=== PATIENT | female | born 1950 | race Caucasian/White ===

== ENCOUNTER → 2016-10-30 | Outpatient (CLI) | payer MEDICARE ==
[2016-10-31 17:00] LABS: Hepatits C Virus RNA, Quant <12 IU/mL (<12); LOG HCV IU/mL <1.08 (<1.08)
== END | disposition home or self-care (01) ==
LOC: LABWHC1 12:05
DX: B18.2 Chronic viral hepatitis C (principal)
CPT/HCPCS: 36415; 82105; 87522

== ENCOUNTER → 2016-11-19 | Outpatient (CLI) | payer MEDICARE ==
[2016-11-19 18:45] LABS: Basophils % (A) 0 %; CHCM 31.7; Eosinophils % (A) 0 %; HCT 32.4 % (34.0-46.0); HDW 2.79; HGB 10.5 gm/dL (11.4-16.0); Hypochromasia Slight; Luc # (Auto) 0.02; Luc % (Auto) 1; Lymphocytes # (A) 0.7 k/uL (1.0-4.8); Lymphocytes % (A) 21 %; MCH 28.6 pg (25.0-35.0); MCHC 32.2 g/dL (31.0-37.0); MCV 88.6 fL (80.0-100.0); Mean Platelet Volume 7.9; Monocytes # (A) 0.1 k/uL (0-1.0); Monocytes % (A) 2 %; Neutrophils # (A) 2.5 k/uL (1.3-7.7); Neutrophils % (A) 76 %; RBC 3.66 m/uL (3.80-5.40); WBC 3.2 k/uL (3.8-10.6); WBC (Perox) 3.29
[2016-11-19 18:59] LABS: ALT 14 U/L (9-52); AST 20 U/L (14-36); Alkaline Phosphatase 58 U/L (38-126); Anion Gap 12 mmol/L; Blood Urea Nitrogen 13 mg/dL (7-17); Calcium 9.5 mg/dL (8.4-10.2); Carbon Dioxide 21 mmol/L (22-30); Chloride 107 mmol/L (98-107); Glucose 171 mg/dL (74-99); Non-African American GFR(MDRD) 55 (>60 ml/min/1.73 sqM); Potassium 4.8 mmol/L (3.5-5.1); Sodium 140 mmol/L (137-145); Total Bilirubin 0.4 mg/dL (0.2-1.3)
--- NOTE | 2016-11-19 19:45 | CT ---
EXAMINATION TYPE: CT abdomen wo/w con DATE OF EXAM: 11/19/2016 7:29 PM COMPARISON: 05/03/2015 HISTORY: Upper Abdominal pain CT DLP: 415.6 mGycm Automated exposure control for dose reduction was used. TECHNIQUE: Helical acquisition of images was performed from the lung bases through the top of iliac crest to include entire abdomen. CONTRAST: Performed with Oral Contrast and with IV Contrast, patient injected with 80 mL of Visipaque 320. FINDINGS: There are emphysematous changes at the lung bases. There is no pleural effusion. There is aortoiliac stent noted. There is no pericardial effusion. Liver shows no focal defect. Bile ducts are not dilated. Gallbladde r appears normal. There is no pancreatic mass. Spleen appears normal. Kidneys show satisfactory contrast opacification. There is no hydronephrosis. Noncontrast images show no renal calculus. There is aneurysm of the abdominal aorta that measures up to 4.5 cm. There is nor mal contrast opacification of the aortoiliac stent. I see no bony destructive process. There is no compression fracture. I see no intestinal wall thickening. There is no sign of ascites. IMPRESSION: AORTOILIAC STENT APPEARS IN GOOD POSITION. LARGE FUSIFORM ABDOMINAL AORTIC ANEURYSM IS STABLE COMPARE D TO OLD EXAM. NO SIGN OF AN ACUTE ABDOMEN. EMPHYSEMA. I DO NOT SEE A CAUSE FOR EPIGASTRIC PAIN.
== END | disposition home or self-care (01) ==
LOC: RADCTMAIN 17:55
DX: I71.4 Abdominal aortic aneurysm, without rupture (principal); R10.13 Epigastric pain; Z95.828 Presence of other vascular implants and grafts
CPT/HCPCS: 80053; 85025; 74170; 36415; Q9967

== ENCOUNTER → 2016-11-26 | Outpatient (CLI) | payer MEDICARE ==
--- NOTE | 2016-11-26 13:00 | MR ---
EXAMINATION TYPE: MR brain wo/w con DATE OF EXAM: 11/26/2016 12:00 PM COMPARISON: MRI brain February 15, 2014. HISTORY: Memory Loss / Atypical Face Pain TECHNIQUE: Multiplanar, multisequence images of the brain and brainstem is performed without and with IV contras t, utilizing 10 mL intravenous MultiHance . FINDINGS: Diffusion weighted images demonstrate no evidence of a recent infarct or other diffusion ab normality. There is no worrisome extra-axial fluid collection. The ventricular system and cisternal spaces are normal in size and appearance. The brain volume is age appropriate. There are some scatt ered foci of T2 hyperintensity seen throughout the deep and periventricular white matter. Approximate ly 10-15 scattered lesions are present. Largest measures 9 mm right patel radiata on axial image 20 stable from prior exam. No significant change from prior study is seen. Midline structures demonstrate normal morphology. The craniocervical junction appears within normal limits. Post contrast images demonstrate no new areas of abnormal enhancement. Prominent vascular st ructure right parietal-occipital level on axial images 19 through 23 is redemonstrated consistent wit h venous angioma. The dural venous sinuses appear patent. The visualized sinuses are clear and the gl obes are intact. Some increased fluid signal right mastoid air cells is present similar to prior. IMPRESSION: Mild nonspecific white matter changes may be on basis of chronic small vessel ischemic ch latasha in patient this age redemonstrated. Overall no significant change from prior MRI. No new suspici ous findings are evident.
== END | disposition home or self-care (01) ==
LOC: RADMRIMAIN 11:05
PROVIDERS: ATTEND Otolaryngology
DX: R90.82 White matter disease, unspecified (principal)
CPT/HCPCS: 70553; A9577

== ENCOUNTER → 2016-12-25 | Outpatient (CLI) | payer MEDICARE ==
--- NOTE | 2016-12-25 13:14 | FL ---
EXAMINATION TYPE: FL barium swallow DATE OF EXAM: 12/25/2016 12:12 PM COMPARISON: 01/27/2015 HISTORY: Dysphasia TECHNIQUE: Single contrast barium swallow FINDINGS: Barium was swallowed without difficulty and passed into the esophagus without delay. There is a reduced caliber of the esophagus at the level of the cervical spine surgical site involving the upper, mid and lower cervical spine. Mid and distal esophagus demonstrated normal peristalsis and motility with no hiatal hernia. No reflu x seen on today's exam. IMPRESSION: 1. No evidence of obstruction. No intraluminal filling defect. There is reduced caliber of the esopha juancarlos within the cervical spine at the level of the previous cervical spinal surgery. Correlate with di rect visualization as clinically warranted.
== END | disposition home or self-care (01) ==
LOC: RADFLWHC 11:20
PROVIDERS: ATTEND Family Medicine
DX: K22.8 Other specified diseases of esophagus (principal); R10.9 Unspecified abdominal pain; Z98.890 Other specified postprocedural states
CPT/HCPCS: 74220

== ENCOUNTER → 2016-12-27 | Outpatient (CLI) | payer MEDICARE ==
--- NOTE | 2016-12-30 11:54 | MM ---
Reason for exam: screening (asymptomatic). Last mammogram was performed 1 year and 3 months ago. History: Patient is postmenopausal. Physical Findings: A clinical breast exam by your physician is recommended on an annual basis and results should be correlated with mammographic findings. MG 3D Screening Mammo W/Cad Bilateral CC and MLO view(s) were taken. Prior study comparison: September 20, 2015, bilateral MG 3d screening mammo w/cad. October 28, 2013, bilateral digital screening mammo w/CAD. October 26, 2012, bilateral digital screening mammo w/CAD. The breast tissue is extremely dense which could obscure a lesion on mammography. Finding: There are typically benign dystrophic, round calcifications in both breasts. There is no discrete abnormality. ASSESSMENT: Benign, BI-RAD 2 RECOMMENDATION: Routine screening mammogram of both breasts in 1 year.
== END | disposition home or self-care (01) ==
LOC: RADMAMWWP 14:45
PROVIDERS: ATTEND Family Medicine
DX: Z12.31 Encounter for screening mammogram for malignant neoplasm of breast (principal)
CPT/HCPCS: 77063; G0202

== ENCOUNTER 2017-01-31 08:18 | Day surgery (SDC) | payer MEDICARE ==
[2017-01-30 10:31] VITALS: BMI 18.2
[~2017-01-31 08:18] MED LIST: LACTATED RINGERS 1,000 ML IV SCH; LIDOCAINE 1% 20 ML VIAL (10MG/ML) FOR IV START INTRADERMA PRN
[2017-01-31 09:20] VITALS: RESP 16; TEMP 97.7
[2017-01-31] MEDS ORDERED: PROPOFOL 10 MG/ML 20 ML VIAL IV ONE (09:29)
--- NOTE | 2017-01-31 09:33 | P.GSHP ---
History of Present Illness H&P Date: 01/31/17 Chief Complaint: GERD, dysphagia Patient today with complaints of dysphagia. She has history of chronic reflux. She has had an upper endoscopy in the past but does not recall what showed. Dysphagia is worse with solids. Past Medical History Past Medical History: Chest Pain / Angina, COPD, Deep Vein Thrombosis (DVT), GERD/Reflux, Hypertension, Liver Disease, Myocardial Infarction ([place]), Musculoskeletal Disorder, Sleep Apnea/CPAP/BIPAP, Vascular Disorder Additional Past Medical History / Comment(s): Abominal Aortic Aneurysm(HAD SX). DVT RT LEG. HEP C, BACK PROB, DDD. VARICOSE VEINS. O2 2 LITERS N/C FOR PRN USE AT NIGHT. Last Myocardial Infarction Date:: 06/2011 History of Any Multi-Drug Resistant Organisms: None Reported Past Surgical History: Bladder Surgery, Heart Catheterization With Stent, Hysterectomy, Orthopedic Surgery Additional Past Surgical History / Comment(s): HEART STENT 2010. AAA REPAIR; AAA STENT 2005. VARICOSE VEIN STRIPPING. EXP LAP. BX THROAT/LIVER/STOMACH. HAD RT FOOT INFECTION, sx x2 SALMONELLA. R SHOULDER SCOPE. left knee arthroscopy Past Anesthesia/Blood Transfusion Reactions: No Reported Reaction Date of Last Stent Placement:: 2010 Smoking Status: Current every day smoker - Past Family History Father Additional Family Medical History / Comment(s): FROM CIRRHOSIS OF THE LIVER Mother Family Medical History: COPD Additional Family Medical History / Comment(s): FROM AAA, HAD HX TB Medications and Allergies Home Medications Medication Instructions Recorded Confirmed Type ALPRAZolam [Xanax] 1 mg PO QID 12/27/13 01/30/17 History Albuterol Sulfate [Ventolin HFA] 2 puff INHALATION RT-TID PRN 12/27/13 01/30/17 History Aspirin 81 mg PO DAILY@1700 12/27/13 01/31/17 History Atenolol [Tenormin] 12.5 mg PO HS 12/27/13 01/30/17 History Dexlansoprazole [Dexilant] 60 mg PO DAILY 12/27/13 01/30/17 History Fluticasone/Salmeterol [Advair 2 puff INHALATION RT-BID 12/27/13 01/30/17 History 250-50 Diskus] Sucralfate [Carafate] 1 gm PO TID 12/27/13 01/30/17 History cycloSPORINE [Restasis] 2 drop BOTH EYES BID 12/27/13 01/30/17 History Albuterol Nebulized [Ventolin 2.5 mg INHALATION RT-Q4H PRN 09/12/14 01/30/17 History Nebulized] DULoxetine HCL [Cymbalta] 30 mg PO DAILY 09/12/14 01/30/17 History DULoxetine HCL [Cymbalta] 60 mg PO HS 09/12/14 01/30/17 History Pramipexole [Mirapex] 0.125 mg PO HS 09/12/14 01/30/17 History Tiotropium 18 Mcg/Puff [Spiriva] 1 cap INHALATION RT-HS 09/12/14 01/30/17 History Topiramate [Topamax] 50 mg PO BID 05/03/15 01/30/17 History Oxybutynin Xl [Ditropan XL] 5 mg PO BID 05/16/15 01/30/17 History Nicotine 14Mg/24Hr Patch [Habitrol] 1 patch TRANSDERM DAILY PRN 01/30/17 History Nitroglycerin Sl Tabs [Nitrostat] 0.4 mg SUBLINGUAL Q5M PRN 01/30/17 01/30/17 History guaiFENesin [Mucinex] 1,200 mg PO BID 01/30/17 01/30/17 History Allergies Allergy/AdvReac Type Severity Reaction Status Date / Time naproxen sodium [From Aleve] Allergy Severe Anaphylaxis Verified 01/31/17 09:18 adhesive Allergy Rash/Hives Verified 01/31/17 09:18 cinnamon [Cinnamon] Allergy Dyspnea Verified 01/31/17 09:18 clindamycin Allergy Anaphylaxis Verified 01/31/17 09:18 codeine Allergy Nausea & Verified 01/31/17 09:18 Vomiting gentamicin [Gentamicin] Allergy SWELLING Verified 01/31/17 09:18 OF FACE W/ EYE DROPS Iodinated Contrast Media - Allergy VAGINAL Verified 01/31/17 09:18 Oral and BLEEDING [Iodinated Contrast Media - AFTER IV Dye] latex Allergy Rash/Hives Verified 01/31/17 09:18 levothyroxine sodium Allergy Unknown Verified 01/31/17 09:18 [From Synthroid] montelukast sodium Allergy Wheezing Verified 01/31/17 09:18 [From Singulair] pantoprazole sodium Allergy Abdominal Verified 01/31/17 09:18 [From Protonix] Pain Penicillins Allergy Rash/Hives Verified 01/31/17 09:18 red dye Allergy Abdominal Verified 01/31/17 09:18 Pain Sulfa (Sulfonamide Allergy Swelling Verified 01/31/17 09:18 Antibiotics) IN MOUTH sulfamethoxazole Allergy swelling Verified 01/31/17 09:18 [From Bactrim] tongue trimethoprim [From Bactrim] Allergy Swelling Verified 01/31/17 09:18 venom-honey bee Allergy Dyspnea Verified 01/31/17 09:18 [bee venom (honey bee)] BANDAIDS Allergy Rash/Hives Uncoded 01/31/17 09:18 paola Allergy Dyspnea Uncoded 01/31/17 09:18 Surgical - Exam Vital Signs Temp Pulse Resp BP Pulse Ox 97.7 F 60 16 134/88 98 01/31/17 09:19 01/31/17 09:19 01/31/17 09:19 01/31/17 09:19 01/31/17 09:19 Physical exam: General: Well-developed, somewhat malnourished HEENT: Normocephalic, sclerae nonicteric Abdomen: Nontender, nondistended Extremities: No edema Neuro: Alert and oriented Assessment and Plan (1) GERD (gastroesophageal reflux disease) Narrative/Plan: Will proceed with upper endoscopy and possible dilation at this time. Risks of bleeding and perforation were discussed. She understands and wishes to proceed. Status: Acute
--- NOTE | 2017-01-31 09:43 | P.PCN ---
Date of Procedure: 01/31/17 Preoperative Diagnosis: Postoperative Diagnosis: Procedure(s) Performed: Preoperative Dx: Dysphagia, GERD Postoperative Dx: Duodenitis, gastritis, small hiatal hernia Procedure: EGD with Bx Anesthesia: Sedation Endoscopist: Dr. Negron Specimens: Duodenum, antrum Endoscopic Procedure: The patient was on the endoscopy table in the left decubitus position. The Olympus gastroscope was inserted into the oropharynx and passed under direct visualization to the region of the third portion of the duodenum. From that point the scope was slowly withdrawn inspecting all surfaces carefully. There were no neoplastic inflammatory or polypoid lesions throughout the duodenum. Biopsy of the duodenum took place. The pylorus was widely patent. The stomach was carefully inspected. There was gastritis present. A biopsy of the antrum took place to rule out H. pylori. Retroflexion revealed a small hiatal hernia. The esophagus was then carefully examined. There were no neoplastic inflammatory or polypoid lesions throughout the visualized esophagus. The patient was then taken to the recovery room in stable condition per anesthesia guidelines. Recommendations: Await biopsy results. Add antiacids. Implants: Indications for Procedure: Operative Findings: Description of Procedure:
[2017-01-31 10:18] VITALS: BP 131/60; PULSE 61
== END 2017-01-31 10:43 | disposition home or self-care (01) ==
LOC: ORWHC2ENDO 08:18
PROVIDERS: ATTEND Surgery
DX: K21.9 Gastro-esophageal reflux disease without esophagitis (principal); K29.50 Unspecified chronic gastritis without bleeding; K29.80 Duodenitis without bleeding; K44.9 Diaphragmatic hernia without obstruction or gangrene; J44.9 Chronic obstructive pulmonary disease, unspecified; I10 Essential (primary) hypertension; F32.9 Major depressive disorder, single episode, unspecified; G47.33 Obstructive sleep apnea (adult) (pediatric); I25.2 Old myocardial infarction; F17.200 Nicotine dependence, unspecified, uncomplicated; Z99.81 Dependence on supplemental oxygen; Z88.6 Allergy status to analgesic agent; Z91.048 Other nonmedicinal substance allergy status; Z88.5 Allergy status to narcotic agent; Z88.1 Allergy status to other antibiotic agents; Z91.041 Radiographic dye allergy status; Z91.018 Allergy to other foods; Z91.040 Latex allergy status; Z88.0 Allergy status to penicillin; Z88.2 Allergy status to sulfonamides; Z91.030 Bee allergy status; Z88.8 Allergy status to other drugs, medicaments and biological substances; Z79.82 Long term (current) use of aspirin; Z79.51 Long term (current) use of inhaled steroids; Z79.899 Other long term (current) drug therapy; Z86.718 Personal history of other venous thrombosis and embolism; Z95.5 Presence of coronary angioplasty implant and graft; Z83.6 Family history of other diseases of the respiratory system; Z90.710 Acquired absence of both cervix and uterus
CPT/HCPCS: 43239; 88305; 88342; J2704

== ENCOUNTER 2017-02-13 10:54 | Inpatient (IN) | payer MEDICARE ==
[2017-02-13] MEDS ORDERED: methylPREDNISolone SOD SUCCI 125 MG/2 ML VIAL IV STA (10:56)
[2017-02-13] MEDS ORDERED: ALBUTEROL NEBULIZED 2.5 MG/3 ML INHALATION STA (10:56)
--- NOTE | 2017-02-13 11:18 | ED ---
General Adult HPI - General Chief complaint: Shortness of Breath Stated complaint: Diff breathing Time Seen by Provider: 02/13/17 11:00 Source: patient, RN notes reviewed Mode of arrival: EMS Limitations: no limitations - History of Present Illness Initial comments: This is a 66-year-old female who presents emergency Department with a past medical history significant for COPD. Patient comes in today because she is extremely short of breath. Patient states any exertion makes it considerably worse. Patient states EMS gave her some breathing treatments and put on BiPAP and that is made her feel considerably better. Patient denies any recent fever or chills. Patient states she does have a cough recently. Patient denies any sputum production. Patient denies chest pain or palpitations. Patient denies abdominal pain patient denies nausea vomiting diarrhea. Patient denies any lightheadedness dizziness or syncopal episodes. - Related Data Home Medications Medication Instructions Recorded Confirmed ALPRAZolam [Xanax] 1 mg PO QID PRN 12/27/13 02/13/17 Albuterol Sulfate [Ventolin HFA] 2 puff INHALATION RT-TID PRN 12/27/13 02/13/17 Aspirin 81 mg PO DAILY@1700 12/27/13 02/13/17 Atenolol [Tenormin] 12.5 mg PO HS 12/27/13 02/13/17 Dexlansoprazole [Dexilant] 60 mg PO DAILY 12/27/13 02/13/17 Sucralfate [Carafate] 1 gm PO [facility] 12/27/13 02/13/17 cycloSPORINE [Restasis] 2 drop BOTH EYES BID 12/27/13 02/13/17 Albuterol Nebulized [Ventolin 2.5 mg INHALATION RT-QID PRN 09/12/14 02/13/17 Nebulized] DULoxetine HCL [Cymbalta] 30 mg PO DAILY 09/12/14 02/13/17 DULoxetine HCL [Cymbalta] 60 mg PO 09/12/14 02/13/17 Pramipexole [Mirapex] 0.125 mg PO HS 09/12/14 02/13/17 Tiotropium 18 Mcg/Puff [Spiriva] 1 cap INHALATION RT-HS 09/12/14 02/13/17 Topiramate [Topamax] 50 mg PO BID 05/03/15 02/13/17 Oxybutynin Xl [Ditropan XL] 5 mg PO BID 05/16/15 02/13/17 Nicotine 14Mg/24Hr Patch [Habitrol] 1 patch TRANSDERM DAILY PRN 01/30/17 Nitroglycerin Sl Tabs [Nitrostat] 0.4 mg SUBLINGUAL Q5M PRN 01/30/17 02/13/17 Calcium Carbonate/Vitamin D3 1 tab PO DAILY 02/13/17 02/13/17 [Calcium 600-Vit D3 800 Tab] Cholecalciferol [Vitamin D3] 1,000 unit PO DAILY 02/13/17 02/13/17 Fluticasone/Salmeterol [Advair Hfa 2 puff INHALATION RT-BID 02/13/17 02/13/17 115-21 Mcg Inhaler] guaiFENesin [Mucinex] 600 mg PO BID 02/13/17 02/13/17 Previous Rx's Medication Instructions Recorded Famotidine [Pepcid] 20 mg PO DAILY #90 tablet 01/31/17 Allergies Allergy/AdvReac Type Severity Reaction Status Date / Time naproxen sodium [From Aleve] Allergy Severe Anaphylaxis Verified 02/13/17 11:51 adhesive Allergy Rash/Hives Verified 01/31/17 09:18 cinnamon [Cinnamon] Allergy Dyspnea Verified 01/31/17 09:18 clindamycin Allergy Anaphylaxis Verified 01/31/17 09:18 codeine Allergy Nausea & Verified 02/13/17 11:51 Vomiting gentamicin [Gentamicin] Allergy SWELLING Verified 01/31/17 09:18 OF FACE W/ EYE DROPS Iodinated Contrast Media - Allergy VAGINAL Verified 02/13/17 11:51 Oral and BLEEDING [Iodinated Contrast Media - AFTER IV Dye] latex Allergy Rash/Hives Verified 02/13/17 11:51 levothyroxine sodium Allergy Unknown Verified 01/31/17 09:18 [From Synthroid] montelukast sodium Allergy Wheezing Verified 02/13/17 11:51 [From Singulair] pantoprazole sodium Allergy Abdominal Verified 01/31/17 09:18 [From Protonix] Pain Penicillins Allergy Rash/Hives Verified 02/13/17 11:51 red dye Allergy Abdominal Verified 02/13/17 11:51 Pain Sulfa (Sulfonamide Allergy Swelling Verified 02/13/17 11:51 Antibiotics) IN MOUTH sulfamethoxazole Allergy swelling Verified 02/13/17 11:51 [From Bactrim] tongue trimethoprim [From Bactrim] Allergy Swelling Verified 02/13/17 11:51 venom-honey bee Allergy Dyspnea Verified 01/31/17 09:18 [bee venom (honey bee)] BANDAIDS Allergy Rash/Hives Uncoded 01/31/17 09:18 paola Allergy Dyspnea Uncoded 01/31/17 09:18 Review of Systems ROS Statement: Those systems with pertinent positive or pertinent negative responses have been documented in the HPI. ROS Other: All systems not noted in ROS Statement are negative. Past Medical History Past Medical History: Asthma, Chest Pain / Angina, COPD, Deep Vein Thrombosis ( DVT), GERD/Reflux, Hypertension, Liver Disease, Myocardial Infarction ([place]), Musculoskeletal Disorder, Sleep Apnea/CPAP/BIPAP, Vascular Disorder Additional Past Medical History / Comment(s): Abominal Aortic Aneurysm(HAD SX). DVT RT LEG. HEP C, BACK PROB, DDD. VARICOSE VEINS. O2 2 LITERS N/C FOR PRN USE AT NIGHT. Last Myocardial Infarction Date:: 06/2011 History of Any Multi-Drug Resistant Organisms: None Reported Past Surgical History: Bladder Surgery, Heart Catheterization With Stent, Hysterectomy, Orthopedic Surgery Additional Past Surgical History / Comment(s): HEART STENT 2010. AAA REPAIR; AAA STENT 2005. VARICOSE VEIN STRIPPING. EXP LAP. BX THROAT/LIVER/STOMACH. HAD RT FOOT INFECTION, SALMONELLA.R SHOULDER SCOPE. Past Anesthesia/Blood Transfusion Reactions: No Reported Reaction Date of Last Stent Placement:: 2010 Past Psychological History: Depression, Panic Disorder Smoking Status: Former smoker - Past Family History Father Additional Family Medical History / Comment(s): FROM CIRRHOSIS OF THE LIVER Mother Family Medical History: COPD Additional Family Medical History / Comment(s): FROM AAA, HAD HX TB General Exam - General Exam Comments Initial Comments: GENERAL: Patient is well-developed and well-nourished. Patient is nontoxic and well- hydrated and is in mild distress. ENT: Neck is soft and supple. No significant lymphadenopathy is noted. Oropharynx is clear. Moist mucous membranes. Neck has full range of motion without eliciting any pain. EYES: The sclera were anicteric and conjunctiva were pink and moist. Extraocular movements were intact and pupils were equal round and reactive to light. Eyelids were unremarkable. PULMONARY: Unlabored respirations. Patient has diminished breath sounds throughout. CARDIOVASCULAR: There is a regular rate and rhythm without any murmurs gallops or rubs. ABDOMEN: Soft and nontender with normal bowel sounds. No palpable organomegaly was noted. There is no palpable pulsatile mass. SKIN: Skin is clear with no lesions or rashes and otherwise unremarkable. NEUROLOGIC: Patient is alert and oriented x3. Cranial nerves II through XII are grossly intact. Motor and sensory are also intact. Normal speech, volume and content. Symmetrical smile. MUSCULOSKELETAL: Normal extremities with adequate strength and full range of motion. No lower extremity swelling or edema. No calf tenderness. LYMPHATICS: No significant lymphadenopathy is noted PSYCHIATRIC: Normal psychiatric evaluation. Normal interpersonal interactions appears functionally intact in deals appropriately with others. No signs of depression. No signs of anxiety. Limitations: no limitations Course Vital Signs 02/13/17 02/13/17 02/13/17 10:59 11:14 11:33 Temperature 97.8 F Pulse Rate 78 74 76 Respiratory 28 H Rate Blood Pressure 165/98 O2 Sat by Pulse 97 Oximetry Medical Decision Making - Medical Decision Making EKG shows normal sinus rhythm at 70 bpm IN interval is 158 QRSs 84 QT interval is 418 QTC is 451. Patient's EKG shows no ST segment elevation or depression or T-wave abnormality is noted. Chest x-ray shows severe COPD. Patient had to be on BiPAP keep her oxygenation up while she was in the emergency department. She received 2 breathing treatments emergency department after she had already received 2 in route. Patient also got Solu-Medrol. Patient was admitted I wrote admitting orders I spoke with the admitting physician for Dr. Colbert and he agreed with admission. - Lab Data Result diagrams: 02/13/17 11:05 02/13/17 11:05 Lab Results 02/13/17 02/13/17 02/13/17 Range/Units 11:05 11:05 11:05 WBC 6.8 (3.8-10.6) k/uL RBC 3.96 (3.80-5.40) m/uL Hgb 10.6 L (11.4-16.0) gm/dL Hct 33.6 L (34.0-46.0) % MCV 84.9 D (80.0-100.0) fL MCH 26.8 (25.0-35.0) pg MCHC 31.6 (31.0-37.0) g/dL RDW 15.6 H (11.5-15.5) % Plt Count 176 (150-450) k/uL Neutrophils % 47 % Lymphocytes % 35 % Monocytes % 5 % Eosinophils % 11 % Basophils % 1 % Neutrophils # 3.2 (1.3-7.7) k/uL Lymphocytes # 2.4 (1.0-4.8) k/uL Monocytes # 0.3 (0-1.0) k/uL Eosinophils # 0.8 H (0-0.7) k/uL Basophils # 0.0 (0-0.2) k/uL Hypochromasia Slight PT (9.0-12.0) sec INR (<1.1) APTT (22.0-30.0) sec Sodium 143 (137-145) mmol/L Potassium 3.9 (3.5-5.1) mmol/L Chloride 111 H (98-107) mmol/L Carbon Dioxide 21 L (22-30) mmol/L Anion Gap 11 mmol/L BUN 13 (7-17) mg/dL Creatinine 0.85 (0.52-1.04) mg/dL Est GFR (MDRD) Af Amer >60 (>60 ml/min/1.73 sqM) Est GFR (MDRD) Non-Af >60 (>60 ml/min/1.73 sqM) Glucose 115 H (74-99) mg/dL Calcium 8.9 (8.4-10.2) mg/dL Total Bilirubin 0.5 (0.2-1.3) mg/dL AST 25 (14-36) U/L ALT 17 (9-52) U/L Alkaline Phosphatase 64 (38-126) U/L Total Creatine Kinase 81 (30-135) U/L CK-MB (CK-2) 1.1 (0.0-2.4) ng/mL CK-MB (CK-2) Rel Index 1.4 Troponin I <0.012 (0.000-0.034) ng/mL Total Protein 6.5 (6.3-8.2) g/dL Albumin 3.8 (3.5-5.0) g/dL 06/29/17 Range/Units 11:05 WBC (3.8-10.6) k/uL RBC (3.80-5.40) m/uL Hgb (11.4-16.0) gm/dL Hct (34.0-46.0) % MCV (80.0-100.0) fL MCH (25.0-35.0) pg MCHC (31.0-37.0) g/dL RDW (11.5-15.5) % Plt Count (150-450) k/uL Neutrophils % % Lymphocytes % % Monocytes % % Eosinophils % % Basophils % % Neutrophils # (1.3-7.7) k/uL Lymphocytes # (1.0-4.8) k/uL Monocytes # (0-1.0) k/uL Eosinophils # (0-0.7) k/uL Basophils # (0-0.2) k/uL Hypochromasia PT 10.4 (9.0-12.0) sec INR 1.0 (<1.1) APTT 22.5 (22.0-30.0) sec Sodium (137-145) mmol/L Potassium (3.5-5.1) mmol/L Chloride (98-107) mmol/L Carbon Dioxide (22-30) mmol/L Anion Gap mmol/L BUN (7-17) mg/dL Creatinine (0.52-1.04) mg/dL Est GFR (MDRD) Af Amer (>60 ml/min/1.73 sqM) Est GFR (MDRD) Non-Af (>60 ml/min/1.73 sqM) Glucose (74-99) mg/dL Calcium (8.4-10.2) mg/dL Total Bilirubin (0.2-1.3) mg/dL AST (14-36) U/L ALT (9-52) U/L Alkaline Phosphatase (38-126) U/L Total Creatine Kinase (30-135) U/L CK-MB (CK-2) (0.0-2.4) ng/mL CK-MB (CK-2) Rel Index Troponin I (0.000-0.034) ng/mL Total Protein (6.3-8.2) g/dL Albumin (3.5-5.0) g/dL Critical Care Time Critical Care Time: Yes Total Critical Care Time: 35 Disposition Clinical Impression: Acute exacerbation of chronic obstructive airways disease Disposition: ADMITTED IP TO THIS HOSP Referrals: Jenaro Colbert DO [Primary Care Provider] - 1-2 days Time of Disposition: 12:33
[2017-02-13 11:21] LABS: Basophils % (A) 1 %; CH 26.7; CHCM 31.6; Eosinophils # (A) 0.8 k/uL (0-0.7); Eosinophils % (A) 11 %; HCT 33.6 % (34.0-46.0); HDW 2.99; HGB 10.6 gm/dL (11.4-16.0); Hypochromasia Slight; Luc # (Auto) 0.13; Luc % (Auto) 2; Lymphocytes # (A) 2.4 k/uL (1.0-4.8); Lymphocytes % (A) 35 %; MCH 26.8 pg (25.0-35.0); MCHC 31.6 g/dL (31.0-37.0); Mean Platelet Volume 8.3; Monocytes # (A) 0.3 k/uL (0-1.0); Monocytes % (A) 5 %; Neutrophils # (A) 3.2 k/uL (1.3-7.7); Neutrophils % (A) 47 %; RBC 3.96 m/uL (3.80-5.40); RDW 15.6 % (11.5-15.5); WBC 6.8 k/uL (3.8-10.6); WBC (Perox) 6.52
[2017-02-13 11:22] LABS: MCV 84.9 fL (80.0-100.0)
[2017-02-13 11:27] LABS: ALT 17 U/L (9-52); AST 25 U/L (14-36); Alkaline Phosphatase 64 U/L (38-126); Anion Gap 11 mmol/L; Blood Urea Nitrogen 13 mg/dL (7-17); Calcium 8.9 mg/dL (8.4-10.2); Carbon Dioxide 21 mmol/L (22-30); Chloride 111 mmol/L (98-107); Glucose 115 mg/dL (74-99); Non-African American GFR(MDRD) >60 (>60 ml/min/1.73 sqM); Potassium 3.9 mmol/L (3.5-5.1); Sodium 143 mmol/L (137-145); Total Bilirubin 0.5 mg/dL (0.2-1.3); Total Protein 6.5 g/dL (6.3-8.2)
[2017-02-13 11:39] LABS: Creatine Kinase 81 U/L (30-135)
[2017-02-13 11:52] LABS: Creatine Kinase MB 1.1 ng/mL (0.0-2.4); Troponin I <0.012 ng/mL (0.000-0.034)
--- NOTE | 2017-02-13 11:52 | XR ---
EXAMINATION TYPE: XR chest 1V DATE OF EXAM: 02/13/2017 COMPARISON: Prior chest x-ray 05/16/2015 HISTORY: Difficulty breathing, shortness of breath TECHNIQUE: Single frontal view of the chest is obtained. FINDINGS: There is no focal air space opacity, pleural effusion, or pneumothorax seen. The cardiac silhouette size is stable. There are overlying cardiac leads. Prominent lung volumes compatible with underlying COPD. Postop changes are noted in the neck. Aortic stent graft is present. The osseous st ructures are intact. IMPRESSION: No acute process.
[2017-02-13 11:57] LABS: Partial Thromboplastin Time 22.5 sec (22.0-30.0); Prothrombin Time 10.4 sec (9.0-12.0)
[2017-02-13] MEDS: IPRATROPIUM-ALBUTEROL 3 ML NEB INHALATION PRN (13:20)
[2017-02-13] MEDS ORDERED: NICOTINE 14MG/24HR PATCH TRANSDERM PRN (14:55)
[2017-02-13] MEDS ORDERED: NITROGLYCERIN SL TABS 0.4 MG TAB SUBLINGUAL PRN (14:55)
--- NOTE | 2017-02-13 15:24 | P.CNPUL ---
History of Present Illness Consult date: 02/13/17 Reason for consult: dyspnea History of present illness: This is a 66-year-old female who presents emergency Department with a past medical history significant for COPD. Patient comes in today because she is extremely short of breath. Patient states any exertion makes it considerably worse. Patient states EMS gave her some breathing treatments and put on BiPAP and that is made her feel considerably better. Patient denies any recent fever or chills. Patient states she does have a cough recently. Patient denies any sputum production. Patient denies chest pain or palpitations. Patient denies abdominal pain patient denies nausea vomiting diarrhea. Patient denies any lightheadedness dizziness or syncopal episodes. The patient is known to me. I have taken care of her COPD in the past. Her FEV1 is relatively preserved with an FEV1 of 87% of predicted. She has been maintained on a combination of Advair and Spiriva. She doesn't use her inhalers on a regular basis. She is also known to have chronic generalized anxiety disorder, chronic hepatitis C, abdominal aortic aneurysm, and hyperlipidemia. Her chest x-ray shows no acute cardiopulmonary process. Her white cell count is not elevated. The rest of the blood work essentially within normal limits. Review of Systems All systems: negative Constitutional: Denies chills, Denies fever Eyes: denies blurred vision, denies pain Ears, nose, mouth and throat: Denies headache, Denies sore throat Cardiovascular: Denies chest pain, Denies shortness of breath Respiratory: Denies cough Gastrointestinal: Denies abdominal pain, Denies diarrhea, Denies nausea, Denies vomiting Genitourinary: Denies dysuria, Denies hematuria Musculoskeletal: Denies myalgias Integumentary: Denies pruritus, Denies rash Neurological: Denies numbness, Denies weakness Psychiatric: Denies anxiety, Denies depression Endocrine: Denies fatigue, Denies weight change Past Medical History Past Medical History: Asthma, Chest Pain / Angina, COPD, Deep Vein Thrombosis ( DVT), GERD/Reflux, Hypertension, Liver Disease, Myocardial Infarction ([place]), Musculoskeletal Disorder, Sleep Apnea/CPAP/BIPAP, Vascular Disorder Additional Past Medical History / Comment(s): COPD, abdominal aortic aneurysm, previous history of a DVT of the right lower extremity, hepatitis C, chronic back pain, osteoarthritis, coronary artery disease, hypertension, RLS. Last Myocardial Infarction Date:: 06/2011 History of Any Multi-Drug Resistant Organisms: None Reported Past Surgical History: Bladder Surgery, Heart Catheterization With Stent, Hysterectomy, Orthopedic Surgery Additional Past Surgical History / Comment(s): Cardiac catheterization and insertion of coronary stent in 2010, abdominal aortic aneurysm endovascular stent insertion 2005, varicose vein stripping in the right lower extremity, liver biopsy, expiratory laparotomy, right foot surgery, right shoulder surgery/ arthroscopy, colonoscopy, bladder suspension surgery, hysterectomy Past Anesthesia/Blood Transfusion Reactions: No Reported Reaction Date of Last Stent Placement:: 2010 Smoking Status: Current every day smoker - Past Family History Father Additional Family Medical History / Comment(s): FROM CIRRHOSIS OF THE LIVER Mother Family Medical History: COPD Additional Family Medical History / Comment(s): FROM AAA, HAD HX TB Medications and Allergies Home Medications Medication Instructions Recorded Confirmed Type ALPRAZolam [Xanax] 1 mg PO QID PRN 12/27/13 02/13/17 History Albuterol Sulfate [Ventolin HFA] 2 puff INHALATION RT-TID PRN 12/27/13 02/13/17 History Aspirin 81 mg PO DAILY@1700 12/27/13 02/13/17 History Atenolol [Tenormin] 12.5 mg PO 12/27/13 02/13/17 History Dexlansoprazole [Dexilant] 60 mg PO DAILY 12/27/13 02/13/17 History Sucralfate [Carafate] 1 gm PO [facility] 12/27/13 02/13/17 History cycloSPORINE [Restasis] 2 drop BOTH EYES BID 12/27/13 02/13/17 History Albuterol Nebulized [Ventolin 2.5 mg INHALATION RT-QID PRN 09/12/14 02/13/17 History Nebulized] DULoxetine HCL [Cymbalta] 30 mg PO DAILY 09/12/14 02/13/17 History DULoxetine HCL [Cymbalta] 60 mg PO HS 09/12/14 02/13/17 History Pramipexole [Mirapex] 0.125 mg PO HS 09/12/14 02/13/17 History Tiotropium 18 Mcg/Puff [Spiriva] 1 cap INHALATION RT-HS 09/12/14 02/13/17 History Topiramate [Topamax] 50 mg PO BID 05/03/15 02/13/17 History Oxybutynin Xl [Ditropan XL] 5 mg PO BID 05/16/15 02/13/17 History Nicotine 14Mg/24Hr Patch [Habitrol] 1 patch TRANSDERM DAILY PRN 01/30/17 History Nitroglycerin Sl Tabs [Nitrostat] 0.4 mg SUBLINGUAL Q5M PRN 01/30/17 02/13/17 History Butalb/APAP/Caff 50-325-40Mg 0.5 tab PO Q4H PRN 02/13/17 02/13/17 History [Fioricet 50-325-40] Calcium Carbonate/Vitamin D3 1 tab PO DAILY 02/13/17 02/13/17 History [Calcium 600-Vit D3 800 Tab] Cholecalciferol [Vitamin D3] 1,000 unit PO DAILY 02/13/17 02/13/17 History Fluticasone/Salmeterol [Advair Hfa 2 puff INHALATION RT-BID 02/13/17 02/13/17 History 115-21 Mcg Inhaler] guaiFENesin [Mucinex] 600 mg PO BID 02/13/17 02/13/17 History Allergies Allergy/AdvReac Type Severity Reaction Status Date / Time naproxen sodium [From Aleve] Allergy Severe Anaphylaxis Verified 02/13/17 11:51 adhesive Allergy Rash/Hives Verified 01/31/17 09:18 cinnamon [Cinnamon] Allergy Dyspnea Verified 01/31/17 09:18 clindamycin Allergy Anaphylaxis Verified 01/31/17 09:18 codeine Allergy Nausea & Verified 02/13/17 11:51 Vomiting gentamicin [Gentamicin] Allergy SWELLING Verified 01/31/17 09:18 OF FACE W/ EYE DROPS Iodinated Contrast Media - Allergy VAGINAL Verified 02/13/17 11:51 Oral and BLEEDING [Iodinated Contrast Media - AFTER IV Dye] latex Allergy Rash/Hives Verified 02/13/17 11:51 levothyroxine sodium Allergy Unknown Verified 01/31/17 09:18 [From Synthroid] montelukast sodium Allergy Wheezing Verified 02/13/17 11:51 [From Singulair] pantoprazole sodium Allergy Abdominal Verified 01/31/17 09:18 [From Protonix] Pain Penicillins Allergy Rash/Hives Verified 02/13/17 11:51 red dye Allergy Abdominal Verified 02/13/17 11:51 Pain Sulfa (Sulfonamide Allergy Swelling Verified 02/13/17 11:51 Antibiotics) IN MOUTH sulfamethoxazole Allergy swelling Verified 02/13/17 11:51 [From Bactrim] tongue trimethoprim [From Bactrim] Allergy Swelling Verified 02/13/17 11:51 venom-honey bee Allergy Dyspnea Verified 01/31/17 09:18 [bee venom (honey bee)] BANDAIDS Allergy Rash/Hives Uncoded 01/31/17 09:18 paola Allergy Dyspnea Uncoded 01/31/17 09:18 Physical Exam Vitals: Vital Signs Temp Pulse Pulse Resp BP BP Pulse Ox 02/13/17 14:15 98.6 F 76 132/100 99 02/13/17 13:39 72 02/13/17 13:23 70 95 02/13/17 13:22 97.5 F L 71 20 152/66 95 02/13/17 12:55 74 18 99 02/13/17 12:45 6 L 02/13/17 12:34 98.8 F 76 28 H 175/79 99 02/13/17 11:33 76 02/13/17 11:14 74 02/13/17 10:59 97.8 F 78 28 H 165/98 97 Intake and Output 02/13/17 02/13/17 02/13/17 06:59 14:59 22:59 Intake Total 0 Balance 0 Intake: Oral 0 Other: Weight 46.72 kg Patient Weight 02/14/17 06:59 Weight 46.72 kg The patient appeared looks thin, frail, somewhat cachectic at this point.. Vital signs as documented. Head exam is unremarkable. No scleral icterus or corneal arcus noted. Neck is without jugular venous distension, thyromegaly, or carotid bruits. Carotid upstrokes are brisk bilaterally. Lungs sounds are markedly diminished bilaterally along with some few scattered expiratory wheezes.. Cardiac exam reveals the PMI to be normally sized and situated. Rhythm is regular. First and second heart sounds normal. No murmurs, rubs or gallops. Abdominal exam reveals normal bowel sounds, no masses, no organomegaly and no aortic enlargement. Extremities are nonedematous and both femoral and pedal pulses are normal. Results - Laboratory Findings CBC and BMP: 02/13/17 11:05 02/13/17 11:05 PT/INR, D-dimer PT 10.4 sec (9.0-12.0) 02/13/17 11:05 INR 1.0 (<1.1) 02/13/17 11:05 Abnormal lab findings: Abnormal Labs 02/13/17 02/13/17 11:05 11:05 Hgb 10.6 L Hct 33.6 L RDW 15.6 H Eosinophils # 0.8 H Chloride 111 H Carbon Dioxide 21 L Glucose 115 H - Diagnostic Findings Chest x-ray: image reviewed Assessment and Plan Plan: Assessment 1 acute COPD exacerbation with secondary shortness of breath. No evidence of pneumonia. 2 smoker 3 coronary artery disease with previous coronary intervention and stenting 4 remote history of a DVT of the right lower extremity 5 abdominal aortic aneurysm status post of the vascular stent grafting 6 hepatitis C viral infection with chronic liver disease 7 chronic back pain 8 hypertension 9 restless leg syndrome Plan We'll treat this patient for an acute COPD exacerbation with a combination of broken related to the steroids. Smoking cessation counseling was done. Outpatient medications will include a combination of Spiriva and Advair. Nutritional advice will be given. We'll continue to follow. Resume outpatient medications. We'll continue to follow.
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
[2017-02-13] MEDS: IPRATROPIUM-ALBUTEROL 3 ML NEB INHALATION SCH ×2 (16:06→19:50)
[2017-02-13 16:40] LABS: Glucose,Whole Blood 194 mg/dL (75-99)
[2017-02-13] MEDS: methylPREDNISolone SOD SUCCI 125 MG/2 ML VIAL IV SCH ×2 (16:49→23:19)
[2017-02-13] MEDS: SUCRALFATE 1 GM TAB PO SCH ×2 (16:49→20:41)
[2017-02-13] MEDS: BUTALB/APAP/CAFF 50-325-40MG TAB PO PRN (16:49)
[2017-02-13] MEDS: ASPIRIN 81 MG CHEW PO SCH (16:49)
[2017-02-13] MEDS: SODIUM CHLORIDE 0.9% 1,000 ML IV SCH (17:36)
[2017-02-13] MEDS: INSULIN LISPRO (humaLOG) 300 UNIT/3 ML VIAL SQ SCH ×2 (17:38→20:50)
[2017-02-13] MEDS ORDERED: TIOTROPIUM 18 MCG/PUFF INHALER INHALATION SCH (20:00)
[2017-02-13] MEDS: SYMBICORT 80-4.5 MCG INHALER INHALATION SCH (20:16)
[2017-02-13] MEDS: ALPRAZolam 0.5 MG TAB PO PRN (20:41)
[2017-02-13] MEDS: guaiFENesin 600 MG TABLET.ER PO SCH (20:41)
[2017-02-13] MEDS: cycloSPORINE 0.05% OPHTH 0.4 ML DROPERETTE BOTH EYES SCH (20:41)
[2017-02-13] MEDS: PRAMIPEXOLE 0.125 MG TAB PO SCH (20:41)
[2017-02-13] MEDS: ATENOLOL 12.5 MG TAB PO SCH (20:41)
[2017-02-13] MEDS: OXYBUTYNIN XL 5 MG TAB.ER.24 PO SCH (20:41)
[2017-02-13] MEDS: DULoxetine HCL 60 MG CAPSULE.DR PO SCH (20:42)
[2017-02-13] MEDS: TOPIRAMATE 25 MG TAB PO SCH (20:42)
[2017-02-13 20:52] LABS: Glucose,Whole Blood 211 mg/dL (75-99)
[2017-02-14] MEDS: IPRATROPIUM-ALBUTEROL 3 ML NEB INHALATION PRN (00:17)
[2017-02-14 05:49] LABS: Glucose,Whole Blood 180 mg/dL (75-99)
[2017-02-14] MEDS: methylPREDNISolone SOD SUCCI 125 MG/2 ML VIAL IV SCH (06:02)
[2017-02-14 06:29] LABS: ALT 17 U/L (9-52); AST 20 U/L (14-36); Alkaline Phosphatase 50 U/L (38-126); Anion Gap 10 mmol/L; Blood Urea Nitrogen 20 mg/dL (7-17); Calcium 9.4 mg/dL (8.4-10.2); Carbon Dioxide 21 mmol/L (22-30); Chloride 111 mmol/L (98-107); Glucose 161 mg/dL (74-99); Non-African American GFR(MDRD) 57 (>60 ml/min/1.73 sqM); Potassium 4.5 mmol/L (3.5-5.1); Sodium 142 mmol/L (137-145); Total Bilirubin 0.4 mg/dL (0.2-1.3); Total Protein 6.1 g/dL (6.3-8.2)
[2017-02-14] MEDS: INSULIN LISPRO (humaLOG) 300 UNIT/3 ML VIAL SQ SCH ×4 (06:51→21:36)
[2017-02-14] MEDS: SUCRALFATE 1 GM TAB PO SCH ×4 (06:51→21:36)
[2017-02-14 07:07] LABS: Basophils % (A) 0 %; CH 26.3; CHCM 30.8; Eosinophils % (A) 0 %; HCT 28.6 % (34.0-46.0); Hypochromasia Moderate; Luc # (Auto) 0.03; Luc % (Auto) 1; Lymphocytes # (A) 0.7 k/uL (1.0-4.8); Lymphocytes % (A) 12 %; MCH 27.3 pg (25.0-35.0); MCHC 31.8 g/dL (31.0-37.0); MCV 85.8 fL (80.0-100.0); Mean Platelet Volume 7.7; Monocytes # (A) 0.2 k/uL (0-1.0); Monocytes % (A) 3 %; Neutrophils % (A) 85 %; RBC 3.33 m/uL (3.80-5.40); RDW 15.5 % (11.5-15.5); WBC 5.9 k/uL (3.8-10.6); WBC (Perox) 6.46
[2017-02-14 07:17] LABS: HGB 9.1 gm/dL (11.4-16.0)
[2017-02-14] MEDS: SYMBICORT 80-4.5 MCG INHALER INHALATION SCH ×2 (08:18→20:14)
[2017-02-14] MEDS: IPRATROPIUM-ALBUTEROL 3 ML NEB INHALATION SCH ×4 (08:18→20:14)
[2017-02-14] MEDS: ALPRAZolam 0.5 MG TAB PO PRN ×2 (08:57→15:15)
[2017-02-14] MEDS: guaiFENesin 600 MG TABLET.ER PO SCH ×2 (08:58→21:36)
[2017-02-14] MEDS: BUTALB/APAP/CAFF 50-325-40MG TAB PO PRN (08:58)
[2017-02-14] MEDS: cycloSPORINE 0.05% OPHTH 0.4 ML DROPERETTE BOTH EYES SCH ×2 (08:59→21:37)
[2017-02-14] MEDS: DULoxetine HCL 30 MG CAPSULE.DR PO SCH (08:59)
[2017-02-14] MEDS: CALCIUM CARB-VIT D 500MG-200UN 1 EACH TAB PO SCH (09:00)
[2017-02-14] MEDS ORDERED: NON-FORMULARY DRUG (Dexlansoprazole [Dexilant] 60 MG) PO SCH (09:00)
[2017-02-14] MEDS ORDERED: FAMOTIDINE 20 MG TAB PO SCH (09:00)
[2017-02-14] MEDS: CHOLECALCIFEROL 1,000 UNIT TAB PO SCH (09:00)
[2017-02-14] MEDS: TOPIRAMATE 25 MG TAB PO SCH ×2 (09:00→21:36)
[2017-02-14] MEDS: OXYBUTYNIN XL 5 MG TAB.ER.24 PO SCH ×2 (09:00→21:37)
[2017-02-14] MEDS: ONDANSETRON 4 MG/2 ML VIAL IVP PRN ×2 (10:28→23:38)
[2017-02-14 10:38] VITALS: BMI 17.9
[2017-02-14] MEDS: methylPREDNISolone SOD SUCCI 40 MG/ML 1 ML VIAL IV SCH ×3 (10:50→23:35)
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
[2017-02-14 11:58] LABS: Glucose,Whole Blood 171 mg/dL (75-99)
--- NOTE | 2017-02-14 15:51 | P.PN ---
Subjective This is a 66-year-old female who presents emergency Department with a past medical history significant for COPD. Patient comes in today because she is extremely short of breath. Patient states any exertion makes it considerably worse. Patient states EMS gave her some breathing treatments and put on BiPAP and that is made her feel considerably better. Patient denies any recent fever or chills. Patient states she does have a cough recently. Patient denies any sputum production. Patient denies chest pain or palpitations. Patient denies abdominal pain patient denies nausea vomiting diarrhea. Patient denies any lightheadedness dizziness or syncopal episodes. The patient is known to me. I have taken care of her COPD in the past. Her FEV1 is relatively preserved with an FEV1 of 87% of predicted. She has been maintained on a combination of Advair and Spiriva. She doesn't use her inhalers on a regular basis. She is also known to have chronic generalized anxiety disorder, chronic hepatitis C, abdominal aortic aneurysm, and hyperlipidemia. Her chest x-ray shows no acute cardiopulmonary process. Her white cell count is not elevated. The rest of the blood work essentially within normal limits. On 02/14/2017 the patient is less short of breath. She is a bit agitated and restless and probably this is a steroid effect. No chest pain. No fever or chills. No pleurisy. No hemoptysis. No change in mental status. Chest x-ray as mentioned showed no evidence of any pneumonia. No other significant events over the past 24 hours. She is on IV Solu-Medrol. She is on DuoNeb the breast units [id number]. Objective - Vital Signs Vital signs: Vital Signs Temp 97.2 F L 02/14/17 08:00 Pulse 82 02/14/17 15:07 Resp 18 02/14/17 04:00 BP 118/50 02/14/17 08:00 Pulse Ox 98 02/14/17 08:00 Intake & Output 02/13/17 02/14/17 02/14/17 18:59 06:59 18:59 Intake Total 0 100 240 Balance 0 100 240 Weight 46.72 kg 45.8 kg 45.8 kg Intake: IV 100 Sodium Chloride 0.9% 1, 100 000 ml @ 50 mls/hr IV . Q20H [facility] Rx#:[id number] Oral 0 240 Other: Voiding Method Toilet # Voids 1 1 - Exam The patient appeared looks thin, frail, somewhat cachectic at this point.. Vital signs as documented. Head exam is unremarkable. No scleral icterus or corneal arcus noted. Neck is without jugular venous distension, thyromegaly, or carotid bruits. Carotid upstrokes are brisk bilaterally. Lungs sounds are markedly diminished bilaterally along with some few scattered expiratory wheezes.. Cardiac exam reveals the PMI to be normally sized and situated. Rhythm is regular. First and second heart sounds normal. No murmurs, rubs or gallops. Abdominal exam reveals normal bowel sounds, no masses, no organomegaly and no aortic enlargement. Extremities are nonedematous and both femoral and pedal pulses are normal. - Labs CBC & Chem 7: 02/14/17 05:47 02/14/17 05:47 Labs: Abnormal Lab Results - Last 24 Hours (Table) 02/13/17 02/13/17 02/14/17 Range/Units 16:38 20:49 05:47 RBC 3.33 L (3.80-5.40) m/uL Hgb 9.1 L D (11.4-16.0) gm/dL Hct 28.6 L (34.0-46.0) % Lymphocytes # 0.7 L (1.0-4.8) k/uL Chloride (98-107) mmol/L Carbon Dioxide (22-30) mmol/L BUN (7-17) mg/dL Glucose (74-99) mg/dL POC Glucose (mg/dL) 194 H 211 H (75-99) mg/dL Total Protein (6.3-8.2) g/dL 02/14/17 02/14/17 02/14/17 Range/Units 05:47 05:48 11:45 RBC (3.80-5.40) m/uL Hgb (11.4-16.0) gm/dL Hct (34.0-46.0) % Lymphocytes # (1.0-4.8) k/uL Chloride 111 H (98-107) mmol/L Carbon Dioxide 21 L (22-30) mmol/L BUN 20 H (7-17) mg/dL Glucose 161 H (74-99) mg/dL POC Glucose (mg/dL) 180 H 171 H (75-99) mg/dL Total Protein 6.1 L (6.3-8.2) g/dL Assessment and Plan Plan: Assessment 1 acute COPD exacerbation with secondary shortness of breath. No evidence of pneumonia. 2 smoker 3 coronary artery disease with previous coronary intervention and stenting 4 remote history of a DVT of the right lower extremity 5 abdominal aortic aneurysm status post of the vascular stent grafting 6 hepatitis C viral infection with chronic liver disease 7 chronic back pain 8 hypertension 9 restless leg syndrome Plan Patient is improving. She is less short of breath. She may be expressing side effects of systemic steroids. She is more anxious. Continue Xanax. Cut down the dose of IV Solu-Medrol. We'll continue to follow.
[2017-02-14] MEDS: SODIUM CHLORIDE 0.9% 1,000 ML IV SCH (15:56)
[2017-02-14] MEDS ORDERED: PANTOPRAZOLE 40 MG TABLET PO SCH (17:30)
[2017-02-14 17:48] LABS: Glucose,Whole Blood 144 mg/dL (75-99)
[2017-02-14] MEDS: ASPIRIN 81 MG CHEW PO SCH (17:54)
[2017-02-14 20:30] LABS: Glucose,Whole Blood 170 mg/dL (75-99)
[2017-02-14] MEDS: PRAMIPEXOLE 0.125 MG TAB PO SCH (21:36)
[2017-02-14] MEDS: ATENOLOL 12.5 MG TAB PO SCH (21:36)
[2017-02-14] MEDS: DULoxetine HCL 60 MG CAPSULE.DR PO SCH (21:36)
[2017-02-15] MEDS: ALPRAZolam 0.5 MG TAB PO PRN ×3 (01:58→22:38)
[2017-02-15 07:21] LABS: Glucose,Whole Blood 126 mg/dL (75-99)
[2017-02-15 08:15] LABS: CH 26.2; CHCM 30.4; HCT 28.9 % (34.0-46.0); HDW 2.91; HGB 9.1 gm/dL (11.4-16.0); Hypochromasia Marked; MCH 27.2 pg (25.0-35.0); MCHC 31.5 g/dL (31.0-37.0); MCV 86.5 fL (80.0-100.0); Mean Platelet Volume 7.9; RBC 3.34 m/uL (3.80-5.40); RDW 15.9 % (11.5-15.5); WBC 12.7 k/uL (3.8-10.6)
[2017-02-15 08:21] LABS: Anion Gap 10 mmol/L; Blood Urea Nitrogen 21 mg/dL (7-17); Calcium 9.8 mg/dL (8.4-10.2); Carbon Dioxide 21 mmol/L (22-30); Chloride 112 mmol/L (98-107); Glucose 107 mg/dL (74-99); Non-African American GFR(MDRD) >60 (>60 ml/min/1.73 sqM); Sodium 143 mmol/L (137-145)
[2017-02-15] MEDS: INSULIN LISPRO (humaLOG) 300 UNIT/3 ML VIAL SQ SCH ×4 (08:38→22:27)
[2017-02-15] MEDS: methylPREDNISolone SOD SUCCI 40 MG/ML 1 ML VIAL IV SCH ×2 (08:39→16:55)
[2017-02-15] MEDS: SUCRALFATE 1 GM TAB PO SCH ×4 (08:39→22:27)
[2017-02-15] MEDS: CALCIUM CARB-VIT D 500MG-200UN 1 EACH TAB PO SCH (08:40)
[2017-02-15] MEDS: CHOLECALCIFEROL 1,000 UNIT TAB PO SCH (08:40)
[2017-02-15] MEDS: Dexlansoprazole [Dexilant] 60 MG PO SCH (08:40)
[2017-02-15] MEDS: cycloSPORINE 0.05% OPHTH 0.4 ML DROPERETTE BOTH EYES SCH ×2 (08:40→22:28)
[2017-02-15] MEDS: guaiFENesin 600 MG TABLET.ER PO SCH ×2 (08:41→22:26)
[2017-02-15] MEDS: TOPIRAMATE 25 MG TAB PO SCH ×2 (08:42→22:27)
[2017-02-15] MEDS: OXYBUTYNIN XL 5 MG TAB.ER.24 PO SCH ×2 (08:42→22:27)
[2017-02-15] MEDS: SYMBICORT 80-4.5 MCG INHALER INHALATION SCH ×2 (09:21→21:37)
[2017-02-15] MEDS: IPRATROPIUM-ALBUTEROL 3 ML NEB INHALATION SCH ×4 (09:21→21:37)
[2017-02-15] MEDS: SENNOSIDES-DOCUSATE SODIUM 1 EACH TAB PO SCH (10:51)
[2017-02-15] MEDS: DULoxetine HCL 30 MG CAPSULE.DR PO SCH (10:52)
[2017-02-15] MEDS: CEPHALEXIN 500 MG CAP PO SCH ×3 (10:52→22:27)
[2017-02-15 11:59] LABS: Glucose,Whole Blood 108 mg/dL (75-99)
--- NOTE | 2017-02-15 13:10 | P.PN ---
Subjective This is a 66-year-old female who presents emergency Department with a past medical history significant for COPD. Patient comes in today because she is extremely short of breath. Patient states any exertion makes it considerably worse. Patient states EMS gave her some breathing treatments and put on BiPAP and that is made her feel considerably better. Patient denies any recent fever or chills. Patient states she does have a cough recently. Patient denies any sputum production. Patient denies chest pain or palpitations. Patient denies abdominal pain patient denies nausea vomiting diarrhea. Patient denies any lightheadedness dizziness or syncopal episodes. The patient is known to me. I have taken care of her COPD in the past. Her FEV1 is relatively preserved with an FEV1 of 87% of predicted. She has been maintained on a combination of Advair and Spiriva. She doesn't use her inhalers on a regular basis. She is also known to have chronic generalized anxiety disorder, chronic hepatitis C, abdominal aortic aneurysm, and hyperlipidemia. Her chest x-ray shows no acute cardiopulmonary process. Her white cell count is not elevated. The rest of the blood work essentially within normal limits. On 02/14/2017 the patient is less short of breath. She is a bit agitated and restless and probably this is a steroid effect. No chest pain. No fever or chills. No pleurisy. No hemoptysis. No change in mental status. Chest x-ray as mentioned showed no evidence of any pneumonia. No other significant events over the past 24 hours. She is on IV Solu-Medrol. She is on DuoNeb the breast units [id number]. On 02/15/2017 the patient is getting better. She is less short of breath. No new complaints for now. No anxiety. No delirium. No other significant events over the past 24 hours. The patient remains on the same treatment and insulin Medrol was tapered off yesterday. Objective - Vital Signs Vital signs: Vital Signs Temp 97.7 F 02/15/17 07:00 Pulse 80 02/15/17 12:58 Resp 20 02/15/17 07:00 BP 142/64 02/15/17 07:00 Pulse Ox 97 02/15/17 07:00 Intake & Output 02/14/17 02/15/17 02/15/17 18:59 06:59 18:59 Intake Total 240 240 Balance 240 240 Weight 45.8 kg Intake: Oral 240 240 Other: Voiding Method Toilet # Voids 1 2 - Exam The patient appeared looks thin, frail, somewhat cachectic at this point.. Vital signs as documented. Head exam is unremarkable. No scleral icterus or corneal arcus noted. Neck is without jugular venous distension, thyromegaly, or carotid bruits. Carotid upstrokes are brisk bilaterally. Lungs sounds are markedly diminished bilaterally along with some few scattered expiratory wheezes.. Cardiac exam reveals the PMI to be normally sized and situated. Rhythm is regular. First and second heart sounds normal. No murmurs, rubs or gallops. Abdominal exam reveals normal bowel sounds, no masses, no organomegaly and no aortic enlargement. Extremities are nonedematous and both femoral and pedal pulses are normal. - Labs CBC & Chem 7: 02/15/17 07:02 02/15/17 07:02 Labs: Abnormal Lab Results - Last 24 Hours (Table) 02/14/17 02/14/17 02/15/17 Range/Units 17:45 20:29 07:02 WBC 12.7 H (3.8-10.6) k/uL RBC 3.34 L (3.80-5.40) m/uL Hgb 9.1 L (11.4-16.0) gm/dL Hct 28.9 L (34.0-46.0) % RDW 15.9 H (11.5-15.5) % Chloride (98-107) mmol/L Carbon Dioxide (22-30) mmol/L BUN (7-17) mg/dL Glucose (74-99) mg/dL POC Glucose (mg/dL) 144 H 170 H (75-99) mg/dL 02/15/17 02/15/17 02/15/17 Range/Units 07:02 07:14 11:57 WBC (3.8-10.6) k/uL RBC (3.80-5.40) m/uL Hgb (11.4-16.0) gm/dL Hct (34.0-46.0) % RDW (11.5-15.5) % Chloride 112 H (98-107) mmol/L Carbon Dioxide 21 L (22-30) mmol/L BUN 21 H (7-17) mg/dL Glucose 107 H (74-99) mg/dL POC Glucose (mg/dL) 126 H 108 H (75-99) mg/dL Assessment and Plan Plan: Assessment 1 acute COPD exacerbation with secondary shortness of breath. No evidence of pneumonia. 2 smoker 3 coronary artery disease with previous coronary intervention and stenting 4 remote history of a DVT of the right lower extremity 5 abdominal aortic aneurysm status post of the vascular stent grafting 6 hepatitis C viral infection with chronic liver disease 7 chronic back pain 8 hypertension 9 restless leg syndrome Plan Patient is improving. Continue same treatment and switch this patient to a prednisone burst taper as of tomorrow. Her condition is stable. Continue same medications.
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
[2017-02-15] MEDS: ASPIRIN 81 MG CHEW PO SCH (16:56)
[2017-02-15] MEDS: ONDANSETRON 4 MG/2 ML VIAL IVP PRN (17:03)
[2017-02-15 17:28] LABS: Glucose,Whole Blood 121 mg/dL (75-99)
[2017-02-15 20:56] LABS: Glucose,Whole Blood 169 mg/dL (75-99)
[2017-02-15] MEDS: SODIUM CHLORIDE 0.9% 1,000 ML IV SCH (21:43)
[2017-02-15 22:06] VITALS: TEMP 97.3
[2017-02-15] MEDS: PRAMIPEXOLE 0.125 MG TAB PO SCH (22:27)
[2017-02-15] MEDS: ATENOLOL 12.5 MG TAB PO SCH (22:27)
[2017-02-15] MEDS: DULoxetine HCL 60 MG CAPSULE.DR PO SCH (22:27)
[2017-02-16] MEDS: SYMBICORT 80-4.5 MCG INHALER INHALATION SCH (07:06)
[2017-02-16] MEDS: IPRATROPIUM-ALBUTEROL 3 ML NEB INHALATION SCH ×2 (07:06→11:09)
[2017-02-16 07:17] LABS: Glucose,Whole Blood 113 mg/dL (75-99)
[2017-02-16] MEDS: cycloSPORINE 0.05% OPHTH 0.4 ML DROPERETTE BOTH EYES SCH (07:25)
[2017-02-16] MEDS: OXYBUTYNIN XL 5 MG TAB.ER.24 PO SCH (07:25)
[2017-02-16] MEDS: CALCIUM CARB-VIT D 500MG-200UN 1 EACH TAB PO SCH (07:26)
[2017-02-16] MEDS: SUCRALFATE 1 GM TAB PO SCH ×2 (07:26→12:03)
[2017-02-16] MEDS: CHOLECALCIFEROL 1,000 UNIT TAB PO SCH (07:26)
[2017-02-16] MEDS: guaiFENesin 600 MG TABLET.ER PO SCH (07:26)
[2017-02-16] MEDS: CEPHALEXIN 500 MG CAP PO SCH (07:27)
[2017-02-16] MEDS: Dexlansoprazole [Dexilant] 60 MG PO SCH (07:27)
[2017-02-16] MEDS: DULoxetine HCL 30 MG CAPSULE.DR PO SCH (07:30)
[2017-02-16] MEDS: TOPIRAMATE 25 MG TAB PO SCH (07:31)
[2017-02-16] MEDS: INSULIN LISPRO (humaLOG) 300 UNIT/3 ML VIAL SQ SCH ×2 (07:31→11:57)
[2017-02-16] MEDS: SENNOSIDES-DOCUSATE SODIUM 1 EACH TAB PO SCH (07:43)
[2017-02-16 07:46] LABS: CH 26.6; CHCM 30.9; HCT 28.3 % (34.0-46.0); HDW 2.88; HGB 8.9 gm/dL (11.4-16.0); Hypochromasia Moderate; MCH 27.2 pg (25.0-35.0); MCHC 31.5 g/dL (31.0-37.0); MCV 86.3 fL (80.0-100.0); Mean Platelet Volume 7.8; RBC 3.29 m/uL (3.80-5.40); WBC 9.5 k/uL (3.8-10.6)
[2017-02-16 07:56] VITALS: BP 158/79; RESP 20
[2017-02-16 07:58] LABS: Anion Gap 7 mmol/L; Blood Urea Nitrogen 18 mg/dL (7-17); Calcium 9.3 mg/dL (8.4-10.2); Carbon Dioxide 24 mmol/L (22-30); Chloride 111 mmol/L (98-107); Glucose 103 mg/dL (74-99); Non-African American GFR(MDRD) >60 (>60 ml/min/1.73 sqM); Potassium 4.4 mmol/L (3.5-5.1); Sodium 142 mmol/L (137-145)
[2017-02-16] MEDS ORDERED: predniSONE 20 MG TAB PO SCH (09:00)
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
[2017-02-16 11:25] VITALS: PULSE 74
[2017-02-16 11:55] LABS: Glucose,Whole Blood 109 mg/dL (75-99)
--- NOTE | 2017-02-16 13:56 | P.PN ---
Subjective This is a 66-year-old female who presents emergency Department with a past medical history significant for COPD. Patient comes in today because she is extremely short of breath. Patient states any exertion makes it considerably worse. Patient states EMS gave her some breathing treatments and put on BiPAP and that is made her feel considerably better. Patient denies any recent fever or chills. Patient states she does have a cough recently. Patient denies any sputum production. Patient denies chest pain or palpitations. Patient denies abdominal pain patient denies nausea vomiting diarrhea. Patient denies any lightheadedness dizziness or syncopal episodes. The patient is known to me. I have taken care of her COPD in the past. Her FEV1 is relatively preserved with an FEV1 of 87% of predicted. She has been maintained on a combination of Advair and Spiriva. She doesn't use her inhalers on a regular basis. She is also known to have chronic generalized anxiety disorder, chronic hepatitis C, abdominal aortic aneurysm, and hyperlipidemia. Her chest x-ray shows no acute cardiopulmonary process. Her white cell count is not elevated. The rest of the blood work essentially within normal limits. On 02/14/2017 the patient is less short of breath. She is a bit agitated and restless and probably this is a steroid effect. No chest pain. No fever or chills. No pleurisy. No hemoptysis. No change in mental status. Chest x-ray as mentioned showed no evidence of any pneumonia. No other significant events over the past 24 hours. She is on IV Solu-Medrol. She is on DuoNeb the breast units [id number]. On 02/15/2017 the patient is getting better. She is less short of breath. No new complaints for now. No anxiety. No delirium. No other significant events over the past 24 hours. The patient remains on the same treatment and insulin Medrol was tapered off yesterday. On 2016 the patient is feeling better and the patient has no specific complaints. She should be potentially discharged home today on a prednisone burst taper. Patient overall is improved. Objective - Vital Signs Vital signs: Vital Signs Temp 97.3 F L 02/15/17 22:04 Pulse 74 02/16/17 11:25 Resp 20 02/16/17 07:00 BP 158/79 02/16/17 07:00 Pulse Ox 100 02/16/17 07:09 Intake & Output 02/15/17 02/16/17 02/16/17 18:59 06:59 18:59 Intake Total 480 Balance 480 Weight 45.8 kg Intake: Oral 480 Other: Voiding Method Toilet Toilet # Voids 2 2 2 - Exam The patient appeared looks thin, frail, somewhat cachectic at this point.. Vital signs as documented. Head exam is unremarkable. No scleral icterus or corneal arcus noted. Neck is without jugular venous distension, thyromegaly, or carotid bruits. Carotid upstrokes are brisk bilaterally. Lungs sounds are markedly diminished bilaterally along with some few scattered expiratory wheezes.. Cardiac exam reveals the PMI to be normally sized and situated. Rhythm is regular. First and second heart sounds normal. No murmurs, rubs or gallops. Abdominal exam reveals normal bowel sounds, no masses, no organomegaly and no aortic enlargement. Extremities are nonedematous and both femoral and pedal pulses are normal. - Labs CBC & Chem 7: 02/16/17 07:10 02/16/17 07:10 Labs: Abnormal Lab Results - Last 24 Hours (Table) 02/15/17 02/15/17 02/16/17 Range/Units 17:24 20:55 07:10 RBC 3.29 L (3.80-5.40) m/uL Hgb 8.9 L (11.4-16.0) gm/dL Hct 28.3 L (34.0-46.0) % RDW 16.0 H (11.5-15.5) % Plt Count 149 L (150-450) k/uL Chloride (98-107) mmol/L BUN (7-17) mg/dL Glucose (74-99) mg/dL POC Glucose (mg/dL) 121 H 169 H (75-99) mg/dL 02/16/17 02/16/17 02/16/17 Range/Units 07:10 07:10 11:44 RBC (3.80-5.40) m/uL Hgb (11.4-16.0) gm/dL Hct (34.0-46.0) % RDW (11.5-15.5) % Plt Count (150-450) k/uL Chloride 111 H (98-107) mmol/L BUN 18 H (7-17) mg/dL Glucose 103 H (74-99) mg/dL POC Glucose (mg/dL) 113 H 109 H (75-99) mg/dL Assessment and Plan Plan: Assessment 1 acute COPD exacerbation with secondary shortness of breath. No evidence of pneumonia. 2 smoker 3 coronary artery disease with previous coronary intervention and stenting 4 remote history of a DVT of the right lower extremity 5 abdominal aortic aneurysm status post of the vascular stent grafting 6 hepatitis C viral infection with chronic liver disease 7 chronic back pain 8 hypertension 9 restless leg syndrome Plan Patient is improving. Discharge home on a prednisone burst taper. Follow-up in the office.
== END 2017-02-16 14:00 | disposition home health service (06) | DRG 192 ==
LOC: EC 10:54 → 6SEL 12:34 → 5MS5E 02-14 12:24
PROVIDERS: ADMIT Internal Medicine; ATTEND Internal Medicine
DX: J44.0 Chronic obstructive pulmonary disease with (acute) lower respiratory infection (principal); Z99.81 Dependence on supplemental oxygen; I11.9 Hypertensive heart disease without heart failure; J44.1 Chronic obstructive pulmonary disease with (acute) exacerbation; F32.9 Major depressive disorder, single episode, unspecified; F17.210 Nicotine dependence, cigarettes, uncomplicated; I25.10 Atherosclerotic heart disease of native coronary artery without angina pectoris; J20.9 Acute bronchitis, unspecified; K21.9 Gastro-esophageal reflux disease without esophagitis; G25.81 Restless legs syndrome; F41.1 Generalized anxiety disorder; K27.9 Peptic ulcer, site unspecified, unspecified as acute or chronic, without hemorrhage or perforation; E78.5 Hyperlipidemia, unspecified; G47.33 Obstructive sleep apnea (adult) (pediatric); N32.81 Overactive bladder; F41.0 Panic disorder [episodic paroxysmal anxiety]; G89.29 Other chronic pain; M54.9 Dorsalgia, unspecified; D63.8 Anemia in other chronic diseases classified elsewhere; G43.909 Migraine, unspecified, not intractable, without status migrainosus; I25.2 Old myocardial infarction; Z86.19 Personal history of other infectious and parasitic diseases; Z86.718 Personal history of other venous thrombosis and embolism; Z90.710 Acquired absence of both cervix and uterus; Z95.5 Presence of coronary angioplasty implant and graft; Z86.79 Personal history of other diseases of the circulatory system; Z79.82 Long term (current) use of aspirin; Z79.51 Long term (current) use of inhaled steroids; Z79.899 Other long term (current) drug therapy; Z88.1 Allergy status to other antibiotic agents; Z91.030 Bee allergy status; Z91.02 Food additives allergy status; Z91.040 Latex allergy status; Z88.5 Allergy status to narcotic agent; Z88.0 Allergy status to penicillin; Z88.2 Allergy status to sulfonamides; Z88.8 Allergy status to other drugs, medicaments and biological substances; Z91.018 Allergy to other foods; Z91.048 Other nonmedicinal substance allergy status
CPT/HCPCS: 36415; 71010; 80048; 80053; 82550; 82553; 83036; 84484; 85025; 85027; 85610; 85730; 93005; 94640; 94660; 94760; 96374; 99291

== ENCOUNTER → 2017-02-24 | Outpatient (CLI) | payer MEDICARE ==
--- NOTE | 2017-02-24 13:33 | XR ---
EXAMINATION TYPE: XR shoulder complete LT DATE OF EXAM: 02/24/2017 CLINICAL HISTORY: Fall injury today with pain. TECHNIQUE: Three views of the left shoulder are obtained. COMPARISON: None. FINDINGS: Osseous structures are demineralized. There is no acute fracture/dislocation evident in the left shoulder. The acromioclavicular and glenohumeral joint spaces appear within normal limits. Th e visualized ribs are intact and unremarkable. IMPRESSION: There is no acute fracture or dislocation in the left shoulder.
== END | disposition home or self-care (01) ==
LOC: RADXRMAIN 12:37
PROVIDERS: ATTEND Family Medicine
DX: M25.512 Pain in left shoulder (principal)

== ENCOUNTER → 2017-03-11 | Outpatient (CLI) | payer MEDICARE ==
--- NOTE | 2017-03-11 16:41 | NM ---
EXAMINATION TYPE: NM hepatobiliary w EF DATE OF EXAM: 03/11/2017 COMPARISON: NONE HISTORY: Right upper quadrant pain TECHNIQUE: After the intravenous administration of 5.3 mCi Tc 99m Mebrofenin hepatobiliary scintigrap hy is performed. Immediate images post injection. FINDINGS: There is satisfactory initial accumulation of tracer by the liver. The gallbladder is visualized wit hin 42 minutes. The small bowel activity is noted within 24 minutes. At one hour 8 ounces of oral e nsure plus is given to mimic CCK and gallbladder ejection fraction is calculated at 80 %, in the norm al range. Therefore there is no scintigraphic evidence of cystic or common bile duct obstruction to suggest acute cholecystitis or gallbladder dyskinesia. IMPRESSION: Exam is within normal limits.
== END | disposition home or self-care (01) ==
LOC: RADNMMAIN 13:10
PROVIDERS: ATTEND Family Medicine
DX: K21.9 Gastro-esophageal reflux disease without esophagitis (principal)
CPT/HCPCS: 78226; A9537

== ENCOUNTER → 2017-08-20 | Outpatient (CLI) | payer MEDICARE ==
--- NOTE | 2017-08-20 12:09 | XR ---
EXAMINATION TYPE: XR chest 2V DATE OF EXAM: 08/20/2017 COMPARISON: NONE INDICATION: COPD, short of breath TECHNIQUE: Frontal and lateral views of the chest are obtained. FINDINGS: The heart size is normal. The pulmonary vasculature is normal. The lungs are clear. There is hyperinflation flattened diaphragms compatible COPD. Findings are stab le over the interval. Note is made of a stent within the region of the aorta upper abdomen. IMPRESSION: 1. No acute pulmonary process. 2. COPD
== END | disposition home or self-care (01) ==
LOC: RADXRMAIN 11:52
PROVIDERS: ATTEND Family Medicine
DX: J44.9 Chronic obstructive pulmonary disease, unspecified (principal)
CPT/HCPCS: 71046

== ENCOUNTER 2017-08-26 14:41 | Inpatient (IN) | payer MEDICARE ==
[2017-08-26] MEDS ORDERED: PNEUMONIA PROTOCOL UTILIZED 1 EACH MISC PO PRN (15:11)
[2017-08-26] MEDS ORDERED: IPRATROPIUM-ALBUTEROL 3 ML NEB INHALATION STA (15:11)
[2017-08-26] MEDS ORDERED: SODIUM CHLORIDE 0.9% 1,000 ML IV STA (15:11)
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
[2017-08-26] MEDS ORDERED: cefTRIAXone IN SWFI 1,000 MG/10 ML SYRINGE IVP STA (15:19)
[2017-08-26] MEDS ORDERED: AZITHROMYCIN 500 MG in SODIUM CHLORIDE 0.9% 250 ML IVPB STA (15:19)
[2017-08-26 15:44] LABS: Anisocytosis Moderate; Basophils % (A) 0 %; Eosinophils # (A) 0.8 k/uL (0-0.7); Eosinophils % (A) 10 %; HGB 10.5 gm/dL (11.4-16.0); Hypochromasia Marked; Lymphocytes # (A) 1.6 k/uL (1.0-4.8); Lymphocytes % (A) 21 %; MCH 26.1 pg (25.0-35.0); MCHC 30.1 g/dL (31.0-37.0); MCV 86.8 fL (80.0-100.0); Macrocytosis Slight; Monocytes # (A) 0.3 k/uL (0-1.0); Monocytes % (A) 4 %; Neutrophils % (A) 64 %; Platelet Count 175 k/uL (150-450); RBC 4.03 m/uL (3.80-5.40); RDW 23.4 % (11.5-15.5); WBC 7.8 k/uL (3.8-10.6)
[2017-08-26 15:47] LABS: INR 1.1 (<1.2); Partial Thromboplastin Time 22.6 sec (22.0-30.0); Prothrombin Time 10.4 sec (9.0-12.0)
[2017-08-26 15:48] LABS: Albumin 4.6 g/dL (3.5-5.0); Calcium 9.6 mg/dL (8.4-10.2); Magnesium 1.9 mg/dL (1.6-2.3); Potassium 4.2 mmol/L (3.5-5.1); Total Bilirubin 0.3 mg/dL (0.2-1.3); Total Protein 7.6 g/dL (6.3-8.2)
[2017-08-26 15:55] LABS: Creatine Kinase 75 U/L (30-135)
[2017-08-26 16:08] LABS: Creatine Kinase MB 2.2 ng/mL (0.0-2.4); Troponin I <0.012 ng/mL (0.000-0.034)
--- NOTE | 2017-08-26 16:33 | XR ---
EXAMINATION TYPE: XR chest 2V DATE OF EXAM: 08/26/2017 COMPARISON: 08/20/2017 INDICATION: Difficulty in breathing TECHNIQUE: Frontal and lateral views of the chest are obtained. FINDINGS: The heart size is normal. The pulmonary vasculature is normal. The lungs are clear. There is an increased AP dimension compatible with the patient's reported COPD. IMPRESSION: 1. No acute pulmonary process. 2. COPD
[2017-08-26] MEDS ORDERED: NITROGLYCERIN SL TABS 0.4 MG TAB SUBLINGUAL PRN (17:31)
[2017-08-26] MEDS ORDERED: ALBUTEROL NEBULIZED 2.5 MG/3 ML INHALATION PRN (17:31)
[2017-08-26] MEDS: NICOTINE 14MG/24HR PATCH TRANSDERM SCH (18:16)
[2017-08-26] MEDS: BUTALB/APAP/CAFF 50-325-40MG TAB PO PRN (19:37)
[2017-08-26] MEDS ORDERED: NON-FORMULARY DRUG (Tiotropium 18 Mcg/Puff 1 CAP) INHALATION SCH (20:00)
[2017-08-26] MEDS ORDERED: IPRATROPIUM-ALBUTEROL 3 ML NEB INHALATION SCH (20:00)
[2017-08-26] MEDS: IPRATROPIUM-ALBUTEROL 3 ML NEB INHALATION SCH (21:03)
[2017-08-26] MEDS: DULoxetine HCL 60 MG CAPSULE.DR PO SCH (21:11)
[2017-08-26] MEDS: cycloSPORINE 0.05% OPHTH 0.4 ML DROPERETTE BOTH EYES SCH (21:11)
[2017-08-26] MEDS: CALCIUM CARBONATE 500 MG CHEWABLE PO SCH (21:11)
[2017-08-26] MEDS: ATENOLOL 12.5 MG TAB PO SCH (21:11)
[2017-08-26] MEDS: SUCRALFATE 1 GM TAB PO SCH (21:12)
[2017-08-26] MEDS: TOPIRAMATE 25 MG TAB PO SCH (21:12)
[2017-08-26] MEDS: MELATONIN 5 MG TABLET PO SCH (21:12)
[2017-08-26] MEDS: PRAMIPEXOLE 0.125 MG TAB PO SCH (21:12)
[2017-08-27] MEDS: ALPRAZolam 0.5 MG TAB PO PRN ×2 (04:48→14:54)
[2017-08-27] MEDS: BUTALB/APAP/CAFF 50-325-40MG TAB PO PRN (04:48)
--- NOTE | 2017-08-27 08:02 | XR ---
EXAMINATION TYPE: XR chest 2V DATE OF EXAM: 08/27/2017 COMPARISON: Chest x-ray from yesterday and older studies. CTA chest July 18, 2017. HISTORY: History of COPD with cough. TECHNIQUE: Frontal and lateral views of the chest are obtained. FINDINGS: Background chronic emphysematous change with biapical pleural/parenchymal scarring is rede monstrated. There is no focal air space opacity, pleural effusion, or pneumothorax seen. The cardiac silhouette size is stable and upper limits of normal. Anterior fusion plate lower cervical spine is partially imaged. There is metallic abdominal aortic stent graft partially imaged. IMPRESSION: Chronic emphysematous change without acute pulmonary process. No significant change from one day earlier.
[2017-08-27] MEDS: IPRATROPIUM-ALBUTEROL 3 ML NEB INHALATION SCH ×4 (08:31→20:11)
[2017-08-27] MEDS: cycloSPORINE 0.05% OPHTH 0.4 ML DROPERETTE BOTH EYES SCH ×2 (08:32→21:55)
[2017-08-27] MEDS: TOPIRAMATE 25 MG TAB PO SCH ×2 (08:33→21:55)
[2017-08-27] MEDS: CALCIUM CARBONATE 500 MG CHEWABLE PO SCH ×2 (08:34→21:54)
[2017-08-27] MEDS: ENOXAPARIN 40 MG/0.4 ML SYRINGE SQ SCH (08:34)
[2017-08-27] MEDS: CHOLECALCIFEROL 1,000 UNIT TAB PO SCH (08:34)
[2017-08-27] MEDS: SUCRALFATE 1 GM TAB PO SCH ×4 (08:34→21:55)
[2017-08-27] MEDS: DULoxetine HCL 30 MG CAPSULE.DR PO SCH (08:34)
[2017-08-27] MEDS: DEXILANT 60MG PO SCH (08:51)
[2017-08-27] MEDS ORDERED: AZITHROMYCIN 500 MG in SODIUM CHLORIDE 0.9% 250 ML IVPB SCH (09:00)
[2017-08-27 11:26] VITALS: BMI 20.2
[2017-08-27] MEDS: cefTRIAXone IN SWFI 1,000 MG/10 ML SYRINGE IVP SCH (11:43)
[2017-08-27] MEDS: methylPREDNISolone SOD SUCCI 40 MG/ML 1 ML VIAL IV SCH ×3 (11:43→23:18)
[2017-08-27 11:57] LABS: Glucose,Whole Blood 71 mg/dL (75-99)
[2017-08-27] MEDS: INSULIN ASPART 100 UNIT/ML 1 ML 10 ML VIAL SQ SCH ×3 (12:17→21:56)
--- NOTE | 2017-08-27 14:17 | P.HPIM ---
History of Present Illness H&P Date: 08/27/17 Chief Complaint: Shortness of breath and wheezing This is a 66-year-old female one of Dr. Colbert patient with past medical history of hepatitis C post the Harvoni therapy with history of CAD COPD asthma and previous history of DVT along with Takosubu syndrome who was hospitalized at [facility] in April 2016 for GI bleed with slight drop in hemoglobin was treated and did well ended up being discharged home. In January 2017, she had an admission for acute COPD exacerbation and acute bronchitis. He said hospitalization July 18 for non-ST elevated myocardial infarction status post heart cath and patent stent in the RCA with heavily calcified right and left coronary systems and recommendations to maximize medical treatment. Patient states that she has been on antibiotics in the outpatient setting as well as oxygen [id number] at 2 L nasal cannula versus at nighttime only. She does state that she stopped smoking in July on a nicotine patch. She is complaining of wheezing and clear thick sputum production. She states she is not getting better with antibiotics. She does complain of leg cramping when she stands up and has to walk to get the cramping to improve. She denies any edema. 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 She states that she was post have an ultrasound done of the area but she was late for appointment and it was canceled. She presents to [facility] emergency center. No leukocytosis, hemoglobin 10.5, afebrile. EKG was a sinus rhythm. Chest x-ray shows chronic emphysematous changes without acute pulmonary process. A dime or was elevated at 6 and on previous admission D-dimer was elevated at 5 and she underwent a CTA of the chest that was negative for pulmonary embolism. There is moderately severe pulmonary emphysema, pulmonary interstitial fibrosis, pleural and pulmonary scarring and calcification at the lung apices. No significant change from prior exam. Atheromatous aorta. Patient was admitted to the [facility] floor and started on nebulizer treatments, azithromycin, ceftriaxone, Solu- Medrol and consult with pulmonary medicine. Review of Systems All systems: negative Constitutional: Denies chills, Denies fever Eyes: denies blurred vision, denies pain Ears, nose, mouth and throat: Denies dental pain, Denies headache, Denies mouth pain, Denies sore throat Cardiovascular: Denies chest pain, Denies shortness of breath Respiratory: Reports cough, Reports cough with sputum, Reports dyspnea, Reports home oxygen, Denies excessive sputum, Denies hemoptysis Gastrointestinal: Denies abdominal pain, Denies diarrhea, Denies nausea, Denies vomiting Genitourinary: Denies dysuria, Denies hematuria Musculoskeletal: Denies myalgias Integumentary: Denies pruritus, Denies rash Neurological: Denies numbness, Denies weakness Psychiatric: Denies anxiety, Denies depression Endocrine: Denies fatigue, Denies weight change Past Medical History Past Medical History: Asthma, Chest Pain / Angina, COPD, Deep Vein Thrombosis ( DVT), GERD/Reflux, Hypertension, Liver Disease, Myocardial Infarction ([place]), Musculoskeletal Disorder, Pneumonia, Sleep Apnea/CPAP/BIPAP, Vascular Disorder Additional Past Medical History / Comment(s): 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 amenia-iron infusons x2 Last Myocardial Infarction Date:: 06/2011 History of Any Multi-Drug Resistant Organisms: None Reported Past Surgical History: Bladder Surgery, Heart Catheterization With Stent, Hysterectomy, Orthopedic Surgery Additional Past Surgical History / Comment(s): HEART STENT 2010. AAA STENT 2005. VARICOSE VEIN STRIPPING R leg. EXP LAP. LIVER/BX, HAD RT FOOT SURGERY D/ T SALMONELLA INFECTION. R SHOULDER SCOPE. COLONOSCOPY-NORMAL. BLADDER SUSPENSIONS. Past Anesthesia/Blood Transfusion Reactions: No Reported Reaction Date of Last Stent Placement:: 2010 Smoking Status: Current every day smoker Additional Past Alcohol Use History / Comment(s): She was a smoker starting in 1956 in half to one pack per day and date she quit in June but on last admission in July she was smoking half a pack per day. No illicit drug use , and no alcohol abuse. - Past Family History Brother(s) Family Medical History: Coronary Artery Disease (CAD), Myocardial Infarction ([place] ) Father Additional Family Medical History / Comment(s): FROM CIRRHOSIS OF THE LIVER Mother Family Medical History: COPD Additional Family Medical History / Comment(s): FROM AAA, HAD HX TB Medications and Allergies Home Medications Medication Instructions Recorded Confirmed Type RX: ALPRAZolam [Xanax] 1 mg PO TID 12/27/13 08/26/17 History RX: Albuterol Sulfate [Ventolin 2 puff INHALATION RT-TID PRN 12/27/13 08/26/17 History HFA] RX: Atenolol [Tenormin] 12.5 mg PO HS 12/27/13 08/26/17 History RX: Dexlansoprazole [Dexilant] 60 mg PO DAILY 12/27/13 08/26/17 History RX: Sucralfate [Carafate] 1 gm PO ACHS 12/27/13 08/26/17 History RX: cycloSPORINE [Restasis] 2 drop BOTH EYES BID 12/27/13 08/26/17 History RX: Pramipexole [Mirapex] 0.125 mg PO HS 09/12/14 08/26/17 History RX: Tiotropium 18 Mcg/Puff 1 cap INHALATION RT-HS 09/12/14 08/26/17 History [Spiriva] RX: Topiramate [Topamax] 50 mg PO BID 05/03/15 08/26/17 History RX: Butalb/APAP/Caff 50-325-40Mg 0.5 tab PO Q4H PRN 02/13/17 08/26/17 History [Fioricet 50-325-40] RX: Cholecalciferol [Vitamin D3] 1,000 unit PO DAILY 02/13/17 08/26/17 History RX: Ipratropium-Albuterol Nebulize 3 ml INHALATION RT-QID #120 neb 02/16/1705/05 Rx [Duoneb 0.5 mg-3 mg/3 ml Soln] RX: Melatonin 5 mg PO HS #30 tablet 02/16/17 08/26/17 Rx RX: DULoxetine HCL [Cymbalta] 30 mg PO DAILY 07/18/17 08/26/17 History RX: DULoxetine HCL [Cymbalta] 60 mg PO HS 07/18/17 08/26/17 History RX: Nicotine 14Mg/24Hr Patch 1 patch TRANSDERM Q24H #30 patch 07/22/17 08/26/17 Rx [Habitrol] RX: Nitroglycerin Sl Tabs 0.4 mg SUBLINGUAL Q5M PRN #25 tab 07/22/17 08/26/17 Rx [Nitrostat] Ciprofloxacin HCl [Cipro] 500 mg PO Q12HR 08/20/17 08/26/17 History Calcium Carbonate [Calcium] 600 mg PO BID 08/25/17 08/26/17 History Allergies Allergy/AdvReac Type Severity Reaction Status Date / Time naproxen sodium [From Aleve] Allergy Severe Anaphylaxis Verified 08/26/17 15:08 adhesive Allergy Rash/Hives Verified 08/26/17 15:08 cinnamon [Cinnamon] Allergy Dyspnea Verified 08/26/17 15:08 clindamycin Allergy Anaphylaxis Verified 08/26/17 15:08 codeine Allergy Nausea & Verified 08/26/17 15:08 Vomiting gentamicin [Gentamicin] Allergy SWELLING Verified 08/26/17 15:08 OF FACE W/ EYE DROPS paola Allergy Dyspnea Verified 08/26/17 15:21 Iodinated Contrast- Oral and Allergy VAGINAL Verified 08/29/17 09:42 IV Dye BLEEDING [Iodinated Contrast Media - AFTER IV Dye] latex Allergy Rash/Hives Verified 08/26/17 15:08 levothyroxine sodium Allergy Unknown Verified 08/26/17 15:08 [From Synthroid] montelukast sodium Allergy Wheezing Verified 08/26/17 15:08 [From Singulair] pantoprazole sodium Allergy Abdominal Verified 08/26/17 15:08 [From Protonix] Pain Penicillins Allergy Rash/Hives Verified 08/26/17 15:08 red dye Allergy Abdominal Verified 08/26/17 15:08 Pain Sulfa (Sulfonamide Allergy Swelling Verified 08/26/17 15:08 Antibiotics) IN MOUTH sulfamethoxazole Allergy swelling Verified 08/26/17 15:08 [From Bactrim] tongue trimethoprim [From Bactrim] Allergy Swelling Verified 08/26/17 15:08 venom-honey bee Allergy Dyspnea Verified 08/26/17 15:08 [bee venom (honey bee)] BANDAIDS Allergy Rash/Hives Uncoded 08/26/17 14:49 tomatoes AdvReac Abdominal Uncoded 08/26/17 18:17 Pain Physical Exam Vitals: Vital Signs Temp Pulse Pulse Resp BP BP Pulse Ox 08/27/17 08:49 88 08/27/17 08:31 88 08/27/17 08:00 71 18 08/27/17 07:00 98.2 F 71 18 146/67 98 08/26/17 21:41 98.0 F 82 16 136/78 94 L 08/26/17 21:18 87 08/26/17 21:09 82 136/78 08/26/17 21:03 87 08/26/17 17:27 16 08/26/17 16:37 98.8 F 86 16 150/68 97 08/26/17 16:13 89 20 166/74 97 08/26/17 15:41 90 18 08/26/17 15:31 89 18 08/26/17 14:45 96.8 F L 105 H 18 141/60 92 L Intake and Output 08/26/17 08/27/17 08/27/17 22:59 06:59 14:59 Intake Total 900 600 Balance 900 600 Intake: Intake, IV Titration 800 500 Amount Sodium Chloride 0.9% 1, 800 500 000 ml @ 100 mls/hr IV . Q10H STA Rx#:[id number] Oral 100 100 Other: Voiding Method Toilet Toilet Toilet Diaper Diaper Diaper # Voids 3 General appearance: mild distress, thin - EENT Eyes: anicteric sclerae, EOMI, PERRLA, no ptosis, no scleral icterus, normal appearance ENT: hard of hearing, NA/AT, normal oropharynx, no thrush Ears: bilateral: normal - Neck Neck: no lymphadenopathy, normal ROM, no rigidity, no stridor, no thyromegaly Carotids: bilateral: upstroke delayed Thyroid: bilateral: normal size - Respiratory Respiratory: bilateral: diminished, prolonged expiration, negative: dullness, rales, rhonchi, wheezing, - Cardiovascular Rhythm: regular Heart sounds: normal: S1, S2 Abnormal Heart Sounds: systolic murmur, no S3 Gallop, no S4 Gallop, no click - Gastrointestinal General gastrointestinal: normal bowel sounds, soft, no splenomegaly, no tenderness, no umbilical hernia, no ventral hernia - Integumentary Integumentary: normal, normal turgor - Neurologic Neurologic: CNII-XII intact - Musculoskeletal Musculoskeletal: generalized weakness, strength equal bilaterally - Psychiatric Psychiatric: A&O x's 3, appropriate affect, intact judgment & insight Results CBC & Chem 7: 09/01/17 07:02 09/01/17 07:02 Labs: Abnormal Lab Results - Last 24 Hours (Table) 08/26/17 08/26/17 Range/Units 15:20 15:20 Hgb 10.5 L (11.4-16.0) gm/dL MCHC 30.1 L (31.0-37.0) g/dL RDW 23.4 H (11.5-15.5) % Eosinophils # 0.8 H (0-0.7) k/uL Chloride 109 H (98-107) mmol/L BUN 19 H (7-17) mg/dL Creatinine 1.10 H (0.52-1.04) mg/dL Thrombosis Risk Factor Assmnt - DVT/VTE Prophylaxis DVT/VTE Prophylaxis: Pharmacologic Prophylaxis ordered - Choose All That Apply Any of the Below Risk Factors Present?: Yes Each Factor Represents 1 point: Abnormal pulmonary function (COPD), Serious lung disease incl. pneumonia (< 1month) Other Risk Factors: Yes Each Risk Factor Represents 2 Points: Age 61-74 years Each Risk Factor Represents 3 Points: History of DVT/PE Other congenital or acquired thrombophilia - If yes, enter type in comment: No Thrombosis Risk Factor Assessment Total Risk Factor Score: 7 Thrombosis Risk Factor Assessment Level: High Risk Assessment and Plan Plan: 1. Acute COPD exacerbation and acute tracheobronchitis with chronic hypoxic respiratory failure. Continue azithromycin and ceftriaxone, DuoNeb treatments 4 times daily and albuterol as needed, Solu-Medrol 40 mg IV every 6 hours. 2. Recent non-ST elevated myocardial infarction status post heart catheterization finding patent stent in the RCA and heavily calcified right and left coronary systems in July 2017. Atenolol, aspirin 81 mg orally once every day, Lipitor 40 mg. Note: patient has not been taking aspirin or Lipitor at home. 3. Peripheral vascular disease. Arterial studies of the lower extremities. 4. Chronic back pain. CAT scan of the lumbar spine ordered. 5. Chronic anemia of chronic disease. 6. PUD. We will start the patient on Carafate 1 g orally 4 times every day. 7. Hep C S/P Harvoni therapy. 8. Hyperlipidemia. Lipitor. 9. Abdominal aortic aneurysm S/P endovascular stent. 10. Chronic tobacco use and dependence. Smoking cessation and counseling an increased risk of CAD, CVA, and malignancy. Patient on nicotine patch. 11. Migraine Headache. Continue Topamax 50 mg orally twice every day as well as Fioricet half a pill every 4 hours as needed. 12. Hypertension and hypertensive cardiovascular disease. Continue atenolol 12.5 mg orally once every day. 13. Restless leg syndrome. Continue Mirapex 0.125 mg orally at bedtime. 14. Obstructive sleep apnea. Stable. 15. Depression, recurrent. Continue Cymbalta 30 mg in the morning and 60 minute gram of the time. 16. Overactive bladder. Continue oxybutynin 5 mg orally twice every day. 17. DVT prophylaxis. Heparin subcu. 18. GI prophylaxis. Carafate. Estimated length of stay is 2 midnights. Discharge plan: Return home Impression and plan of care have been directed as dictated by the signing physician. Coby Joaquin nurse practitioner acting as scribe for signing physician.
--- NOTE | 2017-08-27 14:20 | CT ---
EXAMINATION TYPE: CT lumbar spine wo con DATE OF EXAM: 08/27/2017 2:02 PM COMPARISON: CT abdomen November 19, 2016 HISTORY: Neurogenic claudication right side CT DLP: 392.60 mGycm Automated exposure control for dose reduction was used. Unenhanced CT of the lumbar spine was performed. Bone and soft tissue window settings are submitted as well as coronal and sagittal reconstructions. 5 lumbar-type vertebra are redemonstrated. Lumbar spine shows satisfactory alignment without evidence of acute fracture or dislocation. Vertebral body heights and disc space heights are fairly well-main tained. Posterior disc herniation L2-L3 level is redemonstrated on sagittal image 31. Mild multilevel anterior spurring is present. Multilevel calcified discs are redemonstrated. Axial images at T12-L1 and L1-L2 levels are felt to appear within normal limits. Axial images at L2-L3 level redemonstrate broad-based posterior disc protrusion mildly effacing anter ior thecal sac on axial image 39, bilateral neural foramina are patent. Axial images at L3-L4 level redemonstrated mild to moderate right greater than left facet degenerativ e changes and ligament flavum hypertrophy bilaterally with some effacement the posterior lateral thec al sac. There is fairly moderate broad-based posterior disc protrusion mildly effacing anterior theca l sac. There is mild bilateral anterior inferior neural foraminal narrowing at this level identified. Axial images at L4-L5 level redemonstrate mild to moderate facet degenerative changes bilaterally. Th ere is broad-based posterior disc protrusion seen. Spinal canal is fairly well preserved. There is mi ld to moderate right greater than left anterior inferior neural foraminal narrowing redemonstrated. Axial images at L5-S1 level show mild to moderate left greater than right facet degenerative changes. Spinal canal is preserved. Bilateral neural foramina are patent. There is aortobiiliac stent graft redemonstrated through aneurysm of abdominal aorta. There is emphys ematous change in visualized lung bases redemonstrated. Some fat replaced atrophy of pancreas is agai n seen. IMPRESSION: Multilevel degenerative changes in lumbar spine as detailed above, no significant change from CT abdomen study November 19, 2016. No obvious large disc herniation is seen to account for patient' s right-sided radiculopathy type symptoms.
--- NOTE | 2017-08-27 14:21 | US ---
EXAMINATION TYPE: US venous doppler duplex LE RT DATE OF EXAM: 08/27/2017 12:54 PM COMPARISON: NONE CLINICAL HISTORY: dvt. right leg pain SIDE PERFORMED: Right TECHNIQUE: The lower extremity deep venous system is examined utilizing real time linear array sonog jamin with graded compression, doppler sonography and color-flow sonography. VESSELS IMAGED: External Iliac Vein (EIV) Common Femoral Vein Deep Femoral Vein Greater Saphenous Vein * Femoral Vein Popliteal Vein Proximal Calf Veins (* superficial vessels) Right Leg: Negative for DVT Grayscale, color doppler, spectral doppler imaging performed of the deep veins of the right lower ext remity. There is normal flow, compressibility, vascular waveforms. IMPRESSION: No ultrasound evidence for acute DVT in the right lower extremity.
--- NOTE | 2017-08-27 16:30 | P.CNPUL ---
History of Present Illness Consult date: 08/27/17 Requesting physician: Gloria Hernandez Reason for consult: dyspnea, cough, COPD Chief complaint: Cough, wheezing, chills, shortness of breath History of present illness: Nafisa is a 67-year-old female patient who follows with Dr. Petersen for her history of COPD, presented to the ER on 08/26/2017 at 1400 with complaints of shortness of breath, cough, wheezing, chills. She states she has been sick since June, was recently hospitalized in July for non-ST elevated NE. She had a heart catheterization on 07/21/2017, which revealed heavily calcified right and left coronary systems, patent stent in the RCA, mild disease involving the left circumflex, and mild disease in the proximal and mid LAD. Recommendation was made to maximize medical treatment. Since then patient had been on outpatient course of antibiotics, and oxygen at 2 L per nasal cannula. She has stopped smoking in July, is currently on a nicotine patch. She reports no improvement with antibiotics, complaining of ongoing wheezing, and production of thick clear sputum. On admission there was no evidence of leukocytosis, patient was afebrile. EKG showed normal sinus rhythm. Chest x- ray showed chronic emphysematous changes without any evidence of acute pulmonary process. D-dimer on admission was found to be elevated at 6, ultrasound Doppler of the right leg was negative for DVT. She had a CTA chest done in July 2017 which showed no evidence of pulmonary embolism. Patient was started on empiric antibiotics, and Rocephin, Zithromax, IV steroids, nebulized treatments, and admitted to the hospital for further treatment. Review of Systems All systems: negative Constitutional: Denies chills, Denies fever Eyes: denies blurred vision, denies pain Ears, nose, mouth and throat: Denies headache, Denies sore throat Cardiovascular: Denies chest pain, Denies shortness of breath Respiratory: Denies cough Gastrointestinal: Denies abdominal pain, Denies diarrhea, Denies nausea, Denies vomiting Genitourinary: Denies dysuria, Denies hematuria Musculoskeletal: Denies myalgias Integumentary: Denies pruritus, Denies rash Neurological: Denies numbness, Denies weakness Psychiatric: Denies anxiety, Denies depression Endocrine: Denies fatigue, Denies weight change Past Medical History Past Medical History: Asthma, Chest Pain / Angina, COPD, Deep Vein Thrombosis ( DVT), GERD/Reflux, Hypertension, Liver Disease, Myocardial Infarction (NE), Musculoskeletal Disorder, Pneumonia, Sleep Apnea/CPAP/BIPAP, Vascular Disorder Additional Past Medical History / Comment(s): 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 amenia-iron infusons x2 Last Myocardial Infarction Date:: 06/2011 History of Any Multi-Drug Resistant Organisms: None Reported Past Surgical History: Bladder Surgery, Heart Catheterization With Stent, Hysterectomy, Orthopedic Surgery Additional Past Surgical History / Comment(s): HEART STENT 2010. AAA STENT 2005. VARICOSE VEIN STRIPPING R leg. EXP LAP. LIVER/BX, HAD RT FOOT SURGERY D/ T SALMONELLA INFECTION. R SHOULDER SCOPE. COLONOSCOPY-NORMAL. BLADDER SUSPENSIONS. Past Anesthesia/Blood Transfusion Reactions: No Reported Reaction Date of Last Stent Placement:: 2010 Smoking Status: Current every day smoker Additional Past Alcohol Use History / Comment(s): She was a smoker starting in 1955 in half to one pack per day and date she quit in June but on last admission in July she was smoking half a pack per day. No illicit drug use , and no alcohol abuse. - Past Family History Brother(s) Family Medical History: Coronary Artery Disease (CAD), Myocardial Infarction (NE ) Father Additional Family Medical History / Comment(s): FROM CIRRHOSIS OF THE LIVER Mother Family Medical History: COPD Additional Family Medical History / Comment(s): FROM AAA, HAD HX TB Medications and Allergies Home Medications Medication Instructions Recorded Confirmed Type ALPRAZolam [Xanax] 1 mg PO TID 12/27/13 08/26/17 History Albuterol Sulfate [Ventolin HFA] 2 puff INHALATION RT-TID PRN 12/27/13 08/26/17 History Atenolol [Tenormin] 12.5 mg PO HS 12/27/13 08/26/17 History Dexlansoprazole [Dexilant] 60 mg PO DAILY 12/27/13 08/26/17 History Sucralfate [Carafate] 1 gm PO ACHS 12/27/13 08/26/17 History cycloSPORINE [Restasis] 2 drop BOTH EYES BID 12/27/13 08/26/17 History Pramipexole [Mirapex] 0.125 mg PO HS 09/12/14 08/26/17 History Tiotropium 18 Mcg/Puff [Spiriva] 1 cap INHALATION RT-HS 09/12/14 08/26/17 History Topiramate [Topamax] 50 mg PO BID 05/03/15 08/26/17 History Butalb/APAP/Caff 50-325-40Mg 0.5 tab PO Q4H PRN 02/13/17 08/26/17 History [Fioricet 50-325-40] Cholecalciferol [Vitamin D3] 1,000 unit PO DAILY 02/13/17 08/26/17 History Ipratropium-Albuterol Nebulize 3 ml INHALATION RT-QID #120 neb 02/16/17 Rx [Duoneb 0.5 mg-3 mg/3 ml Soln] Melatonin 5 mg PO HS #30 tablet 02/16/17 08/26/17 Rx DULoxetine HCL [Cymbalta] 30 mg PO DAILY 07/18/17 08/26/17 History DULoxetine HCL [Cymbalta] 60 mg PO HS 07/18/17 08/26/17 History Nicotine 14Mg/24Hr Patch [Habitrol] 1 patch TRANSDERM Q24H #30 patch 07/22/17 Rx Nitroglycerin Sl Tabs [Nitrostat] 0.4 mg SUBLINGUAL Q5M PRN #25 tab 07/22/1705/05 Rx Ciprofloxacin HCl [Cipro] 500 mg PO Q12HR 08/20/17 08/26/17 History Calcium Carbonate [Calcium] 600 mg PO BID 08/25/17 08/26/17 History Allergies Allergy/AdvReac Type Severity Reaction Status Date / Time naproxen sodium [From Aleve] Allergy Severe Anaphylaxis Verified 08/26/17 15:08 adhesive Allergy Rash/Hives Verified 08/26/17 15:08 cinnamon [Cinnamon] Allergy Dyspnea Verified 08/26/17 15:08 clindamycin Allergy Anaphylaxis Verified 08/26/17 15:08 codeine Allergy Nausea & Verified 08/26/17 15:08 Vomiting gentamicin [Gentamicin] Allergy SWELLING Verified 08/26/17 15:08 OF FACE W/ EYE DROPS paola Allergy Dyspnea Verified 08/26/17 15:21 Iodinated Contrast- Oral and Allergy VAGINAL Verified 08/26/17 15:08 IV Dye BLEEDING [Iodinated Contrast Media - AFTER IV Dye] latex Allergy Rash/Hives Verified 08/26/17 15:08 levothyroxine sodium Allergy Unknown Verified 08/26/17 15:08 [From Synthroid] montelukast sodium Allergy Wheezing Verified 08/26/17 15:08 [From Singulair] pantoprazole sodium Allergy Abdominal Verified 08/26/17 15:08 [From Protonix] Pain Penicillins Allergy Rash/Hives Verified 08/26/17 15:08 red dye Allergy Abdominal Verified 08/26/17 15:08 Pain Sulfa (Sulfonamide Allergy Swelling Verified 08/26/17 15:08 Antibiotics) IN MOUTH sulfamethoxazole Allergy swelling Verified 08/26/17 15:08 [From Bactrim] tongue trimethoprim [From Bactrim] Allergy Swelling Verified 08/26/17 15:08 venom-honey bee Allergy Dyspnea Verified 08/26/17 15:08 [bee venom (honey bee)] BANDAIDS Allergy Rash/Hives Uncoded 08/26/17 14:49 tomatoes AdvReac Abdominal Uncoded 08/26/17 18:17 Pain Physical Exam Vitals: Vital Signs Temp Pulse Pulse Resp BP BP Pulse Ox 08/27/17 15:00 98.4 F 84 18 133/55 90 L 08/27/17 12:28 92 08/27/17 12:13 92 08/27/17 08:49 88 08/27/17 08:31 88 08/27/17 08:00 71 18 08/27/17 07:00 98.2 F 71 18 146/67 98 08/26/17 21:41 98.0 F 82 16 136/78 94 L 08/26/17 21:18 87 08/26/17 21:09 82 136/78 08/26/17 21:03 87 08/26/17 17:27 16 08/26/17 16:37 98.8 F 86 16 150/68 97 08/26/17 16:13 89 20 166/74 97 Intake and Output 08/27/17 08/27/17 08/27/17 06:59 14:59 22:59 Intake Total 600 250 Balance 600 250 Intake: Intake, IV Titration 500 250 Amount Azithromycin 500 mg In 250 Sodium Chloride 0.9% 250 ml @ 125 mls/hr IVPB DAILY [facility] Rx#:[id number] Sodium Chloride 0.9% 1, 500 000 ml @ 100 mls/hr IV . Q10H [facility] Rx#:[id number] Oral 100 Other: Voiding Method Toilet Toilet Diaper Diaper # Voids 3 Weight 51.71 kg Patient Weight 08/28/17 06:59 Weight 51.71 kg GENERAL EXAM: Alert, active, comfortable in no apparent distress. HEAD: Normocephalic/atraumatic. EYES: Normal reaction of pupils, equal size. Conjunctiva pink, sclera white. NOSE: Clear with pink turbinates. THROAT: No erythema or exudates. NECK: No masses, no JVD, no thyroid enlargement, no adenopathy. CHEST: No chest wall deformity. Symmetrical expansion. LUNGS: Equal air entry with no crackles, wheeze, a few scattered rhonchi noted at the bases CVS: Regular rate and rhythm, normal S1 and S2, no gallops, no murmurs, no rubs ABDOMEN: Soft, nontender. No hepatosplenomegaly, normal bowel sounds, no guarding or rigidity. EXTREMITIES: No clubbing, no edema, no cyanosis, 2+ pulses and upper and lower extremities. MUSCULOSKELETAL: Muscle strength and tone normal. SPINE: No scoliosis or deformity SKIN: No rashes CENTRAL NERVOUS SYSTEM: Alert and oriented -3. No focal deficits, tone is normal in all 4 extremities. PSYCHIATRIC: Alert and oriented -3. Appropriate affect. Intact judgment and insight. Results - Laboratory Findings CBC and BMP: 08/26/17 15:20 08/26/17 15:20 PT/INR, D-dimer PT 10.4 sec (9.0-12.0) 08/26/17 15:20 INR 1.1 (<1.2) 08/26/17 15:20 D-Dimer 6.09 mg/L FEU (<0.60) H 08/27/17 10:34 Abnormal lab findings: Abnormal Labs 08/26/17 08/26/17 08/27/17 15:20 15:20 10:34 Hgb 10.5 L MCHC 30.1 L RDW 23.4 H Eosinophils # 0.8 H D-Dimer 6.09 H Chloride 109 H BUN 19 H Creatinine 1.10 H POC Glucose (mg/dL) 08/27/17 11:53 Hgb MCHC RDW Eosinophils # D-Dimer Chloride BUN Creatinine POC Glucose (mg/dL) 71 L - Diagnostic Findings Chest x-ray: report reviewed U/S of Legs: report reviewed Assessment and Plan Plan: Assessment: #1. Acute COPD exacerbation with tracheobronchitis, chest x-ray and 08/27/2017 shows chronic emphysematous changes, without acute pulmonary process #2. Chronic hypoxic respiratory failure, secondary to COPD #3. Recent non-ST elevated NE in July 2017 #4. Coronary artery disease #5. Nicotine dependence, currently in remission #6. Chronic anemia of chronic disease #7. Chronic hepatitis C, status post Harvoni therapy #8. Hyperlipidemia #9. History of abdominal aortic aneurysm with repair #10. Hypertension Plan: Chest x-ray was reviewed, shows no acute pulmonary process. Agree with present medical treatment, agree with empiric antibiotics, IV steroids, DuoNeb and Pulmicort nebulized treatments. Anticipate improvement. If she continues to improve, may be considered for discharge home tomorrow. I performed a history & physical examination of the patient and discussed their management with my nurse practitioner, Margaret Min. I reviewed the nurse practitioner's note and agree with the documented findings and plan of care. Lung sounds are positive for a few scattered rhonchi. The findings and the impression was discussed with the patient. I attest to the documentation by the nurse practitioner. Time with Patient: Greater than 30
[2017-08-27 16:38] LABS: Glucose,Whole Blood 182 mg/dL (75-99)
[2017-08-27] MEDS: NICOTINE 14MG/24HR PATCH TRANSDERM SCH (17:32)
[2017-08-27 19:45] LABS: Hemoglobin A1C 5.2 % (4.0-6.0)
[2017-08-27 20:06] LABS: Glucose,Whole Blood 203 mg/dL (75-99)
[2017-08-27] MEDS ORDERED: ATORVASTATIN 40 MG TAB PO SCH (21:00)
[2017-08-27] MEDS: DULoxetine HCL 60 MG CAPSULE.DR PO SCH (21:54)
[2017-08-27] MEDS: ATENOLOL 12.5 MG TAB PO SCH (21:55)
[2017-08-27] MEDS: MELATONIN 5 MG TABLET PO SCH (21:55)
[2017-08-27] MEDS: PRAMIPEXOLE 0.125 MG TAB PO SCH (21:55)
[2017-08-27] MEDS: HEPARIN SODIUM,PORCINE 5,000 UNIT/ML 1 ML VIAL SQ SCH (21:56)
[2017-08-28] MEDS: methylPREDNISolone SOD SUCCI 40 MG/ML 1 ML VIAL IV SCH (05:50)
[2017-08-28] MEDS: BUTALB/APAP/CAFF 50-325-40MG TAB PO PRN ×2 (06:03→10:02)
[2017-08-28 07:18] LABS: Glucose,Whole Blood 142 mg/dL (75-99)
[2017-08-28] MEDS: IPRATROPIUM-ALBUTEROL 3 ML NEB INHALATION SCH ×4 (08:25→20:36)
[2017-08-28] MEDS: CALCIUM CARBONATE 500 MG CHEWABLE PO SCH ×2 (10:05→21:14)
[2017-08-28] MEDS: CHOLECALCIFEROL 1,000 UNIT TAB PO SCH (10:05)
[2017-08-28] MEDS: TOPIRAMATE 25 MG TAB PO SCH ×2 (10:05→21:14)
[2017-08-28] MEDS: AZITHROMYCIN 500 MG TAB PO SCH (10:05)
[2017-08-28] MEDS: HEPARIN SODIUM,PORCINE 5,000 UNIT/ML 1 ML VIAL SQ SCH ×2 (10:05→21:14)
[2017-08-28] MEDS: DULoxetine HCL 30 MG CAPSULE.DR PO SCH (10:06)
[2017-08-28] MEDS: ENOXAPARIN 40 MG/0.4 ML SYRINGE SQ SCH ×2 (10:06→10:08)
[2017-08-28] MEDS: INSULIN ASPART 100 UNIT/ML 1 ML 10 ML VIAL SQ SCH ×4 (10:08→20:49)
[2017-08-28] MEDS: SUCRALFATE 1 GM TAB PO SCH ×4 (10:08→21:14)
[2017-08-28] MEDS: cycloSPORINE 0.05% OPHTH 0.4 ML DROPERETTE BOTH EYES SCH ×2 (10:09→21:15)
[2017-08-28] MEDS: DEXILANT 60MG PO SCH (10:09)
[2017-08-28] MEDS: cefTRIAXone IN SWFI 1,000 MG/10 ML SYRINGE IVP SCH (10:09)
[2017-08-28] MEDS: ASPIRIN 81 MG PO SCH (10:09)
[2017-08-28] MEDS: ALPRAZolam 0.5 MG TAB PO PRN (11:28)
[2017-08-28 11:35] LABS: Glucose,Whole Blood 135 mg/dL (75-99)
--- NOTE | 2017-08-28 12:56 | P.PN ---
Subjective Progress Note Date: 08/28/17 This is a 66-year-old female one of Dr. Colbert patient with past medical history of hepatitis C post the Harvoni therapy with history of CAD COPD asthma and previous history of DVT along with Takosubu syndrome who was hospitalized at [facility] in April 2016 for GI bleed with slight drop in hemoglobin was treated and did well ended up being discharged home. In January 2017, she had an admission for acute COPD exacerbation and acute bronchitis. He said hospitalization July 18 for non-ST elevated myocardial infarction status post heart cath and stent in the RCA. Patient states that she has been on antibiotics in the outpatient setting as well as oxygen round- the-clock at 2 L nasal cannula versus at nighttime only. She does state that she stopped smoking in July on a nicotine patch. She is complaining of wheezing and clear thick sputum production. She states she is not getting better with antibiotics. She does complain of leg cramping when she stands up and has to walk to get the cramping to improve. She denies any edema. 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 She states that she was post have an ultrasound done of the area but she was late for appointment and it was canceled. She presents to [facility] emergency center. No leukocytosis, hemoglobin 10.5, afebrile. EKG was a sinus rhythm. Chest x-ray shows chronic emphysematous changes without acute pulmonary process. A dime or was elevated at 6 and on previous admission D-dimer was elevated at 5 and she underwent a CTA of the chest that was negative for pulmonary embolism. There is moderately severe pulmonary emphysema , pulmonary interstitial fibrosis, pleural and pulmonary scarring and calcification at the lung apices. No significant change from prior exam. Atheromatous aorta. Patient was admitted to the MedSurg floor and started on nebulizer treatments, azithromycin, ceftriaxone, Solu-Medrol and consult with pulmonary medicine. 08/28: Patient states that she is not sleeping. Trazodone added to be given at supper time. She is complaining of headache with no significant pain at the right yazidi. CRP and sed rate ordered. Solu-Medrol will be decreased and post exchange manager to prednisone in the morning. Anticipate discharge home tomorrow. Patient does give history that she was on atorvastatin and was unable to tolerate it and pravastatin ordered. Aspirin also was resumed yesterday. Objective - Vital Signs Vital signs: Vital Signs Temp 98.2 F 08/28/17 07:00 Pulse 76 08/28/17 08:35 Resp 18 08/28/17 08:25 BP 127/62 08/28/17 07:00 Pulse Ox 96 08/28/17 08:25 Intake & Output 08/27/17 08/28/17 08/28/17 18:59 06:59 18:59 Intake Total 250 540 Balance 250 540 Weight 51.71 kg Intake: Intake, IV Titration 250 Amount Azithromycin 500 mg In 250 Sodium Chloride 0.9% 250 ml @ 125 mls/hr IVPB DAILY [facility] Rx#:[id number] Oral 540 Other: Voiding Method Toilet Toilet Diaper Diaper # Voids 1 - Exam General appearance: mild distress, thin - EENT Eyes: anicteric sclerae, EOMI, PERRLA, no ptosis, no scleral icterus, normal appearance ENT: hard of hearing, NA/AT, normal oropharynx, no thrush Ears: bilateral: normal - Neck Neck: no lymphadenopathy, normal ROM, no rigidity, no stridor, no thyromegaly Carotids: bilateral: upstroke delayed Thyroid: bilateral: normal size - Respiratory Respiratory: bilateral: diminished, prolonged expiration, negative: dullness, rales, rhonchi, wheezing, - Cardiovascular Rhythm: regular Heart sounds: normal: S1, S2 Abnormal Heart Sounds: systolic murmur, no S3 Gallop, no S4 Gallop, no click - Gastrointestinal General gastrointestinal: normal bowel sounds, soft, no splenomegaly, no tenderness, no umbilical hernia, no ventral hernia - Integumentary Integumentary: normal, normal turgor - Neurologic Neurologic: CNII-XII intact - Musculoskeletal Musculoskeletal: generalized weakness, strength equal bilaterally - Psychiatric Psychiatric: A&O x's 3, appropriate affect, intact judgment & insight - Labs CBC & Chem 7: 08/26/17 15:20 08/26/17 15:20 Labs: Abnormal Lab Results - Last 24 Hours (Table) 08/27/17 08/27/17 08/27/17 Range/Units 10:34 11:53 16:33 D-Dimer 6.09 H (<0.60) mg/L FEU POC Glucose (mg/dL) 71 L 182 H (75-99) mg/dL 08/27/17 08/28/17 Range/Units 20:04 07:15 D-Dimer (<0.60) mg/L FEU POC Glucose (mg/dL) 203 H 142 H (75-99) mg/dL Microbiology - Last 24 Hours (Table) 08/27/17 08:48 Gram Stain - Preliminary Sputum 08/26/17 15:20 Blood Culture Gram Stain - Preliminary Blood Blood Culture - Preliminary Streptococcus species 08/26/17 15:20 Blood Culture - Preliminary Blood No Growth after 24 hours Assessment and Plan Plan: 1. Acute COPD exacerbation and acute tracheobronchitis with chronic hypoxic respiratory failure. Continue azithromycin and ceftriaxone, DuoNeb treatments 4 times daily and albuterol as needed, Solu-Medrol to prednisone. 2. Recent non-ST elevated myocardial infarction status post heart catheterization finding patent stent in the RCA and heavily calcified right and left coronary systems in July 2017. Atenolol, aspirin 81 mg orally once every day, Lipitor 40 mg. Note: patient has not been taking aspirin or Lipitor at home--she was unable to tolerate Lipitor at home. Pravastatin started. 3. Peripheral vascular disease. Arterial studies of the lower extremities. 4. Chronic back pain. CAT scan of the lumbar spine ordered. 5. Chronic anemia of chronic disease. 6. PUD. We will start the patient on Carafate 1 g orally 4 times every day. 7. Hep C S/P Harvoni therapy. 8. Hyperlipidemia. Lipitor. 9. Abdominal aortic aneurysm S/P endovascular stent. 10. Chronic tobacco use and dependence. Smoking cessation and counseling an increased risk of CAD, CVA, and malignancy. Patient on nicotine patch. 11. Migraine Headache. Continue Topamax 50 mg orally twice every day as well as Fioricet half a pill every 4 hours as needed. 12. Hypertension and hypertensive cardiovascular disease. Continue atenolol 12.5 mg orally once every day. 13. Restless leg syndrome. Continue Mirapex 0.125 mg orally at bedtime. 14. Obstructive sleep apnea. Stable. 15. Depression, recurrent. Continue Cymbalta 30 mg in the morning and 60 minute gram of the time. 16. Overactive bladder. Continue oxybutynin 5 mg orally twice every day. 17. DVT prophylaxis. Heparin subcu. 18. GI prophylaxis. Carafate. 19. Headache with pain and tenderness most significant at the right temporal. CRP and sed rate ordered to rule out temporal arteritis. Discharge plan: Return home Impression and plan of care have been directed as dictated by the signing physician. Coby Joaquin nurse practitioner acting as scribe for signing physician.
--- NOTE | 2017-08-28 13:52 | P.PN ---
Subjective Progress Note Date: 08/28/17 Principal diagnosis: Acute COPD exacerbation with tracheobronchitis Nafisa is a 67-year-old female patient who follows with Dr. Petersen for her history of COPD, presented to the ER on 08/26/2017 at 1400 with complaints of shortness of breath, cough, wheezing, chills. She states she has been sick since June, was recently hospitalized in July for non-ST elevated [place]. She had a heart catheterization on 07/21/2017, which revealed heavily calcified right and left coronary systems, patent stent in the RCA, mild disease involving the left circumflex, and mild disease in the proximal and mid LAD. Recommendation was made to maximize medical treatment. Since then patient had been on outpatient course of antibiotics, and oxygen at 2 L per nasal cannula. She has stopped smoking in July, is currently on a nicotine patch. She reports no improvement with antibiotics, complaining of ongoing wheezing, and production of thick clear sputum. On admission there was no evidence of leukocytosis, patient was afebrile. EKG showed normal sinus rhythm. Chest x- ray showed chronic emphysematous changes without any evidence of acute pulmonary process. D-dimer on admission was found to be elevated at 6, ultrasound Doppler of the right leg was negative for DVT. She had a CTA chest done in July 2017 which showed no evidence of pulmonary embolism. Patient was started on empiric antibiotics, and Rocephin, Zithromax, IV steroids, nebulized treatments, and admitted to the hospital for further treatment. On 08/28/2017 patient seen again on medical surgical floor, and proving, but not back to her baseline yet. Still becomes short of breath with exertion, currently on room air, with O2 sat 96%. Afebrile, vital signs are stable, lung sounds generally diminished, no rhonchi, no wheezing. Blood culture from 2017 was positive for Streptococcus species, patient is covered with Rocephin and Zithromax. Await final cultures. Follow-up culture on 08/27/2017 showed no growth. Patient's Solu-Medrol was switched over to prednisone, continue the rest of the medical treatments and nebulizer treatments. Objective - Vital Signs Vital signs: Vital Signs Temp 98.2 F 08/28/17 07:00 Pulse 80 08/28/17 11:48 Resp 18 08/28/17 11:39 BP 127/62 08/28/17 07:00 Pulse Ox 96 08/28/17 08:25 Intake & Output 08/27/17 08/28/17 08/28/17 18:59 06:59 18:59 Intake Total 250 540 250 Balance 250 540 250 Weight 51.71 kg Intake: Intake, IV Titration 250 Amount Azithromycin 500 mg In 250 Sodium Chloride 0.9% 250 ml @ 125 mls/hr IVPB DAILY [facility] Rx#:[id number] Oral 540 250 Other: Voiding Method Toilet Toilet Diaper Diaper # Voids 1 2 - Exam GENERAL EXAM: Alert, active, comfortable in no apparent distress. HEAD: Normocephalic/atraumatic. EYES: Normal reaction of pupils, equal size. Conjunctiva pink, sclera white. NOSE: Clear with pink turbinates. THROAT: No erythema or exudates. NECK: No masses, no JVD, no thyroid enlargement, no adenopathy. CHEST: No chest wall deformity. Symmetrical expansion. LUNGS: Equal air entry with no crackles, wheeze,no rhonchi CVS: Regular rate and rhythm, normal S1 and S2, no gallops, no murmurs, no rubs ABDOMEN: Soft, nontender. No hepatosplenomegaly, normal bowel sounds, no guarding or rigidity. EXTREMITIES: No clubbing, no edema, no cyanosis, 2+ pulses and upper and lower extremities. MUSCULOSKELETAL: Muscle strength and tone normal. SPINE: No scoliosis or deformity SKIN: No rashes CENTRAL NERVOUS SYSTEM: Alert and oriented -3. No focal deficits, tone is normal in all 4 extremities. PSYCHIATRIC: Alert and oriented -3. Appropriate affect. Intact judgment and insight. - Labs CBC & Chem 7: 08/26/17 15:20 08/26/17 15:20 Labs: Abnormal Lab Results - Last 24 Hours (Table) 08/27/17 08/27/17 08/28/17 Range/Units 16:33 20:04 07:15 POC Glucose (mg/dL) 182 H 203 H 142 H (75-99) mg/dL 08/28/17 Range/Units 11:31 POC Glucose (mg/dL) 135 H (75-99) mg/dL Microbiology - Last 24 Hours (Table) 08/27/17 10:34 Blood Culture - Preliminary Blood No Growth after 24 hours 08/26/17 15:20 Blood Culture - Final Blood 08/27/17 08:48 Gram Stain - Preliminary Sputum 08/26/17 15:20 Blood Culture Gram Stain - Preliminary Blood Blood Culture - Preliminary Streptococcus species Assessment and Plan Plan: Assessment: #1. Acute COPD exacerbation with tracheobronchitis, chest x-ray and 08/27/2017 shows chronic emphysematous changes, without acute pulmonary process #2. Chronic hypoxic respiratory failure, secondary to COPD #3. Recent non-ST elevated [place] in July 2017 #4. Coronary artery disease #5. Nicotine dependence, currently in remission #6. Chronic anemia of chronic disease #7. Chronic hepatitis C, status post Harvoni therapy #8. Hyperlipidemia #9. History of abdominal aortic aneurysm with repair #10. Hypertension Plan: Continue present medical treatment, Solu-Medrol has been switched over to prednisone per attending physician. Continue Zithromax and Rocephin. Awaiting final results of the blood culture from September 05,018 positive for Streptococcus species. Follow-up blood culture from 08/27/2017 showed no growth at the 24-hour [place]. I performed a history & physical examination of the patient and discussed their management with my nurse practitioner, Margaret Min. I reviewed the nurse practitioner's note and agree with the documented findings and plan of care. Lung sounds are diminished, no rhonchi, no wheezes. The findings and the impression was discussed with the patient. I attest to the documentation by the nurse practitioner. Time with Patient: Less than 30
[2017-08-28 16:42] LABS: Glucose,Whole Blood 132 mg/dL (75-99)
[2017-08-28] MEDS: traZODone HCL 50 MG TAB PO SCH (17:23)
[2017-08-28] MEDS: NICOTINE 14MG/24HR PATCH TRANSDERM SCH (17:24)
[2017-08-28 20:44] LABS: Glucose,Whole Blood 106 mg/dL (75-99)
[2017-08-28] MEDS: PRAVASTATIN SODIUM 80 MG TAB PO SCH (21:12)
[2017-08-28] MEDS: PRAMIPEXOLE 0.125 MG TAB PO SCH (21:13)
[2017-08-28] MEDS: DULoxetine HCL 60 MG CAPSULE.DR PO SCH (21:13)
[2017-08-28] MEDS: MELATONIN 5 MG TABLET PO SCH (21:13)
[2017-08-28] MEDS: ATENOLOL 12.5 MG TAB PO SCH (22:14)
[2017-08-29 07:15] LABS: Glucose,Whole Blood 110 mg/dL (75-99)
[2017-08-29 07:45] LABS: Anisocytosis Moderate; HCT 28.5 % (34.0-46.0); Hypochromasia Moderate; MCH 26.2 pg (25.0-35.0); MCHC 30.1 g/dL (31.0-37.0); MCV 86.9 fL (80.0-100.0); Mean Platelet Volume 7.9; Platelet Count 142 k/uL (150-450); RBC 3.28 m/uL (3.80-5.40); WBC 6.5 k/uL (3.8-10.6)
[2017-08-29 07:50] LABS: HGB 8.6 gm/dL (11.4-16.0)
[2017-08-29 08:04] LABS: Anion Gap 9 mmol/L; Blood Urea Nitrogen 21 mg/dL (7-17); Calcium 9.4 mg/dL (8.4-10.2); Carbon Dioxide 23 mmol/L (22-30); Chloride 113 mmol/L (98-107); Glucose 91 mg/dL (74-99); Potassium 4.2 mmol/L (3.5-5.1); Sodium 145 mmol/L (137-145)
[2017-08-29] MEDS: INSULIN ASPART 100 UNIT/ML 1 ML 10 ML VIAL SQ SCH ×4 (08:25→21:21)
[2017-08-29] MEDS: AZITHROMYCIN 500 MG TAB PO SCH (08:58)
[2017-08-29] MEDS: ASPIRIN 81 MG PO SCH (08:58)
[2017-08-29] MEDS: CHOLECALCIFEROL 1,000 UNIT TAB PO SCH (08:59)
[2017-08-29] MEDS: cefTRIAXone IN SWFI 1,000 MG/10 ML SYRINGE IVP SCH (08:59)
[2017-08-29] MEDS: cycloSPORINE 0.05% OPHTH 0.4 ML DROPERETTE BOTH EYES SCH ×2 (08:59→20:05)
[2017-08-29] MEDS: CALCIUM CARBONATE 500 MG CHEWABLE PO SCH ×2 (08:59→20:05)
[2017-08-29] MEDS: predniSONE 50 MG TAB PO SCH (09:01)
[2017-08-29] MEDS: HEPARIN SODIUM,PORCINE 5,000 UNIT/ML 1 ML VIAL SQ SCH ×2 (09:01→20:05)
[2017-08-29] MEDS: DEXILANT 60MG PO SCH (09:01)
[2017-08-29] MEDS: TOPIRAMATE 25 MG TAB PO SCH ×2 (09:01→20:06)
[2017-08-29] MEDS: DULoxetine HCL 30 MG CAPSULE.DR PO SCH (09:01)
[2017-08-29] MEDS: SUCRALFATE 1 GM TAB PO SCH ×4 (09:12→20:04)
[2017-08-29] MEDS: IPRATROPIUM-ALBUTEROL 3 ML NEB INHALATION SCH ×4 (09:20→21:30)
[2017-08-29] MEDS ORDERED: RX INFO: IV CONTRAST WAS GIVEN 1 EACH MISC MISCELLANE PRN (09:33)
[2017-08-29] MEDS: SENNOSIDES-DOCUSATE SODIUM 1 EACH TAB PO SCH ×3 (11:15→20:02)
[2017-08-29] MEDS ORDERED: LEVOFLOXACIN 750 MG TAB PO SCH (11:15)
[2017-08-29] MEDS: IOHEXOL 350 MG/ML 25 ML BOTTLE (ORAL USE) PO PRN ×2 (11:30→12:27)
--- NOTE | 2017-08-29 12:02 | P.PN ---
Subjective Progress Note Date: 08/29/17 This is a 66-year-old female one of Dr. Colbert patient with past medical history of hepatitis C post the Harvoni therapy with history of CAD COPD asthma and previous history of DVT along with Takosubu syndrome who was hospitalized at [facility] in April 2016 for GI bleed with slight drop in hemoglobin was treated and did well ended up being discharged home. In January 2017, she had an admission for acute COPD exacerbation and acute bronchitis. He said hospitalization July 18 for non-ST elevated myocardial infarction status post heart cath and stent in the RCA. Patient states that she has been on antibiotics in the outpatient setting as well as oxygen round- the-clock at 2 L nasal cannula versus at nighttime only. She does state that she stopped smoking in July on a nicotine patch. She is complaining of wheezing and clear thick sputum production. She states she is not getting better with antibiotics. She does complain of leg cramping when she stands up and has to walk to get the cramping to improve. She denies any edema. 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 She states that she was post have an ultrasound done of the area but she was late for appointment and it was canceled. She presents to [facility] emergency center. No leukocytosis, hemoglobin 10.5, afebrile. EKG was a sinus rhythm. Chest x-ray shows chronic emphysematous changes without acute pulmonary process. A dime or was elevated at 6 and on previous admission D-dimer was elevated at 5 and she underwent a CTA of the chest that was negative for pulmonary embolism. There is moderately severe pulmonary emphysema , pulmonary interstitial fibrosis, pleural and pulmonary scarring and calcification at the lung apices. No significant change from prior exam. Atheromatous aorta. Patient was admitted to the MedSurg floor and started on nebulizer treatments, azithromycin, ceftriaxone, Solu-Medrol and consult with pulmonary medicine. 08/28: Patient states that she is not sleeping. Trazodone added to be given at supper time. She is complaining of headache with no significant pain at the right religion. CRP and sed rate ordered. Solu-Medrol will be decreased and change house attendant to prednisone in the morning. Anticipate discharge home tomorrow. Patient does give history that she was on atorvastatin and was unable to tolerate it and pravastatin ordered. Aspirin also was resumed yesterday. 08/29: Initial blood culture returned positive for viridans streptococcus group. Repeat blood culture from August 27 showing no growth after 24 hours. Patient does complain of her gums hurting and unable to wear her dentures. She had all her teeth removed in 2013. Pulmonary medicine is changed ceftriaxone to Levaquin. Consult has been added for Dr. Islas. CAN has been requested to be done by cardiology. Patient's breathing status is improving not quite back to her baseline. Pulse ox is 96% with oxygen at 3 L nasal cannula. She has been afebrile. Patient did start prednisone this morning. She is complaining of mid right abdominal pain and tenderness for which a CAT scan of the abdomen and pelvis with contrast has been ordered noted patient has ALLERGY listed in with vaginal bleeding. Vaginal bleeding is not a direct result of contrast. Patient understands this and no premedication as necessary. Patient does have postmenopausal bleeding for which she follows with Dr. Lopez but has been noncompliant and did not make her last appointment. No active vaginal bleeding at this time. Objective - Vital Signs Vital signs: Vital Signs Temp 98.3 F 08/29/17 07:00 Pulse 67 08/29/17 09:31 Resp 18 08/29/17 09:20 BP 149/67 08/29/17 07:00 Pulse Ox 97 08/29/17 09:20 Intake & Output 08/28/17 08/29/17 08/29/17 18:59 06:59 18:59 Intake Total 250 1780 Balance 250 1780 Intake: Oral 250 1780 Other: Voiding Method Toilet Diaper # Voids 2 1 - Exam General appearance: mild distress, thin - EENT Eyes: anicteric sclerae, EOMI, PERRLA, no ptosis, no scleral icterus, normal appearance ENT: hard of hearing, NA/AT, normal oropharynx, no thrush Ears: bilateral: normal - Neck Neck: no lymphadenopathy, normal ROM, no rigidity, no stridor, no thyromegaly Carotids: bilateral: upstroke delayed Thyroid: bilateral: normal size - Respiratory Respiratory: bilateral: diminished, prolonged expiration, negative: dullness, rales, rhonchi, wheezing, - Cardiovascular Rhythm: regular Heart sounds: normal: S1, S2 Abnormal Heart Sounds: systolic murmur, no S3 Gallop, no S4 Gallop, no click - Gastrointestinal General gastrointestinal: normal bowel sounds, soft, no splenomegaly, no tenderness, no umbilical hernia, no ventral hernia - Integumentary Integumentary: normal, normal turgor - Neurologic Neurologic: CNII-XII intact - Musculoskeletal Musculoskeletal: generalized weakness, strength equal bilaterally - Psychiatric Psychiatric: A&O x's 3, appropriate affect, intact judgment & insight - Labs CBC & Chem 7: 08/29/17 07:08 08/29/17 07:08 Labs: Abnormal Lab Results - Last 24 Hours (Table) 08/28/17 08/28/17 08/28/17 Range/Units 11:31 16:37 20:43 RBC (3.80-5.40) m/uL Hgb (11.4-16.0) gm/dL Hct (34.0-46.0) % MCHC (31.0-37.0) g/dL RDW (11.5-15.5) % Plt Count (150-450) k/uL Chloride (98-107) mmol/L BUN (7-17) mg/dL POC Glucose (mg/dL) 135 H 132 H 106 H (75-99) mg/dL 08/29/17 08/29/17 08/29/17 Range/Units 07:08 07:08 07:13 RBC 3.28 L (3.80-5.40) m/uL Hgb 8.6 L D (11.4-16.0) gm/dL Hct 28.5 L (34.0-46.0) % MCHC 30.1 L (31.0-37.0) g/dL RDW 21.0 H (11.5-15.5) % Plt Count 142 L (150-450) k/uL Chloride 113 H (98-107) mmol/L BUN 21 H (7-17) mg/dL POC Glucose (mg/dL) 110 H (75-99) mg/dL Microbiology - Last 24 Hours (Table) 08/26/17 15:20 Blood Culture Gram Stain - Final Blood Blood Culture - Final Viridans streptococcus group 08/27/17 10:34 Blood Culture - Preliminary Blood No Growth after 24 hours 08/26/17 15:20 Blood Culture - Final Blood Assessment and Plan Plan: 1. Acute COPD exacerbation and acute tracheobronchitis with chronic hypoxic respiratory failure. Continue azithromycin and Levaquin, DuoNeb treatments 4 times daily and albuterol as needed, Solu-Medrol to prednisone. 2. Viridans strep bacteremia. Repeat blood cultures showing no growth after 24 hours. Consult placed with Dr. Islas. Patient is currently on Levaquin. Consult with cardiology for CAN scheduled for Friday with Dr. Garcia. 3. Recent non-ST elevated myocardial infarction status post heart catheterization finding patent stent in the RCA and heavily calcified right and left coronary systems in July 2017. Atenolol, aspirin 81 mg orally once every day, Lipitor 40 mg. Note: patient has not been taking aspirin or Lipitor at home--she was unable to tolerate Lipitor at home. Pravastatin started. 4. Peripheral vascular disease. Arterial studies of the lower extremities. 5. Chronic back pain. CAT scan of the lumbar spine ordered. 6. Chronic anemia of chronic disease. 7. PUD. We will start the patient on Carafate 1 g orally 4 times every day. 8. Hep C S/P Harvoni therapy. 9. Hyperlipidemia. Lipitor. 10. Abdominal aortic aneurysm S/P endovascular stent. 11. Chronic tobacco use and dependence. Smoking cessation and counseling an increased risk of CAD, CVA, and malignancy. Patient on nicotine patch. 12. Migraine Headache. Continue Topamax 50 mg orally twice every day as well as Fioricet half a pill every 4 hours as needed. 13. Hypertension and hypertensive cardiovascular disease. Continue atenolol 12.5 mg orally once every day. 14. Restless leg syndrome. Continue Mirapex 0.125 mg orally at bedtime. 15. Obstructive sleep apnea. Stable. 16. Depression, recurrent. Continue Cymbalta 30 mg in the morning and 60 minute gram of the time. 17. Overactive bladder. Continue oxybutynin 5 mg orally twice every day. 18. DVT prophylaxis. Heparin subcu. 19. GI prophylaxis. Carafate. 20. Headache with pain and tenderness most significant at the right temporal. CRP and sed rate ordered to rule out temporal arteritis. 21. Postmenopausal vaginal bleeding. Patient has been encouraged to follow-up with Dr. Lopez as an outpatient. 22. Right-sided abdominal pain. CAT scan of the abdomen and pelvis ordered. Discharge plan: Return home with [facility] Impression and plan of care have been directed as dictated by the signing physician. Coby Joaquin nurse practitioner acting as scribe for signing physician.
--- NOTE | 2017-08-29 12:15 | P.PN ---
Subjective Progress Note Date: 08/29/17 Principal diagnosis: Acute COPD exacerbation with tracheobronchitis Nafisa is a 67-year-old female patient who follows with Dr. Petersen for her history of COPD, presented to the ER on 08/26/2017 at 1400 with complaints of shortness of breath, cough, wheezing, chills. She states she has been sick since June, was recently hospitalized in July for non-ST elevated [place]. She had a heart catheterization on 07/21/2017, which revealed heavily calcified right and left coronary systems, patent stent in the RCA, mild disease involving the left circumflex, and mild disease in the proximal and mid LAD. Recommendation was made to maximize medical treatment. Since then patient had been on outpatient course of antibiotics, and oxygen at 2 L per nasal cannula. She has stopped smoking in July, is currently on a nicotine patch. She reports no improvement with antibiotics, complaining of ongoing wheezing, and production of thick clear sputum. On admission there was no evidence of leukocytosis, patient was afebrile. EKG showed normal sinus rhythm. Chest x- ray showed chronic emphysematous changes without any evidence of acute pulmonary process. D-dimer on admission was found to be elevated at 6, ultrasound Doppler of the right leg was negative for DVT. She had a CTA chest done in July 2017 which showed no evidence of pulmonary embolism. Patient was started on empiric antibiotics, and Rocephin, Zithromax, IV steroids, nebulized treatments, and admitted to the hospital for further treatment. On 08/28/2017 patient seen again on medical surgical floor, and proving, but not back to her baseline yet. Still becomes short of breath with exertion, currently on room air, with O2 sat 96%. Afebrile, vital signs are stable, lung sounds generally diminished, no rhonchi, no wheezing. Blood culture from 2017 was positive for Streptococcus species, patient is covered with Rocephin and Zithromax. Await final cultures. Follow-up culture on 08/27/2017 showed no growth. Patient's Solu-Medrol was switched over to prednisone, continue the rest of the medical treatments and nebulizer treatments. On 08/29/2017 patient seen in follow-up. Blood culture from 08/26/2017 was positive for Streptococcus viridans group, resistant to azithromycin and Rocephin, the patient is currently on. Follow-up blood cultures from 2017 shows no growth at the 24-hour [place]. Sputum culture shows no growth. Afebrile, vital signs are stable, remains on 3 L per nasal cannula with O2 sat 97%. Lung sounds are diminished, no wheezes or rhonchi auscultated. Still has a persistent cough with production of white sputum. Complaining of some lower abdominal discomfort, nonspecific, complains of being constipated over last few days, but no nausea, no vomiting. Patient is scheduled for CT dominant pelvis with and without contrast, ID service was consulted. Cardiology was consulted with concerns of endocarditis related to bacteremia. Objective - Vital Signs Vital signs: Vital Signs Temp 98.3 F 08/29/17 07:00 Pulse 67 08/29/17 09:31 Resp 18 08/29/17 09:20 BP 149/67 08/29/17 07:00 Pulse Ox 97 08/29/17 09:20 Intake & Output 08/28/17 08/29/17 08/29/17 18:59 06:59 18:59 Intake Total 250 1780 Balance 250 1780 Intake: Oral 250 1780 Other: Voiding Method Toilet Diaper # Voids 2 1 - Exam GENERAL EXAM: Alert, active, comfortable in no apparent distress. HEAD: Normocephalic/atraumatic. EYES: Normal reaction of pupils, equal size. Conjunctiva pink, sclera white. NOSE: Clear with pink turbinates. THROAT: No erythema or exudates. NECK: No masses, no JVD, no thyroid enlargement, no adenopathy. CHEST: No chest wall deformity. Symmetrical expansion. LUNGS: Equal air entry with no crackles, wheeze,no rhonchi CVS: Regular rate and rhythm, normal S1 and S2, no gallops, no murmurs, no rubs ABDOMEN: Soft, slightly tender to palpation in the left lower and right lower quadrant. No hepatosplenomegaly, normal bowel sounds, no guarding or rigidity. EXTREMITIES: No clubbing, no edema, no cyanosis, 2+ pulses and upper and lower extremities. MUSCULOSKELETAL: Muscle strength and tone normal. SPINE: No scoliosis or deformity SKIN: No rashes CENTRAL NERVOUS SYSTEM: Alert and oriented -3. No focal deficits, tone is normal in all 4 extremities. PSYCHIATRIC: Alert and oriented -3. Appropriate affect. Intact judgment and insight. - Labs CBC & Chem 7: 08/29/17 07:08 08/29/17 07:08 Labs: Abnormal Lab Results - Last 24 Hours (Table) 08/28/17 08/28/17 08/29/17 Range/Units 16:37 20:43 07:08 RBC 3.28 L (3.80-5.40) m/uL Hgb 8.6 L D (11.4-16.0) gm/dL Hct 28.5 L (34.0-46.0) % MCHC 30.1 L (31.0-37.0) g/dL RDW 21.0 H (11.5-15.5) % Plt Count 142 L (150-450) k/uL Chloride (98-107) mmol/L BUN (7-17) mg/dL POC Glucose (mg/dL) 132 H 106 H (75-99) mg/dL 08/29/17 08/29/17 Range/Units 07:08 07:13 RBC (3.80-5.40) m/uL Hgb (11.4-16.0) gm/dL Hct (34.0-46.0) % MCHC (31.0-37.0) g/dL RDW (11.5-15.5) % Plt Count (150-450) k/uL Chloride 113 H (98-107) mmol/L BUN 21 H (7-17) mg/dL POC Glucose (mg/dL) 110 H (75-99) mg/dL Microbiology - Last 24 Hours (Table) 08/27/17 08:48 Gram Stain - Final Sputum Sputum Culture - Final 08/26/17 15:20 Blood Culture Gram Stain - Final Blood Blood Culture - Final Viridans streptococcus group 08/27/17 10:34 Blood Culture - Preliminary Blood No Growth after 24 hours 08/26/17 15:20 Blood Culture - Final Blood Assessment and Plan Plan: Assessment: #1. Acute COPD exacerbation with tracheobronchitis, chest x-ray and 08/27/2017 shows chronic emphysematous changes, without acute pulmonary process #2. Chronic hypoxic respiratory failure, secondary to COPD #3. Recent non-ST elevated [place] in July 2017 #4. Coronary artery disease #5. Nicotine dependence, currently in remission #6. Chronic anemia of chronic disease #7. Chronic hepatitis C, status post Harvoni therapy #8. Hyperlipidemia #9. History of abdominal aortic aneurysm with repair #10. Hypertension Plan: Remains stable from pulmonary standpoint, still has mild persistent cough with some white phlegm production, no wheezing or rhonchi. There is evidence of bacteremia and her blood cultures for strep viridans species, resistant to azithromycin and Rocephin. We will stop those, we will initiate patient on Levaquin. ID service was consulted, patient will go for CT abdomen and pelvis, cardiology consult for possible CAN with concerns of endocarditis related to bacteremia. We'll continue to follow continue with the rest the medical treatments for now. I performed a history & physical examination of the patient and discussed their management with my nurse practitioner, Margaret Min. I reviewed the nurse practitioner's note and agree with the documented findings and plan of care. Lung sounds are diminished, no rhonchi, no wheezes. The findings and the impression was discussed with the patient. I attest to the documentation by the nurse practitioner. Time with Patient: Less than 30
[2017-08-29 12:28] LABS: Glucose,Whole Blood 123 mg/dL (75-99)
--- NOTE | 2017-08-29 12:40 | P.CONS ---
History of Present Illness - Reason for Consult Consult date: 08/29/17 Strep Bacteremia - History of Present Illness This is a 67-year-old female with past medical history of hepatitis C post the Harvoni therapy with history of CAD COPD asthma and previous history of DVT along with Takosubu syndrome who was hospitalized at [facility] in April 2016 for GI bleed with slight drop in hemoglobin was treated and did well ended up being discharged home. In January 2017, she had an admission for acute COPD exacerbation and acute bronchitis. Hospitalization July 18, 2017, for non-ST elevated myocardial infarction status post heart cath and patent stent in the RCA with heavily calcified right and left coronary systems and recommendations to maximize medical treatment. Patient states that she has been on antibiotics in the outpatient setting as well as oxygen [id number] at 2 L nasal cannula versus at nighttime only. She does state that she stopped smoking in July on a nicotine patch. She is complaining of wheezing and clear thick sputum production. She states she is not getting better with antibiotics. She does complain of leg cramping when she stands up and has to walk to get the cramping to improve. She denies any edema. He does have history of dissection at the right groin when she underwent heart catheterization was subsequently done from right radial approach. She presents to [facility] emergency center. No leukocytosis, hemoglobin 10.5, afebrile. EKG was a sinus rhythm. Chest x-ray shows chronic emphysematous changes without acute pulmonary process. D Dimer was elevated at 6 and on previous admission D-dimer was elevated at 5 and she underwent a CTA of the chest that was negative for pulmonary embolism. There is moderately severe pulmonary emphysema, pulmonary interstitial fibrosis, pleural and pulmonary scarring and calcification at the lung apices. No significant change from prior exam. Atheromatous aorta. He underwent ultrasound duplex of the right lower extremity that was negative for DVT. Repeat chest x-ray shows chronic emphysematous changes without acute pulmonary process. CAT scan of the lumbar spine showed multilevel degenerative changes in the lumbar spine with no significant change from November 2016. No obvious large disc herniation difficult for patients right-sided radiculopathy symptoms. Patient was admitted to the [facility] floor and started on nebulizer treatments, azithromycin, ceftriaxone, Solu-Medrol and consult with pulmonary medicine, Dr. Naylor. Patient has been transitioned over to oral prednisone. She was complaining of headache with significant pain at the right jew. CRP and sed rate were normal. Initial blood culture returned positive for viridans streptococcus group. Repeat blood culture from August 27 showing no growth after 24 hours. Patient does complain of her gums hurting and unable to wear her dentures. She had all her teeth removed in 2013. Pulmonary medicine is changed ceftriaxone to Levaquin. CAN has been requested to be done by cardiology and is scheduled for Friday with Dr. Garcia. There is a CAT scan of the abdomen and pelvis with contrast ordered for right sided abdominal pain. Patient has been afebrile since admission. Sputum culture has been ordered. Review of Systems All systems: negative Constitutional: Reports fatigue, Reports poor appetite, Reports weakness, Denies chills, Denies fever Eyes: denies blurred vision, denies pain Ears, nose, mouth and throat: Reports mouth pain, Denies headache, Denies sore throat, Denies vertigo Cardiovascular: Reports decreased exercise tolerance, Reports dyspnea on exertion, Reports shortness of breath, Denies chest pain, Denies edema, Denies leg edema, Denies lightheadedness, Denies syncope Respiratory: Reports cough, Reports cough with sputum, Reports dyspnea, Reports home oxygen, Reports wheezing, Denies excessive sputum, Denies hemoptysis Gastrointestinal: Reports abdominal pain, Denies diarrhea, Denies nausea, Denies vomiting Genitourinary: Denies dysuria, Denies hematuria Musculoskeletal: Denies myalgias Integumentary: Denies pruritus, Denies rash Neurological: Denies numbness, Denies weakness Psychiatric: Denies anxiety, Denies depression Endocrine: Denies fatigue, Denies weight change Past Medical History Past Medical History: Asthma, Chest Pain / Angina, COPD, Deep Vein Thrombosis ( DVT), GERD/Reflux, Hypertension, Liver Disease, Myocardial Infarction (VT), Musculoskeletal Disorder, Pneumonia, Sleep Apnea/CPAP/BIPAP, Vascular Disorder Additional Past Medical History / Comment(s): 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 amenia-iron infusons x2 Last Myocardial Infarction Date:: 06/2011 History of Any Multi-Drug Resistant Organisms: None Reported Past Surgical History: Bladder Surgery, Heart Catheterization With Stent, Hysterectomy, Orthopedic Surgery Additional Past Surgical History / Comment(s): HEART STENT 2010. AAA STENT 2005. VARICOSE VEIN STRIPPING R leg. EXP LAP. LIVER/BX, HAD RT FOOT SURGERY D/ T SALMONELLA INFECTION. R SHOULDER SCOPE. COLONOSCOPY-NORMAL. BLADDER SUSPENSIONS. Past Anesthesia/Blood Transfusion Reactions: No Reported Reaction Date of Last Stent Placement:: 2010 Smoking Status: Current every day smoker Additional Past Alcohol Use History / Comment(s): She was a smoker starting in 195 in half to one pack per day and date she quit in June but on last admission in July she was smoking half a pack per day. No illicit drug use , and no alcohol abuse. - Past Family History Brother(s) Family Medical History: Coronary Artery Disease (CAD), Myocardial Infarction (VT ) Father Additional Family Medical History / Comment(s): FROM CIRRHOSIS OF THE LIVER Mother Family Medical History: COPD Additional Family Medical History / Comment(s): FROM AAA, HAD HX TB Medications and Allergies Home Medications Medication Instructions Recorded Confirmed Type ALPRAZolam [Xanax] 1 mg PO TID 12/27/13 08/26/17 History Albuterol Sulfate [Ventolin HFA] 2 puff INHALATION RT-TID PRN 12/27/13 08/26/17 History Atenolol [Tenormin] 12.5 mg PO 12/27/13 08/26/17 History Dexlansoprazole [Dexilant] 60 mg PO DAILY 12/27/13 08/26/17 History Sucralfate [Carafate] 1 gm PO ACHS 12/27/13 08/26/17 History cycloSPORINE [Restasis] 2 drop BOTH EYES BID 12/27/13 08/26/17 History Pramipexole [Mirapex] 0.125 mg PO HS 09/12/14 08/26/17 History Tiotropium 18 Mcg/Puff [Spiriva] 1 cap INHALATION RT-HS 09/12/14 08/26/17 History Topiramate [Topamax] 50 mg PO BID 05/03/15 08/26/17 History Butalb/APAP/Caff 50-325-40Mg 0.5 tab PO Q4H PRN 02/13/17 08/26/17 History [Fioricet 50-325-40] Cholecalciferol [Vitamin D3] 1,000 unit PO DAILY 02/13/17 08/26/17 History Ipratropium-Albuterol Nebulize 3 ml INHALATION RT-QID #120 neb 02/16/17 Rx [Duoneb 0.5 mg-3 mg/3 ml Soln] Melatonin 5 mg PO HS #30 tablet 02/16/17 08/26/17 Rx DULoxetine HCL [Cymbalta] 30 mg PO DAILY 07/18/17 08/26/17 History DULoxetine HCL [Cymbalta] 60 mg PO HS 07/18/17 08/26/17 History Nicotine 14Mg/24Hr Patch [Habitrol] 1 patch TRANSDERM Q24H #30 patch 07/22/17 Rx Nitroglycerin Sl Tabs [Nitrostat] 0.4 mg SUBLINGUAL Q5M PRN #25 tab 07/22/1705/05 Rx Ciprofloxacin HCl [Cipro] 500 mg PO Q12HR 08/20/17 08/26/17 History Calcium Carbonate [Calcium] 600 mg PO BID 08/25/17 08/26/17 History Allergies Allergy/AdvReac Type Severity Reaction Status Date / Time naproxen sodium [From Aleve] Allergy Severe Anaphylaxis Verified 08/26/17 15:08 adhesive Allergy Rash/Hives Verified 08/26/17 15:08 cinnamon [Cinnamon] Allergy Dyspnea Verified 08/26/17 15:08 clindamycin Allergy Anaphylaxis Verified 08/26/17 15:08 codeine Allergy Nausea & Verified 08/26/17 15:08 Vomiting gentamicin [Gentamicin] Allergy SWELLING Verified 08/26/17 15:08 OF FACE W/ EYE DROPS paola Allergy Dyspnea Verified 08/26/17 15:21 Iodinated Contrast- Oral and Allergy VAGINAL Verified 08/29/17 09:42 IV Dye BLEEDING [Iodinated Contrast Media - AFTER IV Dye] latex Allergy Rash/Hives Verified 08/26/17 15:08 levothyroxine sodium Allergy Unknown Verified 08/26/17 15:08 [From Synthroid] montelukast sodium Allergy Wheezing Verified 08/26/17 15:08 [From Singulair] pantoprazole sodium Allergy Abdominal Verified 08/26/17 15:08 [From Protonix] Pain Penicillins Allergy Rash/Hives Verified 08/26/17 15:08 red dye Allergy Abdominal Verified 08/26/17 15:08 Pain Sulfa (Sulfonamide Allergy Swelling Verified 08/26/17 15:08 Antibiotics) IN MOUTH sulfamethoxazole Allergy swelling Verified 08/26/17 15:08 [From Bactrim] tongue trimethoprim [From Bactrim] Allergy Swelling Verified 08/26/17 15:08 venom-honey bee Allergy Dyspnea Verified 08/26/17 15:08 [bee venom (honey bee)] BANDAIDS Allergy Rash/Hives Uncoded 08/26/17 14:49 tomatoes AdvReac Abdominal Uncoded 08/26/17 18:17 Pain Physical Exam Vitals: Vital Signs Temp Pulse Pulse Resp BP Pulse Ox 08/29/17 09:31 67 08/29/17 09:20 67 18 97 08/29/17 07:00 98.3 F 60 12 149/67 100 08/29/17 00:00 16 08/28/17 23:00 98.3 F 99 16 134/64 96 08/28/17 20:50 78 08/28/17 20:37 80 08/28/17 16:43 80 08/28/17 16:29 78 97 08/28/17 15:00 97.9 F 107 H 18 110/51 99 08/28/17 11:48 80 08/28/17 11:39 80 18 Intake and Output 08/28/17 08/29/17 08/29/17 22:59 06:59 14:59 Intake Total 1660 120 Balance 1660 120 Intake: Oral 1660 120 Other: Voiding Method Toilet Diaper # Voids 2 1 Gen: This is a thin 67-year-old female in mild respiratory distress with talking. HEENT: Head is atraumatic, normocephalic. Pupils equal, round. Sclerae is anicteric. Conjunctiva pink. NECK: Supple. No JVD. No lymphadenopathy. No thyromegaly. LUNGS: Few scattered wheezes and rhonchi. No intercostal retractions. HEART: Regular rate and rhythm. No murmur. ABDOMEN: Soft. Bowel sounds are present. No masses. Tenderness to the right mid abdomen. No CVA tenderness EXTREMITIES: No pedal edema. No calf tenderness. Dorsalis pedis +2 bilaterally. NEUROLOGICAL: Patient is awake, alert and oriented x3. Cranial nerves 2 through 12 are grossly intact. Results Results: Laboratory Results WBC 6.5 k/uL (3.8-10.6) 08/29/17 07:08 RBC 3.28 m/uL (3.80-5.40) L 08/29/17 07:08 Hgb 8.6 gm/dL (11.4-16.0) L D 08/29/17 07:08 Hct 28.5 % (34.0-46.0) L 08/29/17 07:08 MCV 86.9 fL (80.0-100.0) 08/29/17 07:08 MCH 26.2 pg (25.0-35.0) 08/29/17 07:08 MCHC 30.1 g/dL (31.0-37.0) L 08/29/17 07:08 RDW 21.0 % (11.5-15.5) H 08/29/17 07:08 Plt Count 142 k/uL (150-450) L 08/29/17 07:08 Neutrophils % 64 % 08/26/17 15:20 Lymphocytes % 21 % 08/26/17 15:20 Monocytes % 4 % 08/26/17 15:20 Eosinophils % 10 % 08/26/17 15:20 Basophils % 0 % 08/26/17 15:20 Neutrophils # 5.0 k/uL (1.3-7.7) 08/26/17 15:20 Lymphocytes # 1.6 k/uL (1.0-4.8) 08/26/17 15:20 Monocytes # 0.3 k/uL (0-1.0) 08/26/17 15:20 Eosinophils # 0.8 k/uL (0-0.7) H 08/26/17 15:20 Basophils # 0.0 k/uL (0-0.2) 08/26/17 15:20 Hypochromasia Moderate 08/29/17 07:08 Anisocytosis Moderate 08/29/17 07:08 Macrocytosis Slight 08/26/17 15:20 ESR 8 mm/hr (0-20) 08/28/17 14:30 PT 10.4 sec (9.0-12.0) 08/26/17 15:20 INR 1.1 (<1.2) 08/26/17 15:20 APTT 22.6 sec (22.0-30.0) 08/26/17 15:20 D-Dimer 6.09 mg/L FEU (<0.60) H 08/27/17 10:34 Sodium 145 mmol/L (137-145) 08/29/17 07:08 Potassium 4.2 mmol/L (3.5-5.1) 08/29/17 07:08 Chloride 113 mmol/L (98-107) H 08/29/17 07:08 Carbon Dioxide 23 mmol/L (22-30) 08/29/17 07:08 Anion Gap 9 mmol/L 08/29/17 07:08 BUN 21 mg/dL (7-17) H 08/29/17 07:08 Creatinine 0.99 mg/dL (0.52-1.04) 08/29/17 07:08 Est GFR (MDRD) Af Amer >60 (>60 ml/min/1.73 sqM) 08/29/17 07:08 Est GFR (MDRD) Non-Af 56 (>60 ml/min/1.73 sqM) 08/29/17 07:08 Glucose 91 mg/dL (74-99) 08/29/17 07:08 POC Glucose (mg/dL) 123 mg/dL (75-99) H 08/29/17 12:27 POC Glu Panelbeater ID Renita Houser 08/29/17 12:[address] Glu mg/dL 103 08/27/17 10:34 Hemoglobin A1c 5.2 % (4.0-6.0) 08/27/17 10:34 Calcium 9.4 mg/dL (8.4-10.2) 08/29/17 07:08 Magnesium 1.9 mg/dL (1.6-2.3) 08/26/17 15:20 Total Bilirubin 0.3 mg/dL (0.2-1.3) 08/26/17 15:20 AST 27 U/L (14-36) 08/26/17 15:20 ALT 27 U/L (9-52) 08/26/17 15:20 Alkaline Phosphatase 62 U/L (38-126) 08/26/17 15:20 Total Creatine Kinase 75 U/L (30-135) 08/26/17 15:20 CK-MB (CK-2) 2.2 ng/mL (0.0-2.4) 08/26/17 15:20 CK-MB (CK-2) Rel Index 2.9 08/26/17 15:20 Troponin I <0.012 ng/mL (0.000-0.034) 08/26/17 15:20 C-Reactive Protein 5.1 mg/L (<10.0) 08/28/17 14:30 NT-Pro-B Natriuret Pep 431 pg/mL 08/26/17 15:20 Total Protein 7.6 g/dL (6.3-8.2) 08/26/17 15:20 Albumin 4.6 g/dL (3.5-5.0) 08/26/17 15:20 CBC & Chem 7: 08/29/17 07:08 08/29/17 07:08 Labs: Abnormal Lab Results - Last 24 Hours (Table) 08/28/17 08/28/17 08/28/17 Range/Units 11:31 16:37 20:43 RBC (3.80-5.40) m/uL Hgb (11.4-16.0) gm/dL Hct (34.0-46.0) % MCHC (31.0-37.0) g/dL RDW (11.5-15.5) % Plt Count (150-450) k/uL Chloride (98-107) mmol/L BUN (7-17) mg/dL POC Glucose (mg/dL) 135 H 132 H 106 H (75-99) mg/dL 08/29/17 08/29/17 08/29/17 Range/Units 07:08 07:08 07:13 RBC 3.28 L (3.80-5.40) m/uL Hgb 8.6 L D (11.4-16.0) gm/dL Hct 28.5 L (34.0-46.0) % MCHC 30.1 L (31.0-37.0) g/dL RDW 21.0 H (11.5-15.5) % Plt Count 142 L (150-450) k/uL Chloride 113 H (98-107) mmol/L BUN 21 H (7-17) mg/dL POC Glucose (mg/dL) 110 H (75-99) mg/dL Microbiology - Last 24 Hours (Table) 08/26/17 15:20 Blood Culture Gram Stain - Final Blood Blood Culture - Final Viridans streptococcus group 08/27/17 10:34 Blood Culture - Preliminary Blood No Growth after 24 hours 08/26/17 15:20 Blood Culture - Final Blood Assessment and Plan Plan: This is a 67-year-old female who presented to the hospital with acute COPD exacerbation and acute tracheobronchitis with chronic hypoxic respiratory failure. She has been followed also by pulmonary medicine. Blood culture is returned positive for viridans strep group with marriage and strep bacteremia. She has been treated with azithromycin and ceftriaxone has been changed to Levaquin. A CAN is scheduled for Friday with Dr. Garcia. Repeat blood cultures showing no growth. Continue supportive care. Further recommendations as patient progresses. The above dictated assessment and findings were discussed with Dr. Islas. The impression and plan of care have been directed as dictated. Coby Joaquin nurse practitioner acting as scribe for Dr. Islas.
[2017-08-29] MEDS ORDERED: VANCOMYCIN IV PER PHARMACY 1 EACH MISC MISCELLANE PRN (13:24)
--- NOTE | 2017-08-29 13:52 | CT ---
EXAMINATION TYPE: CT abdomen pelvis w con DATE OF EXAM: 08/29/2017 COMPARISON: CT abdomen pelvis 11/19/2016 HISTORY: Patient complains of generalized abdominal pain and fever. CT DLP: 1010 mGycm Automated exposure control for dose reduction was used. TECHNIQUE: Helical acquisition of images from the lung bases through the pelvis have been completed. CONTRAST: Performed with Oral Contrast and with IV Contrast, patient injected with 80 mL of Omnipaque 300. FINDINGS: LUNG BASES: Emphysematous changes are present within the lungs.. AORTA: Stable in appearance, aortic stent graft is present, transverse dimension of aorta is essenti ally stable. Common iliac artery aneurysms are again noted measuring approximately 3.2 cm on the left as compared to prior when it measured approximately 2.9 cm, 2.3 cm on the right currently and measur ing 2.1 cm on previous AP dimension.1 LIVER/GB: No significant abnormality is appreciated. PANCREAS: No significant abnormality is seen. SPLEEN: No significant abnormality is seen. ADRENALS: No significant abnormality is seen. KIDNEYS: No significant abnormality is seen. REPRODUCTIVE ORGANS: Patient is post hysterectomy, left ovary shows a normal appearance, right ovary thought to be normal BOWEL: Large amount of retained fecal debris present within the transverse colon. The appendix is no rmal. FREE AIR: No Free Air visible. ASCITES: None visible. PELVIC ADENOPATHY: None visualized. RETROPERITONEAL ADENOPATHY: No Retroperitoneal Adenopathy visible. URINARY BLADDER: No significant abnormality is seen. OSSEOUS STRUCTURES: No significant abnormality is seen. IMPRESSION: ENLARGING COMMON ILIAC ARTERY ANEURYSMS. POSTOP CHANGES. CORRELATE FOR FECAL STASIS.
[2017-08-29] MEDS: MEROPENEM 1 GM in SODIUM CHLORIDE 0.9% 100 ML IVPB SCH ×2 (13:54→23:43)
[2017-08-29] MEDS: ALPRAZolam 0.5 MG TAB PO PRN (13:54)
--- NOTE | 2017-08-29 14:54 | P.CRDCN ---
History of Present Illness Consult date: 08/29/17 History of present illness: Mrs. Santiago is a pleasant 67-year-old female with past medical history significant for COPD, hypertension, DVT, gastroesophageal relufx disease , coronary artery disease, abdominal aortic aneurysm with stent graft 2005 and anemia. She sees Dr. Garcia in the office. She underwent cardiac catheterization 07/2017 which revealed mid-RCA patent stent, mid-circumflex 30% disease, proximal-LAD 30-40% disease as well as 30% in the mid. She presented to the hospital 08/26 with complaints of shortness of breath, cough and congestion. She was treated with outpatient antibiotics prior to arrival with minimal relief. Blood cultures were obtained and found to be positive for viridans streptococcus, for which reason we have been consulted to perform a CAN. At the time of my exam the patient is seen sitting up in bed eating lunch. She denies chest pain, palpitations, dizziness, nausea of vomiting. She continues to have shortness of breath and cough/congestion. She states antibiotics were recently changes and she seems to be bringing up more phlegm. EKG on arrival is sinus mechanism with evidence of old septal infarct and left anterior fasicular block. This is consistent with old EKG. Laboratory data reviewed, hemoglobin 8.6, platelets 142, potassium 4.2, creatinine 0.9, INR 1.1. D-dimer elevated. Current cardiac medications include atenolol 12.5 daily. Review of Systems At the time of my exam: CONSTITUTIONAL: Denies fever. Denies chills. EYES: Denies blurred vision. Denies vision changes. Denies eye pain. EARS, NOSE, MOUTH & THROAT: Denies headache. Denies sore throat. Denies ear pain. CARDIOVASCULAR: Denies chest pain. Complains of shortness of breath. Denies orthopnea. Denies PND. Denies palpitations. RESPIRATORY: Complains of cough. GASTROINTESTINAL: Complains of abdominal pain. Denies diarrhea. Complains of constipation. Denies nausea. Denies vomiting. MUSCULOSKELETAL: Denies myalgias. INTEGUMENTARY: Denies pruitis. Denies rash. NEUROLOGIC: Denies numbness. Denies tingling. Denies weakness. PSYCHIATRIC: Denies anxiety. Denies depression. ENDOCRINE: Denies fatigue. Denies weight change. Denies polydipsia. Denies polyurina. GENITOURINARY: Denies burning, hematuria or urgency with micturation. HEMATOLOGIC: Has a history of anemia. Denies bleeding. Past Medical History Past Medical History: Asthma, Chest Pain / Angina, COPD, Deep Vein Thrombosis ( DVT), GERD/Reflux, Hypertension, Liver Disease, Myocardial Infarction ([place]), Musculoskeletal Disorder, Pneumonia, Sleep Apnea/CPAP/BIPAP, Vascular Disorder Additional Past Medical History / Comment(s): 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 amenia-iron infusons x2 Last Myocardial Infarction Date:: 06/2011 History of Any Multi-Drug Resistant Organisms: None Reported Past Surgical History: Bladder Surgery, Heart Catheterization With Stent, Hysterectomy, Orthopedic Surgery Additional Past Surgical History / Comment(s): HEART STENT 2010. AAA STENT 2005. VARICOSE VEIN STRIPPING R leg. EXP LAP. LIVER/BX, HAD RT FOOT SURGERY D/ T SALMONELLA INFECTION. R SHOULDER SCOPE. COLONOSCOPY-NORMAL. BLADDER SUSPENSIONS. Past Anesthesia/Blood Transfusion Reactions: No Reported Reaction Date of Last Stent Placement:: 2010 Smoking Status: Current every day smoker Additional Past Alcohol Use History / Comment(s): She was a smoker starting in 1956 in half to one pack per day and date she quit in June but on last admission in July she was smoking half a pack per day. No illicit drug use , and no alcohol abuse. - Past Family History Brother(s) Family Medical History: Coronary Artery Disease (CAD), Myocardial Infarction ([place] ) Father Additional Family Medical History / Comment(s): FROM CIRRHOSIS OF THE LIVER Mother Family Medical History: COPD Additional Family Medical History / Comment(s): FROM AAA, HAD HX TB Medications and Allergies Home Medications Medication Instructions Recorded Confirmed Type ALPRAZolam [Xanax] 1 mg PO TID 12/27/13 08/26/17 History Albuterol Sulfate [Ventolin HFA] 2 puff INHALATION RT-TID PRN 12/27/13 08/26/17 History Atenolol [Tenormin] 12.5 mg PO HS 12/27/13 08/26/17 History Dexlansoprazole [Dexilant] 60 mg PO DAILY 12/27/13 08/26/17 History Sucralfate [Carafate] 1 gm PO ACHS 12/27/13 08/26/17 History cycloSPORINE [Restasis] 2 drop BOTH EYES BID 12/27/13 08/26/17 History Pramipexole [Mirapex] 0.125 mg PO HS 09/12/14 08/26/17 History Tiotropium 18 Mcg/Puff [Spiriva] 1 cap INHALATION RT-HS 09/12/14 08/26/17 History Topiramate [Topamax] 50 mg PO BID 05/03/15 08/26/17 History Butalb/APAP/Caff 50-325-40Mg 0.5 tab PO Q4H PRN 02/13/17 08/26/17 History [Fioricet 50-325-40] Cholecalciferol [Vitamin D3] 1,000 unit PO DAILY 02/13/17 08/26/17 History Ipratropium-Albuterol Nebulize 3 ml INHALATION RT-QID #120 neb 02/16/17 Rx [Duoneb 0.5 mg-3 mg/3 ml Soln] Melatonin 5 mg PO HS #30 tablet 02/16/17 08/26/17 Rx DULoxetine HCL [Cymbalta] 30 mg PO DAILY 07/18/17 08/26/17 History DULoxetine HCL [Cymbalta] 60 mg PO HS 07/18/17 08/26/17 History Nicotine 14Mg/24Hr Patch [Habitrol] 1 patch TRANSDERM Q24H #30 patch 07/22/17 Rx Nitroglycerin Sl Tabs [Nitrostat] 0.4 mg SUBLINGUAL Q5M PRN #25 tab 07/22/1705/05 Rx Ciprofloxacin HCl [Cipro] 500 mg PO Q12HR 08/20/17 08/26/17 History Calcium Carbonate [Calcium] 600 mg PO BID 08/25/17 08/26/17 History Allergies Allergy/AdvReac Type Severity Reaction Status Date / Time naproxen sodium [From Aleve] Allergy Severe Anaphylaxis Verified 08/26/17 15:08 adhesive Allergy Rash/Hives Verified 08/26/17 15:08 cinnamon [Cinnamon] Allergy Dyspnea Verified 08/26/17 15:08 clindamycin Allergy Anaphylaxis Verified 08/26/17 15:08 codeine Allergy Nausea & Verified 08/26/17 15:08 Vomiting gentamicin [Gentamicin] Allergy SWELLING Verified 08/26/17 15:08 OF FACE W/ EYE DROPS paola Allergy Dyspnea Verified 08/26/17 15:21 Iodinated Contrast- Oral and Allergy VAGINAL Verified 08/29/17 09:42 IV Dye BLEEDING [Iodinated Contrast Media - AFTER IV Dye] latex Allergy Rash/Hives Verified 08/26/17 15:08 levothyroxine sodium Allergy Unknown Verified 08/26/17 15:08 [From Synthroid] montelukast sodium Allergy Wheezing Verified 08/26/17 15:08 [From Singulair] pantoprazole sodium Allergy Abdominal Verified 08/26/17 15:08 [From Protonix] Pain Penicillins Allergy Rash/Hives Verified 08/26/17 15:08 red dye Allergy Abdominal Verified 08/26/17 15:08 Pain Sulfa (Sulfonamide Allergy Swelling Verified 08/26/17 15:08 Antibiotics) IN MOUTH sulfamethoxazole Allergy swelling Verified 08/26/17 15:08 [From Bactrim] tongue trimethoprim [From Bactrim] Allergy Swelling Verified 08/26/17 15:08 venom-honey bee Allergy Dyspnea Verified 08/26/17 15:08 [bee venom (honey bee)] BANDAIDS Allergy Rash/Hives Uncoded 08/26/17 14:49 tomatoes AdvReac Abdominal Uncoded 08/26/17 18:17 Pain Physical Exam Vitals: Vital Signs Temp Pulse Pulse Resp BP Pulse Ox 08/29/17 12:18 80 08/29/17 12:08 78 18 08/29/17 09:31 67 08/29/17 09:20 67 18 97 08/29/17 07:00 98.3 F 60 12 149/67 100 08/29/17 00:00 16 08/28/17 23:00 98.3 F 99 16 134/64 96 08/28/17 20:50 78 08/28/17 20:37 80 08/28/17 16:43 80 08/28/17 16:29 78 97 08/28/17 15:00 97.9 F 107 H 18 110/51 99 Intake and Output 08/28/17 08/29/17 08/29/17 22:59 06:59 14:59 Intake Total 1660 120 100 Output Total 1 Balance 1660 120 99 Intake: IV 100 Meropenem 1 gm In Sodium 100 Chloride 0.9% 100 ml @ 200 mls/hr IVPB Q12HR [facility] Rx#:[id number] Oral 1660 120 Output: Urine 1 Other: Voiding Method Toilet Diaper # Voids 2 1 Blood pressure 149/67 heart rate 60 afebrile GENERAL: This is a 67-year-old female in no apparent distress at the time of my examination. Appears older than stated age. HEENT: Head is atraumatic, normocephalic. Pupils are equal, round. Sclerae anicteric. Conjunctivae are clear. Mucous membranes of the mouth are moist. Neck is supple. There is no jugular venous distention. No carotid bruit is heard. LUNGS: Clear to auscultation no wheezes, rales or rhonchi. No chest wall tenderness is noted on palpation or with deep breathing. Diminished. HEART: Regular rate and rhythm without murmurs, rubs or gallops. S1 and S2 heard. ABDOMEN: Soft, nontender. Bowel sounds are heard. No organomegaly noted. EXTREMITIES: 2+ peripheral pulses with no evidence of peripheral edema and no calf tenderness noted. NEUROLOGIC: Patient is awake, alert and oriented x3. Results 08/29/17 07:08 08/29/17 07:08 CBC 08/29/17 Range/Units 07:08 WBC 6.5 (3.8-10.6) k/uL RBC 3.28 L (3.80-5.40) m/uL Hgb 8.6 L D (11.4-16.0) gm/dL Hct 28.5 L (34.0-46.0) % Plt Count 142 L (150-450) k/uL Comprehensive Metabolic Panel 08/29/17 Range/Units 07:08 Sodium 145 (137-145) mmol/L Potassium 4.2 (3.5-5.1) mmol/L Chloride 113 H (98-107) mmol/L Carbon Dioxide 23 (22-30) mmol/L BUN 21 H (7-17) mg/dL Creatinine 0.99 (0.52-1.04) mg/dL Glucose 91 (74-99) mg/dL Calcium 9.4 (8.4-10.2) mg/dL Current Medications Generic Name Dose Route Start Last Admin Trade Name Freq PRN Reason Stop Dose Admin Acetaminophen/Butalbital/Caffeine 0.5 each 08/26/17 17:31 08/28/17 10:02 Fioricet 50-325-40 PO 0.5 each Q4H PRN Administration pain Albuterol Sulfate 2.5 mg 08/26/17 17:31 Ventolin Nebulized INHALATION RT-TID PRN Shortness Of Breath Albuterol/Ipratropium 3 ml 08/26/17 20:00 08/29/17 12:08 Duoneb 0.5 Mg-3 Mg/3 Ml Soln INHALATION 3 ml RT-QID [facility] Administration Alprazolam 1 mg 08/26/17 17:31 08/29/17 13:54 Xanax PO 1 mg TID PRN Administration Anxiety Aspirin 81 mg 08/28/17 09:00 08/29/17 08:58 Aspirin PO 81 mg DAILY [facility] Administration Atenolol 12.5 mg 08/26/17 21:00 08/28/17 22:14 Tenormin PO 12.5 mg HS [facility] Administration Calcium Carbonate/Glycine 500 mg 08/26/17 21:00 08/29/17 08:59 Tums PO 500 mg BID [facility] Administration Cholecalciferol 1,000 unit 08/27/17 09:00 08/29/17 08:59 Vitamin D3 PO 1,000 unit DAILY [facility] Administration Cyclosporine 2 drops 08/26/17 21:00 08/29/17 08:59 Restasis 0.05% Ophth Soln BOTH EYES 2 drops BID [facility] Administration Duloxetine HCl 30 mg 08/27/17 09:00 08/29/17 09:01 Cymbalta PO 30 mg DAILY [facility] Administration Duloxetine HCl 60 mg 08/26/17 21:00 08/28/17 21:13 Cymbalta PO 60 mg HS [facility] Administration Enoxaparin Sodium 40 mg 08/27/17 09:00 08/28/17 10:08 Lovenox SQ 40 mg DAILY [facility] Administration Heparin Sodium (Porcine) 5,000 unit 08/27/17 21:00 08/29/17 09:01 Heparin SQ 5,000 unit Q12HR [facility] Administration Meropenem 1 gm/ Sodium 100 mls @ 200 mls/hr 08/29/17 14:00 08/29/17 13:54 Chloride IVPB 200 mls/hr Q12HR [facility] Administration Vancomycin HCl 1,000 mg/ 250 mls @ 125 mls/hr 08/29/17 15:00 Sodium Chloride IVPB Q24H [facility] Insulin Aspart 0 unit 08/27/17 12:30 08/29/17 09:13 Novolog SQ Not Given ACHS [facility] Protocol Iohexol 25 ml 08/29/17 09:33 08/29/17 12:27 Omnipaque 350 Mg/Ml (For Oral Use) PO 08/30/17 09:34 25 ml Q60M PRN Administration CT Scan Melatonin 5 mg 08/26/17 21:00 08/28/17 21:13 Melatonin PO 5 mg HS [facility] Administration Miscellaneous Information 1 each 08/26/17 15:11 Pneumonia Protocol Utilized PO ONCE PRN Per Protocol Miscellaneous Information 1 each 08/29/17 09:33 Rx Info: Iv Contrast Was Given MISCELLANE 08/31/17 09:34 DAILY PRN Per Protocol Nicotine 1 patch 08/26/17 17:45 08/28/17 17:24 Habitrol 14mg/24hr Patch TRANSDERM 1 patch Q24H [facility] Administration Nitroglycerin 0.4 mg 08/26/17 17:31 Nitrostat SUBLINGUAL Q5M PRN Angina Dexilant 60mg 60 mg 08/27/17 09:00 08/29/17 09:01 PO Not Given DAILY [facility] Pramipexole Dihydrochloride 0.125 mg 08/26/17 21:00 08/28/17 21:13 Mirapex PO 0.125 mg HS [facility] Administration Pravastatin Sodium 80 mg 08/28/17 21:00 08/28/17 21:12 Pravachol PO 80 mg HS [facility] Administration Prednisone 50 mg 08/29/17 09:00 08/29/17 09:01 PO 50 mg DAILY [facility] Administration Senna/Docusate Sodium 2 each 08/29/17 09:45 08/29/17 13:50 Senokot-S PO 2 each BID [facility] Administration Sucralfate 1 gm 08/26/17 21:00 08/29/17 13:49 Carafate PO 1 gm ACHS [facility] Administration Topiramate 50 mg 08/26/17 21:00 08/29/17 09:01 Topamax PO 50 mg BID [facility] Administration Trazodone HCl 50 mg 08/28/17 18:00 08/28/17 17:23 Desyrel PO 50 mg 1800 [facility] Administration Intake and Output 08/28/17 08/29/17 08/29/17 22:59 06:59 14:59 Intake Total 1660 120 100 Output Total 1 Balance 1660 120 99 Intake: IV 100 Meropenem 1 gm In Sodium 100 Chloride 0.9% 100 ml @ 200 mls/hr IVPB Q12HR [facility] Rx#:[id number] Oral 1660 120 Output: Urine 1 Other: Voiding Method Toilet Diaper # Voids 2 1 08/29/17 07:08 08/29/17 07:08 Assessment and Plan Assessment: ASSESSMENT 1. Strep viridans septicemia rule out infective endocarditis 2. Chronic stable coronary artery disease 3. COPD 4. Abdominal aortic aneurysm status post repair 5. Essential hypertension PLAN Patient should be nothing by mouth after midnight Friday for CAN Friday with Dr. Garcia. This has been explained to the patient and questions have been answered appropriately. She is agreeable to move forward with procedure. Nurse Practitioner note has been reviewed, I agree with a documented findings and plan of care. Patient was seen and examined.
[2017-08-29] MEDS: VANCOMYCIN 1,000 MG in SODIUM CHLORIDE 0.9% 250 ML IVPB SCH (15:54)
[2017-08-29 17:58] LABS: Glucose,Whole Blood 139 mg/dL (75-99)
[2017-08-29] MEDS: traZODone HCL 50 MG TAB PO SCH (18:27)
[2017-08-29] MEDS: NICOTINE 14MG/24HR PATCH TRANSDERM SCH (18:27)
[2017-08-29] MEDS: BUTALB/APAP/CAFF 50-325-40MG TAB PO PRN (20:02)
[2017-08-29] MEDS: PRAMIPEXOLE 0.125 MG TAB PO SCH (20:05)
[2017-08-29] MEDS: DULoxetine HCL 60 MG CAPSULE.DR PO SCH (20:05)
[2017-08-29] MEDS: PRAVASTATIN SODIUM 80 MG TAB PO SCH (20:05)
[2017-08-29 20:55] LABS: Glucose,Whole Blood 162 mg/dL (75-99)
[2017-08-29] MEDS: ATENOLOL 12.5 MG TAB PO SCH (21:21)
[2017-08-29] MEDS: MELATONIN 5 MG TABLET PO SCH (21:22)
--- NOTE | 2017-08-29 22:30 | P.CON ---
Consult Note - . Consult date: 08/29/17 Assessment/Plan:: This is a 67-year-old female with past medical history of hepatitis C post the Harvoni therapy with history of CAD COPD asthma and previous history of DVT along with Takosubu syndrome who was hospitalized at [facility] in April 2016 for GI bleed with slight drop in hemoglobin was treated and did well ended up being discharged home. In January 2017, she had an admission for acute COPD exacerbation and acute bronchitis. Hospitalization July 18, 2017, for non-ST elevated myocardial infarction status post heart cath and patent stent in the RCA with heavily calcified right and left coronary systems and recommendations to maximize medical treatment. Patient states that she has been on antibiotics in the outpatient setting as well as oxygen [id number] at 2 L nasal cannula versus at nighttime only. She does state that she stopped smoking in July on a nicotine patch. She is complaining of wheezing and clear thick sputum production. She states she is not getting better with antibiotics. She does complain of leg cramping when she stands up and has to walk to get the cramping to improve. She denies any edema. He does have history of dissection at the right groin when she underwent heart catheterization was subsequently done from right radial approach. She presents to [facility] emergency center. No leukocytosis, hemoglobin 10.5, afebrile. EKG was a sinus rhythm. Chest x-ray shows chronic emphysematous changes without acute pulmonary process. D Dimer was elevated at 6 and on previous admission D-dimer was elevated at 5 and she underwent a CTA of the chest that was negative for pulmonary embolism. There is moderately severe pulmonary emphysema, pulmonary interstitial fibrosis, pleural and pulmonary scarring and calcification at the lung apices. No significant change from prior exam. Atheromatous aorta. He underwent ultrasound duplex of the right lower extremity that was negative for DVT. Repeat chest x-ray shows chronic emphysematous changes without acute pulmonary process. CAT scan of the lumbar spine showed multilevel degenerative changes in the lumbar spine with no significant change from November 2016. No obvious large disc herniation difficult for patients right-sided radiculopathy symptoms. Patient was admitted to the [facility] floor and started on nebulizer treatments, azithromycin, ceftriaxone, Solu-Medrol and consult with pulmonary medicine, Dr. Naylor. Patient has been transitioned over to oral prednisone. She was complaining of headache with significant pain at the right episcopalian. CRP and sed rate were normal. Initial blood culture returned positive for viridans streptococcus group. Repeat blood culture from August 27 showing no growth after 24 hours. Patient does complain of her gums hurting and unable to wear her dentures. She had all her teeth removed in 2013. Pulmonary medicine is changed ceftriaxone to Levaquin. ACN has been requested to be done by cardiology and is scheduled for Friday with Dr. Garcia. There is a CAT scan of the abdomen and pelvis with contrast ordered for right sided abdominal pain. Patient has been afebrile since admission. Sputum culture has been ordered. Please see the consult note is dictated by nurse practitioner Mrs. Coby Joaquin. As noted this patient is a very complex history. Recent interventions are noted. There is evidence of the limited bilateral iliac artery aneurysms. Patient is evidence of bacteremia. Concerns to endocarditis or endovascular infection. CAN is to be done on Friday. Streptococcus viridans is isolated. She is completely edentulous. Antimicrobial therapy with vancomycin and meropenem have been started given the significant resistance pattern of the Streptococcus viridans. Follow up cultures to evaluate for clearance of the bacteremia. I agree with evaluation, assessment and plan as dictated by nurse practitioner Mrs. Coby Joaquin.
[2017-08-30] MEDS: SUCRALFATE 1 GM TAB PO SCH ×4 (07:53→20:23)
[2017-08-30 08:06] LABS: Glucose,Whole Blood 110 mg/dL (75-99)
[2017-08-30] MEDS: INSULIN ASPART 100 UNIT/ML 1 ML 10 ML VIAL SQ SCH ×4 (08:16→20:41)
[2017-08-30] MEDS: IPRATROPIUM-ALBUTEROL 3 ML NEB INHALATION SCH ×4 (08:17→19:11)
[2017-08-30] MEDS: HEPARIN SODIUM,PORCINE 5,000 UNIT/ML 1 ML VIAL SQ SCH ×2 (08:52→20:23)
[2017-08-30] MEDS: TOPIRAMATE 25 MG TAB PO SCH ×2 (08:53→20:24)
[2017-08-30] MEDS: ASPIRIN 81 MG PO SCH (08:53)
[2017-08-30] MEDS: predniSONE 50 MG TAB PO SCH (08:53)
[2017-08-30] MEDS: SENNOSIDES-DOCUSATE SODIUM 1 EACH TAB PO SCH ×2 (08:53→20:23)
[2017-08-30] MEDS: CHOLECALCIFEROL 1,000 UNIT TAB PO SCH (08:53)
[2017-08-30] MEDS: CALCIUM CARBONATE 500 MG CHEWABLE PO SCH ×2 (08:53→20:24)
[2017-08-30] MEDS: DULoxetine HCL 30 MG CAPSULE.DR PO SCH (08:53)
[2017-08-30] MEDS: ENOXAPARIN 40 MG/0.4 ML SYRINGE SQ SCH (08:54)
[2017-08-30] MEDS: cycloSPORINE 0.05% OPHTH 0.4 ML DROPERETTE BOTH EYES SCH ×2 (08:54→20:23)
[2017-08-30] MEDS: DEXILANT 60MG PO SCH (08:54)
[2017-08-30] MEDS: BUTALB/APAP/CAFF 50-325-40MG TAB PO PRN (09:01)
[2017-08-30] MEDS: ALPRAZolam 0.5 MG TAB PO PRN (09:01)
[2017-08-30] MEDS: MEROPENEM 1 GM in SODIUM CHLORIDE 0.9% 100 ML IVPB SCH ×2 (09:01→21:35)
--- NOTE | 2017-08-30 10:54 | P.PN ---
Subjective Progress Note Date: 08/30/17 This is a 66-year-old female one of Dr. Colbert patient with past medical history of hepatitis C post the Harvoni therapy with history of CAD COPD asthma and previous history of DVT along with Takosubu syndrome who was hospitalized at [facility] in April 2016 for GI bleed with slight drop in hemoglobin was treated and did well ended up being discharged home. In January 2017, she had an admission for acute COPD exacerbation and acute bronchitis. He said hospitalization July 18 for non-ST elevated myocardial infarction status post heart cath patent stent in the RCA with heavily calcified right and left coronary systems and recommendations to maximize medical treatment. Patient dissection at the right groin when she underwent heart catheterization was subsequently done from right radial approach.. Patient states that she has been on antibiotics in the outpatient setting as well as oxygen [id number] at 2 L nasal cannula versus at nighttime only. She does state that she stopped smoking in July on a nicotine patch. She is complaining of wheezing and clear thick sputum production. She states she is not getting better with antibiotics. She does complain of leg cramping when she stands up and has to walk to get the cramping to improve. She denies any edema. 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 She states that she was post have an ultrasound done of the area but she was late for appointment and it was canceled. She presents to [facility] emergency center. No leukocytosis, hemoglobin 10.5, afebrile. EKG was a sinus rhythm. Chest x-ray shows chronic emphysematous changes without acute pulmonary process. A dime or was elevated at 6 and on previous admission D-dimer was elevated at 5 and she underwent a CTA of the chest that was negative for pulmonary embolism. There is moderately severe pulmonary emphysema, pulmonary interstitial fibrosis, pleural and pulmonary scarring and calcification at the lung apices. No significant change from prior exam. Atheromatous aorta. Patient was admitted to the MedSurg floor and started on nebulizer treatments, azithromycin, ceftriaxone, Solu-Medrol and consult with pulmonary medicine. 08/28: Patient states that she is not sleeping. Trazodone added to be given at supper time. She is complaining of headache with no significant pain at the right yarsanism. CRP and sed rate ordered. 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 Anticipate discharge home tomorrow. Patient does give history that she was on atorvastatin and was unable to tolerate it and pravastatin ordered. Aspirin also was resumed yesterday. 08/29: Initial blood culture returned positive for viridans streptococcus group. Repeat blood culture from August 27 showing no growth after 24 hours. Patient does complain of her gums hurting and unable to wear her dentures. She had all her teeth removed in 2013. Pulmonary medicine is changed ceftriaxone to Levaquin. Consult has been added for Dr. Islas. CAN has been requested to be done by cardiology. Patient's breathing status is improving not quite back to her baseline. Pulse ox is 96% with oxygen at 3 L nasal cannula. She has been afebrile. Patient did start prednisone this morning. She is complaining of mid right abdominal pain and tenderness for which a CAT scan of the abdomen and pelvis with contrast has been ordered noted patient has ALLERGY listed in with vaginal bleeding. Vaginal bleeding is not a direct result of contrast. Patient understands this and no premedication as necessary. Patient does have postmenopausal bleeding for which she follows with Dr. Lopez but has been noncompliant and did not make her last appointment. No active vaginal bleeding at this time. 08/30: CAT scan of the abdomen and pelvis and yesterday revealed enlarging common iliac artery aneurysm. Correlate for fecal stasis. Consult was admitted for Dr. Islas and he has recommended vancomycin and meropenem for endovascular infection and possible endocarditis less likely due to the streptococcus viridans bacteremia. Patient states she is still not had a bowel movement despite Senokot twice daily and MiraLAX will be added. She also complains of heartburn and Pepcid added. Objective - Vital Signs Vital signs: Vital Signs Temp 98.7 F 08/30/17 07:00 Pulse 70 08/30/17 08:29 Resp 18 08/30/17 08:00 BP 127/58 08/30/17 07:00 Pulse Ox 99 08/30/17 08:20 Intake & Output 08/29/17 08/30/17 08/30/17 18:59 06:59 18:59 Intake Total 100 100 240 Output Total 1 Balance 99 100 240 Weight 51.71 kg Intake: IV 100 100 Meropenem 1 gm In Sodium 100 100 Chloride 0.9% 100 ml @ 200 mls/hr IVPB Q12HR [facility] Rx#:[id number] Oral 240 Output: Urine 1 Other: Voiding Method Toilet Toilet Toilet Diaper Diaper Diaper # Voids 1 - Exam General appearance: mild distress, thin - EENT Eyes: anicteric sclerae, EOMI, PERRLA, no ptosis, no scleral icterus, normal appearance ENT: hard of hearing, NA/AT, normal oropharynx, no thrush Ears: bilateral: normal - Neck Neck: no lymphadenopathy, normal ROM, no rigidity, no stridor, no thyromegaly Carotids: bilateral: upstroke delayed Thyroid: bilateral: normal size - Respiratory Respiratory: bilateral: diminished, prolonged expiration, negative: dullness, rales, rhonchi, wheezing, - Cardiovascular Rhythm: regular Heart sounds: normal: S1, S2 Abnormal Heart Sounds: systolic murmur, no S3 Gallop, no S4 Gallop, no click - Gastrointestinal General gastrointestinal: normal bowel sounds, soft, no splenomegaly, no tenderness, no umbilical hernia, no ventral hernia - Integumentary Integumentary: normal, normal turgor - Neurologic Neurologic: CNII-XII intact - Musculoskeletal Musculoskeletal: generalized weakness, strength equal bilaterally - Psychiatric Psychiatric: A&O x's 3, appropriate affect, intact judgment & insight - Labs CBC & Chem 7: 08/29/17 07:08 08/29/17 07:08 Labs: Abnormal Lab Results - Last 24 Hours (Table) 08/29/17 08/29/17 08/29/17 Range/Units 12:27 17:57 20:44 POC Glucose (mg/dL) 123 H 139 H 162 H (75-99) mg/dL 08/30/17 Range/Units 07:37 POC Glucose (mg/dL) 110 H (75-99) mg/dL Microbiology - Last 24 Hours (Table) 08/27/17 10:34 Blood Culture - Preliminary Blood No Growth after 48 hours 08/27/17 08:48 Gram Stain - Final Sputum Sputum Culture - Final 08/26/17 15:20 Blood Culture Gram Stain - Final Blood Blood Culture - Final Viridans streptococcus group Assessment and Plan Plan: 1. Acute COPD exacerbation and acute tracheobronchitis with chronic hypoxic respiratory failure. Continue azithromycin and Levaquin, DuoNeb treatments 4 times daily and albuterol as needed, Solu-Medrol to prednisone. 2. Viridans strep bacteremia secondary to endovascular infection, possible endocarditis. Repeat blood cultures showing no growth after 24 hours. Consult placed with Dr[address] Islas and he has recommended meropenem and vancomycin. Consult with cardiology for CAN scheduled for Friday with Dr. Garcia. 3. Recent non-ST elevated myocardial infarction status post heart catheterization finding patent stent in the RCA and heavily calcified right and left coronary systems in July 2017. Atenolol, aspirin 81 mg orally once every day, Lipitor 40 mg. Note: patient has not been taking aspirin or Lipitor at home--she was unable to tolerate Lipitor at home. Pravastatin started. 4. Peripheral vascular disease. Arterial studies of the lower extremities. 5. Chronic back pain. CAT scan of the lumbar spine ordered. 6. Chronic anemia of chronic disease. 7. PUD. We will start the patient on Carafate 1 g orally 4 times every day. 8. Hep C S/P Harvoni therapy. 9. Hyperlipidemia. Lipitor. 10. Abdominal aortic aneurysm S/P endovascular stent. 11. Chronic tobacco use and dependence. Smoking cessation and counseling an increased risk of CAD, CVA, and malignancy. Patient on nicotine patch. 12. Migraine Headache. Continue Topamax 50 mg orally twice every day as well as Fioricet half a pill every 4 hours as needed. 13. Hypertension and hypertensive cardiovascular disease. Continue atenolol 12.5 mg orally once every day. 14. Restless leg syndrome. Continue Mirapex 0.125 mg orally at bedtime. 15. Obstructive sleep apnea. Stable. 16. Depression, recurrent. Continue Cymbalta 30 mg in the morning and 60 minute gram of the time. 17. Overactive bladder. Continue oxybutynin 5 mg orally twice every day. 18. DVT prophylaxis. Heparin subcu. 19. GI prophylaxis. Carafate. Pepcid added 20. Headache with pain and tenderness most significant at the right temporal. CRP and sed rate ordered to rule out temporal arteritis. 21. Postmenopausal vaginal bleeding. Patient has been encouraged to follow-up with Dr. Lopez as an outpatient. 22. Right-sided abdominal pain secondary to constipation. Continue Senokot twice daily and MiraLAX added daily. Discharge plan: Return home with [facility] Impression and plan of care have been directed as dictated by the signing physician. Coby Joaquin nurse practitioner acting as scribe for signing physician.
[2017-08-30] MEDS: POLYETHYLENE GLYCOL 3350 17 GM POWD.PACK PO SCH (11:25)
[2017-08-30] MEDS: FAMOTIDINE 20 MG TAB PO SCH (11:25)
[2017-08-30 11:26] LABS: Glucose,Whole Blood 104 mg/dL (75-99)
--- NOTE | 2017-08-30 11:44 | P.PN ---
Subjective Progress Note Date: 08/30/17 Principal diagnosis: Acute exacerbation of COPD, tracheobronchitis, positive strep viridans bacteremiaLinnette Skelton is a 67-year-old female patient who follows with Dr. Petersen for her history of COPD, presented to the ER on 08/26/2017 at 1400 with complaints of shortness of breath, cough, wheezing, chills. She states she has been sick since June, was recently hospitalized in July for non-ST elevated [place]. She had a heart catheterization on 07/21/2017, which revealed heavily calcified right and left coronary systems, patent stent in the RCA, mild disease involving the left circumflex, and mild disease in the proximal and mid LAD. Recommendation was made to maximize medical treatment. Since then patient had been on outpatient course of antibiotics, and oxygen at 2 L per nasal cannula. She has stopped smoking in July, is currently on a nicotine patch. She reports no improvement with antibiotics, complaining of ongoing wheezing, and production of thick clear sputum. On admission there was no evidence of leukocytosis, patient was afebrile. EKG showed normal sinus rhythm. Chest x- ray showed chronic emphysematous changes without any evidence of acute pulmonary process. D-dimer on admission was found to be elevated at 6, ultrasound Doppler of the right leg was negative for DVT. She had a CTA chest done in July 2017 which showed no evidence of pulmonary embolism. Patient was started on empiric antibiotics, and Rocephin, Zithromax, IV steroids, nebulized treatments, and admitted to the hospital for further treatment. On 08/28/2017 patient seen again on medical surgical floor, and proving, but not back to her baseline yet. Still becomes short of breath with exertion, currently on room air, with O2 sat 96%. Afebrile, vital signs are stable, lung sounds generally diminished, no rhonchi, no wheezing. Blood culture from 2017 was positive for Streptococcus species, patient is covered with Rocephin and Zithromax. Await final cultures. Follow-up culture on 08/27/2017 showed no growth. Patient's Solu-Medrol was switched over to prednisone, continue the rest of the medical treatments and nebulizer treatments. On 08/29/2017 patient seen in follow-up. Blood culture from 08/26/2017 was positive for Streptococcus viridans group, resistant to azithromycin and Rocephin, the patient is currently on. Follow-up blood cultures from 2017 shows no growth at the 24-hour augusta. Sputum culture shows no growth. Afebrile, vital signs are stable, remains on 3 L per nasal cannula with O2 sat 97%. Lung sounds are diminished, no wheezes or rhonchi auscultated. Still has a persistent cough with production of white sputum. Complaining of some lower abdominal discomfort, nonspecific, complains of being constipated over last few days, but no nausea, no vomiting. Patient is scheduled for CT dominant pelvis with and without contrast, ID service was consulted. Cardiology was consulted with concerns of endocarditis related to bacteremia. Patient was reevaluated today on 08/30/2017, seen already by different consultants including infectious disease, and including cardiology, yesterday I have changed her antibiotics to vancomycin and Merrem, and they remained basically the same for what seems to be a resistant pattern of Streptococcus viridans. Workup to look into the possibility of endocarditis and the possibility of the source of her Streptococcus viridans is still nondiagnostic. Patient is scheduled to undergo CAN on Friday. In the meantime she is tolerating the antibiotics given to her quite well. Pulmonary-cartagena she is doing well, hardly any cough no wheezing no shortness of breath. WBC count today is 6.5 hemoglobin is 8.6 electrolytes and renal profile are normal. Objective - Vital Signs Vital signs: Vital Signs Temp 98.7 F 08/30/17 07:00 Pulse 70 08/30/17 08:29 Resp 18 08/30/17 08:00 BP 127/58 08/30/17 07:00 Pulse Ox 99 08/30/17 08:20 Intake & Output 08/29/17 08/30/17 08/30/17 18:59 06:59 18:59 Intake Total 100 100 240 Output Total 1 Balance 99 100 240 Weight 51.71 kg Intake: IV 100 100 Meropenem 1 gm In Sodium 100 100 Chloride 0.9% 100 ml @ 200 mls/hr IVPB Q12HR [facility] Rx#:[id number] Oral 240 Output: Urine 1 Other: Voiding Method Toilet Toilet Toilet Diaper Diaper Diaper # Voids 1 - Exam GENERAL EXAM: Alert, active, comfortable in no apparent distress. HEAD: Normocephalic/atraumatic. EYES: Normal reaction of pupils, equal size. Conjunctiva pink, sclera white. NOSE: Clear with pink turbinates. THROAT: No erythema or exudates. NECK: No masses, no JVD, no thyroid enlargement, no adenopathy. CHEST: No chest wall deformity. Symmetrical expansion. LUNGS: Equal air entry with no crackles, wheeze,no rhonchi CVS: Regular rate and rhythm, normal S1 and S2, no gallops, no murmurs, no rubs ABDOMEN: Soft, slightly tender to palpation in the left lower and right lower quadrant. No hepatosplenomegaly, normal bowel sounds, no guarding or rigidity. EXTREMITIES: No clubbing, no edema, no cyanosis, 2+ pulses and upper and lower extremities. MUSCULOSKELETAL: Muscle strength and tone normal. SPINE: No scoliosis or deformity SKIN: No rashes CENTRAL NERVOUS SYSTEM: Alert and oriented -3. No focal deficits, tone is normal in all 4 extremities. PSYCHIATRIC: Alert and oriented -3. Appropriate affect. Intact judgment and insight. - Labs CBC & Chem 7: 08/29/17 07:08 08/29/17 07:08 Labs: Abnormal Lab Results - Last 24 Hours (Table) 08/29/17 08/29/17 08/29/17 Range/Units 12:27 17:57 20:44 POC Glucose (mg/dL) 123 H 139 H 162 H (75-99) mg/dL 08/30/17 08/30/17 Range/Units 07:37 11:11 POC Glucose (mg/dL) 110 H 104 H (75-99) mg/dL Microbiology - Last 24 Hours (Table) 08/27/17 10:34 Blood Culture - Preliminary Blood No Growth after 48 hours 08/27/17 08:48 Gram Stain - Final Sputum Sputum Culture - Final 08/26/17 15:20 Blood Culture Gram Stain - Final Blood Blood Culture - Final Viridans streptococcus group Assessment and Plan Assessment: #1. Acute COPD exacerbation with tracheobronchitis, chest x-ray and 08/27/2017 shows chronic emphysematous changes, without acute pulmonary process #2. Chronic hypoxic respiratory failure, secondary to COPD #3. Recent non-ST elevated [place] in July 2017 #4. Coronary artery disease #5. Nicotine dependence, currently in remission #6. Chronic anemia of chronic disease #7. Chronic hepatitis C, status post Harvoni therapy #8. Hyperlipidemia #9. History of abdominal aortic aneurysm with repair #10. Hypertension Recommendation: Continue bronchodilators, antibiotics for Streptococcus viridans , she is presently on Merrem and vancomycin. Further workup including CAN will be done on Friday, patient may eventually require a PICC line placement and long -term treatment with antibiotics on outpatient basis. Time with Patient: Less than 30
[2017-08-30] MEDS: VANCOMYCIN 1,000 MG in SODIUM CHLORIDE 0.9% 250 ML IVPB SCH (15:31)
[2017-08-30] MEDS: NICOTINE 14MG/24HR PATCH TRANSDERM SCH (17:37)
[2017-08-30] MEDS: traZODone HCL 50 MG TAB PO SCH (17:37)
[2017-08-30] MEDS: DULoxetine HCL 60 MG CAPSULE.DR PO SCH (20:23)
[2017-08-30] MEDS: MELATONIN 5 MG TABLET PO SCH (20:23)
[2017-08-30] MEDS: PRAMIPEXOLE 0.125 MG TAB PO SCH (20:23)
[2017-08-30] MEDS: ATENOLOL 12.5 MG TAB PO SCH (20:23)
[2017-08-30] MEDS: PRAVASTATIN SODIUM 80 MG TAB PO SCH (20:24)
[2017-08-30 20:41] LABS: Glucose,Whole Blood 111 mg/dL (75-99)
--- NOTE | 2017-08-30 21:11 | P.PN ---
Subjective Progress Note Date: 08/30/17 Principal diagnosis: sepsis This is a 67-year-old female with past medical history of hepatitis C post the Harvoni therapy with history of CAD COPD asthma and previous history of DVT along with Takosubu syndrome who was hospitalized at [facility] in April 2016 for GI bleed with slight drop in hemoglobin was treated and did well ended up being discharged home. In January 2017, she had an admission for acute COPD exacerbation and acute bronchitis. Hospitalization July 18, 2017, for non-ST elevated myocardial infarction status post heart cath and patent stent in the RCA with heavily calcified right and left coronary systems and recommendations to maximize medical treatment. Patient states that she has been on antibiotics in the outpatient setting as well as oxygen [id number] at 2 L nasal cannula versus at nighttime only. She does state that she stopped smoking in July on a nicotine patch. She is complaining of wheezing and clear thick sputum production. She states she is not getting better with antibiotics. She does complain of leg cramping when she stands up and has to walk to get the cramping to improve. She denies any edema. He does have history of dissection at the right groin when she underwent heart catheterization was subsequently done from right radial approach. She presents to [facility] emergency center. No leukocytosis, hemoglobin 10.5, afebrile. EKG was a sinus rhythm. Chest x-ray shows chronic emphysematous changes without acute pulmonary process. D Dimer was elevated at 6 and on previous admission D-dimer was elevated at 5 and she underwent a CTA of the chest that was negative for pulmonary embolism. There is moderately severe pulmonary emphysema, pulmonary interstitial fibrosis, pleural and pulmonary scarring and calcification at the lung apices. No significant change from prior exam. Atheromatous aorta. He underwent ultrasound duplex of the right lower extremity that was negative for DVT. Repeat chest x-ray shows chronic emphysematous changes without acute pulmonary process. CAT scan of the lumbar spine showed multilevel degenerative changes in the lumbar spine with no significant change from November 2016. No obvious large disc herniation difficult for patients right-sided radiculopathy symptoms. Patient was admitted to the MedSur floor and started on nebulizer treatments, azithromycin, ceftriaxone, Solu-Medrol and consult with pulmonary medicine, Dr. Naylor. Patient has been transitioned over to oral prednisone. She was complaining of headache with significant pain at the right amish. CRP and sed rate were normal. Initial blood culture returned positive for viridans streptococcus group. Repeat blood culture from August 27 showing no growth after 24 hours. Patient does complain of her gums hurting and unable to wear her dentures. She had all her teeth removed in 2013. Pulmonary medicine is changed ceftriaxone to Levaquin. CAN has been requested to be done by cardiology and is scheduled for Friday with Dr. Garcia. There is a CAT scan of the abdomen and pelvis with contrast ordered for right sided abdominal pain. Patient has been afebrile since admission. Sputum culture has been ordered. Patient is feeling slightly better today. As has noted there is positive blood cultures with Streptococcus viridans. Objective - Vital Signs Vital signs: Vital Signs Temp 97.7 F 08/30/17 15:00 Pulse 78 08/30/17 20:22 Resp 18 08/30/17 20:22 BP 117/58 08/30/17 20:22 Pulse Ox 97 08/30/17 20:22 Intake & Output 08/30/17 08/30/17 08/31/17 06:59 18:59 06:59 Intake Total 100 1500 Balance 100 1500 Weight 51.71 kg Intake: IV 100 100 Meropenem 1 gm In Sodium 100 100 Chloride 0.9% 100 ml @ 200 mls/hr IVPB Q12HR [facility] Rx#:[id number] Oral 1400 Other: Voiding Method Toilet Toilet Diaper Diaper # Voids 1 - Exam Gen: This is a thin 67-year-old female in mild respiratory distress with talking. HEENT: Head is atraumatic, normocephalic. Pupils equal, round. Sclerae is anicteric. Conjunctiva pink. NECK: Supple. No JVD. No lymphadenopathy. No thyromegaly. LUNGS: Few scattered wheezes and rhonchi. No intercostal retractions. HEART: Regular rate and rhythm. Audible S1 and S2, soft S4 2/6 systolic murmur left sternal border that radiates to the axilla is noted. ABDOMEN: Soft. Bowel sounds are present. No masses. Tenderness to the right mid abdomen. No CVA tenderness EXTREMITIES: No pedal edema. No calf tenderness. Dorsalis pedis +2 bilaterally. NEUROLOGICAL: Patient is awake, alert and oriented x3 - Labs CBC & Chem 7: 08/29/17 07:08 08/29/17 07:08 Labs: Abnormal Lab Results - Last 24 Hours (Table) 08/30/17 08/30/17 08/30/17 Range/Units 07:37 11:11 20:39 POC Glucose (mg/dL) 110 H 104 H 111 H (75-99) mg/dL Microbiology - Last 24 Hours (Table) 08/27/17 10:34 Blood Culture - Preliminary Blood No Growth after 72 hours Laboratory Results WBC 6.5 k/uL (3.8-10.6) 08/29/17 07:08 RBC 3.28 m/uL (3.80-5.40) L 08/29/17 07:08 Hgb 8.6 gm/dL (11.4-16.0) L D 08/29/17 07:08 Hct 28.5 % (34.0-46.0) L 08/29/17 07:08 MCV 86.9 fL (80.0-100.0) 08/29/17 07:08 MCH 26.2 pg (25.0-35.0) 08/29/17 07:08 MCHC 30.1 g/dL (31.0-37.0) L 08/29/17 07:08 RDW 21.0 % (11.5-15.5) H 08/29/17 07:08 Plt Count 142 k/uL (150-450) L 08/29/17 07:08 Neutrophils % 64 % 08/26/17 15:20 Lymphocytes % 21 % 08/26/17 15:20 Monocytes % 4 % 08/26/17 15:20 Eosinophils % 10 % 08/26/17 15:20 Basophils % 0 % 08/26/17 15:20 Neutrophils # 5.0 k/uL (1.3-7.7) 08/26/17 15:20 Lymphocytes # 1.6 k/uL (1.0-4.8) 08/26/17 15:20 Monocytes # 0.3 k/uL (0-1.0) 08/26/17 15:20 Eosinophils # 0.8 k/uL (0-0.7) H 08/26/17 15:20 Basophils # 0.0 k/uL (0-0.2) 08/26/17 15:20 Hypochromasia Moderate 08/29/17 07:08 Anisocytosis Moderate 08/29/17 07:08 Macrocytosis Slight 08/26/17 15:20 ESR 8 mm/hr (0-20) 08/28/17 14:30 PT 10.4 sec (9.0-12.0) 08/26/17 15:20 INR 1.1 (<1.2) 08/26/17 15:20 APTT 22.6 sec (22.0-30.0) 08/26/17 15:20 D-Dimer 6.09 mg/L FEU (<0.60) H 08/27/17 10:34 Sodium 145 mmol/L (137-145) 08/29/17 07:08 Potassium 4.2 mmol/L (3.5-5.1) 08/29/17 07:08 Chloride 113 mmol/L (98-107) H 08/29/17 07:08 Carbon Dioxide 23 mmol/L (22-30) 08/29/17 07:08 Anion Gap 9 mmol/L 08/29/17 07:08 BUN 21 mg/dL (7-17) H 08/29/17 07:08 Creatinine 0.99 mg/dL (0.52-1.04) 08/29/17 07:08 Est GFR (MDRD) Af Amer >60 (>60 ml/min/1.73 sqM) 08/29/17 07:08 Est GFR (MDRD) Non-Af 56 (>60 ml/min/1.73 sqM) 08/29/17 07:08 Glucose 91 mg/dL (74-99) 08/29/17 07:08 POC Glucose (mg/dL) 111 mg/dL (75-99) H 08/30/17 20:39 POC Glu Braiding Machine Operator ID Brittni Alas 08/30/17 20:[address] Glu mg/dL 103 08/27/17 10:34 Hemoglobin A1c 5.2 % (4.0-6.0) 08/27/17 10:34 Calcium 9.4 mg/dL (8.4-10.2) 08/29/17 07:08 Magnesium 1.9 mg/dL (1.6-2.3) 08/26/17 15:20 Total Bilirubin 0.3 mg/dL (0.2-1.3) 08/26/17 15:20 AST 27 U/L (14-36) 08/26/17 15:20 ALT 27 U/L (9-52) 08/26/17 15:20 Alkaline Phosphatase 62 U/L (38-126) 08/26/17 15:20 Total Creatine Kinase 75 U/L (30-135) 08/26/17 15:20 CK-MB (CK-2) 2.2 ng/mL (0.0-2.4) 08/26/17 15:20 CK-MB (CK-2) Rel Index 2.9 08/26/17 15:20 Troponin I <0.012 ng/mL (0.000-0.034) 08/26/17 15:20 C-Reactive Protein 5.1 mg/L (<10.0) 08/28/17 14:30 NT-Pro-B Natriuret Pep 431 pg/mL 08/26/17 15:20 Total Protein 7.6 g/dL (6.3-8.2) 08/26/17 15:20 Albumin 4.6 g/dL (3.5-5.0) 08/26/17 15:20 Microbiology 08/27/17 10:34 Blood Blood Culture - Preliminary No Growth after 72 hours 08/27/17 08:48 Sputum Gram Stain - Final 08/27/17 08:48 Sputum Sputum Culture - Final 08/26/17 15:20 Blood Blood Culture Gram Stain - Final 08/26/17 15:20 Blood Blood Culture - Final Viridans streptococcus group 08/26/17 15:20 Blood Blood Culture - Final Assessment and Plan (1) Infection by Streptococcus, viridans group Narrative/Plan: As noted this patient is a very complex history. Recent interventions are noted. There is evidence of the limited bilateral iliac artery aneurysms. Patient is evidence of bacteremia. Concerns to endocarditis or endovascular infection. CAN is to be done on Friday. Streptococcus viridans is isolated. She is completely edentulous. Antimicrobial therapy with vancomycin and meropenem have been started given the significant resistance pattern of the Streptococcus viridans. She is feeling slightly better today. Follow blood cultures are negative so far. Await the CAN to finalize plans of the outpatient intravenous antibiotic therapy which likely will be with vancomycin if possible. Current Visit: Yes Status: Acute Code(s): A49.1 - STREPTOCOCCAL INFECTION, UNSPECIFIED SITE SNOMED Code(s): 44147376 (2) Fever Current Visit: Yes Status: Acute Code(s): R50.9 - FEVER, UNSPECIFIED SNOMED Code(s): 504818807 (3) Gram-positive bacteremia Current Visit: Yes Status: Acute Code(s): R78.81 - BACTEREMIA SNOMED Code( s): 032796318767
[2017-08-30] MEDS: PANTOPRAZOLE 40 MG/10 ML VIAL IVP SCH (21:49)
[2017-08-31] MEDS: BUTALB/APAP/CAFF 50-325-40MG TAB PO PRN (00:26)
[2017-08-31] MEDS: ALPRAZolam 0.5 MG TAB PO PRN ×2 (00:33→17:46)
[2017-08-31] MEDS: IPRATROPIUM-ALBUTEROL 3 ML NEB INHALATION SCH ×4 (07:18→19:19)
[2017-08-31 07:39] LABS: Glucose,Whole Blood 87 mg/dL (75-99)
[2017-08-31] MEDS: INSULIN ASPART 100 UNIT/ML 1 ML 10 ML VIAL SQ SCH ×4 (07:56→21:03)
[2017-08-31] MEDS: SUCRALFATE 1 GM TAB PO SCH ×4 (07:58→21:05)
[2017-08-31] MEDS: CALCIUM CARBONATE 500 MG CHEWABLE PO SCH (08:00)
[2017-08-31] MEDS: DEXILANT 60MG PO SCH (08:01)
[2017-08-31 08:15] LABS: Anion Gap 5 mmol/L; Blood Urea Nitrogen 22 mg/dL (7-17); Calcium 9.9 mg/dL (8.4-10.2); Carbon Dioxide 27 mmol/L (22-30); Chloride 112 mmol/L (98-107); Glucose 88 mg/dL (74-99); Sodium 144 mmol/L (137-145)
[2017-08-31] MEDS: MEROPENEM 1 GM in SODIUM CHLORIDE 0.9% 100 ML IVPB SCH ×2 (09:36→19:53)
[2017-08-31] MEDS: FAMOTIDINE 20 MG TAB PO SCH (09:47)
[2017-08-31] MEDS: predniSONE 50 MG TAB PO SCH (09:47)
[2017-08-31] MEDS: ENOXAPARIN 40 MG/0.4 ML SYRINGE SQ SCH (09:47)
[2017-08-31] MEDS: TOPIRAMATE 25 MG TAB PO SCH ×2 (09:48→21:06)
[2017-08-31] MEDS: PANTOPRAZOLE 40 MG/10 ML VIAL IVP SCH ×2 (09:48→21:04)
[2017-08-31] MEDS: ASPIRIN 81 MG PO SCH (09:49)
[2017-08-31] MEDS: CHOLECALCIFEROL 1,000 UNIT TAB PO SCH (09:49)
[2017-08-31] MEDS: cycloSPORINE 0.05% OPHTH 0.4 ML DROPERETTE BOTH EYES SCH ×2 (09:49→21:04)
[2017-08-31] MEDS: DULoxetine HCL 30 MG CAPSULE.DR PO SCH (09:50)
[2017-08-31] MEDS: POLYETHYLENE GLYCOL 3350 17 GM POWD.PACK PO SCH (09:50)
[2017-08-31] MEDS: SENNOSIDES-DOCUSATE SODIUM 1 EACH TAB PO SCH ×2 (09:50→21:03)
[2017-08-31] MEDS: guaiFENesin 600 MG TABLET.ER PO SCH ×2 (10:05→21:04)
[2017-08-31] MEDS: HEPARIN SODIUM,PORCINE 5,000 UNIT/ML 1 ML VIAL SQ SCH ×2 (10:38→21:03)
--- NOTE | 2017-08-31 12:01 | P.PN ---
Subjective Progress Note Date: 08/31/17 This is a 66-year-old female one of Dr. Colbert patient with past medical history of hepatitis C post the Harvoni therapy with history of CAD COPD asthma and previous history of DVT along with Takosubu syndrome who was hospitalized at [facility] in April 2016 for GI bleed with slight drop in hemoglobin was treated and did well ended up being discharged home. In January 2017, she had an admission for acute COPD exacerbation and acute bronchitis. He said hospitalization July 18 for non-ST elevated myocardial infarction status post heart cath patent stent in the RCA with heavily calcified right and left coronary systems and recommendations to maximize medical treatment. Patient had dissection at the right groin when she underwent heart catheterization was subsequently done from right radial approach.. Patient states that she has been on antibiotics in the outpatient setting as well as oxygen [id number] at 2 L nasal cannula versus at nighttime only. She does state that she stopped smoking in July on a nicotine patch. She is complaining of wheezing and clear thick sputum production. She states she is not getting better with antibiotics. She does complain of leg cramping when she stands up and has to walk to get the cramping to improve. She denies any edema. 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 She states that she was post have an ultrasound done of the area but she was late for appointment and it was canceled. She presents to [facility] emergency center. No leukocytosis, hemoglobin 10.5, afebrile. EKG was a sinus rhythm. Chest x-ray shows chronic emphysematous changes without acute pulmonary process. A dime or was elevated at 6 and on previous admission D-dimer was elevated at 5 and she underwent a CTA of the chest that was negative for pulmonary embolism. There is moderately severe pulmonary emphysema, pulmonary interstitial fibrosis, pleural and pulmonary scarring and calcification at the lung apices. No significant change from prior exam. Atheromatous aorta. Patient was admitted to the MedSurg floor and started on nebulizer treatments, azithromycin, ceftriaxone, Solu-Medrol and consult with pulmonary medicine. 08/28: Patient states that she is not sleeping. Trazodone added to be given at supper time. She is complaining of headache with no significant pain at the right scientologist. CRP and sed rate ordered. Solu-Medrol will be decreased and change management facilitator to prednisone in the morning. Anticipate discharge home tomorrow. Patient does give history that she was on atorvastatin and was unable to tolerate it and pravastatin ordered. Aspirin also was resumed yesterday. 08/29: Initial blood culture returned positive for viridans streptococcus group. Repeat blood culture from August 27 showing no growth after 24 hours. Patient does complain of her gums hurting and unable to wear her dentures. She had all her teeth removed in 2013. Pulmonary medicine is changed ceftriaxone to Levaquin. Consult has been added for Dr. Islas. CAN has been requested to be done by cardiology. Patient's breathing status is improving not quite back to her baseline. Pulse ox is 96% with oxygen at 3 L nasal cannula. She has been afebrile. Patient did start prednisone this morning. She is complaining of mid right abdominal pain and tenderness for which a CAT scan of the abdomen and pelvis with contrast has been ordered noted patient has ALLERGY listed in with vaginal bleeding. Vaginal bleeding is not a direct result of contrast. Patient understands this and no premedication as necessary. Patient does have postmenopausal bleeding for which she follows with Dr. Lopez but has been noncompliant and did not make her last appointment. No active vaginal bleeding at this time. 08/30: CAT scan of the abdomen and pelvis and yesterday revealed enlarging common iliac artery aneurysm. Correlate for fecal stasis. Consult was admitted for Dr. Islas and he has recommended vancomycin and meropenem for endovascular infection and possible endocarditis less likely due to the streptococcus viridans bacteremia. Patient states she is still not had a bowel movement despite Senokot twice daily and MiraLAX will be added. She also complains of heartburn and Pepcid added. 08/31: Patient is complaining of more cough today and not feeling well. Mucinex is been added. Patient encouraged to get out of bed and ambulate. She is currently on humidified oxygen. She has been afebrile. Repeat blood cultures are showing no growth and patient will be scheduled for PICC line placement tomorrow. Patient is rescheduled for CAN tomorrow with Dr. Garcia. Objective - Vital Signs Vital signs: Vital Signs Temp 97.8 F 08/31/17 07:00 Pulse 65 08/31/17 07:28 Resp 22 08/31/17 07:00 BP 187/77 08/31/17 07:00 Pulse Ox 97 08/31/17 07:20 Intake & Output 08/30/17 08/31/17 08/31/17 18:59 06:59 18:59 Intake Total 1500 450 Output Total 1 Balance 1500 449 Weight 51.71 kg Intake: IV 100 100 Meropenem 1 gm In Sodium 100 100 Chloride 0.9% 100 ml @ 200 mls/hr IVPB Q12HR [facility] Rx#:[id number] Oral 1400 350 Output: Urine 1 Other: Voiding Method Toilet Toilet Diaper Diaper # Voids 1 - Exam General appearance: mild distress, thin - EENT Eyes: anicteric sclerae, EOMI, PERRLA, no ptosis, no scleral icterus, normal appearance ENT: hard of hearing, NA/AT, normal oropharynx, no thrush Ears: bilateral: normal - Neck Neck: no lymphadenopathy, normal ROM, no rigidity, no stridor, no thyromegaly Carotids: bilateral: upstroke delayed Thyroid: bilateral: normal size - Respiratory Respiratory: bilateral: diminished, prolonged expiration, negative: dullness, rales, rhonchi, wheezing, - Cardiovascular Rhythm: regular Heart sounds: normal: S1, S2 Abnormal Heart Sounds: systolic murmur, no S3 Gallop, no S4 Gallop, no click - Gastrointestinal General gastrointestinal: normal bowel sounds, soft, no splenomegaly, no tenderness, no umbilical hernia, no ventral hernia - Integumentary Integumentary: normal, normal turgor - Neurologic Neurologic: CNII-XII intact - Musculoskeletal Musculoskeletal: generalized weakness, strength equal bilaterally - Psychiatric Psychiatric: A&O x's 3, appropriate affect, intact judgment & insight - Labs CBC & Chem 7: 08/29/17 07:08 08/31/17 07:11 Labs: Abnormal Lab Results - Last 24 Hours (Table) 08/30/17 08/30/17 08/31/17 Range/Units 11:11 20:39 07:11 Chloride 112 H (98-107) mmol/L BUN 22 H (7-17) mg/dL POC Glucose (mg/dL) 104 H 111 H (75-99) mg/dL Microbiology - Last 24 Hours (Table) 08/30/17 07:26 Blood Culture - Preliminary Blood No Growth after 24 hours 08/30/17 08:23 Gram Stain - Preliminary Sputum 08/27/17 10:34 Blood Culture - Preliminary Blood No Growth after 72 hours Assessment and Plan Plan: 1. Acute COPD exacerbation and acute tracheobronchitis with chronic hypoxic respiratory failure. Continue azithromycin and Levaquin, DuoNeb treatments 4 times daily and albuterol as needed, Solu-Medrol to prednisone. Mucinex added. Patient is on humidified oxygen. 2. Viridans strep bacteremia secondary to endovascular infection, possible endocarditis. Repeat blood cultures showing no growth after 24 hours. Consult placed with Dr. Islas and he has recommended meropenem and vancomycin. Consult with cardiology for CAN scheduled for Friday with Dr. Garcia. Katharina ordered for Friday 3. Recent non-ST elevated myocardial infarction status post heart catheterization finding patent stent in the RCA and heavily calcified right and left coronary systems in July 2017. Atenolol, aspirin 81 mg orally once every day, Lipitor 40 mg. Note: patient has not been taking aspirin or Lipitor at home--she was unable to tolerate Lipitor at home. Pravastatin started. 4. Peripheral vascular disease. Arterial studies of the lower extremities. 5. Chronic back pain. CAT scan of the lumbar spine ordered. 6. Chronic anemia of chronic disease. 7. PUD. We will start the patient on Carafate 1 g orally 4 times every day. 8. Hep C S/P Harvoni therapy. 9. Hyperlipidemia. Lipitor. 10. Abdominal aortic aneurysm S/P endovascular stent. 11. Chronic tobacco use and dependence. Smoking cessation and counseling an increased risk of CAD, CVA, and malignancy. Patient on nicotine patch. 12. Migraine Headache. Continue Topamax 50 mg orally twice every day as well as Fioricet half a pill every 4 hours as needed. 13. Hypertension and hypertensive cardiovascular disease. Continue atenolol 12.5 mg orally once every day. 14. Restless leg syndrome. Continue Mirapex 0.125 mg orally at bedtime. 15. Obstructive sleep apnea. Stable. 16. Depression, recurrent. Continue Cymbalta 30 mg in the morning and 60 minute gram of the time. 17. Overactive bladder. Continue oxybutynin 5 mg orally twice every day. 18. DVT prophylaxis. Heparin subcu. 19. GI prophylaxis. Carafate. Pepcid added 20. Headache with pain and tenderness most significant at the right temporal. CRP and sed rate ordered to rule out temporal arteritis. 21. Postmenopausal vaginal bleeding. Patient has been encouraged to follow-up with Dr. Lopez as an outpatient. 22. Right-sided abdominal pain secondary to constipation. Continue Senokot twice daily and MiraLAX added daily. Discharge plan: Return home with [facility] Impression and plan of care have been directed as dictated by the signing physician. Coby Joaquin nurse practitioner acting as scribe for signing physician.
[2017-08-31 12:03] LABS: Glucose,Whole Blood 96 mg/dL (75-99)
--- NOTE | 2017-08-31 12:14 | P.PN ---
Subjective Progress Note Date: 08/31/17 Principal diagnosis: Acute exacerbation of COPD, tracheobronchitis, positive strep viridans bacteremiaLinnette Skelton is a 67-year-old female patient who follows with Dr. Petersen for her history of COPD, presented to the ER on 08/26/2017 at 1400 with complaints of shortness of breath, cough, wheezing, chills. She states she has been sick since June, was recently hospitalized in July for non-ST elevated [place]. She had a heart catheterization on 07/21/2017, which revealed heavily calcified right and left coronary systems, patent stent in the RCA, mild disease involving the left circumflex, and mild disease in the proximal and mid LAD. Recommendation was made to maximize medical treatment. Since then patient had been on outpatient course of antibiotics, and oxygen at 2 L per nasal cannula. She has stopped smoking in July, is currently on a nicotine patch. She reports no improvement with antibiotics, complaining of ongoing wheezing, and production of thick clear sputum. On admission there was no evidence of leukocytosis, patient was afebrile. EKG showed normal sinus rhythm. Chest x- ray showed chronic emphysematous changes without any evidence of acute pulmonary process. D-dimer on admission was found to be elevated at 6, ultrasound Doppler of the right leg was negative for DVT. She had a CTA chest done in July 2017 which showed no evidence of pulmonary embolism. Patient was started on empiric antibiotics, and Rocephin, Zithromax, IV steroids, nebulized treatments, and admitted to the hospital for further treatment. On 08/28/2017 patient seen again on medical surgical floor, and proving, but not back to her baseline yet. Still becomes short of breath with exertion, currently on room air, with O2 sat 96%. Afebrile, vital signs are stable, lung sounds generally diminished, no rhonchi, no wheezing. Blood culture from 2017 was positive for Streptococcus species, patient is covered with Rocephin and Zithromax. Await final cultures. Follow-up culture on 08/27/2017 showed no growth. Patient's Solu-Medrol was switched over to prednisone, continue the rest of the medical treatments and nebulizer treatments. On 08/29/2017 patient seen in follow-up. Blood culture from 08/26/2017 was positive for Streptococcus viridans group, resistant to azithromycin and Rocephin, the patient is currently on. Follow-up blood cultures from 2017 shows no growth at the 24-hour augusta. Sputum culture shows no growth. Afebrile, vital signs are stable, remains on 3 L per nasal cannula with O2 sat 97%. Lung sounds are diminished, no wheezes or rhonchi auscultated. Still has a persistent cough with production of white sputum. Complaining of some lower abdominal discomfort, nonspecific, complains of being constipated over last few days, but no nausea, no vomiting. Patient is scheduled for CT dominant pelvis with and without contrast, ID service was consulted. Cardiology was consulted with concerns of endocarditis related to bacteremia. Patient was reevaluated today on 08/30/2017, seen already by different consultants including infectious disease, and including cardiology, yesterday I have changed her antibiotics to vancomycin and Merrem, and they remained basically the same for what seems to be a resistant pattern of Streptococcus viridans. Workup to look into the possibility of endocarditis and the possibility of the source of her Streptococcus viridans is still nondiagnostic. Patient is scheduled to undergo CAN on Friday. In the meantime she is tolerating the antibiotics given to her quite well. Pulmonary-[place]agena she is doing well, hardly any cough no wheezing no shortness of breath. WBC count today is 6.5 hemoglobin is 8.6 electrolytes and renal profile are normal. Reevaluated today on 08/31/2017, patient is about the same, feeling well from the pulmonary perspective, hardly any cough no wheezing no shortness of breath. Patient is basically waiting for full cardiac workup including CAN to be done tomorrow.repeat blood cultures since 08/26/2017, have been negative so far. Patient remains on antibiotics for bacteremia secondary to Streptococcus viridans. Objective - Vital Signs Vital signs: Vital Signs Temp 97.8 F 08/31/17 07:00 Pulse 70 08/31/17 11:17 Resp 22 08/31/17 08:00 BP 187/77 08/31/17 07:00 Pulse Ox 97 08/31/17 07:20 Intake & Output 08/30/17 08/31/17 08/31/17 18:59 06:59 18:59 Intake Total 1500 450 400 Output Total 1 Balance 1500 449 400 Weight 51.71 kg 51.71 kg Intake: IV 100 100 Meropenem 1 gm In Sodium 100 100 Chloride 0.9% 100 ml @ 200 mls/hr IVPB Q12HR [facility] Rx#:[id number] Oral 1400 350 400 Output: Urine 1 Other: Voiding Method Toilet Toilet Toilet Diaper Diaper Diaper # Voids 1 # Bowel Movements 1 - Exam GENERAL EXAM: Alert, active, comfortable in no apparent distress. HEAD: Normocephalic/atraumatic. EYES: Normal reaction of pupils, equal size. Conjunctiva pink, sclera white. NOSE: Clear with pink turbinates. THROAT: No erythema or exudates. NECK: No masses, no JVD, no thyroid enlargement, no adenopathy. CHEST: No chest wall deformity. Symmetrical expansion. LUNGS: Equal air entry with no crackles, wheeze,no rhonchi CVS: Regular rate and rhythm, normal S1 and S2, no gallops, no murmurs, no rubs ABDOMEN: Soft, slightly tender to palpation in the left lower and right lower quadrant. No hepatosplenomegaly, normal bowel sounds, no guarding or rigidity. EXTREMITIES: No clubbing, no edema, no cyanosis, 2+ pulses and upper and lower extremities. MUSCULOSKELETAL: Muscle strength and tone normal. SPINE: No scoliosis or deformity SKIN: No rashes CENTRAL NERVOUS SYSTEM: Alert and oriented -3. No focal deficits, tone is normal in all 4 extremities. PSYCHIATRIC: Alert and oriented -3. Appropriate affect. Intact judgment and insight. - Labs CBC & Chem 7: 08/29/17 07:08 08/31/17 07:11 Labs: Abnormal Lab Results - Last 24 Hours (Table) 08/30/17 08/31/17 Range/Units 20:39 07:11 Chloride 112 H (98-107) mmol/L BUN 22 H (7-17) mg/dL POC Glucose (mg/dL) 111 H (75-99) mg/dL Microbiology - Last 24 Hours (Table) 08/30/17 08:23 Gram Stain - Preliminary Sputum Sputum Culture - Preliminary 08/30/17 07:02 Blood Culture - Preliminary Blood No Growth after 24 hours 08/30/17 07:26 Blood Culture - Preliminary Blood No Growth after 24 hours 08/27/17 10:34 Blood Culture - Preliminary Blood No Growth after 72 hours Assessment and Plan Assessment: #1. Acute COPD exacerbation with tracheobronchitis, chest x-ray and 08/27/2017 shows chronic emphysematous changes, without acute pulmonary process #2. Chronic hypoxic respiratory failure, secondary to COPD #3. Recent non-ST elevated NJ in July 2017 #4. Coronary artery disease #5. Nicotine dependence, currently in remission #6. Chronic anemia of chronic disease #7. Chronic hepatitis C, status post Harvoni therapy #8. Hyperlipidemia #9. History of abdominal aortic aneurysm with repair #10. Hypertension Recommendation: Continue bronchodilators, antibiotics for Streptococcus viridans , she is presently on Merrem and vancomycin. Further workup including CAN will be done on Friday, patient may eventually require a PICC line placement and long -term treatment with antibiotics on outpatient basis. Time with Patient: Less than 30
[2017-08-31] MEDS: VANCOMYCIN 1,000 MG in SODIUM CHLORIDE 0.9% 250 ML IVPB SCH (14:36)
[2017-08-31 17:37] LABS: Glucose,Whole Blood 144 mg/dL (75-99)
[2017-08-31] MEDS: traZODone HCL 50 MG TAB PO SCH (17:40)
[2017-08-31] MEDS: NICOTINE 14MG/24HR PATCH TRANSDERM SCH (17:40)
[2017-08-31 20:31] LABS: Glucose,Whole Blood 150 mg/dL (75-99)
[2017-08-31] MEDS: MELATONIN 5 MG TABLET PO SCH (21:01)
[2017-08-31] MEDS: ATENOLOL 12.5 MG TAB PO SCH (21:03)
[2017-08-31] MEDS: DULoxetine HCL 60 MG CAPSULE.DR PO SCH (21:04)
[2017-08-31] MEDS: PRAVASTATIN SODIUM 80 MG TAB PO SCH (21:05)
[2017-08-31] MEDS: PRAMIPEXOLE 0.125 MG TAB PO SCH (21:05)
[2017-09-01] MEDS: CALCIUM CARBONATE 500 MG CHEWABLE PO SCH ×3 (00:06→20:47)
[2017-09-01] MEDS: BUTALB/APAP/CAFF 50-325-40MG TAB PO PRN (01:51)
[2017-09-01 07:05] LABS: Glucose,Whole Blood 87 mg/dL (75-99)
[2017-09-01] MEDS: INSULIN ASPART 100 UNIT/ML 1 ML 10 ML VIAL SQ SCH ×4 (07:12→20:50)
[2017-09-01] MEDS: SUCRALFATE 1 GM TAB PO SCH ×4 (07:19→20:49)
[2017-09-01] MEDS: IPRATROPIUM-ALBUTEROL 3 ML NEB INHALATION SCH ×4 (07:35→19:33)
[2017-09-01 07:41] LABS: Anisocytosis Moderate; HCT 29.9 % (34.0-46.0); HGB 9.1 gm/dL (11.4-16.0); Hypochromasia Marked; MCH 26.8 pg (25.0-35.0); MCHC 30.5 g/dL (31.0-37.0); MCV 87.9 fL (80.0-100.0); Mean Platelet Volume 7.9; Platelet Count 136 k/uL (150-450); RDW 20.5 % (11.5-15.5); WBC 7.5 k/uL (3.8-10.6)
[2017-09-01 08:02] LABS: Anion Gap 6 mmol/L; Blood Urea Nitrogen 18 mg/dL (7-17); Calcium 9.4 mg/dL (8.4-10.2); Carbon Dioxide 27 mmol/L (22-30); Chloride 110 mmol/L (98-107); Glucose 82 mg/dL (74-99); Potassium 3.7 mmol/L (3.5-5.1); Sodium 143 mmol/L (137-145)
[2017-09-01] MEDS: PANTOPRAZOLE 40 MG/10 ML VIAL IVP SCH ×2 (08:27→20:48)
[2017-09-01] MEDS: MEROPENEM 1 GM in SODIUM CHLORIDE 0.9% 100 ML IVPB SCH (08:27)
[2017-09-01] MEDS: cycloSPORINE 0.05% OPHTH 0.4 ML DROPERETTE BOTH EYES SCH ×2 (08:28→20:47)
[2017-09-01] MEDS: CHOLECALCIFEROL 1,000 UNIT TAB PO SCH (08:28)
[2017-09-01] MEDS: POLYETHYLENE GLYCOL 3350 17 GM POWD.PACK PO SCH (08:28)
[2017-09-01] MEDS: FAMOTIDINE 20 MG TAB PO SCH (08:29)
[2017-09-01] MEDS: TOPIRAMATE 25 MG TAB PO SCH ×2 (08:30→20:49)
[2017-09-01] MEDS: predniSONE 50 MG TAB PO SCH (08:30)
[2017-09-01] MEDS: SENNOSIDES-DOCUSATE SODIUM 1 EACH TAB PO SCH ×2 (08:31→20:49)
[2017-09-01] MEDS: guaiFENesin 600 MG TABLET.ER PO SCH ×2 (08:31→20:48)
[2017-09-01] MEDS: ASPIRIN 81 MG PO SCH (08:34)
[2017-09-01] MEDS: DULoxetine HCL 30 MG CAPSULE.DR PO SCH (08:35)
[2017-09-01] MEDS: HEPARIN SODIUM,PORCINE 5,000 UNIT/ML 1 ML VIAL SQ SCH ×2 (08:37→20:51)
[2017-09-01] MEDS: ENOXAPARIN 40 MG/0.4 ML SYRINGE SQ SCH (08:37)
[2017-09-01] MEDS: DEXILANT 60MG PO SCH (08:46)
[2017-09-01] MEDS ORDERED: LIDOCAINE 2% (PF) 20 MG/ML 10 ML AMP SQ ONE (09:47)
--- NOTE | 2017-09-01 10:06 | IR ---
PICC LINE PLACEMENT: HISTORY: Infection requiring long-term antibiotic therapy PROCEDURE: Ultrasound and fluoroscopic guidance of PICC line placement. COMPLICATIONS: None ANESTHESIA: 1. 1% Lidocaine locally. FINDINGS/TECHNIQUE: The procedure was explained to the patient. The risks, complications, benefits and alternatives were discussed and any questions were answered. Informed consent was obtained. The patient was placed supine on the fluoroscopic table and prepped and draped in the usual sterile fash ion. Utilizing a 21 gauge needle and sonographic and fluoroscopic guidance, access in the vein was achieved and there is placement of a 0.018 guidewire. The vein is patent. A 5-Fr sheath was placed over the guidewire. The guidewire and dilator were removed and a 5-F. Double lumen PICC line was pl aced through the sheath with the tip at the level of the SVC. The sheath was removed, the catheter w as flushed and sutured into position. The patient was stable throughout the procedure and remained s table upon discharge from the Department of Radiology. The vein puncture was patent under ultrasound. A mckeon scale image was obtained to document patency of the vein punctured. All elements of the maximal barrier technique were utilized. FLUOROSCOPY TIME: 0.5 minutes, one image submitted. IMPRESSION: Successful PICC double lumen line placement under ultrasound and fluoroscopic guidance.
[2017-09-01] MEDS ORDERED: IV FLUID CONTINUATION 1,000 ML IV ONE (12:02)
[2017-09-01] MEDS ORDERED: BENZOCAINE SPRAY 1 CAN MUCOUS MEM ONE (12:08)
[2017-09-01] MEDS ORDERED: MIDAZOLAM 2 MG/2 ML VIAL IV ONE (12:29)
[2017-09-01] MEDS ORDERED: fentaNYL (PF) 50 MCG/ML 2 ML AMP IV ONE (12:29)
--- NOTE | 2017-09-01 13:14 | ECHOT ---
TRANSESOPHAGEAL ECHOCARDIOGRAM This transesophageal echocardiogram was performed to rule out any endocarditis. Patient had one blood culture positive for Strep viridans. The patient was given intravenous sedation with Versed and fentanyl and transesophageal echocardiogram was performed without any complications. Left ventricular chamber is normal in size with normal left ventricular systolic functions. Mitral valve morphology is normal. It is mildly thickened. Mild mitral regurgitation is noted. The aortic valve is mildly thickened. There is no evidence of vegetations on mitral, aortic or tricuspid valve. Interatrial septum is intact. There is no evidence of any PFO. Left atrium is moderately enlarged. Left atrial appendage is normal. There is no evidence of any thrombus. There is evidence of diffuse atherosclerotic plaque noted in the descending thoracic aorta as well as in ascending thoracic aorta. FINAL IMPRESSION: 1. There is mild thickening of the aortic and mitral leaflet noted. There is no definite evidence of any vegetations on mitral, aortic or tricuspid valve. 2. There is mild mitral regurgitation noted. 3. Left ventricular systolic function is normal. 4. Interatrial septum is intact. There is no evidence of any patent foramen ovale. 5. There is no evidence of thrombus in left atrial appendage. 6. There is a diffuse arthrosclerotic plaque noted in descending and ascending thoracic aorta. MMODL / IJN: [id number] /
[2017-09-01 13:17] LABS: Glucose,Whole Blood 135 mg/dL (75-99)
[2017-09-01] MEDS: SODIUM CHLORIDE 0.9% 1,000 ML IV SCH (13:51)
[2017-09-01] MEDS ORDERED: VANCOMYCIN TROUGH DUE 1 EACH MISC MISCELLANE ONE (14:00)
[2017-09-01] MEDS: ALPRAZolam 0.5 MG TAB PO PRN (14:27)
--- NOTE | 2017-09-01 14:32 | P.PN ---
Subjective Progress Note Date: 09/01/17 This is a 66-year-old female one of Dr. Colbert patient with past medical history of hepatitis C post the Harvoni therapy with history of CAD COPD asthma and previous history of DVT along with Takosubu syndrome who was hospitalized at [facility] in April 2016 for GI bleed with slight drop in hemoglobin was treated and did well ended up being discharged home. In January 2017, she had an admission for acute COPD exacerbation and acute bronchitis. He said hospitalization July 18 for non-ST elevated myocardial infarction status post heart cath patent stent in the RCA with heavily calcified right and left coronary systems and recommendations to maximize medical treatment. Patient had dissection at the right groin when she underwent heart catheterization was subsequently done from right radial approach.. Patient states that she has been on antibiotics in the outpatient setting as well as oxygen [id number] at 2 L nasal cannula versus at nighttime only. She does state that she stopped smoking in July on a nicotine patch. She is complaining of wheezing and clear thick sputum production. She states she is not getting better with antibiotics. She does complain of leg cramping when she stands up and has to walk to get the cramping to improve. She denies any edema. 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 She states that she was post have an ultrasound done of the area but she was late for appointment and it was canceled. She presents to [facility] emergency center. No leukocytosis, hemoglobin 10.5, afebrile. EKG was a sinus rhythm. Chest x-ray shows chronic emphysematous changes without acute pulmonary process. A dime or was elevated at 6 and on previous admission D-dimer was elevated at 5 and she underwent a CTA of the chest that was negative for pulmonary embolism. There is moderately severe pulmonary emphysema, pulmonary interstitial fibrosis, pleural and pulmonary scarring and calcification at the lung apices. No significant change from prior exam. Atheromatous aorta. Patient was admitted to the MedSurg floor and started on nebulizer treatments, azithromycin, ceftriaxone, Solu-Medrol and consult with pulmonary medicine. 08/28: Patient states that she is not sleeping. Trazodone added to be given at supper time. She is complaining of headache with no significant pain at the right jewish. CRP and sed rate ordered. Solu-Medrol will be decreased and filter changer to prednisone in the morning. Anticipate discharge home tomorrow. Patient does give history that she was on atorvastatin and was unable to tolerate it and pravastatin ordered. Aspirin also was resumed yesterday. 08/29: Initial blood culture returned positive for viridans streptococcus group. Repeat blood culture from August 27 showing no growth after 24 hours. Patient does complain of her gums hurting and unable to wear her dentures. She had all her teeth removed in 2013. Pulmonary medicine is changed ceftriaxone to Levaquin. Consult has been added for Dr. Islas. CAN has been requested to be done by cardiology. Patient's breathing status is improving not quite back to her baseline. Pulse ox is 96% with oxygen at 3 L nasal cannula. She has been afebrile. Patient did start prednisone this morning. She is complaining of mid right abdominal pain and tenderness for which a CAT scan of the abdomen and pelvis with contrast has been ordered noted patient has ALLERGY listed in with vaginal bleeding. Vaginal bleeding is not a direct result of contrast. Patient understands this and no premedication as necessary. Patient does have postmenopausal bleeding for which she follows with Dr. Lopez but has been noncompliant and did not make her last appointment. No active vaginal bleeding at this time. 08/30: CAT scan of the abdomen and pelvis and yesterday revealed enlarging common iliac artery aneurysm. Correlate for fecal stasis. Consult was admitted for Dr. Islas and he has recommended vancomycin and meropenem for endovascular infection and possible endocarditis less likely due to the streptococcus viridans bacteremia. Patient states she is still not had a bowel movement despite Senokot twice daily and MiraLAX will be added. She also complains of heartburn and Pepcid added. 08/31: Patient is complaining of more cough today and not feeling well. Mucinex is been added. Patient encouraged to get out of bed and ambulate. She is currently on humidified oxygen. She has been afebrile. Repeat blood cultures are showing no growth and patient will be scheduled for PICC line placement tomorrow. Patient is rescheduled for CAN tomorrow with Dr. Garcia. 09/01: PICC line was placed this morning. CAN reveals mild thickening of the aortic and mitral leaflet. No definite evidence of any vegetation on mitral, aortic or tricuspid valve. Mild mitral regurgitation. Left ventricular systolic function is normal. Intra-atrial septum intact. No evidence of thrombus in the left atrial appendage. Diffuse atherosclerotic plaque noted in the descending and ascending thoracic aorta. Dr. Islas is planning on vancomycin for 4 weeks. franchise development manager is trying to make arrangements for IV antibiotics. Objective - Vital Signs Vital signs: Vital Signs Temp 99.1 F 09/01/17 07:00 Pulse 72 09/01/17 11:13 Resp 16 09/01/17 07:00 BP 173/73 09/01/17 07:00 Pulse Ox 100 09/01/17 07:00 Intake & Output 08/31/17 09/01/17 09/01/17 18:59 06:59 18:59 Intake Total 600 100 Output Total 1 Balance 599 100 Weight 51.71 kg Intake: IV 200 100 Meropenem 1 gm In Sodium 200 100 Chloride 0.9% 100 ml @ 200 mls/hr IVPB Q12HR [facility] Rx#:[id number] Oral 400 Output: Urine 1 Other: Voiding Method Toilet Toilet Toilet Diaper Diaper Diaper # Voids 1 1 # Bowel Movements 1 - Exam General appearance: mild distress, thin - EENT Eyes: anicteric sclerae, EOMI, PERRLA, no ptosis, no scleral icterus, normal appearance ENT: hard of hearing, NA/AT, normal oropharynx, no thrush Ears: bilateral: normal - Neck Neck: no lymphadenopathy, normal ROM, no rigidity, no stridor, no thyromegaly Carotids: bilateral: upstroke delayed Thyroid: bilateral: normal size - Respiratory Respiratory: bilateral: diminished, prolonged expiration, negative: dullness, rales, rhonchi, wheezing, - Cardiovascular Rhythm: regular Heart sounds: normal: S1, S2 Abnormal Heart Sounds: systolic murmur, no S3 Gallop, no S4 Gallop, no click - Gastrointestinal General gastrointestinal: normal bowel sounds, soft, no splenomegaly, no tenderness, no umbilical hernia, no ventral hernia - Integumentary Integumentary: normal, normal turgor - Neurologic Neurologic: CNII-XII intact - Musculoskeletal Musculoskeletal: generalized weakness, strength equal bilaterally - Psychiatric Psychiatric: A&O x's 3, appropriate affect, intact judgment & insight - Labs CBC & Chem 7: 09/01/17 07:02 09/01/17 07:02 Labs: Abnormal Lab Results - Last 24 Hours (Table) 08/31/17 08/31/17 09/01/17 Range/Units 17:31 20:30 07:02 RBC 3.40 L (3.80-5.40) m/uL Hgb 9.1 L (11.4-16.0) gm/dL Hct 29.9 L (34.0-46.0) % MCHC 30.5 L (31.0-37.0) g/dL RDW 20.5 H (11.5-15.5) % Plt Count 136 L (150-450) k/uL Chloride (98-107) mmol/L BUN (7-17) mg/dL POC Glucose (mg/dL) 144 H 150 H (75-99) mg/dL 09/01/17 Range/Units 07:02 RBC (3.80-5.40) m/uL Hgb (11.4-16.0) gm/dL Hct (34.0-46.0) % MCHC (31.0-37.0) g/dL RDW (11.5-15.5) % Plt Count (150-450) k/uL Chloride 110 H (98-107) mmol/L BUN 18 H (7-17) mg/dL POC Glucose (mg/dL) (75-99) mg/dL Microbiology - Last 24 Hours (Table) 08/30/17 07:02 Blood Culture - Preliminary Blood No Growth after 48 hours 08/30/17 08:23 Gram Stain - Final Sputum Sputum Culture - Final 08/30/17 07:26 Blood Culture - Preliminary Blood No Growth after 48 hours 08/27/17 10:34 Blood Culture - Preliminary Blood No Growth after 96 hours Assessment and Plan Plan: 1. Acute COPD exacerbation and acute tracheobronchitis with chronic hypoxic respiratory failure. Continue azithromycin and Levaquin, DuoNeb treatments 4 times daily and albuterol as needed, Solu-Medrol to prednisone. Mucinex added. Patient is on humidified oxygen. 2. Viridans strep bacteremia secondary to endovascular infection, endocarditis ruled out. Repeat blood cultures showing no growth after 24 hours. Consult placed with Dr[address] Islas and he has recommended meropenem and vancomycin. Meropenem can be discontinued. CAN as above. PICC line placed. Plan for vancomycin for 4 weeks. 3. Recent non-ST elevated myocardial infarction status post heart catheterization finding patent stent in the RCA and heavily calcified right and left coronary systems in July 2017. Atenolol, aspirin 81 mg orally once every day, Lipitor 40 mg. Note: patient has not been taking aspirin or Lipitor at home--she was unable to tolerate Lipitor at home. Pravastatin started. 4. Peripheral vascular disease. Arterial studies of the lower extremities. 5. Chronic back pain. CAT scan of the lumbar spine ordered. 6. Chronic anemia of chronic disease. 7. PUD. We will start the patient on Carafate 1 g orally 4 times every day. 8. Hep C S/P Harvoni therapy. 9. Hyperlipidemia. Lipitor. 10. Abdominal aortic aneurysm S/P endovascular stent. 11. Chronic tobacco use and dependence. Smoking cessation and counseling an increased risk of CAD, CVA, and malignancy. Patient on nicotine patch. 12. Migraine Headache. Continue Topamax 50 mg orally twice every day as well as Fioricet half a pill every 4 hours as needed. 13. Hypertension and hypertensive cardiovascular disease. Continue atenolol 12.5 mg orally once every day. 14. Restless leg syndrome. Continue Mirapex 0.125 mg orally at bedtime. 15. Obstructive sleep apnea. Stable. 16. Depression, recurrent. Continue Cymbalta 30 mg in the morning and 60 minute gram of the time. 17. Overactive bladder. Continue oxybutynin 5 mg orally twice every day. 18. DVT prophylaxis. Heparin subcu. 19. GI prophylaxis. Carafate. Pepcid added 20. Headache with pain and tenderness most significant at the right temporal. CRP and sed rate ordered to rule out temporal arteritis. 21. Postmenopausal vaginal bleeding. Patient has been encouraged to follow-up with Dr. Lopez as an outpatient. 22. Right-sided abdominal pain secondary to constipation. Continue Senokot twice daily and MiraLAX added daily. Discharge plan: Return home with [facility] Impression and plan of care have been directed as dictated by the signing physician. Coby Joaquin nurse practitioner acting as scribe for signing physician.
[2017-09-01] MEDS: VANCOMYCIN 1,000 MG in SODIUM CHLORIDE 0.9% 250 ML IVPB SCH (15:43)
--- NOTE | 2017-09-01 16:00 | P.PN ---
Subjective Progress Note Date: 09/01/17 Principal diagnosis: Acute COPD exacerbation with tracheobronchitis Nafisa is a 67-year-old female patient who follows with Dr. Petersen for her history of COPD, presented to the ER on 08/26/2017 at 1400 with complaints of shortness of breath, cough, wheezing, chills. She states she has been sick since June, was recently hospitalized in July for non-ST elevated HI. She had a heart catheterization on 07/21/2017, which revealed heavily calcified right and left coronary systems, patent stent in the RCA, mild disease involving the left circumflex, and mild disease in the proximal and mid LAD. Recommendation was made to maximize medical treatment. Since then patient had been on outpatient course of antibiotics, and oxygen at 2 L per nasal cannula. She has stopped smoking in July, is currently on a nicotine patch. She reports no improvement with antibiotics, complaining of ongoing wheezing, and production of thick clear sputum. On admission there was no evidence of leukocytosis, patient was afebrile. EKG showed normal sinus rhythm. Chest x- ray showed chronic emphysematous changes without any evidence of acute pulmonary process. D-dimer on admission was found to be elevated at 6, ultrasound Doppler of the right leg was negative for DVT. She had a CTA chest done in July 2017 which showed no evidence of pulmonary embolism. Patient was started on empiric antibiotics, and Rocephin, Zithromax, IV steroids, nebulized treatments, and admitted to the hospital for further treatment. On 08/28/2017 patient seen again on medical surgical floor, and proving, but not back to her baseline yet. Still becomes short of breath with exertion, currently on room air, with O2 sat 96%. Afebrile, vital signs are stable, lung sounds generally diminished, no rhonchi, no wheezing. Blood culture from 2017 was positive for Streptococcus species, patient is covered with Rocephin and Zithromax. Await final cultures. Follow-up culture on 08/27/2017 showed no growth. Patient's Solu-Medrol was switched over to prednisone, continue the rest of the medical treatments and nebulizer treatments. On 08/29/2017 patient seen in follow-up. Blood culture from 08/26/2017 was positive for Streptococcus viridans group, resistant to azithromycin and Rocephin, the patient is currently on. Follow-up blood cultures from 2017 shows no growth at the 24-hour [place]. Sputum culture shows no growth. Afebrile, vital signs are stable, remains on 3 L per nasal cannula with O2 sat 97%. Lung sounds are diminished, no wheezes or rhonchi auscultated. Still has a persistent cough with production of white sputum. Complaining of some lower abdominal discomfort, nonspecific, complains of being constipated over last few days, but no nausea, no vomiting. Patient is scheduled for CT dominant pelvis with and without contrast, ID service was consulted. Cardiology was consulted with concerns of endocarditis related to bacteremia. On 09/01/2017 patient seen again in follow-up. The transesophageal echocardiogram was done this morning, showed no evidence of vegetation on her valves, there is mild mitral regurgitation noted, left ventricle systolic function is normal, there is no evidence of any patent [place], anterior atrial septum is intact, there is no evidence of thrombus in the left atrial appendage. There is a diffuse atherosclerotic plaque noted in descending and ascending thoracic aorta. Had of PICC line placed today. Pulmonary standpoint , she remains stable, [place] any shortness of breath, wheezing or chest congestion. Remains on 2 L per nasal cannula with O2 sat at 97%. Afebrile, on sounds are clear, diminished at the bases, no rhonchi no wheezes auscultated. Objective - Vital Signs Vital signs: Vital Signs Temp 97.8 F 09/01/17 15:18 Pulse 70 09/01/17 15:18 Resp 18 09/01/17 15:18 BP 131/70 09/01/17 15:18 Pulse Ox 97 09/01/17 15:18 Intake & Output 08/31/17 09/01/17 09/01/17 18:59 06:59 18:59 Intake Total 600 100 210 Output Total 1 Balance 599 100 210 Weight 51.71 kg 51.71 kg Intake: IV 200 100 150 Meropenem 1 gm In Sodium 200 100 100 Chloride 0.9% 100 ml @ 200 mls/hr IVPB Q12HR [facility] Rx#:[id number] Intake, IV Titration 60 Amount Sodium Chloride 0.9% 1, 60 000 ml @ 20 mls/hr IV . Q24H [facility] Rx#:[id number] Oral 400 Output: Urine 1 Other: Voiding Method Toilet Toilet Toilet Diaper Diaper Diaper # Voids 1 1 # Bowel Movements 1 - Exam GENERAL EXAM: Alert, active, comfortable in no apparent distress. HEAD: Normocephalic/atraumatic. EYES: Normal reaction of pupils, equal size. Conjunctiva pink, sclera white. NOSE: Clear with pink turbinates. THROAT: No erythema or exudates. NECK: No masses, no JVD, no thyroid enlargement, no adenopathy. CHEST: No chest wall deformity. Symmetrical expansion. LUNGS: Equal air entry with no crackles, wheeze,no rhonchi CVS: Regular rate and rhythm, normal S1 and S2, no gallops, no murmurs, no rubs ABDOMEN: Soft, slightly tender to palpation in the left lower and right lower quadrant. No hepatosplenomegaly, normal bowel sounds, no guarding or rigidity. EXTREMITIES: No clubbing, no edema, no cyanosis, 2+ pulses and upper and lower extremities. MUSCULOSKELETAL: Muscle strength and tone normal. SPINE: No scoliosis or deformity SKIN: No rashes CENTRAL NERVOUS SYSTEM: Alert and oriented -3. No focal deficits, tone is normal in all 4 extremities. PSYCHIATRIC: Alert and oriented -3. Appropriate affect. Intact judgment and insight. - Labs CBC & Chem 7: 09/01/17 07:02 09/01/17 07:02 Labs: Abnormal Lab Results - Last 24 Hours (Table) 08/31/17 08/31/17 09/01/17 Range/Units 17:31 20:30 07:02 RBC 3.40 L (3.80-5.40) m/uL Hgb 9.1 L (11.4-16.0) gm/dL Hct 29.9 L (34.0-46.0) % MCHC 30.5 L (31.0-37.0) g/dL RDW 20.5 H (11.5-15.5) % Plt Count 136 L (150-450) k/uL Chloride (98-107) mmol/L BUN (7-17) mg/dL POC Glucose (mg/dL) 144 H 150 H (75-99) mg/dL 09/01/17 09/01/17 Range/Units 07:02 13:16 RBC (3.80-5.40) m/uL Hgb (11.4-16.0) gm/dL Hct (34.0-46.0) % MCHC (31.0-37.0) g/dL RDW (11.5-15.5) % Plt Count (150-450) k/uL Chloride 110 H (98-107) mmol/L BUN 18 H (7-17) mg/dL POC Glucose (mg/dL) 135 H (75-99) mg/dL Microbiology - Last 24 Hours (Table) 08/27/17 10:34 Blood Culture - Preliminary Blood No Growth after 120 hours 08/30/17 07:02 Blood Culture - Preliminary Blood No Growth after 48 hours 08/30/17 08:23 Gram Stain - Final Sputum Sputum Culture - Final 08/30/17 07:26 Blood Culture - Preliminary Blood No Growth after 48 hours Assessment and Plan Plan: Assessment: #1. Acute COPD exacerbation with tracheobronchitis, chest x-ray and 08/27/2017 shows chronic emphysematous changes, without acute pulmonary process #2. Chronic hypoxic respiratory failure, secondary to COPD #3. Recent non-ST elevated HI in July 2017 #4. Coronary artery disease #5. Nicotine dependence, currently in remission #6. Chronic anemia of chronic disease #7. Chronic hepatitis C, status post Harvoni therapy #8. Hyperlipidemia #9. History of abdominal aortic aneurysm with repair #10. Hypertension Plan: Remains stable from pulmonary standpoint, tingling on oral prednisone, and you DuoNeb nebulized treatments, patient received her PICC line, CAN was negative for any evidence of vegetation, septal wall defect or intra-cardiac thrombus. From our standpoint patient can be discharged to the rehab center once cleared by other consultants. I performed a history & physical examination of the patient and discussed their management with my nurse practitioner, Margaret Min. I reviewed the nurse practitioner's note and agree with the documented findings and plan of care. Lung sounds are diminished, no rhonchi, no wheezes. The findings and the impression was discussed with the patient. I attest to the documentation by the nurse practitioner. Time with Patient: Less than 30
[2017-09-01 16:42] LABS: Glucose,Whole Blood 146 mg/dL (75-99)
[2017-09-01] MEDS: traZODone HCL 50 MG TAB PO SCH (17:41)
[2017-09-01] MEDS: NICOTINE 14MG/24HR PATCH TRANSDERM SCH (17:41)
--- NOTE | 2017-09-01 20:22 | P.PN ---
Subjective Progress Note Date: 09/01/17 Principal diagnosis: sepsis This is a 67-year-old female with past medical history of hepatitis C post the Harvoni therapy with history of CAD COPD asthma and previous history of DVT along with Takosubu syndrome who was hospitalized at [facility] in April 2016 for GI bleed with slight drop in hemoglobin was treated and did well ended up being discharged home. In January 2017, she had an admission for acute COPD exacerbation and acute bronchitis. Hospitalization July 18, 2017, for non-ST elevated myocardial infarction status post heart cath and patent stent in the RCA with heavily calcified right and left coronary systems and recommendations to maximize medical treatment. Patient states that she has been on antibiotics in the outpatient setting as well as oxygen [id number] at 2 L nasal cannula versus at nighttime only. She does state that she stopped smoking in July on a nicotine patch. She is complaining of wheezing and clear thick sputum production. She states she is not getting better with antibiotics. She does complain of leg cramping when she stands up and has to walk to get the cramping to improve. She denies any edema. He does have history of dissection at the right groin when she underwent heart catheterization was subsequently done from right radial approach. She presents to [facility] emergency center. No leukocytosis, hemoglobin 10.5, afebrile. EKG was a sinus rhythm. Chest x-ray shows chronic emphysematous changes without acute pulmonary process. D Dimer was elevated at 6 and on previous admission D-dimer was elevated at 5 and she underwent a CTA of the chest that was negative for pulmonary embolism. There is moderately severe pulmonary emphysema, pulmonary interstitial fibrosis, pleural and pulmonary scarring and calcification at the lung apices. No significant change from prior exam. Atheromatous aorta. He underwent ultrasound duplex of the right lower extremity that was negative for DVT. Repeat chest x-ray shows chronic emphysematous changes without acute pulmonary process. CAT scan of the lumbar spine showed multilevel degenerative changes in the lumbar spine with no significant change from November 2016. No obvious large disc herniation difficult for patients right-sided radiculopathy symptoms. Patient was admitted to the [facility] floor and started on nebulizer treatments, azithromycin, ceftriaxone, Solu-Medrol and consult with pulmonary medicine, Dr. Naylor. Patient has been transitioned over to oral prednisone. She was complaining of headache with significant pain at the right rastafari. CRP and sed rate were normal. Initial blood culture returned positive for viridans streptococcus group. Repeat blood culture from August 27 showing no growth after 24 hours. Patient does complain of her gums hurting and unable to wear her dentures. She had all her teeth removed in 2013. Pulmonary medicine is changed ceftriaxone to Levaquin. CAN has been requested to be done by cardiology and is scheduled for Friday with Dr. Garcia. There is a CAT scan of the abdomen and pelvis with contrast ordered for right sided abdominal pain. Patient has been afebrile since admission. Sputum culture has been ordered. Patient is feeling better today. As has noted there is positive blood cultures with Streptococcus viridans. Objective - Vital Signs Vital signs: Vital Signs Temp 97.8 F 09/01/17 15: Pulse 79 09/01/17 19:47 Resp 18 09/01/17 15:18 BP 131/70 09/01/17 15:18 Pulse Ox 99 09/01/17 19:33 Intake & Output 09/01/17 09/01/17 09/02/17 06:59 18:59 06:59 Intake Total 100 210 Balance 100 210 Weight 51.71 kg Intake: IV 100 150 Meropenem 1 gm In Sodium 100 100 Chloride 0.9% 100 ml @ 200 mls/hr IVPB Q12HR [facility] Rx#:[id number] Intake, IV Titration 60 Amount Sodium Chloride 0.9% 1, 60 000 ml @ 20 mls/hr IV . Q24H [facility] Rx#:[id number] Other: Voiding Method Toilet Toilet Diaper Diaper # Voids 1 - Exam Gen: This is a thin 67-year-old female in mild respiratory distress with talking. HEENT: Head is atraumatic, normocephalic. Pupils equal, round. Sclerae is anicteric. Conjunctiva pink. NECK: Supple. No JVD. No lymphadenopathy. No thyromegaly. LUNGS: Few scattered wheezes and rhonchi. No intercostal retractions. HEART: Regular rate and rhythm. Audible S1 and S2, soft S4 2/6 systolic murmur left sternal border that radiates to the axilla is noted. ABDOMEN: Soft. Bowel sounds are present. No masses. Tenderness to the right mid abdomen. No CVA tenderness EXTREMITIES: No pedal edema. No calf tenderness. Dorsalis pedis +2 bilaterally. NEUROLOGICAL: Patient is awake, alert and oriented x3 - Labs CBC & Chem 7: 09/01/17 07:02 09/01/17 07:02 Labs: Abnormal Lab Results - Last 24 Hours (Table) 08/31/17 09/01/17 09/01/17 Range/Units 20:30 07:02 07:02 RBC 3.40 L (3.80-5.40) m/uL Hgb 9.1 L (11.4-16.0) gm/dL Hct 29.9 L (34.0-46.0) % MCHC 30.5 L (31.0-37.0) g/dL RDW 20.5 H (11.5-15.5) % Plt Count 136 L (150-450) k/uL Chloride 110 H (98-107) mmol/L BUN 18 H (7-17) mg/dL POC Glucose (mg/dL) 150 H (75-99) mg/dL 09/01/17 09/01/17 Range/Units 13:16 16:27 RBC (3.80-5.40) m/uL Hgb (11.4-16.0) gm/dL Hct (34.0-46.0) % MCHC (31.0-37.0) g/dL RDW (11.5-15.5) % Plt Count (150-450) k/uL Chloride (98-107) mmol/L BUN (7-17) mg/dL POC Glucose (mg/dL) 135 H 146 H (75-99) mg/dL Microbiology - Last 24 Hours (Table) 08/27/17 10:34 Blood Culture - Preliminary Blood No Growth after 120 hours 08/30/17 07:02 Blood Culture - Preliminary Blood No Growth after 48 hours 08/30/17 08:23 Gram Stain - Final Sputum Sputum Culture - Final 08/30/17 07:26 Blood Culture - Preliminary Blood No Growth after 48 hours Laboratory Results WBC 7.5 k/uL (3.8-10.6) 09/01/17 07:02 RBC 3.40 m/uL (3.80-5.40) L 09/01/17 07:02 Hgb 9.1 gm/dL (11.4-16.0) L 09/01/17 07:02 Hct 29.9 % (34.0-46.0) L 09/01/17 07:02 MCV 87.9 fL (80.0-100.0) 09/01/17 07:02 MCH 26.8 pg (25.0-35.0) 09/01/17 07:02 MCHC 30.5 g/dL (31.0-37.0) L 09/01/17 07:02 RDW 20.5 % (11.5-15.5) H 09/01/17 07:02 Plt Count 136 k/uL (150-450) L 09/01/17 07:02 Neutrophils % 64 % 08/26/17 15:20 Lymphocytes % 21 % 08/26/17 15:20 Monocytes % 4 % 08/26/17 15:20 Eosinophils % 10 % 08/26/17 15:20 Basophils % 0 % 08/26/17 15:20 Neutrophils # 5.0 k/uL (1.3-7.7) 08/26/17 15:20 Lymphocytes # 1.6 k/uL (1.0-4.8) 08/26/17 15:20 Monocytes # 0.3 k/uL (0-1.0) 08/26/17 15:20 Eosinophils # 0.8 k/uL (0-0.7) H 08/26/17 15:20 Basophils # 0.0 k/uL (0-0.2) 08/26/17 15:20 Hypochromasia Marked 09/01/17 07:02 Anisocytosis Moderate 09/01/17 07:02 Macrocytosis Slight 08/26/17 15:20 ESR 8 mm/hr (0-20) 08/28/17 14:30 PT 10.4 sec (9.0-12.0) 08/26/17 15:20 INR 1.1 (<1.2) 08/26/17 15:20 APTT 22.6 sec (22.0-30.0) 08/26/17 15:20 D-Dimer 6.09 mg/L FEU (<0.60) H 08/27/17 10:34 Sodium 143 mmol/L (137-145) 09/01/17 07:02 Potassium 3.7 mmol/L (3.5-5.1) 09/01/17 07:02 Chloride 110 mmol/L (98-107) H 09/01/17 07:02 Carbon Dioxide 27 mmol/L (22-30) 09/01/17 07:02 Anion Gap 6 mmol/L 09/01/17 07:02 BUN 18 mg/dL (7-17) H 09/01/17 07:02 Creatinine 0.92 mg/dL (0.52-1.04) 09/01/17 07:02 Est GFR (MDRD) Af Amer >60 (>60 ml/min/1.73 sqM) 09/01/17 07:02 Est GFR (MDRD) Non-Af >60 (>60 ml/min/1.73 sqM) 09/01/17 07:02 Glucose 82 mg/dL (74-99) 09/01/17 07:02 POC Glucose (mg/dL) 146 mg/dL (75-99) H 09/01/17 16:27 POC Glu [place] [employer] ID Bryce Gaston 09/01/17 16:[address] Glu mg/dL 103 08/27/17 10:34 Hemoglobin A1c 5.2 % (4.0-6.0) 08/27/17 10:34 Calcium 9.4 mg/dL (8.4-10.2) 09/01/17 07:02 Magnesium 1.9 mg/dL (1.6-2.3) 08/26/17 15:20 Total Bilirubin 0.3 mg/dL (0.2-1.3) 08/26/17 15:20 AST 27 U/L (14-36) 08/26/17 15:20 ALT 27 U/L (9-52) 08/26/17 15:20 Alkaline Phosphatase 62 U/L (38-126) 08/26/17 15:20 Total Creatine Kinase 75 U/L (30-135) 08/26/17 15:20 CK-MB (CK-2) 2.2 ng/mL (0.0-2.4) 08/26/17 15:20 CK-MB (CK-2) Rel Index 2.9 08/26/17 15:20 Troponin I <0.012 ng/mL (0.000-0.034) 08/26/17 15:20 C-Reactive Protein 5.1 mg/L (<10.0) 08/28/17 14:30 NT-Pro-B Natriuret Pep 431 pg/mL 08/26/17 15:20 Total Protein 7.6 g/dL (6.3-8.2) 08/26/17 15:20 Albumin 4.6 g/dL (3.5-5.0) 08/26/17 15:20 Vancomycin Trough 11.0 ug/mL 09/01/17 14:13 Microbiology 08/27/17 10:34 Blood Blood Culture - Preliminary No Growth after 120 hours 08/30/17 07:02 Blood Blood Culture - Preliminary No Growth after 48 hours 08/30/17 08:23 Sputum Gram Stain - Final 08/30/17 08:23 Sputum Sputum Culture - Final 08/30/17 07:26 Blood Blood Culture - Preliminary No Growth after 48 hours 08/27/17 08:48 Sputum Gram Stain - Final 08/27/17 08:48 Sputum Sputum Culture - Final 08/26/17 15:20 Blood Blood Culture Gram Stain - Final 08/26/17 15:20 Blood Blood Culture - Final Viridans streptococcus group 08/26/17 15:20 Blood Blood Culture - Final Assessment and Plan (1) Infection by Streptococcus, viridans group Narrative/Plan: As noted this patient is a very complex history. Recent interventions are noted. There is evidence of the limited bilateral iliac artery aneurysms. Patient is evidence of bacteremia. Concerns to endocarditis or endovascular infection. CAN is to be done on Friday. Streptococcus viridans is isolated. She is completely edentulous. Antimicrobial therapy with vancomycin and meropenem have been started given the significant resistance pattern of the Streptococcus viridans. She is feeling slightly better today. Follow up blood cultures are negative. CAN is failed to reveal evidence of endocarditis. Will be able to complete a course of vancomycin therapy for Streptococcus viridans bacteremia. Without endocarditis a 2 week course of therapy should be adequate. IV access has been requested. Transfer to extended care to complete her course of therapy is in process. Current Visit: Yes Status: Acute Code(s): A49.1 - STREPTOCOCCAL INFECTION, UNSPECIFIED SITE SNOMED Code(s): 12947717 (2) Fever Current Visit: Yes Status: Acute Code(s): R50.9 - FEVER, UNSPECIFIED SNOMED Code(s): 537845641 (3) Gram-positive bacteremia Current Visit: Yes Status: Acute Code(s): R78.81 - BACTEREMIA SNOMED Code( s): 645748189676
[2017-09-01 20:42] LABS: Glucose,Whole Blood 181 mg/dL (75-99)
[2017-09-01] MEDS: ATENOLOL 12.5 MG TAB PO SCH (20:47)
[2017-09-01] MEDS: MELATONIN 5 MG TABLET PO SCH (20:48)
[2017-09-01] MEDS: PRAMIPEXOLE 0.125 MG TAB PO SCH (20:48)
[2017-09-01] MEDS: DULoxetine HCL 60 MG CAPSULE.DR PO SCH (20:48)
[2017-09-01] MEDS: PRAVASTATIN SODIUM 80 MG TAB PO SCH (20:49)
[2017-09-02 06:57] LABS: Glucose,Whole Blood 104 mg/dL (75-99)
[2017-09-02] MEDS: INSULIN ASPART 100 UNIT/ML 1 ML 10 ML VIAL SQ SCH ×4 (07:45→21:32)
[2017-09-02] MEDS: ASPIRIN 81 MG PO SCH (08:30)
[2017-09-02] MEDS: SUCRALFATE 1 GM TAB PO SCH ×4 (08:30→21:31)
[2017-09-02] MEDS: CALCIUM CARBONATE 500 MG CHEWABLE PO SCH ×2 (08:30→21:32)
[2017-09-02] MEDS: CHOLECALCIFEROL 1,000 UNIT TAB PO SCH (08:30)
[2017-09-02] MEDS: DEXILANT 60MG PO SCH (08:31)
[2017-09-02] MEDS: cycloSPORINE 0.05% OPHTH 0.4 ML DROPERETTE BOTH EYES SCH ×2 (08:31→21:32)
[2017-09-02] MEDS: HEPARIN SODIUM,PORCINE 5,000 UNIT/ML 1 ML VIAL SQ SCH ×2 (08:32→21:32)
[2017-09-02] MEDS: DULoxetine HCL 30 MG CAPSULE.DR PO SCH (08:32)
[2017-09-02] MEDS: PANTOPRAZOLE 40 MG/10 ML VIAL IVP SCH ×2 (08:32→20:00)
[2017-09-02] MEDS: guaiFENesin 600 MG TABLET.ER PO SCH ×2 (08:32→21:31)
[2017-09-02] MEDS: FAMOTIDINE 20 MG TAB PO SCH ×2 (08:32→08:42)
[2017-09-02] MEDS: SENNOSIDES-DOCUSATE SODIUM 1 EACH TAB PO SCH (08:33)
[2017-09-02] MEDS: predniSONE 50 MG TAB PO SCH (08:33)
[2017-09-02] MEDS: TOPIRAMATE 25 MG TAB PO SCH ×2 (08:33→21:32)
[2017-09-02] MEDS: POLYETHYLENE GLYCOL 3350 17 GM POWD.PACK PO SCH ×2 (08:33→20:00)
[2017-09-02] MEDS: IPRATROPIUM-ALBUTEROL 3 ML NEB INHALATION SCH ×4 (09:14→20:51)
[2017-09-02 11:29] LABS: Glucose,Whole Blood 112 mg/dL (75-99)
[2017-09-02] MEDS ORDERED: predniSONE 20 MG TAB PO SCH (12:10)
--- NOTE | 2017-09-02 12:11 | P.PN ---
Subjective Progress Note Date: 09/02/17 Principal diagnosis: Acute COPD exacerbation with tracheobronchitis Nafisa is a 67-year-old female patient who follows with Dr. Petersen for her history of COPD, presented to the ER on 08/26/2017 at 1400 with complaints of shortness of breath, cough, wheezing, chills. She states she has been sick since June, was recently hospitalized in July for non-ST elevated IA. She had a heart catheterization on 07/21/2017, which revealed heavily calcified right and left coronary systems, patent stent in the RCA, mild disease involving the left circumflex, and mild disease in the proximal and mid LAD. Recommendation was made to maximize medical treatment. Since then patient had been on outpatient course of antibiotics, and oxygen at 2 L per nasal cannula. She has stopped smoking in July, is currently on a nicotine patch. She reports no improvement with antibiotics, complaining of ongoing wheezing, and production of thick clear sputum. On admission there was no evidence of leukocytosis, patient was afebrile. EKG showed normal sinus rhythm. Chest x- ray showed chronic emphysematous changes without any evidence of acute pulmonary process. D-dimer on admission was found to be elevated at 6, ultrasound Doppler of the right leg was negative for DVT. She had a CTA chest done in July 2017 which showed no evidence of pulmonary embolism. Patient was started on empiric antibiotics, and Rocephin, Zithromax, IV steroids, nebulized treatments, and admitted to the hospital for further treatment. On 08/28/2017 patient seen again on medical surgical floor, and proving, but not back to her baseline yet. Still becomes short of breath with exertion, currently on room air, with O2 sat 96%. Afebrile, vital signs are stable, lung sounds generally diminished, no rhonchi, no wheezing. Blood culture from 2017 was positive for Streptococcus species, patient is covered with Rocephin and Zithromax. Await final cultures. Follow-up culture on 08/27/2017 showed no growth. Patient's Solu-Medrol was switched over to prednisone, continue the rest of the medical treatments and nebulizer treatments. On 08/29/2017 patient seen in follow-up. Blood culture from 08/26/2017 was positive for Streptococcus viridans group, resistant to azithromycin and Rocephin, the patient is currently on. Follow-up blood cultures from 2017 shows no growth at the 24-hour [place]. Sputum culture shows no growth. Afebrile, vital signs are stable, remains on 3 L per nasal cannula with O2 sat 97%. Lung sounds are diminished, no wheezes or rhonchi auscultated. Still has a persistent cough with production of white sputum. Complaining of some lower abdominal discomfort, nonspecific, complains of being constipated over last few days, but no nausea, no vomiting. Patient is scheduled for CT dominant pelvis with and without contrast, ID service was consulted. Cardiology was consulted with concerns of endocarditis related to bacteremia. On 09/01/2017 patient seen again in follow-up. The transesophageal echocardiogram was done this morning, showed no evidence of vegetation on her valves, there is mild mitral regurgitation noted, left ventricle systolic function is normal, there is no evidence of any patent [place], anterior atrial septum is intact, there is no evidence of thrombus in the left atrial appendage. There is a diffuse atherosclerotic plaque noted in descending and ascending thoracic aorta. Had of PICC line placed today. Pulmonary standpoint , she remains stable, [place] any shortness of breath, wheezing or chest congestion. Remains on 2 L per nasal cannula with O2 sat at 97%. Afebrile, on sounds are clear, diminished at the bases, no rhonchi no wheezes auscultated. On 09/02/2017 patient seen in follow-up. Denies any acute complaints, no acute events overnight.afebrile, vital signs are stable, on 2 L per nasal cannula her O2 sat is 99%. She denies any dyspnea, no cough or chest congestion. she had a PICC line put in yesterday, discharge planning is in progress for discharge home today, with outpatient antibiotic infusions for the evidence of bacteremia. From pulmonary standpoint, she remains stable, her lung sounds are clear, no rhonchi or wheezing noted. She can be discharged home from our standpoint today. Follow-up with Dr. Naylor in the office in one week. Objective - Vital Signs Vital signs: Vital Signs Temp 98.3 F 09/02/17 07:00 Pulse 89 09/02/17 09:25 Resp 18 09/02/17 09:15 BP 163/61 09/02/17 07:00 Pulse Ox 99 09/02/17 09:15 Intake & Output 09/01/17 09/02/17 09/02/17 18:59 06:59 18:59 Intake Total 210 560 Balance 210 560 Weight 51.71 kg Intake: IV 150 80 Meropenem 1 gm In Sodium 100 Chloride 0.9% 100 ml @ 200 mls/hr IVPB Q12HR [facility] Rx#:[id number] Sodium Chloride 0.9% 1, 80 000 ml @ 20 mls/hr IV . Q24H [facility] Rx#:[id number] Intake, IV Titration 60 Amount Sodium Chloride 0.9% 1, 60 000 ml @ 20 mls/hr IV . Q24H [facility] Rx#:[id number] Oral 480 Other: Voiding Method Toilet Toilet Toilet Diaper Diaper Diaper # Voids 1 - Exam GENERAL EXAM: Alert, active, comfortable in no apparent distress. HEAD: Normocephalic/atraumatic. EYES: Normal reaction of pupils, equal size. Conjunctiva pink, sclera white. NOSE: Clear with pink turbinates. THROAT: No erythema or exudates. NECK: No masses, no JVD, no thyroid enlargement, no adenopathy. CHEST: No chest wall deformity. Symmetrical expansion. LUNGS: Equal air entry with no crackles, wheeze,no rhonchi CVS: Regular rate and rhythm, normal S1 and S2, no gallops, no murmurs, no rubs ABDOMEN: Soft, slightly tender to palpation in the left lower and right lower quadrant. No hepatosplenomegaly, normal bowel sounds, no guarding or rigidity. EXTREMITIES: No clubbing, no edema, no cyanosis, 2+ pulses and upper and lower extremities. MUSCULOSKELETAL: Muscle strength and tone normal. SPINE: No scoliosis or deformity SKIN: No rashes CENTRAL NERVOUS SYSTEM: Alert and oriented -3. No focal deficits, tone is normal in all 4 extremities. PSYCHIATRIC: Alert and oriented -3. Appropriate affect. Intact judgment and insight. - Labs CBC & Chem 7: 09/01/17 07:02 09/01/17 07:02 Labs: Abnormal Lab Results - Last 24 Hours (Table) 09/01/17 09/01/17 09/01/17 Range/Units 13:16 16:27 20:22 POC Glucose (mg/dL) 135 H 146 H 181 H (75-99) mg/dL 09/02/17 09/02/17 Range/Units 06:52 10:55 POC Glucose (mg/dL) 104 H 112 H (75-99) mg/dL Microbiology - Last 24 Hours (Table) 08/30/17 07:02 Blood Culture - Preliminary Blood No Growth after 72 hours 08/30/17 07:26 Blood Culture - Preliminary Blood No Growth after 72 hours 08/27/17 10:34 Blood Culture - Preliminary Blood No Growth after 120 hours 08/30/17 08:23 Gram Stain - Final Sputum Sputum Culture - Final Assessment and Plan Plan: Assessment: #1. Strep viridans bacteremia, CAN was negative for any evidence of vegetation , patient has been covered with meropenem and vancomycin #1. Acute COPD exacerbation with tracheobronchitis, chest x-ray and 08/27/2017 shows chronic emphysematous changes, without acute pulmonary process #2. Chronic hypoxic respiratory failure, secondary to COPD #3. Recent non-ST elevated IA in July 2017 #4. Coronary artery disease #5. Nicotine dependence, currently in remission #6. Chronic anemia of chronic disease #7. Chronic hepatitis C, status post Harvoni therapy #8. Hyperlipidemia #9. History of abdominal aortic aneurysm with repair #10. Hypertension Plan: patient remains stable from pulmonary standpoint, no worsening dyspnea, lung sounds are clear, no acute complaints or events overnight. Vital signs are stable, afebrile, we will decrease the prednisone to 40 mg daily. She can be discharged home today, arrangements are in progress for patient's outpatient antibiotic infusion for her strep viridans bacteremia. Follow-up appointment with Dr. Naylor in the office in one week. patient can be discharged home on prednisone taper. I performed a history & physical examination of the patient and discussed their management with my nurse practitioner, Margaret Min. I reviewed the nurse practitioner's note and agree with the documented findings and plan of care. Lung sounds are diminished, no rhonchi, no wheezes. The findings and the impression was discussed with the patient. I attest to the documentation by the nurse practitioner. Time with Patient: Less than 30
[2017-09-02] MEDS: ALPRAZolam 0.5 MG TAB PO PRN (12:17)
--- NOTE | 2017-09-02 12:26 | P.DS ---
Providers Date of admission: 08/26/17 15:11 Expected date of discharge: 09/02/17 Attending physician: Gloria Hernandez Consults: 08/26/17 16:34 Consult Physician Routine Consulting Provider: Dinesh Petersen Consult Reason/Comments: known Do you want consulting provider notified?: Yes 08/29/17 09:26 Consult Physician Routine Consulting Provider: Jose Islas Consult Reason/Comments: strep bactermia Do you want consulting provider notified?: Yes 08/29/17 09:27 Consult Physician Routine Consulting Provider: Koffi Moy Consult Reason/Comments: pasha, strep bacteremia Do you want consulting provider notified?: Yes [facility] This is a 66-year-old female one of Dr. Colbert patient with past medical history of hepatitis C post the Harvoni therapy with history of CAD COPD asthma and previous history of DVT along with Takosubu syndrome who was hospitalized at [facility] in April 2016 for GI bleed with slight drop in hemoglobin was treated and did well ended up being discharged home. In January 2017, she had an admission for acute COPD exacerbation and acute bronchitis. He said hospitalization July 18 for non-ST elevated myocardial infarction status post heart cath patent stent in the RCA with heavily calcified right and left coronary systems and recommendations to maximize medical treatment. Patient had dissection at the right groin when she underwent heart catheterization was subsequently done from right radial approach.. Patient states that she has been on antibiotics in the outpatient setting as well as oxygen [id number] at 2 L nasal cannula versus at nighttime only. She does state that she stopped smoking in July on a nicotine patch. She is complaining of wheezing and clear thick sputum production. She states she is not getting better with antibiotics. She does complain of leg cramping when she stands up and has to walk to get the cramping to improve. She denies any edema. 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 She states that she was post have an ultrasound done of the area but she was late for appointment and it was canceled. She presents to [facility] emergency center. No leukocytosis, hemoglobin 10.5, afebrile. EKG was a sinus rhythm. Chest x-ray shows chronic emphysematous changes without acute pulmonary process. A dime or was elevated at 6 and on previous admission D-dimer was elevated at 5 and she underwent a CTA of the chest that was negative for pulmonary embolism. There is moderately severe pulmonary emphysema, pulmonary interstitial fibrosis, pleural and pulmonary scarring and calcification at the lung apices. No significant change from prior exam. Atheromatous aorta. Patient was admitted to the [facility] floor and started on nebulizer treatments, azithromycin, ceftriaxone, Solu-Medrol and consult with pulmonary medicine. 08/28: Patient states that she is not sleeping. Trazodone added to be given at supper time. She is complaining of headache with no significant pain at the right episcopalian. CRP and sed rate ordered. Solu-Medrol will be decreased and waste/materials exchange specialist to prednisone in the morning. Anticipate discharge home tomorrow. Patient does give history that she was on atorvastatin and was unable to tolerate it and pravastatin ordered. Aspirin also was resumed yesterday. 08/29: Initial blood culture returned positive for viridans streptococcus group. Repeat blood culture from August 27 showing no growth after 24 hours. Patient does complain of her gums hurting and unable to wear her dentures. She had all her teeth removed in 2013. Pulmonary medicine is changed ceftriaxone to Levaquin. Consult has been added for Dr. Islas. PASHA has been requested to be done by cardiology. Patient's breathing status is improving not quite back to her baseline. Pulse ox is 96% with oxygen at 3 L nasal cannula. She has been afebrile. Patient did start prednisone this morning. She is complaining of mid right abdominal pain and tenderness for which a CAT scan of the abdomen and pelvis with contrast has been ordered noted patient has ALLERGY listed in with vaginal bleeding. Vaginal bleeding is not a direct result of contrast. Patient understands this and no premedication as necessary. Patient does have postmenopausal bleeding for which she follows with Dr. Lopez but has been noncompliant and did not make her last appointment. No active vaginal bleeding at this time. 08/30: CAT scan of the abdomen and pelvis and yesterday revealed enlarging common iliac artery aneurysm. Correlate for fecal stasis. Consult was admitted for Dr. Islas and he has recommended vancomycin and meropenem for endovascular infection and possible endocarditis less likely due to the streptococcus viridans bacteremia. Patient states she is still not had a bowel movement despite Senokot twice daily and MiraLAX will be added. She also complains of heartburn and Pepcid added. 08/31: Patient is complaining of more cough today and not feeling well. Mucinex is been added. Patient encouraged to get out of bed and ambulate. She is currently on humidified oxygen. She has been afebrile. Repeat blood cultures are showing no growth and patient will be scheduled for PICC line placement tomorrow. Patient is rescheduled for PASHA tomorrow with Dr. Garcia. 09/01: PICC line was placed this morning. PASHA reveals mild thickening of the aortic and mitral leaflet. No definite evidence of any vegetation on mitral, aortic or tricuspid valve. Mild mitral regurgitation. Left ventricular systolic function is normal. Intra-atrial septum intact. No evidence of thrombus in the left atrial appendage. Diffuse atherosclerotic plaque noted in the descending and ascending thoracic aorta. Dr. Islas is planning on vancomycin for 4 weeks. plan manager is trying to make arrangements for IV antibiotics. 09/02: Patient did have bowel movements last night. Patient has agreed to go to [facility] for rehab and IV antibiotics. Patient will require 2 more weeks of vancomycin. Patient's breathing status is stable. Patient will be discharged today in stable condition. Back up plan if patient is not accepted for rehab, home and daughter will drive her in for daily IV antibiotics. Discharge diagnoses: 1. Acute COPD exacerbation and acute tracheobronchitis with chronic hypoxic respiratory failure. 2. Viridans strep bacteremia secondary to endovascular infection, endocarditis ruled out. 3. Recent non-ST elevated myocardial infarction status post heart catheterization finding patent stent in the RCA and heavily calcified right and left coronary systems in July 2017. 4. Peripheral vascular disease. 5. Chronic back pain. 6. Chronic anemia of chronic disease. 7. PUD. 8. Hep C S/P Harvoni therapy. 9. Hyperlipidemia. 10. Abdominal aortic aneurysm S/P endovascular stent. 11. Chronic tobacco use and dependence. 12. Migraine Headache. 13. Hypertension and hypertensive cardiovascular disease. 14. Restless leg syndrome. 15. Obstructive sleep apnea. Stable. 16. Depression, recurrent. 17. Overactive bladder. 18. Headache with pain and tenderness most significant at the right temporal. Temporal arteritis ruled out. 19. Postmenopausal vaginal bleeding. Patient has been encouraged to follow-up with Dr. Lopez as an outpatient. 20. Right-sided abdominal pain secondary to constipation. [facility] and plan of care have been directed as dictated by the signing physician. Coby Joaquin nurse practitioner acting as scribe for signing physician. Patient Condition at Discharge: Good Plan - Discharge Summary Discharge Rx Participant: No New Discharge Prescriptions: New Vancomycin 1,250 mg IVPB Q24HR #28 bag Albuterol Nebulized [Ventolin Nebulized] 2.5 mg INHALATION RT-TID PRN nebu PRN Reason: Shortness Of Breath Aspirin 81 mg PO DAILY chew Famotidine [Pepcid] 20 mg PO DAILY tab guaiFENesin [Mucinex] 1,200 mg PO Q12HR tablet.er Insulin Aspart [NovoLOG (formulary)] 0 unit SQ ACHS #0 vial Pravastatin Sodium [Pravachol] 80 mg PO HS #0 tab traZODone HCL [Desyrel] 50 mg PO 1800 tab predniSONE 0 mg PO DIRECTED #40 tab Polyethylene Glycol 3350 [Miralax] 17 gm PO BID #0 powd.pack Continue cycloSPORINE [Restasis] 2 drop BOTH EYES BID Sucralfate [Carafate] 1 gm PO ACHS Atenolol [Tenormin] 12.5 mg PO HS Dexlansoprazole [Dexilant] 60 mg PO DAILY Tiotropium 18 Mcg/Puff [Spiriva] 1 cap INHALATION RT-HS Pramipexole [Mirapex] 0.125 mg PO HS Topiramate [Topamax] 50 mg PO BID Cholecalciferol [Vitamin D3] 1,000 unit PO DAILY Ipratropium-Albuterol Nebulize [Duoneb 0.5 mg-3 mg/3 ml Soln] 3 ml INHALATION RT-QID #120 neb Melatonin 5 mg PO HS #30 tablet DULoxetine HCL [Cymbalta] 60 mg PO HS DULoxetine HCL [Cymbalta] 30 mg PO DAILY Nicotine 14Mg/24Hr Patch [Habitrol] 1 patch TRANSDERM Q24H #30 patch Nitroglycerin Sl Tabs [Nitrostat] 0.4 mg SUBLINGUAL Q5M PRN #25 tab PRN Reason: Angina Calcium Carbonate [Calcium] 600 mg PO BID ALPRAZolam [Xanax] 1 mg PO TID #90 tablet Butalb/APAP/Caff 50-325-40Mg [Fioricet 50-325-40] 0.5 tab PO Q4H PRN #60 tab PRN Reason: pain Discontinued Albuterol Sulfate [Ventolin HFA] 2 puff INHALATION RT-TID PRN PRN Reason: Shortness Of Breath Ciprofloxacin HCl [Cipro] 500 mg PO Q12HR Discharge Medication List Atenolol [Tenormin] 12.5 mg PO HS 12/27/13 [History] Dexlansoprazole [Dexilant] 60 mg PO DAILY 12/27/13 [History] Sucralfate [Carafate] 1 gm PO ACHS 12/27/13 [History] cycloSPORINE [Restasis] 2 drop BOTH EYES BID 12/27/13 [History] Pramipexole [Mirapex] 0.125 mg PO HS 09/12/14 [History] Tiotropium 18 Mcg/Puff [Spiriva] 1 cap INHALATION RT-HS 09/12/14 [History] Topiramate [Topamax] 50 mg PO BID 05/03/15 [History] Cholecalciferol [Vitamin D3] 1,000 unit PO DAILY 02/13/17 [History] Ipratropium-Albuterol Nebulize [Duoneb 0.5 mg-3 mg/3 ml Soln] 3 ml INHALATION RT -QID #120 neb 02/16/17 [Rx] Melatonin 5 mg PO HS #30 tablet 02/16/17 [Rx] DULoxetine HCL [Cymbalta] 30 mg PO DAILY 07/18/17 [History] DULoxetine HCL [Cymbalta] 60 mg PO HS 07/18/17 [History] Nicotine 14Mg/24Hr Patch [Habitrol] 1 patch TRANSDERM Q24H #30 patch 07/22/17 [ Rx] Nitroglycerin Sl Tabs [Nitrostat] 0.4 mg SUBLINGUAL Q5M PRN #25 tab 07/22/17 [Rx ] Calcium Carbonate [Calcium] 600 mg PO BID 08/25/17 [History] Vancomycin 1,250 mg IVPB Q24HR #28 bag 09/01/17 [Rx] ALPRAZolam [Xanax] 1 mg PO TID #90 tablet 09/02/17 [Rx] Albuterol Nebulized [Ventolin Nebulized] 2.5 mg INHALATION RT-TID PRN nebu [Rx] Aspirin 81 mg PO DAILY chew 09/02/17 [Rx] Butalb/APAP/Caff 50-325-40Mg [Fioricet 50-325-40] 0.5 tab PO Q4H PRN #60 tab [Rx] Famotidine [Pepcid] 20 mg PO DAILY tab 09/02/17 [Rx] Insulin Aspart [NovoLOG (formulary)] 0 unit SQ ACHS #0 vial 09/02/17 [Rx] Polyethylene Glycol 3350 [Miralax] 17 gm PO BID #0 powd.pack 09/02/17 [Rx] Pravastatin Sodium [Pravachol] 80 mg PO HS #0 tab 09/02/17 [Rx] guaiFENesin [Mucinex] 1,200 mg PO Q12HR tablet.er 09/02/17 [Rx] predniSONE 0 mg PO DIRECTED #40 tab 09/02/17 [Rx] traZODone HCL [Desyrel] 50 mg PO 1800 tab 09/02/17 [Rx] Follow up Appointment(s)/Referral(s): Jose Islas MD [STAFF PHYSICIAN] - 2 Weeks Jenaro Colbert DO [Primary Care Provider] - 1-2 days Ambulatory/Diagnostic Orders: Basic Metabolic Panel [LAB.AMB] Location: Determined By Patient Complete Blood Count w/diff [LAB.AMB] Location: Determined By Patient Vancomycin,Trough [LAB.AMB] Location: Determined By Patient Discharge Disposition: TRANSFER TO SNF/ECF
[2017-09-02] MEDS: SODIUM CHLORIDE 0.9% 1,000 ML IV SCH (16:04)
[2017-09-02] MEDS: VANCOMYCIN 1,250 MG in SODIUM CHLORIDE 0.9% 250 ML IVPB SCH (16:05)
[2017-09-02 17:00] LABS: Glucose,Whole Blood 185 mg/dL (75-99)
[2017-09-02] MEDS: traZODone HCL 50 MG TAB PO SCH (18:32)
[2017-09-02] MEDS: NICOTINE 14MG/24HR PATCH TRANSDERM SCH (18:32)
[2017-09-02] MEDS: BUTALB/APAP/CAFF 50-325-40MG TAB PO PRN (20:00)
[2017-09-02 20:03] LABS: Glucose,Whole Blood 132 mg/dL (75-99)
[2017-09-02] MEDS: PRAMIPEXOLE 0.125 MG TAB PO SCH (21:32)
[2017-09-02] MEDS: DULoxetine HCL 60 MG CAPSULE.DR PO SCH (21:32)
[2017-09-02] MEDS: MELATONIN 5 MG TABLET PO SCH (21:32)
[2017-09-02] MEDS: ATENOLOL 12.5 MG TAB PO SCH (21:32)
[2017-09-02] MEDS: PRAVASTATIN SODIUM 80 MG TAB PO SCH (21:32)
[2017-09-03] MEDS: BUTALB/APAP/CAFF 50-325-40MG TAB PO PRN (05:59)
[2017-09-03 07:36] LABS: Glucose,Whole Blood 95 mg/dL (75-99)
[2017-09-03 07:50] VITALS: RESP 20
[2017-09-03] MEDS: INSULIN ASPART 100 UNIT/ML 1 ML 10 ML VIAL SQ SCH ×3 (08:12→17:22)
[2017-09-03] MEDS: SUCRALFATE 1 GM TAB PO SCH ×3 (08:13→17:44)
[2017-09-03] MEDS: guaiFENesin 600 MG TABLET.ER PO SCH (08:13)
[2017-09-03] MEDS: CALCIUM CARBONATE 500 MG CHEWABLE PO SCH (08:13)
[2017-09-03] MEDS: ASPIRIN 81 MG PO SCH (08:13)
[2017-09-03] MEDS: POLYETHYLENE GLYCOL 3350 17 GM POWD.PACK PO SCH (08:13)
[2017-09-03] MEDS: CHOLECALCIFEROL 1,000 UNIT TAB PO SCH (08:16)
[2017-09-03] MEDS: TOPIRAMATE 25 MG TAB PO SCH (08:16)
[2017-09-03] MEDS: PANTOPRAZOLE 40 MG/10 ML VIAL IVP SCH (08:16)
[2017-09-03] MEDS: cycloSPORINE 0.05% OPHTH 0.4 ML DROPERETTE BOTH EYES SCH (08:17)
[2017-09-03] MEDS: DEXILANT 60MG PO SCH (08:17)
[2017-09-03] MEDS: HEPARIN SODIUM,PORCINE 5,000 UNIT/ML 1 ML VIAL SQ SCH (08:18)
[2017-09-03] MEDS: DULoxetine HCL 30 MG CAPSULE.DR PO SCH (08:18)
[2017-09-03] MEDS: IPRATROPIUM-ALBUTEROL 3 ML NEB INHALATION SCH ×3 (08:49→15:55)
[2017-09-03 11:26] LABS: Glucose,Whole Blood 124 mg/dL (75-99)
[2017-09-03] MEDS: ALPRAZolam 0.5 MG TAB PO PRN (12:59)
[2017-09-03] MEDS ORDERED: NYSTATIN 100,000 UNIT/ML SUSP 500,000 UNIT/5 ML CUP PO SCH (13:00)
--- NOTE | 2017-09-03 13:34 | P.PN ---
Subjective Progress Note Date: 09/03/17 Principal diagnosis: Acute COPD exacerbation with tracheobronchitis Nafisa is a 67-year-old female patient who follows with Dr. Petersen for her history of COPD, presented to the ER on 08/26/2017 at 1400 with complaints of shortness of breath, cough, wheezing, chills. She states she has been sick since June, was recently hospitalized in July for non-ST elevated RI. She had a heart catheterization on 07/21/2017, which revealed heavily calcified right and left coronary systems, patent stent in the RCA, mild disease involving the left circumflex, and mild disease in the proximal and mid LAD. Recommendation was made to maximize medical treatment. Since then patient had been on outpatient course of antibiotics, and oxygen at 2 L per nasal cannula. She has stopped smoking in July, is currently on a nicotine patch. She reports no improvement with antibiotics, complaining of ongoing wheezing, and production of thick clear sputum. On admission there was no evidence of leukocytosis, patient was afebrile. EKG showed normal sinus rhythm. Chest x- ray showed chronic emphysematous changes without any evidence of acute pulmonary process. D-dimer on admission was found to be elevated at 6, ultrasound Doppler of the right leg was negative for DVT. She had a CTA chest done in July 2017 which showed no evidence of pulmonary embolism. Patient was started on empiric antibiotics, and Rocephin, Zithromax, IV steroids, nebulized treatments, and admitted to the hospital for further treatment. On 08/28/2017 patient seen again on medical surgical floor, and proving, but not back to her baseline yet. Still becomes short of breath with exertion, currently on room air, with O2 sat 96%. Afebrile, vital signs are stable, lung sounds generally diminished, no rhonchi, no wheezing. Blood culture from 2017 was positive for Streptococcus species, patient is covered with Rocephin and Zithromax. Await final cultures. Follow-up culture on 08/27/2017 showed no growth. Patient's Solu-Medrol was switched over to prednisone, continue the rest of the medical treatments and nebulizer treatments. On 08/29/2017 patient seen in follow-up. Blood culture from 08/26/2017 was positive for Streptococcus viridans group, resistant to azithromycin and Rocephin, the patient is currently on. Follow-up blood cultures from 2017 shows no growth at the 24-hour [place]. Sputum culture shows no growth. Afebrile, vital signs are stable, remains on 3 L per nasal cannula with O2 sat 97%. Lung sounds are diminished, no wheezes or rhonchi auscultated. Still has a persistent cough with production of white sputum. Complaining of some lower abdominal discomfort, nonspecific, complains of being constipated over last few days, but no nausea, no vomiting. Patient is scheduled for CT dominant pelvis with and without contrast, ID service was consulted. Cardiology was consulted with concerns of endocarditis related to bacteremia. On 09/01/2017 patient seen again in follow-up. The transesophageal echocardiogram was done this morning, showed no evidence of vegetation on her valves, there is mild mitral regurgitation noted, left ventricle systolic function is normal, there is no evidence of any patent [place], anterior atrial septum is intact, there is no evidence of thrombus in the left atrial appendage. There is a diffuse atherosclerotic plaque noted in descending and ascending thoracic aorta. Had of PICC line placed today. Pulmonary standpoint , she remains stable, [place] any shortness of breath, wheezing or chest congestion. Remains on 2 L per nasal cannula with O2 sat at 97%. Afebrile, on sounds are clear, diminished at the bases, no rhonchi no wheezes auscultated. On 09/02/2017 patient seen in follow-up. Denies any acute complaints, no acute events overnight.afebrile, vital signs are stable, on 2 L per nasal cannula her O2 sat is 99%. She denies any dyspnea, no cough or chest congestion. she had a PICC line put in yesterday, discharge planning is in progress for discharge home today, with outpatient antibiotic infusions for the evidence of bacteremia. From pulmonary standpoint, she remains stable, her lung sounds are clear, no rhonchi or wheezing noted. She can be discharged home from our standpoint today. Follow-up with Dr. Naylor in the office in one week. On 09/03/2017 patient is seen again in follow-up. She is awaiting insurance approval for subacute rehab placement. Otherwise she remains stable, no worsening dyspnea, currently on room air. Yesterday a PICC line was placed for outpatient antibiotic infusions. Currently is on vancomycin, for strep viridans bacteremia. Lung sounds are clear, no rhonchi no wheezes noted. She is ambulating within the room and tolerating activity well. No acute complaints or events overnight. Objective - Vital Signs Vital signs: Vital Signs Temp 98.2 F 09/03/17 07:00 Pulse 76 09/03/17 12:04 Resp 20 09/03/17 07:00 BP 189/53 09/03/17 07:00 Pulse Ox 98 09/03/17 07:00 Intake & Output 09/02/17 09/03/17 09/03/17 18:59 06:59 18:59 Intake Total 500 240 Balance 500 240 Intake: IV 20 Sodium Chloride 0.9% 1, 20 000 ml @ 20 mls/hr IV . Q24H [facility] Rx#:[id number] Oral 480 240 Other: Voiding Method Toilet Toilet Toilet Diaper # Voids 2 2 - Exam GENERAL EXAM: Alert, active, comfortable in no apparent distress. HEAD: Normocephalic/atraumatic. EYES: Normal reaction of pupils, equal size. Conjunctiva pink, sclera white. NOSE: Clear with pink turbinates. THROAT: No erythema or exudates. NECK: No masses, no JVD, no thyroid enlargement, no adenopathy. CHEST: No chest wall deformity. Symmetrical expansion. LUNGS: Equal air entry with no crackles, wheeze,no rhonchi CVS: Regular rate and rhythm, normal S1 and S2, no gallops, no murmurs, no rubs ABDOMEN: Soft, slightly tender to palpation in the left lower and right lower quadrant. No hepatosplenomegaly, normal bowel sounds, no guarding or rigidity. EXTREMITIES: No clubbing, no edema, no cyanosis, 2+ pulses and upper and lower extremities. MUSCULOSKELETAL: Muscle strength and tone normal. SPINE: No scoliosis or deformity SKIN: No rashes CENTRAL NERVOUS SYSTEM: Alert and oriented -3. No focal deficits, tone is normal in all 4 extremities. PSYCHIATRIC: Alert and oriented -3. Appropriate affect. Intact judgment and insight. - Labs CBC & Chem 7: 09/01/17 07:02 09/01/17 07:02 Labs: Abnormal Lab Results - Last 24 Hours (Table) 09/02/17 09/02/17 09/03/17 Range/Units 16:56 19:56 11:11 POC Glucose (mg/dL) 185 H 132 H 124 H (75-99) mg/dL Microbiology - Last 24 Hours (Table) 08/30/17 07:02 Blood Culture - Preliminary Blood No Growth after 96 hours 08/30/17 07:26 Blood Culture - Preliminary Blood No Growth after 96 hours 08/27/17 10:34 Blood Culture - Final Blood No Growth after 144 hours Assessment and Plan Plan: Assessment: #1. Strep viridans bacteremia, CAN was negative for any evidence of vegetation , patient has been covered with meropenem and vancomycin #1. Acute COPD exacerbation with tracheobronchitis, chest x-ray and 08/27/2017 shows chronic emphysematous changes, without acute pulmonary process #2. Chronic hypoxic respiratory failure, secondary to COPD #3. Recent non-ST elevated RI in July 2017 #4. Coronary artery disease #5. Nicotine dependence, currently in remission #6. Chronic anemia of chronic disease #7. Chronic hepatitis C, status post Harvoni therapy #8. Hyperlipidemia #9. History of abdominal aortic aneurysm with repair #10. Hypertension Plan: Patient is awaiting insurance approval for subacute rehab placement. Patient remains stable from pulmonary standpoint, no worsening dyspnea, lung sounds are clear, no acute complaints or events overnight. Vital signs are stable, afebrile. She can be discharged home today, arrangements are in progress for patient's outpatient antibiotic infusion for her strep viridans bacteremia. Follow-up appointment with Dr. Naylor in the office in one week. patient can be discharged home on prednisone taper. I performed a history & physical examination of the patient and discussed their management with my nurse practitioner, Margaret Min. I reviewed the nurse practitioner's note and agree with the documented findings and plan of care. Lung sounds are diminished, no rhonchi, no wheezes. The findings and the impression was discussed with the patient. I attest to the documentation by the nurse practitioner. Time with Patient: Less than 30
[2017-09-03 15:33] VITALS: BP 158/60; TEMP 98.1
[2017-09-03 16:07] VITALS: PULSE 77
[2017-09-03] MEDS: VANCOMYCIN 1,250 MG in SODIUM CHLORIDE 0.9% 250 ML IVPB SCH (16:15)
[2017-09-03 17:22] LABS: Glucose,Whole Blood 106 mg/dL (75-99)
[2017-09-03] MEDS ORDERED: PANTOPRAZOLE 40 MG TABLET PO SCH (17:30)
--- NOTE | 2017-09-10 13:16 | P.ARTDOP ---
Arterial Doppler LOWER EXTREMITY ARTERIAL DOPPLER: DATE OF SERVICE: 08/27/2017 Reason for study: Bilateral leg pain. Doppler waveforms: Atypical throughout on the right. Multiphasic at the left femoral but atypical the rest of the way.. Pulse volume recording: Blunted below the thigh on the left and blunted below the mid calf on the right.. Pressure gradients: Above the low thigh bilaterally and then below the ankle levels bilaterally. Ankle-brachial indices: 0.68 on the right and 0.55 on the left.. Toe pressures: 75 on the right, 51 Impression: moderate bilateral femoral popliteal occlusive disease. Worse on the left than the right. on the left \
== END 2017-09-03 20:40 | DRG 191 ==
LOC: EC 14:41 → 5MS5E 15:11
PROVIDERS: ADMIT Family Medicine; ATTEND Family Medicine
PROC: 02HV33Z Insertion of Infusion Device into Superior Vena Cava, Percutaneous Approach (ICD-10-PCS; principal; 2017-09-01 07:30)
DX: J44.0 Chronic obstructive pulmonary disease with (acute) lower respiratory infection (principal); J96.11 Chronic respiratory failure with hypoxia; R78.81 Bacteremia; I72.3 Aneurysm of iliac artery; F33.9 Major depressive disorder, recurrent, unspecified; I11.9 Hypertensive heart disease without heart failure; J20.9 Acute bronchitis, unspecified; J44.1 Chronic obstructive pulmonary disease with (acute) exacerbation; B18.2 Chronic viral hepatitis C; I25.10 Atherosclerotic heart disease of native coronary artery without angina pectoris; I25.2 Old myocardial infarction; I70.0 Atherosclerosis of aorta; K21.9 Gastro-esophageal reflux disease without esophagitis; G25.81 Restless legs syndrome; I73.9 Peripheral vascular disease, unspecified; G89.29 Other chronic pain; D63.8 Anemia in other chronic diseases classified elsewhere; K27.9 Peptic ulcer, site unspecified, unspecified as acute or chronic, without hemorrhage or perforation; E78.5 Hyperlipidemia, unspecified; G43.909 Migraine, unspecified, not intractable, without status migrainosus; G47.33 Obstructive sleep apnea (adult) (pediatric); I34.0 Nonrheumatic mitral (valve) insufficiency; K08.109 Complete loss of teeth, unspecified cause, unspecified class; N32.81 Overactive bladder; M54.9 Dorsalgia, unspecified; K59.00 Constipation, unspecified; K76.9 Liver disease, unspecified; M47.816 Spondylosis without myelopathy or radiculopathy, lumbar region; N95.0 Postmenopausal bleeding; F17.210 Nicotine dependence, cigarettes, uncomplicated; Z79.899 Other long term (current) drug therapy; Z90.710 Acquired absence of both cervix and uterus; Z86.718 Personal history of other venous thrombosis and embolism; Z86.79 Personal history of other diseases of the circulatory system; Z87.01 Personal history of pneumonia (recurrent); Z91.19 Patient's noncompliance with other medical treatment and regimen; Z95.5 Presence of coronary angioplasty implant and graft; Z88.1 Allergy status to other antibiotic agents; Z91.030 Bee allergy status; Z91.041 Radiographic dye allergy status; Z91.040 Latex allergy status; Z88.5 Allergy status to narcotic agent; Z88.0 Allergy status to penicillin; Z88.2 Allergy status to sulfonamides; Z88.8 Allergy status to other drugs, medicaments and biological substances; Z91.018 Allergy to other foods; Z91.048 Other nonmedicinal substance allergy status; Z82.5 Family history of asthma and other chronic lower respiratory diseases
CPT/HCPCS: 36415; 36569; 71046; 72131; 74177; 76937; 77001; 80048; 80053; 80202; 82550; 82553; 83036; 83735; 83880; 84484; 85025; 85027; 85379; 85610; 85652; 85730; 86140; 87040; 87070; 87077; 87186; 87205; 93005; 93312; 93320; 93325; 93923; 94640; 94760; 96365; 96375; 99285

== ENCOUNTER 2017-10-11 15:36 | Emergency (ER) | payer MEDICARE ==
--- NOTE | 2017-10-11 15:51 | ED ---
General Adult HPI - General Source: patient, EMS, RN notes reviewed, old records reviewed Mode of arrival: EMS Limitations: no limitations <Nacho Eason - Last Filed: 10/11/17 16:22> <Sandra Plummer - Last Filed: 10/11/17 19:41> - General Chief complaint: GI Bleed Stated complaint: dyspnea Time Seen by Provider: 10/11/17 15:47 - History of Present Illness Initial comments: This is a 67-year-old female who was recently hospitalized for infectious processes who was brought in by EMS today because of 2 days of nausea vomiting generally not feeling well decreased oral intake she also developed shortness of breath also apparently had blood in her stool today. She was found be hypertensive 170/111 5 paramedics. She was given some IV fluids IV was established. No reports of overt fevers chills or sweats patient is reported to be warm to the touch hour. Patient is a relatively poor historian. (Nacho Eason) - Related Data Home Medications Medication Instructions Recorded Confirmed Atenolol [Tenormin] 12.5 mg PO HS 12/27/13 10/11/17 Dexlansoprazole [Dexilant] 60 mg PO DAILY 12/27/13 10/11/17 Sucralfate [Carafate] 1 gm PO ACHS 12/27/13 10/11/17 Pramipexole [Mirapex] 0.125 mg PO HS 09/12/14 10/11/17 Tiotropium 18 Mcg/Puff [Spiriva] 1 cap INHALATION RT-HS 09/12/14 10/11/17 Topiramate [Topamax] 50 mg PO BID 05/03/15 10/11/17 Cholecalciferol [Vitamin D3] 1,000 unit PO DAILY 02/13/17 10/11/17 DULoxetine HCL [Cymbalta] 30 mg PO DAILY 07/18/17 10/11/17 DULoxetine HCL [Cymbalta] 60 mg PO HS 07/18/17 10/11/17 Calcium Carbonate [Calcium] 600 mg PO BID 08/25/17 10/11/17 Nicotine 21Mg/24Hr Patch [Habitrol] 1 patch TRANSDERM DAILY 09/09/17 10/11/17 traZODone HCL [Desyrel] 50 mg PO HS 09/09/17 10/11/17 Acetaminophen [Tylenol] 650 mg PO Q6H PRN 10/11/17 10/11/17 Albuterol Nebulized [Ventolin 2.5 mg INHALATION RT-Q8H PRN 10/11/17 10/11/17 Nebulized] Artificial Tears-Hypromellose 1 drops BOTH EYES BID 10/11/17 10/11/17 [Artificial Tear Drops] Budesonide [Pulmicort] 0.5 mg INHALATION RT-Q12H 10/11/17 10/11/17 Docosanol [Abreva] 1 applic TP BID 10/11/17 10/11/17 Ipratropium-Albuterol Nebulize 3 ml INHALATION RT-Q6H 10/11/17 10/11/17 [Duoneb 0.5 mg-3 mg/3 ml Soln] Meclizine [Antivert] 12.5 mg PO Q8H PRN 10/11/17 10/11/17 Oxybutynin Xl [Ditropan Xl] 5 mg PO BID 10/11/17 10/11/17 cloNIDine HCL [Catapres] 0.1 mg PO Q8H PRN 10/11/17 10/11/17 Previous Rx's Medication Instructions Recorded Melatonin 5 mg PO HS #30 tablet 02/16/17 Nitroglycerin Sl Tabs [Nitrostat] 0.4 mg SUBLINGUAL Q5M PRN #25 tab 07/22/17 Aspirin 81 mg PO DAILY chew 09/02/17 Polyethylene Glycol 3350 [Miralax] 17 gm PO BID #0 powd.pack 09/02/17 Pravastatin Sodium [Pravachol] 80 mg PO HS #0 tab 09/02/17 guaiFENesin [Mucinex] 1,200 mg PO Q12HR tablet.er 09/02/17 ALPRAZolam [Xanax] 1 mg PO TID #90 tablet 09/12/17 Butalb/APAP/Caff 50-325-40Mg 0.5 tab PO Q4H PRN #60 tab 09/12/17 [Fioricet 50-325-40] Metoclopramide [Reglan] 5 mg PO ACHS #15 tab 10/11/17 traMADol HCL [Ultram] 50 mg PO Q12H PRN #20 tab 10/11/17 Allergies Allergy/AdvReac Type Severity Reaction Status Date / Time naproxen sodium [From Aleve] Allergy Severe Anaphylaxis Verified 10/11/17 15:41 adhesive Allergy Rash/Hives Verified 10/11/17 15:41 cinnamon [Cinnamon] Allergy Dyspnea Verified 10/11/17 15:41 clindamycin Allergy Anaphylaxis Verified 10/11/17 15:41 codeine Allergy Nausea & Verified 10/11/17 15:41 Vomiting gentamicin [Gentamicin] Allergy SWELLING Verified 10/11/17 15:41 OF FACE W/ EYE DROPS paola Allergy Dyspnea Verified 10/11/17 15:41 latex Allergy Rash/Hives Verified 10/11/17 15:41 levothyroxine sodium Allergy Unknown Verified 10/11/17 15:41 [From Synthroid] montelukast sodium Allergy Wheezing Verified 10/11/17 15:41 [From Singulair] pantoprazole sodium Allergy Abdominal Verified 10/11/17 15:41 [From Protonix] Pain Penicillins Allergy Rash/Hives Verified 10/11/17 15:41 red dye Allergy Abdominal Verified 10/11/17 15:41 Pain Sulfa (Sulfonamide Allergy Swelling Verified 10/11/17 15:41 Antibiotics) IN MOUTH sulfamethoxazole Allergy swelling Verified 10/11/17 15:41 [From Bactrim] tongue trimethoprim [From Bactrim] Allergy Swelling Verified 10/11/17 15:41 venom-honey bee Allergy Dyspnea Verified 10/11/17 15:41 [bee venom (honey bee)] BANDAIDS Allergy Rash/Hives Uncoded 10/11/17 15:41 tomatoes AdvReac Abdominal Uncoded 10/11/17 15:41 Pain Review of Systems ROS Other: All systems not noted in ROS Statement are negative. Limitations: ROS unobtainable due to patients medical condition <Nacho Eason - Last Filed: 10/11/17 16:22> ROS Other: All systems not noted in ROS Statement are negative. <Sandra Plummer - Last Filed: 10/11/17 19:41> ROS Statement: Those systems with pertinent positive or pertinent negative responses have been documented in the HPI. 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 amenia-iron infusons x2 Last Myocardial Infarction Date:: 06/2011 History of Any Multi-Drug Resistant Organisms: None Reported Past Surgical History: Bladder Surgery, Heart Catheterization With Stent, Hysterectomy, Orthopedic Surgery Additional Past Surgical History / Comment(s): HEART STENT 2010. AAA STENT 2005. VARICOSE VEIN STRIPPING R leg. EXP LAP. LIVER/BX, HAD RT FOOT SURGERY D/ T SALMONELLA INFECTION. R SHOULDER SCOPE. COLONOSCOPY-NORMAL. BLADDER SUSPENSIONS. Past Anesthesia/Blood Transfusion Reactions: No Reported Reaction Date of Last Stent Placement:: 2010 Past Psychological History: Anxiety, Depression, Panic Disorder Smoking Status: Current every day smoker Past Alcohol Use History: None Reported Past Drug Use History: None Reported - Past Family History Brother(s) Family Medical History: Coronary Artery Disease (CAD), Myocardial Infarction ([place] ) Father Additional Family Medical History / Comment(s): FROM CIRRHOSIS OF THE LIVER Mother Family Medical History: COPD Additional Family Medical History / Comment(s): FROM AAA, HAD HX TB <Nacho Eason - Last Filed: 10/11/17 16:22> General Exam Limitations: no limitations General appearance: alert, lethargic Head exam: Present: atraumatic, normocephalic, normal inspection Eye exam: Present: normal appearance, PERRL, EOMI. Absent: scleral icterus, conjunctival injection, periorbital swelling ENT exam: Present: mucous membranes dry Neck exam: Present: normal inspection. Absent: tenderness, meningismus, lymphadenopathy Respiratory exam: Present: decreased breath sounds Cardiovascular Exam: Present: regular rate, normal rhythm, normal heart sounds. Absent: systolic murmur, diastolic murmur, rubs, gallop, clicks GI/Abdominal exam: Present: soft, normal bowel sounds. Absent: distended, tenderness, guarding, rebound, rigid Rectal exam: Present: normal inspection, other (No masses no gross bleeding.) Extremities exam: Present: normal inspection, full ROM, normal capillary refill. Absent: tenderness, pedal edema, joint swelling, calf tenderness Back exam: Present: normal inspection Neurological exam: Present: alert, oriented X3, CN II-XII intact Psychiatric exam: Present: normal affect, normal mood Skin exam: Present: warm, dry, intact, normal color. Absent: rash <Nacho Eason - Last Filed: 10/11/17 16:22> <Sandra Plummer - Last Filed: 10/11/17 19:41> - General Exam Comments Initial Comments: This is a well-developed well-nourished awake alert but lethargic female (JenaroNacho) Course <Nacho Eason - Last Filed: 10/11/17 16:22> <Sandra Plummer - Last Filed: 10/11/17 19:41> Vital Signs 10/11/17 10/11/17 10/11/17 15:39 16:58 18:44 Temperature 98.7 F Pulse Rate 93 91 87 Respiratory 16 18 18 Rate Blood Pressure 188/84 156/74 157/82 O2 Sat by Pulse 92 L 100 99 Oximetry She is reassessed at term 1800, CBC, compressive metabolic panel all within normal range creatinine is bit elevated at 1.0 Is unremarkable, blood is unremarkable chest x-ray showed some findings consistent with a COPD which is About abdominal pain I noticed some tears in her eyes when I examine her belly 9 noticed a hard lump in the mid abdomen whether its impacted stool, dysuria is definitely tender ongoing ahead and do a CT of the abdomen and pelvis with the IV contrast (Sandra Plummer) - Reevaluation(s) Reevaluation #1: 10/11/17 16:23 Patient will be endorsed to Dr. Plummer at her shift change she will make the final disposition (Nacho Eason) 10/11/17 19:37 She is reassessed at 1930, CT abdomen is unremarkable compared to her old CT of the abdomen, she does have avascular necrosis of the hips bilateral also has abdominal aneurysm which is less than 4 cm in size, we discussed the pain management options she agreed with the tramadol and Reglan and she will follow- up with the the doctor on Friday or she will return to the ER if symptoms get worse 10/11/17 19:39 Her hemoglobin is stable and occult blood done in the ER was negative (Sandra Plummer) EKG Findings - EKG Results: EKG: interpreted by NEVILLE (Sinus rate was 90. Interval 154 QRS duration 84 QT since QTC 380/464 left anterior fascicular block and minimal criteria for LVH.) <Nacho Eason - Last Filed: 10/11/17 16:22> Medical Decision Making - Lab Data Result diagrams: 10/11/17 15:45 10/11/17 15:45 <Nacho Eason - Last Filed: 10/11/17 16:22> - Lab Data Result diagrams: 10/11/17 15:45 10/11/17 15:45 <Sandra Plummer - Last Filed: 10/11/17 19:41> - Lab Data Lab Results 10/11/17 10/11/17 10/11/17 Range/Units 15:45 15:45 15:45 WBC (3.8-10.6) k/uL RBC (3.80-5.40) m/uL Hgb (11.4-16.0) gm/dL Hct (34.0-46.0) % MCV (80.0-100.0) fL MCH (25.0-35.0) pg MCHC (31.0-37.0) g/dL RDW (11.5-15.5) % Plt Count (150-450) k/uL Neutrophils % % Lymphocytes % % Monocytes % % Eosinophils % % Basophils % % Neutrophils # (1.3-7.7) k/uL Lymphocytes # (1.0-4.8) k/uL Monocytes # (0-1.0) k/uL Eosinophils # (0-0.7) k/uL Basophils # (0-0.2) k/uL Hypochromasia Anisocytosis Sodium 142 (137-145) mmol/L Potassium 3.9 (3.5-5.1) mmol/L Chloride 104 (98-107) mmol/L Carbon Dioxide 22 (22-30) mmol/L Anion Gap 16 mmol/L BUN 25 H (7-17) mg/dL Creatinine 1.20 H (0.52-1.04) mg/dL Est GFR (MDRD) Af Amer 54 (>60 ml/min/1.73 sqM) Est GFR (MDRD) Non-Af 45 (>60 ml/min/1.73 sqM) Glucose 125 H (74-99) mg/dL Plasma Lactic Acid Aquilino (0.7-2.0) mmol/L Calcium 10.2 (8.4-10.2) mg/dL Magnesium 1.9 (1.6-2.3) mg/dL Total Bilirubin 0.5 (0.2-1.3) mg/dL AST 30 (14-36) U/L ALT 22 (9-52) U/L Alkaline Phosphatase 90 (38-126) U/L Total Creatine Kinase 41 (30-135) U/L CK-MB (CK-2) 0.9 (0.0-2.4) ng/mL CK-MB (CK-2) Rel Index 2.2 Troponin I 0.019 (0.000-0.034) ng/mL Total Protein 7.4 (6.3-8.2) g/dL Albumin 4.2 (3.5-5.0) g/dL Amylase 101 (30-110) U/L Urine Color Urine Appearance (Clear) Urine pH (5.0-8.0) Ur Specific Paul[place] (1.001-1.035) Urine Protein (Negative) Urine Glucose (UA) (Negative) Urine Ketones (Negative) Urine Blood (Negative) Urine Nitrite (Negative) Urine Bilirubin (Negative) Urine Urobilinogen (<2.0) mg/dL Ur Leukocyte Esterase (Negative) Urine RBC (0-5) /hpf Urine WBC (0-5) /hpf Ur Squamous Epith Cells (0-4) /hpf Calcium Oxalate Crystal (None) /hpf Urine Bacteria (None) /hpf Hyaline Casts (0-2) /lpf Urine Mucus (None) /hpf Stool Occult Blood (Negative) Blood Type A Positive Blood Type Recheck CABO Indicated Antibody Screen NEGATIVE Spec Expiration Date 10/14/2017234410/11/17 10/11/17 10/11/17 Range/Units 15:45 15:45 16:02 WBC 8.5 (3.8-10.6) k/uL RBC 4.33 (3.80-5.40) m/uL Hgb 12.9 (11.4-16.0) gm/dL Hct 40.7 (34.0-46.0) % MCV 94.1 (80.0-100.0) fL MCH 29.7 (25.0-35.0) pg MCHC 31.6 (31.0-37.0) g/dL RDW 18.0 H (11.5-15.5) % Plt Count 129 L (150-450) k/uL Neutrophils % 67 % Lymphocytes % 23 % Monocytes % 5 % Eosinophils % 3 % Basophils % 0 % Neutrophils # 5.7 (1.3-7.7) k/uL Lymphocytes # 1.9 (1.0-4.8) k/uL Monocytes # 0.4 (0-1.0) k/uL Eosinophils # 0.3 (0-0.7) k/uL Basophils # 0.0 (0-0.2) k/uL Hypochromasia Slight Anisocytosis Slight Sodium (137-145) mmol/L Potassium (3.5-5.1) mmol/L Chloride (98-107) mmol/L Carbon Dioxide (22-30) mmol/L Anion Gap mmol/L BUN (7-17) mg/dL Creatinine (0.52-1.04) mg/dL Est GFR (MDRD) Af Amer (>60 ml/min/1.73 sqM) Est GFR (MDRD) Non-Af (>60 ml/min/1.73 sqM) Glucose (74-99) mg/dL Plasma Lactic Acid Aquilino 1.6 (0.7-2.0) mmol/L Calcium (8.4-10.2) mg/dL Magnesium (1.6-2.3) mg/dL Total Bilirubin (0.2-1.3) mg/dL AST (14-36) U/L ALT (9-52) U/L Alkaline Phosphatase (38-126) U/L Total Creatine Kinase (30-135) U/L CK-MB (CK-2) (0.0-2.4) ng/mL CK-MB (CK-2) Rel Index Troponin I (0.000-0.034) ng/mL Total Protein (6.3-8.2) g/dL Albumin (3.5-5.0) g/dL Amylase (30-110) U/L Urine Color Urine Appearance (Clear) Urine pH (5.0-8.0) Ur Specific [place] (1.001-1.035) Urine Protein (Negative) Urine Glucose (UA) (Negative) Urine Ketones (Negative) Urine Blood (Negative) Urine Nitrite (Negative) Urine Bilirubin (Negative) Urine Urobilinogen (<2.0) mg/dL Ur Leukocyte Esterase (Negative) Urine RBC (0-5) /hpf Urine WBC (0-5) /hpf Ur Squamous Epith Cells (0-4) /hpf Calcium Oxalate Crystal (None) /hpf Urine Bacteria (None) /hpf Hyaline Casts (0-2) /lpf Urine Mucus (None) /hpf Stool Occult Blood Negative (Negative) Blood Type Blood Type Recheck Antibody Screen Spec Expiration Date 10/11/17 Range/Units 17:50 WBC (3.8-10.6) k/uL RBC (3.80-5.40) m/uL Hgb (11.4-16.0) gm/dL Hct (34.0-46.0) % MCV (80.0-100.0) fL MCH (25.0-35.0) pg MCHC (31.0-37.0) g/dL RDW (11.5-15.5) % Plt Count (150-450) k/uL Neutrophils % % Lymphocytes % % Monocytes % % Eosinophils % % Basophils % % Neutrophils # (1.3-7.7) k/uL Lymphocytes # (1.0-4.8) k/uL Monocytes # (0-1.0) k/uL Eosinophils # (0-0.7) k/uL Basophils # (0-0.2) k/uL Hypochromasia Anisocytosis Sodium (137-145) mmol/L Potassium (3.5-5.1) mmol/L Chloride (98-107) mmol/L Carbon Dioxide (22-30) mmol/L Anion Gap mmol/L BUN (7-17) mg/dL Creatinine (0.52-1.04) mg/dL Est GFR (MDRD) Af Amer (>60 ml/min/1.73 sqM) Est GFR (MDRD) Non-Af (>60 ml/min/1.73 sqM) Glucose (74-99) mg/dL Plasma Lactic Acid Aquilino (0.7-2.0) mmol/L Calcium (8.4-10.2) mg/dL Magnesium (1.6-2.3) mg/dL Total Bilirubin (0.2-1.3) mg/dL AST (14-36) U/L ALT (9-52) U/L Alkaline Phosphatase (38-126) U/L Total Creatine Kinase (30-135) U/L CK-MB (CK-2) (0.0-2.4) ng/mL CK-MB (CK-2) Rel Index Troponin I (0.000-0.034) ng/mL Total Protein (6.3-8.2) g/dL Albumin (3.5-5.0) g/dL Amylase (30-110) U/L Urine Color Yellow Urine Appearance Cloudy H (Clear) Urine pH 6.0 (5.0-8.0) Ur Specific Paulding 1.021 (1.001-1.035) Urine Protein 2+ H (Negative) Urine Glucose (UA) Negative (Negative) Urine Ketones 2+ H (Negative) Urine Blood Negative (Negative) Urine Nitrite Negative (Negative) Urine Bilirubin 1+ H (Negative) Urine Urobilinogen 3.0 (<2.0) mg/dL Ur Leukocyte Esterase Trace H (Negative) Urine RBC 4 (0-5) /hpf Urine WBC 12 H (0-5) /hpf Ur Squamous Epith Cells 1 (0-4) /hpf Calcium Oxalate Crystal Rare H (None) /hpf Urine Bacteria Occasional H (None) /hpf Hyaline Casts 47 H (0-2) /lpf Urine Mucus Many H (None) /hpf Stool Occult Blood (Negative) Blood Type Blood Type Recheck Antibody Screen Spec Expiration Date Disposition <Nacho Eason - Last Filed: 10/11/17 16:22> <Sandra Plummer - Last Filed: 10/11/17 19:41> Clinical Impression: Abdominal pain, Nausea Disposition: HOME SELF-CARE Condition: Good Instructions: Abdominal Pain (ED) Prescriptions: Metoclopramide [Reglan] 5 mg PO ACHS #15 tab traMADol HCL [Ultram] 50 mg PO Q12H PRN #20 tab PRN Reason: Pain Referrals: Vidal Tate MD [STAFF PHYSICIAN] - 1-2 days
[2017-10-11 16:12] LABS: Anisocytosis Slight; Basophils % (A) 0 %; Eosinophils # (A) 0.3 k/uL (0-0.7); Eosinophils % (A) 3 %; HCT 40.7 % (34.0-46.0); HGB 12.9 gm/dL (11.4-16.0); Hypochromasia Slight; Lymphocytes # (A) 1.9 k/uL (1.0-4.8); Lymphocytes % (A) 23 %; MCH 29.7 pg (25.0-35.0); MCHC 31.6 g/dL (31.0-37.0); MCV 94.1 fL (80.0-100.0); Mean Platelet Volume 8.1; Monocytes # (A) 0.4 k/uL (0-1.0); Monocytes % (A) 5 %; Neutrophils # (A) 5.7 k/uL (1.3-7.7); Neutrophils % (A) 67 %; Platelet Count 129 k/uL (150-450); RBC 4.33 m/uL (3.80-5.40); WBC 8.5 k/uL (3.8-10.6)
[2017-10-11 16:14] LABS: Albumin 4.2 g/dL (3.5-5.0); Calcium 10.2 mg/dL (8.4-10.2); Magnesium 1.9 mg/dL (1.6-2.3); Potassium 3.9 mmol/L (3.5-5.1); Total Bilirubin 0.5 mg/dL (0.2-1.3); Total Protein 7.4 g/dL (6.3-8.2)
[2017-10-11 16:30] LABS: Creatine Kinase MB 0.9 ng/mL (0.0-2.4); Troponin I 0.019 ng/mL (0.000-0.034)
--- NOTE | 2017-10-11 16:47 | XR ---
EXAMINATION TYPE: XR chest 2V DATE OF EXAM: 10/11/2017 COMPARISON: Chest x-ray September 11, 2017 HISTORY: Cough TECHNIQUE: Frontal and lateral views of the chest are obtained. FINDINGS: Underlying emphysematous changes redemonstrated. There is no focal air space opacity, pleu ral effusion, or pneumothorax seen. The cardiac silhouette size is stable and upper limits of normal with atherosclerotic and ectatic thoracic aorta. The osseous structures are demineralized. There i s partial visualization of stent graft midabdomen left of midline. IMPRESSION : Chronic emphysematous changes without acute pulmonary process currently.
[2017-10-11] MEDS ORDERED: HYDROmorphone 0.5 MG/0.5 ML SYRINGE IVP STA (17:05)
[2017-10-11 18:05] LABS: Appearance,Urine Cloudy (Clear); Bacteria,Urine Occasional /hpf; Bilirubin,Urine 1+ (Negative); Blood,Urine Negative (Negative); Calcium Oxalate Crystals,Urine Rare /hpf; Color,Urine Yellow; Glucose,Urine (UA) Negative (Negative); Hyaline Casts,Urine 47 /lpf (0-2); Ketones,Urine 2+ (Negative); Leukocyte Esterase,Urine Trace (Negative); Mucus,Urine Many /hpf; Nitrite,Urine Negative (Negative); Protein,Urine 2+ (Negative); RBC,Urine 4 /hpf (0-5); Specific Gravity,Urine 1.021 (1.001-1.035); Squamous Epithelial Cell,Urine 1 /hpf (0-4); WBC,Urine 12 /hpf (0-5)
[2017-10-11] MEDS ORDERED: SODIUM CHLORIDE 0.9% 500 ML IV ONE (18:31)
[2017-10-11] MEDS ORDERED: RX INFO: IV CONTRAST WAS GIVEN 1 EACH MISC MISCELLANE PRN (18:31)
[2017-10-11] MEDS ORDERED: HYDROmorphone 2 MG/ML 1 ML SYRINGE IVP STA (18:33)
[2017-10-11] MEDS ORDERED: SODIUM CHLORIDE 0.9% 1,000 ML IV SCH (18:45)
--- NOTE | 2017-10-11 19:30 | CT ---
EXAMINATION TYPE: CT abdomen pelvis wo con DATE OF EXAM: 10/11/2017 HISTORY: Dyspnea, nausea and vomiting for 2 days. Painful area around umbilicus. CT DLP: 232.3 mGycm. Automated Exposure Control for Dose Reduction was Utilized. TECHNIQUE: CT scan of the abdomen and pelvis is performed without oral or IV contrast. COMPARISON: CT abdomen and pelvis from September 11, 2017. FINDINGS: Within the limitations of a non-contrast study, the following observations are made. Patie nt has very little intra-abdominal fat making evaluation suboptimal. LUNG BASES: Emphysematous change in lung bases is present. There is stable tiny pericardial effusion anteriorly and inferiorly. There is coronary artery calcification or stent in the RCA distribution. E levated right hemidiaphragm is redemonstrated LIVER/GB: Gallbladder has distended margins without surrounding inflammatory change. Contracted or em pty stomach is noted. PANCREAS: Some diffuse fat replaced atrophy of pancreas is redemonstrated. SPLEEN: No significant abnormality is seen. ADRENALS: No significant abnormality is seen. KIDNEYS: No significant abnormality is seen. BOWEL: No significant abnormality is seen. GENITAL ORGANS: Uterus is surgically absent or markedly atrophic in appearance. LYMPH NODES: No greater than 1cm abdominal or pelvic lymph nodes are appreciated. OSSEOUS STRUCTURES: Exaggerated lumbar lordosis is redemonstrated with mild multilevel spurring. Ther e is multilevel facet arthropathy mid to lower lumbar levels. There is redemonstration of avascular n ecrosis bilateral femoral hips with sclerotic lines through head. OTHER: There is aortobiiliac stent graft is redemonstrated. Aneurysm of the abdominal aorta measuring up to 3.8 cm in size image 42 is redemonstrated. Surgical clips bilateral groin region are seen. IMPRESSION: No bowel obstruction is seen. No significant change from prior study noted.
[2017-10-11 19:57] VITALS: BP 146/75; PULSE 90; RESP 16; TEMP 98
== END 2017-10-11 19:57 | disposition home or self-care (01) ==
LOC: EC 15:36
DX: R11.2 Nausea with vomiting, unspecified (principal); R10.9 Unspecified abdominal pain; R06.02 Shortness of breath; K92.2 Gastrointestinal hemorrhage, unspecified; J44.9 Chronic obstructive pulmonary disease, unspecified; K21.9 Gastro-esophageal reflux disease without esophagitis; I10 Essential (primary) hypertension; I25.2 Old myocardial infarction; I71.4 Abdominal aortic aneurysm, without rupture; G47.30 Sleep apnea, unspecified; F41.9 Anxiety disorder, unspecified; F32.9 Major depressive disorder, single episode, unspecified; F17.200 Nicotine dependence, unspecified, uncomplicated; Z86.718 Personal history of other venous thrombosis and embolism; Z90.710 Acquired absence of both cervix and uterus; Z98.890 Other specified postprocedural states; Z99.89 Dependence on other enabling machines and devices; Z79.51 Long term (current) use of inhaled steroids; Z79.899 Other long term (current) drug therapy; Z88.0 Allergy status to penicillin; Z88.1 Allergy status to other antibiotic agents; Z88.2 Allergy status to sulfonamides; Z88.5 Allergy status to narcotic agent; Z88.6 Allergy status to analgesic agent; Z88.8 Allergy status to other drugs, medicaments and biological substances; Z91.018 Allergy to other foods; Z91.030 Bee allergy status; Z91.040 Latex allergy status; Z91.041 Radiographic dye allergy status; Z91.048 Other nonmedicinal substance allergy status
CPT/HCPCS: 36415; 93005; 86900; 86901; 80053; 82150; 82550; 82553; 83605; 83735; 84484; 85025; 86850; 82272; 81001; 87040; 71046; 74176; 99285; 96374; 96361; J1170

== ENCOUNTER 2017-10-30 13:47 | Inpatient (IN) | payer MEDICARE ==
--- NOTE | 2017-10-30 15:20 | XR ---
EXAMINATION TYPE: XR KUB DATE OF EXAM: 10/30/2017 COMPARISON: 01/08/2012 INDICATION: Abdominal pain nausea TECHNIQUE: Single view abdomen upright view FINDINGS: There is a normal bowel gas pattern. No suspicious air-fluid levels or differential air-fluid levels are present. No free air is present. Psoas margins are normal. No organomegaly is present. Aortic stent is evident. IMPRESSION: 1. Nonspecific abdomen.
[2017-10-30 15:21] LABS: Appearance,Urine Cloudy (Clear); Bacteria,Urine Rare /hpf; Bilirubin,Urine 1+ (Negative); Blood,Urine Negative (Negative); Color,Urine Dark Brown; Glucose,Urine (UA) Negative (Negative); Hyaline Casts,Urine 16 /lpf (0-2); Ketones,Urine 2+ (Negative); Leukocyte Esterase,Urine Negative (Negative); Mucus,Urine Moderate /hpf; Nitrite,Urine Negative (Negative); Protein,Urine 1+ (Negative); RBC,Urine 3 /hpf (0-5); Specific Gravity,Urine 1.027 (1.001-1.035); Squamous Epithelial Cell,Urine 1 /hpf (0-4); WBC,Urine 4 /hpf (0-5)
[2017-10-30 15:24] LABS: Albumin 4.7 g/dL (3.5-5.0); Calcium 10.2 mg/dL (8.4-10.2); Potassium 3.8 mmol/L (3.5-5.1); Total Bilirubin 0.7 mg/dL (0.2-1.3)
[2017-10-30] MEDS ORDERED: RX INFO: IV CONTRAST WAS GIVEN 1 EACH MISC MISCELLANE PRN (15:24)
[2017-10-30] MEDS ORDERED: ONDANSETRON 4 MG/2 ML VIAL IVP STA (15:24)
[2017-10-30] MEDS ORDERED: PANTOPRAZOLE 40 MG/10 ML VIAL IVP STA (15:24)
[2017-10-30] MEDS ORDERED: SODIUM CHLORIDE 0.9% 500 ML IV STA (15:24)
[2017-10-30] MEDS ORDERED: MORPHINE SULFATE 4 MG/ML SYRINGE IV STA (15:24)
[2017-10-30] MEDS ORDERED: SODIUM CHLORIDE 0.9% 1,000 ML IV STA ×2 (15:24)
--- NOTE | 2017-10-30 15:44 | ED ---
General Adult HPI - General Chief complaint: Abdominal Pain Stated complaint: Possible bowel obstruction Time Seen by Provider: 10/30/17 15:24 Source: patient, RN notes reviewed, old records reviewed Mode of arrival: wheelchair Limitations: no limitations - History of Present Illness Initial comments: This is a 67-year-old female to the ER for reevaluation of bowel pain nausea vomiting decreased bowel. Patient does have history of hysterectomy. No other significant surgeries. She follows with Dr. Peck regarding abdominal pain, has had an upper GI. No significant found cause found. Has had her gallbladder significantly evaluated with no cause found. Patient states he feels very nauseous and currently states has severe severe severe abdominal pain. No fevers. No bowel movement since the sixth - Related Data Home Medications Medication Instructions Recorded Confirmed Atenolol [Tenormin] 12.5 mg PO HS 12/27/13 10/30/17 Dexlansoprazole [Dexilant] 60 mg PO DAILY 12/27/13 10/30/17 Sucralfate [Carafate] 1 gm PO ACHS 12/27/13 10/30/17 Pramipexole [Mirapex] 0.125 mg PO HS 09/12/14 10/30/17 Tiotropium 18 Mcg/Puff [Spiriva] 1 cap INHALATION RT-HS 09/12/14 10/30/17 Topiramate [Topamax] 50 mg PO BID 05/03/15 10/30/17 Cholecalciferol [Vitamin D3] 1,000 unit PO DAILY 02/13/17 10/30/17 DULoxetine HCL [Cymbalta] 30 mg PO DAILY 07/18/17 10/30/17 DULoxetine HCL [Cymbalta] 60 mg PO HS 07/18/17 10/30/17 Calcium Carbonate [Calcium] 600 mg PO BID 08/25/17 10/30/17 traZODone HCL [Desyrel] 50 mg PO HS 09/09/17 10/30/17 Acetaminophen [Tylenol] 650 mg PO Q6H PRN 10/11/17 10/30/17 Albuterol Nebulized [Ventolin 2.5 mg INHALATION RT-Q8H PRN 10/11/17 10/30/17 Nebulized] Artificial Tears-Hypromellose 1 drops BOTH EYES BID 10/11/17 10/30/17 [Artificial Tear Drops] Budesonide [Pulmicort] 0.5 mg INHALATION RT-Q12H 10/11/17 10/30/17 Docosanol [Abreva] 1 applic TP BID 10/11/17 10/30/17 Ipratropium-Albuterol Nebulize 3 ml INHALATION RT-Q6H 10/11/17 10/30/17 [Duoneb 0.5 mg-3 mg/3 ml Soln] Meclizine [Antivert] 12.5 mg PO Q8H PRN 10/11/17 10/30/17 Oxybutynin Xl [Ditropan Xl] 5 mg PO BID 10/11/17 10/30/17 cloNIDine HCL [Catapres] 0.1 mg PO Q8H PRN 10/11/17 10/30/17 Previous Rx's Medication Instructions Recorded Melatonin 5 mg PO HS #30 tablet 02/16/17 Nitroglycerin Sl Tabs [Nitrostat] 0.4 mg SUBLINGUAL Q5M PRN #25 tab 07/22/17 Aspirin 81 mg PO DAILY chew 09/02/17 Polyethylene Glycol 3350 [Miralax] 17 gm PO BID #0 powd.pack 09/02/17 Pravastatin Sodium [Pravachol] 80 mg PO HS #0 tab 09/02/17 guaiFENesin [Mucinex] 1,200 mg PO Q12HR tablet.er 09/02/17 ALPRAZolam [Xanax] 1 mg PO TID #90 tablet 09/12/17 Butalb/APAP/Caff 50-325-40Mg 0.5 tab PO Q4H PRN #60 tab 09/12/17 [Fioricet 50-325-40] Metoclopramide [Reglan] 5 mg PO ACHS #15 tab 10/11/17 traMADol HCL [Ultram] 50 mg PO Q12H PRN #20 tab 10/11/17 Allergies Allergy/AdvReac Type Severity Reaction Status Date / Time naproxen sodium [From Aleve] Allergy Severe Anaphylaxis Verified 10/30/17 15:23 adhesive Allergy Rash/Hives Verified 10/30/17 15:23 cinnamon [Cinnamon] Allergy Dyspnea Verified 10/30/17 15:23 clindamycin Allergy Anaphylaxis Verified 10/30/17 15:23 codeine Allergy Nausea & Verified 10/30/17 15:23 Vomiting gentamicin [Gentamicin] Allergy SWELLING Verified 10/30/17 15:23 OF FACE W/ EYE DROPS paola Allergy Dyspnea Verified 10/30/17 15:23 latex Allergy Rash/Hives Verified 10/30/17 15:23 levothyroxine sodium Allergy Unknown Verified 10/30/17 15:23 [From Synthroid] montelukast sodium Allergy Wheezing Verified 10/30/17 15:23 [From Singulair] pantoprazole sodium Allergy Abdominal Verified 10/30/17 15:23 [From Protonix] Pain Penicillins Allergy Rash/Hives Verified 10/30/17 15:23 red dye Allergy Abdominal Verified 10/30/17 15:23 Pain Sulfa (Sulfonamide Allergy Swelling Verified 10/30/17 15:23 Antibiotics) IN MOUTH sulfamethoxazole Allergy swelling Verified 10/30/17 15:23 [From Bactrim] tongue trimethoprim [From Bactrim] Allergy Swelling Verified 10/30/17 15:23 venom-honey bee Allergy Dyspnea Verified 10/30/17 15:23 [bee venom (honey bee)] BANDAIDS Allergy Rash/Hives Uncoded 10/30/17 13:57 tomatoes AdvReac Abdominal Uncoded 10/30/17 13:57 Pain Review of Systems ROS Statement: Those systems with pertinent positive or pertinent negative responses have been documented in the HPI. ROS Other: All systems not noted in ROS Statement are negative. 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 amenia-iron infusons x2 Last Myocardial Infarction Date:: 06/2011 History of Any Multi-Drug Resistant Organisms: None Reported Past Surgical History: Bladder Surgery, Heart Catheterization With Stent, Hysterectomy, Orthopedic Surgery Additional Past Surgical History / Comment(s): HEART STENT 2010. AAA STENT 2005. VARICOSE VEIN STRIPPING R leg. EXP LAP. LIVER/BX, HAD RT FOOT SURGERY D/ T SALMONELLA INFECTION. R SHOULDER SCOPE. COLONOSCOPY-NORMAL. BLADDER SUSPENSIONS. Past Anesthesia/Blood Transfusion Reactions: No Reported Reaction Date of Last Stent Placement:: 2010 Past Psychological History: Anxiety, Depression, Panic Disorder Smoking Status: Current every day smoker Past Alcohol Use History: None Reported Past Drug Use History: None Reported - Past Family History Brother(s) Family Medical History: Coronary Artery Disease (CAD), Myocardial Infarction ([place] ) Father Additional Family Medical History / Comment(s): FROM CIRRHOSIS OF THE LIVER Mother Family Medical History: COPD Additional Family Medical History / Comment(s): FROM AAA, HAD HX TB General Exam Limitations: no limitations General appearance: alert, in no apparent distress, anxious, cachectic Head exam: Present: atraumatic, normocephalic, normal inspection Eye exam: Present: normal appearance, PERRL, EOMI. Absent: scleral icterus, conjunctival injection, periorbital swelling ENT exam: Present: normal exam, mucous membranes moist Neck exam: Present: normal inspection. Absent: tenderness, meningismus, lymphadenopathy Respiratory exam: Present: normal lung sounds bilaterally. Absent: respiratory distress, wheezes, rales, rhonchi, stridor Cardiovascular Exam: Present: regular rate, normal rhythm, normal heart sounds. Absent: systolic murmur, diastolic murmur, rubs, gallop, clicks GI/Abdominal exam: Present: soft, tenderness, guarding, normal bowel sounds. Absent: distended, rebound, rigid Extremities exam: Present: normal inspection, full ROM, normal capillary refill. Absent: tenderness, pedal edema, joint swelling, calf tenderness Back exam: Present: normal inspection Neurological exam: Present: alert, oriented X3, CN II-XII intact Psychiatric exam: Present: normal affect, normal mood Skin exam: Present: warm, dry, intact, normal color. Absent: rash Course Vital Signs 10/30/17 13:52 Temperature 98.2 F Pulse Rate 89 Respiratory 16 Rate Blood Pressure 94/53 O2 Sat by Pulse 98 Oximetry - Reevaluation(s) Reevaluation #1: 10/30/17 16:42 Patient has adequate pain control Reevaluation #2: 10/30/17 16:42 On return from CAT scan patient having shortness of breath, likely IV diarrhea reaction, patient given steroids and antihistamines and breathing treatment here in the ER, improved Reevaluation #3: 10/30/17 16:42 Patient symptoms are improving again Medical Decision Making - Medical Decision Making 67 female the ER for evaluation of persistent nausea vomiting. To be admitted for pain control symptom management and further treatment and evaluation regarding chronic abdominal pain - Lab Data Result diagrams: 10/30/17 15:28 10/30/17 14:56 Lab Results 10/30/17 10/30/17 10/30/17 Range/Units 14:56 14:56 15:28 WBC 8.3 (3.8-10.6) k/uL RBC 4.15 (3.80-5.40) m/uL Hgb 12.8 (11.4-16.0) gm/dL Hct 38.1 (34.0-46.0) % MCV 91.8 (80.0-100.0) fL MCH 30.8 (25.0-35.0) pg MCHC 33.5 (31.0-37.0) g/dL RDW 15.8 H (11.5-15.5) % Plt Count 185 (150-450) k/uL Neutrophils % 58 % Lymphocytes % 23 % Monocytes % 4 % Eosinophils % 12 % Basophils % 1 % Neutrophils # 4.8 (1.3-7.7) k/uL Lymphocytes # 1.9 (1.0-4.8) k/uL Monocytes # 0.4 (0-1.0) k/uL Eosinophils # 1.0 H (0-0.7) k/uL Basophils # 0.1 (0-0.2) k/uL Sodium 141 (137-145) mmol/L Potassium 3.8 (3.5-5.1) mmol/L Chloride 103 (98-107) mmol/L Carbon Dioxide 22 (22-30) mmol/L Anion Gap 16 mmol/L BUN 18 H (7-17) mg/dL Creatinine 1.00 (0.52-1.04) mg/dL Est GFR (CKD-EPI)AfAm 67 (>60 ml/min/1.73 sqM) Est GFR (CKD-EPI)NonAf 58 (>60 ml/min/1.73 sqM) Glucose 77 (74-99) mg/dL Calcium 10.2 (8.4-10.2) mg/dL Total Bilirubin 0.7 (0.2-1.3) mg/dL AST 36 (14-36) U/L ALT 17 (9-52) U/L Alkaline Phosphatase 66 (38-126) U/L Total Protein 8.0 (6.3-8.2) g/dL Albumin 4.7 (3.5-5.0) g/dL Amylase 65 (30-110) U/L Lipase 103 (23-300) U/L Urine Color Dark Brown Urine Appearance Cloudy H (Clear) Urine pH 6.0 (5.0-8.0) Ur Specific [place] 1.027 (1.001-1.035) Urine Protein 1+ H (Negative) Urine Glucose (UA) Negative (Negative) Urine Ketones 2+ H (Negative) Urine Blood Negative (Negative) Urine Nitrite Negative (Negative) Urine Bilirubin 1+ H (Negative) Urine Urobilinogen 6.0 (<2.0) mg/dL Ur Leukocyte Esterase Negative (Negative) Urine RBC 3 (0-5) /hpf Urine WBC 4 (0-5) /hpf Ur Squamous Epith Cells 1 (0-4) /hpf Urine Bacteria Rare H (None) /hpf Hyaline Casts 16 H (0-2) /lpf Urine Mucus Moderate H (None) /hpf - Radiology Data Radiology results: report reviewed (JK be negative CT abdomen pelvis likely pyelonephritis), image reviewed Disposition Clinical Impression: Weakness, UTI (urinary tract infection), Pyelonephritis, Acute exacerbation of chronic obstructive airways disease, Intractable nausea and vomiting Disposition: ADMITTED IP TO THIS [facility] Condition: Fair Referrals: Jenaro Colbert DO [Primary Care Provider] - 1-2 days
[2017-10-30 15:51] LABS: Basophils # (A) 0.1 k/uL (0-0.2); Basophils % (A) 1 %; Eosinophils % (A) 12 %; HCT 38.1 % (34.0-46.0); HGB 12.8 gm/dL (11.4-16.0); Lymphocytes # (A) 1.9 k/uL (1.0-4.8); Lymphocytes % (A) 23 %; MCH 30.8 pg (25.0-35.0); MCHC 33.5 g/dL (31.0-37.0); MCV 91.8 fL (80.0-100.0); Mean Platelet Volume 7.9; Monocytes # (A) 0.4 k/uL (0-1.0); Monocytes % (A) 4 %; Neutrophils # (A) 4.8 k/uL (1.3-7.7); Neutrophils % (A) 58 %; Platelet Count 185 k/uL (150-450); RBC 4.15 m/uL (3.80-5.40); RDW 15.8 % (11.5-15.5); WBC 8.3 k/uL (3.8-10.6)
[2017-10-30] MEDS ORDERED: EPINEPHrine 1 MG/ML 1 ML AMP IV STA (16:14)
[2017-10-30] MEDS ORDERED: FAMOTIDINE 20 MG/2 ML VIAL IV STA (16:14)
[2017-10-30] MEDS ORDERED: methylPREDNISolone SOD SUCCI 125 MG/2 ML VIAL IV STA (16:14)
[2017-10-30] MEDS ORDERED: diphenhydrAMINE 50 MG/ML 1 ML VIAL IVP STA (16:14)
--- NOTE | 2017-10-30 16:36 | CT ---
EXAMINATION TYPE: CT abdomen pelvis w con DATE OF EXAM: 10/30/2017 COMPARISON: 10/11/2017 HISTORY: 67 year-old female no bowel movement x 9 days. Generalized abdominal pain. TECHNIQUE: Contiguous axial scanning of the abdomen and pelvis following administration of 100 ml Omn ipaque 300 IV contrast. Delayed images through the kidneys and coronal/sagittal reconstructions perf ormed. CT DLP: 257.30 mGycm Automated exposure control for dose reduction was used. FINDINGS: Heart is normal size without pericardial effusion. Emphysematous changes in the visualized lower lung s without pleural effusion. Ectatic lower descending thoracic aorta 2.9 cm. Extensive atherosclerotic changes throughout the abdo helen aorta with endovascular aorto biiliac stent grafts. There is a focal aneurysm at the landing zone of the left common iliac artery stent graft measuring 3 .2 cm, coronal image 30 possible severe stenosis just beyond, coronal image 33. Aneurysm landing zone of the right common iliac artery measures 2.6 cm with a moderate focal stenosis just beyond. The stent graft remains patent but the [place] sac measuring 4.4 cm, unchanged. No focal liver lesion. Gallbladder is mildly hydropic measuring 4.2 cm wide but without surrounding i nflammation. Portal venous system is patent. No biliary ductal dilatation seen. Adrenal glands within normal limits. Subcentimeter hypodensity posterior upper pole left kidney too s mall for accurate CT characterization, likely cyst. Spleen within normal limits. Pancreas is atrophic. There is patchy hypodensity and striated nephrogram throughout the right kidney on delayed kidney wendie ges though with symmetric excretion of contrast. No dilated small bowel, free fluid, or free air. Normal appendix. Moderate stool in the sigmoid colon. No pericolonic inflammatory change. Bladder nondistended. Uterus surgically absent. No adnexal mass. No abnormal fluid collection in the pelvis. 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 This was present on 10/11/19 18. Degenerative changes lower lumbar spine. IMPRESSION: 1. CT FINDINGS SUGGEST RIGHT-SIDED PYELONEPHRITIS. CLINICALLY CORRELATE. 2. MILD GALLBLADDER HYDROPS COULD RELATE TO FASTING STATE. IF RIGHT UPPER QUADRANT PAIN OR CONCERN FO R EARLY ACUTE CHOLECYSTITIS, FOLLOW-UP ULTRASOUND OR HIDA SCAN. 3. LEFT GREATER THAN RIGHT ANEURYSMS AT THE COMMON ILIAC ARTERY LANDING ZONES FOR THE PATIENT'S AORTO BIILIAC STENT GRAFT. THESE ANEURYSMS MEASURE 3.2 AND 2.6 CM RESPECTIVELY. OVERALL [place] TRIBES SAC SIZE AT 4.4 CM IS UNCHANGED. FOLLOW-UP INDICATED.
[2017-10-30] MEDS ORDERED: cefTRIAXone IN SWFI 2,000 MG/20 ML SYRINGE IVP STA (16:39)
[2017-10-30] MEDS ORDERED: MORPHINE SULFATE 4 MG/ML SYRINGE IVP PRN (16:40)
[2017-10-30] MEDS ORDERED: SODIUM CHLORIDE 0.9% 1,000 ML IV ONE (16:44)
[2017-10-30] MEDS ORDERED: IPRATROPIUM-ALBUTEROL 3 ML NEB INHALATION SCH (20:00)
[2017-10-30 20:39] VITALS: BMI 17.9
[2017-10-30] MEDS ORDERED: cefTRIAXone 1,000 MG VIAL (IM USE) IM SCH (21:00)
[2017-10-30] MEDS ORDERED: cloNIDine HCL 0.1 MG TAB PO PRN (21:33)
[2017-10-30] MEDS ORDERED: traMADol 50 MG TAB PO PRN (21:33)
[2017-10-30] MEDS ORDERED: ALBUTEROL NEBULIZED 2.5 MG/3 ML INHALATION PRN (21:33)
[2017-10-30] MEDS ORDERED: MECLIZINE 12.5 MG TAB PO PRN (21:33)
[2017-10-30] MEDS: ALPRAZolam 1 MG TAB PO SCH (23:59)
[2017-10-31] MEDS: POLYETHYLENE GLYCOL 3350 17 GM POWD.PACK PO SCH ×3 (00:01→20:06)
[2017-10-31] MEDS: methylPREDNISolone SOD SUCCI 125 MG/2 ML VIAL IV SCH ×2 (00:01→06:22)
[2017-10-31] MEDS: TOPIRAMATE 25 MG TAB PO SCH ×3 (00:01→20:07)
[2017-10-31] MEDS: ONDANSETRON 4 MG/2 ML VIAL IVP PRN (00:08)
[2017-10-31] MEDS: IPRATROPIUM-ALBUTEROL 3 ML NEB INHALATION SCH ×5 (07:27→20:37)
[2017-10-31] MEDS: BUDESONIDE 0.5 MG/2 ML NEBU INHALATION SCH ×2 (07:28→20:37)
[2017-10-31] MEDS ORDERED: PANTOPRAZOLE 40 MG/10 ML VIAL IVP SCH (09:00)
[2017-10-31] MEDS ORDERED: NON-FORMULARY DRUG (Dexlansoprazole [Dexilant] 60 MG) PO SCH (09:00)
[2017-10-31] MEDS: SUCRALFATE 1 GM TAB PO SCH ×4 (09:09→20:07)
[2017-10-31] MEDS: METOCLOPRAMIDE 5 MG TAB PO SCH ×3 (09:09→16:52)
[2017-10-31] MEDS: OXYBUTYNIN XL 5 MG TAB.ER.24 PO SCH ×2 (09:10→20:06)
[2017-10-31] MEDS: DULoxetine HCL 30 MG CAPSULE.DR PO SCH (09:10)
[2017-10-31] MEDS: ALPRAZolam 1 MG TAB PO SCH ×2 (09:10→16:00)
[2017-10-31] MEDS: guaiFENesin 600 MG TABLET.ER PO SCH ×2 (09:10→20:04)
[2017-10-31] MEDS: ARTIFICIAL TEARS-HYPROMELLOSE DROPS 15 ML BTL BOTH EYES SCH ×2 (10:22→20:02)
[2017-10-31] MEDS: cefTRIAXone IN SWFI 1,000 MG/10 ML SYRINGE IVP SCH ×2 (10:22→20:03)
--- NOTE | 2017-10-31 12:42 | P.GSCN ---
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 amenia-iron infusons x2 Last Myocardial Infarction Date:: 06/2011 History of Any Multi-Drug Resistant Organisms: None Reported Past Surgical History: Bladder Surgery, Heart Catheterization With Stent, Hysterectomy, Orthopedic Surgery Additional Past Surgical History / Comment(s): HEART STENT 2010. AAA STENT 2005. VARICOSE VEIN STRIPPING R leg. EXP LAP. LIVER/BX, HAD RT FOOT SURGERY D/ T SALMONELLA INFECTION. R SHOULDER SCOPE. COLONOSCOPY-NORMAL. BLADDER SUSPENSIONS. Past Anesthesia/Blood Transfusion Reactions: No Reported Reaction Date of Last Stent Placement:: 2010 Past Psychological History: Anxiety, Depression, Panic Disorder Additional Psychological History / Comment(s): PT RESIDES WITH HER SPOUSE WHO IS IN HIS 80'S. PT USES NO ASSISTIVE DEVICE. SHE NO LONGER DRIVES, FAMILY TAKES THEM TO THEIR APPTS. THEY HAVE PERSONAL HOME CARE(visitng nurse). pt stated has home 02 3liters n/c, has cane/walker/wheel chair if needed. shower chair Smoking Status: Current every day smoker Past Alcohol Use History: None Reported Additional Past Alcohol Use History / Comment(s): She was a smoker starting in 1956 in half to one pack per day and date she quit in June but on last admission in July she was smoking half a pack per day. No illicit drug use , and no alcohol abuse. Past Drug Use History: None Reported - Past Family History Brother(s) Family Medical History: Coronary Artery Disease (CAD), Myocardial Infarction ([place] ) Father Additional Family Medical History / Comment(s): FROM CIRRHOSIS OF THE LIVER Mother Family Medical History: COPD Additional Family Medical History / Comment(s): FROM AAA, HAD HX TB Medications and Allergies Home Medications Medication Instructions Recorded Confirmed Type Atenolol [Tenormin] 12.5 mg PO HS 12/27/13 10/30/17 History Dexlansoprazole [Dexilant] 60 mg PO DAILY 12/27/13 10/30/17 History Sucralfate [Carafate] 1 gm PO ACHS 12/27/13 10/30/17 History Pramipexole [Mirapex] 0.125 mg PO HS 09/12/14 10/30/17 History Tiotropium 18 Mcg/Puff [Spiriva] 1 cap INHALATION RT-HS 09/12/14 10/30/17 History Topiramate [Topamax] 50 mg PO BID 05/03/15 10/30/17 History Cholecalciferol [Vitamin D3] 1,000 unit PO DAILY 02/13/17 10/30/17 History Melatonin 5 mg PO HS #30 tablet 02/16/17 10/30/17 Rx DULoxetine HCL [Cymbalta] 30 mg PO DAILY 07/18/17 10/30/17 History DULoxetine HCL [Cymbalta] 60 mg PO HS 07/18/17 10/30/17 History Nitroglycerin Sl Tabs [Nitrostat] 0.4 mg SUBLINGUAL Q5M PRN #25 tab 07/22/17 Rx Calcium Carbonate [Calcium] 600 mg PO BID 08/25/17 10/30/17 History Aspirin 81 mg PO DAILY chew 09/02/17 10/30/17 Rx Polyethylene Glycol 3350 [Miralax] 17 gm PO BID #0 powd.pack 09/02/17 10/30/17 Rx Pravastatin Sodium [Pravachol] 80 mg PO HS #0 tab 09/02/17 10/30/17 Rx guaiFENesin [Mucinex] 1,200 mg PO Q12HR tablet.er 09/02/17 10/30/17 Rx traZODone HCL [Desyrel] 50 mg PO HS 09/09/17 10/30/17 History ALPRAZolam [Xanax] 1 mg PO TID #90 tablet 09/12/17 10/30/17 Rx Butalb/APAP/Caff 50-325-40Mg 0.5 tab PO Q4H PRN #60 tab 09/12/17 10/30/17 Rx [Fioricet 50-325-40] Acetaminophen [Tylenol] 650 mg PO Q6H PRN 10/11/17 10/30/17 History Albuterol Nebulized [Ventolin 2.5 mg INHALATION RT-Q8H PRN 10/11/17 10/30/17 History Nebulized] Artificial Tears-Hypromellose 1 drops BOTH EYES BID 10/11/17 10/30/17 History [Artificial Tear Drops] Budesonide [Pulmicort] 0.5 mg INHALATION RT-Q12H 10/11/17 10/30/17 History Docosanol [Abreva] 1 applic TP BID 10/11/17 10/30/17 History Ipratropium-Albuterol Nebulize 3 ml INHALATION RT-Q6H 10/11/17 10/30/17 History [Duoneb 0.5 mg-3 mg/3 ml Soln] Meclizine [Antivert] 12.5 mg PO Q8H PRN 10/11/17 10/30/17 History Metoclopramide [Reglan] 5 mg PO ACHS #15 tab 10/11/17 10/30/17 Rx Oxybutynin Xl [Ditropan Xl] 5 mg PO BID 10/11/17 10/30/17 History cloNIDine HCL [Catapres] 0.1 mg PO Q8H PRN 10/11/17 10/30/17 History traMADol HCL [Ultram] 50 mg PO Q12H PRN #20 tab 10/11/17 10/30/17 Rx Allergies Allergy/AdvReac Type Severity Reaction Status Date / Time naproxen sodium [From Aleve] Allergy Severe Anaphylaxis Verified 10/30/17 15:23 adhesive Allergy Rash/Hives Verified 10/30/17 15:23 cinnamon [Cinnamon] Allergy Dyspnea Verified 10/30/17 15:23 clindamycin Allergy Anaphylaxis Verified 10/30/17 15:23 codeine Allergy Nausea & Verified 10/30/17 15:23 Vomiting gentamicin [Gentamicin] Allergy SWELLING Verified 10/30/17 15:23 OF FACE W/ EYE DROPS paola Allergy Dyspnea Verified 10/30/17 15:23 Iodinated Contrast- Oral and Allergy Dyspnea Verified 10/30/17 18:27 IV Dye latex Allergy Rash/Hives Verified 10/30/17 15:23 levothyroxine sodium Allergy Unknown Verified 03/15/18 15:23 [From Synthroid] montelukast sodium Allergy Wheezing Verified 10/30/17 15:23 [From Singulair] pantoprazole sodium Allergy Abdominal Verified 10/30/17 15:23 [From Protonix] Pain Penicillins Allergy Rash/Hives Verified 10/30/17 15:23 red dye Allergy Abdominal Verified 10/30/17 15:23 Pain Sulfa (Sulfonamide Allergy Swelling Verified 10/30/17 15:23 Antibiotics) IN MOUTH sulfamethoxazole Allergy swelling Verified 10/30/17 15:23 [From Bactrim] tongue trimethoprim [From Bactrim] Allergy Swelling Verified 10/30/17 15:23 venom-honey bee Allergy Dyspnea Verified 10/30/17 15:23 [bee venom (honey bee)] BANDAIDS Allergy Rash/Hives Uncoded 10/30/17 13:57 tomatoes AdvReac Abdominal Uncoded 10/30/17 13:57 Pain Surgical - Exam Vital Signs Temp Pulse Resp BP Pulse Ox 98.2 F 89 16 94/53 98 10/30/17 13:52 10/30/17 13:52 10/30/17 13:52 10/30/17 13:52 10/30/17 13:52 Results - Labs 10/30/17 15:28 10/30/17 14:56 Abnormal Lab Results - Last 24 Hours (Table) 10/30/17 10/30/17 10/30/17 Range/Units 14:56 14:56 15:28 RDW 15.8 H (11.5-15.5) % Eosinophils # 1.0 H (0-0.7) k/uL BUN 18 H (7-17) mg/dL Urine Appearance Cloudy H (Clear) Urine Protein 1+ H (Negative) Urine Ketones 2+ H (Negative) Urine Bilirubin 1+ H (Negative) Urine Bacteria Rare H (None) /hpf Hyaline Casts 16 H (0-2) /lpf Urine Mucus Moderate H (None) /hpf Diabetes panel 10/30/17 Range/Units 14:56 Sodium 141 (137-145) mmol/L Potassium 3.8 (3.5-5.1) mmol/L Chloride 103 (98-107) mmol/L Carbon Dioxide 22 (22-30) mmol/L BUN 18 H (7-17) mg/dL Creatinine 1.00 (0.52-1.04) mg/dL Glucose 77 (74-99) mg/dL Calcium 10.2 (8.4-10.2) mg/dL AST 36 (14-36) U/L ALT 17 (9-52) U/L Alkaline Phosphatase 66 (38-126) U/L Total Protein 8.0 (6.3-8.2) g/dL Albumin 4.7 (3.5-5.0) g/dL Calcium panel 10/30/17 Range/Units 14:56 Calcium 10.2 (8.4-10.2) mg/dL Albumin 4.7 (3.5-5.0) g/dL Pituitary panel 10/30/17 Range/Units 14:56 Sodium 141 (137-145) mmol/L Potassium 3.8 (3.5-5.1) mmol/L Chloride 103 (98-107) mmol/L Carbon Dioxide 22 (22-30) mmol/L BUN 18 H (7-17) mg/dL Creatinine 1.00 (0.52-1.04) mg/dL Glucose 77 (74-99) mg/dL Calcium 10.2 (8.4-10.2) mg/dL Adrenal panel 10/30/17 Range/Units 14:56 Sodium 141 (137-145) mmol/L Potassium 3.8 (3.5-5.1) mmol/L Chloride 103 (98-107) mmol/L Carbon Dioxide 22 (22-30) mmol/L BUN 18 H (7-17) mg/dL Creatinine 1.00 (0.52-1.04) mg/dL Glucose 77 (74-99) mg/dL Calcium 10.2 (8.4-10.2) mg/dL Total Bilirubin 0.7 (0.2-1.3) mg/dL AST 36 (14-36) U/L ALT 17 (9-52) U/L Alkaline Phosphatase 66 (38-126) U/L Total Protein 8.0 (6.3-8.2) g/dL Albumin 4.7 (3.5-5.0) g/dL
--- NOTE | 2017-10-31 13:09 | NM ---
Nuclear medicine hepatobiliary scan. HISTORY: Pain. DOSAGE: The patient received 1 micrograms of CCK and 4.4 mCi of Technetium 99m Choletec. FINDINGS: There is normal hepatic extraction. The gallbladder is seen by 30 minutes. Ejection fract ion is 97%. IMPRESSION: 1. Ejection fraction of 97% can occasionally be seen with hyperdynamic gallbladder. Correlate clinica lly.
--- NOTE | 2017-10-31 13:38 | P.GSCN ---
History of Present Illness Consult date: 10/31/17 History of present illness: 67-year-old thin cachectic looking older than stated age female presented to the emergency room for chief complaint of generalized abdominal pain nausea vomiting decrease appetite. Given the above clinical presentation the attending has requested a surgical eval states that she has seen Dr. Negron on September 23 in the office at that time was told not a candidate for any surgery that her gallbladder did not need to be addressed. According to the patient she had an upper GI done uncertain of the results there are no records in the computer is recuperating from her recent stay at an [facility] facility which she states she was discharged October 01 to home Patient is a poor historian patient actually has multiple complaints reporting a decrease appetite with diarrhea than reports she hasn't had a bowel movement since October 21. 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 Emergency room patient did have a computed tomography scan of the abdomen pelvis with contrast reviewing the computerized record in summary it showed findings to suggest right-sided pyelonephrosis mild gallbladder hydrops could be related to the fasting state with left greater than right aneurysm of the common iliac artery Patient did have a HIDA scan done this morning reviewing the computerized record indicated the EF 97% can be seen in hyperdynamic gallbladder normal hepatic extraction The labs on admission AST and ALT were not elevated lipase not elevated 103 and amylase 65 Review of Systems Essentially unremarkable except as mentioned in the present illness Past Medical History Past Medical History: Asthma, Chest Pain / Angina, COPD, Deep Vein Thrombosis ( DVT), GERD/Reflux, Hypertension, Liver Disease, Myocardial Infarction (ME), Musculoskeletal Disorder, Pneumonia, Sleep Apnea/CPAP/BIPAP, Vascular Disorder Additional Past Medical History / Comment(s): 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 amenia-iron infusons x2 Last Myocardial Infarction Date:: 06/2011 History of Any Multi-Drug Resistant Organisms: None Reported Past Surgical History: Bladder Surgery, Heart Catheterization With Stent, Hysterectomy, Orthopedic Surgery Additional Past Surgical History / Comment(s): HEART STENT 2010. AAA STENT 2005. VARICOSE VEIN STRIPPING R leg. EXP LAP. LIVER/BX, HAD RT FOOT SURGERY D/ T SALMONELLA INFECTION. R SHOULDER SCOPE. COLONOSCOPY-NORMAL. BLADDER SUSPENSIONS. Past Anesthesia/Blood Transfusion Reactions: No Reported Reaction Date of Last Stent Placement:: 2010 Past Psychological History: Anxiety, Depression, Panic Disorder Additional Psychological History / Comment(s): PT RESIDES WITH HER SPOUSE WHO IS IN HIS 80'S. PT USES NO ASSISTIVE DEVICE. SHE NO LONGER DRIVES, FAMILY TAKES THEM TO THEIR APPTS. THEY HAVE PERSONAL HOME CARE(visitng nurse). pt stated has home 02 3liters n/c, has cane/walker/wheel chair if needed. shower chair Smoking Status: Current every day smoker Past Alcohol Use History: None Reported Additional Past Alcohol Use History / Comment(s): She was a smoker starting in 1955 in half to one pack per day and date she quit in June but on last admission in July she was smoking half a pack per day. No illicit drug use , and no alcohol abuse. Past Drug Use History: None Reported - Past Family History Brother(s) Family Medical History: Coronary Artery Disease (CAD), Myocardial Infarction (ME ) Father Additional Family Medical History / Comment(s): FROM CIRRHOSIS OF THE LIVER Mother Family Medical History: COPD Additional Family Medical History / Comment(s): FROM AAA, HAD HX TB Medications and Allergies Home Medications Medication Instructions Recorded Confirmed Type Atenolol [Tenormin] 12.5 mg PO 12/27/13 10/30/17 History Dexlansoprazole [Dexilant] 60 mg PO DAILY 12/27/13 10/30/17 History Sucralfate [Carafate] 1 gm PO ACHS 12/27/13 10/30/17 History Pramipexole [Mirapex] 0.125 mg PO HS 09/12/14 10/30/17 History Tiotropium 18 Mcg/Puff [Spiriva] 1 cap INHALATION RT-HS 09/12/14 10/30/17 History Topiramate [Topamax] 50 mg PO BID 05/03/15 10/30/17 History Cholecalciferol [Vitamin D3] 1,000 unit PO DAILY 02/13/17 10/30/17 History Melatonin 5 mg PO HS #30 tablet 02/16/17 10/30/17 Rx DULoxetine HCL [Cymbalta] 30 mg PO DAILY 07/18/17 10/30/17 History DULoxetine HCL [Cymbalta] 60 mg PO HS 07/18/17 10/30/17 History Nitroglycerin Sl Tabs [Nitrostat] 0.4 mg SUBLINGUAL Q5M PRN #25 tab 07/22/17 Rx Calcium Carbonate [Calcium] 600 mg PO BID 08/25/17 10/30/17 History Aspirin 81 mg PO DAILY chew 09/02/17 10/30/17 Rx Polyethylene Glycol 3350 [Miralax] 17 gm PO BID #0 powd.pack 09/02/17 10/30/17 Rx Pravastatin Sodium [Pravachol] 80 mg PO HS #0 tab 09/02/17 10/30/17 Rx guaiFENesin [Mucinex] 1,200 mg PO Q12HR tablet.er 09/02/17 10/30/17 Rx traZODone HCL [Desyrel] 50 mg PO HS 09/09/17 10/30/17 History ALPRAZolam [Xanax] 1 mg PO TID #90 tablet 09/12/17 10/30/17 Rx Butalb/APAP/Caff 50-325-40Mg 0.5 tab PO Q4H PRN #60 tab 09/12/17 10/30/17 Rx [Fioricet 50-325-40] Acetaminophen [Tylenol] 650 mg PO Q6H PRN 10/11/17 10/30/17 History Albuterol Nebulized [Ventolin 2.5 mg INHALATION RT-Q8H PRN 10/11/17 10/30/17 History Nebulized] Artificial Tears-Hypromellose 1 drops BOTH EYES BID 10/11/17 10/30/17 History [Artificial Tear Drops] Budesonide [Pulmicort] 0.5 mg INHALATION RT-Q12H 10/11/17 10/30/17 History Docosanol [Abreva] 1 applic TP BID 10/11/17 10/30/17 History Ipratropium-Albuterol Nebulize 3 ml INHALATION RT-Q6H 10/11/17 10/30/17 History [Duoneb 0.5 mg-3 mg/3 ml Soln] Meclizine [Antivert] 12.5 mg PO Q8H PRN 10/11/17 10/30/17 History Metoclopramide [Reglan] 5 mg PO ACHS #15 tab 10/11/17 10/30/17 Rx Oxybutynin Xl [Ditropan Xl] 5 mg PO BID 10/11/17 10/30/17 History cloNIDine HCL [Catapres] 0.1 mg PO Q8H PRN 10/11/17 10/30/17 History traMADol HCL [Ultram] 50 mg PO Q12H PRN #20 tab 10/11/17 10/30/17 Rx Allergies Allergy/AdvReac Type Severity Reaction Status Date / Time naproxen sodium [From Aleve] Allergy Severe Anaphylaxis Verified 10/30/17 15:23 adhesive Allergy Rash/Hives Verified 10/30/17 15:23 cinnamon [Cinnamon] Allergy Dyspnea Verified 10/30/17 15:23 clindamycin Allergy Anaphylaxis Verified 10/30/17 15:23 codeine Allergy Nausea & Verified 10/30/17 15:23 Vomiting gentamicin [Gentamicin] Allergy SWELLING Verified 10/30/17 15:23 OF FACE W/ EYE DROPS paola Allergy Dyspnea Verified 10/30/17 15:23 Iodinated Contrast- Oral and Allergy Dyspnea Verified 10/30/17 18:27 IV Dye latex Allergy Rash/Hives Verified 10/30/17 15:23 levothyroxine sodium Allergy Unknown Verified 10/30/17 15:23 [From Synthroid] montelukast sodium Allergy Wheezing Verified 10/30/17 15:23 [From Singulair] pantoprazole sodium Allergy Abdominal Verified 10/30/17 15:23 [From Protonix] Pain Penicillins Allergy Rash/Hives Verified 10/30/17 15:23 red dye Allergy Abdominal Verified 10/30/17 15:23 Pain Sulfa (Sulfonamide Allergy Swelling Verified 10/30/17 15:23 Antibiotics) IN MOUTH sulfamethoxazole Allergy swelling Verified 10/30/17 15:23 [From Bactrim] tongue trimethoprim [From Bactrim] Allergy Swelling Verified 10/30/17 15:23 venom-honey bee Allergy Dyspnea Verified 10/30/17 15:23 [bee venom (honey bee)] BANDAIDS Allergy Rash/Hives Uncoded 10/30/17 13:57 tomatoes AdvReac Abdominal Uncoded 10/30/17 13:57 Pain Surgical - Exam Vital Signs Temp Pulse Resp BP Pulse Ox 98.2 F 89 16 94/53 98 10/30/17 13:52 10/30/17 13:52 10/30/17 13:52 10/30/17 13:52 10/30/17 13:52 GENERAL APPEARANCE: Thin cachectic looking older than stated age sitting up taking a diet alert, oriented, in no acute distress. Talkative VITAL SIGNS: Reviewed HEENT: Head is normocephalic and atraumatic. Pupils are equal and reactive. The nares are patent. Oropharynx is clear without lesions. NECK: Supple without lymphadenopathy. Traches midline. HEART: S1, S2. Regular rate and rhythm. Denying any chest pain LUNGS: No crackles or wheezes are heard. Adequate air movement bilaterally no cough noted ABDOMEN: Soft, mild tenderness right upper quadrant nondistended with good bowel sounds. No peritoneal signs. No palpable organomegaly or masses. No nausea no vomiting currently taking a diet states has not had a bowel movement since October 21 EXTREMITIES: Normal skin color and turgor. No cyanosis, rash, ulceration, clubbing or edema. Radial pedal pulses are 2/4 bilaterally. NEUROLOGICAL: No focal deficits. Strength and sensation are grossly intact. Results - Labs 10/30/17 15:28 10/30/17 14:56 Abnormal Lab Results - Last 24 Hours (Table) 10/30/17 10/30/17 10/30/17 Range/Units 14:56 14:56 15:28 RDW 15.8 H (11.5-15.5) % Eosinophils # 1.0 H (0-0.7) k/uL BUN 18 H (7-17) mg/dL Urine Appearance Cloudy H (Clear) Urine Protein 1+ H (Negative) Urine Ketones 2+ H (Negative) Urine Bilirubin 1+ H (Negative) Urine Bacteria Rare H (None) /hpf Hyaline Casts 16 H (0-2) /lpf Urine Mucus Moderate H (None) /hpf Diabetes panel 10/30/17 Range/Units 14:56 Sodium 141 (137-145) mmol/L Potassium 3.8 (3.5-5.1) mmol/L Chloride 103 (98-107) mmol/L Carbon Dioxide 22 (22-30) mmol/L BUN 18 H (7-17) mg/dL Creatinine 1.00 (0.52-1.04) mg/dL Glucose 77 (74-99) mg/dL Calcium 10.2 (8.4-10.2) mg/dL AST 36 (14-36) U/L ALT 17 (9-52) U/L Alkaline Phosphatase 66 (38-126) U/L Total Protein 8.0 (6.3-8.2) g/dL Albumin 4.7 (3.5-5.0) g/dL Calcium panel 10/30/17 Range/Units 14:56 Calcium 10.2 (8.4-10.2) mg/dL Albumin 4.7 (3.5-5.0) g/dL Pituitary panel 10/30/17 Range/Units 14:56 Sodium 141 (137-145) mmol/L Potassium 3.8 (3.5-5.1) mmol/L Chloride 103 (98-107) mmol/L Carbon Dioxide 22 (22-30) mmol/L BUN 18 H (7-17) mg/dL Creatinine 1.00 (0.52-1.04) mg/dL Glucose 77 (74-99) mg/dL Calcium 10.2 (8.4-10.2) mg/dL Adrenal panel 10/30/17 Range/Units 14:56 Sodium 141 (137-145) mmol/L Potassium 3.8 (3.5-5.1) mmol/L Chloride 103 (98-107) mmol/L Carbon Dioxide 22 (22-30) mmol/L BUN 18 H (7-17) mg/dL Creatinine 1.00 (0.52-1.04) mg/dL Glucose 77 (74-99) mg/dL Calcium 10.2 (8.4-10.2) mg/dL Total Bilirubin 0.7 (0.2-1.3) mg/dL AST 36 (14-36) U/L ALT 17 (9-52) U/L Alkaline Phosphatase 66 (38-126) U/L Total Protein 8.0 (6.3-8.2) g/dL Albumin 4.7 (3.5-5.0) g/dL Assessment and Plan Assessment: Impression Present on admission nausea vomiting with constipation CAT scan showing moderate stool in the sigmoid colon HIDA scan ejection fraction 97% suspect hyperdynamic gallbladder CT abdomen pelvis with contrast done on the gallbladder mildly hydropic without surrounding inflammation no biliary duct dilatation Debilitated History of hepatitis C treated with harvoi therapy Chronic tobacco use and dependency Anemia of chronic illness Peripheral vascular disease A recent non-ST elevated ME patent stent to the RCA July 2017 Chronic constipation Plan No evidence of an acute surgical abdomen at this time Repeat labs in the morning Home meds as appropriate Pain control Advance diet as tolerated Bowel stimulant program Will follow with you DVT and GI prophylaxis surgical consultation note dictated for dr rodriguez The above impression and plan of care have been discussed and directed by signing physician. Isabel Colmenares nurse practitioner acting as scribe for signing physician.
[2017-10-31] MEDS ORDERED: MORPHINE ORAL SOLN 10 MG/5 ML CUP PO PRN (13:49)
--- NOTE | 2017-10-31 14:51 | P.HPIM ---
History of Present Illness H&P Date: 10/31/17 Chief Complaint: Recurrent lower pelvic pain This is a 67-year-old female one of Dr. Colbert patient with past medical history of hepatitis C post the Harvoni therapy with history of CAD COPD asthma and previous history of DVT along with Takosubu syndrome ,GI bleed ( April 2016) being discharged home. 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 Islas at that time. She presents to the emergency room with recurrent lower pelvic pain, Bilateral location, no guarding, nausea, bloating, but no upper abdominal pain no Sykes' s sign no chest pain history of hysterectomy, and was seen by the past general surgeon Dr. Negron for which an upper endoscopy was performed, however and lower endoscopy still needs to be done, patient did not get this test done secondary to an illness. She has multiple imaging done from a facility all of which were reviewed including CAT scans of the abdomen and pelvis, all of which were showing moderate amount of retained stools, avascular necrosis of bilateral femoral heads, infrarenal abdominal aortic aneurysm with aortoiliac endograft and common iliac aneurysm, Her most recent CT was 10/30/2017, shows focal aneurysm at the left common iliac artery stent graft measuring 3.2 cm, aneurysm the landing zone at the right common iliac, 2.6 cm with moderate focal stenosis just beyond, stent graft remains patent [place] sac measures 4.4 cm unchanged, and this was reviewed with the radiologist, there is no and no endo leak noted. Patient has a mildly hydropic gallbladder, without surrounding inflammation, portal venous system is patent, no common bile duct dilatation. No adnexal mass noted, no pericolonic inflammation noted, moderate stools in the sigmoid this was done with IV contrast, she was premedicated with 125 mg IV methylprednisolone prior to contrast studies. HIDA scan of the gallbladder shows hyperkinetic gallbladder 97%, no evidence of cholecystitis I contacted the radiologist to reexamine imaging findings on CAT scan, she was not impressed about the pyelonephritis changes in the CAT scan, there is one small cortical cysts noted, urine WBC was 4 currently without any dysuria, she was recently treated for urinary tract infection 10/11/2017, she was seen at the emergency room for this. The radiologis, Dr. Colmenares did not see any psoas abscess, no Endo leak, AVN is noted in bilateral femoral heads, mild nature, but with recurrent and persistence of severe pelvic pain, we will proceed to have an MRI, pelvis . Consult was made with Dr. Milligan Review of Systems Constitutional: Denies as per HPI, Denies anorexia, Denies chills, Denies chronic headaches, Denies chronic pain, Denies daytime sleepiness, Denies fatigue, Denies fever, Denies lethargy, Denies malaise, Denies night sweats, Denies poor appetite, Denies sweats, Denies weakness, Denies weight gain, Denies weight loss Ears, nose, mouth and throat: Reports as per HPI, Denies ant. neck pain, Denies bleeding gums, Denies dental pain, Denies dysphagia, Denies epistaxis, Denies headache, Denies hoarseness, Denies mouth pain, Denies nasal congestion, Denies nasal discharge, Denies neck fullness/pressure, Denies neck lump, Denies nose pain, Denies odynophagia, Denies post-nasal drip, Denies sinus pain, Denies sinus pressure, Denies swelling in mouth, Denies swelling in throat, Denies sore throat, Denies vertigo, Denies voice changes Cardiovascular: Reports as per HPI, Reports shortness of breath (with panic attacks only) Respiratory: Reports as per HPI Gastrointestinal: Reports as per HPI Genitourinary: Reports as per HPI, Reports pelvic pain Menstruation: Reports as per HPI, Denies amenorrhea, Denies amenorrhea on BC, Denies currently menstrual, Denies cycle < 21 days, Denies cycle > 35 days, Denies cycle variable, Denies menses 1-7 days, Denies menses 8 or > days, Denies menses variable, Denies period heavy, Denies period light, Denies period normal, Denies period spotting, Denies post hysterectomy, Denies postmenopausal , Denies premenarcheal Musculoskeletal: Reports as per HPI, Denies arm numbness/tingling, Denies atrophy, Denies fractures, Denies frequent falls, Denies gait dysfunction, Denies hot joints, Denies leg numbness/tingling, Denies limitation of motion, Denies loss of height, Denies low back pain, Denies morning stiffness, Denies muscle cramps, Denies muscle weakness, Denies myalgias, Denies neck pain, Denies neck stiffness, Denies prior amputations, Denies redness of joints, Denies shooting arm pain, Denies shooting leg pain Integumentary: Reports as per HPI, Denies acne, Denies boils, Denies brittle nails, Denies change in hair/nails, Denies color changes, Denies darkening of skin, Denies depigmentation, Denies dryness, Denies foot/leg ulcers, Denies growths, Denies hirsutism, Denies lesions, Denies onychomycosis, Denies pruritus , Denies rash, Denies sores, Denies striae, Denies unusual bruising, Denies wounds Neurological: Reports as per HPI, Denies aphasia, Denies ataxia, Denies balance difficulties, Denies burning pain, Denies change in mentation, Denies change in smell/taste, Denies change in speech, Denies confusion, Denies convulsions, Denies double vision, Denies gait dysfunction, Denies head injury, Denies headaches, Denies hearing difficulties, Denies lack of coordination, Denies loss of vision, Denies memory loss, Denies migraines, Denies motor disturbance, Denies numbness, Denies paralysis, Denies paresthesias, Denies seizures, Denies sensory deficit, Denies spasticity, Denies syncope, Denies tic, Denies tingling , Denies transient paralysis, Denies tremors, Denies vertigo, Denies weakness, Denies visual changes Psychiatric: Reports as per HPI, Reports anxiety attacks, Reports change in sleep habits, Reports difficulty concentrating, Reports insomnia, Reports memory loss, Reports sadness/tearfulness Endocrine: Reports as per HPI Hematologic/Lymphatic: Reports as per HPI Allergic/Immunologic: Reports as per HPI, Denies allergic rhinitis, Denies anaphylaxis, Denies angioedema, Denies gluten intolerance, Denies persistent infections, Denies seasonal allergies, Denies urticaria, Denies wheezing Past Medical History Past Medical History: Asthma, Chest Pain / Angina, COPD, Deep Vein Thrombosis ( DVT), GERD/Reflux, Hypertension, Liver Disease, Myocardial Infarction (SD), Musculoskeletal Disorder, Pneumonia, Sleep Apnea/CPAP/BIPAP, Vascular Disorder Additional Past Medical History / Comment(s): 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 amenia-iron infusons x2 Last Myocardial Infarction Date:: 06/2011 History of Any Multi-Drug Resistant Organisms: None Reported Past Surgical History: Bladder Surgery, Heart Catheterization With Stent, Hysterectomy, Orthopedic Surgery Additional Past Surgical History / Comment(s): HEART STENT 2010. AAA STENT 2005. VARICOSE VEIN STRIPPING R leg. EXP LAP. LIVER/BX, HAD RT FOOT SURGERY D/ T SALMONELLA INFECTION. R SHOULDER SCOPE. COLONOSCOPY-NORMAL. BLADDER SUSPENSIONS. Past Anesthesia/Blood Transfusion Reactions: No Reported Reaction Date of Last Stent Placement:: 2010 Past Psychological History: Anxiety, Depression, Panic Disorder Additional Psychological History / Comment(s): PT RESIDES WITH HER SPOUSE WHO IS IN HIS 80'S. PT USES NO ASSISTIVE DEVICE. SHE NO LONGER DRIVES, FAMILY TAKES THEM TO THEIR APPTS. THEY HAVE PERSONAL HOME CARE(visitng nurse). pt stated has home 02 3liters n/c, has cane/walker/wheel chair if needed. shower chair Smoking Status: Current every day smoker Past Alcohol Use History: None Reported Additional Past Alcohol Use History / Comment(s): She was a smoker starting in 1956 in half to one pack per day and date she quit in June but on last admission in July she was smoking half a pack per day. No illicit drug use , and no alcohol abuse. Past Drug Use History: None Reported - Past Family History Brother(s) Family Medical History: Coronary Artery Disease (CAD), Myocardial Infarction (SD ) Father Additional Family Medical History / Comment(s): FROM CIRRHOSIS OF THE LIVER Mother Family Medical History: COPD Additional Family Medical History / Comment(s): FROM AAA, HAD HX TB Medications and Allergies Home Medications Medication Instructions Recorded Confirmed Type Atenolol [Tenormin] 12.5 mg PO HS 12/27/13 10/30/17 History Dexlansoprazole [Dexilant] 60 mg PO DAILY 12/27/13 10/30/17 History Sucralfate [Carafate] 1 gm PO ACHS 12/27/13 10/30/17 History Pramipexole [Mirapex] 0.125 mg PO HS 09/12/14 10/30/17 History Tiotropium 18 Mcg/Puff [Spiriva] 1 cap INHALATION RT-HS 09/12/14 10/30/17 History Topiramate [Topamax] 50 mg PO BID 05/03/15 10/30/17 History Cholecalciferol [Vitamin D3] 1,000 unit PO DAILY 02/13/17 10/30/17 History Melatonin 5 mg PO HS #30 tablet 02/16/17 10/30/17 Rx DULoxetine HCL [Cymbalta] 30 mg PO DAILY 07/18/17 10/30/17 History DULoxetine HCL [Cymbalta] 60 mg PO HS 07/18/17 10/30/17 History Nitroglycerin Sl Tabs [Nitrostat] 0.4 mg SUBLINGUAL Q5M PRN #25 tab 07/22/17 Rx Calcium Carbonate [Calcium] 600 mg PO BID 08/25/17 10/30/17 History Aspirin 81 mg PO DAILY chew 09/02/17 10/30/17 Rx Polyethylene Glycol 3350 [Miralax] 17 gm PO BID #0 powd.pack 09/02/17 10/30/17 Rx Pravastatin Sodium [Pravachol] 80 mg PO HS #0 tab 09/02/17 10/30/17 Rx guaiFENesin [Mucinex] 1,200 mg PO Q12HR tablet.er 09/02/17 10/30/17 Rx traZODone HCL [Desyrel] 50 mg PO HS 09/09/17 10/30/17 History ALPRAZolam [Xanax] 1 mg PO TID #90 tablet 09/12/17 10/30/17 Rx Butalb/APAP/Caff 50-325-40Mg 0.5 tab PO Q4H PRN #60 tab 09/12/17 10/30/17 Rx [Fioricet 50-325-40] Acetaminophen [Tylenol] 650 mg PO Q6H PRN 10/11/17 10/30/17 History Albuterol Nebulized [Ventolin 2.5 mg INHALATION RT-Q8H PRN 10/11/17 10/30/17 History Nebulized] Artificial Tears-Hypromellose 1 drops BOTH EYES BID 10/11/17 10/30/17 History [Artificial Tear Drops] Budesonide [Pulmicort] 0.5 mg INHALATION RT-Q12H 10/11/17 10/30/17 History Docosanol [Abreva] 1 applic TP BID 10/11/17 10/30/17 History Ipratropium-Albuterol Nebulize 3 ml INHALATION RT-Q6H 10/11/17 10/30/17 History [Duoneb 0.5 mg-3 mg/3 ml Soln] Meclizine [Antivert] 12.5 mg PO Q8H PRN 10/11/17 10/30/17 History Metoclopramide [Reglan] 5 mg PO ACHS #15 tab 10/11/17 10/30/17 Rx Oxybutynin Xl [Ditropan Xl] 5 mg PO BID 10/11/17 10/30/17 History cloNIDine HCL [Catapres] 0.1 mg PO Q8H PRN 10/11/17 10/30/17 History traMADol HCL [Ultram] 50 mg PO Q12H PRN #20 tab 10/11/17 10/30/17 Rx Allergies Allergy/AdvReac Type Severity Reaction Status Date / Time naproxen sodium [From Aleve] Allergy Severe Anaphylaxis Verified 10/30/17 15:23 adhesive Allergy Rash/Hives Verified 10/30/17 15:23 cinnamon [Cinnamon] Allergy Dyspnea Verified 10/30/17 15:23 clindamycin Allergy Anaphylaxis Verified 10/30/17 15:23 codeine Allergy Nausea & Verified 10/30/17 15:23 Vomiting gentamicin [Gentamicin] Allergy SWELLING Verified 10/30/17 15:23 OF FACE W/ EYE DROPS paola Allergy Dyspnea Verified 10/30/17 15:23 Iodinated Contrast- Oral and Allergy Dyspnea Verified 10/30/17 18:27 IV Dye latex Allergy Rash/Hives Verified 10/30/17 15:23 levothyroxine sodium Allergy Unknown Verified 10/30/17 15:23 [From Synthroid] montelukast sodium Allergy Wheezing Verified 10/30/17 15:23 [From Singulair] pantoprazole sodium Allergy Abdominal Verified 10/30/17 15:23 [From Protonix] Pain Penicillins Allergy Rash/Hives Verified 10/30/17 15:23 red dye Allergy Abdominal Verified 10/30/17 15:23 Pain Sulfa (Sulfonamide Allergy Swelling Verified 10/30/17 15:23 Antibiotics) IN MOUTH sulfamethoxazole Allergy swelling Verified 10/30/17 15:23 [From Bactrim] tongue trimethoprim [From Bactrim] Allergy Swelling Verified 10/30/17 15:23 venom-honey bee Allergy Dyspnea Verified 10/30/17 15:23 [bee venom (honey bee)] BANDAIDS Allergy Rash/Hives Uncoded 10/30/17 13:57 tomatoes AdvReac Abdominal Uncoded 10/30/17 13:57 Pain Physical Exam Vitals: Vital Signs Temp Pulse Pulse Pulse Resp BP BP 10/31/17 13:55 100 10/31/17 13:41 100 10/31/17 10:26 104 H 10/31/17 10:15 100 10/31/17 07:33 96 10/31/17 07:25 96 10/31/17 07:00 98.4 F 96 134/61 10/31/17 00:45 97.8 F 98 15 94/56 10/30/17 21:07 96 10/30/17 20:57 94 10/30/17 20:00 97.8 F 104 H 16 127/55 10/30/17 18:54 97.5 F L 104 H 15 136/69 10/30/17 17:11 94 16 104/53 10/30/17 14:47 56 L 16 125/60 Pulse Ox 10/31/17 13:55 10/31/17 13:41 10/31/17 10:26 10/31/17 10:15 10/31/17 07:33 10/31/17 07:25 10/31/17 07:00 95 10/31/17 00:45 98 10/30/17 21:07 10/30/17 20:57 10/30/17 20:00 97 10/30/17 18:54 93 L 10/30/17 17:11 100 10/30/17 14:47 100 Intake and Output 10/30/17 10/31/17 10/31/17 22:59 06:59 14:59 Intake Total 1100 Balance 1100 Intake: Intake, IV Titration 1100 Amount Sodium Chloride 0.9% 1, 1100 000 ml @ 100 mls/hr IV . Q10H ONE Rx#:[id number] Other: # Voids 1 Weight 45.813 kg 45.813 kg - Constitutional General appearance: cooperative, no acute distress - EENT Eyes: anicteric sclerae, EOMI, PERRLA, dentition normal, normal appearance ENT: NA/AT, normal oropharynx - Neck Neck: normal ROM - Respiratory Respiratory: bilateral: CTA, negative: diminished, dullness, rales, rhonchi, wheezing - Cardiovascular Rhythm: regular Heart sounds: normal: S1, S2 Abnormal Heart Sounds: no systolic murmur, no diastolic murmur, no rub, no S3 Gallop, no S4 Gallop, no click, no other Results CBC & Chem 7: 10/30/17 15:28 10/30/17 14:56 Labs: Abnormal Lab Results - Last 24 Hours (Table) 10/30/17 10/30/17 10/30/17 Range/Units 14:56 14:56 15: RDW 15.8 H (11.5-15.5) % Eosinophils # 1.0 H (0-0.7) k/uL BUN 18 H (7-17) mg/dL Urine Appearance Cloudy H (Clear) Urine Protein 1+ H (Negative) Urine Ketones 2+ H (Negative) Urine Bilirubin 1+ H (Negative) Urine Bacteria Rare H (None) /hpf Hyaline Casts 16 H (0-2) /lpf Urine Mucus Moderate H (None) /hpf Laboratory Results WBC 8.3 k/uL (3.8-10.6) 10/30/17 15: RBC 4.15 m/uL (3.80-5.40) 10/30/17 15:28 Hgb 12.8 gm/dL (11.4-16.0) 10/30/17 15:28 Hct 38.1 % (34.0-46.0) 10/30/17 15:28 MCV 91.8 fL (80.0-100.0) 10/30/17 15:28 MCH 30.8 pg (25.0-35.0) 10/30/17 15:28 MCHC 33.5 g/dL (31.0-37.0) 10/30/17 15: RDW 15.8 % (11.5-15.5) H 10/30/17 15:28 Plt Count 185 k/uL (150-450) 10/30/17 15:28 Neutrophils % 58 % 10/30/17 15:28 Lymphocytes % 23 % 10/30/17 15:28 Monocytes % 4 % 10/30/17 15:28 Eosinophils % 12 % 10/30/17 15: Basophils % 1 % 10/30/17 15:28 Neutrophils # 4.8 k/uL (1.3-7.7) 10/30/17 15: Lymphocytes # 1.9 k/uL (1.0-4.8) 10/30/17 15: Monocytes # 0.4 k/uL (0-1.0) 10/30/17: Eosinophils # 1.0 k/uL (0-0.7) H 10/30/17 15: Basophils # 0.1 k/uL (0-0.2) 10/30/17 15:28 Sodium 141 mmol/L (137-145) 10/30/17 14:56 Potassium 3.8 mmol/L (3.5-5.1) 10/30/17 14:56 Chloride 103 mmol/L (98-107) 10/30/17 14:56 Carbon Dioxide 22 mmol/L (22-30) 10/30/17 14:56 Anion Gap 16 mmol/L 10/30/17 14:56 BUN 18 mg/dL (7-17) H 10/30/17 14:56 Creatinine 1.00 mg/dL (0.52-1.04) 10/30/17 14:56 Est GFR (CKD-EPI)AfAm 67 (>60 ml/min/1.73 sqM) 10/30/17 14:56 Est GFR (CKD-EPI)NonAf 58 (>60 ml/min/1.73 sqM) 10/30/17 14:56 Glucose 77 mg/dL (74-99) 10/30/17 14:56 Calcium 10.2 mg/dL (8.4-10.2) 10/30/17 14:56 Total Bilirubin 0.7 mg/dL (0.2-1.3) 10/30/17 14:56 AST 36 U/L (14-36) 10/30/17 14:56 ALT 17 U/L (9-52) 10/30/17 14:56 Alkaline Phosphatase 66 U/L (38-126) 10/30/17 14:56 Total Protein 8.0 g/dL (6.3-8.2) 10/30/17 14:56 Albumin 4.7 g/dL (3.5-5.0) 10/30/17 14:56 Amylase 65 U/L (30-110) 10/30/17 14:56 Lipase 103 U/L (23-300) 10/30/17 14:56 Urine Color Dark Brown 10/30/17 14:56 Urine Appearance Cloudy (Clear) H 10/30/17 14:56 Urine pH 6.0 (5.0-8.0) 10/30/17 14:56 Ur Specific Glynn 1.027 (1.001-1.035) 10/30/17 14:56 Urine Protein 1+ (Negative) H 10/30/17 14:56 Urine Glucose (UA) Negative (Negative) 10/30/17 14:56 Urine Ketones 2+ (Negative) H 10/30/17 14:56 Urine Blood Negative (Negative) 10/30/17 14:56 Urine Nitrite Negative (Negative) 10/30/17 14:56 Urine Bilirubin 1+ (Negative) H 10/30/17 14:56 Urine Urobilinogen 6.0 mg/dL (<2.0) 10/30/17 14:56 Ur Leukocyte Esterase Negative (Negative) 10/30/17 14:56 Urine RBC 3 /hpf (0-5) 10/30/17 14:56 Urine WBC 4 /hpf (0-5) 10/30/17 14:56 Ur Squamous Epith Cells 1 /hpf (0-4) 10/30/17 14:56 Urine Bacteria Rare /hpf (None) H 10/30/17 14:56 Hyaline Casts 16 /lpf (0-2) H 10/30/17 14:56 Urine Mucus Moderate /hpf (None) H 10/30/17 14:56 Thrombosis Risk Factor Assmnt - DVT/VTE Prophylaxis DVT/VTE Prophylaxis: Pharmacologic Prophylaxis ordered - Choose All That Apply Each Factor Represents 1 point: Abnormal pulmonary function (COPD) Other Risk Factors: No Each Risk Factor Represents 2 Points: Age 61-74 years Thrombosis Risk Factor Assessment Total Risk Factor Score: 3 Thrombosis Risk Factor Assessment Level: Moderate Risk Assessment and Plan Plan: 1. Recurrent severe bilateral pelvic pain, with multiple pathologies seen on CAT scan to include bilateral femoral head AVN, , left common iliac artery stent graft with focal aneurysm 3.2 cm severe stenosis beyond, right common iliac artery 2.6 cm with modest focal stenosis just beyond, stent graft remains patent without any evidence of endoleak, pelvic MRI was requested, general surgery consulted. Patient will orthopedic evaluation Dr. Whipple, patient might need vascular evaluation depending on MRI imaging., Bowel prophylaxis with MiraLAX twice a day scheduled for moderate stool burden.. Patient still needs to complete her designated surveillance for colonoscopy 2. Hydropic gallbladder with biliary hyperkinesia EF of 97%, she has some nausea and bloating with this, but not pain, no evidence of ascending cholangitis or cholecystitis, general surgeon is consulted, however base with her recent cardiac history, elective cholecystectomy 3. Dehydration with ketonuria and hyaline casts noted on admission, without any evidence of acute urinary tract infection, patient will be hydrated no antibiotics needed, urine WBC 4 on admission 4. Bilateral avascular necrosis bilateral femoral consult Dr. Whipple orthopedic surgeon as this could be the source of her lower pelvic pain 5. History of Viridans strep bacteremia secondary to endovascular infection, endocarditis ruled out September 04 4 weeks IV vancomycin completed. 6. Recent non-ST elevated myocardial infarction status post heart catheterization finding patent stent in the RCA and heavily calcified right and left coronary systems in July 2017. Atenolol, aspirin 81 mg every day, pravastatin, 7. Acute bronchospasm possibly related to IV contrast exposure symptoms improved Appears stable at this time. Continue DuoNeb treatments with quickly tapered down prednisone currently on hydrocortisone 60 every 6 which would decrease to 40-8 8. Peripheral vascular disease. Severe without claudication With bilateral common iliac right and left vascular systems with stent and graft 9. Chronic back pain. 10. Chronic anemia of chronic disease. 11 PUD. Continue Carafate no changes 12. Hep C S/P Harvoni therapy. 11. Hyperlipidemia. Pravastatin. Patient was unable to tolerate Lipitor. 12. Abdominal aortic aneurysm S/P endovascular stent. 13. Chronic tobacco use and dependence. Smoking cessation and counseling an increased risk of CAD, CVA, and malignancy. Patient on nicotine patch. 14. Migraine Headache. Continue Topamax 50 mg orally twice every day as well as Fioricet half a pill every 4 hours as needed. 15. Hypertension and hypertensive cardiovascular disease. Continue atenolol 12.5 mg orally once every day. 16. Restless leg syndrome. Continue Mirapex 0.125 mg orally at bedtime. 17. Obstructive sleep apnea. Stable. 18. Generalized anxiety disorder with panic disorder Depression, recurrent. Continue Cymbalta 30 mg in the morning and 60 mg at bedtime. 19. Overactive bladder. Patient is currently off oxybutynin. 20. Postmenopausal vaginal bleeding. Patient has been encouraged to follow-up with Dr. Lopez as an outpatient. 21. DVT prophylaxis. Lovenox subcu. 22. GI prophylaxis. Carafate. 23. Insomnia. Continue melatonin and trazodone. 24. Chronic constipation. Continue MiraLAX 17 g twice daily. Estimated length of stay is 2 midnights.
--- NOTE | 2017-10-31 16:29 | XR ---
EXAMINATION TYPE: XR Hip Bilateral and AP pelvis DATE OF EXAM: 10/31/2017 COMPARISON: 05/02/2014 HISTORY: Bilateral hip pain and lower abdominal pain TECHNIQUE: A single AP view of the pelvis is obtained. Two views of the bilateral hips are obtained. FINDINGS: There is no acute fracture/dislocation evident in the pelvis. The hip joints demonstrated bilateral mild femoral acetabular arthropathy with acetabular sclerosis and joint space narrowing. A ortoiliac graft material and The overlying soft tissue appears unremarkable. Two views of both hips show no acute fracture or dislocation. The known bilateral femoral head avascu lar necrosis is better appreciated on CT. No femoral head subchondral collapse. Again aortoiliac sten t grafts are noted with atherosclerosis of the femoral arteries and surgical clips in the femoral reg ions. No focal lytic or sclerotic lesion seen in the proximal either femur. The overlying soft tissu e is unremarkable. Overlying bowel gas pattern is nonobstructive. IMPRESSION: 1. Findings of bilateral femoral head avascular necrosis are better appreciated on CT. No subchondral collapse is seen of the femurs. Bilateral mild femoral acetabular arthropathy is noted. 2. There is no acute fracture or dislocation in the pelvis either hip. 3. Vascular aortoiliac endograft and postsurgical changes of the femoral arteries with moderate bifem oral atherosclerosis.
[2017-10-31] MEDS: HEPARIN SODIUM,PORCINE 5,000 UNIT/ML 1 ML VIAL SQ SCH ×2 (16:46→23:28)
[2017-10-31] MEDS: methylPREDNISolone SOD SUCCI 40 MG/ML 1 ML VIAL IV SCH ×2 (16:48→23:28)
[2017-10-31] MEDS: ATENOLOL 12.5 MG TAB PO SCH (20:02)
[2017-10-31] MEDS: DULoxetine HCL 60 MG CAPSULE.DR PO SCH (20:04)
[2017-10-31] MEDS: LACTULOSE 20 GM/30 ML CUP PO SCH (20:05)
[2017-10-31] MEDS: PRAVASTATIN SODIUM 80 MG TAB PO SCH ×2 (20:06)
[2017-10-31] MEDS: PRAMIPEXOLE 0.125 MG TAB PO SCH ×2 (20:06)
[2017-10-31] MEDS: MELATONIN 5 MG TABLET PO SCH ×2 (20:06)
[2017-10-31] MEDS: traZODone HCL 50 MG TAB PO SCH ×2 (20:07)
[2017-11-01] MEDS: LEVOFLOXACIN 500MG-D5W PMX 500 MG in DEXTROSE/WATER 1 100ML.BAG IVPB SCH ×2 (00:35→23:11)
[2017-11-01] MEDS: IPRATROPIUM-ALBUTEROL 3 ML NEB INHALATION SCH ×4 (01:18→18:57)
[2017-11-01] MEDS: ALPRAZolam 1 MG TAB PO SCH ×4 (01:28→20:45)
[2017-11-01] MEDS: metroNIDAZOLE-NS PMX 500 MG in SALINE 1 100ML.BAG IVPB SCH ×4 (02:09→23:11)
[2017-11-01] MEDS: ONDANSETRON 4 MG/2 ML VIAL IVP PRN (03:45)
[2017-11-01] MEDS: BUDESONIDE 0.5 MG/2 ML NEBU INHALATION SCH ×2 (07:16→18:57)
[2017-11-01 07:24] LABS: Anisocytosis Slight; Basophils % (A) 0 %; Eosinophils # (A) 0.1 k/uL (0-0.7); Eosinophils % (A) 1 %; HCT 31.6 % (34.0-46.0); HGB 10.5 gm/dL (11.4-16.0); Lymphocytes # (A) 1.1 k/uL (1.0-4.8); Lymphocytes % (A) 15 %; MCH 30.9 pg (25.0-35.0); MCHC 33.3 g/dL (31.0-37.0); MCV 92.8 fL (80.0-100.0); Mean Platelet Volume 7.9; Monocytes # (A) 0.3 k/uL (0-1.0); Monocytes % (A) 4 %; Neutrophils # (A) 5.6 k/uL (1.3-7.7); Neutrophils % (A) 80 %; Platelet Count 140 k/uL (150-450); WBC 7.1 k/uL (3.8-10.6)
[2017-11-01 08:23] LABS: Albumin 3.5 g/dL (3.5-5.0); Calcium 8.6 mg/dL (8.4-10.2); Potassium 3.4 mmol/L (3.5-5.1); Total Bilirubin 0.3 mg/dL (0.2-1.3); Total Protein 6.3 g/dL (6.3-8.2)
--- NOTE | 2017-11-01 09:35 | P.CNOR ---
History of Present Illness - HPI Consult date: 11/01/17 History of present illness: This is a 67-year-old female who is admitted for evaluation of abdominal pain, nausea and vomiting. Orthopedics was consulted due to findings of bilateral femoral head avascular necrosis found on CT of abdomen and pelvis. Today patient was seen and evaluated at bedside and denies any complaints of hip pain. Patient states she is a patient of Dr. Henry who has seen her for her left knee. Patient states she has no problems with pain in the hips while walking. Patient is afebrile and has a normal white count. Patient denies any history of injury, numbness, weakness, tingling, groin pain, fever/chills. Review of Systems See HPI. 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 amenia-iron infusons x2 Last Myocardial Infarction Date:: 06/2011 History of Any Multi-Drug Resistant Organisms: None Reported Past Surgical History: Bladder Surgery, Heart Catheterization With Stent, Hysterectomy, Orthopedic Surgery Additional Past Surgical History / Comment(s): HEART STENT 2010. AAA STENT 2005. VARICOSE VEIN STRIPPING R leg. EXP LAP. LIVER/BX, HAD RT FOOT SURGERY D/ T SALMONELLA INFECTION. R SHOULDER SCOPE. COLONOSCOPY-NORMAL. BLADDER SUSPENSIONS. Past Anesthesia/Blood Transfusion Reactions: No Reported Reaction Date of Last Stent Placement:: 2010 Past Psychological History: Anxiety, Depression, Panic Disorder Additional Psychological History / Comment(s): PT RESIDES WITH HER SPOUSE WHO IS IN HIS 80'S. PT USES NO ASSISTIVE DEVICE. SHE NO LONGER DRIVES, FAMILY TAKES THEM TO THEIR APPTS. THEY HAVE PERSONAL HOME CARE(visitng nurse). pt stated has home 02 3liters n/c, has cane/walker/wheel chair if needed. shower chair Smoking Status: Current every day smoker Past Alcohol Use History: None Reported Additional Past Alcohol Use History / Comment(s): She was a smoker starting in 1956 in half to one pack per day and date she quit in June but on last admission in July she was smoking half a pack per day. No illicit drug use , and no alcohol abuse. Past Drug Use History: None Reported - Past Family History Brother(s) Family Medical History: Coronary Artery Disease (CAD), Myocardial Infarction (NC ) Father Additional Family Medical History / Comment(s): FROM CIRRHOSIS OF THE LIVER Mother Family Medical History: COPD Additional Family Medical History / Comment(s): FROM AAA, HAD HX TB Medications and Allergies Home Medications Medication Instructions Recorded Confirmed Type Atenolol [Tenormin] 12.5 mg PO HS 12/27/13 10/30/17 History Dexlansoprazole [Dexilant] 60 mg PO DAILY 12/27/13 10/30/17 History Sucralfate [Carafate] 1 gm PO ACHS 12/27/13 10/30/17 History Pramipexole [Mirapex] 0.125 mg PO HS 09/12/14 10/30/17 History Tiotropium 18 Mcg/Puff [Spiriva] 1 cap INHALATION RT-HS 09/12/14 10/30/17 History Topiramate [Topamax] 50 mg PO BID 05/03/15 10/30/17 History Cholecalciferol [Vitamin D3] 1,000 unit PO DAILY 02/13/17 10/30/17 History Melatonin 5 mg PO HS #30 tablet 02/16/17 10/30/17 Rx DULoxetine HCL [Cymbalta] 30 mg PO DAILY 07/18/17 10/30/17 History DULoxetine HCL [Cymbalta] 60 mg PO HS 07/18/17 10/30/17 History Nitroglycerin Sl Tabs [Nitrostat] 0.4 mg SUBLINGUAL Q5M PRN #25 tab 07/22/17 Rx Calcium Carbonate [Calcium] 600 mg PO BID 08/25/17 10/30/17 History Aspirin 81 mg PO DAILY chew 09/02/17 10/30/17 Rx Polyethylene Glycol 3350 [Miralax] 17 gm PO BID #0 powd.pack 09/02/17 10/30/17 Rx Pravastatin Sodium [Pravachol] 80 mg PO HS #0 tab 09/02/17 10/30/17 Rx guaiFENesin [Mucinex] 1,200 mg PO Q12HR tablet.er 09/02/17 10/30/17 Rx traZODone HCL [Desyrel] 50 mg PO HS 09/09/17 10/30/17 History ALPRAZolam [Xanax] 1 mg PO TID #90 tablet 09/12/17 10/30/17 Rx Butalb/APAP/Caff 50-325-40Mg 0.5 tab PO Q4H PRN #60 tab 09/12/17 10/30/17 Rx [Fioricet 50-325-40] Acetaminophen [Tylenol] 650 mg PO Q6H PRN 10/11/17 10/30/17 History Albuterol Nebulized [Ventolin 2.5 mg INHALATION RT-Q8H PRN 10/11/17 10/30/17 History Nebulized] Artificial Tears-Hypromellose 1 drops BOTH EYES BID 10/11/17 10/30/17 History [Artificial Tear Drops] Budesonide [Pulmicort] 0.5 mg INHALATION RT-Q12H 10/11/17 10/30/17 History Docosanol [Abreva] 1 applic TP BID 10/11/17 10/30/17 History Ipratropium-Albuterol Nebulize 3 ml INHALATION RT-Q6H 10/11/17 10/30/17 History [Duoneb 0.5 mg-3 mg/3 ml Soln] Meclizine [Antivert] 12.5 mg PO Q8H PRN 10/11/17 10/30/17 History Metoclopramide [Reglan] 5 mg PO ACHS #15 tab 10/11/17 10/30/17 Rx Oxybutynin Xl [Ditropan Xl] 5 mg PO BID 10/11/17 10/30/17 History cloNIDine HCL [Catapres] 0.1 mg PO Q8H PRN 10/11/17 10/30/17 History traMADol HCL [Ultram] 50 mg PO Q12H PRN #20 tab 10/11/17 10/30/17 Rx Allergies Allergy/AdvReac Type Severity Reaction Status Date / Time naproxen sodium [From Aleve] Allergy Severe Anaphylaxis Verified 10/30/17 15:23 adhesive Allergy Rash/Hives Verified 10/30/17 15:23 cinnamon [Cinnamon] Allergy Dyspnea Verified 10/30/17 15:23 clindamycin Allergy Anaphylaxis Verified 10/30/17 15:23 codeine Allergy Nausea & Verified 10/30/17 15:23 Vomiting gentamicin [Gentamicin] Allergy SWELLING Verified 10/30/17 15:23 OF FACE W/ EYE DROPS paola Allergy Dyspnea Verified 10/30/17 15:23 Iodinated Contrast- Oral and Allergy Dyspnea Verified 10/30/17 18:27 IV Dye latex Allergy Rash/Hives Verified 10/30/17 15:23 levothyroxine sodium Allergy Unknown Verified 10/30/17 15:23 [From Synthroid] montelukast sodium Allergy Wheezing Verified 10/30/17 15:23 [From Singulair] pantoprazole sodium Allergy Abdominal Verified 10/30/17 15:23 [From Protonix] Pain Penicillins Allergy Rash/Hives Verified 10/30/17 15:23 red dye Allergy Abdominal Verified 10/30/17 15:23 Pain Sulfa (Sulfonamide Allergy Swelling Verified 10/30/17 15:23 Antibiotics) IN MOUTH sulfamethoxazole Allergy swelling Verified 10/30/17 15:23 [From Bactrim] tongue trimethoprim [From Bactrim] Allergy Swelling Verified 10/30/17 15:23 venom-honey bee Allergy Dyspnea Verified 10/30/17 15:23 [bee venom (honey bee)] BANDAIDS Allergy Rash/Hives Uncoded 10/30/17 13:57 tomatoes AdvReac Abdominal Uncoded 10/30/17 13:57 Pain Physical Examination On exam patient is lying comfortably in bed in no acute distress and patient is alert and oriented 3. There is no pain with active or passive range of motion of bilateral hips. There is no pain with log roll of bilateral lower extremities. Calves are soft and nontender. Patient has full foot and ankle motion bilaterally. Neurovascular status and circulatory status are intact bilaterally. Results X-rays of bilateral hips and AP pelvis show #1. Findings of bilateral femoral head avascular necrosis or better appreciated on CT. No subchondral collapse is seen of the femurs. Bilateral mild femoral acetabular arthropathy is noted. #2. There is no acute fracture or dislocation in the pelvis either hip. #3. Vascular aortoiliac endograft and postsurgical changes of the femoral arteries with moderate bifemoral atherosclerosis. Report by Dr. Claire Prakash CT of abdomen and pelvis shows bilateral femoral head AVN without subarticular collapse. This was present on 10/11/2017. Degenerative changes lower lumbar spine. - Labs Labs: Abnormal Lab Results - Last 24 Hours (Table) 11/01/17 11/01/17 Range/Units 06:54 06:54 RBC 3.40 L (3.80-5.40) m/uL Hgb 10.5 L (11.4-16.0) gm/dL Hct 31.6 L (34.0-46.0) % RDW 16.0 H (11.5-15.5) % Plt Count 140 L (150-450) k/uL Sodium 148 H (137-145) mmol/L Potassium 3.4 L (3.5-5.1) mmol/L Chloride 117 H (98-107) mmol/L Carbon Dioxide 20 L (22-30) mmol/L AST 40 H (14-36) U/L H & H 10/30/17 11/01/17 Range/Units 15:28 06:54 Hgb 12.8 10.5 L (11.4-16.0) gm/dL Hct 38.1 31.6 L (34.0-46.0) % Result Diagrams: 11/01/17 06:54 11/01/17 06:54 Assessment and Plan (1) Avascular necrosis of bones of both hips Current Visit: Yes Status: Acute Code(s): M87.051 - IDIOPATHIC ASEPTIC NECROSIS OF RIGHT FEMUR; M87.052 - IDIOPATHIC ASEPTIC NECROSIS OF LEFT FEMUR SNOMED Code(s): 136153987 (2) Intractable nausea and vomiting Current Visit: Yes Status: Acute Code(s): R11.2 - NAUSEA WITH VOMITING, UNSPECIFIED SNOMED Code(s): 649574999 Plan: #1. Imaging is reviewed. Patient denies any complaints of bilateral hip pain. #2. No surgical intervention is planned at this time. Patient may follow up as an outpatient on an as-needed basis.
--- NOTE | 2017-11-01 10:51 | P.PN ---
Progress Note - Text Progress Note Date: 11/01/17 The patient is resting comfortably in her bed. She still has complaints of right-sided abdominal pain. Her HIDA scan showed evidence of a hyperkinetic gallbladder. On exam her vital signs are stable. Her abdomen soft. Patient will be discharged home per medicine. Once her pyelonephritis has resolved we will plan for outpatient laparoscopic ostectomy for biliary hypokinesis.
[2017-11-01] MEDS: DEXLANSOPRAZOLE 60 MG PO SCH (11:13)
[2017-11-01] MEDS: HEPARIN SODIUM,PORCINE 5,000 UNIT/ML 1 ML VIAL SQ SCH ×3 (11:14→23:10)
[2017-11-01] MEDS: SUCRALFATE 1 GM TAB PO SCH ×4 (11:14→20:45)
[2017-11-01] MEDS: methylPREDNISolone SOD SUCCI 40 MG/ML 1 ML VIAL IV SCH ×3 (11:14→23:11)
[2017-11-01] MEDS: DULoxetine HCL 30 MG CAPSULE.DR PO SCH (11:15)
[2017-11-01] MEDS: ARTIFICIAL TEARS-HYPROMELLOSE DROPS 15 ML BTL BOTH EYES SCH ×2 (11:15→20:46)
[2017-11-01] MEDS: LACTULOSE 20 GM/30 ML CUP PO SCH ×2 (11:16→20:47)
[2017-11-01] MEDS: guaiFENesin 600 MG TABLET.ER PO SCH ×2 (11:16→20:46)
[2017-11-01] MEDS: TOPIRAMATE 25 MG TAB PO SCH ×2 (11:17→20:45)
[2017-11-01] MEDS: OXYBUTYNIN XL 5 MG TAB.ER.24 PO SCH ×2 (11:17→20:46)
[2017-11-01] MEDS: POLYETHYLENE GLYCOL 3350 17 GM POWD.PACK PO SCH ×2 (11:17→20:47)
[2017-11-01] MEDS: methylPREDNISolone SOD SUCCI 125 MG/2 ML VIAL IV SCH (13:07)
--- NOTE | 2017-11-01 15:22 | P.PN ---
Subjective Progress Note Date: 11/01/17 Principal diagnosis: Generalized weakness and UTI Patient continued to be hemodynamic a stable no major events reported by nursing staff patient's currently is complaining of generalized weakness stated that it's very hard for her to do her normal daily activities at the time she is to be independent at home. Stated that she became worse since last hospitalization in June and things are not going back to baseline. Patient is refusing to go to a rehab and said that she would like to go home when she is ready Objective - Vital Signs Vital signs: Vital Signs Temp 98.9 F 11/01/17 02:11 Pulse 92 11/01/17 07:33 Resp 16 11/01/17 02:11 BP 152/70 11/01/17 02:11 Pulse Ox 96 11/01/17 02:11 Intake & Output 10/31/17 11/01/17 11/01/17 18:59 06:59 18:59 Intake Total 1250 400 Output Total 350 Balance 1250 50 Weight 45.813 kg Intake: Intake, IV Titration 750 Amount Levofloxacin 500Mg-D5w 100 Pmx 500 mg In Dextrose/ Water 1 100ml.bag @ 100 mls/hr IVPB Q24H [facility] Rx#: [id number] Sodium Chloride 0.9% 1, 550 000 ml @ 100 mls/hr IV . Q10H ONE Rx#:[id number] metroNIDAZOLE-NS PMX 500 100 mg In Saline 1 100ml.bag @ 100 mls/hr IVPB Q8HR [facility] Rx#:[id number] Oral 500 400 Output: Urine 350 Other: Voiding Method Toilet # Voids 3 3 - Exam Gen.: in stated age, no acute distress Heart: Normal S1-S2 Lungs: Clear to auscultation bilaterally Abdomen: Soft, no tenderness, positive bowel sounds in all 4 quadrant no guarding or rebound Skin: No new rash Psych: Alert and oriented 3 Neuro: No focal deficit - Labs CBC & Chem 7: 11/01/17 06:54 11/01/17 06:54 Labs: Abnormal Lab Results - Last 24 Hours (Table) 11/01/17 11/01/17 Range/Units 06:54 06:54 RBC 3.40 L (3.80-5.40) m/uL Hgb 10.5 L (11.4-16.0) gm/dL Hct 31.6 L (34.0-46.0) % RDW 16.0 H (11.5-15.5) % Plt Count 140 L (150-450) k/uL Sodium 148 H (137-145) mmol/L Potassium 3.4 L (3.5-5.1) mmol/L Chloride 117 H (98-107) mmol/L Carbon Dioxide 20 L (22-30) mmol/L AST 40 H (14-36) U/L Assessment and Plan Assessment: 1. Urinary tract infection. 2. Anemia. 3. Hypokalemia. 4. Hypernatremia. 5. Dehydration. 6. Cholelithiasis. 7. Osteoarthritis 8. Coronary artery disease status post stent placement in July 2017. 9. Peripheral vascular disease. 10. Hyperlipidemia. 11. Tobacco dependency. 12. Migraine headache. Would continue IV antibiotics follow up on culture results continue with gentle hydration and encourage oral intake repeat electrolytes in the morning and replace her potassium at this point encourage oral intake and continue her home medication or sore evaluated the patient and recommended conservative management at this point general surgery recommended outpatient laparoscopic cholecystectomy and we will follow-up with the recommendation. We'll have physical and neck patient will therapy evaluated the patient prior to discharge and consider discharging once patient is improved
[2017-11-01] MEDS: BUTALB/APAP/CAFF 50-325-40MG TAB PO PRN ×2 (17:05→23:09)
[2017-11-01 17:34] LABS: Glucose,Whole Blood 131 mg/dL (75-99)
[2017-11-01] MEDS: INSULIN ASPART 100 UNIT/ML 1 ML 10 ML VIAL SQ SCH ×2 (18:23→20:46)
[2017-11-01 20:22] LABS: Glucose,Whole Blood 145 mg/dL (75-99)
[2017-11-01] MEDS: PRAMIPEXOLE 0.125 MG TAB PO SCH (20:45)
[2017-11-01] MEDS: PRAVASTATIN SODIUM 80 MG TAB PO SCH (20:45)
[2017-11-01] MEDS: ATENOLOL 12.5 MG TAB PO SCH (20:46)
[2017-11-01] MEDS: DULoxetine HCL 60 MG CAPSULE.DR PO SCH (20:46)
[2017-11-01] MEDS: traZODone HCL 50 MG TAB PO SCH (20:46)
[2017-11-01] MEDS: MELATONIN 5 MG TABLET PO SCH (20:47)
[2017-11-01 23:55] LABS: Hemoglobin A1C 5.4 % (4.0-6.0)
[2017-11-02] MEDS: IPRATROPIUM-ALBUTEROL 3 ML NEB INHALATION SCH ×4 (04:09→22:21)
[2017-11-02 07:01] LABS: Glucose,Whole Blood 150 mg/dL (75-99)
[2017-11-02 08:00] LABS: Basophils % (A) 0 %; Eosinophils % (A) 1 %; HCT 31.7 % (34.0-46.0); HGB 10.7 gm/dL (11.4-16.0); Lymphocytes # (A) 0.6 k/uL (1.0-4.8); Lymphocytes % (A) 13 %; MCH 30.9 pg (25.0-35.0); MCHC 33.7 g/dL (31.0-37.0); MCV 91.6 fL (80.0-100.0); Monocytes # (A) 0.2 k/uL (0-1.0); Monocytes % (A) 3 %; Neutrophils % (A) 82 %; Platelet Count 123 k/uL (150-450); RBC 3.46 m/uL (3.80-5.40); RDW 15.8 % (11.5-15.5); WBC 4.9 k/uL (3.8-10.6)
[2017-11-02] MEDS: BUDESONIDE 0.5 MG/2 ML NEBU INHALATION SCH ×2 (08:36→22:21)
[2017-11-02 08:57] LABS: ALT 25 U/L (9-52); AST 32 U/L (14-36); Albumin 3.4 g/dL (3.5-5.0); Alkaline Phosphatase 52 U/L (38-126); Anion Gap 10 mmol/L; Blood Urea Nitrogen 12 mg/dL (7-17); Calcium 8.5 mg/dL (8.4-10.2); Carbon Dioxide 21 mmol/L (22-30); Chloride 117 mmol/L (98-107); Glucose 135 mg/dL (74-99); Potassium 3.7 mmol/L (3.5-5.1); Sodium 148 mmol/L (137-145); Total Bilirubin 0.3 mg/dL (0.2-1.3)
[2017-11-02] MEDS: POLYETHYLENE GLYCOL 3350 17 GM POWD.PACK PO SCH ×2 (09:08→20:08)
[2017-11-02] MEDS: LACTULOSE 20 GM/30 ML CUP PO SCH ×2 (09:08→20:08)
[2017-11-02] MEDS: INSULIN ASPART 100 UNIT/ML 1 ML 10 ML VIAL SQ SCH ×4 (09:09→20:07)
[2017-11-02] MEDS: HEPARIN SODIUM,PORCINE 5,000 UNIT/ML 1 ML VIAL SQ SCH ×3 (09:10→23:24)
[2017-11-02] MEDS: methylPREDNISolone SOD SUCCI 40 MG/ML 1 ML VIAL IV SCH ×3 (09:10→23:24)
[2017-11-02] MEDS: DEXLANSOPRAZOLE 60 MG PO SCH (09:11)
[2017-11-02] MEDS: ALPRAZolam 1 MG TAB PO SCH ×3 (09:14→22:25)
[2017-11-02] MEDS: TOPIRAMATE 25 MG TAB PO SCH ×2 (09:14→20:06)
[2017-11-02] MEDS: DULoxetine HCL 30 MG CAPSULE.DR PO SCH (09:14)
[2017-11-02] MEDS: metroNIDAZOLE-NS PMX 500 MG in SALINE 1 100ML.BAG IVPB SCH (09:15)
[2017-11-02] MEDS: OXYBUTYNIN XL 5 MG TAB.ER.24 PO SCH ×2 (09:15→20:06)
[2017-11-02] MEDS: guaiFENesin 600 MG TABLET.ER PO SCH ×2 (09:15→20:07)
[2017-11-02] MEDS: SUCRALFATE 1 GM TAB PO SCH ×4 (09:15→20:07)
[2017-11-02] MEDS: ARTIFICIAL TEARS-HYPROMELLOSE DROPS 15 ML BTL BOTH EYES SCH ×2 (09:15→20:06)
[2017-11-02 11:22] LABS: Glucose,Whole Blood 68 mg/dL (75-99)
--- NOTE | 2017-11-02 12:02 | P.PN ---
Progress Note - Text Progress Note Date: 11/02/17 The patient range stable. She still has some mild complaints of right-sided abdominal pain. On exam her vital signs are stable. Her abdomen soft. Patient will be discharged home per medicine. She'll follow-up as an outpatient for possible laparoscopic ostectomy for biliary hyperkinesis.
[2017-11-02 12:09] LABS: Glucose,Whole Blood 89 mg/dL (75-99)
[2017-11-02 17:27] LABS: Glucose,Whole Blood 137 mg/dL (75-99)
[2017-11-02] MEDS: metroNIDAZOLE 500 MG TAB PO SCH ×2 (18:12→23:24)
[2017-11-02 20:04] LABS: Glucose,Whole Blood 116 mg/dL (75-99)
[2017-11-02] MEDS: traZODone HCL 50 MG TAB PO SCH (20:06)
[2017-11-02] MEDS: PRAVASTATIN SODIUM 80 MG TAB PO SCH (20:06)
[2017-11-02] MEDS: MELATONIN 5 MG TABLET PO SCH (20:07)
[2017-11-02] MEDS: DULoxetine HCL 60 MG CAPSULE.DR PO SCH (20:07)
[2017-11-02] MEDS: PRAMIPEXOLE 0.125 MG TAB PO SCH (20:07)
[2017-11-02] MEDS: ATENOLOL 12.5 MG TAB PO SCH (20:07)
[2017-11-02] MEDS ORDERED: LEVOFLOXACIN 500 MG TAB PO SCH (21:00)
--- NOTE | 2017-11-02 21:55 | P.PN ---
Subjective Progress Note Date: 11/02/17 Principal diagnosis: Generalized weakness and UTI Patient continued to be hemodynamic a stable no major events reported by nursing staff patient's currently is complaining of generalized weakness. Stated that she became worse since last hospitalization in June and things are not going back to baseline. Patient is refusing to go to a rehab and said that she would like to go home when she is ready Objective - Vital Signs Vital signs: Vital Signs Temp 98.0 F 11/02/17 15:00 Pulse 94 11/02/17 15:00 Resp 16 11/02/17 15:00 BP 162/84 11/02/17 15:00 Pulse Ox 95 11/02/17 15:00 Intake & Output 11/02/17 11/02/17 11/03/17 06:59 18:59 06:59 Intake Total 200 240 Balance 200 240 Intake: Intake, IV Titration 100 Amount metroNIDAZOLE-NS PMX 500 100 mg In Saline 1 100ml.bag @ 100 mls/hr IVPB Q8HR [facility] Rx#:[id number] Oral 100 240 Other: # Voids 1 1 # Bowel Movements 1 - Exam Gen.: in stated age, no acute distress Heart: Normal S1-S2 Lungs: Clear to auscultation bilaterally Abdomen: Soft, no tenderness, positive bowel sounds in all 4 quadrant no guarding or rebound Skin: No new rash Psych: Alert and oriented 3 Neuro: No focal deficit - Labs CBC & Chem 7: 11/02/17 07:03 11/02/17 07:03 Labs: Abnormal Lab Results - Last 24 Hours (Table) 11/02/17 11/02/17 11/02/17 Range/Units 06:58 07:03 07:03 RBC 3.46 L (3.80-5.40) m/uL Hgb 10.7 L (11.4-16.0) gm/dL Hct 31.7 L (34.0-46.0) % RDW 15.8 H (11.5-15.5) % Plt Count 123 L (150-450) k/uL Lymphocytes # 0.6 L (1.0-4.8) k/uL Sodium 148 H (137-145) mmol/L Chloride 117 H (98-107) mmol/L Carbon Dioxide 21 L (22-30) mmol/L Glucose 135 H (74-99) mg/dL POC Glucose (mg/dL) 150 H (75-99) mg/dL Total Protein 6.0 L (6.3-8.2) g/dL Albumin 3.4 L (3.5-5.0) g/dL 11/02/17 11/02/17 11/02/17 Range/Units 11:18 17:14 20:03 RBC (3.80-5.40) m/uL Hgb (11.4-16.0) gm/dL Hct (34.0-46.0) % RDW (11.5-15.5) % Plt Count (150-450) k/uL Lymphocytes # (1.0-4.8) k/uL Sodium (137-145) mmol/L Chloride (98-107) mmol/L Carbon Dioxide (22-30) mmol/L Glucose (74-99) mg/dL POC Glucose (mg/dL) 68 L 137 H 116 H (75-99) mg/dL Total Protein (6.3-8.2) g/dL Albumin (3.5-5.0) g/dL Assessment and Plan Assessment: 1. Urinary tract infection. 2. Anemia. 3. Hypokalemia. 4. Hypernatremia. 5. Dehydration. 6. Cholelithiasis. 7. Osteoarthritis 8. Coronary artery disease status post stent placement in July 2017. 9. Peripheral vascular disease. 10. Hyperlipidemia. 11. Tobacco dependency. 12. Migraine headache. Would continue IV antibiotics follow up on culture results continue with gentle hydration and encourage oral intake repeat electrolytes in the morning and replace her potassium at this point encourage oral intake and continue her home medication Orthopedic surgery evaluated the patient and recommended conservative management at this point general surgery recommended outpatient laparoscopic cholecystectomy and we will follow-up with the recommendation. We' ll have physical and neck patient will therapy evaluated the patient prior to discharge and consider discharging once patient is improved
[2017-11-03] MEDS: ONDANSETRON 4 MG/2 ML VIAL IVP PRN (02:00)
[2017-11-03 02:06] VITALS: RESP 16
[2017-11-03] MEDS: IPRATROPIUM-ALBUTEROL 3 ML NEB INHALATION SCH ×3 (04:30→16:27)
[2017-11-03 06:54] LABS: Glucose,Whole Blood 102 mg/dL (75-99)
[2017-11-03 07:55] LABS: Anisocytosis Slight; Basophils % (A) 0 %; Eosinophils % (A) 0 %; HCT 31.2 % (34.0-46.0); HGB 9.9 gm/dL (11.4-16.0); Lymphocytes # (A) 0.7 k/uL (1.0-4.8); Lymphocytes % (A) 16 %; MCH 29.2 pg (25.0-35.0); MCHC 31.7 g/dL (31.0-37.0); MCV 92.1 fL (80.0-100.0); Mean Platelet Volume 8.2; Monocytes # (A) 0.2 k/uL (0-1.0); Monocytes % (A) 5 %; Neutrophils # (A) 3.4 k/uL (1.3-7.7); Neutrophils % (A) 78 %; Platelet Count 115 k/uL (150-450); RBC 3.39 m/uL (3.80-5.40); RDW 16.5 % (11.5-15.5); WBC 4.4 k/uL (3.8-10.6)
[2017-11-03] MEDS: DEXLANSOPRAZOLE 60 MG PO SCH (08:35)
[2017-11-03] MEDS: SUCRALFATE 1 GM TAB PO SCH ×3 (08:36→17:42)
[2017-11-03] MEDS: HEPARIN SODIUM,PORCINE 5,000 UNIT/ML 1 ML VIAL SQ SCH ×2 (08:36→17:39)
[2017-11-03] MEDS: methylPREDNISolone SOD SUCCI 40 MG/ML 1 ML VIAL IV SCH ×2 (08:36→17:42)
[2017-11-03] MEDS: metroNIDAZOLE 500 MG TAB PO SCH ×2 (08:37→17:39)
[2017-11-03] MEDS: ARTIFICIAL TEARS-HYPROMELLOSE DROPS 15 ML BTL BOTH EYES SCH (08:38)
[2017-11-03] MEDS: LACTULOSE 20 GM/30 ML CUP PO SCH (08:39)
[2017-11-03] MEDS: TOPIRAMATE 25 MG TAB PO SCH (08:39)
[2017-11-03] MEDS: OXYBUTYNIN XL 5 MG TAB.ER.24 PO SCH (08:40)
[2017-11-03] MEDS: POLYETHYLENE GLYCOL 3350 17 GM POWD.PACK PO SCH (08:40)
[2017-11-03] MEDS: guaiFENesin 600 MG TABLET.ER PO SCH (08:40)
[2017-11-03] MEDS: DULoxetine HCL 30 MG CAPSULE.DR PO SCH (08:40)
[2017-11-03] MEDS: INSULIN ASPART 100 UNIT/ML 1 ML 10 ML VIAL SQ SCH ×3 (08:41→17:40)
[2017-11-03] MEDS: BUDESONIDE 0.5 MG/2 ML NEBU INHALATION SCH (08:59)
[2017-11-03] MEDS: ALPRAZolam 1 MG TAB PO SCH ×2 (09:40→17:42)
[2017-11-03 11:35] LABS: Glucose,Whole Blood 116 mg/dL (75-99)
[2017-11-03 15:16] VITALS: BP 130/60; PULSE 82; TEMP 96.7
--- NOTE | 2017-11-03 16:45 | P.PN ---
Progress Note - Text Progress Note Date: 11/03/17 The patient's pain is improved. She's being discharged home today. On exam her vital signs are stable. Her abdomen soft there is decreased right- sided abdominal pain. The patient will follow-up as an outpatient for laparoscopic ostectomy for biliary dysfunction.
[2017-11-03 17:15] LABS: Glucose,Whole Blood 118 mg/dL (75-99)
--- NOTE | 2017-11-04 17:45 | P.DS ---
Providers Date of admission: 11/01/17 17:24 Expected date of discharge: 11/03/17 Attending physician: Vidal Tate Consults: 10/30/17 16:44 Consult Physician Routine Consulting Provider: Darius Milligan Consult Reason/Comments: known Do you want consulting provider notified?: Yes [facility] care physician[facility]: This is a 67-year-old female one of Dr. Colbert patient with past medical history of hepatitis C post the Harvoni therapy with history of CAD COPD asthma and previous history of DVT along with Takosubu syndrome ,GI bleed ( April 2016) being discharged home. 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 Islas at that time. She presents to the emergency room with recurrent lower pelvic pain, Bilateral location, no guarding, nausea, bloating, but no upper abdominal pain no Sykse' s sign no chest pain history of hysterectomy, and was seen by the past general surgeon Dr. Negron for which an upper endoscopy was performed, however and lower endoscopy still needs to be done, patient did not get this test done secondary to an illness. She has multiple imaging done from a facility all of which were reviewed including CAT scans of the abdomen and pelvis, all of which were showing moderate amount of retained stools, avascular necrosis of bilateral femoral heads, infrarenal abdominal aortic aneurysm with aortoiliac endograft and common iliac aneurysm, Her most recent CT was 10/30/2017, shows focal aneurysm at the left common iliac artery stent graft measuring 3.2 cm, aneurysm the landing zone at the right common iliac, 2.6 cm with moderate focal stenosis just beyond, stent graft remains patent tat[place]k sac measures 4.4 cm unchanged, and this was reviewed with the radiologist, there is no and no endo leak noted. Patient has a mildly hydropic gallbladder, without surrounding inflammation, portal venous system is patent, no common bile duct dilatation. No adnexal mass noted, no pericolonic inflammation noted, moderate stools in the sigmoid this was done with IV contrast, she was premedicated with 125 mg IV methylprednisolone prior to contrast studies. HIDA scan of the gallbladder shows hyperkinetic gallbladder 97%, no evidence of cholecystitis I contacted the radiologist to reexamine imaging findings on CAT scan, she was not impressed about the pyelonephritis changes in the CAT scan, there is one small cortical cysts noted, urine WBC was 4 currently without any dysuria, she was recently treated for urinary tract infection 10/11/2017, she was seen at the emergency room for this. The radiologis, Dr. Colmenares did not see any psoas abscess, no Endo leak, AVN is noted in bilateral femoral heads, mild nature, but with recurrent and persistence of severe pelvic pain, we will proceed to have an MRI, pelvis . Consult was made with Dr. Milligan 11/03: Patient has been hemodynamically stable, afebrile. Hemoglobin 9.9. Patient will be discharged home today in stable condition. Patient has been seen and followed by Dr. Milligan with plan to follow-up as an outpatient for laparoscopic ostectomy for biliary dysfunction. Patient evaluated by orthopedics , Dr. Neri Park. Patient denied any complaints of bilateral hip pain. No surgical intervention is planned and patient can follow up as an outpatient as needed. Xray bilat hip and pelvis revealed bilat femoral head avascular necrosis. No acute fracture. Patient is scheduled for OP MRI of the abdomen for severe pelvic pain which was unable to be done while hospitalized. Discharge diagnoses: 1. Recurrent severe bilateral pelvic pain, of unclear etiology, possible constipation. 2. Hydropic gallbladder with biliary hyperkinesia EF of 97%, she has some nausea and bloating with this, but not pain, no evidence of ascending cholangitis or cholecystitis 3. Dehydration 4. Bilateral avascular necrosis bilateral femoral on imaging 5. History of Viridans strep bacteremia secondary to endovascular infection September 04 4 weeks IV vancomycin completed. 6. Recent non-ST elevated myocardial infarction status post heart catheterization finding patent stent in the RCA and heavily calcified right and left coronary systems in July 2017. 7. Acute bronchospasm possibly related to IV contrast exposure symptoms improved Appears stable at this time. 8. Peripheral vascular disease. 9. Chronic back pain. 10. Chronic anemia of chronic disease. 11 PUD. 12. Hep C S/P Harvoni therapy. 13. Hyperlipidemia. 14. Abdominal aortic aneurysm S/P endovascular stent. 15. Chronic tobacco use and dependence. 16. Migraine Headache. 17. Hypertension and hypertensive cardiovascular disease. 18. Restless leg syndrome. 19. Obstructive sleep apnea. Stable. 20. Generalized anxiety disorder with panic disorder Depression, recurrent. 21. Overactive bladder. 22. Postmenopausal vaginal bleeding. 23. Insomnia. 24. Chronic constipation. Discharge plan: Home with [facility]NA Impression and plan of care have been directed as dictated by the signing physician. Coby Joaquin nurse practitioner acting as scribe for signing physician. Patient Condition at Discharge: Good Plan - Discharge Summary Discharge Rx Participant: Yes New Discharge Prescriptions: New Lactulose [Cephulac] 20 gm PO BID #60 dose Levofloxacin [Levaquin] 500 mg PO DAILY 3 Days #3 tab Continue Sucralfate [Carafate] 1 gm PO ACHS Atenolol [Tenormin] 12.5 mg PO HS Dexlansoprazole [Dexilant] 60 mg PO DAILY Tiotropium 18 Mcg/Puff [Spiriva] 1 cap INHALATION RT-HS Pramipexole [Mirapex] 0.125 mg PO HS Topiramate [Topamax] 50 mg PO BID Cholecalciferol [Vitamin D3] 1,000 unit PO DAILY Melatonin 5 mg PO HS #30 tablet DULoxetine HCL [Cymbalta] 60 mg PO HS DULoxetine HCL [Cymbalta] 30 mg PO DAILY Nitroglycerin Sl Tabs [Nitrostat] 0.4 mg SUBLINGUAL Q5M PRN #25 tab PRN Reason: Angina Calcium Carbonate [Calcium] 600 mg PO BID Aspirin 81 mg PO DAILY chew guaiFENesin [Mucinex] 1,200 mg PO Q12HR tablet.er Pravastatin Sodium [Pravachol] 80 mg PO HS #0 tab Polyethylene Glycol 3350 [Miralax] 17 gm PO BID #0 powd.pack traZODone HCL [Desyrel] 50 mg PO HS ALPRAZolam [Xanax] 1 mg PO TID #90 tablet Butalb/APAP/Caff 50-325-40Mg [Fioricet 50-325-40] 0.5 tab PO Q4H PRN #60 tab PRN Reason: pain cloNIDine HCL [Catapres] 0.1 mg PO Q8H PRN PRN Reason: BP > 160 Artificial Tears-Hypromellose [Artificial Tear Drops] 1 drops BOTH EYES BID Acetaminophen [Tylenol] 650 mg PO Q6H PRN PRN Reason: Pain Meclizine [Antivert] 12.5 mg PO Q8H PRN PRN Reason: Vertigo Docosanol [Abreva] 1 applic TP BID Oxybutynin Xl [Ditropan XL] 5 mg PO BID Ipratropium-Albuterol Nebulize [Duoneb 0.5 mg-3 mg/3 ml Soln] 3 ml INHALATION RT-Q6H Budesonide [Pulmicort] 0.5 mg INHALATION RT-Q12H Albuterol Nebulized [Ventolin Nebulized] 2.5 mg INHALATION RT-Q8H PRN PRN Reason: Shortness Of Breath Metoclopramide [Reglan] 5 mg PO ACHS #15 tab traMADol HCL [Ultram] 50 mg PO Q12H PRN #20 tab PRN Reason: Pain Discharge Medication List Atenolol [Tenormin] 12.5 mg PO HS 12/27/13 [History] Dexlansoprazole [Dexilant] 60 mg PO DAILY 12/27/13 [History] Sucralfate [Carafate] 1 gm PO ACHS 12/27/13 [History] Pramipexole [Mirapex] 0.125 mg PO HS 09/12/14 [History] Tiotropium 18 Mcg/Puff [Spiriva] 1 cap INHALATION RT-HS 09/12/14 [History] Topiramate [Topamax] 50 mg PO BID 05/03/15 [History] Cholecalciferol [Vitamin D3] 1,000 unit PO DAILY 02/13/17 [History] Melatonin 5 mg PO HS #30 tablet 02/16/17 [Rx] DULoxetine HCL [Cymbalta] 30 mg PO DAILY 07/18/17 [History] DULoxetine HCL [Cymbalta] 60 mg PO HS 07/18/17 [History] Nitroglycerin Sl Tabs [Nitrostat] 0.4 mg SUBLINGUAL Q5M PRN #25 tab 07/22/17 [Rx ] Calcium Carbonate [Calcium] 600 mg PO BID 08/25/17 [History] Aspirin 81 mg PO DAILY chew 09/02/17 [Rx] Polyethylene Glycol 3350 [Miralax] 17 gm PO BID #0 powd.pack 09/02/17 [Rx] Pravastatin Sodium [Pravachol] 80 mg PO HS #0 tab 09/02/17 [Rx] guaiFENesin [Mucinex] 1,200 mg PO Q12HR tablet.er 09/02/17 [Rx] traZODone HCL [Desyrel] 50 mg PO HS 09/09/17 [History] ALPRAZolam [Xanax] 1 mg PO TID #90 tablet 09/12/17 [Rx] Butalb/APAP/Caff 50-325-40Mg [Fioricet 50-325-40] 0.5 tab PO Q4H PRN #60 tab [Rx] Acetaminophen [Tylenol] 650 mg PO Q6H PRN 10/11/17 [History] Albuterol Nebulized [Ventolin Nebulized] 2.5 mg INHALATION RT-Q8H PRN 10/11/17 [ History] Artificial Tears-Hypromellose [Artificial Tear Drops] 1 drops BOTH EYES BID [History] Budesonide [Pulmicort] 0.5 mg INHALATION RT-Q12H 10/11/17 [History] Docosanol [Abreva] 1 applic TP BID 10/11/17 [History] Ipratropium-Albuterol Nebulize [Duoneb 0.5 mg-3 mg/3 ml Soln] 3 ml INHALATION RT -Q6H 10/11/17 [History] Meclizine [Antivert] 12.5 mg PO Q8H PRN 10/11/17 [History] Metoclopramide [Reglan] 5 mg PO ACHS #15 tab 10/11/17 [Rx] Oxybutynin Xl [Ditropan XL] 5 mg PO BID 10/11/17 [History] cloNIDine HCL [Catapres] 0.1 mg PO Q8H PRN 10/11/17 [History] traMADol HCL [Ultram] 50 mg PO Q12H PRN #20 tab 10/11/17 [Rx] Lactulose [Cephulac] 20 gm PO BID #60 dose 11/03/17 [Rx] Levofloxacin [Levaquin] 500 mg PO DAILY 3 Days #3 tab 11/03/17 [Rx] Follow up Appointment(s)/Referral(s): Jenaro Colbert DO [Primary Care Provider] - 1 Week (Office to call patient to make follow up appointment) [facility] Visiting Nurse, [NON-STAFF] - Darius Milligan MD [STAFF PHYSICIAN] - 11/11/17 2:45 pm Patient Instructions/Handouts: Urinary Tract Infection in Women (DC) Discharge Disposition: HOME SELF-CARE
== END 2017-11-03 18:15 | disposition home or self-care (01) | DRG 392 ==
LOC: EC 13:47 → 3SUR 17:24 → OBSVTOIN 11-01 17:24
PROVIDERS: ADMIT Internal Medicine; ATTEND Internal Medicine
DX: K59.09 Other constipation (principal); E87.0 Hyperosmolality and hypernatremia; K82.1 Hydrops of gallbladder; R64 Cachexia; I72.3 Aneurysm of iliac artery; F33.9 Major depressive disorder, recurrent, unspecified; N12 Tubulo-interstitial nephritis, not specified as acute or chronic; M87.9 Osteonecrosis, unspecified; I11.9 Hypertensive heart disease without heart failure; B19.20 Unspecified viral hepatitis C without hepatic coma; D63.8 Anemia in other chronic diseases classified elsewhere; E78.5 Hyperlipidemia, unspecified; E86.0 Dehydration; E87.6 Hypokalemia; F17.200 Nicotine dependence, unspecified, uncomplicated; F41.0 Panic disorder [episodic paroxysmal anxiety]; F41.1 Generalized anxiety disorder; G25.81 Restless legs syndrome; G43.909 Migraine, unspecified, not intractable, without status migrainosus; G47.00 Insomnia, unspecified; G47.33 Obstructive sleep apnea (adult) (pediatric); G89.29 Other chronic pain; M54.9 Dorsalgia, unspecified; I25.10 Atherosclerotic heart disease of native coronary artery without angina pectoris; I25.2 Old myocardial infarction; I71.4 Abdominal aortic aneurysm, without rupture; I73.9 Peripheral vascular disease, unspecified; K21.9 Gastro-esophageal reflux disease without esophagitis; K27.9 Peptic ulcer, site unspecified, unspecified as acute or chronic, without hemorrhage or perforation; K80.20 Calculus of gallbladder without cholecystitis without obstruction; M19.90 Unspecified osteoarthritis, unspecified site; N32.81 Overactive bladder; Z79.82 Long term (current) use of aspirin; Z79.899 Other long term (current) drug therapy; Z82.49 Family history of ischemic heart disease and other diseases of the circulatory system; Z82.5 Family history of asthma and other chronic lower respiratory diseases; Z86.718 Personal history of other venous thrombosis and embolism; Z90.710 Acquired absence of both cervix and uterus; Z95.5 Presence of coronary angioplasty implant and graft; J98.01 Acute bronchospasm; T50.8X5A Adverse effect of diagnostic agents, initial encounter; Z88.5 Allergy status to narcotic agent; Z88.0 Allergy status to penicillin; Z88.2 Allergy status to sulfonamides; Z88.6 Allergy status to analgesic agent; Z88.1 Allergy status to other antibiotic agents; Z91.030 Bee allergy status; Z91.041 Radiographic dye allergy status; Z91.040 Latex allergy status
CPT/HCPCS: 36415; 73521; 74018; 74177; 78227; 80053; 81001; 82150; 83036; 83690; 85025; 94640; 96361; 96374; 96375; 99285

== ENCOUNTER 2017-11-28 06:49 | Day surgery (SDC) | payer MEDICARE ==
[2017-11-21 14:45] VITALS: BMI 17.2
[~2017-11-28 06:49] MED LIST changes: +DEXAMETHASONE SOD PHOSPHATE 10 MG/ML 1 ML VIAL IV ONE; +HEPARIN SODIUM,PORCINE 5,000 UNIT/ML 1 ML VIAL SQ ONE; -LIDOCAINE 1% 20 ML VIAL (10MG/ML) FOR IV START INTRADERMA PRN; +MIDAZOLAM 2 MG/2 ML VIAL IV PRN; +ONDANSETRON 4 MG/2 ML VIAL IVP ONE; +SCOPOLAMINE 1.5MG/72HR PATCH TRANSDERM ONE; +ceFAZolin IN SWFI 2 GM/20 ML SYRINGE IVP ONE; +fentaNYL (PF) 50 MCG/ML 2 ML AMP IV PRN
[2017-11-28 07:38] VITALS: RESP 16
[2017-11-28] MEDS ORDERED: LIDOCAINE 1% 20 ML VIAL (10MG/ML) FOR IV START INTRADERMA ONE (07:50)
--- NOTE | 2017-11-28 07:50 | P.GSHP ---
History of Present Illness H&P Date: 11/28/17 Chief Complaint: Right upper quadrant pain This 67-year-old female who presents today for laparoscopic cholestatic. She's had complaints of recurrent quadrant pain. Her recent HIDA scan shows an elevated ejection fraction of 97% consistent with biliary hyperkinesia. Past Medical History Past Medical History: Asthma, Chest Pain / Angina, COPD, Deep Vein Thrombosis ( DVT), GERD/Reflux, Hypertension, Liver Disease, Myocardial Infarction (NV), Musculoskeletal Disorder, Pneumonia, Sleep Apnea/CPAP/BIPAP, Vascular Disorder Additional Past Medical History / Comment(s): Abominal Aortic Aneurysm (HAD SX) , Hx. DVT RT LEG, HEP C, BACK PROB, DDD., RLS. amenia-iron infusons x2. Uses oxygen @ 2 L per nc. Has a visiting nurse come to the house 1-2 times per week. Patient states they are watching my AAA for now. Last Myocardial Infarction Date:: 06/2011 History of Any Multi-Drug Resistant Organisms: None Reported Past Surgical History: Bladder Surgery, Heart Catheterization With Stent, Hysterectomy, Orthopedic Surgery Additional Past Surgical History / Comment(s): HEART STENT 2010. AAA STENT 2005. VARICOSE VEIN STRIPPING R leg. EXP LAP. LIVER/BX, HAD RT FOOT SURGERY D/ T SALMONELLA INFECTION. R SHOULDER SCOPE. COLONOSCOPY-NORMAL. BLADDER SUSPENSIONS. Past Anesthesia/Blood Transfusion Reactions: No Reported Reaction Date of Last Stent Placement:: 2010 Smoking Status: Current every day smoker - Past Family History Brother(s) Family Medical History: Coronary Artery Disease (CAD), Myocardial Infarction (NV ) Father Additional Family Medical History / Comment(s): FROM CIRRHOSIS OF THE LIVER Mother Family Medical History: COPD Additional Family Medical History / Comment(s): FROM AAA, HAD HX of exposure to TB. Medications and Allergies Home Medications Medication Instructions Recorded Confirmed Type Atenolol [Tenormin] 12.5 mg PO HS 12/27/13 11/28/17 History Dexlansoprazole [Dexilant] 60 mg PO DAILY 12/27/13 11/28/17 History Sucralfate [Carafate] 1 gm PO ACHS 12/27/13 11/28/17 History Pramipexole [Mirapex] 0.125 mg PO HS 09/12/14 11/28/17 History Tiotropium 18 Mcg/Puff [Spiriva] 1 cap INHALATION RT-HS 09/12/14 11/28/17 History Topiramate [Topamax] 50 mg PO BID 05/03/15 11/28/17 History Melatonin 5 mg PO HS #30 tablet 02/16/17 11/28/17 Rx DULoxetine HCL [Cymbalta] 30 mg PO DAILY 07/18/17 11/28/17 History DULoxetine HCL [Cymbalta] 60 mg PO HS 07/18/17 11/28/17 History Nitroglycerin Sl Tabs [Nitrostat] 0.4 mg SUBLINGUAL Q5M PRN #25 tab 07/22/17 Rx Aspirin 81 mg PO DAILY chew 09/02/17 11/28/17 Rx Polyethylene Glycol 3350 [Miralax] 17 gm PO BID #0 powd.pack 09/02/17 11/28/17 Rx Pravastatin Sodium [Pravachol] 80 mg PO HS #0 tab 09/02/17 11/28/17 Rx guaiFENesin [Mucinex] 1,200 mg PO Q12HR tablet.er 09/02/17 11/28/17 Rx traZODone HCL [Desyrel] 50 mg PO HS 09/09/17 11/28/17 History ALPRAZolam [Xanax] 1 mg PO TID #90 tablet 09/12/17 11/28/17 Rx Butalb/APAP/Caff 50-325-40Mg 0.5 tab PO Q4H PRN #60 tab 09/12/17 11/28/17 Rx [Fioricet 50-325-40] Acetaminophen [Tylenol] 650 mg PO Q6H PRN 10/11/17 11/28/17 History Albuterol Nebulized [Ventolin 2.5 mg INHALATION RT-Q8H PRN 10/11/17 11/28/17 History Nebulized] Artificial Tears-Hypromellose 1 drops BOTH EYES BID 10/11/17 11/28/17 History [Artificial Tear Drops] Ipratropium-Albuterol Nebulize 3 ml INHALATION RT-Q6H 10/11/17 11/28/17 History [Duoneb 0.5 mg-3 mg/3 ml Soln] Meclizine [Antivert] 12.5 mg PO Q8H PRN 10/11/17 11/28/17 History Oxybutynin Xl [Ditropan XL] 5 mg PO BID 10/11/17 11/28/17 History cloNIDine HCL [Catapres] 0.1 mg PO Q8H PRN 10/11/17 11/28/17 History traMADol HCL [Ultram] 50 mg PO Q12H PRN #20 tab 10/11/17 11/28/17 Rx Lactulose [Cephulac] 20 gm PO BID #60 dose 11/03/17 11/28/17 Rx Allergies Allergy/AdvReac Type Severity Reaction Status Date / Time naproxen sodium [From Aleve] Allergy Severe Anaphylaxis Verified 11/28/17 07:28 adhesive Allergy Rash/Hives Verified 11/28/17 07:28 cinnamon [Cinnamon] Allergy Dyspnea Verified 11/28/17 07:28 clindamycin Allergy Anaphylaxis Verified 11/28/17 07:28 codeine Allergy Nausea & Verified 11/28/17 07:28 Vomiting gentamicin [Gentamicin] Allergy SWELLING Verified 11/28/17 07:28 OF FACE W/ EYE DROPS paola Allergy Dyspnea Verified 11/28/17 07:28 Iodinated Contrast- Oral and Allergy Dyspnea Verified 11/28/17 07:28 IV Dye latex Allergy Rash/Hives Verified 11/28/17 07:28 levothyroxine sodium Allergy Unknown Verified 11/28/17 07:28 [From Synthroid] montelukast sodium Allergy Wheezing Verified 11/28/17 07:28 [From Singulair] pantoprazole sodium Allergy Abdominal Verified 11/28/17 07:28 [From Protonix] Pain Penicillins Allergy Rash/Hives Verified 11/28/17 07:28 red dye Allergy Abdominal Verified 11/28/17 07:28 Pain Sulfa (Sulfonamide Allergy Swelling Verified 11/28/17 07:28 Antibiotics) IN MOUTH sulfamethoxazole Allergy swelling Verified 11/28/17 07:28 [From Bactrim] tongue trimethoprim [From Bactrim] Allergy Swelling Verified 11/28/17 07:28 venom-honey bee Allergy Dyspnea Verified 11/28/17 07:28 [bee venom (honey bee)] BANDAIDS Allergy Rash/Hives Uncoded 11/28/17 07:28 Dye for gallbladder scan. Allergy Anaphylaxis Uncoded 11/28/17 07:28 tomatoes AdvReac Abdominal Uncoded 11/28/17 07:28 Pain Surgical - Exam Vital Signs Temp Pulse Resp BP Pulse Ox 97.8 F 97 16 196/78 97 11/28/17 07:36 11/28/17 07:36 11/28/17 07:36 11/28/17 07:36 11/28/17 07:36 - General well developed, no distress - Eyes PERRL - ENT normal pinna - Neck no masses - Respiratory normal expansion - Cardiovascular Rhythm: regular - Abdomen Mild right upper quadrant pain Assessment and Plan Assessment: Right upper quadrant pain Abnormal HIDA scan Perform laparoscopic cholecystectomy.
[2017-11-28] MEDS ORDERED: fentaNYL (PF) 50 MCG/ML 2 ML AMP ONE (07:54)
[2017-11-28] MEDS ORDERED: PROPOFOL 10 MG/ML 20 ML VIAL IV ONE (07:54)
[2017-11-28] MEDS ORDERED: BUPIVACAINE (PF) 0.25% 30 ML VIAL SQ ONE (07:54)
[2017-11-28] MEDS ORDERED: NEOSTIGMINE 1 MG/ML 10 ML VIAL ONE (07:54)
[2017-11-28] MEDS ORDERED: SUCCINYLCHOLINE CHLORIDE 100 MG/5 ML SYR IV ONE (07:54)
[2017-11-28] MEDS ORDERED: GLYCOPYRROLATE 0.2 MG/ML 2 ML VIAL ONE (07:54)
[2017-11-28] MEDS ORDERED: LIDOCAINE 1% INJ 10MG/ML (20 ML MDV) ONE (07:54)
[2017-11-28] MEDS ORDERED: ROCURONIUM BROMIDE 10 MG/ML 10 ML VIAL IV ONE (07:54)
[2017-11-28] MEDS ORDERED: MIDAZOLAM 2 MG/2 ML VIAL ONE (07:54)
--- NOTE | 2017-11-28 08:39 | P.OP ---
Date of Procedure: 11/28/17 Preoperative Diagnosis: Chronic cholecystitis Postoperative Diagnosis: Chronic cholecystitis Hydrops of gallbladder Procedure(s) Performed: Laparoscopic cholecystectomy Anesthesia: MARIANGEL Surgeon: Darius Milligan Estimated Blood Loss (ml): 5 Pathology: other (Gallbladder) Condition: stable Disposition: PACU Description of Procedure: The patient was placed on the operating table. The patient received a general endotracheal tube anesthesia. The patients abdomen was prepped and draped in the usual sterile fashion. Through an infraumbilical stab incision, the fascia of the anterior abdominal wall was grasped with a pair of Kochers and then the Veress needle was placed in the peritoneal cavity. Position of the Veress needle was confirmed with positive drop test. The abdomen was then insufflated. After adequate insufflation, the 10 mm trocar was placed in the peritoneal cavity. Following this the laparoscope was placed in the peritoneal cavity. The patient was placed in the head-up, right side up position and then a 5 mm trocar was placed in the right lateral and right subcostal position under direct visualization. A 8 mm trocar was placed in the epigastric position. The gallbladder was grasped in the fundus and infundibulum. Traction on the gallbladder was placed in the lateral and the cephalad positions. The triangle of Calot was visualized.. The cystic duct was bluntly dissected until the union of the cystic duct and common bile duct was seen. The cystic duct was then divided and sealed with the Harmonic scissors. A PDS Endoloop was then placed throughout the cystic duct stump. The cystic artery divided and sealed with the Harmonic scissors. The gallbladder was then removed from the liver bed using Harmonic scissors. The gallbladder was then extracted through the epigastric port site. Operative field was checked for any bleeding spots and Harmonic scissors was used to coagulate the liver bed. The abdomen was irrigated. The trocars were removed. The skin was closed using interrupted 3-0 Vicryl suture. Dermabond dressing were applied. The patient tolerated the procedure well.
[2017-11-28] MEDS ORDERED: hydrALAZINE HCL 20 MG/ML 1 ML VIAL IVP ONE (09:04)
[2017-11-28 09:09] VITALS: TEMP 97.7
[2017-11-28] MEDS ORDERED: HYDROcodone/APAP 7.5-325MG 1 EACH TAB PO ONE (10:28)
[2017-11-28] MEDS ORDERED: LACTATED RINGERS 1,000 ML IV ONE (10:36)
[2017-11-28 11:37] VITALS: BP 148/70
[2017-11-28 12:06] VITALS: PULSE 72
== END 2017-11-28 12:19 | disposition home or self-care (01) ==
LOC: OR 06:49
PROVIDERS: ATTEND Surgery
DX: K81.1 Chronic cholecystitis (principal); K82.1 Hydrops of gallbladder; K82.8 Other specified diseases of gallbladder; J44.9 Chronic obstructive pulmonary disease, unspecified; K21.9 Gastro-esophageal reflux disease without esophagitis; I10 Essential (primary) hypertension; B19.20 Unspecified viral hepatitis C without hepatic coma; G25.81 Restless legs syndrome; D64.9 Anemia, unspecified; G47.33 Obstructive sleep apnea (adult) (pediatric); I25.119 Atherosclerotic heart disease of native coronary artery with unspecified angina pectoris; I25.2 Old myocardial infarction; F17.200 Nicotine dependence, unspecified, uncomplicated; Z86.718 Personal history of other venous thrombosis and embolism; Z99.89 Dependence on other enabling machines and devices; Z99.81 Dependence on supplemental oxygen; Z95.5 Presence of coronary angioplasty implant and graft; Z79.82 Long term (current) use of aspirin; Z79.51 Long term (current) use of inhaled steroids; Z79.899 Other long term (current) drug therapy; Z88.6 Allergy status to analgesic agent; Z88.1 Allergy status to other antibiotic agents; Z91.030 Bee allergy status; Z91.041 Radiographic dye allergy status; Z91.040 Latex allergy status; Z88.5 Allergy status to narcotic agent; Z88.0 Allergy status to penicillin; Z88.8 Allergy status to other drugs, medicaments and biological substances; Z91.018 Allergy to other foods; Z91.048 Other nonmedicinal substance allergy status; Z91.09 Other allergy status, other than to drugs and biological substances; Z88.2 Allergy status to sulfonamides
CPT/HCPCS: 88304; 47562; J2250; J0360; J1644; J1100; J2710; J2405; J2001; J3010; J0330; J2704; J0690

== ENCOUNTER 2017-12-12 08:03 | Inpatient (IN) | payer MEDICARE ==
[2017-12-12] MEDS ORDERED: SODIUM CHLORIDE 0.9% 1,000 ML IV STA ×2 (08:27)
--- NOTE | 2017-12-12 08:31 | ED ---
General Adult HPI - General Chief complaint: GI Bleed Stated complaint: Vomiting Time Seen by Provider: 12/12/17 08:05 Source: patient, EMS, RN notes reviewed, old records reviewed Mode of arrival: EMS Limitations: no limitations - History of Present Illness Initial comments: Patient's a 67-year-old female chief complaint of nausea vomiting and diarrhea for the past 2 days. Patient states that she had a history of gallbladder removal approximately 2 weeks ago. Patient states that she reports her Digitek to be doing well. She does complain of some left lower quadrant abdominal pain associated with this. She did have some bloody stools. She's been on no recent antibiotics. Denies any fever or chills with this. She does have history of COPD. Patient states that she has had a few episodes of dry heaving and vomiting. Numerous times of diarrhea. - Related Data Home Medications Medication Instructions Recorded Confirmed Atenolol [Tenormin] 12.5 mg PO HS 12/27/13 12/12/17 Sucralfate [Carafate] 1 gm PO ACHS 12/27/13 12/12/17 Pramipexole [Mirapex] 0.125 mg PO HS 09/12/14 12/12/17 Tiotropium 18 Mcg/Puff [Spiriva] 1 cap INHALATION RT-HS 09/12/14 12/12/17 Topiramate [Topamax] 50 mg PO BID 05/03/15 12/12/17 DULoxetine HCL [Cymbalta] 30 mg PO DAILY 07/18/17 12/12/17 DULoxetine HCL [Cymbalta] 60 mg PO HS 07/18/17 12/12/17 traZODone HCL [Desyrel] 50 mg PO BID 09/09/17 12/12/17 Albuterol Nebulized [Ventolin 2.5 mg INHALATION RT-QID PRN 10/11/17 12/12/17 Nebulized] Meclizine [Antivert] 12.5 mg PO Q8H PRN 10/11/17 12/12/17 cloNIDine HCL [Catapres] 0.1 mg PO Q8H PRN 10/11/17 12/12/17 ALPRAZolam [Xanax] 1 mg PO TID PRN 12/12/17 12/12/17 Butalb/APAP/Caff 50-325-40Mg 1 tab PO Q4H PRN 12/12/17 12/12/17 [Fioricet 50-325-40] Calcium Carbonate [Calcium] 600 mg PO BID 12/12/17 12/12/17 Cholecalciferol [Vitamin D3] 1,000 unit PO DAILY 12/12/17 12/12/17 Dexlansoprazole [Dexilant] 30 mg PO DAILY 12/12/17 12/12/17 Fexofenadine HCl 30 mg PO Q12H 12/12/17 12/12/17 Nitroglycerin Sl Tabs [Nitrostat] 0.4 mg SUBLINGUAL Q5M PRN 12/12/17 12/12/17 Oxybutynin Chloride [Ditropan] 5 mg PO BID 12/12/17 12/12/17 Polyethylene Glycol 3350 [Miralax] 17 gm PO DAILY 12/12/17 12/12/17 guaiFENesin [Mucinex] 1,200 mg PO Q12H 12/12/17 12/12/17 Previous Rx's Medication Instructions Recorded Melatonin 5 mg PO HS #30 tablet 02/16/17 Aspirin 81 mg PO DAILY chew 09/02/17 Pravastatin Sodium [Pravachol] 80 mg PO HS #0 tab 09/02/17 Allergies Allergy/AdvReac Type Severity Reaction Status Date / Time naproxen sodium [From Aleve] Allergy Severe Anaphylaxis Verified 12/12/17 09:17 adhesive Allergy Rash/Hives Verified 12/12/17 09:17 cinnamon [Cinnamon] Allergy Dyspnea Verified 12/12/17 09:17 clindamycin Allergy Anaphylaxis Verified 12/12/17 09:17 codeine Allergy Nausea & Verified 12/12/17 09:17 Vomiting gentamicin [Gentamicin] Allergy SWELLING Verified 12/12/17 09:17 OF FACE W/ EYE DROPS paola Allergy Dyspnea Verified 12/12/17 09:17 Iodinated Contrast- Oral and Allergy Dyspnea Verified 12/12/17 09:17 IV Dye latex Allergy Rash/Hives Verified 12/12/17 09:17 levothyroxine sodium Allergy Unknown Verified 12/12/17 09:17 [From Synthroid] losartan Allergy Unknown Verified 12/12/17 09:17 montelukast sodium Allergy Wheezing Verified 12/12/17 09:17 [From Singulair] pantoprazole sodium Allergy Abdominal Verified 12/12/17 09:17 [From Protonix] Pain Penicillins Allergy Rash/Hives Verified 12/12/17 09:17 red dye Allergy Abdominal Verified 12/12/17 09:17 Pain Sulfa (Sulfonamide Allergy Swelling Verified 12/12/17 09:17 Antibiotics) IN MOUTH sulfamethoxazole Allergy swelling Verified 12/12/17 09:17 [From Bactrim] tongue sulfanilamide Allergy Unknown Verified 12/12/17 09:17 trimethoprim [From Bactrim] Allergy Swelling Verified 12/12/17 09:17 venom-honey bee Allergy Dyspnea Verified 12/12/17 09:17 [bee venom (honey bee)] BANDAIDS Allergy Rash/Hives Uncoded 11/28/17 07:28 Dye for gallbladder scan. Allergy Anaphylaxis Uncoded 11/28/17 07:28 tomatoes AdvReac Abdominal Uncoded 11/28/17 07:28 Pain Review of Systems ROS Statement: Those systems with pertinent positive or pertinent negative responses have been documented in the HPI. ROS Other: All systems not noted in ROS Statement are negative. 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 DVT RT LEG, HEP C, BACK PROB, DDD., RLS. amenia-iron infusons x2. Uses oxygen @ 2 L per nc. Has a visiting nurse come to the house 1-2 times per week. Patient states they are watching my AAA for now. Last Myocardial Infarction Date:: 06/2011 History of Any Multi-Drug Resistant Organisms: None Reported Past Surgical History: Bladder Surgery, Cholecystectomy, Heart Catheterization With Stent, Hysterectomy, Orthopedic Surgery Additional Past Surgical History / Comment(s): HEART STENT 2010. AAA STENT 2005. VARICOSE VEIN STRIPPING R leg. EXP LAP. LIVER/BX, HAD RT FOOT SURGERY D/ T SALMONELLA INFECTION. R SHOULDER SCOPE. COLONOSCOPY-NORMAL. BLADDER SUSPENSIONS. Past Anesthesia/Blood Transfusion Reactions: No Reported Reaction Date of Last Stent Placement:: 2010 Past Psychological History: Anxiety, Depression, Panic Disorder Smoking Status: Former smoker Past Alcohol Use History: None Reported Past Drug Use History: None Reported - Past Family History Brother(s) Family Medical History: Coronary Artery Disease (CAD), Myocardial Infarction (MT ) Father Additional Family Medical History / Comment(s): FROM CIRRHOSIS OF THE LIVER Mother Family Medical History: COPD Additional Family Medical History / Comment(s): FROM AAA, HAD HX of exposure to TB. General Exam - General Exam Comments Initial Comments: 67-year-old female. Patient is a very thin and frail female. Limitations: no limitations General appearance: alert, in no apparent distress Head exam: Present: atraumatic, normocephalic, normal inspection Eye exam: Present: normal appearance, PERRL, EOMI. Absent: scleral icterus, conjunctival injection, periorbital swelling ENT exam: Present: normal exam, mucous membranes moist Neck exam: Present: normal inspection. Absent: tenderness, meningismus, lymphadenopathy Respiratory exam: Present: normal lung sounds bilaterally. Absent: respiratory distress, wheezes, rales, rhonchi, stridor Cardiovascular Exam: Present: regular rate, normal rhythm, normal heart sounds. Absent: systolic murmur, diastolic murmur, rubs, gallop, clicks GI/Abdominal exam: Present: soft, tenderness (minimal LLQ tenderness. ), normal bowel sounds. Absent: distended, guarding, rebound, rigid Extremities exam: Present: normal inspection, full ROM, normal capillary refill. Absent: tenderness, pedal edema, joint swelling, calf tenderness Back exam: Present: normal inspection Neurological exam: Present: alert, oriented X3, CN II-XII intact Psychiatric exam: Present: normal affect, normal mood Skin exam: Present: warm, dry, intact, normal color. Absent: rash Course Vital Signs 12/12/17 12/12/17 08:13 09:32 Temperature 97.0 F L Pulse Rate 82 77 Respiratory 16 16 Rate Blood Pressure 187/77 177/74 O2 Sat by Pulse 100 100 Oximetry Medical Decision Making - Medical Decision Making 67-year-old female very thin presents minutes spent with episodes of bloody diarrhea. She's had no stools in the emergency room. Few episodes of vomiting. She is given IV fluids labwork obtained. Just some minor abdominal pain but no tenderness. Patient was given IV fluids and her labs showed no significant abnormalities have elevated troponin and CK-MB. EKG shows no evidence of acute ST elevation or changes. Could be reactionary due to dehydration. Patient will be admitted this time for rehydration. We'll culture her stool studies. Her occult was negative on exam. - Lab Data Result diagrams: 12/12/17 08:09 12/12/17 08:09 Lab Results 12/12/17 12/12/17 12/12/17 Range/Units 08:09 08:09 08:09 WBC 10.9 H (3.8-10.6) k/uL RBC 4.20 (3.80-5.40) m/uL Hgb 12.7 (11.4-16.0) gm/dL Hct 39.5 (34.0-46.0) % MCV 94.2 (80.0-100.0) fL MCH 30.3 (25.0-35.0) pg MCHC 32.2 (31.0-37.0) g/dL RDW 14.0 (11.5-15.5) % Plt Count 191 D (150-450) k/uL Neutrophils % 70 % Lymphocytes % 20 % Monocytes % 5 % Eosinophils % 4 % Basophils % 0 % Neutrophils # 7.6 (1.3-7.7) k/uL Lymphocytes # 2.2 (1.0-4.8) k/uL Monocytes # 0.5 (0-1.0) k/uL Eosinophils # 0.4 (0-0.7) k/uL Basophils # 0.0 (0-0.2) k/uL PT (9.0-12.0) sec INR (<1.2) APTT (22.0-30.0) sec Sodium 145 (137-145) mmol/L Potassium 4.2 (3.5-5.1) mmol/L Chloride 107 (98-107) mmol/L Carbon Dioxide 20 L (22-30) mmol/L Anion Gap 18 mmol/L BUN 21 H (7-17) mg/dL Creatinine 1.20 H (0.52-1.04) mg/dL Est GFR (CKD-EPI)AfAm 53 (>60 ml/min/1.73 sqM) Est GFR (CKD-EPI)NonAf 46 (>60 ml/min/1.73 sqM) Glucose 99 (74-99) mg/dL Plasma Lactic Acid Aquilino (0.7-2.0) mmol/L Calcium 10.1 (8.4-10.2) mg/dL Magnesium 1.8 (1.6-2.3) mg/dL Total Bilirubin 0.6 (0.2-1.3) mg/dL AST 29 (14-36) U/L ALT 11 (9-52) U/L Alkaline Phosphatase 67 (38-126) U/L Total Creatine Kinase 47 (30-135) U/L CK-MB (CK-2) 3.8 H* (0.0-2.4) ng/mL CK-MB (CK-2) Rel Index 8.1 Troponin I 0.065 H* (0.000-0.034) ng/mL Total Protein 7.1 (6.3-8.2) g/dL Albumin 4.4 (3.5-5.0) g/dL Lipase 42 (23-300) U/L Stool Occult Blood (Negative) Blood Type Blood Type Recheck Antibody Screen Spec Expiration Date 12/12/17 12/12/17 12/12/17 Range/Units 08:09 08:09 08:09 WBC (3.8-10.6) k/uL RBC (3.80-5.40) m/uL Hgb (11.4-16.0) gm/dL Hct (34.0-46.0) % MCV (80.0-100.0) fL MCH (25.0-35.0) pg MCHC (31.0-37.0) g/dL RDW (11.5-15.5) % Plt Count (150-450) k/uL Neutrophils % % Lymphocytes % % Monocytes % % Eosinophils % % Basophils % % Neutrophils # (1.3-7.7) k/uL Lymphocytes # (1.0-4.8) k/uL Monocytes # (0-1.0) k/uL Eosinophils # (0-0.7) k/uL Basophils # (0-0.2) k/uL PT 10.4 (9.0-12.0) sec INR 1.1 (<1.2) APTT 22.9 (22.0-30.0) sec Sodium (137-145) mmol/L Potassium (3.5-5.1) mmol/L Chloride (98-107) mmol/L Carbon Dioxide (22-30) mmol/L Anion Gap mmol/L BUN (7-17) mg/dL Creatinine (0.52-1.04) mg/dL Est GFR (CKD-EPI)AfAm (>60 ml/min/1.73 sqM) Est GFR (CKD-EPI)NonAf (>60 ml/min/1.73 sqM) Glucose (74-99) mg/dL Plasma Lactic Acid Aquilino 1.2 (0.7-2.0) mmol/L Calcium (8.4-10.2) mg/dL Magnesium (1.6-2.3) mg/dL Total Bilirubin (0.2-1.3) mg/dL AST (14-36) U/L ALT (9-52) U/L Alkaline Phosphatase (38-126) U/L Total Creatine Kinase (30-135) U/L CK-MB (CK-2) (0.0-2.4) ng/mL CK-MB (CK-2) Rel Index Troponin I (0.000-0.034) ng/mL Total Protein (6.3-8.2) g/dL Albumin (3.5-5.0) g/dL Lipase (23-300) U/L Stool Occult Blood (Negative) Blood Type A Positive Blood Type Recheck No Antibody Screen NEGATIVE Spec Expiration Date 12/15/2017230812/12/17 Range/Units 09:20 WBC (3.8-10.6) k/uL RBC (3.80-5.40) m/uL Hgb (11.4-16.0) gm/dL Hct (34.0-46.0) % MCV (80.0-100.0) fL MCH (25.0-35.0) pg MCHC (31.0-37.0) g/dL RDW (11.5-15.5) % Plt Count (150-450) k/uL Neutrophils % % Lymphocytes % % Monocytes % % Eosinophils % % Basophils % % Neutrophils # (1.3-7.7) k/uL Lymphocytes # (1.0-4.8) k/uL Monocytes # (0-1.0) k/uL Eosinophils # (0-0.7) k/uL Basophils # (0-0.2) k/uL PT (9.0-12.0) sec INR (<1.2) APTT (22.0-30.0) sec Sodium (137-145) mmol/L Potassium (3.5-5.1) mmol/L Chloride (98-107) mmol/L Carbon Dioxide (22-30) mmol/L Anion Gap mmol/L BUN (7-17) mg/dL Creatinine (0.52-1.04) mg/dL Est GFR (CKD-EPI)AfAm (>60 ml/min/1.73 sqM) Est GFR (CKD-EPI)NonAf (>60 ml/min/1.73 sqM) Glucose (74-99) mg/dL Plasma Lactic Acid Aquilino (0.7-2.0) mmol/L Calcium (8.4-10.2) mg/dL Magnesium (1.6-2.3) mg/dL Total Bilirubin (0.2-1.3) mg/dL AST (14-36) U/L ALT (9-52) U/L Alkaline Phosphatase (38-126) U/L Total Creatine Kinase (30-135) U/L CK-MB (CK-2) (0.0-2.4) ng/mL CK-MB (CK-2) Rel Index Troponin I (0.000-0.034) ng/mL Total Protein (6.3-8.2) g/dL Albumin (3.5-5.0) g/dL Lipase (23-300) U/L Stool Occult Blood Negative (Negative) Blood Type Blood Type Recheck Antibody Screen Spec Expiration Date 12/12/17 09:23 EKG shows normal sinus rhythm with anterior fascicular block. Prolonged QT. Abnormal EKG. Ventricular rate of 72 bpm.. 62 ms. QRS duration 86 ms. QT QTc is 452/4 and 94 ms. No evidence of ST elevation or T-wave inversion. Notes of atrial or ventricular arrhythmias. - Radiology Data Radiology results: report reviewed Chest x-ray shows chronic emphysema changes without acute pulmonary processes. No significant change from prior. Overall instructed bowel gas pattern noted. Disposition Clinical Impression: Elevated troponin, Weakness, Hypertension, Diarrhea, Low BMI Disposition: ADMITTED IP TO THIS HOSP Condition: Stable Is patient prescribed a controlled substance at d/c from ED?: No If prescribed controlled substance>3 days was MAPS reviewed?: No When asked, does pt state using other controlled substances?: No Referrals: Jenaro Colbert DO [Primary Care Provider] - 1-2 days Time of Disposition: 10:24
[2017-12-12 08:48] LABS: Basophils % (A) 0 %; Eosinophils # (A) 0.4 k/uL (0-0.7); Eosinophils % (A) 4 %; HCT 39.5 % (34.0-46.0); HGB 12.7 gm/dL (11.4-16.0); INR 1.1 (<1.2); Lymphocytes # (A) 2.2 k/uL (1.0-4.8); Lymphocytes % (A) 20 %; MCH 30.3 pg (25.0-35.0); MCHC 32.2 g/dL (31.0-37.0); MCV 94.2 fL (80.0-100.0); Mean Platelet Volume 8.8; Monocytes # (A) 0.5 k/uL (0-1.0); Monocytes % (A) 5 %; Neutrophils # (A) 7.6 k/uL (1.3-7.7); Neutrophils % (A) 70 %; Partial Thromboplastin Time 22.9 sec (22.0-30.0); Prothrombin Time 10.4 sec (9.0-12.0); WBC 10.9 k/uL (3.8-10.6)
[2017-12-12 08:50] LABS: Albumin 4.4 g/dL (3.5-5.0); Calcium 10.1 mg/dL (8.4-10.2); Magnesium 1.8 mg/dL (1.6-2.3); Potassium 4.2 mmol/L (3.5-5.1); Total Bilirubin 0.6 mg/dL (0.2-1.3); Total Protein 7.1 g/dL (6.3-8.2)
[2017-12-12 09:01] LABS: Platelet Count 191 k/uL (150-450)
--- NOTE | 2017-12-12 09:05 | XR ---
EXAMINATION TYPE: XR chest 2V DATE OF EXAM: 12/12/2017 COMPARISON: Chest x-ray October 11, 2017 HISTORY: Recent cholecystectomy 2 weeks ago with history of COPD and asthma presents with chest pain. TECHNIQUE: Frontal and lateral views of the chest are obtained. FINDINGS: Background Chronic emphysematous change is redemonstrated There is no focal air space opac ity, pleural effusion, or pneumothorax seen. The cardiac silhouette size is within normal limits wit h atherosclerotic thoracic aorta. Anterior fusion plate lower cervical spine as partially imaged. Oss eous structures are demineralized. IMPRESSION: Chronic emphysematous change without acute pulmonary process. No significant change from prior.
--- NOTE | 2017-12-12 09:06 | XR ---
EXAMINATION TYPE: XR KUB DATE OF EXAM: 12/12/2017 COMPARISON: 10/30/2017 HISTORY: Pain TECHNIQUE: Single supine KUB image of the abdomen is obtained FINDINGS: Small bowel demonstrates no evidence for dilatation or air fluid levels. Gas and fecal material is seen in non-distended colon. No convincing evidence for pneumoperitoneum. Note is made of aortic stent graft unchanged in overall appearance from prior examination. No unusual calcifications. The lung bases are clear. The osseous structures are intact. IMPRESSION: 1. Overall nonobstructive bowel gas pattern.
[2017-12-12 09:24] LABS: Creatine Kinase MB 3.8 ng/mL (0.0-2.4); Troponin I 0.065 ng/mL (0.000-0.034)
[2017-12-12] MEDS ORDERED: IBUPROFEN 400 MG TAB PO PRN (10:25)
[2017-12-12] MEDS ORDERED: ONDANSETRON 4 MG/2 ML VIAL IVP PRN (10:25)
[2017-12-12] MEDS ORDERED: NALOXONE 0.4 MG/ML 1 ML VIAL IV PRN (10:25)
[2017-12-12] MEDS ORDERED: Acetaminophen-Codeine 300-30mg TAB PO PRN (10:25)
[2017-12-12] MEDS ORDERED: cloNIDine HCL 0.1 MG TAB PO PRN (11:30)
[2017-12-12] MEDS ORDERED: NITROGLYCERIN SL TABS 0.4 MG TAB SUBLINGUAL PRN (11:30)
[2017-12-12] MEDS ORDERED: ALPRAZolam 0.5 MG TAB PO PRN (11:30)
[2017-12-12] MEDS ORDERED: BUTALB/APAP/CAFF 50-325-40MG TAB PO PRN (11:30)
[2017-12-12] MEDS: SODIUM CHLORIDE 0.9% 1,000 ML IV SCH ×3 (11:40→20:35)
[2017-12-12] MEDS ORDERED: HYDROcodone/APAP 5-325MG 1 EACH TAB PO STA (12:39)
--- NOTE | 2017-12-12 13:00 | P.CRDCN ---
History of Present Illness Consult date: 12/12/17 Requesting physician: Riri Bailey Reason for Consult (text): Abnormal troponin Chief complaint: Vomiting and diarrhea History of present illness: This is a 67-year-old female who follows with Dr. VC Garcia in the office. She has past medical history significant for hypertension, hyperlipidemia, DVT, GERD, COPD, coronary artery disease, patient underwent a cardiac catheterization in July 2017 which revealed mid RCA stent which was patent, circumflex 30% disease, proximal LAD 30-40% and 30% in its midportion. This history of aortic aneurysm with stent graft in 2005 and anemia. Patient presents to the hospital on this occasion with 2-3 day duration of vomiting and diarrhea, she also apparently has been having significant blood in her stools. She denies having any chest discomfort, no difficulty in breathing, no dizziness or lightheadedness. Complaining about a considerable amount of back discomfort. Troponins were drawn in the emergency room which came back to be abnormal, and for this reason a cardiology consultation was requested. EKG performed in the emergency room shows a normal sinus rhythm with no acute changes. Chest x-ray shows chronic emphysematous change without acute pulmonary process. KUB was also performed which revealed overall nonobstructive bowel gas pattern. Blood pressure on arrival here 187/76, heart rate in the 80s, temperature 90.7, 100% on 3 L of oxygen. White blood cell count 10.9, hemoglobin 12.7, platelet count 191. Sodium 145, potassium 4.2, BUN 21, creatinine 1.2. Troponin 0.065, stool for Occult call blood negative. At the time of my examination, patient denies any chest discomfort, no abdominal discomfort, no dizziness or lightheadedness or shortness of breath. Patient is complaining of lower back discomfort. Past Medical History Past Medical History: Asthma, Coronary Artery Disease (CAD), Chest Pain / Angina , COPD, Deep Vein Thrombosis (DVT), GERD/Reflux, GI Bleed, Hypertension, Liver Disease, Myocardial Infarction (NE), Pneumonia, Respiratory Disorder, Sleep Apnea/CPAP/BIPAP, Vascular Disorder Additional Past Medical History / Comment(s): Aortic aneurysm with stent-being monitored, Takosubu syndrome in 2016, R groin dissection/cardiac cath, recent bacteremia-blood cultures positive for veridans strep-completed antibiotics, bronchitis, home O2 at 3L/NC most of the time, LG without device-stable, DVT R leg, lower GI bleed, hepatitis C with Harvoni treatment, anemia with iron infusions x2, bilateral femoral head avascular necrosis, RLS, migraines, insomnia, constipation, overactive bladder, post menopausal bleed. Last Myocardial Infarction Date:: 07/2017 History of Any Multi-Drug Resistant Organisms: None Reported Past Surgical History: Bladder Surgery, Cholecystectomy, Heart Catheterization With Stent, Hysterectomy, Orthopedic Surgery Additional Past Surgical History / Comment(s): 11/28/17 lap albert, PCI with stent 2010, cardiac cath 07/2017-treat medically, common iliac artery stent 2005 , exploratory lap, liver bx, R foot surgery d/t infection, R shoulder arthroscopic surgery, CAN, EGD, colonoscopy years ago, R leg varicose vein surgery, bladder suspension Past Anesthesia/Blood Transfusion Reactions: No Reported Reaction Date of Last Stent Placement:: 2010 Smoking Status: Current every day smoker - Past Family History Brother(s) Family Medical History: Coronary Artery Disease (CAD), Myocardial Infarction (NE ) Father Additional Family Medical History / Comment(s): FROM CIRRHOSIS OF THE LIVER Mother Family Medical History: COPD Additional Family Medical History / Comment(s): FROM AAA, HAD HX of TB. Medications and Allergies Home Medications Medication Instructions Recorded Confirmed Type Atenolol [Tenormin] 12.5 mg PO HS 12/27/13 12/12/17 History Sucralfate [Carafate] 1 gm PO ACHS 12/27/13 12/12/17 History Pramipexole [Mirapex] 0.125 mg PO HS 09/12/14 12/12/17 History Tiotropium 18 Mcg/Puff [Spiriva] 1 cap INHALATION RT-HS 09/12/14 12/12/17 History Topiramate [Topamax] 50 mg PO BID 05/03/15 12/12/17 History Melatonin 5 mg PO HS #30 tablet 02/16/17 12/12/17 Rx DULoxetine HCL [Cymbalta] 30 mg PO DAILY 07/18/17 12/12/17 History DULoxetine HCL [Cymbalta] 60 mg PO HS 07/18/17 12/12/17 History Aspirin 81 mg PO DAILY chew 09/02/17 12/12/17 Rx Pravastatin Sodium [Pravachol] 80 mg PO HS #0 tab 09/02/17 12/12/17 Rx traZODone HCL [Desyrel] 50 mg PO BID 09/09/17 12/12/17 History Albuterol Nebulized [Ventolin 2.5 mg INHALATION RT-QID PRN 10/11/17 12/12/17 History Nebulized] Meclizine [Antivert] 12.5 mg PO Q8H PRN 10/11/17 12/12/17 History cloNIDine HCL [Catapres] 0.1 mg PO Q8H PRN 10/11/17 12/12/17 History ALPRAZolam [Xanax] 1 mg PO TID PRN 12/12/17 12/12/17 History Butalb/APAP/Caff 50-325-40Mg 1 tab PO Q4H PRN 12/12/17 12/12/17 History [Fioricet 50-325-40] Calcium Carbonate [Calcium] 600 mg PO BID 12/12/17 12/12/17 History Cholecalciferol [Vitamin D3] 1,000 unit PO DAILY 12/12/17 12/12/17 History Dexlansoprazole [Dexilant] 30 mg PO DAILY 12/12/17 12/12/17 History Fexofenadine HCl 30 mg PO Q12H 12/12/17 12/12/17 History Nitroglycerin Sl Tabs [Nitrostat] 0.4 mg SUBLINGUAL Q5M PRN 12/12/17 12/12/17 History Oxybutynin Chloride [Ditropan] 5 mg PO BID 12/12/17 12/12/17 History Polyethylene Glycol 3350 [Miralax] 17 gm PO DAILY 12/12/17 12/12/17 History guaiFENesin [Mucinex] 1,200 mg PO Q12H 12/12/17 12/12/17 History Allergies Allergy/AdvReac Type Severity Reaction Status Date / Time naproxen sodium [From Aleve] Allergy Severe Anaphylaxis Verified 12/12/17 09:17 adhesive Allergy Rash/Hives Verified 12/12/17 09:17 cinnamon [Cinnamon] Allergy Dyspnea Verified 12/12/17 09:17 clindamycin Allergy Anaphylaxis Verified 12/12/17 09:17 codeine Allergy Nausea & Verified 12/12/17 09:17 Vomiting gentamicin [Gentamicin] Allergy SWELLING Verified 12/12/17 09:17 OF FACE W/ EYE DROPS paola Allergy Dyspnea Verified 12/12/17 09:17 Iodinated Contrast- Oral and Allergy Dyspnea Verified 12/12/17 09:17 IV Dye latex Allergy Rash/Hives Verified 12/12/17 09:17 levothyroxine sodium Allergy Unknown Verified 12/12/17 09:17 [From Synthroid] losartan Allergy Unknown Verified 12/12/17 09:17 montelukast sodium Allergy Wheezing Verified 12/12/17 09:17 [From Singulair] pantoprazole sodium Allergy Abdominal Verified 12/12/17 09:17 [From Protonix] Pain Penicillins Allergy Rash/Hives Verified 12/12/17 09:17 red dye Allergy Abdominal Verified 12/12/17 09:17 Pain Sulfa (Sulfonamide Allergy Swelling Verified 12/12/17 09:17 Antibiotics) IN MOUTH sulfamethoxazole Allergy swelling Verified 12/12/17 09:17 [From Bactrim] tongue sulfanilamide Allergy Unknown Verified 12/12/17 09:17 trimethoprim [From Bactrim] Allergy Swelling Verified 12/12/17 09:17 venom-honey bee Allergy Dyspnea Verified 12/12/17 09:17 [bee venom (honey bee)] BANDAIDS Allergy Rash/Hives Uncoded 11/28/17 07:28 Dye for gallbladder scan. Allergy Anaphylaxis Uncoded 11/28/17 07:28 tomatoes AdvReac Abdominal Uncoded 11/28/17 07:28 Pain Physical Exam Vitals: Vital Signs Temp Pulse Resp BP Pulse Ox 12/12/17 09:32 77 16 177/74 100 12/12/17 08:13 97.0 F L 82 16 187/77 100 Intake and Output 12/11/17 12/12/17 12/12/17 22:59 06:59 14:59 Other: Weight 39.463 kg PHYSICAL EXAMINATION: HEENT: Head is atraumatic, normocephalic. Pupils equal, round. Neck is supple. There is no elevated jugular venous pressure. HEART EXAMINATION: Heart S1, S2 normal. No murmur or gallop heard. CHEST EXAMINATION: Lungs are clear to auscultation and precussion. No chest wall tenderness is noted on palpation or with deep breathing. ABDOMEN: Soft, nontender. Bowel sounds are heard. No organomegaly noted. EXTREMITIES: 2+ peripheral pulses with no evidence of peripheral edema and no calf tenderness noted. NEUROLOGIC patient is awake, alert and oriented -3. . Results 12/12/17 08:09 12/12/17 08:09 Cardiac Enzymes 12/12/17 12/12/17 Range/Units 08:09 08:09 AST 29 (14-36) U/L CK-MB (CK-2) 3.8 H* (0.0-2.4) ng/mL Troponin I 0.065 H* (0.000-0.034) ng/mL Coagulation 12/12/17 Range/Units 08:09 PT 10.4 (9.0-12.0) sec APTT 22.9 (22.0-30.0) sec CBC 12/12/17 Range/Units 08:09 WBC 10.9 H (3.8-10.6) k/uL RBC 4.20 (3.80-5.40) m/uL Hgb 12.7 (11.4-16.0) gm/dL Hct 39.5 (34.0-46.0) % Plt Count 191 D (150-450) k/uL Comprehensive Metabolic Panel 12/12/17 Range/Units 08:09 Sodium 145 (137-145) mmol/L Potassium 4.2 (3.5-5.1) mmol/L Chloride 107 (98-107) mmol/L Carbon Dioxide 20 L (22-30) mmol/L BUN 21 H (7-17) mg/dL Creatinine 1.20 H (0.52-1.04) mg/dL Glucose 99 (74-99) mg/dL Calcium 10.1 (8.4-10.2) mg/dL AST 29 (14-36) U/L ALT 11 (9-52) U/L Alkaline Phosphatase 67 (38-126) U/L Total Protein 7.1 (6.3-8.2) g/dL Albumin 4.4 (3.5-5.0) g/dL Current Medications Generic Name Dose Route Start Last Admin Trade Name Freq PRN Reason Stop Dose Admin Acetaminophen 650 mg 12/12/17 10:25 Tylenol Tab PO Q6HR PRN Mild Pain or Fever > 100.5 Acetaminophen/Butalbital/Caffeine 1 each 12/12/17 11:30 Fioricet 50-325-40 PO Q4H PRN Headache Acetaminophen/Codeine Phosphate 1 each 12/12/17 10:25 Tylenol #3 PO Q4HR PRN Moderate Pain Albuterol Sulfate 2.5 mg 12/12/17 11:30 Ventolin Nebulized INHALATION RT-QID PRN Shortness Of Breath Alprazolam 0.5 mg 12/12/17 11:30 Xanax PO TID PRN Anxiety Atenolol 12.5 mg 12/12/17 21:00 Tenormin PO HS [facility] Cholestyramine Resin 4 gm 12/12/17 18:00 Questran PO BID@1000,1800 [facility] Clonidine 0.1 mg 12/12/17 11:30 Catapres PO Q8H PRN BP > 160 Duloxetine HCl 30 mg 12/13/17 09:00 Cymbalta PO DAILY [facility] Duloxetine HCl 60 mg 12/12/17 21:00 Cymbalta PO HS [facility] Famotidine 20 mg 12/12/17 21:00 Pepcid IV Q12HR [facility] Sodium Chloride 1,000 mls @ 100 mls/hr 12/12/17 08:27 12/12/17 08:35 Saline 0.9% IV 12/12/17 18:26 100 mls/hr .Q10H STA Administration Sodium Chloride 1,000 mls @ 120 mls/hr 12/12/17 10:30 12/12/17 11:40 Saline 0.9% IV 120 mls/hr .Q8H20M [facility] Administration Ipratropium [place] 0.5 mg 12/12/17 20:00 Atrovent Nebulized INHALATION RT-QID [facility] Loratadine 10 mg 12/12/17 11:45 Claritin PO DAILY [facility] Melatonin 5 mg 12/12/17 21:00 Melatonin PO HS [facility] Morphine Sulfate 12 mg 12/12/17 10:25 Morphine Oral Aviva 2mg/Ml PO Q4HR PRN Severe Pain Naloxone HCl 0.2 mg 12/12/17 10:25 Narcan IV Q2M PRN Opioid Reversal Nitroglycerin 0.4 mg 12/12/17 11:30 Nitrostat SUBLINGUAL Q5M PRN Chest Pain Dexlansoprazole [ 30 mg 12/13/17 07:30 Dexilant] 30 Mg PO AC-BRKFST [facility] Ondansetron HCl 4 mg 12/12/17 10:25 Zofran IVP Q8HR PRN Nausea And Vomiting Oxybutynin Chloride 5 mg 12/12/17 21:00 Ditropan PO BID [facility] Pramipexole Dihydrochloride 0.125 mg 12/12/17 21:00 Mirapex PO HS [facility] Pravastatin Sodium 80 mg 12/12/17 21:00 Pravachol PO HS [facility] Sucralfate 1 gm 12/12/17 12:30 Carafate PO ACHS [facility] Topiramate 50 mg 12/12/17 21:00 Topamax PO BID [facility] Trazodone HCl 50 mg 12/12/17 21:00 Desyrel PO BID [facility] Intake and Output 12/11/17 12/12/17 12/12/17 22:59 06:59 14:59 Other: Weight 39.463 kg Patient Weight 12/13/17 06:59 Weight 39.463 kg 12/12/17 08:09 12/12/17 08:09 EKG Interpretations (text) EKG shows a normal sinus rhythm with no acute changes. Assessment and Plan Plan: Assessment and plan #1 symptoms of 2-3 duration of vomiting and diarrhea, rule out gastroenteritis. Stool for occult blood negative. #2 abnormal troponin, patient denies having any chest discomfort, EKG shows normal sinus rhythm with no acute changes. Echocardiogram with Doppler study performed in July 2017 revealed a normal left cheek systolic function. Cardiac catheterization performed in July 2017 revealed heavily calcified right and left coronary systems with a patent stent to the RCA, mild disease involving the left circumflex proximal and mid LAD medical therapy advised at that time. #3 known history of coronary artery disease with prior RCA stent #4 hypertension, uncontrolled #5 hyperlipidemia #6 prior DVT #7 history of abdominal aortic aneurysm with stent graft Are 8 anemia requiring blood transfusion #9 GERD #10 COPD #11 nicotine dependence Plan We will repeat an echocardiogram with Doppler study. We will also obtain 2 subsequent troponins. Discontinue atenolol and start the patient on Coreg 5 mg by mouth twice a day for more optimal blood pressure control, we will also start the patient on an LAUREN inhibitor. We will feed the patient. Further recommendations follow. DNP note has been reviewed, I agree with a documented findings and plan of care. Patient was seen and examined.
--- NOTE | 2017-12-12 13:32 | P.PN ---
Progress Note - Text This is an addendum to the dictated cardiology consultation. The patient has a history of mild CAD, recent cholecystectomy, presents with diarrhea and abdominal discomfort. Her troponin was minimally elevated in the emergency room. She underwent cardiac catheterization in July that showed no evidence of high-grade stenosis. She has a history of significant COPD and continues to smoke. She denies any symptoms of chest pain or palpitations. She has no change in her breathing and no peripheral edema. Her lung examination reveals significant decrease in the air exchange, she has a systolic murmur and no peripheral edema. The patient troponin elevation does represent a type II event. We'll continue the same medical therapy and follow her cardiac enzymes. Thank you for this consult we will follow with you.
[2017-12-12] MEDS: LORATADINE 10 MG TAB PO SCH (14:12)
[2017-12-12] MEDS: SUCRALFATE 1 GM TAB PO SCH ×3 (14:12→20:57)
[2017-12-12] MEDS: LISINOPRIL 5 MG TAB PO SCH (14:12)
[2017-12-12] MEDS: MORPHINE ORAL SOLN 10 MG/5 ML CUP PO PRN (14:12)
--- NOTE | 2017-12-12 15:25 | P.HPIM ---
History of Present Illness H&P Date: 12/12/17 This is a 67-year-old female one of Dr. 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 Islas at that time. She presents to the emergency room with recurrent lower pelvic pain, was seen by the past general surgeon Dr. Negron for which an upper endoscopy was performed, however lower endoscopy still needs to be done, patient did not get this test done secondary to an illness. She has multiple imaging done from a facility all of which were reviewed including CAT scans of the abdomen and pelvis, all of which were showing moderate amount of retained stools, avascular necrosis of bilateral femoral heads, infrarenal abdominal aortic aneurysm with aortoiliac endograft and common iliac aneurysm, Her most recent CT was 10/30/2017, shows focal aneurysm at the left common iliac artery stent graft measuring 3.2 cm, aneurysm the landing zone at the right common iliac, 2.6 cm with moderate focal stenosis just beyond, stent graft remains patent morongo sac measures 4.4 cm unchanged, and this was reviewed with the radiologist, there is no and no endo leak noted. Patient has a mildly hydropic gallbladder, without surrounding inflammation, portal venous system is patent, no common bile duct dilatation. HIDA scan of the gallbladder shows hyperkinetic gallbladder 97%, patient underwent cholecystectomy on 11/28. She comes in today with complaints of multiple bouts of nausea, vomiting and diarrhea. She endorses fresh blood per rectum and has been wearing pads as the bleeding is excessive. Patient complains of left lower quadrant abdominal pain along with bloody stools. She denies any recent antibiotic use. She denies any fever or chills. She does have some shortness of breath. Patient endorses she lost 7-8 pounds since last month. Have suggested leukocyte of 10.9, creatinine 1.2 increased from baseline, troponin 0.0 67. Stool occult was ordered which came back negative. Blood pressure 187/77 respiratory rate 12 currently on 3 L of oxygen which is patient's home oxygen requirement, afebrile. Patient is admitted for evaluation of acute gastroenteritis. Cardiology consult for a increase troponin. Troponin 2 ordered. EKG not suggestive of any ST or T-wave changes Review of Systems Constitutional: Denies chills, Denies fever, endorses lethargy,endorses malaise, Denies poor appetite,endorses weakness, endorses weight loss Eyes: denies decreased vision, denies diplopia, denies discharge, denies pain Ears: deny: decreased hearing Ears, nose, mouth and throat: Denies dental pain, Denies headache, Denies nasal discharge, Denies nose pain Cardiovascular: Denies chest pain, Denies decreased exercise tolerance, Denies edema, Denies high blood pressure, Denies irregular heart beat, Denies palpitations, Denies paroxysmal nocturnal dyspnea, Denies rapid heart beat, endorses shortness of breath Respiratory: Denies congestion, Denies cough, Denies cough with sputum, endorses dyspnea, endorses home oxygen, Denies wheezing Gastrointestinal: endorses abdominal pain,endorses change in bowel habits, Denies coffee ground emesis, Denies early satiety, Denies excessive gas, Denies heartburn, Denies hematemesis, endorses hematochezia, Denies loss of appetite, Denies nausea, Denies vomiting Genitourinary: Denies dysuria, Denies flank pain, Denies kidney stones, Denies menorrhagia, Denies urgency, Denies urinary frequency Musculoskeletal: Denies gait dysfunction, Denies limitation of motion, Denies morning stiffness, Denies muscle cramps Integumentary: Denies rash, Denies wounds, Denies brittle nails, Denies change in hair/nails, Denies darkening of skin Neurological: Denies balance difficulties, Denies change in speech, Denies double vision, Denies gait dysfunction, Denies loss of vision, Denies motor disturbance, Denies numbness, Denies paralysis, Denies paresthesias, Denies seizures Psychiatric: Denies anxiety, Denies depression Endocrine: Denies excessive sweating, Denies excessive thirst, Denies high blood sugars, Denies palpitations Hematologic/Lymphatic: Denies easy bruising, Denies lymphadenopathy Past Medical History Past Medical History: Asthma, Coronary Artery Disease (CAD), Chest Pain / Angina , COPD, Deep Vein Thrombosis (DVT), GERD/Reflux, GI Bleed, Hypertension, Liver Disease, Myocardial Infarction (ID), Pneumonia, Respiratory Disorder, Sleep Apnea/CPAP/BIPAP, Vascular Disorder Additional Past Medical History / Comment(s): Aortic aneurysm with stent-being monitored, Takosubu syndrome in 2016, R groin dissection/cardiac cath, recent bacteremia-blood cultures positive for veridans strep-completed antibiotics, bronchitis, home O2 at 3L/NC most of the time, LG without device-stable, DVT R leg, lower GI bleed, hepatitis C with Harvoni treatment, anemia with iron infusions x2, bilateral femoral head avascular necrosis, RLS, migraines, insomnia, constipation, overactive bladder, post menopausal bleed. Last Myocardial Infarction Date:: 07/2017 History of Any Multi-Drug Resistant Organisms: None Reported Past Surgical History: Bladder Surgery, Cholecystectomy, Heart Catheterization With Stent, Hysterectomy, Orthopedic Surgery Additional Past Surgical History / Comment(s): 11/28/17 lap albert, PCI with stent 2010, cardiac cath 07/2017-treat medically, common iliac artery stent 2005 , exploratory lap, liver bx, R foot surgery d/t infection, R shoulder arthroscopic surgery, CAN, EGD, colonoscopy years ago, R leg varicose vein surgery, bladder suspension Past Anesthesia/Blood Transfusion Reactions: No Reported Reaction Date of Last Stent Placement:: 2010 Smoking Status: Current every day smoker - Past Family History Brother(s) Family Medical History: Coronary Artery Disease (CAD), Myocardial Infarction (ID ) Father Additional Family Medical History / Comment(s): FROM CIRRHOSIS OF THE LIVER Mother Family Medical History: COPD Additional Family Medical History / Comment(s): FROM AAA, HAD HX of TB. Medications and Allergies Home Medications Medication Instructions Recorded Confirmed Type Atenolol [Tenormin] 12.5 mg PO HS 12/27/13 12/12/17 History Sucralfate [Carafate] [address] [facility] 12/27/13 12/12/17 History Pramipexole [Mirapex] 0.125 mg PO HS 09/12/14 12/12/17 History Tiotropium 18 Mcg/Puff [Spiriva] 1 cap INHALATION RT-HS 09/12/14 12/12/17 History Topiramate [Topamax] 50 mg PO BID 05/03/15 12/12/17 History Melatonin 5 mg PO HS #30 tablet 02/16/17 12/12/17 Rx DULoxetine HCL [Cymbalta] 30 mg PO DAILY 07/18/17 12/12/17 History DULoxetine HCL [Cymbalta] 60 mg PO HS 07/18/17 12/12/17 History Aspirin 81 mg PO DAILY chew 09/02/17 12/12/17 Rx Pravastatin Sodium [Pravachol] 80 mg PO HS #0 tab 09/02/17 12/12/17 Rx traZODone HCL [Desyrel] 50 mg PO BID 09/09/17 12/12/17 History Albuterol Nebulized [Ventolin 2.5 mg INHALATION RT-QID PRN 10/11/17 12/12/17 History Nebulized] Meclizine [Antivert] 12.5 mg PO Q8H PRN 10/11/17 12/12/17 History cloNIDine HCL [Catapres] 0.1 mg PO Q8H PRN 10/11/17 12/12/17 History ALPRAZolam [Xanax] 1 mg PO TID PRN 12/12/17 12/12/17 History Butalb/APAP/Caff 50-325-40Mg 1 tab PO Q4H PRN 12/12/17 12/12/17 History [Fioricet 50-325-40] Calcium Carbonate [Calcium] 600 mg PO BID 12/12/17 12/12/17 History Cholecalciferol [Vitamin D3] 1,000 unit PO DAILY 12/12/17 12/12/17 History Dexlansoprazole [Dexilant] 60 mg PO DAILY 12/12/17 12/12/17 History Fexofenadine HCl 30 mg PO Q12H 12/12/17 12/12/17 History Nitroglycerin Sl Tabs [Nitrostat] 0.4 mg SUBLINGUAL Q5M PRN 12/12/17 12/12/17 History Oxybutynin Chloride [Ditropan] 5 mg PO BID 12/12/17 12/12/17 History Polyethylene Glycol 3350 [Miralax] 17 gm PO DAILY 12/12/17 12/12/17 History guaiFENesin [Mucinex] 1,200 mg PO Q12H 12/12/17 12/12/17 History Allergies Allergy/AdvReac Type Severity Reaction Status Date / Time naproxen sodium [From Aleve] Allergy Severe Anaphylaxis Verified 12/12/17 09:17 adhesive Allergy Rash/Hives Verified 12/12/17 09:17 cinnamon [Cinnamon] Allergy Dyspnea Verified 12/12/17 09:17 clindamycin Allergy Anaphylaxis Verified 12/12/17 09:17 codeine Allergy Nausea & Verified 12/12/17 09:17 Vomiting gentamicin [Gentamicin] Allergy SWELLING Verified 12/12/17 09:17 OF FACE W/ EYE DROPS paola Allergy Dyspnea Verified 12/12/17 09:17 Iodinated Contrast- Oral and Allergy Dyspnea Verified 12/12/17 09:17 IV Dye latex Allergy Rash/Hives Verified 12/12/17 09:17 levothyroxine sodium Allergy Unknown Verified 12/12/17 09:17 [From Synthroid] losartan Allergy Unknown Verified 12/12/17 09:17 montelukast sodium Allergy Wheezing Verified 12/12/17 09:17 [From Singulair] pantoprazole sodium Allergy Abdominal Verified 12/12/17 09:17 [From Protonix] Pain Penicillins Allergy Rash/Hives Verified 12/12/17 09:17 red dye Allergy Abdominal Verified 12/12/17 09:17 Pain Sulfa (Sulfonamide Allergy Swelling Verified 12/12/17 09:17 Antibiotics) IN MOUTH sulfamethoxazole Allergy swelling Verified 12/12/17 09:17 [From Bactrim] tongue sulfanilamide Allergy Unknown Verified 12/12/17 09:17 trimethoprim [From Bactrim] Allergy Swelling Verified 12/12/17 09:17 venom-honey bee Allergy Dyspnea Verified 12/12/17 09:17 [bee venom (honey bee)] BANDAIDS Allergy Rash/Hives Uncoded 11/28/17 07:28 Dye for gallbladder scan. Allergy Anaphylaxis Uncoded 11/28/17 07:28 tomatoes AdvReac Abdominal Uncoded 11/28/17 07:28 Pain Physical Exam Vitals: Vital Signs Temp Pulse Resp BP Pulse Ox 12/12/17 12:59 98.6 F 80 16 147/67 100 12/12/17 09:32 77 16 177/74 100 12/12/17 08:13 97.0 F L 82 16 187/77 100 Intake and Output 04/26/18 04/27/18 04/27/18 22:59 06:59 14:59 Other: Weight 39.463 kg - Constitutional General appearance: cooperative, in acute distress, frail appearing - EENT Eyes: anicteric sclerae, PERRLA, normal appearance ENT: hearing grossly normal - Neck Neck: no lymphadenopathy, normal ROM, no other, no rigidity, no stridor, no thyromegaly - Respiratory Respiratory: bilateral: CTA, negative: diminished, dullness, rales, rhonchi - Cardiovascular Rhythm: regular Heart sounds: normal: S1, S2 Abnormal Heart Sounds: no systolic murmur, no diastolic murmur, no rub, no S3 Gallop, no S4 Gallop, no click, no other - Gastrointestinal General gastrointestinal: normal bowel sounds, soft, nontender does have a 10 cm sized lump in the left lower quadrant which is pulsatile appears to correlate with patient's aneurysm. - Integumentary Integumentary: no rash - Neurologic Neurologic: CNII-XII intact - Musculoskeletal Musculoskeletal: gait normal, strength equal bilaterally - Psychiatric Psychiatric: A&O x's 3, appropriate affect Results CBC & Chem 7: 12/12/17 08:09 12/12/17 08:09 Labs: Abnormal Lab Results - Last 24 Hours (Table) 12/12/17 12/12/17 12/12/17 Range/Units 08:09 08:09 08:09 WBC 10.9 H (3.8-10.6) k/uL Carbon Dioxide 20 L (22-30) mmol/L BUN 21 H (7-17) mg/dL Creatinine 1.20 H (0.52-1.04) mg/dL CK-MB (CK-2) 3.8 H* (0.0-2.4) ng/mL Troponin I 0.065 H* (0.000-0.034) ng/mL Thrombosis Risk Factor Assmnt - DVT/VTE Prophylaxis DVT/VTE Prophylaxis: Mechanical Prophylaxis ordered - Choose All That Apply Any of the Below Risk Factors Present?: Yes Each Factor Represents 1 point: Abnormal pulmonary function (COPD) Other Risk Factors: Yes Each Risk Factor Represents 2 Points: Age 61-74 years Each Risk Factor Represents 3 Points: History of DVT/PE Other congenital or acquired thrombophilia - If yes, enter type in comment: No Thrombosis Risk Factor Assessment Total Risk Factor Score: 6 Thrombosis Risk Factor Assessment Level: High Risk Assessment and Plan Plan: 1. Intractable nausea/vomiting/diarrhea appears likely secondary to viral gastroenteritis with possibility of a recent cholecystectomy-induced diarrhea. Continue fluids at 75 mL/h. Abdominal examination was benign no concern for acute diverticulitis or concern for infection. Patient does endorse bloody stools but fecal occult is negative. C. diff ordered Previous CT abdomen was positive for constipation. Patient has not underwent colonoscopy in the past. GI consulted and awaiting recommendation 2. Peripheral vascular disease with history of left common iliac artery stent graft with focal aneurysm 3.2 cm severe stenosis beyond aneurysm, right common iliac artery 2.6 cm with modest focal stenosis just beyond. Palpable aneurysm in the left lower quadrant, nontender to palpate. 3. Acute kidney injury likely prerenal from dehydration - continue normal saline at 75 mL per hour 4. Bilateral avascular necrosis bilateral femoral seen by Dr. Whipple orthopedic surgeon no intervention needed 5. History of Viridans strep bacteremia secondary to endovascular infection, endocarditis ruled out September 04 4 weeks IV vancomycin completed. 6. Troponinemia. Repeat troponin pending. Echo ordered. History of recent non-ST elevated myocardial infarction status post heart catheterization finding patent stent in the RCA and heavily calcified right and left coronary systems in July 2017. Atenolol switched to Coreg, aspirin 81 mg every day, pravastatin, 7. Chronic back pain. 8. Chronic anemia of chronic disease. Hemoglobin stable 9. PUD. Continue Carafate no changes 10. Hep C S/P Harvoni therapy. 11. Hyperlipidemia. Pravastatin. Patient was unable to tolerate Lipitor. 12. Abdominal aortic aneurysm S/P endovascular stent. 13. Chronic tobacco use and dependence. Smoking cessation and counseling an increased risk of CAD, CVA, and malignancy. Patient on nicotine patch. 14. Migraine Headache. Continue Topamax 50 mg orally twice every day as well as Fioricet half a pill every 4 hours as needed. 15. Hypertension and hypertensive cardiovascular disease. Atenolol switched to Coreg 3.125 twice a day 16. Restless leg syndrome. Continue Mirapex 0.125 mg orally at bedtime. 17. Obstructive sleep apnea. Stable. 18. Generalized anxiety disorder with panic disorder Depression, recurrent. Continue Cymbalta 30 mg in the morning and 60 mg at bedtime. 19. Overactive bladder. Patient is currently off oxybutynin. 20. Postmenopausal vaginal bleeding. Patient has been encouraged to follow-up with Dr. Lopez as an outpatient. 21. DVT prophylaxis. With SCDs 22. GI prophylaxis. Carafate. 23. Insomnia. Continue melatonin and trazodone. Estimated length of stay is 2 midnights.
[2017-12-12] MEDS: CARVEDILOL 3.125 MG TAB PO SCH (17:52)
[2017-12-12] MEDS: CHOLESTYRAMINE (WITH SUGAR) 4 GM PACKET PO SCH (17:58)
[2017-12-12] MEDS: IPRATROPIUM 0.5 MG/2.5 ML NEBU INHALATION SCH (20:10)
[2017-12-12] MEDS: FAMOTIDINE 20 MG/2 ML VIAL IV SCH (20:54)
[2017-12-12] MEDS: DULoxetine HCL 60 MG CAPSULE.DR PO SCH (20:54)
[2017-12-12] MEDS: OXYBUTYNIN CHLORIDE 5 MG TAB PO SCH (20:56)
[2017-12-12] MEDS: MELATONIN 5 MG TABLET PO SCH (20:56)
[2017-12-12] MEDS: PRAMIPEXOLE 0.125 MG TAB PO SCH (20:56)
[2017-12-12] MEDS: PRAVASTATIN SODIUM 80 MG TAB PO SCH (20:57)
[2017-12-12] MEDS: TOPIRAMATE 25 MG TAB PO SCH (20:57)
[2017-12-12] MEDS: traZODone HCL 50 MG TAB PO SCH (20:58)
[2017-12-12] MEDS ORDERED: ATENOLOL 12.5 MG TAB PO SCH (21:00)
[2017-12-13] MEDS: ACETAMINOPHEN TAB 325 MG TAB PO PRN ×2 (03:30→14:51)
[2017-12-13] MEDS: SODIUM CHLORIDE 0.9% 1,000 ML IV SCH ×5 (03:31→21:21)
[2017-12-13] MEDS: DEXLANSOPRAZOLE 60 MG PO SCH (06:35)
[2017-12-13] MEDS: SUCRALFATE 1 GM TAB PO SCH ×4 (06:35→21:24)
[2017-12-13] MEDS: CARVEDILOL 3.125 MG TAB PO SCH ×2 (06:36→16:53)
[2017-12-13 06:56] LABS: Basophils % (A) 0 %; Eosinophils # (A) 0.5 k/uL (0-0.7); Eosinophils % (A) 7 %; HCT 29.8 % (34.0-46.0); Lymphocytes % (A) 28 %; MCH 30.3 pg (25.0-35.0); MCHC 31.9 g/dL (31.0-37.0); Mean Platelet Volume 7.8; Monocytes # (A) 0.3 k/uL (0-1.0); Monocytes % (A) 5 %; Neutrophils # (A) 4.4 k/uL (1.3-7.7); Neutrophils % (A) 60 %; Platelet Count 147 k/uL (150-450); RBC 3.14 m/uL (3.80-5.40); RDW 13.9 % (11.5-15.5); WBC 7.3 k/uL (3.8-10.6)
[2017-12-13 06:59] LABS: HGB 9.5 gm/dL (11.4-16.0)
[2017-12-13 07:04] LABS: ALT 18 U/L (9-52); AST 21 U/L (14-36); Albumin 2.7 g/dL (3.5-5.0); Alkaline Phosphatase 48 U/L (38-126); Anion Gap 11 mmol/L; Blood Urea Nitrogen 13 mg/dL (7-17); Calcium 8.6 mg/dL (8.4-10.2); Carbon Dioxide 22 mmol/L (22-30); Chloride 111 mmol/L (98-107); Glucose 75 mg/dL (74-99); Potassium 3.7 mmol/L (3.5-5.1); Sodium 144 mmol/L (137-145); Total Bilirubin 0.3 mg/dL (0.2-1.3); Total Protein 4.8 g/dL (6.3-8.2)
[2017-12-13] MEDS: traZODone HCL 50 MG TAB PO SCH ×2 (07:58→21:24)
[2017-12-13] MEDS: DULoxetine HCL 30 MG CAPSULE.DR PO SCH (07:58)
[2017-12-13] MEDS: FAMOTIDINE 20 MG/2 ML VIAL IV SCH ×2 (07:58→21:23)
[2017-12-13] MEDS: OXYBUTYNIN CHLORIDE 5 MG TAB PO SCH ×2 (07:59→21:24)
[2017-12-13] MEDS: TOPIRAMATE 25 MG TAB PO SCH ×2 (07:59→21:24)
[2017-12-13] MEDS: LISINOPRIL 5 MG TAB PO SCH (07:59)
[2017-12-13] MEDS: LORATADINE 10 MG TAB PO SCH (08:06)
--- NOTE | 2017-12-13 08:21 | ECHOF ---
Referral Reason:abn trop MEASUREMENTS -------- HEIGHT: 160.0 cm WEIGHT: 39.5 kg BP: RVIDd: 2.6 cm (< 3.3) IVSd: 1.5 cm (0.6 - 1.1) LVIDd: 2.8 cm (3.9 - 5.3) LVPWd: 1.3 cm (0.6 - 1.1) IVSs: 1.8 cm LVIDs: 2.2 cm LVPWs: 1.4 cm LA Diam: 4.1 cm (2.7 - 3.8) LAESV Index (A-L): 21.05 ml/m Ao Diam: 3.2 cm (2.0 - 3.7) AV Cusp: 1.6 cm (1.5 - 2.6) LA Diam: 4.0 cm (2.7 - 3.8) MV EXCURSION: 13.536 mm (> 18.000) MV EF SLOPE: 69 mm/s (70 - 150) EPSS: 0.3 cm MV E Sabino: 0.39 m/s MV DecT: 281 ms MV A Sabino: 0.73 m/s MV E/A Ratio: 0.53 FINDINGS -------- Sinus rhythm. This was a technically adequate study. The left ventricular size is normal. There is moderate concentric left ventricular hypertrophy. O verall left ventricular systolic function is low-normal with, an EF between 50 - 55 %. The right ventricle is normal in size. The left atrial size is normal. The right atrial size is normal. There is mild aortic valve sclerosis. There is no evidence of aortic regurgitation. Mild mitral annular calcification present. Mild mitral regurgitation is present. Mild tricuspid regurgitation present. There is no evidence of pulmonary hypertension. The right v entricular systolic pressure, as measured by Doppler, is {RVSP}. There is no pulmonic regurgitation present. The aortic root size is normal. There is no pericardial effusion. CONCLUSIONS -------- 1. The left ventricular size is normal. 2. There is moderate concentric left ventricular hypertrophy. 3. Overall left ventricular systolic function is low-normal with, an EF between 50 - 55 %. 4. The left atrial size is normal. 5. There is mild aortic valve sclerosis. 6. Mild mitral annular calcification present. 7. Mild mitral regurgitation is present. 8. Mild tricuspid regurgitation present. 9. There is no evidence of pulmonary hypertension. 10. The right ventricular systolic pressure, as measured by Doppler, is {RVSP}. 11. There is no pulmonic regurgitation present. 12. The aortic root size is normal. 13. There is no pericardial effusion. DRUG ENFORCEMENT AGENT: Kristal Champagne RDCS
[2017-12-13] MEDS: IPRATROPIUM 0.5 MG/2.5 ML NEBU INHALATION SCH ×4 (08:24→20:01)
[2017-12-13] MEDS ORDERED: PANTOPRAZOLE 40 MG/10 ML VIAL IV SCH (09:00)
[2017-12-13] MEDS: CHOLESTYRAMINE (WITH SUGAR) 4 GM PACKET PO SCH ×2 (11:16→16:53)
--- NOTE | 2017-12-13 11:26 | P.PN ---
Subjective Progress Note Date: 12/13/17 This is a 67-year-old female one of Dr. 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 Islas at that time. She presents to the emergency room with recurrent lower pelvic pain, was seen by the past general surgeon Dr. Negron for which an upper endoscopy was performed, however lower endoscopy still needs to be done, patient did not get this test done secondary to an illness. She has multiple imaging done from a facility all of which were reviewed including CAT scans of the abdomen and pelvis, all of which were showing moderate amount of retained stools, avascular necrosis of bilateral femoral heads, infrarenal abdominal aortic aneurysm with aortoiliac endograft and common iliac aneurysm, Her most recent CT was 10/30/2017, shows focal aneurysm at the left common iliac artery stent graft measuring 3.2 cm, aneurysm the landing zone at the right common iliac, 2.6 cm with moderate focal stenosis just beyond, stent graft remains patent [place] sac measures 4.4 cm unchanged, and this was reviewed with the radiologist, there is no and no endo leak noted. Patient has a mildly hydropic gallbladder, without surrounding inflammation, portal venous system is patent, no common bile duct dilatation. HIDA scan of the gallbladder shows hyperkinetic gallbladder 97%, patient underwent cholecystectomy on 11/28. She comes in today with complaints of multiple bouts of nausea, vomiting and diarrhea. She endorses fresh blood per rectum and has been wearing pads as the bleeding is excessive. Patient complains of left lower quadrant abdominal pain along with bloody stools. She denies any recent antibiotic use. She denies any fever or chills. She does have some shortness of breath. Patient endorses she lost 7-8 pounds since last month. Have suggested leukocyte of 10.9, creatinine 1.2 increased from baseline, troponin 0.0 67. Stool occult was ordered which came back negative. Blood pressure 187/77 respiratory rate 12 currently on 3 L of oxygen which is patient's home oxygen requirement, afebrile. Patient is admitted for evaluation of acute gastroenteritis. Cardiology consult for a increase troponin. Troponin 2 ordered. EKG not suggestive of any ST or T-wave changes 12/13: Patient is feeling better she can use to be somewhat weak, she is not able to tolerate her diet, she continues to have some abdominal pain, she has no diarrhea today, she has not thrown up yet. Objective - Vital Signs Vital signs: Vital Signs Temp 98.3 F 12/13/17 03:30 Pulse 80 12/13/17 03:30 Resp 18 12/13/17 03:30 BP 93/51 12/13/17 03:30 Pulse Ox 100 12/13/17 03:30 Intake & Output 12/12/17 12/13/17 12/13/17 18:59 06:59 18:59 Intake Total 310 Balance 310 Weight 39.463 kg 45 kg Intake: Oral 310 - Constitutional General appearance: Present: no acute distress - EENT Eyes: Present: anicteric sclerae, EOMI, PERRLA, normal appearance. Absent: ptosis, scleral icterus ENT: Present: hearing grossly normal, NA/AT, normal oropharynx. Absent: thrush Ears: bilateral: normal - Neck Neck: Present: normal ROM. Absent: lymphadenopathy, rigidity, stridor Carotids: bilateral: upstroke normal Thyroid: bilateral: normal size - Respiratory Respiratory: bilateral: diminished, prolonged expiration, negative: dullness, rales, rhonchi, wheezing - Cardiovascular Rhythm: regular Heart sounds: normal: S1, S2 Abnormal Heart Sounds: Present: systolic murmur - Gastrointestinal General gastrointestinal: Present: normal bowel sounds - Integumentary Integumentary: Present: normal, normal turgor - Musculoskeletal Musculoskeletal: Present: generalized weakness, strength equal bilaterally - Psychiatric Psychiatric: Present: A&O x's 3, appropriate affect, intact judgment & insight - Labs CBC & Chem 7: 12/13/17 06:10 12/13/17 06:10 Labs: Abnormal Lab Results - Last 24 Hours (Table) 12/12/17 12/12/17 12/12/17 Range/Units 08:09 08:09 08:09 WBC 10.9 H (3.8-10.6) k/uL RBC (3.80-5.40) m/uL Hgb (11.4-16.0) gm/dL Hct (34.0-46.0) % Plt Count (150-450) k/uL Chloride (98-107) mmol/L Carbon Dioxide 20 L (22-30) mmol/L BUN 21 H (7-17) mg/dL Creatinine 1.20 H (0.52-1.04) mg/dL CK-MB (CK-2) 3.8 H* (0.0-2.4) ng/mL Troponin I 0.065 H* (0.000-0.034) ng/mL Total Protein (6.3-8.2) g/dL Albumin (3.5-5.0) g/dL 12/12/17 12/12/17 12/13/17 Range/Units 15:15 20:02 06:10 WBC (3.8-10.6) k/uL RBC (3.80-5.40) m/uL Hgb (11.4-16.0) gm/dL Hct (34.0-46.0) % Plt Count (150-450) k/uL Chloride 111 H (98-107) mmol/L Carbon Dioxide (22-30) mmol/L BUN (7-17) mg/dL Creatinine (0.52-1.04) mg/dL CK-MB (CK-2) (0.0-2.4) ng/mL Troponin I 0.049 H* 0.049 H* (0.000-0.034) ng/mL Total Protein 4.8 L (6.3-8.2) g/dL Albumin 2.7 L (3.5-5.0) g/dL 12/13/17 Range/Units 06:10 WBC (3.8-10.6) k/uL RBC 3.14 L (3.80-5.40) m/uL Hgb 9.5 L D (11.4-16.0) gm/dL Hct 29.8 L (34.0-46.0) % Plt Count 147 L (150-450) k/uL Chloride (98-107) mmol/L Carbon Dioxide (22-30) mmol/L BUN (7-17) mg/dL Creatinine (0.52-1.04) mg/dL CK-MB (CK-2) (0.0-2.4) ng/mL Troponin I (0.000-0.034) ng/mL Total Protein (6.3-8.2) g/dL Albumin (3.5-5.0) g/dL Assessment and Plan Assessment: Assessment and Plan Plan: 1. Intractable nausea/vomiting/diarrhea appears likely secondary to viral gastroenteritis with possibility of a recent cholecystectomy-induced diarrhea. Continue fluids at 75 mL/h. Abdominal examination was benign no concern for acute diverticulitis or concern for infection. Patient does endorse bloody stools but fecal occult is negative. C. diff ordered Previous CT abdomen was positive for constipation. Patient has not underwent colonoscopy in the past. GI consulted and awaiting recommendation 2. Peripheral vascular disease with history of left common iliac artery stent graft with focal aneurysm 3.2 cm severe stenosis beyond aneurysm, right common iliac artery 2.6 cm with modest focal stenosis just beyond. Palpable aneurysm in the left lower quadrant, nontender to palpate. 3. Acute kidney injury likely prerenal from dehydration - continue normal saline at 75 mL per hour 4. Bilateral avascular necrosis bilateral femoral seen by Dr. Whipple orthopedic surgeon no intervention needed 5. History of Viridans strep bacteremia secondary to endovascular infection, endocarditis ruled out September 04 4 weeks IV vancomycin completed. 6. Troponinemia. Repeat troponin pending. Echo ordered. History of recent non-ST elevated myocardial infarction status post heart catheterization finding patent stent in the RCA and heavily calcified right and left coronary systems in July 2017. Atenolol switched to Coreg, aspirin 81 mg every day, pravastatin, 7. Chronic back pain. 8. Chronic anemia of chronic disease. Hemoglobin stable 9. PUD. Continue Carafate no changes 10. Hep C S/P Harvoni therapy. 11. Hyperlipidemia. Pravastatin. Patient was unable to tolerate Lipitor. 12. Abdominal aortic aneurysm S/P endovascular stent. 13. Chronic tobacco use and dependence. Smoking cessation and counseling an increased risk of CAD, CVA, and malignancy. Patient on nicotine patch. 14. Migraine Headache. Continue Topamax 50 mg orally twice every day as well as Fioricet half a pill every 4 hours as needed. 15. Hypertension and hypertensive cardiovascular disease. Atenolol switched to Coreg 3.125 twice a day 16. Restless leg syndrome. Continue Mirapex 0.125 mg orally at bedtime. 17. Obstructive sleep apnea. Stable. 18. Generalized anxiety disorder with panic disorder Depression, recurrent. Continue Cymbalta 30 mg in the morning and 60 mg at bedtime. 19. Overactive bladder. Patient is currently off oxybutynin. 20. Postmenopausal vaginal bleeding. Patient has been encouraged to follow-up with Dr. Lopez as an outpatient. 21. DVT prophylaxis. With SCDs 22. GI prophylaxis. Carafate. 23. Insomnia. Continue melatonin and trazodone. 24. Physical therapy evaluation.
--- NOTE | 2017-12-13 11:27 | CONS ---
CONSULTATION DATE OF CONSULTATION: 12/13/17 REQUESTING PHYSICIAN: Dr. Jenaro Colbert. REASON FOR CONSULTATION: Abdominal pain, diarrhea and rectal bleeding. HISTORY OF PRESENT ILLNESS: The patient is a 67-year-old white female was admitted to the hospital with abdominal pain, mostly in the left lower quadrant area associated with nausea, vomiting, and diarrhea. She states that she started she noticed fresh blood in the stool and had about 3 or 4 episodes on . She got concerned about her symptoms and came to the emergency room yesterday and was subsequently admitted for further evaluation. Since being in the hospital, she still continues to complain of abdominal pain, but no further episodes of rectal bleeding. The nausea and vomiting has also resolved. The patient is status post gallbladder surgery for gallbladder dyskinesia by Dr. Milligan which was done about 2 weeks ago at which time she was in the hospital for 2 days. Following discharge from the hospital the patient has been complaining of ongoing abdominal pain. She denies any fever, chills, or night sweats. Stool occult blood was done yesterday which was reported as negative. This morning she did not have any further episodes of bleeding. On review of her records, she did have an upper endoscopy as well as colonoscopy done by pa for acute GI bleeding in April of 2015, which showed gastritis and colonoscopy revealed segmental colitis in the sigmoid colon. Biopsies of which revealed ischemic colitis. She also had 2 small colon polyps. PAST MEDICAL HISTORY: Significant for coronary artery disease, COPD, history of DVT in the past, GERD, hypertension, hyperlipidemia, sleep apnea, chronic hepatitis C infection, status post Hervone treatment with sustained virological response. PAST SURGICAL HISTORY: Cholecystectomy, bladder surgery, cardiac cath, hysterectomy, EGD, colonoscopy April of 2015, exploratory laparotomy with stent for peripheral vascular disease. MEDICATIONS: At home include Tenormin, Carafate, Mirapex, Spiriva, Topamax, Cymbalta, Pravachol, Desyrel, Ventolin, Antivert, Catapres, Calcium, vitamin D3, Dexilant, Nitrostat, Ditropan, MiraLAX, Mucinex, Fioricet, Xanax. ALLERGIES: MULTIPLE. SEE LIST IN THE CHART. SOCIAL HISTORY: Chronic smoker. No alcohol use. FAMILY HISTORY: Unremarkable. REVIEW OF SYSTEMS: Cardiopulmonary: She denies any chest pain, shortness of breath. GENITOURINARY: No dysuria or hematuria. Musculoskeletal: Complains of chronic back pain. Neurology: Unremarkable. History of anxiety, depression, psychiatric. ENT vision unremarkable. Constitutional: Progressive weight loss. No fever, chills, night sweats. PHYSICAL EXAMINATION: She appears comfortable. No apparent distress. VITAL SIGNS: Stable. Blood pressure is 93/51, pulse 80, temperature 98.3. HEENT examination unremarkable. Conjunctivae pink. Sclerae anicteric. Oral cavity no lesions. Neck: No jugular venous distention or lymph node enlargement. The chest was clear to auscultation. HEART: Regular rate and rhythm. ABDOMEN: Soft. There was mild diffuse tenderness all over the abdomen. No rebound or rigidity. Extremities: No pedal edema. Skin: No rashes. Neurological: She is alert and oriented x3. No focal deficits. LABS: WBC was 10.9 yesterday, today it is 7.3, hemoglobin is 9.5, platelets are 147. Basic metabolic panel is within normal limits. Troponin was 0.065. Stool occult blood was negative. IMPRESSION: 1. This is a lady who presents to the hospital with abdominal pain associated with nausea, vomiting, diarrhea, and rectal bleeding that started about 3 days ago. She is status post gallbladder surgery gallbladder dyskinesia about [address] Milligan. Since being in the hospital abdominal pain is persistent. However, the nausea, vomiting, and diarrhea has resolved. In fact, no rectal bleeding since yesterday. She did have an EGD and colonoscopy as mentioned above in April of 2015 that showed evidence of mild segmental colitis involving the sigmoid colon and 2 small colon polyps. Her hemoglobin has slightly decreased from 12.5-9.5 g/dL. Clinically does not have any evidence of active ongoing bleeding. 2. Slightly elevated troponin. Cardiology has been consulted. 3. History of coronary artery disease status post myocardial infarction in the past. RECOMMENDATIONS: 1. Advance diet as tolerated. 2. No plans on any endoscopy intervention at the present time since the bleeding has completely resolved. 3. Repeat labs in the morning. At this time, I will follow the patient closely during the hospital stay. Thank you for this consultation. MMFILIBERTO / YUNIOR: [id number] /
[2017-12-13] MEDS: ALBUTEROL NEBULIZED 2.5 MG/3 ML INHALATION PRN ×3 (12:00→20:01)
[2017-12-13 12:01] LABS: Appearance,Urine Clear (Clear); Bilirubin,Urine Negative (Negative); Blood,Urine Negative (Negative); Color,Urine Light Yellow; Glucose,Urine (UA) Negative (Negative); Ketones,Urine 1+ (Negative); Leukocyte Esterase,Urine Negative (Negative); Nitrite,Urine Negative (Negative); Protein,Urine Trace (Negative); Urobilinogen,Urine <2.0 mg/dL (<2.0)
[2017-12-13] MEDS: MORPHINE ORAL SOLN 10 MG/5 ML CUP PO PRN (16:40)
[2017-12-13] MEDS: DULoxetine HCL 60 MG CAPSULE.DR PO SCH (21:23)
[2017-12-13] MEDS: MELATONIN 5 MG TABLET PO SCH (21:23)
[2017-12-13] MEDS: PRAMIPEXOLE 0.125 MG TAB PO SCH (21:24)
[2017-12-13] MEDS: PRAVASTATIN SODIUM 80 MG TAB PO SCH (21:24)
[2017-12-14] MEDS: MORPHINE ORAL SOLN 10 MG/5 ML CUP PO PRN (04:36)
[2017-12-14] MEDS: SODIUM CHLORIDE 0.9% 1,000 ML IV SCH (06:14)
[2017-12-14] MEDS: SUCRALFATE 1 GM TAB PO SCH ×4 (06:33→20:27)
[2017-12-14] MEDS: DEXLANSOPRAZOLE 60 MG PO SCH (06:33)
[2017-12-14] MEDS: CARVEDILOL 3.125 MG TAB PO SCH ×2 (06:34→17:17)
[2017-12-14 06:56] LABS: Basophils % (A) 0 %; Eosinophils # (A) 0.3 k/uL (0-0.7); Eosinophils % (A) 6 %; HCT 32.7 % (34.0-46.0); HGB 10.5 gm/dL (11.4-16.0); Lymphocytes # (A) 1.5 k/uL (1.0-4.8); Lymphocytes % (A) 26 %; MCV 93.8 fL (80.0-100.0); Mean Platelet Volume 7.9; Monocytes # (A) 0.3 k/uL (0-1.0); Monocytes % (A) 4 %; Neutrophils # (A) 3.5 k/uL (1.3-7.7); Neutrophils % (A) 62 %; Platelet Count 146 k/uL (150-450); RBC 3.49 m/uL (3.80-5.40); RDW 13.9 % (11.5-15.5); WBC 5.6 k/uL (3.8-10.6)
[2017-12-14 07:12] LABS: ALT 17 U/L (9-52); AST 23 U/L (14-36); Albumin 3.1 g/dL (3.5-5.0); Alkaline Phosphatase 51 U/L (38-126); Anion Gap 11 mmol/L; Blood Urea Nitrogen 6 mg/dL (7-17); Calcium 8.9 mg/dL (8.4-10.2); Carbon Dioxide 24 mmol/L (22-30); Chloride 110 mmol/L (98-107); Glucose 98 mg/dL (74-99); Magnesium 1.6 mg/dL (1.6-2.3); Potassium 3.5 mmol/L (3.5-5.1); Sodium 145 mmol/L (137-145); Total Bilirubin 0.3 mg/dL (0.2-1.3); Total Protein 5.3 g/dL (6.3-8.2)
[2017-12-14] MEDS: ALBUTEROL NEBULIZED 2.5 MG/3 ML INHALATION PRN ×2 (08:04→20:37)
[2017-12-14] MEDS: IPRATROPIUM 0.5 MG/2.5 ML NEBU INHALATION SCH ×4 (08:04→20:53)
[2017-12-14] MEDS: LISINOPRIL 5 MG TAB PO SCH (08:57)
[2017-12-14] MEDS: TOPIRAMATE 25 MG TAB PO SCH ×2 (08:57→20:27)
[2017-12-14] MEDS: traZODone HCL 50 MG TAB PO SCH ×3 (08:57→20:29)
[2017-12-14] MEDS: CHOLESTYRAMINE (WITH SUGAR) 4 GM PACKET PO SCH ×2 (08:58→16:56)
[2017-12-14] MEDS: FAMOTIDINE 20 MG/2 ML VIAL IV SCH ×2 (08:58→20:27)
[2017-12-14] MEDS: OXYBUTYNIN CHLORIDE 5 MG TAB PO SCH ×2 (08:58→20:27)
[2017-12-14] MEDS: LORATADINE 10 MG TAB PO SCH (08:58)
[2017-12-14] MEDS: DULoxetine HCL 30 MG CAPSULE.DR PO SCH (08:59)
--- NOTE | 2017-12-14 09:37 | P.PN ---
Subjective Progress Note Date: 12/14/17 This is a 67-year-old female one of Dr. 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 Islas at that time. She presents to the emergency room with recurrent lower pelvic pain, was seen by the past general surgeon Dr. Negron for which an upper endoscopy was performed, however lower endoscopy still needs to be done, patient did not get this test done secondary to an illness. She has multiple imaging done from a facility all of which were reviewed including CAT scans of the abdomen and pelvis, all of which were showing moderate amount of retained stools, avascular necrosis of bilateral femoral heads, infrarenal abdominal aortic aneurysm with aortoiliac endograft and common iliac aneurysm, Her most recent CT was 10/30/2017, shows focal aneurysm at the left common iliac artery stent graft measuring 3.2 cm, aneurysm the landing zone at the right common iliac, 2.6 cm with moderate focal stenosis just beyond, stent graft remains patent [place] sac measures 4.4 cm unchanged, and this was reviewed with the radiologist, there is no and no endo leak noted. Patient has a mildly hydropic gallbladder, without surrounding inflammation, portal venous system is patent, no common bile duct dilatation. HIDA scan of the gallbladder shows hyperkinetic gallbladder 97%, patient underwent cholecystectomy on 11/28. She comes in today with complaints of multiple bouts of nausea, vomiting and diarrhea. She endorses fresh blood per rectum and has been wearing pads as the bleeding is excessive. Patient complains of left lower quadrant abdominal pain along with bloody stools. She denies any recent antibiotic use. She denies any fever or chills. She does have some shortness of breath. Patient endorses she lost 7-8 pounds since last month. Have suggested leukocyte of 10.9, creatinine 1.2 increased from baseline, troponin 0.0 67. Stool occult was ordered which came back negative. Blood pressure 187/77 respiratory rate 12 currently on 3 L of oxygen which is patient's home oxygen requirement, afebrile. Patient is admitted for evaluation of acute gastroenteritis. Cardiology consult for a increase troponin. Troponin 2 ordered. EKG not suggestive of any ST or T-wave changes 12/13: Patient is feeling better she can use to be somewhat weak, she is not able to tolerate her diet, she continues to have some abdominal pain, she has no diarrhea today, she has not thrown up yet. 12/14: Patient feels a bit better today she continues to have some issues with nausea she is trying to eat more, she denies any chest pain, shortness breath, we will Hep-Lock her IV, and will consult physical therapy hopefully home tomorrow morning. Objective - Vital Signs Vital signs: Vital Signs Temp 96.9 F L 12/14/17 04:00 Pulse 78 12/14/17 04:00 Resp 18 12/14/17 04:00 BP 161/81 12/14/17 04:00 Pulse Ox 100 12/14/17 04:00 Intake & Output 12/13/17 12/14/17 12/14/17 18:59 06:59 18:59 Intake Total 600 0 Output Total 700 1150 Balance -100 -1150 Weight 45.1 kg Intake: Oral 600 0 Output: Urine 700 1150 - Exam - Constitutional General appearance: Present: no acute distress - EENT Eyes: Present: anicteric sclerae, EOMI, PERRLA, normal appearance. Absent: ptosis, scleral icterus ENT: Present: hearing grossly normal, NA/AT, normal oropharynx. Absent: thrush Ears: bilateral: normal - Neck Neck: Present: normal ROM. Absent: lymphadenopathy, rigidity, stridor Carotids: bilateral: upstroke normal Thyroid: bilateral: normal size - Respiratory Respiratory: bilateral: diminished, prolonged expiration, negative: dullness, rales, rhonchi, wheezing - Cardiovascular Rhythm: regular Heart sounds: normal: S1, S2 Abnormal Heart Sounds: Present: systolic murmur - Gastrointestinal General gastrointestinal: Present: normal bowel sounds - Integumentary Integumentary: Present: normal, normal turgor - Musculoskeletal Musculoskeletal: Present: generalized weakness, strength equal bilaterally - Psychiatric Psychiatric: Present: A&O x's 3, appropriate affect, intact judgment & insight - Labs CBC & Chem 7: 12/14/17 06:11 12/14/17 06:11 Labs: Abnormal Lab Results - Last 24 Hours (Table) 12/13/17 12/13/17 12/14/17 Range/Units 06:10 11:21 06:11 RBC 3.49 L (3.80-5.40) m/uL Hgb 10.5 L (11.4-16.0) gm/dL Hct 32.7 L (34.0-46.0) % Plt Count 146 L (150-450) k/uL Chloride 111 H (98-107) mmol/L Total Protein 4.8 L (6.3-8.2) g/dL Albumin 2.7 L (3.5-5.0) g/dL Urine Protein Trace H (Negative) Urine Ketones 1+ H (Negative) Assessment and Plan Assessment: Assessment and Plan Plan: 1. Intractable nausea/vomiting/diarrhea appears likely secondary to viral gastroenteritis with possibility of a recent cholecystectomy-induced diarrhea. Continue fluids at 75 mL/h. Abdominal examination was benign no concern for acute diverticulitis or concern for infection. Patient does endorse bloody stools but fecal occult is negative. C. diff ordered Previous CT abdomen was positive for constipation. Patient has not underwent colonoscopy in the past. GI consulted and awaiting recommendation 2. Peripheral vascular disease with history of left common iliac artery stent graft with focal aneurysm 3.2 cm severe stenosis beyond aneurysm, right common iliac artery 2.6 cm with modest focal stenosis just beyond. Palpable aneurysm in the left lower quadrant, nontender to palpate. 3. Acute kidney injury likely prerenal from dehydration - continue normal saline at 75 mL per hour 4. Bilateral avascular necrosis bilateral femoral seen by Dr. Whipple orthopedic surgeon no intervention needed 5. History of Viridans strep bacteremia secondary to endovascular infection, endocarditis ruled out September 04 4 weeks IV vancomycin completed. 6. Troponinemia. Repeat troponin pending. Echo ordered. History of recent non-ST elevated myocardial infarction status post heart catheterization finding patent stent in the RCA and heavily calcified right and left coronary systems in July 2017. Atenolol switched to Coreg, aspirin 81 mg every day, pravastatin, 7. Chronic back pain. 8. Chronic anemia of chronic disease. Hemoglobin stable 9. PUD. Continue Carafate no changes 10. Hep C S/P Harvoni therapy. 11. Hyperlipidemia. Pravastatin. Patient was unable to tolerate Lipitor. 12. Abdominal aortic aneurysm S/P endovascular stent. 13. Chronic tobacco use and dependence. Smoking cessation and counseling an increased risk of CAD, CVA, and malignancy. Patient on nicotine patch. 14. Migraine Headache. Continue Topamax 50 mg orally twice every day as well as Fioricet half a pill every 4 hours as needed. 15. Hypertension and hypertensive cardiovascular disease. Atenolol switched to Coreg 3.125 twice a day 16. Restless leg syndrome. Continue Mirapex 0.125 mg orally at bedtime. 17. Obstructive sleep apnea. Stable. 18. Generalized anxiety disorder with panic disorder Depression, recurrent. Continue Cymbalta 30 mg in the morning and 60 mg at bedtime. 19. Overactive bladder. Patient is currently off oxybutynin. 20. Postmenopausal vaginal bleeding. Patient has been encouraged to follow-up with Dr. Lopez as an outpatient. 21. DVT prophylaxis. With SCDs 22. GI prophylaxis. Carafate. 23. Insomnia. Continue melatonin and trazodone. 24. Physical therapy evaluation.
--- NOTE | 2017-12-14 10:34 | PN ---
PROGRESS NOTE DATE OF DICTATION: December 14, 2017 Patient is a 67-year-old pleasant white female admitted to the hospital with nausea, vomiting, diarrhea and rectal bleeding of 2 days duration. Since being in the hospital, she is doing better. She still has some abdominal pain, but now she is constipated. She did not have any further episodes of bleeding. She reports no fever, chills, or night sweats. PHYSICAL EXAMINATION: She appears comfortable in no apparent distress. VITAL SIGNS: Stable. Blood pressure is 156/78, pulse is 75, temperature 96.8. HEENT examination unremarkable. Conjunctivae pink. Sclerae anicteric. Oral cavity no lesions. Neck no jugular venous distention or lymph node enlargement. Chest was clear to auscultation. HEART: Regular rate and rhythm. ABDOMEN: Soft. There was mild tenderness in the lower abdominal area but no rebound or rigidity. Extremities no pedal edema. Skin no rashes. Neuro: She is alert and oriented x3. No focal deficits. LAB: From today WBC 5.6, hemoglobin 10.5, platelets are 146. The rest of the physical examination is unremarkable. IMPRESSION: 1. Nausea, vomiting, diarrhea, rectal bleeding of 2 days duration. Symptoms now resolved. No further episodes of bleeding. Hemoglobin stable at 10 g/dL. As mentioned earlier, she did have an EGD and colonoscopy in April of 2015 that showed small polyps and segmental colitis. 2. History of chronic constipation. 3. Mildly elevated troponin. Cardiology following the patient closely. RECOMMENDATIONS: 1. Advance diet as tolerated. 2. We will start on MiraLAX 17 g twice daily for constipation and hopefully this will improve her abdominal pain. 3. Suggest to the patient to decrease narcotic use. 4. No plans on any endoscopy intervention. Thank you for this consultation. MMODL / IJN: [id number] /
[2017-12-14] MEDS: POLYETHYLENE GLYCOL 3350 17 GM POWD.PACK PO SCH (11:59)
[2017-12-14] MEDS: PRAVASTATIN SODIUM 80 MG TAB PO SCH (20:26)
[2017-12-14] MEDS: DULoxetine HCL 60 MG CAPSULE.DR PO SCH (20:27)
[2017-12-14] MEDS: PRAMIPEXOLE 0.125 MG TAB PO SCH (20:27)
[2017-12-14] MEDS: MELATONIN 5 MG TABLET PO SCH ×2 (20:27→22:07)
[2017-12-15] MEDS: MORPHINE ORAL SOLN 10 MG/5 ML CUP PO PRN (04:01)
[2017-12-15 05:59] LABS: ALT 18 U/L (9-52); AST 34 U/L (14-36); Albumin 3.4 g/dL (3.5-5.0); Alkaline Phosphatase 59 U/L (38-126); Anion Gap 13 mmol/L; Basophils % (A) 0 %; Blood Urea Nitrogen 5 mg/dL (7-17); Calcium 9.5 mg/dL (8.4-10.2); Carbon Dioxide 23 mmol/L (22-30); Chloride 107 mmol/L (98-107); Eosinophils # (A) 0.5 k/uL (0-0.7); Eosinophils % (A) 9 %; Glucose 89 mg/dL (74-99); HCT 33.1 % (34.0-46.0); Lymphocytes # (A) 1.5 k/uL (1.0-4.8); Lymphocytes % (A) 23 %; MCH 30.5 pg (25.0-35.0); MCHC 33.1 g/dL (31.0-37.0); MCV 92.1 fL (80.0-100.0); Mean Platelet Volume 8.2; Monocytes # (A) 0.3 k/uL (0-1.0); Monocytes % (A) 4 %; Neutrophils # (A) 3.9 k/uL (1.3-7.7); Neutrophils % (A) 62 %; Platelet Count 144 k/uL (150-450); Potassium 3.5 mmol/L (3.5-5.1); Sodium 143 mmol/L (137-145); Total Bilirubin 0.6 mg/dL (0.2-1.3); Total Protein 5.8 g/dL (6.3-8.2); WBC 6.2 k/uL (3.8-10.6)
[2017-12-15] MEDS: DEXLANSOPRAZOLE 60 MG PO SCH (06:46)
[2017-12-15] MEDS: CARVEDILOL 3.125 MG TAB PO SCH ×2 (06:47→18:29)
[2017-12-15] MEDS: SUCRALFATE 1 GM TAB PO SCH ×4 (06:47→21:35)
[2017-12-15] MEDS: IPRATROPIUM 0.5 MG/2.5 ML NEBU INHALATION SCH ×4 (09:03→20:17)
[2017-12-15] MEDS: POLYETHYLENE GLYCOL 3350 17 GM POWD.PACK PO SCH (09:09)
[2017-12-15] MEDS: CHOLESTYRAMINE (WITH SUGAR) 4 GM PACKET PO SCH ×2 (09:09→18:29)
[2017-12-15] MEDS: FAMOTIDINE 20 MG/2 ML VIAL IV SCH (09:21)
[2017-12-15] MEDS: LISINOPRIL 5 MG TAB PO SCH (09:21)
[2017-12-15] MEDS: LORATADINE 10 MG TAB PO SCH (09:21)
[2017-12-15] MEDS: DULoxetine HCL 30 MG CAPSULE.DR PO SCH (09:21)
[2017-12-15] MEDS: traZODone HCL 50 MG TAB PO SCH ×2 (09:21→21:35)
[2017-12-15] MEDS: OXYBUTYNIN CHLORIDE 5 MG TAB PO SCH ×2 (09:21→22:01)
[2017-12-15] MEDS: TOPIRAMATE 25 MG TAB PO SCH ×2 (09:21→21:35)
[2017-12-15 13:17] VITALS: BMI 13.8
[2017-12-15] MEDS: ACETAMINOPHEN TAB 325 MG TAB PO PRN (18:29)
[2017-12-15] MEDS: ALBUTEROL NEBULIZED 2.5 MG/3 ML INHALATION PRN (20:17)
--- NOTE | 2017-12-15 21:20 | P.PN ---
Subjective Progress Note Date: 12/15/17 This is a 67-year-old female one of Dr. 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 Islas at that time. She presents to the emergency room with recurrent lower pelvic pain, was seen by the past general surgeon Dr. Negron for which an upper endoscopy was performed, however lower endoscopy still needs to be done, patient did not get this test done secondary to an illness. She has multiple imaging done from a facility all of which were reviewed including CAT scans of the abdomen and pelvis, all of which were showing moderate amount of retained stools, avascular necrosis of bilateral femoral heads, infrarenal abdominal aortic aneurysm with aortoiliac endograft and common iliac aneurysm, Her most recent CT was 10/30/2017, shows focal aneurysm at the left common iliac artery stent graft measuring 3.2 cm, aneurysm the landing zone at the right common iliac, 2.6 cm with moderate focal stenosis just beyond, stent graft remains patent eyak sac measures 4.4 cm unchanged, and this was reviewed with the radiologist, there is no and no endo leak noted. Patient has a mildly hydropic gallbladder, without surrounding inflammation, portal venous system is patent, no common bile duct dilatation. HIDA scan of the gallbladder shows hyperkinetic gallbladder 97%, patient underwent cholecystectomy on 11/28. She comes in today with complaints of multiple bouts of nausea, vomiting and diarrhea. She endorses fresh blood per rectum and has been wearing pads as the bleeding is excessive. Patient complains of left lower quadrant abdominal pain along with bloody stools. She denies any recent antibiotic use. She denies any fever or chills. She does have some shortness of breath. Patient endorses she lost 7-8 pounds since last month. Have suggested leukocyte of 10.9, creatinine 1.2 increased from baseline, troponin 0.0 67. Stool occult was ordered which came back negative. Blood pressure 187/77 respiratory rate 12 currently on 3 L of oxygen which is patient's home oxygen requirement, afebrile. Patient is admitted for evaluation of acute gastroenteritis. Cardiology consult for a increase troponin. Troponin 2 ordered. EKG not suggestive of any ST or T-wave changes 12/13: Patient is feeling better she can use to be somewhat weak, she is not able to tolerate her diet, she continues to have some abdominal pain, she has no diarrhea today, she has not thrown up yet. 12/14: Patient feels a bit better today she continues to have some issues with nausea she is trying to eat more, she denies any chest pain, shortness breath, we will Hep-Lock her IV, and will consult physical therapy hopefully home tomorrow morning. 12/15: Patient has been seen by cardiology and normally follows with Dr. VC Garcia in the office. Echocardiogram reveals EF of 50-55%, mild mitral regurgitation, mild tricuspid regurgitation, no pulmonary hypertension. Repeat troponins were 0.0492. Acute coronary syndrome has been ruled out. Patient has been seen and followed by Dr. Funez. Her symptoms have now resolved. Her hemoglobin is stable at 11.0. Dr. Funez has resumed MiraLAX twice daily and advance diet. She also suggested decreasing narcotic use. No plans for endoscopy. PT has recommended subacute rehab and patient is agreeable. Social work is obtaining authorization. Daughter is requesting a psychiatric evaluation as she is concerned that patient suffers from anorexia and a consult will be requested. Discharge planned for today will be postponed to make arrangements for ECF. Patient will be transferred to the med-surg floor. Objective - Vital Signs Vital signs: Vital Signs Temp 98 F 12/15/17 12:00 Pulse 85 12/15/17 15:09 Resp 16 12/15/17 15:09 BP 123/56 12/15/17 12:00 Pulse Ox 98 12/15/17 12:00 Intake & Output 12/14/17 12/15/17 12/15/17 18:59 06:59 18:59 Intake Total 300 Output Total 350 Balance -350 300 Weight 35.5 kg 35.5 kg Intake: Oral 300 Output: Urine 350 Other: Voiding Method Bedpan Bedpan # Voids 2 - Exam General appearance: Present: no acute distress - EENT Eyes: Present: anicteric sclerae, EOMI, PERRLA, normal appearance. Absent: ptosis, scleral icterus ENT: Present: hearing grossly normal, NA/AT, normal oropharynx. Absent: thrush Ears: bilateral: normal - Neck Neck: Present: normal ROM. Absent: lymphadenopathy, rigidity, stridor Carotids: bilateral: upstroke normal Thyroid: bilateral: normal size - Respiratory Respiratory: bilateral: diminished, prolonged expiration, negative: dullness, rales, rhonchi, wheezing - Cardiovascular Rhythm: regular Heart sounds: normal: S1, S2 Abnormal Heart Sounds: Present: systolic murmur - Gastrointestinal General gastrointestinal: Present: normal bowel sounds - Integumentary Integumentary: Present: normal, normal turgor - Musculoskeletal Musculoskeletal: Present: generalized weakness, strength equal bilaterally - Psychiatric Psychiatric: Present: A&O x's 3, appropriate affect, intact judgment & insight - Labs CBC & Chem 7: 12/15/17 05:31 12/15/17 05:31 Labs: Abnormal Lab Results - Last 24 Hours (Table) 12/15/17 12/15/17 Range/Units 05:31 05:31 RBC 3.60 L (3.80-5.40) m/uL Hgb 11.0 L (11.4-16.0) gm/dL Hct 33.1 L (34.0-46.0) % Plt Count 144 L (150-450) k/uL BUN 5 L (7-17) mg/dL Total Protein 5.8 L (6.3-8.2) g/dL Albumin 3.4 L (3.5-5.0) g/dL Assessment and Plan Plan: 1. Intractable nausea/vomiting/diarrhea appears likely secondary to viral gastroenteritis with possibility of a recent cholecystectomy-induced diarrhea. Previous CT abdomen was positive for constipation. Patient has not underwent colonoscopy in the past. GI consulted and added Miralax and advance diet.. 2. Peripheral vascular disease with history of left common iliac artery stent graft with focal aneurysm 3.2 cm severe stenosis beyond aneurysm, right common iliac artery 2.6 cm with modest focal stenosis just beyond. Palpable aneurysm in the left lower quadrant, nontender to palpate. 3. Acute kidney injury likely prerenal from dehydration. Off IV fluids. 4. Bilateral avascular necrosis bilateral femoral seen by Dr. Makim orthopedic surgeon no intervention needed 5. History of Viridans strep bacteremia secondary to endovascular infection, endocarditis ruled out September 04 4 weeks IV vancomycin completed. 6. Troponinemia. No acute coronary syndrome. History of recent non-ST elevated myocardial infarction status post heart catheterization finding patent stent in the RCA and heavily calcified right and left coronary systems in July 2017. Atenolol switched to Coreg, aspirin 81 mg every day, pravastatin , 7. Chronic back pain. 8. Chronic anemia of chronic disease. Hemoglobin stable 9. PUD. Continue Carafate no changes 10. Hep C S/P Harvoni therapy. 11. Hyperlipidemia. Pravastatin. Patient was unable to tolerate Lipitor. 12. Abdominal aortic aneurysm S/P endovascular stent. 13. Chronic tobacco use and dependence. Smoking cessation and counseling an increased risk of CAD, CVA, and malignancy. Patient on nicotine patch. 14. Migraine Headache. Continue Topamax 50 mg orally twice every day as well as Fioricet half a pill every 4 hours as needed. 15. Hypertension and hypertensive cardiovascular disease. Atenolol switched to Coreg 3.125 twice a day 16. Restless leg syndrome. Continue Mirapex 0.125 mg orally at bedtime. 17. Obstructive sleep apnea. Stable. 18. Generalized anxiety disorder with panic disorder Depression, recurrent. Continue Cymbalta 30 mg in the morning and 60 mg at bedtime. 19. Overactive bladder. Patient is currently off oxybutynin. 20. Postmenopausal vaginal bleeding. Patient has been encouraged to follow-up with Dr. Lopez as an outpatient. 21. DVT prophylaxis. With SCDs 22. GI prophylaxis. Carafate. 23. Insomnia. Continue melatonin and trazodone. 24. Severe protein calorie malnutrition. Protein supplements. Consult with Psyciatry per daughters request. Discharge plan: Subacute rehab tomorrow Impression and plan of care have been directed as dictated by the signing physician. Coby Joaquin nurse practitioner acting as scribe for signing physician.
[2017-12-15] MEDS: MELATONIN 5 MG TABLET PO SCH (21:36)
[2017-12-15] MEDS: PRAVASTATIN SODIUM 80 MG TAB PO SCH (21:36)
[2017-12-15] MEDS: DULoxetine HCL 60 MG CAPSULE.DR PO SCH (21:36)
[2017-12-15] MEDS: PRAMIPEXOLE 0.125 MG TAB PO SCH (21:36)
[2017-12-16] MEDS: DEXLANSOPRAZOLE 60 MG PO SCH (08:20)
[2017-12-16] MEDS: traZODone HCL 50 MG TAB PO SCH (08:20)
[2017-12-16] MEDS: TOPIRAMATE 25 MG TAB PO SCH (08:20)
[2017-12-16] MEDS: LISINOPRIL 5 MG TAB PO SCH (08:20)
[2017-12-16] MEDS: CARVEDILOL 3.125 MG TAB PO SCH ×2 (08:20→16:53)
[2017-12-16] MEDS: LORATADINE 10 MG TAB PO SCH (08:20)
[2017-12-16] MEDS: SUCRALFATE 1 GM TAB PO SCH ×3 (08:20→16:53)
[2017-12-16] MEDS: OXYBUTYNIN CHLORIDE 5 MG TAB PO SCH (08:20)
[2017-12-16] MEDS: CHOLESTYRAMINE (WITH SUGAR) 4 GM PACKET PO SCH ×2 (08:21→18:47)
[2017-12-16] MEDS: POLYETHYLENE GLYCOL 3350 17 GM POWD.PACK PO SCH (08:21)
[2017-12-16] MEDS ORDERED: FAMOTIDINE 20 MG TAB PO SCH (09:00)
[2017-12-16] MEDS: DULoxetine HCL 30 MG CAPSULE.DR PO SCH (09:10)
[2017-12-16] MEDS: IPRATROPIUM 0.5 MG/2.5 ML NEBU INHALATION SCH ×3 (09:12→15:52)
--- NOTE | 2017-12-16 10:47 | P.DS ---
Providers Date of admission: 12/12/17 10:39 Expected date of discharge: 12/16/17 Attending physician: Vidal Tate Consults: 12/12/17 10:55 Consult Physician Stat Consulting Provider: Tim Timmons Consult Reason/Comments: Elevated troponin, weakness Do you want consulting provider notified?: Yes 12/12/17 11:21 Consult Physician Routine Consulting Provider: Tim Timmons Consult Reason/Comments: elevated trop Do you want consulting provider notified?: Yes 12/12/17 11:27 Consult Physician Routine Consulting Provider: Edda Moy Consult Reason/Comments: GI bleed, vomiting Do you want consulting provider notified?: Yes Primary care physician: [facility] Course: This is a 67-year-old female one of Dr. 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 Islas at that time. She presents to the emergency room with recurrent lower pelvic pain, was seen by the past general surgeon Dr. Negron for which an upper endoscopy was performed, however lower endoscopy still needs to be done, patient did not get this test done secondary to an illness. She has multiple imaging done from a facility all of which were reviewed including CAT scans of the abdomen and pelvis, all of which were showing moderate amount of retained stools, avascular necrosis of bilateral femoral heads, infrarenal abdominal aortic aneurysm with aortoiliac endograft and common iliac aneurysm, Her most recent CT was 10/30/2017, shows focal aneurysm at the left common iliac artery stent graft measuring 3.2 cm, aneurysm the landing zone at the right common iliac, 2.6 cm with moderate focal stenosis just beyond, stent graft remains patent quinault sac measures 4.4 cm unchanged, and this was reviewed with the radiologist, there is no and no endo leak noted. Patient has a mildly hydropic gallbladder, without surrounding inflammation, portal venous system is patent, no common bile duct dilatation. HIDA scan of the gallbladder shows hyperkinetic gallbladder 97%, patient underwent cholecystectomy on 11/28. She comes in today with complaints of multiple bouts of nausea, vomiting and diarrhea. She endorses fresh blood per rectum and has been wearing pads as the bleeding is excessive. Patient complains of left lower quadrant abdominal pain along with bloody stools. She denies any recent antibiotic use. She denies any fever or chills. She does have some shortness of breath. Patient endorses she lost 7-8 pounds since last month. Have suggested leukocyte of 10.9, creatinine 1.2 increased from baseline, troponin 0.0 67. Stool occult was ordered which came back negative. Blood pressure 187/77 respiratory rate 12 currently on 3 L of oxygen which is patient's home oxygen requirement, afebrile. Patient is admitted for evaluation of acute gastroenteritis. Cardiology consult for a increase troponin. Troponin 2 ordered. EKG not suggestive of any ST or T-wave changes 12/13: Patient is feeling better she can use to be somewhat weak, she is not able to tolerate her diet, she continues to have some abdominal pain, she has no diarrhea today, she has not thrown up yet. 12/14: Patient feels a bit better today she continues to have some issues with nausea she is trying to eat more, she denies any chest pain, shortness breath, we will Hep-Lock her IV, and will consult physical therapy hopefully home tomorrow morning. 12/15: Patient has been seen by cardiology and normally follows with Dr. VC Garcia in the office. Echocardiogram reveals EF of 50-55%, mild mitral regurgitation, mild tricuspid regurgitation, no pulmonary hypertension. Repeat troponins were 0.0492. Acute coronary syndrome has been ruled out. Patient has been seen and followed by Dr. Funez. Her symptoms have now resolved. Her hemoglobin is stable at 11.0. Dr. Funez has resumed MiraLAX twice daily and advance diet. She also suggested decreasing narcotic use. No plans for endoscopy. PT has recommended subacute rehab and patient is agreeable. Social work is obtaining authorization. Daughter is requesting a psychiatric evaluation as she is concerned that patient suffers from anorexia and a consult will be requested. Discharge planned for today will be postponed to make arrangements for ECF. Patient will be transferred to the med-surg floor. 12/16: Patient has been seen by psychiatry, Dr. Garcia, with recommendations to obtain a guardian patient is unable to take care of herself without assistance, discontinue morning dose of trazodone and continue trazodone 50 mg at bedtime. Would evaluate that this be reevaluated at the rehab facility and could be discontinued. Recommend Xanax to be decreased to see if this improves patient' s cognitive functioning. Recommendations to decrease to 25% of the total dose every 2-3 weeks. Discussed in detail with the patient who is reluctant but agreeable. Patient is on a decreased dose of Xanax while here at 0.5 mg 3 times daily as needed which will be continued at the snf. Her home dose of Xanax was 1 mg 3 times daily. Patient will be discharged to [facility] once authorization is completed. Discharge diagnoses: 1. Intractable nausea/vomiting/diarrhea appears likely secondary to viral gastroenteritis with possibility of a recent cholecystectomy-induced diarrhea. 2. Peripheral vascular disease with history of left common iliac artery stent graft with focal aneurysm 3.2 cm severe stenosis beyond aneurysm, right common iliac artery 2.6 cm with modest focal stenosis just beyond. Palpable aneurysm in the left lower quadrant, nontender to palpate. 3. Acute kidney injury likely prerenal from dehydration 4. Bilateral avascular necrosis bilateral femoral seen by Dr. Whipple 5. History of Viridans strep bacteremia secondary to endovascular infection, endocarditis ruled out September 04 6. Troponinemia. 7. Chronic back pain. 8. Chronic anemia of chronic disease. 9. PUD. 10. Hep C S/P Harvoni therapy. 11. Hyperlipidemia. 12. Abdominal aortic aneurysm S/P endovascular stent. 13. Chronic tobacco use and dependence. 14. Migraine Headache. 15. Hypertension and hypertensive cardiovascular disease. 16. Restless leg syndrome. 17. Obstructive sleep apnea. 18. Generalized anxiety disorder with panic disorder Depression, recurrent. 19. Overactive bladder. 20. Postmenopausal vaginal bleeding. Patient has been encouraged to follow-up with Dr. Lopez as an outpatient. 21. Insomnia. Discharge plan: Subacute rehab Impression and plan of care have been directed as dictated by the signing physician. Coby Joaquin nurse practitioner acting as scribe for signing physician. Patient Condition at Discharge: Good Plan - Discharge Summary Discharge Rx Participant: No New Discharge Prescriptions: New Cholestyramine (with Sugar) [Questran Packet] 4 gm PO BID@1000,1800 #60 packet Famotidine [Pepcid] 20 mg PO DAILY #30 tab Lisinopril [Zestril] 5 mg PO DAILY #30 tab ALPRAZolam [Xanax] 0.5 mg PO TID PRN #90 tab PRN Reason: Anxiety Continue Sucralfate [Carafate] 1 gm PO ACHS Atenolol [Tenormin] 12.5 mg PO HS Tiotropium 18 Mcg/Puff [Spiriva] 1 cap INHALATION RT-HS Pramipexole [Mirapex] 0.125 mg PO HS Topiramate [Topamax] 50 mg PO BID Melatonin 5 mg PO HS #30 tablet DULoxetine HCL [Cymbalta] 60 mg PO HS DULoxetine HCL [Cymbalta] 30 mg PO DAILY Aspirin 81 mg PO DAILY chew Pravastatin Sodium [Pravachol] 80 mg PO HS #0 tab Meclizine [Antivert] 12.5 mg PO Q8H PRN PRN Reason: Vertigo Albuterol Nebulized [Ventolin Nebulized] 2.5 mg INHALATION RT-QID PRN PRN Reason: Shortness Of Breath Cholecalciferol [Vitamin D3] 1,000 unit PO DAILY Polyethylene Glycol 3350 [Miralax] 17 gm PO DAILY Oxybutynin Chloride [Ditropan] 5 mg PO BID Nitroglycerin Sl Tabs [Nitrostat] 0.4 mg SUBLINGUAL Q5M PRN PRN Reason: Chest Pain guaiFENesin [Mucinex] 1,200 mg PO Q12H Fexofenadine HCl 30 mg PO Q12H Dexlansoprazole [Dexilant] 60 mg PO DAILY Calcium Carbonate [Calcium] 600 mg PO BID Butalb/APAP/Caff 50-325-40Mg [Fioricet 50-325-40] 1 tab PO Q4H PRN PRN Reason: pain Changed traZODone HCL [Desyrel] 50 mg PO HS #30 tab Discontinued cloNIDine HCL [Catapres] 0.1 mg PO Q8H PRN PRN Reason: BP > 160 ALPRAZolam [Xanax] 1 mg PO TID PRN PRN Reason: Anxiety Discharge Medication List Atenolol [Tenormin] 12.5 mg PO HS 12/27/13 [History] Sucralfate [Carafate] 1 gm PO ACHS 12/27/13 [History] Pramipexole [Mirapex] 0.125 mg PO HS 09/12/14 [History] Tiotropium 18 Mcg/Puff [Spiriva] 1 cap INHALATION RT-HS 09/12/14 [History] Topiramate [Topamax] 50 mg PO BID 05/03/15 [History] Melatonin 5 mg PO HS #30 tablet 02/16/17 [Rx] DULoxetine HCL [Cymbalta] 30 mg PO DAILY 07/18/17 [History] DULoxetine HCL [Cymbalta] 60 mg PO HS 07/18/17 [History] Aspirin 81 mg PO DAILY chew 09/02/17 [Rx] Pravastatin Sodium [Pravachol] 80 mg PO HS #0 tab 09/02/17 [Rx] Albuterol Nebulized [Ventolin Nebulized] 2.5 mg INHALATION RT-QID PRN 10/11/17 [ History] Meclizine [Antivert] 12.5 mg PO Q8H PRN 10/11/17 [History] Butalb/APAP/Caff 50-325-40Mg [Fioricet 50-325-40] 1 tab PO Q4H PRN 12/12/17 [ History] Calcium Carbonate [Calcium] 600 mg PO BID 12/12/17 [History] Cholecalciferol [Vitamin D3] 1,000 unit PO DAILY 12/12/17 [History] Dexlansoprazole [Dexilant] 60 mg PO DAILY 12/12/17 [History] Fexofenadine HCl 30 mg PO Q12H 12/12/17 [History] Nitroglycerin Sl Tabs [Nitrostat] 0.4 mg SUBLINGUAL Q5M PRN 12/12/17 [History] Oxybutynin Chloride [Ditropan] 5 mg PO BID 12/12/17 [History] Polyethylene Glycol 3350 [Miralax] 17 gm PO DAILY 12/12/17 [History] guaiFENesin [Mucinex] 1,200 mg PO Q12H 12/12/17 [History] Cholestyramine (with Sugar) [Questran Packet] 4 gm PO BID@1000,1800 #60 packet 12/15/17 [Rx] Famotidine [Pepcid] 20 mg PO DAILY #30 tab 12/15/17 [Rx] Lisinopril [Zestril] 5 mg PO DAILY #30 tab 12/15/17 [Rx] ALPRAZolam [Xanax] 0.5 mg PO TID PRN #90 tab 12/16/17 [Rx] traZODone HCL [Desyrel] 50 mg PO HS #30 tab 12/16/17 [Rx] Follow up Appointment(s)/Referral(s): Jenaro Colbert DO [Primary Care Provider] - 1-2 days (Spoke to dental office receptionist. Office will call with appointment time) Shaji Garcia MD [STAFF PHYSICIAN] - 01/15/18 3:00 pm () Discharge Disposition: HOME WITH HOME HEALTH SERVICES
--- NOTE | 2017-12-16 12:19 | P.CN ---
Psychiatric Consult - . Consult date: 12/16/17 Consult:: 12/16/17 11:51 Identification: Patient is a 67-year-old female who came to the hospital with complaints of nausea and vomiting. Reason for Consult: Consultation was requested by her daughter who thinks that the patient has anorexia and depression History of Present Illness: Patient's chart was reviewed, the patient was seen and interviewed in her room no family members were present. Patient was a fair historian, stating that she is not eating enough because she doesn't feel that good at times at home after taking her medications. She states that she is no longer cooking and uses Me[employer] on Wheels or microwaves food. She states that she sometimes has difficulty eating the food from [employer] Whe[employer] because she has no dentures. She states that she's been only eating about 5-10% of her meals here in the hospital. She states at home that she and her have been using supplements, she states they use them twice a day. She told me that after she takes her medications in the morning she sometimes has no appetite after taking them and so doesn't eat that well. Patient reported that she is not trying to lose weight nor is she trying to restrict the number of calories that she consumes. Patient states that she had a nervous breakdown when she was in the [employer] at the age of 17 and was honorably discharged because of that. She states that she has been on and off medications since that time. Patient states she's been tried on many medications for her depression. She denies any psychotic features associated with that and no manic symptoms. Patient states that for 8 years most recently she was seeing a Dr. Cordero in [place]. She states that she has not seen him for the last 1-1/2 years because of the distance of his office and has been receiving her medications from her primary care physician. Patient states that she is taking Cymbalta 30 mg in the morning and 60 mg at night, she states that she takes Xanax at home as 0 point 5 in the morning, 0.2 5 in the afternoon and 0.5 at bedtime and as well using melatonin at night and also takes trazodone 50 mg twice a day. Patient was unable to report to me why she is taking trazodone and melatonin both, and is unable to tell me why she is taking trazodone in the morning. Patient states that she's been sleeping well at night and feels the medications of been helpful for her depression and anxiety. She reports not currently feeling depressed and reported no suicidal ideation and states that she has never made any suicide attempts in the past. Patient states that she is having difficulties with her memory and reported that she has had difficulty paying her own bills, she states that she's messed it up at times because she can't recall when the bills are due and states that her has been helping her with this task. Patient reports that she is not been cooking partly because of the difficulty doing the task, she could not elaborate further. Past Psychiatric History: patient reports a history of depression and anxiety since the age of 16 when she had a "nervous breakdown" when she was in the [employer] and was honorably discharged because of this. Patient states she's been on medication since that time. Patient is currently taking Cymbalta 30 mg the morning 60 mg at bedtime, melatonin 5 mg at bedtime, trazodone 50 mg twice a day , Xanax 0.5 mg 3 times a day as needed. Patient denies any inpatient psychiatric treatment and states that currently she's been receiving her medications from her primary care physician after having difficulty driving to [place] to see her prior psychiatrist. Patient denies any suicide attempts. Past Medical/Surgical History: hepatitis C treated, DVT, coronary artery disease with stent placement, COPD, GERD, hypertension, sleep apnea, migraine headaches, and aortic aneurysm with stent placement and bilateral femoral head necrosis. Family History: Patient states her mother was treated for depression and anxiety as well as several maternal cousins. She states that her father used alcohol. She is unaware of any completed suicides in the family Social History: patient states that her father when she was quite young and her mother remarried, she reports having 3 brothers and 1 sister. She states her mother is as well as her stepfather. Patient states that she completed high school and enlisted in the [employer] but was honorably discharged after having with the patient describes as a nervous breakdown at the age of 17. Patient reports completing an associates degree in having her [employer] and working she thought until 1993. Patient stated she is to her current for 17 years. She states she was to the father of her 46-year-old daughter for she thinks for years before they were . Patient has a son who is 39 years of age but the patient was unable to tell me who his father was or what marriage. Patient currently lives with her , she states that they haven't had a visiting nurse in the past, she does not cook any longer and they do have Meals on Wheels and her using nutrition supplements. She reports that her has been helping her with her bill paying as she has not been able to do that. Substance Use History: patient reports alcohol use in the remote past none currently, no current or prior drug use history and states that she continues to use tobacco products. Legal History: Patient denies any legal history Mental status: Appearance/Attitude: Patient is lying in a hospital bed, makes intermittent eye contact and is cooperative Behavior: Patient does not exhibit any psychomotor agitation but there is evidence of some psychomotor slowing, as the patient had long pauses prior to responding to questions Speech/Language: Patient's speech was slowed, she responded to questions briefly with little elaboration, spoke in a normal volume and rhythm and was coherent Thought Process: Patient tried to respond to questions but at times stated that she could not recall the information, her responses were goal directed however with minimal elaboration there is no evidence of loose association or flight of ideas Thought Content: Patient denied auditory or visual hallucinations no delusions or paranoid ideation were elicited. Patient states that she has difficulty cooking at home and so they've only been using Meals on Wheels or microwaving food as her does not cook either. Patient also stated that she is feeling fairly good on her medications reporting no longer feeling depressed on her current medications but does use Xanax 3 times a day for what she described as anxiety but again could not further elaborate on what she meant by anxiety. Patient states that she sleeps well at night and reports that her appetite is poor secondary to after taking her medications in the morning she states that she has difficulty eating after that. Suicidal/Homicidal Ideation: Patient denied any current suicidal or homicidal ideation Sensorium/Cognition: Patient is alert and oriented to person, place and month and date and year she knew the president was cristobal but could not tell me any other prior presidents, patient reported to me that she can no longer do her own bills as she forgets to pay them and has been having her do her bills for her, she told me that she has difficulty with her memory and had great difficulty in giving the history. She states that she can no longer cook because it is too difficult for her to do so. Mood/Affect: Patient's mood was pleasant and her affect was slightly blunted Insight/Judgment: Patient's insight and judgment are limited Assessment: Consultation was requested to assess the patient for possible anorexia and depression, when I spoke with the social human services assistants, Vega he discussed with me that it is his concern that the patient needs a guardian. I was unaware of this when I evaluated the patient and did not perform a formal cognitive evaluation on her. Patient states that she has a long history of being treated for depression and anxiety and is currently on Cymbalta 90 mg total per day, trazodone 50 mg twice a day, Xanax he wrote 0.5 mg 3 times a day as needed patient states she takes 0 point 5 in the morning, 0.25 the afternoon and 0 point 5 in the evening. Patient is also on Topamax for her migraine headaches. Patient reports to me that her appetite is poor because after she takes her medications in the morning if she was really hungry she doesn't feel that well afterwards to eat, she also reported that at times it is difficult for her to eat at home because she has no dentures. She states that she and her have been using nutrition supplements at home on a twice daily basis and could not tell me which ones those were. She states that she no longer is able to cook and so microwaves her food and states that she is no longer able to pay her bills and has asked her to assist her with this. Patient did admit to me that she is having difficulties with her memory. Patient was a poor historian having great difficulty giving me historical information regarding her marriages, her prior work history. There is no evidence of anorexia as a formal diagnosis, patient does have a history of depression and anxiety that has been treated since she was 17 years of age and most recently treated by a psychiatrist in [place]. Patient does have evidence of memory difficulties which would make it difficult for her to cook, take care of her bill payment as well as manage her medications. Diagnosis: Major depressive disorder currently in remission by history, anxiety disorder by history, rule out neurocognitive disorder Plan: Patient reports not feeling depressed or anxious and feels that the Cymbalta and Xanax have been beneficial. I see no reason for the patient to be taking trazodone twice daily, as it is extremely sedating as well as lowering blood pressure and would recommend that the patient be given this at bedtime only if in fact she needs that for sleep. Patient is on Xanax which can impair memory and it is difficult to assess whether the patient's difficulties with her memory and performing tasks such as bill payment, cooking are due to her use of Xanax for an extended period of time or if she also has an underlying neurocognitive disorder. Would recommend that slowly over time her Xanax dose be decreased I would recommend a decrease of 25% of the total dose every 2-3 weeks, as this medication can affect memory and functioning. Patient's Cymbalta and melatonin at their current doses are appropriate and I see no need to adjust them. I spoke with Vega the social human services assistants and agree that placement in a rehab facility would be recommended, at this time the patient is reporting difficulties with her memory and ability to pay her bills, do her cooking, or even other ADLs as she stated she needs assistance with most of them. Patient was agreeable to transfer to a rehab facility if she told me this is what the discharge plan was going to be. Would suggest obtaining a guardian as the patient is not able to care for herself without assistance and it is unclear to me if she could make an informed medical decision should that be necessary. I will discontinue the morning dose of trazodone and continue trazodone 50 mg at bedtime but would recommend that this be evaluated at the rehab facility and perhaps he can be discontinued. I would strongly recommend that her Xanax be decreased by my recommendation above, to see if this improves the patient's cognitive functioning. I will sign off the case if there are any further questions or concerns please don't hesitate to contact me 12/16/17 11:54 12/16/17 12:09
[2017-12-16 14:31] VITALS: BP 135/70; RESP 20; TEMP 99.3
[2017-12-16 16:01] VITALS: PULSE 92
[2017-12-16] MEDS ORDERED: traZODone HCL 50 MG TAB PO SCH (21:00)
== END 2017-12-16 20:03 | disposition home health service (06) | DRG 392 ==
LOC: EC 08:03 → 6SEL 10:39 → 4MS4W 12-15 17:07
PROVIDERS: ADMIT Internal Medicine; ATTEND Internal Medicine
DX: A08.4 Viral intestinal infection, unspecified (principal); F33.9 Major depressive disorder, recurrent, unspecified; K82.1 Hydrops of gallbladder; M87.9 Osteonecrosis, unspecified; N17.9 Acute kidney failure, unspecified; B18.2 Chronic viral hepatitis C; D63.8 Anemia in other chronic diseases classified elsewhere; E78.5 Hyperlipidemia, unspecified; E86.0 Dehydration; F17.200 Nicotine dependence, unspecified, uncomplicated; F41.0 Panic disorder [episodic paroxysmal anxiety]; F41.1 Generalized anxiety disorder; G25.81 Restless legs syndrome; G43.909 Migraine, unspecified, not intractable, without status migrainosus; G47.00 Insomnia, unspecified; G47.33 Obstructive sleep apnea (adult) (pediatric); G89.29 Other chronic pain; I08.1 Rheumatic disorders of both mitral and tricuspid valves; I11.9 Hypertensive heart disease without heart failure; I25.10 Atherosclerotic heart disease of native coronary artery without angina pectoris; I25.2 Old myocardial infarction; I71.4 Abdominal aortic aneurysm, without rupture; I72.3 Aneurysm of iliac artery; I73.9 Peripheral vascular disease, unspecified; K21.9 Gastro-esophageal reflux disease without esophagitis; K27.9 Peptic ulcer, site unspecified, unspecified as acute or chronic, without hemorrhage or perforation; K59.00 Constipation, unspecified; Z86.010 Personal history of colon polyps; N32.81 Overactive bladder; N95.0 Postmenopausal bleeding; Z79.82 Long term (current) use of aspirin; Z79.899 Other long term (current) drug therapy; Z82.49 Family history of ischemic heart disease and other diseases of the circulatory system; Z82.5 Family history of asthma and other chronic lower respiratory diseases; Z86.718 Personal history of other venous thrombosis and embolism; Z86.79 Personal history of other diseases of the circulatory system; Z90.710 Acquired absence of both cervix and uterus; Z95.5 Presence of coronary angioplasty implant and graft; Z99.81 Dependence on supplemental oxygen; M54.9 Dorsalgia, unspecified; Z88.6 Allergy status to analgesic agent; Z88.1 Allergy status to other antibiotic agents; Z91.030 Bee allergy status; Z91.041 Radiographic dye allergy status; Z88.5 Allergy status to narcotic agent; Z88.0 Allergy status to penicillin; Z88.2 Allergy status to sulfonamides; Z88.8 Allergy status to other drugs, medicaments and biological substances; Z91.018 Allergy to other foods; J43.9 Emphysema, unspecified; Z87.01 Personal history of pneumonia (recurrent)
CPT/HCPCS: 36415; 71046; 74018; 80053; 81003; 82272; 82550; 82553; 83605; 83690; 83735; 84484; 85025; 85610; 85730; 86850; 86900; 86901; 93005; 93306; 94640; 94760; 96360; 96361; 99285

== ENCOUNTER → 2018-03-27 | Outpatient (CLI) | payer MEDICARE ==
--- NOTE | 2018-04-06 11:54 | MM ---
Reason for exam: screening (asymptomatic). Last mammogram was performed 1 year and 3 months ago. History: Patient is postmenopausal. Physical Findings: A clinical breast exam by your physician is recommended on an annual basis and results should be correlated with mammographic findings. MG 3D Screening Mammo W/Cad Bilateral CC and MLO view(s) were taken. Prior study comparison: December 27, 2016, bilateral MG 3d screening mammo w/cad. September 20, 2015, bilateral MG 3d screening mammo w/cad. The breast tissue is extremely dense which could obscure a lesion on mammography. Stable benign calcifications. No significant changes when compared with prior studies. ASSESSMENT: Benign, BI-RAD 2 RECOMMENDATION: Routine screening mammogram of both breasts in 1 year.
== END | disposition home or self-care (01) ==
LOC: RADMAMWWP 13:13
PROVIDERS: ATTEND Family Medicine
DX: Z12.31 Encounter for screening mammogram for malignant neoplasm of breast (principal)
CPT/HCPCS: 77063; 77067

== ENCOUNTER → 2018-05-26 | Outpatient (CLI) | payer MEDICARE | LOC: LABWHC1 16:14 | DX: D64.9 Anemia, unspecified (principal); R63.4 Abnormal weight loss | CPT/HCPCS: 36415; 82105; 82272 ==

== ENCOUNTER → 2018-06-04 | Outpatient (CLI) | payer MEDICARE ==
--- NOTE | 2018-06-04 11:24 | US ---
EXAMINATION TYPE: US duplex aorta DATE OF EXAM: 06/04/2018 COMPARISON: CT 10/30/2018 CLINICAL HISTORY: 68-year-old female Z95 Presence of cardiac and vascular implants and aortoiliac gra ft in place x 12 years TECHNIQUE: Multiple sonographic images of the abdominal aorta are obtained. FINDINGS: EXAM MEASUREMENTS: Abdominal Aorta: Proximal: 3.1 x 2.9 cm Mid: [place]= 2.8 x 3.1 cm, Beginning at graft= 3.6 x 3.2 cm (versus approximately 3.4 cm wide on 10/30/2017 CT) Distal: [place] vessel= 3.5 x 4.1 cm (versus 4.[address]) Bifurcation: RAMILA= 2.0 x 2.0 cm (versus 2.[address]) CALI: 1.8 x 1.9 cm (versus 2.[address]) [employer] notes: Extensive atherosclerotic changes throughout aorta, ectatic with measurements >3 cm within pilot point vessel/ Graft appears patent from mid aorta to proximal iliacs IMPRESSION: 1. Mildly aneurysmal upper abdominal aorta 3.1 cm. 2. There is aortobiiliac endovascular stent graft. At the mid abdominal aorta at the proximal landing zone, [place] vessel caliber is 4.1 cm (versus 4.4 cm on 10/30/2017 CT). 3. Distal abdominal aorta and pilot point sac measures 4.1 cm (versus 4.[address]). Note that there will be some variability in measurements due to differences in imaging modality. 4. Suspect that the dilatation of the right and left common iliac arteries is underestimated by 1 cm on the left and by 0.3 cm on the right.
== END | disposition home or self-care (01) ==
LOC: RADUSWWP 10:11
PROVIDERS: ATTEND Family Medicine
DX: I71.4 Abdominal aortic aneurysm, without rupture (principal); Z95.828 Presence of other vascular implants and grafts
CPT/HCPCS: 93979

== ENCOUNTER 2018-06-18 15:23 | Emergency (ER) | payer MEDICARE ==
[2018-06-18] MEDS ORDERED: SODIUM CHLORIDE 0.9% 500 ML 500 ML IV STA (15:53)
--- NOTE | 2018-06-18 15:56 | ED ---
General Adult HPI - General Chief complaint: Weakness Stated complaint: in and out of consciousness Source: patient, EMS Mode of arrival: EMS Limitations: no limitations - History of Present Illness Initial comments: Dictation was produced using [employer] dictation software. please excuse any grammatical, word or spelling errors. Chief Complaint: 68-year-old female past medical history of abdominal aortic aneurysm status post graft, coronary artery disease, COPD, GI bleed, liver disease presents with generalized weakness. History of Present Illness: Patient states she's been feeling generally weak for the last 2 or 3 days. States that her symptoms got worse. Patient is a poor historian. States that she feels weak all over her body. States she's been having difficulty with bowel movements. Denies any nausea vomiting. No constitutional symptoms. The ROS documented in this emergency department record has been reviewed and confirmed by me. Those systems with pertinent positive or negative responses have been documented in the HPI. All other systems are other negative and/or noncontributory. - Related Data Home Medications Medication Instructions Recorded Confirmed Atenolol [Tenormin] 12.5 mg PO HS 12/27/13 06/18/18 Sucralfate [Carafate] 1 gm PO [facility] 12/27/13 06/18/18 Pramipexole [Mirapex] 0.125 mg PO HS 09/12/14 06/18/18 Tiotropium 18 Mcg/Puff [Spiriva] 1 cap INHALATION RT-HS 09/12/14 06/18/18 DULoxetine HCL [Cymbalta] 30 mg PO DAILY 07/18/17 06/18/18 DULoxetine HCL [Cymbalta] 60 mg PO HS 07/18/17 06/18/18 Albuterol Nebulized [Ventolin 2.5 mg INHALATION RT-QID PRN 10/11/17 06/18/18 Nebulized] Meclizine [Antivert] 12.5 mg PO Q8H PRN 10/11/17 06/18/18 Calcium Carbonate [Calcium] 600 mg PO BID 12/12/17 06/18/18 Cholecalciferol [Vitamin D3] 1,000 unit PO DAILY 12/12/17 06/18/18 Dexlansoprazole [Dexilant] 60 mg PO DAILY 12/12/17 06/18/18 Fexofenadine HCl 30 mg PO Q12H 12/12/17 06/18/18 Nitroglycerin Sl Tabs [Nitrostat] 0.4 mg SUBLINGUAL Q5M PRN 12/12/17 06/18/18 Oxybutynin Chloride [Ditropan] 5 mg PO BID 12/12/17 06/18/18 Polyethylene Glycol 3350 [Miralax] 17 gm PO DAILY 12/12/17 06/18/18 guaiFENesin [Mucinex] 1,200 mg PO Q12H 12/12/17 06/18/18 Previous Rx's Medication Instructions Recorded Melatonin 5 mg PO HS #30 tablet 02/16/17 Aspirin 81 mg PO DAILY chew 09/02/17 Pravastatin Sodium [Pravachol] 80 mg PO HS #0 tab 09/02/17 Cholestyramine (with Sugar) 4 gm PO BID@1000,1800 #60 packet 12/15/17 [Questran Packet] Famotidine [Pepcid] 20 mg PO DAILY #30 tab 12/15/17 Lisinopril [Zestril] 5 mg PO DAILY #30 tab 12/15/17 ALPRAZolam [Xanax] 0.5 mg PO TID PRN #90 tab 12/16/17 traZODone HCL [Desyrel] 50 mg PO HS #30 tab 12/16/17 Allergies Allergy/AdvReac Type Severity Reaction Status Date / Time naproxen sodium [From Aleve] Allergy Severe Anaphylaxis Verified 06/18/18 16:09 adhesive Allergy Rash/Hives Verified 06/18/18 16:09 cinnamon [Cinnamon] Allergy Dyspnea Verified 06/18/18 16:09 clindamycin Allergy Anaphylaxis Verified 06/18/18 16:09 codeine Allergy Nausea & Verified 06/18/18 16:09 Vomiting gentamicin [Gentamicin] Allergy SWELLING Verified 06/18/18 16:09 OF FACE W/ EYE DROPS paola Allergy Dyspnea Verified 06/18/18 16:09 Iodinated Contrast- Oral and Allergy Dyspnea Verified 06/18/18 16:09 IV Dye latex Allergy Rash/Hives Verified 06/18/18 16:09 levothyroxine sodium Allergy Unknown Verified 06/18/18 16:09 [From Synthroid] losartan Allergy Unknown Verified 06/18/18 16:09 montelukast sodium Allergy Wheezing Verified 06/18/18 16:09 [From Singulair] pantoprazole sodium Allergy Abdominal Verified 06/18/18 16:09 [From Protonix] Pain Penicillins Allergy Rash/Hives Verified 06/18/18 16:09 red dye Allergy Abdominal Verified 06/18/18 16:09 Pain Sulfa (Sulfonamide Allergy Swelling Verified 06/18/18 16:09 Antibiotics) IN MOUTH sulfamethoxazole Allergy swelling Verified 06/18/18 16:09 [From Bactrim] tongue sulfanilamide Allergy Unknown Verified 06/18/18 16:09 trimethoprim [From Bactrim] Allergy Swelling Verified 06/18/18 16:09 venom-honey bee Allergy Dyspnea Verified 06/18/18 16:09 [bee venom (honey bee)] BANDAIDS Allergy Rash/Hives Uncoded 11/28/17 07:28 Dye for gallbladder scan. Allergy Anaphylaxis Uncoded 11/28/17 07:28 tomatoes AdvReac Abdominal Uncoded 11/28/17 07:28 Pain Review of Systems ROS Statement: Those systems with pertinent positive or pertinent negative responses have been documented in the HPI. ROS Other: All systems not noted in ROS Statement are negative. Past Medical History Past Medical History: Asthma, Coronary Artery Disease (CAD), Chest Pain / Angina , COPD, Deep Vein Thrombosis (DVT), GERD/Reflux, GI Bleed, Hypertension, Liver Disease, Myocardial Infarction ([place]), Pneumonia, Respiratory Disorder, Sleep Apnea/CPAP/BIPAP, Vascular Disorder Additional Past Medical History / Comment(s): Aortic aneurysm with stent-being monitored, Takosubu syndrome in 2016, R groin dissection/cardiac cath, recent bacteremia-blood cultures positive for veridans strep-completed antibiotics, bronchitis, home O2 at 3L/NC most of the time, LG without device-stable, DVT R leg, lower GI bleed, hepatitis C with Harvoni treatment, anemia with iron infusions x2, bilateral femoral head avascular necrosis, RLS, migraines, insomnia, constipation, overactive bladder, post menopausal bleed. Last Myocardial Infarction Date:: 07/2017 History of Any Multi-Drug Resistant Organisms: None Reported Past Surgical History: Bladder Surgery, Cholecystectomy, Heart Catheterization With Stent, Hysterectomy, Orthopedic Surgery Additional Past Surgical History / Comment(s): 11/28/17 lap albert, PCI with stent 2010, cardiac cath 07/2017-treat medically, common iliac artery stent 2006 , exploratory lap, liver bx, R foot surgery d/t infection, R shoulder arthroscopic surgery, CAN, EGD, colonoscopy years ago, R leg varicose vein surgery, bladder suspension Past Anesthesia/Blood Transfusion Reactions: No Reported Reaction Date of Last Stent Placement:: 2010 Past Psychological History: Anxiety, Depression, Panic Disorder Smoking Status: Current every day smoker Past Alcohol Use History: None Reported Past Drug Use History: None Reported - Past Family History Brother(s) Family Medical History: Coronary Artery Disease (CAD), Myocardial Infarction ([place] ) Father Additional Family Medical History / Comment(s): FROM CIRRHOSIS OF THE LIVER Mother Family Medical History: COPD Additional Family Medical History / Comment(s): FROM AAA, HAD HX of TB. General Exam - General Exam Comments Initial Comments: PHYSICAL EXAM: General Impression: Alert and oriented x3, not in acute distress HEENT: Normocephalic atraumatic, extra-ocular movements intact, pupils equal and reactive to light bilaterally, dry mucous membranes Cardiovascular: Heart regular rate and rhythm, S1&S2 audible, no murmurs, rubs or gallops Chest: Lungs clear to auscultation bilaterally, no rhonchi, no wheeze, no rales Abdomen: Bowel sounds present, abdomen soft, non-tender, non-distended, no organomegaly, pulsatile abdominal mass Musculoskeletal: Pulses present and equal in all extremities, no peripheral edema Motor: 4-5 weakness of all extremities are symmetrical Neurological: CN II-XII grossly intact, no focal motor or sensory deficits noted Skin: Intact with no visualized rashes Psych: Normal affect and mood Limitations: no limitations Course Vital Signs 06/18/18 06/18/18 15:29 17:30 Pulse Rate 67 65 Respiratory 20 18 Rate Blood Pressure 148/77 148/77 O2 Sat by Pulse 100 100 Oximetry Medical Decision Making - Medical Decision Making ED course: 68-year-old female presents with chief complaint of generalized weakness for 2-3 days. She appears cachectic. Patient appears dry on initial physical examination. Vital signs upon arrival are within acceptable limits.Laboratory evaluation obtained. CBC unremarkable. Coag panel unremarkable. Metabolic panel is negative. No electrolyte derangement. Cardiac enzymes are negative. Patient however does have a TSH of 5.870. Denies any thyroid history. There is reasonably that patient's symptoms could be from hypothyroidism. She has established primary care physician. She states that she can follow up with her PCP who can manage her elevated TSH outpatient. Patient is understandable agreeable to plan. Told to come to the back to the emergency Department with any worsening symptoms. Urinalysis is negative. Patient is understandable and agreeable to plan. She has her daughter at bedside and who is willing to assist patient with her appointment. - Lab Data Result diagrams: 06/18/18 16:36 06/18/18 16:36 Lab Results 06/18/18 06/18/18 06/18/18 Range/Units 16:36 16:36 16:36 WBC 7.5 (3.8-10.6) k/uL RBC 3.77 L (3.80-5.40) m/uL Hgb 11.5 (11.4-16.0) gm/dL Hct 35.6 (34.0-46.0) % MCV 94.5 (80.0-100.0) fL MCH 30.6 (25.0-35.0) pg MCHC 32.4 (31.0-37.0) g/dL RDW 13.8 (11.5-15.5) % Plt Count 132 L (150-450) k/uL Neutrophils % 76 % Lymphocytes % 18 % Monocytes % 4 % Eosinophils % 2 % Basophils % 0 % Neutrophils # 5.7 (1.3-7.7) k/uL Lymphocytes # 1.3 (1.0-4.8) k/uL Monocytes # 0.3 (0-1.0) k/uL Eosinophils # 0.1 (0-0.7) k/uL Basophils # 0.0 (0-0.2) k/uL PT (9.0-12.0) sec INR (<1.2) APTT (22.0-30.0) sec Sodium 139 (137-145) mmol/L Potassium 3.8 (3.5-5.1) mmol/L Chloride 109 H (98-107) mmol/L Carbon Dioxide 23 (22-30) mmol/L Anion Gap 7 mmol/L BUN 20 H (7-17) mg/dL Creatinine 1.07 H (0.52-1.04) mg/dL Est GFR (CKD-EPI)AfAm 61 (>60 ml/min/1.73 sqM) Est GFR (CKD-EPI)NonAf 53 (>60 ml/min/1.73 sqM) Glucose 110 H (74-99) mg/dL Plasma Lactic Acid Aquilino (0.7-2.0) mmol/L Calcium 9.5 (8.4-10.2) mg/dL Phosphorus 4.4 (2.5-4.5) mg/dL Magnesium 1.9 (1.6-2.3) mg/dL Total Bilirubin 0.6 (0.2-1.3) mg/dL AST 27 (14-36) U/L ALT 19 (9-52) U/L Alkaline Phosphatase 76 (38-126) U/L Total Creatine Kinase 48 (30-135) U/L CK-MB (CK-2) 1.1 (0.0-2.4) ng/mL CK-MB (CK-2) Rel Index 2.3 Troponin I <0.012 (0.000-0.034) ng/mL NT-Pro-B Natriuret Pep pg/mL Total Protein 6.9 (6.3-8.2) g/dL Albumin 4.0 (3.5-5.0) g/dL TSH 5.870 H (0.465-4.680) mIU/L Urine Color Urine Appearance (Clear) Urine pH (5.0-8.0) Ur Specific Fletcher (1.001-1.035) Urine Protein (Negative) Urine Glucose (UA) (Negative) Urine Ketones (Negative) Urine Blood (Negative) Urine Nitrite (Negative) Urine Bilirubin (Negative) Urine Urobilinogen (<2.0) mg/dL Ur Leukocyte Esterase (Negative) Urine RBC (0-5) /hpf Urine WBC (0-5) /hpf Ur Squamous Epith Cells (0-4) /hpf Hyaline Casts (0-2) /lpf Urine Mucus (None) /hpf 06/18/18 06/18/18 06/18/18 Range/Units 16:36 16:36 16:36 WBC (3.8-10.6) k/uL RBC (3.80-5.40) m/uL Hgb (11.4-16.0) gm/dL Hct (34.0-46.0) % MCV (80.0-100.0) fL MCH (25.0-35.0) pg MCHC (31.0-37.0) g/dL RDW (11.5-15.5) % Plt Count (150-450) k/uL Neutrophils % % Lymphocytes % % Monocytes % % Eosinophils % % Basophils % % Neutrophils # (1.3-7.7) k/uL Lymphocytes # (1.0-4.8) k/uL Monocytes # (0-1.0) k/uL Eosinophils # (0-0.7) k/uL Basophils # (0-0.2) k/uL PT 10.8 (9.0-12.0) sec INR 1.1 (<1.2) APTT 18.7 L (22.0-30.0) sec Sodium (137-145) mmol/L Potassium (3.5-5.1) mmol/L Chloride (98-107) mmol/L Carbon Dioxide (22-30) mmol/L Anion Gap mmol/L BUN (7-17) mg/dL Creatinine (0.52-1.04) mg/dL Est GFR (CKD-EPI)AfAm (>60 ml/min/1.73 sqM) Est GFR (CKD-EPI)NonAf (>60 ml/min/1.73 sqM) Glucose (74-99) mg/dL Plasma Lactic Acid Aquilino 1.7 (0.7-2.0) mmol/L Calcium (8.4-10.2) mg/dL Phosphorus (2.5-4.5) mg/dL Magnesium (1.6-2.3) mg/dL Total Bilirubin (0.2-1.3) mg/dL AST (14-36) U/L ALT (9-52) U/L Alkaline Phosphatase (38-126) U/L Total Creatine Kinase (30-135) U/L CK-MB (CK-2) (0.0-2.4) ng/mL CK-MB (CK-2) Rel Index Troponin I (0.000-0.034) ng/mL NT-Pro-B Natriuret Pep 1080 pg/mL Total Protein (6.3-8.2) g/dL Albumin (3.5-5.0) g/dL TSH (0.465-4.680) mIU/L Urine Color Urine Appearance (Clear) Urine pH (5.0-8.0) Ur Specific Fletcher (1.001-1.035) Urine Protein (Negative) Urine Glucose (UA) (Negative) Urine Ketones (Negative) Urine Blood (Negative) Urine Nitrite (Negative) Urine Bilirubin (Negative) Urine Urobilinogen (<2.0) mg/dL Ur Leukocyte Esterase (Negative) Urine RBC (0-5) /hpf Urine WBC (0-5) /hpf Ur Squamous Epith Cells (0-4) /hpf Hyaline Casts (0-2) /lpf Urine Mucus (None) /hpf 06/18/18 Range/Units 17:26 WBC (3.8-10.6) k/uL RBC (3.80-5.40) m/uL Hgb (11.4-16.0) gm/dL Hct (34.0-46.0) % MCV (80.0-100.0) fL MCH (25.0-35.0) pg MCHC (31.0-37.0) g/dL RDW (11.5-15.5) % Plt Count (150-450) k/uL Neutrophils % % Lymphocytes % % Monocytes % % Eosinophils % % Basophils % % Neutrophils # (1.3-7.7) k/uL Lymphocytes # (1.0-4.8) k/uL Monocytes # (0-1.0) k/uL Eosinophils # (0-0.7) k/uL Basophils # (0-0.2) k/uL PT (9.0-12.0) sec INR (<1.2) APTT (22.0-30.0) sec Sodium (137-145) mmol/L Potassium (3.5-5.1) mmol/L Chloride (98-107) mmol/L Carbon Dioxide (22-30) mmol/L Anion Gap mmol/L BUN (7-17) mg/dL Creatinine (0.52-1.04) mg/dL Est GFR (CKD-EPI)AfAm (>60 ml/min/1.73 sqM) Est GFR (CKD-EPI)NonAf (>60 ml/min/1.73 sqM) Glucose (74-99) mg/dL Plasma Lactic Acid Aquilino (0.7-2.0) mmol/L Calcium (8.4-10.2) mg/dL Phosphorus (2.5-4.5) mg/dL Magnesium (1.6-2.3) mg/dL Total Bilirubin (0.2-1.3) mg/dL AST (14-36) U/L ALT (9-52) U/L Alkaline Phosphatase (38-126) U/L Total Creatine Kinase (30-135) U/L CK-MB (CK-2) (0.0-2.4) ng/mL CK-MB (CK-2) Rel Index Troponin I (0.000-0.034) ng/mL NT-Pro-B Natriuret Pep pg/mL Total Protein (6.3-8.2) g/dL Albumin (3.5-5.0) g/dL TSH (0.465-4.680) mIU/L Urine Color Light Yellow Urine Appearance Clear (Clear) Urine pH 6.5 (5.0-8.0) Ur Specific Fletcher 1.008 (1.001-1.035) Urine Protein 1+ H (Negative) Urine Glucose (UA) Trace H (Negative) Urine Ketones Negative (Negative) Urine Blood Trace H (Negative) Urine Nitrite Negative (Negative) Urine Bilirubin Negative (Negative) Urine Urobilinogen <2.0 (<2.0) mg/dL Ur Leukocyte Esterase Negative (Negative) Urine RBC 1 (0-5) /hpf Urine WBC 4 (0-5) /hpf Ur Squamous Epith Cells 1 (0-4) /hpf Hyaline Casts 4 H (0-2) /lpf Urine Mucus Rare H (None) /hpf Disposition Clinical Impression: Hypothyroidism Disposition: HOME SELF-CARE Condition: Good Is patient prescribed a controlled substance at d/c from ED?: No Referrals: Jenaro Colbert DO [Primary Care Provider] - 1-2 days Time of Disposition: 18:09
--- NOTE | 2018-06-18 16:57 | XR ---
EXAMINATION TYPE: XR chest 2V DATE OF EXAM: 06/18/2018 COMPARISON: 12/12/2017 HISTORY: Cough weakness TECHNIQUE: Frontal and lateral views of the chest are obtained. FINDINGS: There is no heart failure nor confluent pneumonic infiltrate. There is pulmonary hyperinfl ation. Thoracic aorta is atheromatous. There is cervical spine fusion surgery. Thoracic spine appears intact. I see no compression fracture. IMPRESSION: COPD. No acute lung disease. Atheromatous aorta. No change compared to old exam.
[2018-06-18 16:58] LABS: Basophils % (A) 0 %; Eosinophils # (A) 0.1 k/uL (0-0.7); Eosinophils % (A) 2 %; HCT 35.6 % (34.0-46.0); HGB 11.5 gm/dL (11.4-16.0); Lymphocytes # (A) 1.3 k/uL (1.0-4.8); Lymphocytes % (A) 18 %; MCH 30.6 pg (25.0-35.0); MCHC 32.4 g/dL (31.0-37.0); MCV 94.5 fL (80.0-100.0); Mean Platelet Volume 7.3; Monocytes # (A) 0.3 k/uL (0-1.0); Monocytes % (A) 4 %; Neutrophils # (A) 5.7 k/uL (1.3-7.7); Neutrophils % (A) 76 %; Platelet Count 132 k/uL (150-450); RBC 3.77 m/uL (3.80-5.40); RDW 13.8 % (11.5-15.5); WBC 7.5 k/uL (3.8-10.6)
[2018-06-18 17:10] LABS: Calcium 9.5 mg/dL (8.4-10.2); Magnesium 1.9 mg/dL (1.6-2.3); Phosphorus 4.4 mg/dL (2.5-4.5); Potassium 3.8 mmol/L (3.5-5.1); Total Bilirubin 0.6 mg/dL (0.2-1.3); Total Protein 6.9 g/dL (6.3-8.2)
[2018-06-18 17:11] LABS: Creatine Kinase 48 U/L (30-135)
[2018-06-18 17:15] LABS: INR 1.1 (<1.2); Prothrombin Time 10.8 sec (9.0-12.0)
[2018-06-18 17:19] LABS: Partial Thromboplastin Time 18.7 sec (22.0-30.0)
[2018-06-18 17:38] LABS: Creatine Kinase MB 1.1 ng/mL (0.0-2.4); Troponin I <0.012 ng/mL (0.000-0.034)
[2018-06-18 17:58] VITALS: RESP 18
[2018-06-18 18:02] LABS: Appearance,Urine Clear (Clear); Bilirubin,Urine Negative (Negative); Blood,Urine Trace (Negative); Color,Urine Light Yellow; Glucose,Urine (UA) Trace (Negative); Hyaline Casts,Urine 4 /lpf (0-2); Ketones,Urine Negative (Negative); Leukocyte Esterase,Urine Negative (Negative); Mucus,Urine Rare /hpf; Nitrite,Urine Negative (Negative); PH, Urine 6.5 (5.0-8.0); Protein,Urine 1+ (Negative); RBC,Urine 1 /hpf (0-5); Specific Gravity,Urine 1.008 (1.001-1.035); Squamous Epithelial Cell,Urine 1 /hpf (0-4); Urobilinogen,Urine <2.0 mg/dL (<2.0); WBC,Urine 4 /hpf (0-5)
[2018-06-18 18:39] VITALS: BP 153/78; PULSE 74; TEMP 98.6
== END 2018-06-18 18:35 | disposition home or self-care (01) ==
LOC: EC 15:23
DX: E03.9 Hypothyroidism, unspecified (principal); J44.9 Chronic obstructive pulmonary disease, unspecified; I25.10 Atherosclerotic heart disease of native coronary artery without angina pectoris; K21.9 Gastro-esophageal reflux disease without esophagitis; I10 Essential (primary) hypertension; I25.2 Old myocardial infarction; G25.81 Restless legs syndrome; F41.9 Anxiety disorder, unspecified; F32.9 Major depressive disorder, single episode, unspecified; F17.200 Nicotine dependence, unspecified, uncomplicated; Z86.718 Personal history of other venous thrombosis and embolism; Z90.49 Acquired absence of other specified parts of digestive tract; Z95.5 Presence of coronary angioplasty implant and graft; Z98.890 Other specified postprocedural states; Z79.899 Other long term (current) drug therapy; Z88.0 Allergy status to penicillin; Z88.1 Allergy status to other antibiotic agents; Z88.2 Allergy status to sulfonamides; Z88.5 Allergy status to narcotic agent; Z88.6 Allergy status to analgesic agent; Z88.8 Allergy status to other drugs, medicaments and biological substances; Z91.018 Allergy to other foods; Z91.030 Bee allergy status; Z91.040 Latex allergy status; Z91.041 Radiographic dye allergy status; Z91.048 Other nonmedicinal substance allergy status
CPT/HCPCS: 36415; 71046; 80053; 81001; 82550; 82553; 83605; 83735; 83880; 84100; 84443; 84484; 85025; 85610; 85730; 87086; 93005; 96360; 99285

== ENCOUNTER 2018-10-08 13:05 | Emergency (ER) | payer MEDICARE ==
[2018-10-08 13:36] VITALS: RESP 18
[2018-10-08] MEDS ORDERED: SODIUM CHLORIDE 0.9% 1,000 ML IV STA (13:42)
[2018-10-08 13:57] LABS: Basophils % (A) 0 %; Eosinophils # (A) 0.3 k/uL (0-0.7); Eosinophils % (A) 4 %; HCT 37.6 % (34.0-46.0); HGB 12.3 gm/dL (11.4-16.0); Lymphocytes % (A) 27 %; MCH 30.9 pg (25.0-35.0); MCHC 32.7 g/dL (31.0-37.0); MCV 94.7 fL (80.0-100.0); Monocytes # (A) 0.3 k/uL (0-1.0); Monocytes % (A) 4 %; Neutrophils # (A) 4.9 k/uL (1.3-7.7); Neutrophils % (A) 65 %; Platelet Count 153 k/uL (150-450); RBC 3.98 m/uL (3.80-5.40); RDW 14.1 % (11.5-15.5); WBC 7.6 k/uL (3.8-10.6)
[2018-10-08 14:08] LABS: Albumin 4.4 g/dL (3.5-5.0); Calcium 9.8 mg/dL (8.4-10.2); Magnesium 1.7 mg/dL (1.6-2.3); Phosphorus 4.1 mg/dL (2.5-4.5); Total Protein 7.5 g/dL (6.3-8.2)
--- NOTE | 2018-10-08 14:08 | ED ---
Weakness HPI - General Chief complaint: Weakness Stated complaint: abdominal pain Time Seen by Provider: 10/08/18 13:34 Source: patient, EMS, RN notes reviewed Mode of arrival: EMS Limitations: no limitations - History of Present Illness Initial comments: 68-year-old female presents emergency department via EMS with multiple complaints. Patient's primary complaint fatigue and weakness. Patient states that she just feels dehydrated as she's been having diarrhea. She also complained of mild left-sided abdominal pain no chest pain or shortness breath this time. Patient states she does not eat or drink much. Patient states she knows she is very frail and was less than 100 pounds. Patient states that she does have severe COPD and continues to smoke. Patient denies any history of cancer no dysuria no hematuria at this time. Patient states she has had a history of diverticulitis. - Related Data Home Medications Medication Instructions Recorded Confirmed Atenolol [Tenormin] 12.5 mg PO HS 12/27/13 10/08/18 Sucralfate [Carafate] 1 gm PO AC-TID 12/27/13 10/08/18 Pramipexole [Mirapex] 0.125 mg PO HS 09/12/14 10/08/18 Tiotropium 18 Mcg/Puff [Spiriva] 1 cap INHALATION RT-BID 09/12/14 10/08/18 DULoxetine HCL [Cymbalta] 60 mg PO BID 07/18/17 10/08/18 Cholecalciferol [Vitamin D3] 1,000 unit PO DAILY 12/12/17 10/08/18 Dexlansoprazole [Dexilant] 60 mg PO DAILY 12/12/17 10/08/18 Nitroglycerin Sl Tabs [Nitrostat] 0.4 mg SUBLINGUAL Q5M PRN 12/12/17 10/08/18 guaiFENesin [Mucinex] 1,200 mg PO Q12H 12/12/17 10/08/18 Albuterol Inhaler [Ventolin Hfa 1 - 2 puff INHALATION RT-Q6H PRN 10/08/18 Inhaler] Butalb/APAP/Caff 50-325-40Mg 1 - 2 tab PO Q8H PRN 10/08/18 10/08/18 [Fioricet 50-325-40] Calcium Carbonate/Vitamin D3 1 tab PO BID 10/08/18 10/08/18 [Calcium 600-Vit D3 400 Caplet] Fesoterodine Fumarate [Toviaz] 8 mg PO DAILY 10/08/18 10/08/18 Ipratropium-Albuterol Nebulize 3 ml INHALATION RT-QID 10/08/18 10/08/18 [Duoneb 0.5 mg-3 mg/3 ml Soln] Silver Sulfadiazine [SSD 1% Cream] 1 applic TOPICAL DAILY 10/08/18 10/08/18 Topiramate [Topamax] 50 mg PO BID 10/08/18 10/08/18 cloNIDine HCL [Catapres] 0.1 mg PO Q8H PRN 10/08/18 10/08/18 cycloSPORINE [Restasis] 1 drop BOTH EYES BID 10/08/18 10/08/18 Previous Rx's Medication Instructions Recorded Aspirin 81 mg PO DAILY chew 09/02/17 Pravastatin Sodium [Pravachol] 80 mg PO HS #0 tab 09/02/17 ALPRAZolam [Xanax] 0.5 mg PO TID PRN #90 tab 12/16/17 Dicyclomine [Bentyl] 20 mg PO TID #30 tablet 10/08/18 Allergies Allergy/AdvReac Type Severity Reaction Status Date / Time naproxen sodium [From Aleve] Allergy Severe Anaphylaxis Verified 10/08/18 15:37 adhesive Allergy Rash/Hives Verified 10/08/18 15:37 cinnamon [Cinnamon] Allergy Dyspnea Verified 10/08/18 15:37 clindamycin Allergy Anaphylaxis Verified 10/08/18 15:37 codeine Allergy Nausea & Verified 10/08/18 15:37 Vomiting gentamicin [Gentamicin] Allergy SWELLING Verified 10/08/18 15:37 OF FACE W/ EYE DROPS paola Allergy Dyspnea Verified 10/08/18 15:37 Iodinated Contrast- Oral and Allergy Dyspnea Verified 10/08/18 15:37 IV Dye latex Allergy Rash/Hives Verified 10/08/18 15:37 levothyroxine sodium Allergy Unknown Verified 10/08/18 15:37 [From Synthroid] losartan Allergy Unknown Verified 10/08/18 15:37 montelukast sodium Allergy Wheezing Verified 10/08/18 15:37 [From Singulair] pantoprazole sodium Allergy Abdominal Verified 10/08/18 15:37 [From Protonix] Pain Penicillins Allergy Rash/Hives Verified 10/08/18 15:37 red dye Allergy Abdominal Verified 10/08/18 15:37 Pain Sulfa (Sulfonamide Allergy Swelling Verified 10/08/18 15:37 Antibiotics) IN MOUTH sulfamethoxazole Allergy swelling Verified 10/08/18 15:37 [From Bactrim] tongue sulfanilamide Allergy Unknown Verified 10/08/18 15:37 trimethoprim [From Bactrim] Allergy Swelling Verified 10/08/18 15:37 venom-honey bee Allergy Dyspnea Verified 10/08/18 15:37 [bee venom (honey bee)] BANDAIDS Allergy Rash/Hives Uncoded 10/08/18 13:29 Dye for gallbladder scan. Allergy Anaphylaxis Uncoded 10/08/18 13:29 tomatoes AdvReac Abdominal Uncoded 10/08/18 13:29 Pain Review of Systems ROS Statement: Those systems with pertinent positive or pertinent negative responses have been documented in the HPI. ROS Other: All systems not noted in ROS Statement are negative. Past Medical History Past Medical History: Asthma, Coronary Artery Disease (CAD), Chest Pain / Angina , COPD, Deep Vein Thrombosis (DVT), GERD/Reflux, GI Bleed, Hypertension, Liver Disease, Myocardial Infarction (NV), Pneumonia, Respiratory Disorder, Sleep Apnea/CPAP/BIPAP, Vascular Disorder Additional Past Medical History / Comment(s): Aortic aneurysm with stent-being monitored, Takosubu syndrome in 2016, R groin dissection/cardiac cath, recent bacteremia-blood cultures positive for veridans strep-completed antibiotics, bronchitis, home O2 at 3L/NC most of the time, LG without device-stable, DVT R leg, lower GI bleed, hepatitis C with Harvoni treatment, anemia with iron infusions x2, bilateral femoral head avascular necrosis, RLS, migraines, insomnia, constipation, overactive bladder, post menopausal bleed. Last Myocardial Infarction Date:: 07/2017 History of Any Multi-Drug Resistant Organisms: None Reported Past Surgical History: Bladder Surgery, Cholecystectomy, Heart Catheterization With Stent, Hysterectomy, Orthopedic Surgery Additional Past Surgical History / Comment(s): 11/28/17 lap albert, PCI with stent 2010, cardiac cath 07/2017-treat medically, common iliac artery stent 2005 , exploratory lap, liver bx, R foot surgery d/t infection, R shoulder arthroscopic surgery, CAN, EGD, colonoscopy years ago, R leg varicose vein surgery, bladder suspension Past Anesthesia/Blood Transfusion Reactions: No Reported Reaction Date of Last Stent Placement:: 2010 Past Psychological History: Anxiety, Depression, Panic Disorder Smoking Status: Current every day smoker Past Alcohol Use History: None Reported Past Drug Use History: None Reported - Past Family History Brother(s) Family Medical History: Coronary Artery Disease (CAD), Myocardial Infarction (NV ) Father Additional Family Medical History / Comment(s): FROM CIRRHOSIS OF THE LIVER Mother Family Medical History: COPD Additional Family Medical History / Comment(s): FROM AAA, HAD HX of TB. General Exam Limitations: no limitations General appearance: alert, in no apparent distress Head exam: Present: atraumatic, normocephalic, normal inspection Eye exam: Present: normal appearance, PERRL, EOMI. Absent: scleral icterus, conjunctival injection, periorbital swelling ENT exam: Present: normal oropharynx, mucous membranes dry. Absent: mucous membranes moist Neck exam: Present: normal inspection, full ROM. Absent: tenderness, meningismus, lymphadenopathy Respiratory exam: Present: normal lung sounds bilaterally. Absent: respiratory distress, wheezes, rales, rhonchi, stridor Cardiovascular Exam: Present: regular rate, normal rhythm, normal heart sounds. Absent: systolic murmur, diastolic murmur, rubs, gallop, clicks GI/Abdominal exam: Present: soft, tenderness (Mild left-sided), normal bowel sounds. Absent: distended, guarding, rebound, rigid Back exam: Absent: CVA tenderness (R), CVA tenderness (L) Neurological exam: Present: alert, oriented X3, CN II-XII intact, reflexes normal. Absent: motor sensory deficit Skin exam: Present: warm, dry, intact, normal color. Absent: rash Course Vital Signs 10/08/18 10/08/18 10/08/18 13:29 15:00 16:00 Temperature 99.1 F Pulse Rate 95 70 79 Respiratory 18 18 18 Rate Blood Pressure 104/75 161/59 168/76 O2 Sat by Pulse 99 100 99 Oximetry EKG Findings - EKG Comments: EKG Findings:: EKG performed at 13:30 normal sinus rhythm with rate of 89 ND 148 QRS 86 QTC/QTC 382/464 Medical Decision Making - Medical Decision Making 68-year-old female presents emergency Department for generalized weakness, diarrhea. Patient's found to be mildly dehydrated. Patient was given IV fluids and has improved at this time. Patient has underlying GERD and IBS. Patient will be discharged with Bentyl. Patient has a follow-up appointment with Dr. Moy and return parameters were discussed. - Lab Data Result diagrams: 10/08/18 13:38 10/08/18 13:38 Lab Results 10/08/18 10/08/18 10/08/18 Range/Units 13:38 13:38 13:38 WBC 7.6 (3.8-10.6) k/uL RBC 3.98 (3.80-5.40) m/uL Hgb 12.3 (11.4-16.0) gm/dL Hct 37.6 (34.0-46.0) % MCV 94.7 (80.0-100.0) fL MCH 30.9 (25.0-35.0) pg MCHC 32.7 (31.0-37.0) g/dL RDW 14.1 (11.5-15.5) % Plt Count 153 (150-450) k/uL Neutrophils % 65 % Lymphocytes % 27 % Monocytes % 4 % Eosinophils % 4 % Basophils % 0 % Neutrophils # 4.9 (1.3-7.7) k/uL Lymphocytes # 2.0 (1.0-4.8) k/uL Monocytes # 0.3 (0-1.0) k/uL Eosinophils # 0.3 (0-0.7) k/uL Basophils # 0.0 (0-0.2) k/uL PT (9.0-12.0) sec INR (<1.2) APTT (22.0-30.0) sec Sodium 141 (137-145) mmol/L Potassium 4.8 (3.5-5.1) mmol/L Chloride 109 H (98-107) mmol/L Carbon Dioxide 22 (22-30) mmol/L Anion Gap 10 mmol/L BUN 26 H (7-17) mg/dL Creatinine 1.26 H (0.52-1.04) mg/dL Est GFR (CKD-EPI)AfAm 50 (>60 ml/min/1.73 sqM) Est GFR (CKD-EPI)NonAf 43 (>60 ml/min/1.73 sqM) Glucose 130 H (74-99) mg/dL Plasma Lactic Acid [place] (0.7-2.0) mmol/L Calcium 9.8 (8.4-10.2) mg/dL Phosphorus 4.1 (2.5-4.5) mg/dL Magnesium 1.7 (1.6-2.3) mg/dL Total Bilirubin 1.0 (0.2-1.3) mg/dL AST 32 (14-36) U/L ALT 22 (9-52) U/L Alkaline Phosphatase 60 (38-126) U/L Total Creatine Kinase 63 (30-135) U/L CK-MB (CK-2) 1.6 (0.0-2.4) ng/mL CK-MB (CK-2) Rel Index 2.5 Troponin I 0.020 (0.000-0.034) ng/mL Total Protein 7.5 (6.3-8.2) g/dL Albumin 4.4 (3.5-5.0) g/dL Urine Color Urine Appearance (Clear) Urine pH (5.0-8.0) Ur Specific [place] (1.001-1.035) Urine Protein (Negative) Urine Glucose (UA) (Negative) Urine Ketones (Negative) Urine Blood (Negative) Urine Nitrite (Negative) Urine Bilirubin (Negative) Urine Urobilinogen (<2.0) mg/dL Ur Leukocyte Esterase (Negative) Urine RBC (0-5) /hpf Urine WBC (0-5) /hpf Ur Squamous Epith Cells (0-4) /hpf Urine Bacteria (None) /hpf Hyaline Casts (0-2) /lpf Urine Mucus (None) /hpf 10/08/18 10/08/18 10/08/18 Range/Units 13:38 13:38 16:43 WBC (3.8-10.6) k/uL RBC (3.80-5.40) m/uL Hgb (11.4-16.0) gm/dL Hct (34.0-46.0) % MCV (80.0-100.0) fL MCH (25.0-35.0) pg MCHC (31.0-37.0) g/dL RDW (11.5-15.5) % Plt Count (150-450) k/uL Neutrophils % % Lymphocytes % % Monocytes % % Eosinophils % % Basophils % % Neutrophils # (1.3-7.7) k/uL Lymphocytes # (1.0-4.8) k/uL Monocytes # (0-1.0) k/uL Eosinophils # (0-0.7) k/uL Basophils # (0-0.2) k/uL PT 10.9 (9.0-12.0) sec INR 1.0 (<1.2) APTT 24.0 (22.0-30.0) sec Sodium (137-145) mmol/L Potassium (3.5-5.1) mmol/L Chloride (98-107) mmol/L Carbon Dioxide (22-30) mmol/L Anion Gap mmol/L BUN (7-17) mg/dL Creatinine (0.52-1.04) mg/dL Est GFR (CKD-EPI)AfAm (>60 ml/min/1.73 sqM) Est GFR (CKD-EPI)NonAf (>60 ml/min/1.73 sqM) Glucose (74-99) mg/dL Plasma Lactic Acid [place] 1.5 (0.7-2.0) mmol/L Calcium (8.4-10.2) mg/dL Phosphorus (2.5-4.5) mg/dL Magnesium (1.6-2.3) mg/dL Total Bilirubin (0.2-1.3) mg/dL AST (14-36) U/L ALT (9-52) U/L Alkaline Phosphatase (38-126) U/L Total Creatine Kinase (30-135) U/L CK-MB (CK-2) (0.0-2.4) ng/mL CK-MB (CK-2) Rel Index Troponin I (0.000-0.034) ng/mL Total Protein (6.3-8.2) g/dL Albumin (3.5-5.0) g/dL Urine Color Yellow Urine Appearance Clear (Clear) Urine pH 6.0 (5.0-8.0) Ur Specific [place] 1.008 (1.001-1.035) Urine Protein 1+ H (Negative) Urine Glucose (UA) Negative (Negative) Urine Ketones 1+ H (Negative) Urine Blood Negative (Negative) Urine Nitrite Negative (Negative) Urine Bilirubin Negative (Negative) Urine Urobilinogen <2.0 (<2.0) mg/dL Ur Leukocyte Esterase Negative (Negative) Urine RBC 1 (0-5) /hpf Urine WBC 3 (0-5) /hpf Ur Squamous Epith Cells <1 (0-4) /hpf Urine Bacteria Rare H (None) /hpf Hyaline Casts 4 H (0-2) /lpf Urine Mucus Rare H (None) /hpf Disposition Clinical Impression: Weakness, Mild dehydration, IBS (irritable bowel syndrome) Disposition: HOME SELF-CARE Condition: Stable Instructions (If sedation given, give patient instructions): Acute Diarrhea (ED ), Dehydration (ED) Additional Instructions: Please return to the Emergency Department if symptoms worsen or any other concerns. Prescriptions: Dicyclomine [Bentyl] 20 mg PO TID #30 tablet Is patient prescribed a controlled substance at d/c from ED?: No Referrals: Jenaro Colbert DO [Primary Care Provider] - 1-2 days Time of Disposition: 17:47
[2018-10-08 14:09] LABS: Potassium 4.8 mmol/L (3.5-5.1)
[2018-10-08 14:19] LABS: Prothrombin Time 10.9 sec (9.0-12.0)
[2018-10-08 14:34] LABS: Creatine Kinase MB 1.6 ng/mL (0.0-2.4); Troponin I 0.02 ng/mL (0.000-0.034)
--- NOTE | 2018-10-08 14:57 | XR ---
EXAMINATION TYPE: XR chest 2V DATE OF EXAM: 10/08/2018 COMPARISON: 06/18/2018 HISTORY: Shortness of breath TECHNIQUE: Frontal and lateral views of the chest are obtained. FINDINGS: Scattered senescent parenchymal changes noted. Hyperinflation compatible with COPD. No evidence for infiltrate. No evidence for atelectasis. Heart size is stable. Mediastinal structures are stable and grossly unremarkable. No evidence for hilar prominence. Degenerative changes dorsal spine. IMPRESSION: 1. No evidence for acute pulmonary disease.
--- NOTE | 2018-10-08 15:04 | XR ---
EXAMINATION TYPE: XR KUB DATE OF EXAM: 10/08/2018 COMPARISON: NONE HISTORY: Pain TECHNIQUE: Single supine KUB image of the abdomen is obtained FINDINGS: Small bowel demonstrates no evidence for dilatation or air fluid levels. Gas and fecal material is seen in non-distended colon. No convincing evidence for pneumoperitoneum. No unusual calcifications. The lung bases are clear. Aortic stent graft is noted to be in place. The osseous structures are intact. IMPRESSION: 1. Overall nonobstructive bowel gas pattern.
[2018-10-08] MEDS ORDERED: SODIUM CHLORIDE 0.9% 1,000 ML IV ONE (16:39)
[2018-10-08 16:59] LABS: Appearance,Urine Clear (Clear); Bacteria,Urine Rare /hpf; Bilirubin,Urine Negative (Negative); Blood,Urine Negative (Negative); Color,Urine Yellow; Glucose,Urine (UA) Negative (Negative); Hyaline Casts,Urine 4 /lpf (0-2); Ketones,Urine 1+ (Negative); Leukocyte Esterase,Urine Negative (Negative); Mucus,Urine Rare /hpf; Nitrite,Urine Negative (Negative); Protein,Urine 1+ (Negative); RBC,Urine 1 /hpf (0-5); Specific Gravity,Urine 1.008 (1.001-1.035); Squamous Epithelial Cell,Urine <1 /hpf (0-4); Urobilinogen,Urine <2.0 mg/dL (<2.0); WBC,Urine 3 /hpf (0-5)
[2018-10-08 18:18] VITALS: BP 153/72; PULSE 69; TEMP 98
== END 2018-10-08 18:18 | disposition home or self-care (01) ==
LOC: EC 13:05
DX: K58.9 Irritable bowel syndrome, unspecified (principal); E86.0 Dehydration; R53.1 Weakness; K21.9 Gastro-esophageal reflux disease without esophagitis; I25.119 Atherosclerotic heart disease of native coronary artery with unspecified angina pectoris; J44.9 Chronic obstructive pulmonary disease, unspecified; I10 Essential (primary) hypertension; I25.2 Old myocardial infarction; Z86.718 Personal history of other venous thrombosis and embolism; Z86.19 Personal history of other infectious and parasitic diseases; D64.9 Anemia, unspecified; F32.9 Major depressive disorder, single episode, unspecified; F41.0 Panic disorder [episodic paroxysmal anxiety]; G43.909 Migraine, unspecified, not intractable, without status migrainosus; F17.200 Nicotine dependence, unspecified, uncomplicated; Z79.899 Other long term (current) drug therapy; Z88.1 Allergy status to other antibiotic agents; Z91.018 Allergy to other foods; Z88.6 Allergy status to analgesic agent; Z91.048 Other nonmedicinal substance allergy status; Z91.041 Radiographic dye allergy status; Z91.040 Latex allergy status; Z88.2 Allergy status to sulfonamides; Z88.0 Allergy status to penicillin; Z91.030 Bee allergy status; Z91.09 Other allergy status, other than to drugs and biological substances; Z88.8 Allergy status to other drugs, medicaments and biological substances; Z95.5 Presence of coronary angioplasty implant and graft; Z90.49 Acquired absence of other specified parts of digestive tract
CPT/HCPCS: 36415; 71046; 74018; 80053; 81001; 82550; 82553; 83605; 83735; 84100; 84484; 85025; 85610; 85730; 93005; 96360; 96361; 99285

== ENCOUNTER 2018-11-05 10:52 | Day surgery (SDC) | payer MEDICARE ==
[2018-11-04 08:58] VITALS: BMI 15.6
[~2018-11-05 10:52] MED LIST changes: -DEXAMETHASONE SOD PHOSPHATE 10 MG/ML 1 ML VIAL IV ONE; -HEPARIN SODIUM,PORCINE 5,000 UNIT/ML 1 ML VIAL SQ ONE; +LIDOCAINE 1% 20 ML VIAL (10MG/ML) FOR IV START INTRADERMA PRN; -MIDAZOLAM 2 MG/2 ML VIAL IV PRN; -ONDANSETRON 4 MG/2 ML VIAL IVP ONE; -SCOPOLAMINE 1.5MG/72HR PATCH TRANSDERM ONE; -ceFAZolin IN SWFI 2 GM/20 ML SYRINGE IVP ONE; -fentaNYL (PF) 50 MCG/ML 2 ML AMP IV PRN
[2018-11-05 11:11] VITALS: TEMP 97.4
[2018-11-05] MEDS ORDERED: PROPOFOL 10 MG/ML 20 ML VIAL IV ONE (12:33)
[2018-11-05 13:19] VITALS: RESP 18
--- NOTE | 2018-11-05 13:51 | P.PCN ---
Date of Procedure: 11/05/18 Procedure(s) Performed: Procedure: 1. Esophagogastroduodenoscopy and biopsy. 2. Incomplete colonoscopy with random biopsy. Preoperative diagnosis: Abdominal pain and intermittent diarrhea. Postoperative diagnosis: 1. Very small sliding hiatal hernia with no obvious esophagitis or complicated reflux disease. 2. Mild antral gastritis. 3. Poor colon preparation with no obvious pathology noted in the areas examined to around the proximal transverse colon. 4. Biopsies obtained from the duodenum, antrum, esophagus and randomly from the colon. Preparation: HalfLytely prep. Sedation: Was provided by anesthesia. Brief clinical history: The patient is a 68-year-old female who was evaluated in the office earlier this month because of abdominal pain and intermittent diarrhea. The patient was seen in the emergency room last month and was recommended endoscopic evaluation. She had a prior upper endoscopy and colonoscopy in 2016 that showed adenomatous polyps and a segment of ischemic colitis. Procedure: With the patient on her left lateral decubitus position and after informed consent and adequate sedation, I passed the Olympus-GIF H 190 video upper endoscope through the cricopharyngeus down the esophagus. There was a very small sliding hiatal hernia but no obvious esophagitis or complicated reflux disease. The endoscope was then passed into the stomach which was insufflated with air and inspected in detail including the retroflex view in the cardia. There was some mottling and erythema in the antrum but no ulcers or erosions. Pyloric channel, duodenal bulb, post bulbar area and descending duodenum appeared within normal limits. I obtained biopsies from the duodenum, antrum and esophagus then the endoscope was withdrawn and I proceeded to perform the colonoscopy. Perianal area did not show any fissures or fistulas. There were no masses felt on digital rectal examination. The Olympus CFH 190L video colonoscope was then inserted in the rectum and the usual fashion and advanced. Unfortunately, the preparation was poor. I was able to advance the endoscope to around the proximal transverse colon. Further advancement was not possible because of the poor preparation. In the areas examined, the mucosa appeared healthy and there was no obvious colitis, obstruction or significant polyps. I obtained random biopsy from the colon then the endoscope was withdrawn. The patient tolerated the procedure well. Plan: The patient was reassured. Will await biopsy results and make further plans based on her course. Meanwhile, we will advise symptomatic treatment. I would keep you updated on her progress.
[2018-11-05 14:26] VITALS: BP 177/85; PULSE 61
== END 2018-11-05 14:21 | disposition home or self-care (01) ==
LOC: ORWHC2ENDO 10:52
DX: K29.50 Unspecified chronic gastritis without bleeding (principal); K44.9 Diaphragmatic hernia without obstruction or gangrene; K57.30 Diverticulosis of large intestine without perforation or abscess without bleeding; J44.9 Chronic obstructive pulmonary disease, unspecified; I25.10 Atherosclerotic heart disease of native coronary artery without angina pectoris; I73.9 Peripheral vascular disease, unspecified; K21.9 Gastro-esophageal reflux disease without esophagitis; I25.2 Old myocardial infarction; G47.33 Obstructive sleep apnea (adult) (pediatric); I10 Essential (primary) hypertension; Z88.5 Allergy status to narcotic agent; Z88.6 Allergy status to analgesic agent; Z88.2 Allergy status to sulfonamides; Z88.0 Allergy status to penicillin; Z88.8 Allergy status to other drugs, medicaments and biological substances; Z86.010 Personal history of colon polyps; Z91.041 Radiographic dye allergy status; Z79.899 Other long term (current) drug therapy
CPT/HCPCS: 88305; 45380; 43239; J2704

== ENCOUNTER → 2018-12-16 | Outpatient (CLI) | payer MEDICARE ==
--- NOTE | 2018-12-17 10:46 | XR ---
EXAMINATION TYPE: XR Hip Bilateral Complete DATE OF EXAM: 12/16/2018 COMPARISON: None HISTORY: M 25.552 TECHNIQUE: Two-view bilateral hips, AP pelvis FINDINGS: Femoral heads articulate with the acetabulum. Joint spaces appear preserved. No acute fract ures or dislocations are evident Note is made of vascular calcification. Surgical clips are within the inguinal regions bilaterally. T here is moderate fecal retention throughout the pelvis on the AP pelvis supplemental image. IMPRESSION: 1. No acute osseous abnormality bilateral hips.
== END | disposition home or self-care (01) ==
LOC: RADXRMAIN 17:15
PROVIDERS: ATTEND Family Medicine
DX: M25.551 Pain in right hip (principal); M25.552 Pain in left hip
CPT/HCPCS: 73521

== ENCOUNTER 2019-02-14 22:01 | Inpatient (IN) | payer MEDICARE ==
[2019-02-14] MEDS ORDERED: GLUCAGON 1 MG/ML VIAL IVP STA (22:39)
[2019-02-14] MEDS ORDERED: ONDANSETRON 4 MG/2 ML VIAL IVP STA (22:39)
[2019-02-14] MEDS ORDERED: ATENOLOL 25 MG TAB PO STA (23:02)
[2019-02-14 23:03] LABS: Basophils % (A) 0 %; Eosinophils # (A) 0.5 k/uL (0-0.7); Eosinophils % (A) 7 %; HCT 30.9 % (34.0-46.0); HGB 9.9 gm/dL (11.4-16.0); Lymphocytes # (A) 2.1 k/uL (1.0-4.8); Lymphocytes % (A) 30 %; MCH 30.1 pg (25.0-35.0); MCHC 32.1 g/dL (31.0-37.0); MCV 93.6 fL (80.0-100.0); Mean Platelet Volume 7.1; Monocytes # (A) 0.3 k/uL (0-1.0); Monocytes % (A) 5 %; Neutrophils # (A) 3.8 k/uL (1.3-7.7); Neutrophils % (A) 56 %; Platelet Count 126 k/uL (150-450); RDW 14.2 % (11.5-15.5); WBC 6.8 k/uL (3.8-10.6)
--- NOTE | 2019-02-14 23:16 | ED ---
General Adult HPI - General Source: patient, EMS Mode of arrival: EMS Limitations: no limitations <Claudia Sierra - Last Filed: 02/14/19 23:13> <Ligia Garza - Last Filed: 02/15/19 03:08> - General Chief complaint: Nausea/Vomiting/Diarrhea Stated complaint: Nausea, Vomiting Time Seen by Provider: 02/14/19 22:12 - History of Present Illness Initial comments: 18-year-old female presenting with chest pain that began at 7 PM. States she was eating eggs when she felt like it became lodged in her esophagus, she had some choking, attempted to drink water but threw up. She states that the symptoms have been intermittent since this episode. She's had one similar symptom in the past. States she had a recent EGD which was negative for acute process. Patient also states that she has an abdominal aortic aortic aneurysm and has had constant abdominal pain today. She admits to a history of multiple MIs as well as a history of COPD on 3 L of oxygen daily. (Claudia Sierra) - Related Data Home Medications Medication Instructions Recorded Confirmed Atenolol [Tenormin] 12.5 mg PO HS 12/27/13 02/14/19 Sucralfate [Carafate] 1 gm PO AC-TID 12/27/13 02/14/19 Pramipexole [Mirapex] 0.125 mg PO HS 09/12/14 02/14/19 Tiotropium 18 Mcg/Puff [Spiriva] 1 cap INHALATION RT-BID 09/12/14 02/14/19 DULoxetine HCL [Cymbalta] 60 mg PO BID 07/18/17 02/14/19 Cholecalciferol [Vitamin D3 (25 1,000 unit PO DAILY 12/12/17 02/14/19 Mcg = 1000 Iu)] Dexlansoprazole [Dexilant] 60 mg PO DAILY 12/12/17 02/14/19 Nitroglycerin Sl Tabs [Nitrostat] 0.4 mg SUBLINGUAL Q5M PRN 12/12/17 02/14/19 guaiFENesin [Mucinex] 1,200 mg PO Q12H 12/12/17 02/14/19 Albuterol Inhaler [Ventolin Hfa 1 - 2 puff INHALATION RT-Q6H PRN 10/08/18 02/14/19 Inhaler] Butalb/APAP/Caff 50-325-40Mg 1 - 2 tab PO Q8H PRN 10/08/18 02/14/19 [Fioricet 50-325-40] Calcium Carbonate/Vitamin D3 1 tab PO BID 10/08/18 02/14/19 [Calcium 600-Vit D3 400 Caplet] Ipratropium-Albuterol Nebulize 3 ml INHALATION RT-QID 10/08/18 02/14/19 [Duoneb 0.5 mg-3 mg/3 ml Soln] Topiramate [Topamax] 50 mg PO BID 10/08/18 02/14/19 cloNIDine HCL [Catapres] 0.1 mg PO Q8H PRN 10/08/18 02/14/19 cycloSPORINE [Restasis] 1 drop BOTH EYES BID 10/08/18 02/14/19 Synthroid- 25 mcg PO HS 10/29/18 02/14/19 ALPRAZolam [Xanax] 0.5 mg PO TID PRN 02/14/19 02/14/19 SILVER sulfADIAZINE CREAM 1 applic TOPICAL DAILY 02/14/19 02/14/19 [Silvadene Cream] Previous Rx's Medication Instructions Recorded Aspirin 81 mg PO DAILY chew 09/02/17 Pravastatin Sodium [Pravachol] 80 mg PO HS #0 tab 09/02/17 Allergies Allergy/AdvReac Type Severity Reaction Status Date / Time naproxen sodium [From Aleve] Allergy Severe Anaphylaxis Verified 02/14/19 22:54 adhesive Allergy Rash/Hives Verified 02/14/19 22:54 cinnamon [Cinnamon] Allergy Dyspnea Verified 02/14/19 22:54 clindamycin Allergy Anaphylaxis Verified 02/14/19 22:54 codeine Allergy Nausea & Verified 02/14/19 22:54 Vomiting gentamicin [Gentamicin] Allergy SWELLING Verified 02/14/19 22:54 OF FACE W/ EYE DROPS paola Allergy Dyspnea Verified 02/14/19 22:54 Iodinated Contrast- Oral and Allergy Dyspnea Verified 02/14/19 22:54 IV Dye latex Allergy Rash/Hives Verified 02/14/19 22:54 levothyroxine sodium Allergy Unknown Verified 02/14/19 22:54 [From Synthroid] losartan Allergy Unknown Verified 02/14/19 22:54 montelukast sodium Allergy Wheezing Verified 02/14/19 22:54 [From Singulair] pantoprazole sodium Allergy Abdominal Verified 02/14/19 22:54 [From Protonix] Pain Penicillins Allergy Rash/Hives Verified 02/14/19 22:54 red dye Allergy Abdominal Verified 02/14/19 22:54 Pain Sulfa (Sulfonamide Allergy Swelling Verified 02/14/19 22:54 Antibiotics) IN MOUTH sulfamethoxazole Allergy swelling Verified 02/14/19 22:54 [From Bactrim] tongue sulfanilamide Allergy Unknown Verified 02/14/19 22:54 trimethoprim [From Bactrim] Allergy Swelling Verified 02/14/19 22:54 venom-honey bee Allergy Dyspnea Verified 02/14/19 22:54 [bee venom (honey bee)] BANDAIDS Allergy Rash/Hives Uncoded 11/04/18 08:54 Dye for gallbladder scan. Allergy Anaphylaxis Uncoded 11/04/18 08:54 tomatoes AdvReac Abdominal Uncoded 11/04/18 08:54 Pain Review of Systems ROS Other: All systems not noted in ROS Statement are negative. <Claudia Sierra - Last Filed: 02/14/19 23:13> ROS Other: All systems not noted in ROS Statement are negative. <Ligia Garza - Last Filed: 02/15/19 03:08> ROS Statement: Those systems with pertinent positive or pertinent negative responses have been documented in the HPI. Review of Systems Constitutional: Denies fever, chills Eyes: Denies change in vision, Denies pain Ears, nose, mouth, throat: Denies headaches, Denies sore throat Cardiovascular: Positive chest pain. Denies palpitations Respiratory: Denies shortness of breath, Denies cough Gastrointestinal: Positive abdominal pain. Positive nausea, vomiting, diarrhea. Genitourinary: Denies hematuria, Denies infections Musculoskeletal: Denies pain, Denies swelling Integumentary: Denies rash Neurological: Denies headache, focal weakness, focal numbness Psychiatric: Denies anxiety, Denies depression Hematologic/Lymphatic: Denies easy bleeding or bruising (Claudia Sierra) Past Medical History Past Medical History: Asthma, Coronary Artery Disease (CAD), Chest Pain / Angina, COPD, Deep Vein Thrombosis (DVT), GERD/Reflux, GI Bleed, Hypertension, Liver Disease, Memory Impairment, Myocardial Infarction ([place]), Pneumonia, Respiratory Disorder, Sleep Apnea/CPAP/BIPAP, Vascular Disorder Additional Past Medical History / Comment(s): on 10/25/18 pt states was having pizza with family and food got stuck, pt had small amount of emesis. She went to bed and woke up to discover that she was incontinent of stool while she slept. Pt states that this has never happened. aLSO STATES THAT IT IS GETTING HARDER TO SWALLOW. Aortic aneurysm with stent-being monitored, Takosubu syndrome in 2016, R groin dissection/cardiac cath, recent bacteremia-blood cultures positive for veridans strep-completed antibiotics, bronchitis, home O2 at 3L/NC most of the time, LG without device-stable, DVT R leg, lower GI bleed, hepatitis C with Harvoni treatment, anemia with iron infusions x2, bilateral femoral head avascular necrosis, RLS, migraines, insomnia, constipation, overactive bladder, post menopausal bleed. Last Myocardial Infarction Date:: 07/2017 History of Any Multi-Drug Resistant Organisms: None Reported Past Surgical History: Bladder Surgery, Cholecystectomy, Heart Catheterization With Stent, Hysterectomy, Orthopedic Surgery Additional Past Surgical History / Comment(s): 11/28/17 lap albert, PCI with stent 2010, cardiac cath 07/2017-treat medically, common iliac artery stent 2005, exploratory lap, liver bx, R foot surgery d/t infection, R shoulder arthroscopic surgery, CAN, EGD, colonoscopy years ago, R leg varicose vein surgery, bladder suspension Past Anesthesia/Blood Transfusion Reactions: No Reported Reaction Date of Last Stent Placement:: 2010 Past Psychological History: Anxiety, Depression, Panic Disorder Smoking Status: Current every day smoker - Past Family History Brother(s) Family Medical History: Coronary Artery Disease (CAD), Myocardial Infarction ([place] ) Father Additional Family Medical History / Comment(s): FROM CIRRHOSIS OF THE LIVER Mother Family Medical History: COPD Additional Family Medical History / Comment(s): FROM AAA, HAD HX of TB. <Claudia Sierra - Last Filed: 02/14/19 23:13> General Exam Limitations: no limitations <Claudia Sierra - Last Filed: 02/14/19 23:13> - General Exam Comments Initial Comments: General: Awake, alert, No acute Distress. Cachectic. Nasal cannula HENT: Normocephalic. Atraumatic Eyes: PERRL. EOMI. No scleral icterus. No injected conjunctiva Neck: Full ROM Chest/Lungs: Distant lung sounds bilaterally Cardiac: Regular rate, rhythm. No murmurs or rubs Abdomen/GI: Soft, nontender, nondistended. No rebound, guarding, or rigidity. Musculoskeletal: Full ROM Skin: Warm, dry, intact Neurologic: A/Ox3, no weakness, no sensory deficit, no abnormal gait, no coordination deficit (Claudia Sierra) Course Vital Signs 02/14/19 02/14/19 02/14/19 22:16 22:22 22:30 Temperature 98.6 F Pulse Rate 71 73 74 Respiratory 20 25 H 21 Rate Blood Pressure 214/100 217/102 O2 Sat by Pulse 100 88 L 100 Oximetry 02/14/19 02/14/19 02/14/19 22:40 22:50 23:00 Temperature Pulse Rate 74 76 85 Respiratory 20 23 16 Rate Blood Pressure 212/110 212/110 212/110 O2 Sat by Pulse 100 100 100 Oximetry 02/14/19 02/14/19 02/14/19 23:10 23:20 23:30 Temperature Pulse Rate 75 74 Respiratory 18 27 H Rate Blood Pressure 225/112 225/112 225/112 O2 Sat by Pulse 98 100 Oximetry 02/14/19 02/15/19 02/15/19 23:50 00:00 00:10 Temperature Pulse Rate 71 67 69 Respiratory 18 20 24 Rate Blood Pressure 204/101 197/99 O2 Sat by Pulse 100 100 100 Oximetry 02/15/19 00:20 Temperature Pulse Rate 68 Respiratory 17 Rate Blood Pressure 197/99 O2 Sat by Pulse 100 Oximetry EKG Findings - EKG Comments: EKG Findings:: EKG shows normal sinus rhythm at a rate of 74 bpm with left atrial enlargement.No ST segment elevation, depression. No prolonged QT/QTc or OH interval. No dysrythmia noted. <Claudia Sierra - Last Filed: 02/14/19 23:13> Medical Decision Making - Lab Data Result diagrams: 02/14/19 22:40 <Claudia Sierra - Last Filed: 02/14/19 23:13> - Lab Data Result diagrams: 02/14/19 22:40 02/15/19 00:20 <Ligia Garza - Last Filed: 02/15/19 03:08> - Medical Decision Making 68-year-old female presenting with chest pain. Initial exam the patient is awake, alert, no acute distress. She is hypertensive but vital signs are otherwise stable. (Claudia Sierra) Patient care was signed out to me by Dr. Sierra, patient presented with abdominal pain, patient was hypertensive but otherwise stable. Patient was given morphine she had no nausea or vomiting in the emergency department. A computed tomography scan was ordered and completed at the time of sign out the results of computed tomography scan were pending. CT resulted with food in the esophagus, gastric distention duodenal asked distention and concern for possible early small bowel obstruction. These results were discussed with the patient was resting in bed but still having some abdominal discomfort, she does report that she felt morphine improved her pain transiently. At this time I will plan to admit the patient for possible early small bowel obstruction. Patient's primary care physician Dr. Colbert admits patients to Dr. Hernandez's group, patient care was discussed with Dr. Hernandez who agrees with plan for admission for possible early small bowel obstruction. She requested Dr. Harris general surgery be consulted. At this time she doesn't feel that gastroenterology needs to be consulted. Admission orders and consults were placed. Patient states her nothing by mouth diet with IV fluids, morphine and Dilaudid when necessary for pain management. (Ligia Garza) - Lab Data Lab Results 02/14/19 02/14/19 02/14/19 Range/Units 22:40 22:40 22:40 WBC 6.8 (3.8-10.6) k/uL RBC 3.30 L (3.80-5.40) m/uL Hgb 9.9 L (11.4-16.0) gm/dL Hct 30.9 L (34.0-46.0) % MCV 93.6 (80.0-100.0) fL MCH 30.1 (25.0-35.0) pg MCHC 32.1 (31.0-37.0) g/dL RDW 14.2 (11.5-15.5) % Plt Count 126 L (150-450) k/uL Neutrophils % 56 % Lymphocytes % 30 % Monocytes % 5 % Eosinophils % 7 % Basophils % 0 % Neutrophils # 3.8 (1.3-7.7) k/uL Lymphocytes # 2.1 (1.0-4.8) k/uL Monocytes # 0.3 (0-1.0) k/uL Eosinophils # 0.5 (0-0.7) k/uL Basophils # 0.0 (0-0.2) k/uL Sodium (137-145) mmol/L Potassium (3.5-5.1) mmol/L Chloride (98-107) mmol/L Carbon Dioxide (22-30) mmol/L Anion Gap mmol/L BUN (7-17) mg/dL Creatinine (0.52-1.04) mg/dL Est GFR (CKD-EPI)AfAm (>60 ml/min/1.73 sqM) Est GFR (CKD-EPI)NonAf (>60 ml/min/1.73 sqM) Glucose (74-99) mg/dL Calcium (8.4-10.2) mg/dL Troponin I <0.012 (0.000-0.034) ng/mL NT-Pro-B Natriuret Pep 2380 pg/mL 02/15/19 Range/Units 00:20 WBC (3.8-10.6) k/uL RBC (3.80-5.40) m/uL Hgb (11.4-16.0) gm/dL Hct (34.0-46.0) % MCV (80.0-100.0) fL MCH (25.0-35.0) pg MCHC (31.0-37.0) g/dL RDW (11.5-15.5) % Plt Count (150-450) k/uL Neutrophils % % Lymphocytes % % Monocytes % % Eosinophils % % Basophils % % Neutrophils # (1.3-7.7) k/uL Lymphocytes # (1.0-4.8) k/uL Monocytes # (0-1.0) k/uL Eosinophils # (0-0.7) k/uL Basophils # (0-0.2) k/uL Sodium 136 L (137-145) mmol/L Potassium 4.0 (3.5-5.1) mmol/L Chloride 104 (98-107) mmol/L Carbon Dioxide 25 (22-30) mmol/L Anion Gap 7 mmol/L BUN 21 H (7-17) mg/dL Creatinine 1.02 (0.52-1.04) mg/dL Est GFR (CKD-EPI)AfAm 65 (>60 ml/min/1.73 sqM) Est GFR (CKD-EPI)NonAf 56 (>60 ml/min/1.73 sqM) Glucose 127 H (74-99) mg/dL Calcium 9.3 (8.4-10.2) mg/dL Troponin I (0.000-0.034) ng/mL NT-Pro-B Natriuret Pep pg/mL Disposition <Claudia Sierra E - Last Filed: 02/14/19 23:13> <Ligia Garza - Last Filed: 02/15/19 03:08> Clinical Impression: SBO (small bowel obstruction), Abdominal pain Disposition: ADMITTED IP TO THIS HOSP Condition: Stable Referrals: Jenaro Colbert DO [Primary Care Provider] - 1-2 days
[2019-02-14] MEDS ORDERED: NITROGLYCERIN SL TABS 0.4 MG TAB SUBLINGUAL STA (23:53)
[2019-02-14] MEDS ORDERED: MORPHINE SULFATE 4 MG/ML SYRINGE IVP STA (23:56)
--- NOTE | 2019-02-15 00:20 | XR ---
EXAMINATION TYPE: XR chest 1V DATE OF EXAM: 02/14/2019 COMPARISON: 10/08/2018 HISTORY: 68-year-old female with pain TECHNIQUE: Single frontal view of the chest is obtained. FINDINGS: Heart upper limits of normal in size. Leftward patient rotation alters normal cardiomediastinal conto urs. ACDF hardware. Mild central interstitial densities. No toshia consolidation or pleural effusion. Hyperinflation. Abdominal aortic endovascular stent graft. IMPRESSION: COPD and chronic appearing changes. No definite acute process allowing for limited, rotated exam.
[2019-02-15 01:15] LABS: Calcium 9.3 mg/dL (8.4-10.2)
--- NOTE | 2019-02-15 02:40 | CT ---
EXAM: CT Chest Without Intravenous Contrast CLINICAL HISTORY: ITS.REASON CT Reason: Pain TECHNIQUE: Axial computed tomography images of the chest without intravenous contrast. CTDI is 4.1 mGy and DLP is 290.8 mGy-cm. This CT exam was performed using one or more of the following dose reduction techniques: automated exposure control, adjustment of the mA and/or kV according to patient size, and/or use of iterative reconstruction technique. COMPARISON: CT chest 07/18/2017 FINDINGS: Lungs: Advanced pulmonary emphysema with biapical and upper lobe bullous changes. Biapical and upper lobe pleural-parenchymal scarring with some associated calcifications. No evidence of acute pulmonary parenchymal disease or consolidation. Pleural space: No evidence of pleural effusion or pneumothorax. Heart: Heart size is within normal limits. No significant pericardial effusion. Prominent coronary arterial calcifications. Mediastinum: Diffuse distention of thoracic esophagus to the level of GE junction with retained debris within distended esophagus. Bones/joints: Fixation plate partially imaged along lower cervical spine. Moderate multilevel degenerative changes throughout the mid and lower thoracic spine. . Vasculature: Moderate calcific atherosclerotic disease involving thoracic aorta. Mild focal saccular aneurysm along left lateral aspect of thoracic aortic arch with overall transverse aortic diameter of 3.5 cm, unchanged since 07/18/2017. Lymph nodes: No pathologically enlarged lymphadenopathy. IMPRESSION: Advanced pulmonary emphysema with biapical and upper lobe pleural- parenchymal scarring. No evidence of acute parenchymal disease or consolidation. Mild focal saccular aneurysm along the left lateral aspect of thoracic aortic arch, unchanged as compared to prior CT of 07/18/2017. Distended thoracic esophagus with residual debris level of GE junction. EXAM: CT Abdomen and Pelvis Without Intravenous Contrast CLINICAL HISTORY: ITS.REASON CT Reason: Pain TECHNIQUE: Axial computed tomography images of the abdomen and pelvis without intravenous contrast. CTDI is 4.1 mGy and DLP is 290.8 mGy-cm. This CT exam was performed using one or more of the following dose reduction techniques: automated exposure control, adjustment of the mA and/or kV according to patient size, and/or use of iterative reconstruction technique. COMPARISON: CT abdomen-pelvis 10/30/2017 FINDINGS: ABDOMEN: Liver: Liver is unremarkable. Gallbladder and bile ducts: No calcified gallstones. No ductal dilation. Pancreas: Unremarkable. Spleen: Spleen is of normal size. Calcified splenic granuloma. Adrenals: No adrenal masses. Kidneys and ureters: Kidneys are of normal size bilaterally. Several small left renal calcifications which are likely vascular although small nonobstructing calculi cannot be excluded. No evidence of hydronephrosis. Stomach and bowel: Mild gaseous and fluid dilatation of duodenum to level of third portion of duodenum with areas extrinsic impression upon duodenum by aortic aneurysm which could result in partial obstruction. Small and large bowel are otherwise of normal caliber. Abundant colonic fecal debris suggestive of constipation. PELVIS: Appendix: Appendix not identified. Clinical correlation is recommended. Bladder: Urinary bladder is nondistended. No bladder calculi identified. Reproductive: Status post previous hysterectomy. ABDOMEN and PELVIS: Intraperitoneal space: No evidence of pneumoperitoneum.. Bones/joints: Mild multilevel lumbar spine degenerative changes. Moderate degenerative changes about both hips. Findings suggesting bilateral femoral head avascular necrosis. Soft tissues: Paucity of abdominal and retroperitoneal fat. Vasculature: Continued evidence of mid-distal abdominal aortic aneurysm with indwelling aortobiiliac endoluminal stent graft. [place] aneurysm sac measures 3.7 cm AP by 4.2 cm transverse, not significantly changed as compared to prior CT 10/30/2017. No evidence of periaortic hemorrhage. Bilateral common iliac artery aneurysms. Right common iliac artery aneurysm measures 2.5 cm which is minimally increased as compared to 10/30/2017. Left common iliac artery aneurysm measures 3.2 cm which is also minimally increased since 10/30/2017. Lymph nodes: No evidence of lymphadenopathy. IMPRESSION: Mild gastric fluid distention and moderate gaseous and fluid distention of duodenum to level of third portion of duodenum with findings raising possibility of partial obstruction at level of crossing of abdominal aorta. Abundant colonic fecal debris suggestive of constipation. Abdominal aortic aneurysm with indwelling aortobiiliac endoluminal stent graft, not significantly changed as compared to prior CT 10/30/2017. Bilateral common iliac artery aneurysms minimally increased in size since CT 10/30/2017. Bony findings as described in body of report. <MYCVCSECTION> [employer] 02/15/19 02:50 Verify Receipt Verified receipt with ONUR Torrez; Given to Dr. Garza on 02/15 02:50 (-04:00)
[2019-02-15] MEDS ORDERED: ALPRAZolam 0.5 MG TAB PO PRN (02:51)
[2019-02-15] MEDS ORDERED: ALBUTEROL NEBULIZED 2.5 MG/3 ML INHALATION PRN (02:51)
[2019-02-15] MEDS ORDERED: cloNIDine HCL 0.1 MG TAB PO PRN (02:51)
[2019-02-15] MEDS ORDERED: NALOXONE 0.4 MG/ML 1 ML VIAL IV PRN (03:02)
[2019-02-15] MEDS ORDERED: HYDROmorphone 1 MG/ML 1 ML SYRINGE IVP PRN (03:02)
[2019-02-15] MEDS ORDERED: ONDANSETRON 4 MG/2 ML VIAL IVP STA (03:31)
[2019-02-15] MEDS: SODIUM CHLORIDE 0.9% 1,000 ML IV SCH ×3 (04:02→23:42)
[2019-02-15] MEDS: DULoxetine HCL 60 MG CAPSULE.DR PO SCH ×2 (08:30→21:01)
[2019-02-15] MEDS: TOPIRAMATE 25 MG TAB PO SCH ×2 (08:30→21:01)
[2019-02-15] MEDS: IPRATROPIUM-ALBUTEROL 3 ML NEB INHALATION SCH ×4 (09:29→21:49)
[2019-02-15] MEDS: IPRATROPIUM 0.5 MG/2.5 ML NEBU INHALATION SCH ×4 (09:29→20:47)
--- NOTE | 2019-02-15 10:46 | P.GSCN ---
History of Present Illness Consult date: 02/15/19 History of present illness: 68-year-old female presented to the emergency department with complaints of upper abdominal pain, chest pain and vomiting. She presents with her daughter and granddaughter. The patient is somewhat of a poor historian and is somewhat weak during my exam. Her daughter is answering many of the questions for her. It seems as if the patient has had multiple similar episodes over the past 6 months. She has some vomiting episodes after eating and according to the daughter she states sometimes food comes up but most of the time it is white phlegm. She has been evaluated by gastroenterology and has had upper and lower endoscopy. There were no significant suspicious findings during the scopes. CT of the abdomen and pelvis was performed that does show distention of the third portion of the duodenum and this distention does travel proximally. There is suspicion that the abdominal aortic aneurysm that the patient does have may be compressing a portion of the small bowel due to the patient's decreased weight. The patient also does complain of weight loss over the past year. She denies any fevers, chills, chest pain or shortness of breath. She has no additional complaints at this time. Review of Systems All systems: negative Past Medical History Past Medical History: Asthma, Coronary Artery Disease (CAD), Chest Pain / Angina, COPD, Deep Vein Thrombosis (DVT), GERD/Reflux, GI Bleed, Hypertension, Liver Disease, Memory Impairment, Myocardial Infarction (RI), Pneumonia, Respiratory Disorder, Sleep Apnea/CPAP/BIPAP, Vascular Disorder Additional Past Medical History / Comment(s): on 10/25/18 pt states was having pizza with family and food got stuck, pt had small amount of emesis. She went to bed and woke up to discover that she was incontinent of stool while she slept. Pt states that this has never happened. aLSO STATES THAT IT IS GETTING HARDER TO SWALLOW. Aortic aneurysm with stent-being monitored, Takosubu syndrome in 2016, R groin dissection/cardiac cath, recent bacteremia-blood cultures positive for veridans strep-completed antibiotics, bronchitis, home O2 at 3L/NC most of the time, LG without device-stable, DVT R leg, lower GI bleed, hepatitis C with Harvoni treatment, anemia with iron infusions x2, bilateral femoral head avascular necrosis, RLS, migraines, insomnia, constipation, overactive bladder, post menopausal bleed. Last Myocardial Infarction Date:: 07/2017 History of Any Multi-Drug Resistant Organisms: None Reported Past Surgical History: Bladder Surgery, Cholecystectomy, Heart Catheterization With Stent, Hysterectomy, Orthopedic Surgery Additional Past Surgical History / Comment(s): 11/28/17 lap albert, PCI with stent 2010, cardiac cath 07/2017-treat medically, common iliac artery stent 2005, exploratory lap, liver bx, R foot surgery d/t infection, R shoulder arthroscopic surgery, CAN, EGD, colonoscopy years ago, R leg varicose vein surgery, bladder suspension Past Anesthesia/Blood Transfusion Reactions: No Reported Reaction Date of Last Stent Placement:: 2010 Past Psychological History: Anxiety, Depression, Panic Disorder Additional Psychological History / Comment(s): PT RESIDES WITH HER SPOUSE WHO IS IN HIS 80'S AND IS NOT WELL. PT USES a walker. SHE NO LONGER DRIVES, FAMILY TAKES THEM TO THEIR APPTS. THEY HAVE VNA. pt stated has home 02 3 liters n/c, has cane/walker/wheel chair if needed. Smoking Status: Current every day smoker Past Alcohol Use History: None Reported Additional Past Alcohol Use History / Comment(s): She was a smoker starting in 1956. Smokes approx 5-8 cig.'s per day. Quit last Jun. but started again. Past Drug Use History: None Reported - Past Family History Brother(s) Family Medical History: Coronary Artery Disease (CAD), Myocardial Infarction (RI) Father Additional Family Medical History / Comment(s): FROM CIRRHOSIS OF THE LIVER Mother Family Medical History: COPD Additional Family Medical History / Comment(s): FROM AAA, HAD HX of TB. Medications and Allergies Home Medications Medication Instructions Recorded Confirmed Type Atenolol [Tenormin] 12.5 mg PO HS 12/27/13 02/14/19 History Sucralfate [Carafate] 1 gm PO AC-TID 12/27/13 02/14/19 History Pramipexole [Mirapex] 0.125 mg PO HS 09/12/14 02/14/19 History Tiotropium 18 Mcg/Puff [Spiriva] 1 cap INHALATION RT-BID 09/12/14 02/14/19 History DULoxetine HCL [Cymbalta] 60 mg PO BID 07/18/17 02/14/19 History Aspirin 81 mg PO DAILY chew 09/02/17 02/14/19 Rx Pravastatin Sodium [Pravachol] 80 mg PO HS #0 tab 09/02/17 02/14/19 Rx Cholecalciferol [Vitamin D3 (25 1,000 unit PO DAILY 12/12/17 02/14/19 History Mcg = 1000 Iu)] Dexlansoprazole [Dexilant] 60 mg PO DAILY 12/12/17 02/14/19 History Nitroglycerin Sl Tabs [Nitrostat] 0.4 mg SUBLINGUAL Q5M PRN 12/12/17 02/14/19 History guaiFENesin [Mucinex] 1,200 mg PO Q12H 12/12/17 02/14/19 History Albuterol Inhaler [Ventolin Hfa 1 - 2 puff INHALATION RT-Q6H PRN 10/08/18 02/14/19 History Inhaler] Butalb/APAP/Caff 50-325-40Mg 1 - 2 tab PO Q8H PRN 10/08/18 02/14/19 History [Fioricet 50-325-40] Calcium Carbonate/Vitamin D3 1 tab PO BID 10/08/18 02/14/19 History [Calcium 600-Vit D3 400 Caplet] Ipratropium-Albuterol Nebulize 3 ml INHALATION RT-QID 10/08/18 02/14/19 History [Duoneb 0.5 mg-3 mg/3 ml Soln] Topiramate [Topamax] 50 mg PO BID 10/08/18 02/14/19 History cloNIDine HCL [Catapres] 0.1 mg PO Q8H PRN 10/08/18 02/14/19 History cycloSPORINE [Restasis] 1 drop BOTH EYES BID 10/08/18 02/14/19 History Synthroid- 25 mcg PO HS 10/29/18 02/14/19 History ALPRAZolam [Xanax] 0.5 mg PO TID PRN 02/14/19 02/14/19 History SILVER sulfADIAZINE CREAM 1 applic TOPICAL DAILY 02/14/19 02/14/19 History [Silvadene Cream] Allergies Allergy/AdvReac Type Severity Reaction Status Date / Time naproxen sodium [From Aleve] Allergy Severe Anaphylaxis Verified 02/14/19 22:54 adhesive Allergy Rash/Hives Verified 02/14/19 22:54 cinnamon [Cinnamon] Allergy Dyspnea Verified 02/14/19 22:54 clindamycin Allergy Anaphylaxis Verified 02/14/19 22:54 codeine Allergy Nausea & Verified 02/14/19 22:54 Vomiting gentamicin [Gentamicin] Allergy SWELLING Verified 02/14/19 22:54 OF FACE W/ EYE DROPS paola Allergy Dyspnea Verified 02/14/19 22:54 Iodinated Contrast- Oral and Allergy Dyspnea Verified 02/14/19 22:54 IV Dye latex Allergy Rash/Hives Verified 02/14/19 22:54 levothyroxine sodium Allergy Unknown Verified 02/14/19 22:54 [From Synthroid] losartan Allergy Unknown Verified 02/14/19 22:54 montelukast sodium Allergy Wheezing Verified 02/14/19 22:54 [From Singulair] pantoprazole sodium Allergy Abdominal Verified 02/14/19 22:54 [From Protonix] Pain Penicillins Allergy Rash/Hives Verified 02/14/19 22:54 red dye Allergy Abdominal Verified 02/14/19 22:54 Pain Sulfa (Sulfonamide Allergy Swelling Verified 02/14/19 22:54 Antibiotics) IN MOUTH sulfamethoxazole Allergy swelling Verified 02/14/19 22:54 [From Bactrim] tongue sulfanilamide Allergy Unknown Verified 02/14/19 22:54 trimethoprim [From Bactrim] Allergy Swelling Verified 02/14/19 22:54 venom-honey bee Allergy Dyspnea Verified 02/14/19 22:54 [bee venom (honey bee)] BANDAIDS Allergy Rash/Hives Uncoded 11/04/18 08:54 Dye for gallbladder scan. Allergy Anaphylaxis Uncoded 11/04/18 08:54 tomatoes AdvReac Abdominal Uncoded 11/04/18 08:54 Pain Surgical - Exam Osteopathic Statement: *. No significant issues noted on an osteopathic structural exam other than those noted in the History and Physical/Consult. Vital Signs Temp Pulse Resp BP Pulse Ox 98.6 F 71 20 214/100 100 02/14/19 22:16 02/14/19 22:16 02/14/19 22:16 02/14/19 22:16 02/14/19 22:16 - General no distress, cachectic - Eyes normal ocular movement - ENT no hearing loss - Neck trachea midline - Respiratory normal respiratory effort - Abdomen Soft, generalized tenderness, nondistended, no rebound, no guarding - Psychiatric oriented to time, oriented to person, oriented to place Results - Labs 02/14/19 22:40 02/15/19 00:20 Abnormal Lab Results - Last 24 Hours (Table) 02/14/19 02/15/19 Range/Units 22:40 00:20 RBC 3.30 L (3.80-5.40) m/uL Hgb 9.9 L (11.4-16.0) gm/dL Hct 30.9 L (34.0-46.0) % Plt Count 126 L (150-450) k/uL Sodium 136 L (137-145) mmol/L BUN 21 H (7-17) mg/dL Glucose 127 H (74-99) mg/dL Diabetes panel 02/15/19 Range/Units 00:20 Sodium 136 L (137-145) mmol/L Potassium 4.0 (3.5-5.1) mmol/L Chloride 104 (98-107) mmol/L Carbon Dioxide 25 (22-30) mmol/L BUN 21 H (7-17) mg/dL Creatinine 1.02 (0.52-1.04) mg/dL Glucose 127 H (74-99) mg/dL Calcium 9.3 (8.4-10.2) mg/dL Calcium panel 02/15/19 Range/Units 00:20 Calcium 9.3 (8.4-10.2) mg/dL Pituitary panel 02/15/19 Range/Units 00:20 Sodium 136 L (137-145) mmol/L Potassium 4.0 (3.5-5.1) mmol/L Chloride 104 (98-107) mmol/L Carbon Dioxide 25 (22-30) mmol/L BUN 21 H (7-17) mg/dL Creatinine 1.02 (0.52-1.04) mg/dL Glucose 127 H (74-99) mg/dL Calcium 9.3 (8.4-10.2) mg/dL Adrenal panel 02/15/19 Range/Units 00:20 Sodium 136 L (137-145) mmol/L Potassium 4.0 (3.5-5.1) mmol/L Chloride 104 (98-107) mmol/L Carbon Dioxide 25 (22-30) mmol/L BUN 21 H (7-17) mg/dL Creatinine 1.02 (0.52-1.04) mg/dL Glucose 127 H (74-99) mg/dL Calcium 9.3 (8.4-10.2) mg/dL - Imaging CT scan - abdomen: report reviewed, image reviewed CT scan - pelvis: report reviewed, image reviewed (Distention of the proximal small bowel was noted. The patient does appear to be cachectic and a possibility of compression from the aortic aneurysm) Assessment and Plan (1) SBO (small bowel obstruction) Narrative/Plan: 68-year-old female with possible small bowel obstruction. I did recommend nasogastric tube decompression at this time. I did review the CT of the abdomen and pelvis and the patient does appear that be quite cachectic and has a large aortic aneurysm that may be compressing the small bowel. At this point, we will treat with decompression. We also may need to consider a small bowel series for further evaluation. If the patient would require any surgical intervention, the patient may require evaluation at a tertiary care center. I will continue to provide recommendations during this patient's admission. Current Visit: Yes Status: Acute Code(s): K56.609 - UNSP INTESTNL OBST, UNSP TO PARTIAL VERSUS COMPLETE OBST SNOMED Code(s): 530902138
--- NOTE | 2019-02-15 10:49 | XR ---
EXAMINATION TYPE: XR chest 1V DATE OF EXAM: 02/15/2019 COMPARISON: 02/14/2019 HISTORY: NG tube placement TECHNIQUE: Single frontal view of the chest is obtained. FINDINGS: Hyperinflation suggests COPD. Atherosclerotic change aorta. NG tube seen coursing in the a bdomen. Postsurgical change overlying the cervical spine. Aortic stent graft noted. No overt failure. No pneumothorax. No consolidation. IMPRESSION: NG tube appears to be within the left upper quadrant likely in the gastric fundus. Corre late for COPD.
[2019-02-15 12:57] VITALS: BMI 15.8
[2019-02-15] MEDS ORDERED: ENALAPRILAT 1.25 MG/ML 1 ML VIAL IVP PRN (13:36)
--- NOTE | 2019-02-15 13:50 | P.HPIM ---
History of Present Illness H&P Date: 02/15/19 This is a 68-year-old female one of Dr. Colbert patient with past medical history of hepatitis C post the Harvoni therapy, history of CAD with non-ST elevated myocardial infarction in April 2017 status post heart catheterization and stenting of the RCA with heavily calcified right and left coronary systems and recommendations to maximize medical treatment, COPD, asthma, chronic hypoxic respiratory failure on home O2 at 3 L nasal cannula, previous history of DVT along with Takosubu syndrome, GI bleed (April 2016). 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 Islas at that time. She presents to the emergency room with complaints of upper abdominal pain, chest pain and vomiting. The patient also states that she is having trouble swallowing food. She has had [address] Braden completed a scope done in October 2018. Patient states that after she had an omelette yesterday she developed vomiting with mucus and food. She denies having any fever or chills. She had last bowel movement was 3-4 days ago and she usually has a bowel movement every 2-3 days. She denies any blood in her stools. She uses MiraLAX daily which usually controls her constipation. She states she may have some choking on some food. She has cough with clear sputum production. She denies any rash. EGD performed October [address] Braden revealed very small sliding hiatal hernia with no obvious esophagitis R, K reflux disease. Mild antral gastritis. Colonoscopy was incomplete and random biopsy was completed. 12 no biopsy was benign intact mucosa with intact villous architecture. Gastric antrum biopsy showed chronic gastritis and evidence of chemical gastropathy. H. pylori not identified. Esophagus biopsy was benign squamous mucosa. Colon biopsy showed unremarkable mucosa. Patient came into [facility] emergency center for evaluation. She underwent a CAT scan of the chest abdomen and pelvis. Chest revealed advanced pulmonary emphysema with biapical upper lobe pleural branch mild scarring. No evidence of acute disease. Mild focal saccular aneurysm along the left lateral aspect of the thoracic aortic arch unchanged. Distended thoracic esophagus with residual debris level of GE junction. Abdomen and pelvis revealed mild gastric fluid distention and moderate gaseous and fluid distention of the duodenum to level of the third portion of the duodenum with findings raising possibility of partial obstruction at level of crossing of the abdominal aorta. Abundant colonic fecal debris suggestive constipation. Abdominal aortic aneurysm with indwelling aorta or iliac endoluminal stent graft not changed. Bilateral common iliac artery aneurysms minimally increased in size since 2018. Chest x-ray revealed COPD and chronic appearing changes. No definite acute process. White count was 6.8, hemoglobin 9.9, platelet count 126. BUN 21 creatinine 1.02, blood sugar 127. Initial blood pressure 225/112. Patient was given 1 dose of atenolol, morphine and Zofran and admitted to the [facility] floor. NG tube was placed this morning. Consult with Dr. Harris. Review of Systems Constitutional: Reports fatigue, Reports poor appetite, Denies chills, Denies fever Ears, nose, mouth and throat: Denies dental pain, Denies mouth pain, Denies nasal congestion, Denies nasal discharge Cardiovascular: Denies decreased exercise tolerance, Denies dyspnea on exertion, Denies edema, Denies leg edema, Denies lightheadedness, Denies syncope Respiratory: Reports cough, Reports cough with sputum, Reports home oxygen, Den ies dyspnea, Denies excessive sputum, Denies hemoptysis, Denies respiratory infections, Denies wheezing Gastrointestinal: Reports constipation, Reports loss of appetite, Reports nausea, Reports vomiting, Denies diarrhea Genitourinary: Denies urgency, Denies urinary frequency Musculoskeletal: Denies gait dysfunction, Denies muscle weakness Integumentary: Denies pruritus, Denies rash, Denies wounds Neurological: Denies aphasia, Denies change in mentation, Denies change in speech, Denies confusion, Denies convulsions, Denies seizures Psychiatric: Denies anxiety, Denies depression Endocrine: Denies fatigue, Denies weight change Past Medical History Past Medical History: Asthma, Coronary Artery Disease (CAD), Chest Pain / Angina, COPD, Deep Vein Thrombosis (DVT), GERD/Reflux, GI Bleed, Hypertension, Liver Disease, Memory Impairment, Myocardial Infarction (ND), Pneumonia, Respir atory Disorder, Sleep Apnea/CPAP/BIPAP, Vascular Disorder Additional Past Medical History / Comment(s): on 10/25/18 pt states was having pizza with family and food got stuck, pt had small amount of emesis. She went to bed and woke up to discover that she was incontinent of stool while she slept. Pt states that this has never happened. aLSO STATES THAT IT IS GETTING HARDER TO SWALLOW. Aortic aneurysm with stent-being monitored, Takosubu syndrome in 2016, R groin dissection/cardiac cath, recent bacteremia-blood cultures positive for veridans strep-completed antibiotics, bronchitis, home O2 at 3L/NC most of the time, LG without device-stable, DVT R leg, lower GI bleed, hepatitis C with Harvoni treatment, anemia with iron infusions x2, bilateral femoral head avascular necrosis, RLS, migraines, insomnia, constipation, overactive bladder, post menopausal bleed. Last Myocardial Infarction Date:: 07/2017 History of Any Multi-Drug Resistant Organisms: None Reported Past Surgical History: Bladder Surgery, Cholecystectomy, Heart Catheterization With Stent, Hysterectomy, Orthopedic Surgery Additional Past Surgical History / Comment(s): 11/28/17 lap albert, PCI with stent 2010, cardiac cath 07/2017-treat medically, common iliac artery stent 2005, exploratory lap, liver bx, R foot surgery d/t infection, R shoulder arthroscopic surgery, CAN, EGD, colonoscopy years ago, R leg varicose vein surgery, bladder suspension Past Anesthesia/Blood Transfusion Reactions: No Reported Reaction Date of Last Stent Placement:: 2010 Past Psychological History: Anxiety, Depression, Panic Disorder Additional Psychological History / Comment(s): PT RESIDES WITH HER SPOUSE WHO IS IN HIS 80'S AND IS NOT WELL. PT USES a walker. SHE NO LONGER DRIVES, FAMILY TAKES THEM TO THEIR APPTS. THEY HAVE VNA. pt stated has home 02 3 liters n/c, has cane/walker/wheel chair if needed. Smoking Status: Current every day smoker Past Alcohol Use History: None Reported Additional Past Alcohol Use History / Comment(s): She was a smoker starting in 1956. Smokes approx 5-8 cig.'s per day. Quit last Jun. but started again. Past Drug Use History: None Reported - Past Family History Brother(s) Family Medical History: Coronary Artery Disease (CAD), Myocardial Infarction (ND) Father Additional Family Medical History / Comment(s): FROM CIRRHOSIS OF THE LIVER Mother Family Medical History: COPD Additional Family Medical History / Comment(s): FROM AAA, HAD HX of TB. Medications and Allergies Home Medications Medication Instructions Recorded Confirmed Type Atenolol [Tenormin] 12.5 mg PO HS 12/27/13 02/14/19 History Sucralfate [Carafate] 1 gm PO AC-TID 12/27/13 02/14/19 History Pramipexole [Mirapex] 0.125 mg PO HS 09/12/14 02/14/19 History Tiotropium 18 Mcg/Puff [Spiriva] 1 cap INHALATION RT-BID 09/12/14 02/14/19 History DULoxetine HCL [Cymbalta] 60 mg PO BID 07/18/17 02/14/19 History Aspirin 81 mg PO DAILY chew 09/02/17 02/14/19 Rx Pravastatin Sodium [Pravachol] 80 mg PO HS #0 tab 09/02/17 02/14/19 Rx Cholecalciferol [Vitamin D3 (25 1,000 unit PO DAILY 12/12/17 02/14/19 History Mcg = 1000 Iu)] Dexlansoprazole [Dexilant] 60 mg PO DAILY 12/12/17 02/14/19 History Nitroglycerin Sl Tabs [Nitrostat] 0.4 mg SUBLINGUAL Q5M PRN 12/12/17 02/14/19 History guaiFENesin [Mucinex] 1,200 mg PO Q12H 12/12/17 02/14/19 History Albuterol Inhaler [Ventolin Hfa 1 - 2 puff INHALATION RT-Q6H PRN 10/08/18 02/14/19 History Inhaler] Butalb/APAP/Caff 50-325-40Mg 1 - 2 tab PO Q8H PRN 10/08/18 02/14/19 History [Fioricet 50-325-40] Calcium Carbonate/Vitamin D3 1 tab PO BID 10/08/18 02/14/19 History [Calcium 600-Vit D3 400 Caplet] Ipratropium-Albuterol Nebulize 3 ml INHALATION RT-QID 10/08/18 02/14/19 History [Duoneb 0.5 mg-3 mg/3 ml Soln] Topiramate [Topamax] 50 mg PO BID 10/08/18 02/14/19 History cloNIDine HCL [Catapres] 0.1 mg PO Q8H PRN 10/08/18 02/14/19 History cycloSPORINE [Restasis] 1 drop BOTH EYES BID 10/08/18 02/14/19 History Synthroid- 25 mcg PO HS 10/29/18 02/14/19 History ALPRAZolam [Xanax] 0.5 mg PO TID PRN 02/14/19 02/14/19 History SILVER sulfADIAZINE CREAM 1 applic TOPICAL DAILY 02/14/19 02/14/19 History [Silvadene Cream] Allergies Allergy/AdvReac Type Severity Reaction Status Date / Time naproxen sodium [From Aleve] Allergy Severe Anaphylaxis Verified 02/14/19 22:54 adhesive Allergy Rash/Hives Verified 02/14/19 22:54 cinnamon [Cinnamon] Allergy Dyspnea Verified 02/14/19 22:54 clindamycin Allergy Anaphylaxis Verified 02/14/19 22:54 codeine Allergy Nausea & Verified 02/14/19 22:54 Vomiting gentamicin [Gentamicin] Allergy SWELLING Verified 02/14/19 22:54 OF FACE W/ EYE DROPS paola Allergy Dyspnea Verified 02/14/19 22:54 Iodinated Contrast- Oral and Allergy Dyspnea Verified 02/14/19 22:54 IV Dye latex Allergy Rash/Hives Verified 02/14/19 22:54 levothyroxine sodium Allergy Unknown Verified 02/14/19 22:54 [From Synthroid] losartan Allergy Unknown Verified 02/14/19 22:54 montelukast sodium Allergy Wheezing Verified 02/14/19 22:54 [From Singulair] pantoprazole sodium Allergy Abdominal Verified 02/14/19 22:54 [From Protonix] Pain Penicillins Allergy Rash/Hives Verified 02/14/19 22:54 red dye Allergy Abdominal Verified 02/14/19 22:54 Pain Sulfa (Sulfonamide Allergy Swelling Verified 02/14/19 22:54 Antibiotics) IN MOUTH sulfamethoxazole Allergy swelling Verified 02/14/19 22:54 [From Bactrim] tongue sulfanilamide Allergy Unknown Verified 02/14/19 22:54 trimethoprim [From Bactrim] Allergy Swelling Verified 02/14/19 22:54 venom-honey bee Allergy Dyspnea Verified 02/14/19 22:54 [bee venom (honey bee)] BANDAIDS Allergy Rash/Hives Uncoded 11/04/18 08:54 Dye for gallbladder scan. Allergy Anaphylaxis Uncoded 11/04/18 08:54 tomatoes AdvReac Abdominal Uncoded 11/04/18 08:54 Pain Physical Exam Vitals: Vital Signs Temp Pulse Pulse Resp BP BP Pulse Ox 02/15/19 07:11 98.6 F 67 16 157/65 98 02/15/19 04:20 98.1 F 78 19 191/84 100 02/15/19 03:10 68 11 L 165/87 100 02/15/19 03:00 74 12 190/92 100 02/15/19 02:50 67 19 190/92 100 02/15/19 02:40 72 16 190/92 100 02/15/19 02:30 71 13 172/84 100 02/15/19 02:20 66 18 172/84 100 02/15/19 02:10 69 16 172/84 100 02/15/19 02:00 70 12 164/77 100 02/15/19 01:50 68 15 164/77 100 02/15/19 01:40 67 17 164/77 100 02/15/19 01:30 66 17 166/91 02/15/19 01:20 68 15 166/91 100 02/15/19 01:10 67 17 166/91 100 02/15/19 01:00 71 16 177/80 100 02/15/19 00:50 70 14 177/80 100 02/15/19 00:40 71 18 177/80 100 02/15/19 00:30 69 19 197/99 100 02/15/19 00:29 69 19 197/99 100 02/15/19 00:20 68 17 197/99 100 02/15/19 00:10 69 24 197/99 100 02/15/19 00:00 67 20 204/101 100 02/14/19 23:50 71 18 100 02/14/19 23:30 225/112 02/14/19 23:20 74 27 H 225/112 100 02/14/19 23:10 75 18 225/112 98 02/14/19 23:00 85 16 212/110 100 02/14/19 22:50 76 23 212/110 100 02/14/19 22:40 74 20 212/110 100 02/14/19 22:30 74 21 217/102 100 02/14/19 22:22 73 25 H 88 L 02/14/19 22:16 98.6 F 71 20 214/100 100 Intake and Output 02/14/19 02/15/19 02/15/19 22:59 06:59 14:59 Other: Weight 38.102 kg - Constitutional General appearance: cooperative, in acute distress, frail appearing - EENT Eyes: anicteric sclerae, PERRLA, normal appearance ENT: hearing grossly normal NG tube with bile-colored return. - Neck Neck: no lymphadenopathy, normal ROM, no other, no rigidity, no stridor, no thyr omegaly - Respiratory Respiratory: bilateral: CTA, negative: diminished, dullness, rales, rhonchi - Cardiovascular Rhythm: regular Heart sounds: normal: S1, S2 Abnormal Heart Sounds: no systolic murmur, no diastolic murmur, no rub, no S3 Gallop, no S4 Gallop, no click, no other - Gastrointestinal General gastrointestinal: normal bowel sounds, soft, generalized tenderness. - Integumentary Integumentary: no rash - Neurologic Neurologic: CNII-XII intact - Musculoskeletal Musculoskeletal: gait normal, strength equal bilaterally - Psychiatric Psychiatric: A&O x's 3, appropriate affect Results CBC & Chem 7: 02/14/19 22:40 02/15/19 00:20 Labs: Abnormal Lab Results - Last 24 Hours (Table) 02/14/19 02/15/19 Range/Units 22:40 00:20 RBC 3.30 L (3.80-5.40) m/uL Hgb 9.9 L (11.4-16.0) gm/dL Hct 30.9 L (34.0-46.0) % Plt Count 126 L (150-450) k/uL Sodium 136 L (137-145) mmol/L BUN 21 H (7-17) mg/dL Glucose 127 H (74-99) mg/dL Thrombosis Risk Factor Assmnt - DVT/VTE Prophylaxis DVT/VTE Prophylaxis: Pharmacologic Prophylaxis ordered Assessment and Plan Plan: 1. Small bowel obstruction. NG tube. Consult with Dr. Harris. Plan for small bowel series for further evaluation. If patient requires surgical intervention, she will require evaluation at tertiary care center. Continue morphine as needed for pain, Zofran as needed for nausea, IV fluids at 100 mL per hour. 2. Hypertensive emergency. Patient is on atenolol 12.5 mg at bedtime, clonidine 0.1 mg every 8 hours as needed. Add Vasotec 1.25 mg IV every 6 hours as needed for systolic blood pressure greater than 160. 3. Peripheral vascular disease with history of left common iliac artery stent graft with focal aneurysm 3.2 cm severe stenosis beyond aneurysm, right common iliac artery 2.6 cm with modest focal stenosis just beyond. Palpable aneurysm in the left lower quadrant, nontender to palpate. 4. Bilateral avascular necrosis bilateral femoral seen by Dr. Whipple orthopedic surgeon no intervention needed 5. History of Viridans strep bacteremia secondary to endovascular infection, endocarditis ruled out September 04 4 weeks IV vancomycin completed. 6. Chronic back pain. 7. Chronic anemia of chronic disease. Hemoglobin stable 8. PUD. 9. Hep C S/P Harvoni therapy. 10. Hyperlipidemia. Pravastatin on hold. Patient was unable to tolerate Lipitor. 11. Abdominal aortic aneurysm S/P endovascular stent. 12. Chronic tobacco use and dependence. Smoking cessation and counseling an increased risk of CAD, CVA, and malignancy. 13. Migraine Headache. Patient normally on Topamax 50 mg orally twice every day as well as Fioricet half a pill every 4 hours as needed. 14. Hypertension and hypertensive cardiovascular disease. Hold oral medications. Vasotec as needed 15. Restless leg syndrome. Continue Mirapex 0.125 mg orally at bedtime. 17. Obstructive sleep apnea. Stable. 18. Generalized anxiety disorder with panic disorder Depression, recurrent. Cymbalta 60 mg twice daily. 19. Overactive bladder. Patient is currently off oxybutynin. 20. Postmenopausal vaginal bleeding. Patient has been encouraged to follow-up with Dr. Lopez as an outpatient. 21. DVT prophylaxis. With SCDs and MILANA evee 22. GI prophylaxis. Pepcid IV. Estimated length of stay is 3 midnights. Discharge plan: To be determined Impression and plan of care have been directed as dictated by the signing physician. Coby Joaquin nurse practitioner acting as scribe for signing pushpa alas.
[2019-02-15] MEDS: NON-FORMULARY DRUG (Dexlansoprazole [Dexilant] 60 MG) PO SCH (16:39)
[2019-02-15] MEDS: MORPHINE SULFATE 4 MG/ML SYRINGE IV PRN ×2 (16:43→21:17)
[2019-02-15] MEDS: ATENOLOL 12.5 MG TAB PO SCH (21:01)
[2019-02-16] MEDS: IPRATROPIUM-ALBUTEROL 3 ML NEB INHALATION SCH ×4 (07:04→20:03)
[2019-02-16] MEDS: IPRATROPIUM 0.5 MG/2.5 ML NEBU INHALATION SCH ×3 (07:13→15:40)
[2019-02-16] MEDS: NON-FORMULARY DRUG (Dexlansoprazole [Dexilant] 60 MG) PO SCH (08:20)
[2019-02-16] MEDS: TOPIRAMATE 25 MG TAB PO SCH ×2 (08:30→21:17)
[2019-02-16] MEDS: DULoxetine HCL 60 MG CAPSULE.DR PO SCH ×2 (08:30→21:17)
[2019-02-16] MEDS ORDERED: LEVOTHYROXINE IVP 100 MCG/5 ML VIAL IV SCH (09:00)
[2019-02-16] MEDS ORDERED: FAMOTIDINE 20 MG/2 ML VIAL IV SCH (09:00)
--- NOTE | 2019-02-16 10:39 | P.CONS ---
History of Present Illness - Reason for Consult Consult date: 02/16/19 Esophageal dilation Requesting physician: Gloria Hernandez - Chief Complaint Abdominal pain - History of Present Illness 68-year-old female history of hepatitis C status post antiviral therapy, aortic aneurysm, admitted with small bowel obstruction with possible aortic aneurysm compression presently being decompressive via nasogastric tube. Consult requested for esophageal dilatation. Patient underwent EGD colonoscopy in October 2018 with no evidence of distal esophageal or duodenal stricture disease. Colonoscopy was incomplete secondary to poor prep. CT abdomen and pelvis reported mild gastric flu distention moderate gas and fluid distention of the duodenum to level third portion with findings recent possibility of partial obstruction at the level of crossing of the abdominal aorta. General surgery was consulted they are following closely. Passing small amount of flatus no BMs. Denies hematemesis hematochezia or melena. Presently white count 6.8. Hemoglobin 9.9. Platelet 126. BUN 21. Creatinine 1.0. NG tube with bilious fluid. Review of Systems Constitutional: Denies fever, chills, sweats, weight gain, or loss. HEENT: Negative for migraines, blurred vision or loss, earaches, drainage, tinnitus, oral mucosal lesions, dysphagia, or odynophagia. CARDIAC: Negative for chest pain, arrhythmias, or palpitation. RESPIRATORY: Negative for shortness of breath, hemoptysis, cough, or sputum production. GI: See HPI for pertinent findings. : Negative for hematuria, urgency, frequency, polyuria, or dysuria. GYNc: Denies possibility of . Negative vaginal discharge. MUSCULOSKELETAL: Negative for muscle aches, swelling, arthritis, and arthralgias. NEUROLOGIC: Negative for stroke or TIA. ENDOCRINE: Negative for thyroid problems. SKIN: Negative for rash or itching. PSYCHIATRIC: Negative history for depression and anxiety Past Medical History Past Medical History: Asthma, Coronary Artery Disease (CAD), Chest Pain / Angina, COPD, Deep Vein Thrombosis (DVT), GERD/Reflux, GI Bleed, Hypertension, Liver Disease, Memory Impairment, Myocardial Infarction (IN), Pneumonia, Respiratory Disorder, Sleep Apnea/CPAP/BIPAP, Vascular Disorder Additional Past Medical History / Comment(s): on 10/25/18 pt states was having pizza with family and food got stuck, pt had small amount of emesis. She went to bed and woke up to discover that she was incontinent of stool while she slept. Pt states that this has never happened. aLSO STATES THAT IT IS GETTING HARDER TO SWALLOW. Aortic aneurysm with stent-being monitored, Takosubu syndrome in 2016, R groin dissection/cardiac cath, recent bacteremia-blood cultures positive for veridans strep-completed antibiotics, bronchitis, home O2 at 3L/NC most of the time, LG without device-stable, DVT R leg, lower GI bleed, hepatitis C with Harvoni treatment, anemia with iron infusions x2, bilateral femoral head avascular necrosis, RLS, migraines, insomnia, constipation, overactive bladder, post menopausal bleed. Last Myocardial Infarction Date:: 07/2017 History of Any Multi-Drug Resistant Organisms: None Reported Past Surgical History: Bladder Surgery, Cholecystectomy, Heart Catheterization With Stent, Hysterectomy, Orthopedic Surgery Additional Past Surgical History / Comment(s): 11/28/17 lap albert, PCI with stent 2010, cardiac cath 07/2017-treat medically, common iliac artery stent 2005, exploratory lap, liver bx, R foot surgery d/t infection, R shoulder arthroscopic surgery, CAN, EGD, colonoscopy years ago, R leg varicose vein surgery, bladder suspension Past Anesthesia/Blood Transfusion Reactions: No Reported Reaction Date of Last Stent Placement:: 2010 Past Psychological History: Anxiety, Depression, Panic Disorder Additional Psychological History / Comment(s): PT RESIDES WITH HER SPOUSE WHO IS IN HIS 80'S AND IS NOT WELL. PT USES a walker. SHE NO LONGER DRIVES, FAMILY TAKES THEM TO THEIR APPTS. THEY HAVE VNA. pt stated has home 02 3 liters n/c, has cane/walker/wheel chair if needed. Smoking Status: Current every day smoker Past Alcohol Use History: None Reported Additional Past Alcohol Use History / Comment(s): She was a smoker starting in 1956. Smokes approx 5-8 cig.'s per day. Quit last Jun. but started again. Past Drug Use History: None Reported - Past Family History Brother(s) Family Medical History: Coronary Artery Disease (CAD), Myocardial Infarction (IN) Father Additional Family Medical History / Comment(s): FROM CIRRHOSIS OF THE LIVER Mother Family Medical History: COPD Additional Family Medical History / Comment(s): FROM AAA, HAD HX of TB. Medications and Allergies Home Medications Medication Instructions Recorded Confirmed Type Atenolol [Tenormin] 12.5 mg PO HS 05/12/14 06/30/19 History Sucralfate [Carafate] 1 gm PO AC-TID 12/27/13 02/14/19 History Pramipexole [Mirapex] 0.125 mg PO HS 09/12/14 02/14/19 History Tiotropium 18 Mcg/Puff [Spiriva] 1 cap INHALATION RT-BID 09/12/14 02/14/19 History DULoxetine HCL [Cymbalta] 60 mg PO BID 07/18/17 02/14/19 History Aspirin 81 mg PO DAILY chew 09/02/17 02/14/19 Rx Pravastatin Sodium [Pravachol] 80 mg PO HS #0 tab 09/02/17 02/14/19 Rx Cholecalciferol [Vitamin D3 (25 1,000 unit PO DAILY 12/12/17 02/14/19 History Mcg = 1000 Iu)] Dexlansoprazole [Dexilant] 60 mg PO DAILY 12/12/17 02/14/19 History Nitroglycerin Sl Tabs [Nitrostat] 0.4 mg SUBLINGUAL Q5M PRN 12/12/17 02/14/19 History guaiFENesin [Mucinex] 1,200 mg PO Q12H 12/12/17 02/14/19 History Albuterol Inhaler [Ventolin Hfa 1 - 2 puff INHALATION RT-Q6H PRN 10/08/18 02/14/19 History Inhaler] Butalb/APAP/Caff 50-325-40Mg 1 - 2 tab PO Q8H PRN 10/08/18 02/14/19 History [Fioricet 50-325-40] Calcium Carbonate/Vitamin D3 1 tab PO BID 10/08/18 02/14/19 History [Calcium 600-Vit D3 400 Caplet] Ipratropium-Albuterol Nebulize 3 ml INHALATION RT-QID 10/08/18 02/14/19 History [Duoneb 0.5 mg-3 mg/3 ml Soln] Topiramate [Topamax] 50 mg PO BID 10/08/18 02/14/19 History cloNIDine HCL [Catapres] 0.1 mg PO Q8H PRN 10/08/18 02/14/19 History cycloSPORINE [Restasis] 1 drop BOTH EYES BID 10/08/18 02/14/19 History Synthroid- 25 mcg PO HS 10/29/18 02/14/19 History ALPRAZolam [Xanax] 0.5 mg PO TID PRN 02/14/19 02/14/19 History SILVER sulfADIAZINE CREAM 1 applic TOPICAL DAILY 02/14/19 02/14/19 History [Silvadene Cream] Allergies Allergy/AdvReac Type Severity Reaction Status Date / Time naproxen sodium [From Aleve] Allergy Severe Anaphylaxis Verified 02/14/19 22:54 adhesive Allergy Rash/Hives Verified 02/14/19 22:54 cinnamon [Cinnamon] Allergy Dyspnea Verified 02/14/19 22:54 clindamycin Allergy Anaphylaxis Verified 02/14/19 22:54 codeine Allergy Nausea & Verified 02/14/19 22:54 Vomiting gentamicin [Gentamicin] Allergy SWELLING Verified 02/14/19 22:54 OF FACE W/ EYE DROPS paola Allergy Dyspnea Verified 02/14/19 22:54 Iodinated Contrast- Oral and Allergy Dyspnea Verified 02/14/19 22:54 IV Dye latex Allergy Rash/Hives Verified 02/14/19 22:54 levothyroxine sodium Allergy Unknown Verified 02/14/19 22:54 [From Synthroid] losartan Allergy Unknown Verified 02/14/19 22:54 montelukast sodium Allergy Wheezing Verified 02/14/19 22:54 [From Singulair] pantoprazole sodium Allergy Abdominal Verified 02/14/19 22:54 [From Protonix] Pain Penicillins Allergy Rash/Hives Verified 02/14/19 22:54 red dye Allergy Abdominal Verified 02/14/19 22:54 Pain Sulfa (Sulfonamide Allergy Swelling Verified 02/14/19 22:54 Antibiotics) IN MOUTH sulfamethoxazole Allergy swelling Verified 02/14/19 22:54 [From Bactrim] tongue sulfanilamide Allergy Unknown Verified 02/14/19 22:54 trimethoprim [From Bactrim] Allergy Swelling Verified 02/14/19 22:54 venom-honey bee Allergy Dyspnea Verified 02/14/19 22:54 [bee venom (honey bee)] BANDAIDS Allergy Rash/Hives Uncoded 11/04/18 08:54 Dye for gallbladder scan. Allergy Anaphylaxis Uncoded 11/04/18 08:54 tomatoes AdvReac Abdominal Uncoded 11/04/18 08:54 Pain Physical Exam Vitals: Vital Signs Temp Pulse Pulse Pulse Resp BP BP 02/16/19 07:13 76 02/16/19 07:06 76 02/16/19 06:55 98.3 F 76 16 133/60 02/16/19 01:50 98.6 F 64 17 114/64 02/15/19 19:05 98.4 F 65 17 119/62 02/15/19 17:18 78 16 02/15/19 17:07 77 16 02/15/19 16:00 63 18 02/15/19 14:38 98.1 F 63 18 159/76 Pulse Ox 02/16/19 07:13 02/16/19 07:06 02/16/19 06:55 95 02/16/19 01:50 100 02/15/19 19:05 100 02/15/19 17:18 02/15/19 17:07 95 02/15/19 16:00 02/15/19 14:38 100 Intake and Output 02/15/19 02/16/19 02/16/19 22:59 06:59 14:59 Intake Total 300 Balance 300 Intake: Intake, IV Titration 300 Amount Sodium Chloride 0.9% 1, 300 000 ml @ 100 mls/hr IV . Q10H CRISTA Rx#:[id number] Other: Voiding Method Toilet # Voids 1 1 1 General appearance: The patient is alert, oriented, in no acute distress. HET: Head is normocephalic and atraumatic. Pupils are equal and reactive. Oropharynx is clear without lesions. NG tube with bilious fluid. Neck: Supple without lymphadenopathy. Trachea midline. Heart: S1 S2. Regular rate and rhythm. Lungs: No crackles or wheezes are heard. Abdomen: Soft, mild tenderness diffusely across mid abdomen nondistended with bowel sounds slightly hypoactive. No peritoneal signs. No palpable organomegaly or masses. Extremities: Normal skin color and turgor. No cyanosis, rash, ulceration, clubbing, or edema. Radial and pedal pulses are 2/4 bilaterally. Neurological: No focal deficits. Strength and sensation are grossly intact. Results CBC & Chem 7: 02/14/19 22:40 02/15/19 00:20 CT scan - abdomen: report reviewed (Dr. Dye) Assessment and Plan (1) SBO (small bowel obstruction) Narrative/Plan: 68-year-old female admitted with acute abdominal pain nausea vomiting CT abdomen reported acute small bowel obstruction aortic aneurysm may be compressing the small bowel presently being decompressive via nasogastric tube. EGD colonoscopy October 2018 reported no evidence of esophageal or duodenal stricture disease. Colonoscopy incomplete secondary to poor prep. Current Visit: Yes Status: Acute Code(s): K56.609 - UNSP INTESTNL OBST, UNSP TO PARTIAL VERSUS COMPLETE OBST SNOMED Code(s): 383342921 Plan: 1. Agree with nasogastric decompression. Inpatient EGD is not planned at this time EGD October reported no evidence of esophageal or small bowel stricture disease. General and vascular surgery consulted. Continue GI prophylaxis. Thank you for this kind referral and the opportunity to participate in the care of your patient. This consultation was discussed with Dr. Dye. The impression and plan of care have been directed as dictated.
[2019-02-16] MEDS: MORPHINE SULFATE 4 MG/ML SYRINGE IV PRN ×3 (12:45→22:51)
--- NOTE | 2019-02-16 14:26 | P.PN ---
Subjective Progress Note Date: 02/16/19 Patient seen and examined at bedside. States she is tired and is not answering many questions. Nasogastric tube in place with significant output. States she still is having some abdominal pain. Objective - Vital Signs Vital signs: Vital Signs Temp 98.3 F 02/16/19 06:55 Pulse 76 02/16/19 10:59 Resp 16 02/16/19 06:55 BP 133/60 02/16/19 06:55 Pulse Ox 95 02/16/19 06:55 Intake & Output 02/15/19 02/16/19 02/16/19 18:59 06:59 18:59 Intake Total 300 Balance 300 Weight 38.102 kg Intake: Intake, IV Titration 300 Amount Sodium Chloride 0.9% 1, 300 000 ml @ 100 mls/hr IV . Q10H CRISTA Rx#:[id number] Other: Voiding Method Toilet # Voids 1 1 1 - Constitutional General appearance: Present: no acute distress - Gastrointestinal Gastrointestinal Comment(s): Soft, generalized tenderness to palpation, nondistended, no rebound, no guarding - Labs CBC & Chem 7: 02/14/19 22:40 02/15/19 00:20 Assessment and Plan (1) SBO (small bowel obstruction) Narrative/Plan: 68-year-old female with possible small bowel obstruction from compression from aortic aneurysm - CT of the abdomen and pelvis was again reviewed, the patient does appear to have a mechanical obstruction secondary to her significant cachectic status along with the size of her aortic aneurysm. Due to the fact that this symptomatology has occurred multiple times over the past year, the patient may require a bowel bypass procedure. I did discuss this case with the primary care physician and do recommend transfer to tertiary care center for further evaluation and for any surgical intervention. Current Visit: Yes Status: Acute Code(s): K56.609 - UNSP INTESTNL OBST, UNSP TO PARTIAL VERSUS COMPLETE OBST SNOMED Code(s): 694405657
--- NOTE | 2019-02-16 14:46 | P.DS ---
Providers Date of admission: 02/15/19 03:02 Expected date of discharge: 02/16/19 Attending physician: Gloria Hernandez Consults: 02/15/19 03:04 Consult Physician Urgent Consulting Provider: Berry Harris Consult Reason/Comments: SBO Do you want consulting provider notified?: Yes, Notify in am 02/15/19 10:24 Consult Physician Routine Consulting Provider: Victorino Braden Consult Reason/Comments: esophgeal dilatation, known to him Do you want consulting provider notified?: Yes 02/16/19 09:23 Consult Physician Routine Consulting Provider: Tim Costa Consult Reason/Comments: aortic aneurysm compressing duodumen (SBO) Do you want consulting provider notified?: Yes [facility] Course: This is a 68-year-old female one of Dr. Colbert patient with past medical history of hepatitis C post the Harvoni therapy, history of CAD with non-ST elevated myocardial infarction in April 2017 status post heart catheterization and stenting of the RCA with heavily calcified right and left coronary systems and recommendations to maximize medical treatment, COPD, asthma, chronic hypoxic respiratory failure on home O2 at 3 L nasal cannula, previous history of DVT along with Takosubu syndrome, GI bleed (April 2016). 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 Islas at that time. She presents to the emergency room with complaints of upper abdominal pain, chest pain and vomiting. The patient also states that she is having trouble swallowing food. She has had [address] Braden completed a scope done in October 2018. Patient states that after she had an omelette yesterday she developed vomiting with mucus and food. She denies having any fever or chills. She had last bowel movement was 3-4 days ago and she usually has a bowel movement every 2-3 days. She denies any blood in her stools. She uses MiraLAX daily which usually controls her constipation. She states she may have some choking on some food. She has cough with clear sputum production. She denies any rash. EGD performed October [address] Braden revealed very small sliding hiatal hernia with no obvious esophagitis R, K reflux disease. Mild antral gastritis. Colonoscopy was incomplete and random biopsy was completed. 12 no biopsy was benign intact mucosa with intact villous architecture. Gastric antrum biopsy showed chronic gastritis and evidence of chemical gastropathy. H. pylori not identified. Esophagus biopsy was benign squamous mucosa. Colon biopsy showed unremarkable mucosa. Patient came into [facility] emergency center for evaluation. She underwent a CAT scan of the chest abdomen and pelvis. Chest revealed advanced pulmonary emphysema with biapical upper lobe pleural branch mild scarring. No evidence of acute disease. Mild focal saccular aneurysm along the left lateral aspect of the thoracic aortic arch unchanged. Distended thoracic esophagus with residual debris level of GE junction. Abdomen and pelvis revealed mild gastric fluid distention and moderate gaseous and fluid distention of the duodenum to level of the third portion of the duodenum with findings raising possibility of partial obstruction at level of crossing of the abdominal aorta. Abundant colonic fecal debris suggestive constipation. Abdominal aortic aneurysm with indwelling aorta or iliac endoluminal stent graft not changed. Bilateral common iliac artery aneurysms minimally increased in size since 2018. Chest x-ray revealed COPD and chronic appearing changes. No definite acute process. White count was 6.8, hemoglobin 9.9, platelet count 126. BUN 21 creatinine 1.02, blood sugar 127. Initial blood pressure 225/112. Patient was given 1 dose of atenolol, morphine and Zofran and admitted to the MedSurg floor. NG tube was placed this morning. Consult with Dr. Harris. 02/16: Patient states she has massive lymphatic asthma not very much. No bowel movement since admission. Dr. Harris is concern regarding an abdominal aortic aneurysm that is currently being monitored by Dr. Costa. The size has not changed but it is putting compression on the duodenum causing small bowel obstruction. Patient will be transferred [facility] for thoracic and vascular surgeon consult for AAA bypass. This morning, patient is complaining of earache. She denies any nausea. NG tube remains in place. She has been afebrile, blood pressure 133/60, heart rate 76, pulse ox 95% on 2 L. Sodium 136, potassium 4.0, chloride 104, CO2 25, BUN 21, creatinine 1.07, blood sugar 127. A KUB of the abdomen will be ordered. Chest x-ray done yesterday reveals NG tube within the left upper quadrant likely in the gastric fundus. Correlate for COPD. Patient will be transferred to [facility] once all arrangements are completed. Discharge diagnoses: 1. Small bowel obstruction secondary to constriction caused by abdominal aortic aneurysm. 2. Hypertensive emergency. 3. Peripheral vascular disease with history of left common iliac artery stent graft with focal aneurysm 3.2 cm severe stenosis beyond aneurysm, right common iliac artery 2.6 cm with modest focal stenosis just beyond. 4. Bilateral avascular necrosis bilateral femoral seen by Dr. Whipple orthopedic surgeon no intervention needed 5. History of Viridans strep bacteremia secondary to endovascular infection, endocarditis ruled out September 04 4 weeks IV vancomycin completed. 6. Chronic back pain. 7. Chronic anemia of chronic disease. 8. PUD. 9. Hep C S/P Harvoni therapy. 10. Hyperlipidemia. 11. Abdominal aortic aneurysm S/P endovascular stent. 12. Chronic tobacco use and dependence. 13. Migraine Headache. 14. Hypertension and hypertensive cardiovascular disease. 15. Restless leg syndrome. 17. Obstructive sleep apnea. Stable. 18. Generalized anxiety disorder with panic disorder Depression, recurrent. 19. Overactive bladder. Patient is currently off oxybutynin. Impression and plan of care have been directed as dictated by the signing physician. Coby Joaquin nurse practitioner acting as scribe for signing physician. Patient Condition at Discharge: Stable Plan - Discharge Summary New Discharge Prescriptions: No Action Sucralfate [Carafate] 1 gm PO AC-TID Atenolol [Tenormin] 12.5 mg PO HS Tiotropium 18 Mcg/Puff [Spiriva] 1 cap INHALATION RT-BID Pramipexole [Mirapex] 0.125 mg PO HS DULoxetine HCL [Cymbalta] 60 mg PO BID Aspirin 81 mg PO DAILY chew Pravastatin Sodium [Pravachol] 80 mg PO HS #0 tab Cholecalciferol [Vitamin D3 (25 Mcg = 1000 Iu)] 1,000 unit PO DAILY Nitroglycerin Sl Tabs [Nitrostat] 0.4 mg SUBLINGUAL Q5M PRN PRN Reason: Chest Pain guaiFENesin [Mucinex] 1,200 mg PO Q12H Dexlansoprazole [Dexilant] 60 mg PO DAILY Calcium Carbonate/Vitamin D3 [Calcium 600-Vit D3 400 Caplet] 1 tab PO BID Ipratropium-Albuterol Nebulize [Duoneb 0.5 mg-3 mg/3 ml Soln] 3 ml INHALATION RT-QID Albuterol Inhaler [Ventolin Hfa Inhaler] 1 - 2 puff INHALATION RT-Q6H PRN PRN Reason: Shortness Of Breath cycloSPORINE [Restasis] 1 drop BOTH EYES BID cloNIDine HCL [Catapres] 0.1 mg PO Q8H PRN PRN Reason: SYSTOLIC BP OVER 160 Topiramate [Topamax] 50 mg PO BID Butalb/APAP/Caff 50-325-40Mg [Fioricet 50-325-40] 1 - 2 tab PO Q8H PRN PRN Reason: Migraine Headache Synthroid- 25 mcg PO HS SILVER sulfADIAZINE CREAM [Silvadene Cream] 1 applic TOPICAL DAILY ALPRAZolam [Xanax] 0.5 mg PO TID PRN PRN Reason: Anxiety Discharge Medication List Atenolol [Tenormin] 12.5 mg PO HS 12/27/13 [History] Sucralfate [Carafate] 1 gm PO AC-TID 12/27/13 [History] Pramipexole [Mirapex] 0.125 mg PO HS 09/12/14 [History] Tiotropium 18 Mcg/Puff [Spiriva] 1 cap INHALATION RT-BID 09/12/14 [History] DULoxetine HCL [Cymbalta] 60 mg PO BID 07/18/17 [History] Aspirin 81 mg PO DAILY chew 09/02/17 [Rx] Pravastatin Sodium [Pravachol] 80 mg PO HS #0 tab 09/02/17 [Rx] Cholecalciferol [Vitamin D3 (25 Mcg = 1000 Iu)] 1,000 unit PO DAILY 12/12/17 [History] Dexlansoprazole [Dexilant] 60 mg PO DAILY 12/12/17 [History] Nitroglycerin Sl Tabs [Nitrostat] 0.4 mg SUBLINGUAL Q5M PRN 12/12/17 [History] guaiFENesin [Mucinex] 1,200 mg PO Q12H 12/12/17 [History] Albuterol Inhaler [Ventolin Hfa Inhaler] 1 - 2 puff INHALATION RT-Q6H PRN 10/08/18 [History] Butalb/APAP/Caff 50-325-40Mg [Fioricet 50-325-40] 1 - 2 tab PO Q8H PRN 10/08/18 [History] Calcium Carbonate/Vitamin D3 [Calcium 600-Vit D3 400 Caplet] 1 tab PO BID 10/08/18 [History] Ipratropium-Albuterol Nebulize [Duoneb 0.5 mg-3 mg/3 ml Soln] 3 ml INHALATION RT-QID 10/08/18 [History] Topiramate [Topamax] 50 mg PO BID 10/08/18 [History] cloNIDine HCL [Catapres] 0.1 mg PO Q8H PRN 10/08/18 [History] cycloSPORINE [Restasis] 1 drop BOTH EYES BID 10/08/18 [History] Synthroid- 25 mcg PO HS 10/29/18 [History] ALPRAZolam [Xanax] 0.5 mg PO TID PRN 02/14/19 [History] SILVER sulfADIAZINE CREAM [Silvadene Cream] 1 applic TOPICAL DAILY 02/14/19 [History] Follow up Appointment(s)/Referral(s): Jenaro Colbert DO [Primary Care Provider] - 1-2 days
--- NOTE | 2019-02-16 15:20 | XR ---
EXAMINATION TYPE: XR KUB portable DATE OF EXAM: 02/16/2019 COMPARISON: 10/08/2018 HISTORY: 18-year-old female small bowel obstruction TECHNIQUE: Portable supine AP view FINDINGS: NG tube courses below the diaphragm, distal segment in the left upper quadrant. Aortobiiliac endovasc ular stent graft is demonstrated. Surgical clips in the bilateral axilla. No dilated small bowel loop s. There is moderate to large overall stool burden. IMPRESSION: 1. No dilated small bowel. Overall nonobstructive bowel gas pattern. 2. Moderate to large stool burden. 3. NG tube is present.
[2019-02-16] MEDS: SODIUM CHLORIDE 0.9% 1,000 ML IV SCH ×2 (18:01→21:18)
[2019-02-16] MEDS: ATENOLOL 12.5 MG TAB PO SCH (21:17)
--- NOTE | 2019-02-16 21:27 | CONS ---
DATE OF CONSULTATION: 02/16/2019 This is a 68 year old white female who is known to me from the past. She has history of abdominal aortic aneurysm. She has been coming on a regular basis for follow up in my office. The patient came with nausea, vomiting, and abdominal discomfort. The patient was seen by General surgery and evaluated. The patient had a CT scan of the abdomen which showed abdominal aortic aneurysm 3.3 x 4.2 cm. No evidence of endoleak. No evidence of any dissection. PHYSICAL EXAMINATION: Patient was seen in her room. She has NG tube. NECK: Supple. CHEST: Clear. Abdomen is pulsatile mass, nontender. Femoral pulses are palpable. The patient is stable from abdominal aortic aneurysm. The patient is going to [facility] for opinion. Thank you for the consultation. MELLISSA / YUNIOR: [id number] / PIPER
[2019-02-16 23:22] VITALS: BP 133/59; PULSE 100; RESP 17; TEMP 98.4
== END 2019-02-16 22:58 | disposition short-term general hospital (02) | DRG 389 ==
LOC: EC 22:01 → 4SSUR 02-15 03:02
PROVIDERS: ADMIT Family Medicine; ATTEND Family Medicine
DX: K56.699 Other intestinal obstruction unspecified as to partial versus complete obstruction (principal); F33.9 Major depressive disorder, recurrent, unspecified; I16.1 Hypertensive emergency; J96.11 Chronic respiratory failure with hypoxia; M87.9 Osteonecrosis, unspecified; R64 Cachexia; Z68.1 Body mass index [BMI] 19.9 or less, adult; Z86.19 Personal history of other infectious and parasitic diseases; D63.8 Anemia in other chronic diseases classified elsewhere; E78.5 Hyperlipidemia, unspecified; F17.210 Nicotine dependence, cigarettes, uncomplicated; F41.0 Panic disorder [episodic paroxysmal anxiety]; F41.1 Generalized anxiety disorder; G25.81 Restless legs syndrome; G43.909 Migraine, unspecified, not intractable, without status migrainosus; G47.33 Obstructive sleep apnea (adult) (pediatric); Z99.89 Dependence on other enabling machines and devices; G89.29 Other chronic pain; I11.9 Hypertensive heart disease without heart failure; I25.10 Atherosclerotic heart disease of native coronary artery without angina pectoris; I25.2 Old myocardial infarction; I71.4 Abdominal aortic aneurysm, without rupture; I72.3 Aneurysm of iliac artery; I73.9 Peripheral vascular disease, unspecified; J43.9 Emphysema, unspecified; K21.9 Gastro-esophageal reflux disease without esophagitis; Z87.11 Personal history of peptic ulcer disease; K44.9 Diaphragmatic hernia without obstruction or gangrene; N32.81 Overactive bladder; N95.0 Postmenopausal bleeding; R13.10 Dysphagia, unspecified; Z79.82 Long term (current) use of aspirin; Z79.899 Other long term (current) drug therapy; Z82.49 Family history of ischemic heart disease and other diseases of the circulatory system; Z82.5 Family history of asthma and other chronic lower respiratory diseases; Z86.718 Personal history of other venous thrombosis and embolism; Z90.710 Acquired absence of both cervix and uterus; Z95.5 Presence of coronary angioplasty implant and graft; Z99.81 Dependence on supplemental oxygen; G47.00 Insomnia, unspecified; Z88.5 Allergy status to narcotic agent; Z88.0 Allergy status to penicillin; Z88.2 Allergy status to sulfonamides; Z88.8 Allergy status to other drugs, medicaments and biological substances; Z88.6 Allergy status to analgesic agent; Z88.1 Allergy status to other antibiotic agents; Z91.030 Bee allergy status; Z91.041 Radiographic dye allergy status; Z91.040 Latex allergy status; K59.00 Constipation, unspecified; Z90.49 Acquired absence of other specified parts of digestive tract
CPT/HCPCS: 36415; 71045; 71250; 74018; 74176; 80048; 83880; 84484; 85025; 93005; 94640; 94760

== ENCOUNTER 2019-02-28 11:22 | Inpatient (IN) | payer MEDICARE ==
[2019-02-28] MEDS ORDERED: SODIUM CHLORIDE 0.9% 1,000 ML IV ONE (11:54)
[2019-02-28] MEDS ORDERED: ASPIRIN 81 MG PO STA (11:54)
--- NOTE | 2019-02-28 11:58 | ED ---
General Adult HPI - General Chief complaint: Shortness of Breath Stated complaint: Weakness Time Seen by Provider: 02/28/19 11:41 Source: patient, EMS Mode of arrival: EMS Limitations: no limitations - History of Present Illness Initial comments: Patient is 68-year-old female with a history of severe COPD, atrial fibrillation, hepatitis C who presents with a chief complaint of acute onset weakness this morning. The patient states that she began feeling very weak and lightheaded she was having a bowel movement. Patient's family called EMS, when EMS arrived she was in atrial fibrillation with RVR. Patient cannot identify any inciting incidences to her symptoms, there were no aggravating or alleviating factors. Timing is constant. She denies chest pain but admits to shortness of breath and lightheadedness. - Related Data Home Medications Medication Instructions Recorded Confirmed Atenolol [Tenormin] 12.5 mg PO HS 12/27/13 02/28/19 Sucralfate [Carafate] 1 gm PO AC-TID 12/27/13 02/28/19 Pramipexole [Mirapex] 0.125 mg PO HS 09/12/14 02/28/19 Tiotropium 18 Mcg/Puff [Spiriva] 1 cap INHALATION RT-BID 09/12/14 02/28/19 DULoxetine HCL [Cymbalta] 60 mg PO BID 07/18/17 02/28/19 Dexlansoprazole [Dexilant] 60 mg PO DAILY 12/12/17 02/28/19 Nitroglycerin Sl Tabs [Nitrostat] 0.4 mg SUBLINGUAL Q5M PRN 12/12/17 02/28/19 guaiFENesin [Mucinex] 1,200 mg PO Q12H 12/12/17 02/28/19 Albuterol Inhaler [Ventolin Hfa 1 - 2 puff INHALATION RT-Q6H PRN 10/08/18 02/28/19 Inhaler] Butalb/APAP/Caff 50-325-40Mg 1 - 2 tab PO Q8H PRN 10/08/18 02/28/19 [Fioricet 50-325-40] Calcium Carbonate/Vitamin D3 1 tab PO BID 10/08/18 02/28/19 [Calcium 600-Vit D3 400 Caplet] Ipratropium-Albuterol Nebulize 3 ml INHALATION RT-QID 10/08/18 02/28/19 [Duoneb 0.5 mg-3 mg/3 ml Soln] Topiramate [Topamax] 50 mg PO BID 10/08/18 02/28/19 cycloSPORINE [Restasis] 1 drop BOTH EYES BID 10/08/18 02/28/19 ALPRAZolam [Xanax] 0.5 mg PO TID PRN 02/14/19 02/28/19 SILVER sulfADIAZINE CREAM 1 applic TOPICAL DAILY 02/14/19 02/28/19 [Silvadene Cream] Levothyroxine Sodium [Synthroid] 25 mcg PO DAILY 02/28/19 02/28/19 Multivitamins, Thera [Multivitamin 1 tab PO DAILY 02/28/19 02/28/19 (formulary)] Nebivolol [Bystolic] 5 mg PO BID 02/28/19 02/28/19 Previous Rx's Medication Instructions Recorded Aspirin 81 mg PO DAILY chew 09/02/17 Pravastatin Sodium [Pravachol] 80 mg PO HS #0 tab 09/02/17 Allergies Allergy/AdvReac Type Severity Reaction Status Date / Time naproxen sodium [From Aleve] Allergy Severe Anaphylaxis Verified 02/28/19 11:44 adhesive Allergy Rash/Hives Verified 02/28/19 11:44 cinnamon [Cinnamon] Allergy Dyspnea Verified 02/28/19 11:44 clindamycin Allergy Anaphylaxis Verified 02/28/19 11:44 codeine Allergy Nausea & Verified 02/28/19 11:44 Vomiting gentamicin [Gentamicin] Allergy SWELLING Verified 02/28/19 11:44 OF FACE W/ EYE DROPS paola Allergy Dyspnea Verified 02/28/19 11:44 Iodinated Contrast- Oral and Allergy Dyspnea Verified 02/28/19 11:44 IV Dye latex Allergy Rash/Hives Verified 02/28/19 11:44 levothyroxine sodium Allergy Unknown Verified 02/28/19 11:44 [From Synthroid] losartan Allergy Unknown Verified 02/28/19 11:44 montelukast sodium Allergy Wheezing Verified 02/28/19 11:44 [From Singulair] pantoprazole sodium Allergy Abdominal Verified 02/28/19 11:44 [From Protonix] Pain Penicillins Allergy Rash/Hives Verified 02/28/19 11:44 red dye Allergy Abdominal Verified 02/28/19 11:44 Pain Sulfa (Sulfonamide Allergy Swelling Verified 02/28/19 11:44 Antibiotics) IN MOUTH sulfamethoxazole Allergy swelling Verified 02/28/19 11:44 [From Bactrim] tongue sulfanilamide Allergy Unknown Verified 02/28/19 11:44 trimethoprim [From Bactrim] Allergy Swelling Verified 02/28/19 11:44 venom-honey bee Allergy Dyspnea Verified 02/28/19 11:44 [bee venom (honey bee)] BANDAIDS Allergy Rash/Hives Uncoded 02/28/19 11:30 Dye for gallbladder scan. Allergy Anaphylaxis Uncoded 02/28/19 11:30 tomatoes AdvReac Abdominal Uncoded 02/28/19 11:30 Pain Review of Systems ROS Statement: Those systems with pertinent positive or pertinent negative responses have been documented in the HPI. ROS Other: All systems not noted in ROS Statement are negative. Respiratory: Reports: dyspnea Cardiovascular: Reports: dyspnea on exertion Gastrointestinal: Reports: nausea Past Medical History Past Medical History: Atrial Fibrillation, Asthma, Coronary Artery Disease (CAD), Chest Pain / Angina, COPD, Deep Vein Thrombosis (DVT), GERD/Reflux, GI Bleed, Hypertension, Liver Disease, Memory Impairment, Myocardial Infarction ([place]), Pneumonia, Respiratory Disorder, Sleep Apnea/CPAP/BIPAP, Vascular Disorder Additional Past Medical History / Comment(s): on 10/25/18 pt states was having pizza with family and food got stuck, pt had small amount of emesis. She went to bed and woke up to discover that she was incontinent of stool while she slept. Pt states that this has never happened. aLSO STATES THAT IT IS GETTING HARDER TO SWALLOW. Aortic aneurysm with stent-being monitored, Takosubu syndrome in 2016, R groin dissection/cardiac cath, recent bacteremia-blood cultures positive for veridans strep-completed antibiotics, bronchitis, home O2 at 3L/NC most of the time, LG without device-stable, DVT R leg, lower GI bleed, hepatitis C with Harvoni treatment, anemia with iron infusions x2, bilateral femoral head avascular necrosis, RLS, migraines, insomnia, constipation, overactive bladder, post menopausal bleed. Last Myocardial Infarction Date:: 07/2017 History of Any Multi-Drug Resistant Organisms: None Reported Past Surgical History: Bladder Surgery, Cholecystectomy, Heart Catheterization With Stent, Hysterectomy, Orthopedic Surgery Additional Past Surgical History / Comment(s): 11/28/17 lap albert, PCI with stent 2010, cardiac cath 07/2017-treat medically, common iliac artery stent 2005, exploratory lap, liver bx, R foot surgery d/t infection, R shoulder arthroscopic surgery, CAN, EGD, colonoscopy years ago, R leg varicose vein surgery, bladder suspension Past Anesthesia/Blood Transfusion Reactions: No Reported Reaction Date of Last Stent Placement:: 2010 Past Psychological History: Anxiety, Depression, Panic Disorder Smoking Status: Current every day smoker Past Alcohol Use History: None Reported Past Drug Use History: None Reported - Past Family History Brother(s) Family Medical History: Coronary Artery Disease (CAD), Myocardial Infarction ([place]) Father Additional Family Medical History / Comment(s): FROM CIRRHOSIS OF THE LIVER Mother Family Medical History: COPD Additional Family Medical History / Comment(s): FROM AAA, HAD HX of TB. General Exam Limitations: no limitations General appearance: alert, in no apparent distress Head exam: Present: atraumatic, normocephalic Eye exam: Present: normal appearance ENT exam: Present: normal exam, mucous membranes dry Neck exam: Present: normal inspection Respiratory exam: Present: decreased breath sounds. Absent: respiratory distress, wheezes Cardiovascular Exam: Present: regular rate, normal rhythm GI/Abdominal exam: Present: soft. Absent: distended, tenderness Rectal exam: Present: deferred Extremities exam: Present: normal inspection Back exam: Present: normal inspection Neurological exam: Present: alert, oriented X3, CN II-XII intact Psychiatric exam: Present: normal affect, normal mood Skin exam: Present: warm, dry, intact Course Vital Signs 02/28/19 02/28/19 02/28/19 11:25 12:00 12:07 Temperature 97.4 F L Pulse Rate 121 H 66 Respiratory 18 22 18 Rate Blood Pressure 105/62 122/49 O2 Sat by Pulse 100 99 Oximetry 02/28/19 02/28/19 02/28/19 13:24 14:01 14:21 Temperature Pulse Rate 67 64 70 Respiratory 18 22 Rate Blood Pressure 137/78 137/78 O2 Sat by Pulse 99 98 Oximetry 02/28/19 14:26 Temperature Pulse Rate 68 Respiratory Rate Blood Pressure O2 Sat by Pulse Oximetry Medical Decision Making - Medical Decision Making Patient presents with a chief complaint of weakness and shortness of breath. On initial evaluation, vital signs show tachycardia likely secondary to atrial fibrillation however when patient was examined, she converted to normal sinus rhythm with a rate of 68. EKG performed at 1150 shows sinus rhythm with a rate of 60 bpm, QT segment is mildly prolonged at 512, EKG otherwise did not show any acute signs of ischemia. Patient to be evaluated basically including cardiac enzymes, chest x-ray, venous blood gas, was given a liter of fluid. 1:12 PM Reevaluation of this patient shows mild respiratory acidosis with a pH of 7.23 there is ALBERT with a creatinine of 1.21 today, likely secondary to dehydration given her clinical presentation. X-ray does not show any infiltrate, only s table findings of COPD. BNP is 15,000 though patient does not appear to be in heart failure clinically, there is no lower extremity edema, no rales heard on exam, x-ray does not show overt congestive heart failure. This is likely secondary to COPD. Initial troponin is negative. Currently pending urinalysis. On reevaluation, the patient remains stable, she'll be admitted for further evaluation. 2:02 PM Case discussed with Dr. Weaver who accepts admission with consult to cardiology. Patient stable and comfortable on re-examination. Will trend troponins, and await d-dimer / T4 in the ED. 3:02 PM Dimer is elevated over 20. Patient has anaphylaxis to contrast medium, VQ scan ordered. Case discussed with Dr. Naylor who agrees with prophylactic heparinization. - Lab Data Result diagrams: 02/28/19 11:30 02/28/19 11:30 Lab Results 02/28/19 02/28/19 02/28/19 Range/Units 11:30 11:30 11:30 WBC 8.9 (3.8-10.6) k/uL RBC 3.58 L (3.80-5.40) m/uL Hgb 10.8 L (11.4-16.0) gm/dL Hct 34.7 (34.0-46.0) % MCV 97.0 (80.0-100.0) fL MCH 30.1 (25.0-35.0) pg MCHC 31.0 (31.0-37.0) g/dL RDW 14.3 (11.5-15.5) % Plt Count 253 D (150-450) k/uL Neutrophils % 69 % Lymphocytes % 23 % Monocytes % 3 % Eosinophils % 3 % Basophils % 1 % Neutrophils # 6.1 (1.3-7.7) k/uL Lymphocytes # 2.1 (1.0-4.8) k/uL Monocytes # 0.3 (0-1.0) k/uL Eosinophils # 0.2 (0-0.7) k/uL Basophils # 0.0 (0-0.2) k/uL Hypochromasia Slight D-Dimer (<0.60) mg/L FEU VBG pH (7.31-7.41) VBG pCO2 (37-51) mmHg VBG HCO3 (24-28) mmol/L Sodium 139 (137-145) mmol/L Potassium 4.6 (3.5-5.1) mmol/L Chloride 109 H (98-107) mmol/L Carbon Dioxide 19 L (22-30) mmol/L Anion Gap 11 mmol/L BUN 19 H (7-17) mg/dL Creatinine 1.21 H (0.52-1.04) mg/dL Est GFR (CKD-EPI)AfAm 53 (>60 ml/min/1.73 sqM) Est GFR (CKD-EPI)NonAf 46 (>60 ml/min/1.73 sqM) Glucose 154 H (74-99) mg/dL Calcium 8.9 (8.4-10.2) mg/dL Total Bilirubin 0.7 (0.2-1.3) mg/dL AST 26 (14-36) U/L ALT 13 (9-52) U/L Alkaline Phosphatase 131 H (38-126) U/L Troponin I (0.000-0.034) ng/mL NT-Pro-B Natriuret Pep 12776 pg/mL Total Protein 6.1 L (6.3-8.2) g/dL Albumin 3.4 L (3.5-5.0) g/dL TSH 14.400 H (0.465-4.680) mIU/L Free T4 1.30 (0.78-2.19) ng/dL 02/28/19 02/28/19 02/28/19 Range/Units 11:30 11:30 12:07 WBC (3.8-10.6) k/uL RBC (3.80-5.40) m/uL Hgb (11.4-16.0) gm/dL Hct (34.0-46.0) % MCV (80.0-100.0) fL MCH (25.0-35.0) pg MCHC (31.0-37.0) g/dL RDW (11.5-15.5) % Plt Count (150-450) k/uL Neutrophils % % Lymphocytes % % Monocytes % % Eosinophils % % Basophils % % Neutrophils # (1.3-7.7) k/uL Lymphocytes # (1.0-4.8) k/uL Monocytes # (0-1.0) k/uL Eosinophils # (0-0.7) k/uL Basophils # (0-0.2) k/uL Hypochromasia D-Dimer 20.83 H (<0.60) mg/L FEU VBG pH 7.23 L (7.31-7.41) VBG pCO2 45 (37-51) mmHg VBG HCO3 18 L (24-28) mmol/L Sodium (137-145) mmol/L Potassium (3.5-5.1) mmol/L Chloride (98-107) mmol/L Carbon Dioxide (22-30) mmol/L Anion Gap mmol/L BUN (7-17) mg/dL Creatinine (0.52-1.04) mg/dL Est GFR (CKD-EPI)AfAm (>60 ml/min/1.73 sqM) Est GFR (CKD-EPI)NonAf (>60 ml/min/1.73 sqM) Glucose (74-99) mg/dL Calcium (8.4-10.2) mg/dL Total Bilirubin (0.2-1.3) mg/dL AST (14-36) U/L ALT (9-52) U/L Alkaline Phosphatase (38-126) U/L Troponin I 0.014 (0.000-0.034) ng/mL NT-Pro-B Natriuret Pep pg/mL Total Protein (6.3-8.2) g/dL Albumin (3.5-5.0) g/dL TSH (0.465-4.680) mIU/L Free T4 (0.78-2.19) ng/dL Disposition Clinical Impression: COPD exacerbation, Near syncope, Elevated d-dimer, Atrial fibrillation with RVR, Fatigue Disposition: ADMITTED IP TO THIS HOSP Condition: Fair Is patient prescribed a controlled substance at d/c from ED?: No Referrals: Jenaro Colbert DO [Primary Care Provider] - 1-2 days Decision to Admit Reason: Admit from EC - Out of Hospital Transfer - Req. Specs Out of Hospital Transfer - Requested Specifics: Telemetry Unit
[2019-02-28 12:07] LABS: Basophils % (A) 1 %; Eosinophils # (A) 0.2 k/uL (0-0.7); Eosinophils % (A) 3 %; HCT 34.7 % (34.0-46.0); HGB 10.8 gm/dL (11.4-16.0); Hypochromasia Slight; Lymphocytes # (A) 2.1 k/uL (1.0-4.8); Lymphocytes % (A) 23 %; MCH 30.1 pg (25.0-35.0); Mean Platelet Volume 7.8; Monocytes # (A) 0.3 k/uL (0-1.0); Monocytes % (A) 3 %; Neutrophils # (A) 6.1 k/uL (1.3-7.7); Neutrophils % (A) 69 %; RBC 3.58 m/uL (3.80-5.40); RDW 14.3 % (11.5-15.5); WBC 8.9 k/uL (3.8-10.6)
[2019-02-28 12:15] LABS: Platelet Count 253 k/uL (150-450)
[2019-02-28 12:17] LABS: Albumin 3.4 g/dL (3.5-5.0); Calcium 8.9 mg/dL (8.4-10.2); Potassium 4.6 mmol/L (3.5-5.1); Total Bilirubin 0.7 mg/dL (0.2-1.3); Total Protein 6.1 g/dL (6.3-8.2)
--- NOTE | 2019-02-28 12:24 | XR ---
EXAMINATION TYPE: XR chest 2V DATE OF EXAM: 02/28/2019 COMPARISON: Chest x-ray February 15, 2019. CT February 14, 2019. HISTORY: Chest pain and shortness of breath TECHNIQUE: Frontal and lateral views of the chest are obtained. FINDINGS: Background chronic emphysematous and parenchymal changes bilaterally remains present . Ther e is new small tiny left pleural effusion and associated left basilar atelectasis and/or infiltrate. Right lung remains clear. The cardiac silhouette size remains within normal limits. Surgical change t o cervical spine is partially imaged. Metallic abdominal aortic stent graft is partially imaged. IMPRESSION: Chronic emphysematous and parenchymal changes with new small to tiny left pleural effusi on and associated left basilar atelectasis and/or infiltrate.
[2019-02-28 12:33] LABS: VBG PH 7.23 (7.31-7.41)
[2019-02-28] MEDS ORDERED: methylPREDNISolone SOD SUCCI 125 MG/2 ML VIAL IV STA (13:02)
[2019-02-28] MEDS ORDERED: IPRATROPIUM-ALBUTEROL 3 ML NEB INHALATION STA (13:02)
[2019-02-28] MEDS ORDERED: NALOXONE 0.4 MG/ML 1 ML VIAL IV PRN (14:00)
[2019-02-28 14:14] LABS: T4, Free (Free Thyroxine) 1.3 ng/dL (0.78-2.19)
[2019-02-28] MEDS ORDERED: HEPARIN SODIUM,PORCINE 5,000 UNIT/ML 1 ML VIAL IV PRN (15:04)
[2019-02-28] MEDS ORDERED: HEPARIN SODIUM,PORCINE 10,000 UNIT/ML 1 ML VIAL IV ONE (15:04)
[2019-02-28] MEDS ORDERED: HEPARIN SOD,PORK IN 0.45% NACL 25,000 UNIT in 0.45% NACL 1 250ML.BAG IV SCH (15:15)
[2019-02-28] MEDS ORDERED: DICYCLOMINE 20 MG TAB PO STA (16:09)
[2019-02-28 16:30] LABS: Prothrombin Time 10.3 sec (9.0-12.0)
[2019-02-28 17:17] LABS: Partial Thromboplastin Time 21.7 sec (22.0-30.0)
--- NOTE | 2019-02-28 17:24 | NM ---
EXAMINATION TYPE: NM pul vent and perfuse DATE OF EXAM: 02/28/2019 COMPARISON: Same day chest x-ray. HISTORY: Weakness and shortness of breath. TECHNIQUE: Utilizing inhalation of 64.2 mCi Tc 99m DTPA aerosol and intravenous injection of 4.3 mCi of Tc 99m MAA, ventilation and perfusion images are acquired post injection in multiple projections. FINDINGS: Heterogeneous radiotracer uptake is present diminished and upper lungs correlating with underlying si gnificant COPD. Small to moderate-sized matching defects are present most prominent upper lungs. No m ismatch defects are clearly seen. IMPRESSION: Low scintigraphic evidence for pulmonary embolism.
[2019-02-28] MEDS ORDERED: NITROGLYCERIN SL TABS 0.4 MG TAB SUBLINGUAL PRN (20:53)
[2019-02-28] MEDS ORDERED: ALPRAZolam 0.5 MG TAB PO PRN (20:53)
[2019-02-28] MEDS ORDERED: BUTALB/APAP/CAFF 50-325-40MG TAB PO PRN (20:53)
[2019-02-28] MEDS ORDERED: ALBUTEROL NEBULIZED 2.5 MG/3 ML INHALATION PRN (20:53)
[2019-02-28] MEDS ORDERED: ATENOLOL 25 MG TAB PO SCH (21:00)
[2019-02-28] MEDS: CALCIUM CARB-VIT D 500MG-200UN 1 EACH TAB PO SCH (21:38)
[2019-02-28] MEDS: DULoxetine HCL 60 MG CAPSULE.DR PO SCH (21:38)
[2019-02-28] MEDS: TOPIRAMATE 25 MG TAB PO SCH (21:39)
[2019-02-28] MEDS: PRAVASTATIN SODIUM 80 MG TAB PO SCH (21:39)
[2019-02-28] MEDS: guaiFENesin 600 MG TABLET.ER PO SCH (21:41)
[2019-02-28 22:02] LABS: Appearance,Urine Clear (Clear); Bacteria,Urine Rare /hpf; Bilirubin,Urine Negative (Negative); Blood,Urine Negative (Negative); Color,Urine Yellow; Glucose,Urine (UA) Negative (Negative); Hyaline Casts,Urine 10 /lpf (0-2); Ketones,Urine Trace (Negative); Leukocyte Esterase,Urine Negative (Negative); Mucus,Urine Occasional /hpf; Nitrite,Urine Negative (Negative); PH, Urine 5.5 (5.0-8.0); Protein,Urine 1+ (Negative); RBC,Urine 2 /hpf (0-5); Specific Gravity,Urine 1.018 (1.001-1.035); Squamous Epithelial Cell,Urine 1 /hpf (0-4); Urobilinogen,Urine <2.0 mg/dL (<2.0); WBC,Urine 1 /hpf (0-5)
[2019-02-28] MEDS: PRAMIPEXOLE 0.125 MG TAB PO SCH (22:25)
[2019-02-28] MEDS: NEBIVOLOL 5 MG TAB PO SCH (22:25)
[2019-02-28] MEDS: cycloSPORINE 0.05% OPHTH 0.4 ML DROPERETTE BOTH EYES SCH (22:25)
[2019-02-28] MEDS: MULTIVITAMINS, THERA 1 EACH TAB PO SCH (22:25)
[2019-03-01] MEDS ORDERED: LEVOTHYROXINE 25 MCG TAB PO SCH (06:30)
[2019-03-01] MEDS: SUCRALFATE 1 GM TAB PO SCH ×3 (06:46→17:03)
[2019-03-01 07:44] LABS: Basophils % (A) 0 %; Eosinophils % (A) 0 %; HCT 29.6 % (34.0-46.0); HGB 9.5 gm/dL (11.4-16.0); Lymphocytes # (A) 1.5 k/uL (1.0-4.8); Lymphocytes % (A) 16 %; MCH 30.5 pg (25.0-35.0); MCV 95.2 fL (80.0-100.0); Mean Platelet Volume 7.7; Monocytes # (A) 0.4 k/uL (0-1.0); Monocytes % (A) 4 %; Neutrophils # (A) 7.4 k/uL (1.3-7.7); Neutrophils % (A) 78 %; Platelet Count 231 k/uL (150-450); RDW 14.2 % (11.5-15.5); WBC 9.5 k/uL (3.8-10.6)
[2019-03-01] MEDS: IPRATROPIUM-ALBUTEROL 3 ML NEB INHALATION SCH ×4 (08:00→19:32)
[2019-03-01] MEDS ORDERED: NON-FORMULARY DRUG (Tiotropium 18 Mcg/Puff 1 CAP) INHALATION SCH (08:00)
[2019-03-01 08:02] LABS: Calcium 9.1 mg/dL (8.4-10.2); Potassium 4.4 mmol/L (3.5-5.1)
[2019-03-01] MEDS: guaiFENesin 600 MG TABLET.ER PO SCH ×2 (09:49→20:12)
[2019-03-01] MEDS: TOPIRAMATE 25 MG TAB PO SCH ×2 (09:49→20:10)
[2019-03-01] MEDS: MULTIVITAMINS, THERA 1 EACH TAB PO SCH (09:49)
[2019-03-01] MEDS: ASPIRIN 81 MG PO SCH (09:49)
[2019-03-01] MEDS: CALCIUM CARB-VIT D 500MG-200UN 1 EACH TAB PO SCH ×2 (09:49→20:14)
[2019-03-01] MEDS: DULoxetine HCL 60 MG CAPSULE.DR PO SCH ×2 (09:49→20:13)
[2019-03-01] MEDS: cycloSPORINE 0.05% OPHTH 0.4 ML DROPERETTE BOTH EYES SCH ×2 (09:50→20:12)
[2019-03-01] MEDS: Dexlansoprazole [Dexilant] 60 MG PO SCH (09:50)
[2019-03-01] MEDS: NEBIVOLOL 5 MG TAB PO SCH ×2 (09:50→20:11)
[2019-03-01] MEDS: DICYCLOMINE 20 MG TAB PO PRN ×2 (09:56→20:11)
--- NOTE | 2019-03-01 10:45 | P.CRDCN ---
<Katie Aguirre E - Last Filed: 03/01/19 10:27> History of Present Illness Consult date: 03/01/19 Requesting physician: Pavel Weaver Consult reason: sycope Chief complaint: Syncope History of present illness: This is a pleasant 68-year-old female who follows regularly with Dr. VC Garcia in the office. She had past medical history significant for hypertension, hyperlipidemia, DVT, GERD, COPD, coronary artery disease, patient underwent a cardiac catheterization in July 2017 which revealed a mid RCA stent which was patent, circumflex 30% diseased, proximal LAD 30-40% and 30% in the midportion. History of aortic aneurysm with stent graft in 2005, history also of anemia. Patient was in the hospital most recently in November 2017 with symptoms of difficulty in swallowing with associated vomiting and diarrhea. She was subsequently transferred to [facility] because of suspicion of issues with her abdominal aortic aneurysm. According to the patient on arrival there and after testing it was found that her aneurysm was stable. Patient did undergo upper GI and full GI workup also at [facility] which the she reported to be normal. Patient states she had episodes of atrial fibrillation while she was there, she was on IV heparin but not started on oral anticoagulation, this is all verbal per the patient. Patient presents to the hospital on this admission following a syncopal episode. According to the patient, she was having a bowel movement, and may have been straining, she states that she became so weak she cannot even flush the toilet. She was standing up washing her hands, and continues to feel progressively more and more weak, she opened the door and called for her grandson who brought her into the computer room to sit her on a chair, as he was attempting to do that she apparently lost consciousness for a few seconds, she was quite clammy. EMS was then called and the patient was brought to the hospital for further evaluation and treatment. Chest x-ray on admission here showed chronic emphysema and parenchymal changes with new tiny left pleural effusion noted. EKG on arrival here showed a normal sinus rhythm with ST-T wave changes noted in the anterior leads and mild ST depression in the lateral leads. Lung perfusion scan showed low evidence for pulmonary embolism. Blood pressure 134/60 with a heart rate in the 70s. White blood cell count 9.5, hemoglobin 9.5, platelet count 231. D-dimer 20.8, pH on admission 7.2 pCO2 45 HCO3 18, sodium 140, potassium 4.4, BUN 22 and creatinine 0.9. Creatinine on admission was 1.2. Troponins 0.014, 0.044, 0.026. BNP level 15,000, TSH level 14.4. The time of my examination this morning the patient is resting comfo rtably in bed, no complaints at present. Past Medical History Past Medical History: Atrial Fibrillation, Asthma, Coronary Artery Disease (CAD), Chest Pain / Angina, COPD, Deep Vein Thrombosis (DVT), GERD/Reflux, GI Bleed, Hypertension, Liver Disease, Memory Impairment, Myocardial Infarction (LA), Pneumonia, Respiratory Disorder, Sleep Apnea/CPAP/BIPAP, Vascular Disorder Additional Past Medical History / Comment(s): on 10/25/18 pt states was having pizza with family and food got stuck, pt had small amount of emesis. She went to bed and woke up to discover that she was incontinent of stool while she slept. Pt states that this has never happened. aLSO STATES THAT IT IS GETTING HARDER TO SWALLOW. HEP C. Aortic aneurysm with stent-being monitored, Takosubu syndrome in 2016, R groin dissection/cardiac cath, recent bacteremia-blood cultures positive for veridans strep-completed antibiotics, bronchitis, home O2 at 3L/NC most of the time, LG without device-stable, DVT R leg, lower GI bleed, hepatitis C with Harvoni treatment, anemia with iron infusions x2, bilateral femoral head avascular necrosis, RLS, migraines, insomnia, constipation, overactive bladder, post menopausal bleed. Last Myocardial Infarction Date:: 07/2017 History of Any Multi-Drug Resistant Organisms: None Reported Past Surgical History: Bladder Surgery, Cholecystectomy, Heart Catheterization With Stent, Hysterectomy, Orthopedic Surgery Additional Past Surgical History / Comment(s): 11/28/17 lap albert, PCI with stent 2010, cardiac cath 07/2017-treat medically, common iliac artery stent 2005, exploratory lap, liver bx, R foot surgery d/t infection, R shoulder arthroscopic surgery, CAN, EGD, colonoscopy years ago, R leg varicose vein surgery, bladder suspension, eric cataract sx Past Anesthesia/Blood Transfusion Reactions: No Reported Reaction Date of Last Stent Placement:: 2010 Smoking Status: Current every day smoker - Past Family History Brother(s) Family Medical History: Coronary Artery Disease (CAD), Myocardial Infarction (LA) Father Additional Family Medical History / Comment(s): FROM CIRRHOSIS OF THE LIVER Mother Family Medical History: COPD Additional Family Medical History / Comment(s): FROM AAA, HAD HX of TB. Medications and Allergies Home Medications Medication Instructions Recorded Confirmed Type Atenolol [Tenormin] 12.5 mg PO HS 12/27/13 02/28/19 History Sucralfate [Carafate] 1 gm PO AC-TID 12/27/13 02/28/19 History Pramipexole [Mirapex] 0.125 mg PO HS 09/12/14 02/28/19 History Tiotropium 18 Mcg/Puff [Spiriva] 1 cap INHALATION RT-BID 09/12/14 02/28/19 History DULoxetine HCL [Cymbalta] 60 mg PO BID 07/18/17 02/28/19 History Aspirin 81 mg PO DAILY chew 09/02/17 02/28/19 Rx Pravastatin Sodium [Pravachol] 80 mg PO HS #0 tab 09/02/17 02/28/19 Rx Dexlansoprazole [Dexilant] 60 mg PO DAILY 12/12/17 02/28/19 History Nitroglycerin Sl Tabs [Nitrostat] 0.4 mg SUBLINGUAL Q5M PRN 12/12/17 02/28/19 History guaiFENesin [Mucinex] 1,200 mg PO Q12H 12/12/17 02/28/19 History Albuterol Inhaler [Ventolin Hfa 1 - 2 puff INHALATION RT-Q6H PRN 10/08/18 02/28/19 History Inhaler] Butalb/APAP/Caff 50-325-40Mg 1 - 2 tab PO Q8H PRN 10/08/18 02/28/19 History [Fioricet 50-325-40] Calcium Carbonate/Vitamin D3 1 tab PO BID 10/08/18 02/28/19 History [Calcium 600-Vit D3 400 Caplet] Ipratropium-Albuterol Nebulize 3 ml INHALATION RT-QID 10/08/18 02/28/19 History [Duoneb 0.5 mg-3 mg/3 ml Soln] Topiramate [Topamax] 50 mg PO BID 10/08/18 02/28/19 History cycloSPORINE [Restasis] 1 drop BOTH EYES BID 10/08/18 02/28/19 History ALPRAZolam [Xanax] 0.5 mg PO TID PRN 02/14/19 02/28/19 History SILVER sulfADIAZINE CREAM 1 applic TOPICAL DAILY 02/14/19 02/28/19 History [Silvadene Cream] Levothyroxine Sodium [Synthroid] 25 mcg PO DAILY 02/28/19 02/28/19 History Multivitamins, Thera [Multivitamin 1 tab PO DAILY 02/28/19 02/28/19 History (formulary)] Nebivolol [Bystolic] 5 mg PO BID 02/28/19 02/28/19 History Allergies Allergy/AdvReac Type Severity Reaction Status Date / Time naproxen sodium [From Aleve] Allergy Severe Anaphylaxis Verified 02/28/19 11:44 adhesive Allergy Rash/Hives Verified 02/28/19 11:44 cinnamon [Cinnamon] Allergy Dyspnea Verified 02/28/19 11:44 clindamycin Allergy Anaphylaxis Verified 02/28/19 11:44 codeine Allergy Nausea & Verified 02/28/19 11:44 Vomiting gentamicin [Gentamicin] Allergy SWELLING Verified 02/28/19 11:44 OF FACE W/ EYE DROPS paola Allergy Dyspnea Verified 02/28/19 11:44 Iodinated Contrast- Oral and Allergy Dyspnea Verified 02/28/19 11:44 IV Dye latex Allergy Rash/Hives Verified 02/28/19 11:44 levothyroxine sodium Allergy Unknown Verified 02/28/19 11:44 [From Synthroid] losartan Allergy Unknown Verified 02/28/19 11:44 montelukast sodium Allergy Wheezing Verified 02/28/19 11:44 [From Singulair] pantoprazole sodium Allergy Abdominal Verified 02/28/19 11:44 [From Protonix] Pain Penicillins Allergy Rash/Hives Verified 02/28/19 11:44 red dye Allergy Abdominal Verified 02/28/19 11:44 Pain Sulfa (Sulfonamide Allergy Swelling Verified 02/28/19 11:44 Antibiotics) IN MOUTH sulfamethoxazole Allergy swelling Verified 02/28/19 11:44 [From Bactrim] tongue sulfanilamide Allergy Unknown Verified 02/28/19 11:44 trimethoprim [From Bactrim] Allergy Swelling Verified 02/28/19 11:44 venom-honey bee Allergy Dyspnea Verified 02/28/19 11:44 [bee venom (honey bee)] BANDAIDS Allergy Rash/Hives Uncoded 02/28/19 11:30 Dye for gallbladder scan. Allergy Anaphylaxis Uncoded 02/28/19 11:30 tomatoes AdvReac Abdominal Uncoded 02/28/19 11:30 Pain Physical Exam Vitals: Vital Signs Temp Pulse Pulse Resp BP BP Pulse Ox 03/01/19 08:12 98 03/01/19 08:00 66 03/01/19 03:57 70 17 03/01/19 03:56 98.2 F 70 17 135/63 97 02/28/19 23:27 72 17 02/28/19 23:24 98.2 F 72 17 127/65 100 02/28/19 20:00 75 17 02/28/19 19:52 98.4 F 75 17 155/70 100 02/28/19 18:39 98.2 F 78 18 166/84 100 02/28/19 17:30 97.5 F L 74 18 163/73 99 02/28/19 16:01 82 18 167/81 99 02/28/19 14:26 68 02/28/19 14:21 70 22 137/78 98 02/28/19 14:01 64 02/28/19 13:24 67 18 137/78 99 02/28/19 12:07 66 18 122/49 99 02/28/19 12:00 22 02/28/19 11:25 97.4 F L 121 H 18 105/62 100 Intake and Output 02/28/19 03/01/19 03/01/19 22:59 06:59 14:59 Intake Total 300 Output Total 650 Balance 300 -650 Intake: Oral 300 Output: Urine 650 Other: Voiding Method Toilet Weight 37 kg PHYSICAL EXAMINATION: 68-year-old, thin, frail 68-year-old female HEENT: Head is atraumatic, normocephalic. Pupils equal, round. Neck is supple. There is no elevated jugular venous pressure. HEART EXAMINATION: Heart S1, S2 normal. No murmur or gallop heard. CHEST EXAMINATION: Lungs are clear to auscultation and precussion. No chest wall tenderness is noted on palpation or with deep breathing. ABDOMEN: Soft, nontender. Bowel sounds are heard. No organomegaly noted. EXTREMITIES: 2+ peripheral pulses with no evidence of peripheral edema and no calf tenderness noted. NEUROLOGIC patient is awake, alert and oriented -3. Results 03/01/19 06:48 03/01/19 06:48 Cardiac Enzymes 02/28/19 02/28/19 02/28/19 Range/Units 11:30 11:30 17:41 AST 26 (14-36) U/L Troponin I 0.014 0.044 H* (0.000-0.034) ng/mL 03/01/19 Range/Units 06:48 AST (14-36) U/L Troponin I 0.026 (0.000-0.034) ng/mL Coagulation 02/28/19 Range/Units 11:30 PT 10.3 (9.0-12.0) sec APTT 21.7 L (22.0-30.0) sec CBC 02/28/19 03/01/19 Range/Units 11:30 06:48 WBC 8.9 9.5 (3.8-10.6) k/uL RBC 3.58 L 3.10 L (3.80-5.40) m/uL Hgb 10.8 L 9.5 L (11.4-16.0) gm/dL Hct 34.7 29.6 L (34.0-46.0) % Plt Count 253 D 231 (150-450) k/uL Comprehensive Metabolic Panel 02/28/19 03/01/19 Range/Units 11:30 06:48 Sodium 139 140 (137-145) mmol/L Potassium 4.6 4.4 (3.5-5.1) mmol/L Chloride 109 H 109 H (98-107) mmol/L Carbon Dioxide 19 L 22 (22-30) mmol/L BUN 19 H 22 H (7-17) mg/dL Creatinine 1.21 H 0.97 (0.52-1.04) mg/dL Glucose 154 H 76 (74-99) mg/dL Calcium 8.9 9.1 (8.4-10.2) mg/dL AST 26 (14-36) U/L ALT 13 (9-52) U/L Alkaline Phosphatase 131 H (38-126) U/L Total Protein 6.1 L (6.3-8.2) g/dL Albumin 3.4 L (3.5-5.0) g/dL Current Medications Generic Name Dose Route Start Last Admin Trade Name Freq PRN Reason Stop Dose Admin Acetaminophen/Butalbital/Caffeine 1 each 02/28/19 20:53 Fioricet 50-325-40 PO Q8H PRN Migraine Headache Albuterol Sulfate 2.5 mg 02/28/19 20:53 Ventolin Nebulized INHALATION RT-Q6H PRN Shortness Of Breath Albuterol/Ipratropium 3 ml 03/01/19 08:00 03/01/19 08:00 Duoneb 0.5 Mg-3 Mg/3 Ml Soln INHALATION 3 ml RT-QID CRISTA Administration Alprazolam 0.5 mg 02/28/19 20:53 Xanax PO TID PRN Anxiety Aspirin 81 mg 03/01/19 09:00 03/01/19 09:49 Aspirin PO 81 mg DAILY CRISTA Administration Calcium Carbonate 1 each 02/28/19 21:00 03/01/19 09:49 Oscal 500+D PO 1 each BID CRISTA Administration Cyclosporine 1 drops 02/28/19 21:00 03/01/19 09:50 Restasis 0.05% Ophth Soln BOTH EYES 1 drops BID CRISTA Administration Dicyclomine HCl 20 mg 03/01/19 09:48 03/01/19 09:56 Bentyl PO 20 mg QID PRN Administration Dyspepsia Duloxetine HCl 60 mg 02/28/19 21:00 03/01/19 09:49 Cymbalta PO 60 mg BID CRISTA Administration Guaifenesin 1,200 mg 02/28/19 21:00 03/01/19 09:49 Mucinex PO 1,200 mg Q12H CRISTA Administration Levothyroxine Sodium 25 mcg 03/01/19 06:30 03/01/19 06:04 Synthroid PO Not Given DAILY@0630 [facility] Multivitamins 1 each 02/28/19 21:00 03/01/19 09:49 Theragran PO 1 each DAILY CRISTA Administration Naloxone HCl 0.2 mg 02/28/19 14:00 Narcan IV Q2M PRN Opioid Reversal Nebivolol 5 mg 02/28/19 21:00 03/01/19 09:50 Bystolic PO 5 mg BID CRISTA Administration Nitroglycerin 0.4 mg 02/28/19 20:53 Nitrostat SUBLINGUAL Q5M PRN Chest Pain Dexlansoprazole [ 60 mg 03/01/19 09:00 03/01/19 09:50 Dexilant] 60 Mg PO Not Given DAILY [facility] Pramipexole Dihydrochloride 0.125 mg 02/28/19 21:00 02/28/19 22:25 Mirapex PO 0.125 mg HS CRISTA Administration Pravastatin Sodium 80 mg 02/28/19 21:00 02/28/19 21:39 Pravachol PO 80 mg HS CRISTA Administration Silver Sulfadiazine 1 applic 03/01/19 09:00 03/01/19 09:50 Silvadene Cream TOPICAL Not Given DAILY [facility] Sucralfate 1 gm 03/01/19 07:30 03/01/19 06:46 Carafate PO 1 gm AC-TID CRISTA Administration Topiramate 50 mg 02/28/19 21:00 03/01/19 09:49 Topamax PO 50 mg BID CRISTA Administration Intake and Output 02/28/19 03/01/19 03/01/19 22:59 06:59 14:59 Intake Total 300 Output Total 650 Balance 300 -650 Intake: Oral 300 Output: Urine 650 Other: Voiding Method Toilet Weight 37 kg 03/01/19 06:48 03/01/19 06:48 EKG Interpretations (text) EKG shows normal sinus rhythm with ST-T wave changes noted in the anterior leads with some ST depression in the lateral leads Assessment and Plan Plan: Assessment and plan #1 syncope, rule out cardiac causes, VQ scan low probability for PE #2 abnormality in troponin, not consistent with acute coronary syndrome, likely secondary to supply and demand mismatch #3 known history of coronary artery disease with prior RCA stent, patient underwent a cardiac catheterization in July 2017 which revealed heavily calcified right and left coronary systems with patent stent to the RCA, mild disease in the circumflex proximal and mid LAD, medical therapy was advised at that time. #4 hypertension, uncontrolled #5 hyperlipidemia #6 prior DVT #7 history of abdominal aortic aneurysm with stent graft #8 anemia , with recent GI workup at [facility] #9 GERD #10 COPD #11 nicotine dependence #12 diastolic congestive heart failure acute on chronic, patient had an echo performed in November 2017 which revealed a normal left ventricular systolic function. #13 paroxysmal atrial fibrillation not on anticoagulation Plan We'll repeat an echocardiogram with Doppler study. We will also check orthostatic heart rate and blood pressure every shift monitor for any significant tachycardia or bradycardia arrhythmias. We'll also attempt to obtain records from [facility] in the patient's most recent admission there and workup there. If patient does have evidence of paroxysmal atrial fibrillation, she will need anticoagulation in the form of Eliquis. Further recommendations to follow. DNP note has been reviewed, I agree with a documented findings and plan of care. Patient was seen and examined. <Juan Manuel Mullen - Last Filed: 03/01/19 14:13> History of Present Illness History of present illness: Symptoms of syncope on the commode consistent with situational syncope. Patient had not eaten anything prior to that she just cannot a bed We do not see any atrial fibrillation on admission Suggest continue monitoring on telemetry to look for any bradycardia episodes Likely situational syncope/vasovagal episode Adequate oral hydration and normal salt intake Physical Exam Vitals: Vital Signs Temp Pulse Pulse Resp BP BP Pulse Ox 03/01/19 08:12 98 03/01/19 08:00 98.9 F 66 75 20 100 03/01/19 03:57 70 17 03/01/19 03:56 98.2 F 70 17 135/63 97 02/28/19 23:27 72 17 02/28/19 23:24 98.2 F 72 17 127/65 100 02/28/19 20:00 75 17 02/28/19 19:52 98.4 F 75 17 155/70 100 02/28/19 18:39 98.2 F 78 18 166/84 100 02/28/19 17:30 97.5 F L 74 18 163/73 99 02/28/19 16:01 82 18 167/81 99 02/28/19 14:26 68 02/28/19 14:21 70 22 137/78 98 Intake and Output 02/28/19 03/01/19 03/01/19 22:59 06:59 14:59 Intake Total 300 240 Output Total 650 400 Balance 300 -650 -160 Intake: Oral 300 240 Output: Urine 650 400 Other: Voiding Method Toilet # Bowel Movements 0 Weight 37 kg 37 kg Results 03/01/19 06:48 03/01/19 06:48 Cardiac Enzymes 02/28/19 03/01/19 Range/Units 17:41 06:48 Troponin I 0.044 H* 0.026 (0.000-0.034) ng/mL Coagulation 02/28/19 Range/Units 11:30 PT 10.3 (9.0-12.0) sec APTT 21.7 L (22.0-30.0) sec CBC 03/01/19 Range/Units 06:48 WBC 9.5 (3.8-10.6) k/uL RBC 3.10 L (3.80-5.40) m/uL Hgb 9.5 L (11.4-16.0) gm/dL Hct 29.6 L (34.0-46.0) % Plt Count 231 (150-450) k/uL Comprehensive Metabolic Panel 03/01/19 Range/Units 06:48 Sodium 140 (137-145) mmol/L Potassium 4.4 (3.5-5.1) mmol/L Chloride 109 H (98-107) mmol/L Carbon Dioxide 22 (22-30) mmol/L BUN 22 H (7-17) mg/dL Creatinine 0.97 (0.52-1.04) mg/dL Glucose 76 (74-99) mg/dL Calcium 9.1 (8.4-10.2) mg/dL Current Medications Generic Name Dose Route Start Last Admin Trade Name Freq PRN Reason Stop Dose Admin Acetaminophen/Butalbital/Caffeine 1 each 02/28/19 20:53 Fioricet 50-325-40 PO Q8H PRN Migraine Headache Albuterol Sulfate 2.5 mg 02/28/19 20:53 Ventolin Nebulized INHALATION RT-Q6H PRN Shortness Of Breath Albuterol/Ipratropium 3 ml 03/01/19 08:00 03/01/19 12:03 Duoneb 0.5 Mg-3 Mg/3 Ml Soln INHALATION Not Given RT-QID CRISTA Alprazolam 0.5 mg 02/28/19 20:53 Xanax PO TID PRN Anxiety Aspirin 81 mg 03/01/19 09:00 03/01/19 09:49 Aspirin PO 81 mg DAILY CRISTA Administration Calcium Carbonate 1 each 02/28/19 21:00 03/01/19 09:49 Oscal 500+D PO 1 each BID CRISTA Administration Cyclosporine 1 drops 02/28/19 21:00 03/01/19 09:50 Restasis 0.05% Ophth Soln BOTH EYES 1 drops BID CRISTA Administration Dicyclomine HCl 20 mg 03/01/19 09:48 03/01/19 09:56 Bentyl PO 20 mg QID PRN Administration Dyspepsia Duloxetine HCl 60 mg 02/28/19 21:00 03/01/19 09:49 Cymbalta PO 60 mg BID CRISTA Administration Famotidine 20 mg 03/02/19 09:00 Pepcid PO DAILY [facility], [facility] Guaifenesin 1,200 mg 02/28/19 21:00 03/01/19 09:49 Mucinex PO 1,200 mg Q12H CRISTA Administration Levothyroxine Sodium 25 mcg 03/01/19 06:30 03/01/19 06:04 Synthroid PO Not Given DAILY@0630 [facility], [facility] Multivitamins 1 each 02/28/19 21:00 03/01/19 09:49 Theragran PO 1 each DAILY [facility] Administration Naloxone HCl 0.2 mg 02/28/19 14:00 Narcan IV Q2M PRN Opioid Reversal Nebivolol 5 mg 02/28/19 21:00 03/01/19 09:50 Bystolic PO 5 mg BID [facility] Administration Nitroglycerin 0.4 mg 02/28/19 20:53 Nitrostat SUBLINGUAL Q5M PRN Chest Pain Dexlansoprazole [ 60 mg 03/01/19 09:00 03/01/19 09:50 Dexilant] 60 Mg PO Not Given DAILY [facility] Pramipexole Dihydrochloride 0.125 mg 02/28/19 21:00 02/28/19 22:25 Mirapex PO 0.125 mg HS [facility] Administration Pravastatin Sodium 80 mg 02/28/19 21:00 02/28/19 21:39 Pravachol PO 80 mg HS [facility] Administration Silver Sulfadiazine 1 applic 03/01/19 09:00 03/01/19 09:50 Silvadene Cream TOPICAL Not Given DAILY [facility] Sucralfate 1 gm 03/01/19 07:30 03/01/19 12:32 Carafate PO 1 gm AC-TID [facility] Administration Topiramate 50 mg 02/28/19 21:00 03/01/19 09:49 Topamax PO 50 mg BID [facility] Administration Intake and Output 02/28/19 03/01/19 03/01/19 22:59 06:59 14:59 Intake Total 300 240 Output Total 650 400 Balance 300 -650 -160 Intake: Oral 300 240 Output: Urine 650 400 Other: Voiding Method Toilet # Bowel Movements 0 Weight 37 kg 37 kg Patient Weight 03/02/19 06:59 Weight 37 kg 03/01/19 06:48 03/01/19 06:48
[2019-03-01 11:36] VITALS: BMI 14.4
--- NOTE | 2019-03-01 13:39 | P.HPIM ---
History of Present Illness H&P Date: 03/01/19 This is a 68-year-old female one of Dr. Colbert patient with past medical history of hepatitis C post the Harvoni therapy, history of CAD with non-ST elevated myocardial infarction in April 2017 status post heart catheterization and stenting of the RCA with heavily calcified right and left coronary systems and recommendations to maximize medical treatment, COPD, asthma, chronic hypoxic respiratory failure on home O2 at 3 L nasal cannula, previous history of DVT along with Takosubu syndrome, GI bleed (April 2016). 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 Islas at that time. History of carotid stenosis and aortic aneurysm followed by Dr. Costa. Patient had recent hospitalization for small bowel obstruction was transferred [facility] due to her underlying abdominal aortic aneurysm. Patient states that she was treated with conservative management. While hospitalized she did have about of atrial fibrillation but was not started on anticoagulation. Patient now presents to the clinic [facility] emergency center due to syncopal episode. The patient was having a bowel movement and maintenance draining became weak and was unable to flush the toilet. She was standing to wash her hands and continued to have weakness and she apparently sat down with loss of consciousness for a few seconds. She was not able to answer any questions according to family. She denied incontinence of urine or stool. Patient was brought into [facility] emergency center by EMS for evaluation. Chest x-ray showed chronic emphysema) she will changes with new tiny left pleural effusion. EKG was in normal sinus rhythm was ST-T wave changes in the anterior leads and mild ST depression in the lateral leads. VQ scan showed low evidence of pulmonary embolism. A d-dimer was 20.8, hemoglobin 9.5 white count 9.5, creatinine 1.2, troponin 0.014, 0.044 and 0.026, BNP 15,000, TSH 14.4. Patient apparently had atrial fibrillation with RVR during EMS transport and subsequently converted. Review of Systems Constitutional: Reports fatigue, Reports poor appetite, Reports weakness, Denies chills, Denies fever Ears, nose, mouth and throat: Reports vertigo, Denies dysphagia, Denies mouth pain, Denies nasal congestion, Denies nasal discharge Cardiovascular: Reports lightheadedness, Reports syncope, Denies edema, Denies leg edema Respiratory: Denies cough, Denies cough with sputum, Denies dyspnea, Denies excessive sputum, Denies hemoptysis Gastrointestinal: Denies abdominal pain, Denies constipation, Denies diarrhea, Denies loss of appetite, Denies nausea, Denies vomiting Genitourinary: Denies dysuria, Denies urge incontinence, Denies urgency, Denies urinary frequency Musculoskeletal: Reports muscle weakness, Denies myalgias Integumentary: Denies pruritus, Denies rash, Denies wounds Neurological: Reports syncope, Denies aphasia, Denies change in mentation, Denies change in speech, Denies numbness, Denies seizures, Denies weakness Psychiatric: Denies anxiety, Denies depression Past Medical History Past Medical History: Atrial Fibrillation, Asthma, Coronary Artery Disease (CAD), Chest Pain / Angina, COPD, Deep Vein Thrombosis (DVT), GERD/Reflux, GI Bleed, Hypertension, Liver Disease, Memory Impairment, Myocardial Infarction ([place]), Pneumonia, Respiratory Disorder, Sleep Apnea/CPAP/BIPAP, Vascular Disorder Additional Past Medical History / Comment(s): on 10/25/18 pt states was having pizza with family and food got stuck, pt had small amount of emesis. She went to bed and woke up to discover that she was incontinent of stool while she slept. Pt states that this has never happened. aLSO STATES THAT IT IS GETTING HARDER TO SWALLOW. HEP C. Aortic aneurysm with stent-being monitored, Takosubu syndrome in 2016, R groin dissection/cardiac cath, recent bacteremia-blood cultures pos itive for veridans strep-completed antibiotics, bronchitis, home O2 at 3L/NC most of the time, LG without device-stable, DVT R leg, lower GI bleed, hepatitis C with Harvoni treatment, anemia with iron infusions x2, bilateral femoral head avascular necrosis, RLS, migraines, insomnia, constipation, overactive bladder, post menopausal bleed. Last Myocardial Infarction Date:: 07/2017 History of Any Multi-Drug Resistant Organisms: None Reported Past Surgical History: Bladder Surgery, Cholecystectomy, Heart Catheterization With Stent, Hysterectomy, Orthopedic Surgery Additional Past Surgical History / Comment(s): 11/28/17 lap albert, PCI with stent 2010, cardiac cath 07/2017-treat medically, common iliac artery stent 2005, exploratory lap, liver bx, R foot surgery d/t infection, R shoulder arthroscopic surgery, CAN, EGD, colonoscopy years ago, R leg varicose vein surgery, bladder suspension, eric cataract sx Past Anesthesia/Blood Transfusion Reactions: No Reported Reaction Date of Last Stent Placement:: 2010 Smoking Status: Current every day smoker - Past Family History Brother(s) Family Medical History: Coronary Artery Disease (CAD), Myocardial Infarction ( [place]) Father Additional Family Medical History / Comment(s): FROM CIRRHOSIS OF THE LIVER Mother Family Medical History: COPD Additional Family Medical History / Comment(s): FROM AAA, HAD HX of TB. Medications and Allergies Home Medications Medication Instructions Recorded Confirmed Type Atenolol [Tenormin] 12.5 mg PO HS 12/27/13 02/28/19 History Sucralfate [Carafate] 1 gm PO AC-TID 12/27/13 02/28/19 History Pramipexole [Mirapex] 0.125 mg PO HS 09/12/14 02/28/19 History Tiotropium 18 Mcg/Puff [Spiriva] 1 cap INHALATION RT-BID 09/12/14 02/28/19 History DULoxetine HCL [Cymbalta] 60 mg PO BID 07/18/17 02/28/19 History Aspirin 81 mg PO DAILY chew 09/02/17 02/28/19 Rx Pravastatin Sodium [Pravachol] 80 mg PO HS #0 tab 09/02/17 02/28/19 Rx Dexlansoprazole [Dexilant] 60 mg PO DAILY 12/12/17 02/28/19 History Nitroglycerin Sl Tabs [Nitrostat] 0.4 mg SUBLINGUAL Q5M PRN 12/12/17 02/28/19 History guaiFENesin [Mucinex] 1,200 mg PO Q12H 12/12/17 02/28/19 History Albuterol Inhaler [Ventolin Hfa 1 - 2 puff INHALATION RT-Q6H PRN 10/08/18 02/28/19 History Inhaler] Butalb/APAP/Caff 50-325-40Mg 1 - 2 tab PO Q8H PRN 10/08/18 02/28/19 History [Fioricet 50-325-40] Calcium Carbonate/Vitamin D3 1 tab PO BID 10/08/18 02/28/19 History [Calcium 600-Vit D3 400 Caplet] Ipratropium-Albuterol Nebulize 3 ml INHALATION RT-QID 10/08/18 02/28/19 History [Duoneb 0.5 mg-3 mg/3 ml Soln] Topiramate [Topamax] 50 mg PO BID 10/08/18 02/28/19 History cycloSPORINE [Restasis] 1 drop BOTH EYES BID 10/08/18 02/28/19 History ALPRAZolam [Xanax] 0.5 mg PO TID PRN 02/14/19 02/28/19 History SILVER sulfADIAZINE CREAM 1 applic TOPICAL DAILY 02/14/19 02/28/19 History [Silvadene Cream] Levothyroxine Sodium [Synthroid] 25 mcg PO DAILY 02/28/19 02/28/19 History Multivitamins, Thera [Multivitamin 1 tab PO DAILY 02/28/19 02/28/19 History (formulary)] Nebivolol [Bystolic] 5 mg PO BID 02/28/19 02/28/19 History Allergies Allergy/AdvReac Type Severity Reaction Status Date / Time naproxen sodium [From Aleve] Allergy Severe Anaphylaxis Verified 02/28/19 11:44 adhesive Allergy Rash/Hives Verified 02/28/19 11:44 cinnamon [Cinnamon] Allergy Dyspnea Verified 02/28/19 11:44 clindamycin Allergy Anaphylaxis Verified 02/28/19 11:44 codeine Allergy Nausea & Verified 02/28/19 11:44 Vomiting gentamicin [Gentamicin] Allergy SWELLING Verified 02/28/19 11:44 OF FACE W/ EYE DROPS paola Allergy Dyspnea Verified 02/28/19 11:44 Iodinated Contrast- Oral and Allergy Dyspnea Verified 02/28/19 11:44 IV Dye latex Allergy Rash/Hives Verified 02/28/19 11:44 levothyroxine sodium Allergy Unknown Verified 02/28/19 11:44 [From Synthroid] losartan Allergy Unknown Verified 02/28/19 11:44 montelukast sodium Allergy Wheezing Verified 02/28/19 11:44 [From Singulair] pantoprazole sodium Allergy Abdominal Verified 02/28/19 11:44 [From Protonix] Pain Penicillins Allergy Rash/Hives Verified 02/28/19 11:44 red dye Allergy Abdominal Verified 02/28/19 11:44 Pain Sulfa (Sulfonamide Allergy Swelling Verified 02/28/19 11:44 Antibiotics) IN MOUTH sulfamethoxazole Allergy swelling Verified 02/28/19 11:44 [From Bactrim] tongue sulfanilamide Allergy Unknown Verified 02/28/19 11:44 trimethoprim [From Bactrim] Allergy Swelling Verified 02/28/19 11:44 venom-honey bee Allergy Dyspnea Verified 02/28/19 11:44 [bee venom (honey bee)] BANDAIDS Allergy Rash/Hives Uncoded 02/28/19 11:30 Dye for gallbladder scan. Allergy Anaphylaxis Uncoded 02/28/19 11:30 tomatoes AdvReac Abdominal Uncoded 02/28/19 11:30 Pain Physical Exam Vitals: Vital Signs Temp Pulse Pulse Resp BP BP Pulse Ox 03/01/19 08:12 98 03/01/19 08:00 98.9 F 66 75 20 100 03/01/19 03:57 70 17 03/01/19 03:56 98.2 F 70 17 135/63 97 02/28/19 23:27 72 17 02/28/19 23:24 98.2 F 72 17 127/65 100 02/28/19 20:00 75 17 02/28/19 19:52 98.4 F 75 17 155/70 100 02/28/19 18:39 98.2 F 78 18 166/84 100 02/28/19 17:30 97.5 F L 74 18 163/73 99 02/28/19 16:01 82 18 167/81 99 02/28/19 14:26 68 02/28/19 14:21 70 22 137/78 98 02/28/19 14:01 64 02/28/19 13:24 67 18 137/78 99 Intake and Output 02/28/19 03/01/19 03/01/19 22:59 06:59 14:59 Intake Total 300 Output Total 650 200 Balance 300 -650 -200 Intake: Oral 300 Output: Urine 650 200 Other: Voiding Method Toilet Weight 37 kg 37 kg Gen: This is a thin cachectic appearing 68-year-old female. She is resting in bed appears to be comfortable and in no acute distress. HEENT: Head is atraumatic, normocephalic. Pupils equal, round. Sclerae is anicteric. NECK: Supple. No JVD. No lymphadenopathy. No thyromegaly. LUNGS: Clear to auscultation. No wheezes or rhonchi. No intercostal r etractions. HEART: Regular rate and rhythm. No murmur. ABDOMEN: Soft. Bowel sounds are present. No masses. No tenderness. EXTREMITIES: No pedal edema. No calf tenderness. Dorsalis pedis +2 bilater ally. NEUROLOGICAL: Patient is awake, alert and oriented x3. Cranial nerves 2 through 12 are grossly intact. Results CBC & Chem 7: 03/01/19 06:48 03/01/19 06:48 Labs: Abnormal Lab Results - Last 24 Hours (Table) 02/28/19 02/28/19 02/28/19 Range/Units 11:30 11:30 11:30 RBC (3.80-5.40) m/uL Hgb (11.4-16.0) gm/dL Hct (34.0-46.0) % APTT 21.7 L (22.0-30.0) sec D-Dimer 20.83 H (<0.60) mg/L FEU Chloride 109 H (98-107) mmol/L Carbon Dioxide 19 L (22-30) mmol/L BUN 19 H (7-17) mg/dL Creatinine 1.21 H (0.52-1.04) mg/dL Glucose 154 H (74-99) mg/dL Alkaline Phosphatase 131 H (38-126) U/L Troponin I (0.000-0.034) ng/mL Total Protein 6.1 L (6.3-8.2) g/dL Albumin 3.4 L (3.5-5.0) g/dL TSH 14.400 H (0.465-4.680) mIU/L Urine Protein (Negative) Urine Ketones (Negative) Urine Bacteria (None) /hpf Hyaline Casts (0-2) /lpf Urine Mucus (None) /hpf 02/28/19 02/28/19 03/01/19 Range/Units 17:41 21:50 06:48 RBC 3.10 L (3.80-5.40) m/uL Hgb 9.5 L (11.4-16.0) gm/dL Hct 29.6 L (34.0-46.0) % APTT (22.0-30.0) sec D-Dimer (<0.60) mg/L FEU Chloride (98-107) mmol/L Carbon Dioxide (22-30) mmol/L BUN (7-17) mg/dL Creatinine (0.52-1.04) mg/dL Glucose (74-99) mg/dL Alkaline Phosphatase (38-126) U/L Troponin I 0.044 H* (0.000-0.034) ng/mL Total Protein (6.3-8.2) g/dL Albumin (3.5-5.0) g/dL TSH (0.465-4.680) mIU/L Urine Protein 1+ H (Negative) Urine Ketones Trace H (Negative) Urine Bacteria Rare H (None) /hpf Hyaline Casts 10 H (0-2) /lpf Urine Mucus Occasional H (None) /hpf 03/01/19 Range/Units 06:48 RBC (3.80-5.40) m/uL Hgb (11.4-16.0) gm/dL Hct (34.0-46.0) % APTT (22.0-30.0) sec D-Dimer (<0.60) mg/L FEU Chloride 109 H (98-107) mmol/L Carbon Dioxide (22-30) mmol/L BUN 22 H (7-17) mg/dL Creatinine (0.52-1.04) mg/dL Glucose (74-99) mg/dL Alkaline Phosphatase (38-126) U/L Troponin I (0.000-0.034) ng/mL Total Protein (6.3-8.2) g/dL Albumin (3.5-5.0) g/dL TSH (0.465-4.680) mIU/L Urine Protein (Negative) Urine Ketones (Negative) Urine Bacteria (None) /hpf Hyaline Casts (0-2) /lpf Urine Mucus (None) /hpf Thrombosis Risk Factor Assmnt - DVT/VTE Prophylaxis DVT/VTE Prophylaxis: Mechanical Prophylaxis ordered - Choose All That Apply Each Factor Represents 1 point: Abnormal pulmonary function (COPD) Each Risk Factor Represents 2 Points: Age 61-74 years Each Risk Factor Represents 3 Points: History of DVT/PE Thrombosis Risk Factor Assessment Total Risk Factor Score: 6 Thrombosis Risk Factor Assessment Level: High Risk Assessment and Plan Plan: 1. Syncopal episode, rule out arrhythmia. 2. Abnormal troponin, acute coronary syndrome ruled out by cardiology. Cardiology consult appreciated. 3. Recent admission for small bowel obstruction, conservative management, r esolved. 4. Patient reported episodes of atrial fibrillation while at [facility]. EMS reported atrial fibrillation with RVR. Patient is currently in sinus rhythm. Continue Bystolic 5 mg twice daily. Patient may require anticoagulation. Continue cardiac monitoring. 5. Hypertension, hypertensive cardiovascular disease. Continue Bysystolic. 6. Peripheral vascular disease with history of left common iliac artery stent graft with focal aneurysm 3.2 cm severe stenosis beyond aneurysm, right common iliac artery 2.6 cm with modest focal stenosis just beyond. Abdominal aortic aneurysm status post endovascular stent, known history of Carotid stenosis. Monitored by Dr. Costa. 7. Bilateral avascular necrosis bilateral femoral seen by Dr. Whipple orthopedic surgeon no intervention needed 8. History of Viridans strep bacteremia secondary to endovascular infection, endocarditis ruled out September 04 4 weeks IV vancomycin completed. 9. Chronic back pain. 10. Chronic anemia of chronic disease. Hemoglobin stable 11. PUD. 12. Hep C S/P Harvoni therapy. 13. Hyperlipidemia. Continue Pravastatin. 14. Chronic tobacco use and dependence. Smoking cessation and counseling an increased risk of CAD, CVA, and malignancy. 15. Migraine Headache. Patient normally on Topamax 50 mg orally twice every day as well as Fioricet half a pill every 4 hours as needed. 16. Restless leg syndrome. Continue Mirapex 0.125 mg orally at bedtime. 17. Obstructive sleep apnea. Stable. 18. Generalized anxiety disorder with panic disorder Depression, recurrent. Cymbalta 60 mg twice daily and Xanax 0.5 milligrams 3 times daily as needed. DVT prophylaxis. With SCDs and MILANA hose GI prophylaxis. Pepcid. Estimated length of stay is 3 midnights. Discharge plan: To be determined Impression and plan of care have been directed as dictated by the signing physician. Coby Joaquin nurse practitioner acting as scribe for signing physician.
[2019-03-01] MEDS: SYNTHROID 25 MCG PO SCH (17:04)
[2019-03-01] MEDS: PRAMIPEXOLE 0.125 MG TAB PO SCH (20:11)
[2019-03-01] MEDS: PRAVASTATIN SODIUM 80 MG TAB PO SCH (20:14)
[2019-03-02] MEDS: SUCRALFATE 1 GM TAB PO SCH ×3 (06:20→19:22)
[2019-03-02] MEDS: SYNTHROID 25 MCG PO SCH (06:20)
[2019-03-02 06:47] LABS: Basophils % (A) 0 %; Eosinophils # (A) 0.1 k/uL (0-0.7); Eosinophils % (A) 2 %; HCT 29.7 % (34.0-46.0); HGB 9.2 gm/dL (11.4-16.0); Hypochromasia Slight; Lymphocytes # (A) 2.2 k/uL (1.0-4.8); Lymphocytes % (A) 28 %; MCH 29.9 pg (25.0-35.0); MCHC 30.9 g/dL (31.0-37.0); MCV 96.9 fL (80.0-100.0); Mean Platelet Volume 7.5; Monocytes # (A) 0.2 k/uL (0-1.0); Monocytes % (A) 3 %; Neutrophils % (A) 65 %; Platelet Count 216 k/uL (150-450); RBC 3.07 m/uL (3.80-5.40); RDW 14.3 % (11.5-15.5); WBC 7.7 k/uL (3.8-10.6)
[2019-03-02 07:01] LABS: Calcium 9.1 mg/dL (8.4-10.2); Potassium 4.5 mmol/L (3.5-5.1)
[2019-03-02] MEDS: IPRATROPIUM-ALBUTEROL 3 ML NEB INHALATION SCH ×4 (07:32→20:19)
[2019-03-02] MEDS: TOPIRAMATE 25 MG TAB PO SCH ×2 (10:42→21:01)
[2019-03-02] MEDS: DULoxetine HCL 60 MG CAPSULE.DR PO SCH ×2 (10:43→21:02)
[2019-03-02] MEDS: guaiFENesin 600 MG TABLET.ER PO SCH ×2 (10:43→21:02)
[2019-03-02] MEDS: MULTIVITAMINS, THERA 1 EACH TAB PO SCH (10:44)
[2019-03-02] MEDS: ASPIRIN 81 MG PO SCH (10:44)
[2019-03-02] MEDS: CALCIUM CARB-VIT D 500MG-200UN 1 EACH TAB PO SCH ×2 (10:44→21:01)
[2019-03-02] MEDS: FAMOTIDINE 20 MG TAB PO SCH (10:44)
[2019-03-02] MEDS: Dexlansoprazole [Dexilant] 60 MG PO SCH (10:45)
[2019-03-02] MEDS: cycloSPORINE 0.05% OPHTH 0.4 ML DROPERETTE BOTH EYES SCH ×2 (10:46→21:01)
[2019-03-02] MEDS: NEBIVOLOL 5 MG TAB PO SCH ×2 (10:47→21:02)
--- NOTE | 2019-03-02 11:24 | ECHOF ---
Referral Reason:syncope MEASUREMENTS -------- HEIGHT: 160.0 cm WEIGHT: 36.7 kg BP: 135/63 RVIDd: 2.7 cm (< 3.3) IVSd: 1.3 cm (0.6 - 1.1) LVIDd: 4.2 cm (3.9 - 5.3) LVPWd: 1.1 cm (0.6 - 1.1) IVSs: 1.5 cm LVIDs: 2.8 cm LVPWs: 1.6 cm LA Diam: 4.2 cm (2.7 - 3.8) LAESV Index (A-L): 36.90 ml/m Ao Diam: 3.4 cm (2.0 - 3.7) AV Cusp: 2.4 cm (1.5 - 2.6) MV EXCURSION: 18.894 mm (> 18.000) MV EF SLOPE: 83 mm/s (70 - 150) EPSS: 0.3 cm MV E Sabino: 0.66 m/s MV DecT: 373 ms MV A Sabino: 0.41 m/s MV E/A Ratio: 1.63 RAP: 5.00 mmHg RVSP: 45.38 mmHg FINDINGS -------- Sinus rhythm. This was a technically good study. The left ventricular size is normal. There is mild concentric left ventricular hypertrophy. Overa ll left ventricular systolic function is normal with, an EF between 55 - 60 %. Grate II diastolic d ysfunction The right ventricle is normal in size. LA is moderately dilated 34-39 ml/m2 The right atrium is normal in size. Interatrial and interventricular septum intact. There is mild aortic valve sclerosis. The mitral valve is normal. Mild mitral regurgitation is present. Moderate tricuspid regurgitation present. There is mild pulmonary hypertension. The right ventric ular systolic pressure, as measured by Doppler, is 45.38mmHg. Trace/mild (physiologic) pulmonic regurgitation. The aortic root size is normal. Normal inferior vena cava with normal inspiratory collapse consistent with estimated right atrial pre ssure of 5 mmHg. There is no pericardial effusion. CONCLUSIONS -------- 1. Sinus rhythm. 2. This was a technically good study. 3. The left ventricular size is normal. 4. There is mild concentric left ventricular hypertrophy. 5. Grate II diastolic dysfunction 6. The right ventricle is normal in size. 7. LA is moderately dilated 34-39 ml/m2 8. The right atrium is normal in size. 9. Interatrial and interventricular septum intact. 10. There is mild aortic valve sclerosis. 11. The mitral valve is normal. 12. Mild mitral regurgitation is present. 13. Moderate tricuspid regurgitation present. 14. There is mild pulmonary hypertension. 15. The right ventricular systolic pressure, as measured by Doppler, is 45.38mmHg. 16. Trace/mild (physiologic) pulmonic regurgitation. 17. The aortic root size is normal. 18. Normal inferior vena cava with normal inspiratory collapse consistent with estimated right atrial pressure of 5 mmHg. 19. There is no pericardial effusion. HYPERION ADMINISTRATOR: Esther Riggins RDCS
--- NOTE | 2019-03-02 14:56 | P.PN ---
Subjective Progress Note Date: 03/02/19 This is a pleasant 68-year-old female who follows regularly with Dr. VC Garcia in the office. She had past medical history significant for hypertension, hyperlipidemia, DVT, GERD, COPD, coronary artery disease, patient underwent a cardiac catheterization in July 2017 which revealed a mid RCA stent which was patent, circumflex 30% diseased, proximal LAD 30-40% and 30% in the midportion. History of aortic aneurysm with stent graft in 2005, history also of anemia. Patient was in the hospital most recently in November 2017 with symptoms of difficulty in swallowing with associated vomiting and diarrhea. She was subsequently transferred to [facility] because of suspicion of issues with her abdominal aortic aneurysm. According to the patient on arrival there and after testing it was found that her aneurysm was stable. Patient did undergo upper GI and full GI workup also at [facility] which the she reported to be normal. Patient states she had episodes of atrial fibrillation while she was there, she was on IV heparin but not started on oral anticoagulation, this is all verbal per the patient. Patient presents to the hospital on this admission following a syncopal episode. According to the patient, she was having a bowel movement, and may have been straining, she states that she became so weak she cannot even flush the toilet. She was standing up washing her hands, and continues to feel progressively more and more weak, she opened the door and called for her grandson who brought her into the computer room to sit her on a chair, as he was attempting to do that she apparently lost consciousness for a few seconds, she was quite clammy. EMS was then called and the patient was brought to the hospital for further evaluation and treatment. Chest x-ray on admission here showed chronic emphysema and parenchymal changes with new tiny left pleural effusion noted. EKG on arrival here showed a normal sinus rhythm with ST-T wave changes noted in the anterior leads and mild ST depression in the lateral leads. Lung perfusion scan showed low evidence for pulmonary embolism. Blood pressure 134/60 with a heart rate in the 70s. White blood cell count 9.5, hemoglobin 9.5, platelet count 231. D-dimer 20.8, pH on admission 7.2 pCO2 45 HCO3 18, sodium 140, potassium 4.4, BUN 22 and creatinine 0.9. Creatinine on admission was 1.2. Troponins 0.014, 0.044, 0.026. BNP level 15,000, TSH level 14.4. The time of my examination this morning the patient is resting comfortably in bed, no complaints at present. 03/02/2019 Patient was seen and examined this morning, overall she's feeling significantly better. There were no tachycardia or bradycardia arrhythmias noted on the monitor and hemodynamically she has been stable. We did review all the records from [facility], patient did have episodes of paroxysmal atrial fibri llation. For this reason she will be initiated on anticoagulation in the form of Eliquis 2-1/2 mg one tablet by mouth twice a day. This was explained to the patient in detail. Objective - Vital Signs Vital signs: Vital Signs Temp 98.9 F 03/02/19 03:53 Pulse 74 03/02/19 12:01 Resp 20 03/02/19 03:55 BP 166/72 03/02/19 03:53 Pulse Ox 98 03/02/19 03:53 Intake & Output 03/01/19 03/02/19 03/02/19 18:59 06:59 18:59 Intake Total 480 500 600 Output Total 400 600 300 Balance 80 -100 300 Weight 37 kg 37.1 kg Intake: Oral 480 500 600 Output: Urine 400 600 300 Other: Voiding Method Bedside Commode # Voids 1 2 # Bowel Movements 0 1 - Exam PHYSICAL EXAMINATION: 68-year-old, thin, frail 68-year-old female HEENT: Head is atraumatic, normocephalic. Pupils equal, round. Neck is supple. There is no elevated jugular venous pressure. HEART EXAMINATION: Heart S1, S2 normal. No murmur or gallop heard. CHEST EXAMINATION: Lungs are clear to auscultation and precussion. No chest wall tenderness is noted on palpation or with deep breathing. ABDOMEN: Soft, nontender. Bowel sounds are heard. No organomegaly noted. EXTREMITIES: 2+ peripheral pulses with no evidence of peripheral edema and no calf tenderness noted. NEUROLOGIC patient is awake, alert and oriented -3. - Labs CBC & Chem 7: 03/02/19 06:29 03/02/19 06:29 Labs: Abnormal Lab Results - Last 24 Hours (Table) 03/02/19 03/02/19 Range/Units 06:29 06:29 RBC 3.07 L (3.80-5.40) m/uL Hgb 9.2 L (11.4-16.0) gm/dL Hct 29.7 L (34.0-46.0) % MCHC 30.9 L (31.0-37.0) g/dL Chloride 109 H (98-107) mmol/L BUN 22 H (7-17) mg/dL Assessment and Plan Plan: Assessment and plan #1 syncope, rule out cardiac causes, VQ scan low probability for PE #2 abnormality in troponin, not consistent with acute coronary syndrome, likely secondary to supply and demand mismatch #3 known history of coronary artery disease with prior RCA stent, patient underwent a cardiac catheterization in July 2017 which revealed heavily calcified right and left coronary systems with patent stent to the RCA, mild disease in the circumflex proximal and mid LAD, medical therapy was advised at that time. #4 hypertension, uncontrolled #5 hyperlipidemia #6 prior DVT #7 history of abdominal aortic aneurysm with stent graft #8 anemia , with recent GI workup at [facility] #9 GERD #10 COPD #11 nicotine dependence #12 diastolic congestive heart failure acute on chronic, patient had an echo performed in November 2017 which revealed a normal left ventricular systolic function. #13 paroxysmal atrial fibrillation not on anticoagulation Plan Echocardiogram with Doppler study revealed a normal left ventricular systolic function. No evidence of tachycardia or bradycardia arrhythmias. Patient will be initiated today on Eliquis 2-1/2 mg one tablet by mouth twice a day. She may be able to be discharged home once cleared by primary, a follow-up appointment in the office post discharge. DNP note has been reviewed, I agree with a documented findings and plan of care. Patient was seen and examined.
--- NOTE | 2019-03-02 15:24 | P.PN ---
Subjective Progress Note Date: 03/02/19 This is a 68-year-old female one of Dr. Colbert patient with past medical history of hepatitis C post the Harvoni therapy, history of CAD with non-ST elevated myocardial infarction in April 2017 status post heart catheterization and stenting of the RCA with heavily calcified right and left coronary systems and recommendations to maximize medical treatment, COPD, asthma, chronic hypoxic respiratory failure on home O2 at 3 L nasal cannula, previous history of DVT along with Takosubu syndrome, GI bleed (April 2016). 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 Islas at that time. History of carotid stenosis and aortic aneurysm followed by Dr. Costa. Patient had recent hospitalization for small bowel obstruction was transferred [facility] due to her underlying abdominal aortic aneurysm. Patient states that she was treated with conservative management. While hospitalized she did have about of atrial fibrillation but was not started on anticoagulation. Patient now presents to the [facility] emergency center due to syncopal episode. The patient was having a bowel movement and maintenance draining became weak and was unable to flush the toilet. She was standing to wash her hands and continued to have weakness and she apparently sat down with loss of consciousness for a few seconds. She was not able to answer any questions according to family. She denied incontinence of urine or stool. Patient was brought into [facility] emergency center by EMS for evaluation. Chest x-ray showed chronic emphysema) she will changes with new tiny left pleural effusion. EKG was in normal sinus rhythm was ST-T wave changes in the anterior leads and mild ST depression in the lateral leads. VQ scan showed low evidence of pulmonary embolism. A d-dimer was 20.8, hemoglobin 9.5 white count 9.5, creatinine 1.2, troponin 0.014, 0.044 and 0.026, BNP 15,000, TSH 14.4. Patient apparently had atrial fibrillation with RVR during EMS transport and subsequently converted. 03/02: Patient denies any new complaints. She is requesting a stool softener. We will add in physical therapy. Cardiology has started eliquis. Patient states she has been out of bed for the first time in the recliner today. Repeat lab work reveals a white count of 7.7, hemoglobin 9.2, BUN 22 and creatinine 0.95, chloride 109. Patient has been afebrile, heart rate 72, blood pressure 160/70, pulse ox 90% on 2 L nasal cannula. drafter commercial is a sinus rhythm. Case management has made arrangements for VNA. Anticipate discharge home to [place]. Review of Systems Constitutional: Reports fatigue, Reports poor appetite, Reports weakness, Denies chills, Denies fever Ears, nose, mouth and throat: Denies vertigo, Denies dysphagia, Denies mouth pain, Denies nasal congestion, Denies nasal discharge Cardiovascular: Denies lightheadedness, denies syncope, Denies edema, Denies leg edema, no palpitations Respiratory: Denies cough, Denies cough with sputum, Denies dyspnea, Denies excessive sputum, Denies hemoptysis Gastrointestinal: Denies abdominal pain, reports constipation, Denies diarrhea, Denies loss of appetite, Denies nausea, Denies vomiting Genitourinary: Denies dysuria, Denies urge incontinence, Denies urgency, Denies urinary frequency Musculoskeletal: Reports muscle weakness, Denies myalgias Integumentary: Denies pruritus, Denies rash, Denies wounds Neurological: Reports syncope, Denies aphasia, Denies change in mentation, Denies change in speech, Denies numbness, Denies seizures, Denies weakness Psychiatric: Denies anxiety, Denies depression Objective - Vital Signs Vital signs: Vital Signs Temp 98.9 F 03/02/19 03:53 Pulse 74 03/02/19 12:01 Resp 20 03/02/19 03:55 BP 166/72 03/02/19 03:53 Pulse Ox 98 03/02/19 03:53 Intake & Output 03/01/19 03/02/19 03/02/19 18:59 06:59 18:59 Intake Total 480 500 600 Output Total 400 600 300 Balance 80 -100 300 Weight 37 kg 37.1 kg Intake: Oral 480 500 600 Output: Urine 400 600 300 Other: Voiding Method Bedside Commode # Voids 1 2 # Bowel Movements 0 1 - Exam Gen: This is a thin cachectic appearing 68-year-old female. She is resting in a recliner to be comfortable and in no acute distress. HEENT: Head is atraumatic, normocephalic. Pupils equal, round. Sclerae is anicteric. NECK: Supple. No JVD. No lymphadenopathy. No thyromegaly. LUNGS: Clear to auscultation. No wheezes or rhonchi. No intercostal retractions. HEART: Regular rate and rhythm. No murmur. ABDOMEN: Soft. Bowel sounds are present. No masses. No tenderness. EXTREMITIES: No pedal edema. No calf tenderness. Dorsalis pedis +2 bilaterally. NEUROLOGICAL: Patient is awake, alert and oriented x3. Cranial nerves 2 through 12 are grossly intact. - Labs CBC & Chem 7: 03/02/19 06:29 03/02/19 06:29 Labs: Abnormal Lab Results - Last 24 Hours (Table) 03/02/19 03/02/19 Range/Units 06:29 06:29 RBC 3.07 L (3.80-5.40) m/uL Hgb 9.2 L (11.4-16.0) gm/dL Hct 29.7 L (34.0-46.0) % MCHC 30.9 L (31.0-37.0) g/dL Chloride 109 H (98-107) mmol/L BUN 22 H (7-17) mg/dL Assessment and Plan Plan: 1. Syncopal episode, rule out arrhythmia. No arrhythmias have been noted. Cardiology consult appreciated. 2. Abnormal troponin, acute coronary syndrome ruled out by cardiology. Cardiology consult appreciated. 3. Recent admission for small bowel obstruction, conservative management, resolved. 4. Patient reported episodes of atrial fibrillation while at [facility]. EMS reported atrial fibrillation with RVR. Patient is currently in sinus rhythm. Continue Bystolic 5 mg twice daily. Patient may require anticoagulation. Continue cardiac monitoring. Patient started on eliquis 2.5 mg twice daily and cleared for discharge from cardiology. 5. Hypertension, hypertensive cardiovascular disease. Continue Bysystolic. 6. Peripheral vascular disease with history of left common iliac artery stent graft with focal aneurysm 3.2 cm severe stenosis beyond aneurysm, right common iliac artery 2.6 cm with modest focal stenosis just beyond. Abdominal aortic aneurysm status post endovascular stent, known history of Carotid stenosis. Monitored by Dr. Costa. 7. Bilateral avascular necrosis bilateral femoral seen by Dr. Whipple orthopedic surgeon no intervention needed 8. History of Viridans strep bacteremia secondary to endovascular infection, endocarditis ruled out September 04 4 weeks IV vancomycin completed. 9. Chronic back pain. 10. Chronic anemia of chronic disease. Hemoglobin stable 11. PUD. 12. Hep C S/P Harvoni therapy. 13. Hyperlipidemia. Continue Pravastatin. 14. Chronic tobacco use and dependence. Smoking cessation and counseling an increased risk of CAD, CVA, and malignancy. 15. Migraine Headache. Patient normally on Topamax 50 mg orally twice every day as well as Fioricet half a pill every 4 hours as needed. 16. Restless leg syndrome. Continue Mirapex 0.125 mg orally at bedtime. 17. Obstructive sleep apnea. Stable. 18. Generalized anxiety disorder with panic disorder Depression, recurrent. Cymbalta 60 mg twice daily and Xanax 0.5 milligrams 3 times daily as needed. DVT prophylaxis. With SCDs and MILANA hose GI prophylaxis. Pepcid. Discharge plan: Home with VNA tomorrow Impression and plan of care have been directed as dictated by the signing physician. Coby Joaquin nurse practitioner acting as scribe for signing physician.
[2019-03-02 16:42] VITALS: TEMP 98
[2019-03-02] MEDS: SENNOSIDES-DOCUSATE SODIUM 1 EACH TAB PO SCH (19:22)
[2019-03-02] MEDS: APIXABAN 2.5 MG TABLET PO SCH ×2 (19:22→21:02)
[2019-03-02] MEDS: PRAMIPEXOLE 0.125 MG TAB PO SCH (21:01)
[2019-03-02] MEDS: PRAVASTATIN SODIUM 80 MG TAB PO SCH (21:01)
[2019-03-03] MEDS: DICYCLOMINE 20 MG TAB PO PRN ×2 (04:21→16:46)
[2019-03-03 04:40] LABS: Glucose,Whole Blood 103 mg/dL (75-99)
[2019-03-03] MEDS: SUCRALFATE 1 GM TAB PO SCH ×2 (06:43→13:25)
[2019-03-03] MEDS: SYNTHROID 25 MCG PO SCH (06:43)
[2019-03-03 07:32] LABS: Basophils % (A) 0 %; Eosinophils # (A) 0.2 k/uL (0-0.7); Eosinophils % (A) 3 %; HCT 29.8 % (34.0-46.0); HGB 9.8 gm/dL (11.4-16.0); Hypochromasia Slight; Lymphocytes # (A) 1.5 k/uL (1.0-4.8); Lymphocytes % (A) 21 %; MCH 31.1 pg (25.0-35.0); MCHC 32.9 g/dL (31.0-37.0); MCV 94.6 fL (80.0-100.0); Mean Platelet Volume 8.1; Monocytes # (A) 0.2 k/uL (0-1.0); Monocytes % (A) 3 %; Neutrophils % (A) 71 %; Platelet Count 208 k/uL (150-450); RBC 3.15 m/uL (3.80-5.40); RDW 14.5 % (11.5-15.5); WBC 7.1 k/uL (3.8-10.6)
[2019-03-03 07:56] LABS: Calcium 9.6 mg/dL (8.4-10.2); Potassium 4.6 mmol/L (3.5-5.1)
[2019-03-03] MEDS: IPRATROPIUM-ALBUTEROL 3 ML NEB INHALATION SCH ×3 (07:56→15:38)
[2019-03-03] MEDS: ASPIRIN 81 MG PO SCH (08:42)
[2019-03-03] MEDS: TOPIRAMATE 25 MG TAB PO SCH (08:42)
[2019-03-03] MEDS: SENNOSIDES-DOCUSATE SODIUM 1 EACH TAB PO SCH (08:42)
[2019-03-03] MEDS: CALCIUM CARB-VIT D 500MG-200UN 1 EACH TAB PO SCH (08:42)
[2019-03-03] MEDS: Dexlansoprazole [Dexilant] 60 MG PO SCH (08:43)
[2019-03-03] MEDS: APIXABAN 2.5 MG TABLET PO SCH (08:43)
[2019-03-03] MEDS: DULoxetine HCL 60 MG CAPSULE.DR PO SCH (08:43)
[2019-03-03] MEDS: MULTIVITAMINS, THERA 1 EACH TAB PO SCH (08:43)
[2019-03-03] MEDS: guaiFENesin 600 MG TABLET.ER PO SCH (08:44)
[2019-03-03] MEDS: cycloSPORINE 0.05% OPHTH 0.4 ML DROPERETTE BOTH EYES SCH (08:44)
[2019-03-03] MEDS: NEBIVOLOL 5 MG TAB PO SCH (08:44)
[2019-03-03] MEDS: FAMOTIDINE 20 MG TAB PO SCH (08:44)
[2019-03-03] MEDS ORDERED: TOVIAZ 8 MG PO SCH (09:00)
[2019-03-03] MEDS ORDERED: amLODIPine 5 MG TAB PO SCH (12:00)
[2019-03-03 13:39] VITALS: RESP 19
--- NOTE | 2019-03-03 15:04 | P.PN ---
Subjective Progress Note Date: 03/03/19 This is a pleasant 68-year-old female who follows regularly with Dr. VC Garcia in the office. She had past medical history significant for hypertension, hyperlipidemia, DVT, GERD, COPD, coronary artery disease, patient underwent a cardiac catheterization in July 2017 which revealed a mid RCA stent which was patent, circumflex 30% diseased, proximal LAD 30-40% and 30% in the midportion. History of aortic aneurysm with stent graft in 2005, history also of anemia. Patient was in the hospital most recently in November 2017 with symptoms of difficulty in swallowing with associated vomiting and diarrhea. She was subsequently transferred to [facility] because of suspicion of issues with her abdominal aortic aneurysm. According to the patient on arrival there and after testing it was found that her aneurysm was stable. Patient did undergo upper GI and full GI workup also at [facility] which the she reported to be normal. Patient states she had episodes of atrial fibrillation while she was there, she was on IV heparin but not started on oral anticoagulation, this is all verbal per the patient. Patient presents to the hospital on this admission following a syncopal episode. According to the patient, she was having a bowel movement, and may have been straining, she states that she became so weak she cannot even flush the toilet. She was standing up washing her hands, and continues to feel progressively more and more weak, she opened the door and called for her grandson who brought her into the computer room to sit her on a chair, as he was attempting to do that she apparently lost consciousness for a few seconds, she was quite clammy. EMS was then called and the patient was brought to the hospital for further evaluation and treatment. Chest x-ray on admission here showed chronic emphysema and parenchymal changes with new tiny left pleural effusion noted. EKG on arrival here showed a normal sinus rhythm with ST-T wave changes noted in the anterior leads and mild ST depression in the lateral leads. Lung perfusion scan showed low evidence for pulmonary embolism. Blood pressure 134/60 with a heart rate in the 70s. White blood cell count 9.5, hemoglobin 9.5, platelet count 231. D-dimer 20.8, pH on admission 7.2 pCO2 45 HCO3 18, sodium 140, potassium 4.4, BUN 22 and creatinine 0.9. Creatinine on admission was 1.2. Troponins 0.014, 0.044, 0.026. BNP level 15,000, TSH level 14.4. The time of my examination this morning the patient is resting comfortably in bed, no complaints at present. 03/02/2019 Patient was seen and examined this morning, overall she's feeling significantly better. There were no tachycardia or bradycardia arrhythmias noted on the monitor and hemodynamically she has been stable. We did review all the records from [facility], patient did have episodes of paroxysmal atrial fibri llation. For this reason she will be initiated on anticoagulation in the form of Eliquis 2-1/2 mg one tablet by mouth twice a day. This was explained to the patient in detail. 03/03/2019 Patient was seen and examined this morning, overall feeling better. Hemodynamically stable. From our perspective she may be able to be discharged home today, we'll make her a follow-up appointment in the office post discharge. Objective - Vital Signs Vital signs: Vital Signs Temp 98.0 F 03/02/19 08:00 Pulse 68 03/03/19 12:00 Resp 19 03/03/19 12:00 BP 168/72 03/03/19 12:00 Pulse Ox 97 03/03/19 12:00 Intake & Output 03/02/19 03/03/19 03/03/19 18:59 06:59 18:59 Intake Total 1280 800 480 Output Total 300 300 Balance 980 500 480 Weight 37.1 kg Intake: Oral 1280 800 480 Output: Urine 300 300 Other: Voiding Method Bedside Commode # Voids 2 3 # Bowel Movements 1 - Exam PHYSICAL EXAMINATION: 68-year-old, thin, frail 68-year-old female HEENT: Head is atraumatic, normocephalic. Pupils equal, round. Neck is supple. There is no elevated jugular venous pressure. HEART EXAMINATION: Heart S1, S2 normal. No murmur or gallop heard. CHEST EXAMINATION: Lungs are clear to auscultation and precussion. No chest wall tenderness is noted on palpation or with deep breathing. ABDOMEN: Soft, nontender. Bowel sounds are heard. No organomegaly noted. EXTREMITIES: 2+ peripheral pulses with no evidence of peripheral edema and no calf tenderness noted. NEUROLOGIC patient is awake, alert and oriented -3. - Labs CBC & Chem 7: 03/03/19 06:47 03/03/19 06:47 Labs: Abnormal Lab Results - Last 24 Hours (Table) 03/03/19 03/03/19 03/03/19 Range/Units 04:19 06:47 06:47 RBC 3.15 L (3.80-5.40) m/uL Hgb 9.8 L (11.4-16.0) gm/dL Hct 29.8 L (34.0-46.0) % BUN 23 H (7-17) mg/dL POC Glucose (mg/dL) 103 H (75-99) mg/dL Assessment and Plan Plan: Assessment and plan #1 syncope, rule out cardiac causes, VQ scan low probability for PE #2 abnormality in troponin, not consistent with acute coronary syndrome, likely secondary to supply and demand mismatch #3 known history of coronary artery disease with prior RCA stent, patient underwent a cardiac catheterization in July 2017 which revealed heavily calcified right and left coronary systems with patent stent to the RCA, mild disease in the circumflex proximal and mid LAD, medical therapy was advised at that time. #4 hypertension, uncontrolled #5 hyperlipidemia #6 prior DVT #7 history of abdominal aortic aneurysm with stent graft #8 anemia , with recent GI workup at [facility] #9 GERD #10 COPD #11 nicotine dependence #12 diastolic congestive heart failure acute on chronic, patient had an echo performed in November 2017 which revealed a normal left ventricular systolic function. #13 paroxysmal atrial fibrillation not on anticoagulation Plan Echocardiogram with Doppler study revealed a normal left ventricular systolic function. No evidence of tachycardia or bradycardia arrhythmias. Continue Eliquis 2-1/2 mg one tablet by mouth twice a day. She may be able to be discharged home once cleared by primary, a follow-up appointment in the office post discharge. DNP note has been reviewed, I agree with a documented findings and plan of care. Patient was seen and examined.
--- NOTE | 2019-03-03 15:37 | P.DS ---
Providers Date of admission: 03/02/19 07:33 Expected date of discharge: 03/03/19 Attending physician: Pavel Weaver Consults: 02/28/19 14:01 Consult Physician Routine Consulting Provider: Keven Zavala Consult Reason/Comments: near syncope, paroxismal a fib w/ rvr Do you want consulting provider notified?: Yes Primary care physician: Jenaro Colbert [facility] Course: This is a 68-year-old female one of Dr. Colbert patient with past medical history of hepatitis C post the Harvoni therapy, history of CAD with non-ST elevated myocardial infarction in April 2017 status post heart catheterization and stenting of the RCA with heavily calcified right and left coronary systems and recommendations to maximize medical treatment, COPD, asthma, chronic hypoxic respiratory failure on home O2 at 3 L nasal cannula, previous history of DVT along with Takosubu syndrome, GI bleed (April 2016). 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 Islas at that time. History of carotid stenosis and aortic aneurysm followed by Dr. Costa. Patient had recent hospitalization for small bowel obstruction was transferred [facility] due to her underlying abdominal aortic aneurysm. Patient states that she was treated with conservative management. While hospitalized she did have about of atrial fibrillation but was not started on anticoagulation. Patient now presents to the [facility] emergency center due to syncopal episode. The patient was having a bowel movement and maintenance draining became weak and was unable to flush the toilet. She was standing to wash her hands and continued to have weakness and she apparently sat down with loss of consciousness for a few seconds. She was not able to answer any questions according to family. She denied incontinence of urine or stool. Patient was brought into [facility] emergency center by EMS for evaluation. Chest x-ray showed chronic emphysema) she will changes with new tiny left pleural effusion. EKG was in normal sinus rhythm was ST-T wave changes in the anterior leads and mild ST depression in the lateral leads. VQ scan showed low evidence of pulmonary embolism. A d-dimer was 20.8, hemoglobin 9.5 white count 9.5, creatinine 1.2, troponin 0.014, 0.044 and 0.026, BNP 15,000, TSH 14.4. Patient apparently had atrial fibrillation with RVR during EMS transport and subsequently converted. 03/02: Patient denies any new complaints. She is requesting a stool softener. We will add in physical therapy. Cardiology has started eliquis. Patient states she has been out of bed for the first time in the recliner today. Repeat lab work reveals a white count of 7.7, hemoglobin 9.2, BUN 22 and creatinine 0.95, chloride 109. Patient has been afebrile, heart rate 72, blood pressure 160/70, pulse ox 90% on 2 L nasal cannula. air sampling and monitoring is a sinus rhythm. Case management has made arrangements for VNA. Anticipate discharge home tomorrow. 03/03: Patient states that she has not had a bowel movement for the last 2 days. She has been trying to have a bowel movement every other day at home. Her abdomen is soft. Patient concerned that her is not available for a ride and her daughters currently sleeping because she was in the ER last night. Patient's discharge may be delayed until ride is available. Patient was started on eliquis yesterday which will be continued. Echocardiogram reveals EF of 55- 60%, mild concentric left ventricular hypertrophy, mild aortic valve sclerosis, mild mitral regurgitation, moderate tricuspid regurgitation, mild pulmonary hypertension. Patient has been afebrile, orthostatic vital signs negative. Blood pressure 168/72, heart rate 68, pulse ox 97% on room air. air sampling and monitoring has been a sinus rhythm. Patient will be discharged home today in stable condition. Discharge diagnoses: 1. Syncopal episode, rule out arrhythmia. No arrhythmias have been noted. 2. Abnormal troponin, acute coronary syndrome ruled out by cardiology. 3. Recent admission for small bowel obstruction, conservative management, resolved. 4. Patient reported episodes of atrial fibrillation while at [facility]. 5. Hypertension, hypertensive cardiovascular disease. 6. Peripheral vascular disease with history of left common iliac artery stent graft with focal aneurysm 3.2 cm severe stenosis beyond aneurysm, right common iliac artery 2.6 cm with modest focal stenosis just beyond. Abdominal aortic aneurysm status post endovascular stent, known history of Carotid stenosis. Monitored by Dr. Costa. 7. Bilateral avascular necrosis bilateral femoral seen by Dr. Whipple orthopedic surgeon no intervention needed 8. History of Viridans strep bacteremia secondary to endovascular infection, endocarditis ruled out September 04 4 weeks IV vancomycin completed. 9. Chronic back pain. 10. Chronic anemia of chronic disease. 11. PUD. 12. Hep C S/P Harvoni therapy. 13. Hyperlipidemia. 14. Chronic tobacco use and dependence. 15. Migraine Headache. 16. Restless leg syndrome. 17. Obstructive sleep apnea. 18. Generalized anxiety disorder with panic disorder and recurrent depression. Discharge plan: Home with VNA Impression and plan of care have been directed as dictated by the signing physician. Coby Joaquin nurse practitioner acting as scribe for signing physician. Patient Condition at Discharge: Good Plan - Discharge Summary Discharge Rx Participant: No New Discharge Prescriptions: New Dicyclomine [Bentyl] 20 mg PO QID PRN tab PRN Reason: Dyspepsia Apixaban [Eliquis] 2.5 mg PO BID #60 tablet amLODIPine [Norvasc] 5 mg PO DAILY #30 tab Polyethylene Glycol 3350 [Miralax] 17 gm PO DAILY #30 packet Famotidine [Pepcid] 20 mg PO DAILY #30 tab Sennosides-Docusate Sodium [Senokot-S] 2 each PO DAILY #60 tab Continue Sucralfate [Carafate] 1 gm PO AC-TID Tiotropium 18 Mcg/Puff [Spiriva] 1 cap INHALATION RT-BID Pramipexole [Mirapex] 0.125 mg PO HS DULoxetine HCL [Cymbalta] 60 mg PO BID Aspirin 81 mg PO DAILY chew Pravastatin Sodium [Pravachol] 80 mg PO HS #0 tab Nitroglycerin Sl Tabs [Nitrostat] 0.4 mg SUBLINGUAL Q5M PRN PRN Reason: Chest Pain guaiFENesin [Mucinex] 1,200 mg PO Q12H Dexlansoprazole [Dexilant] 60 mg PO DAILY Calcium Carbonate/Vitamin D3 [Calcium 600-Vit D3 400 Caplet] 1 tab PO BID Ipratropium-Albuterol Nebulize [Duoneb 0.5 mg-3 mg/3 ml Soln] 3 ml INHALATION RT-QID Albuterol Inhaler [Ventolin Hfa Inhaler] 1 - 2 puff INHALATION RT-Q6H PRN PRN Reason: Shortness Of Breath cycloSPORINE [Restasis] 1 drop BOTH EYES BID Topiramate [Topamax] 50 mg PO BID Butalb/APAP/Caff 50-325-40Mg [Fioricet 50-325-40] 1 - 2 tab PO Q8H PRN PRN Reason: Migraine Headache SILVER sulfADIAZINE CREAM [Silvadene Cream] 1 applic TOPICAL DAILY ALPRAZolam [Xanax] 0.5 mg PO TID PRN PRN Reason: Anxiety Levothyroxine Sodium [Synthroid] 25 mcg PO DAILY Multivitamins, Thera [Multivitamin (formulary)] 1 tab PO DAILY Nebivolol [Bystolic] 5 mg PO BID Discontinued Atenolol [Tenormin] 12.5 mg PO HS No Action Fesoterodine Fumarate [Toviaz] 8 mg PO DAILY Discharge Medication List Sucralfate [Carafate] 1 gm PO AC-TID 12/27/13 [History] Pramipexole [Mirapex] 0.125 mg PO HS 09/12/14 [History] Tiotropium 18 Mcg/Puff [Spiriva] 1 cap INHALATION RT-BID 09/12/14 [History] DULoxetine HCL [Cymbalta] 60 mg PO BID 07/18/17 [History] Aspirin 81 mg PO DAILY chew 09/02/17 [Rx] Pravastatin Sodium [Pravachol] 80 mg PO HS #0 tab 09/02/17 [Rx] Dexlansoprazole [Dexilant] 60 mg PO DAILY 12/12/17 [History] Nitroglycerin Sl Tabs [Nitrostat] 0.4 mg SUBLINGUAL Q5M PRN 12/12/17 [History] guaiFENesin [Mucinex] 1,200 mg PO Q12H 12/12/17 [History] Albuterol Inhaler [Ventolin Hfa Inhaler] 1 - 2 puff INHALATION RT-Q6H PRN 10/08/18 [History] Butalb/APAP/Caff 50-325-40Mg [Fioricet 50-325-40] 1 - 2 tab PO Q8H PRN 10/08/18 [History] Calcium Carbonate/Vitamin D3 [Calcium 600-Vit D3 400 Caplet] 1 tab PO BID 10/08/18 [History] Ipratropium-Albuterol Nebulize [Duoneb 0.5 mg-3 mg/3 ml Soln] 3 ml INHALATION RT-QID 10/08/18 [History] Topiramate [Topamax] 50 mg PO BID 10/08/18 [History] cycloSPORINE [Restasis] 1 drop BOTH EYES BID 10/08/18 [History] ALPRAZolam [Xanax] 0.5 mg PO TID PRN 02/14/19 [History] SILVER sulfADIAZINE CREAM [Silvadene Cream] 1 applic TOPICAL DAILY 02/14/19 [History] Levothyroxine Sodium [Synthroid] 25 mcg PO DAILY 02/28/19 [History] Multivitamins, Thera [Multivitamin (formulary)] 1 tab PO DAILY 02/28/19 [History] Nebivolol [Bystolic] 5 mg PO BID 02/28/19 [History] Apixaban [Eliquis] 2.5 mg PO BID #60 tablet 03/02/19 [Rx] Dicyclomine [Bentyl] 20 mg PO QID PRN tab 03/02/19 [Rx] Famotidine [Pepcid] 20 mg PO DAILY #30 tab 03/03/19 [Rx] Fesoterodine Fumarate [Toviaz] 8 mg PO DAILY 03/03/19 [History] Polyethylene Glycol 3350 [Miralax] 17 gm PO DAILY #30 packet 03/03/19 [Rx] Sennosides-Docusate Sodium [Senokot-S] 2 each PO DAILY #60 tab 03/03/19 [Rx] amLODIPine [Norvasc] 5 mg PO DAILY #30 tab 03/03/19 [Rx] Follow up Appointment(s)/Referral(s): Jenaro Colbert DO [Primary Care Provider] - 1 Week (Office is closed. Please call to schedule appointment. ) Shaji Garcia MD [STAFF PHYSICIAN] - 1 Week (Spoke to information receptionist. Office will cll with appointment time. ) [facility] Visiting Nurse, [NON-STAFF] - Patient Instructions/Handouts: A-fib (Atrial Fibrillation) (DC), Safe Use of Anticoagulants (DC) Activity/Diet/Wound Care/Special Instructions: Rx for Eliquis is at [facility], please give patient free 30day coupon at discharge. Coupon is in her chart. May obtain samples from [facility] Discharge Disposition: HOME WITH HOME HEALTH SERVICES
[2019-03-03 19:04] VITALS: BP 151/63; PULSE 66
== END 2019-03-03 18:57 | disposition home health service (06) | DRG 312 ==
LOC: EC 11:22 → 3SCARD 14:00 → OBSVTOIN 03-02 07:33
PROVIDERS: ADMIT Internal Medicine; ATTEND Internal Medicine
DX: R55 Syncope and collapse (principal); I50.33 Acute on chronic diastolic (congestive) heart failure; E87.2 Acidosis; F33.9 Major depressive disorder, recurrent, unspecified; J96.11 Chronic respiratory failure with hypoxia; M87.9 Osteonecrosis, unspecified; N17.9 Acute kidney failure, unspecified; I11.0 Hypertensive heart disease with heart failure; I27.20 Pulmonary hypertension, unspecified; J43.9 Emphysema, unspecified; I65.29 Occlusion and stenosis of unspecified carotid artery; E86.0 Dehydration; D63.8 Anemia in other chronic diseases classified elsewhere; I48.0 Paroxysmal atrial fibrillation; B19.20 Unspecified viral hepatitis C without hepatic coma; E78.5 Hyperlipidemia, unspecified; F17.200 Nicotine dependence, unspecified, uncomplicated; F41.0 Panic disorder [episodic paroxysmal anxiety]; G25.81 Restless legs syndrome; G43.909 Migraine, unspecified, not intractable, without status migrainosus; G47.33 Obstructive sleep apnea (adult) (pediatric); G89.29 Other chronic pain; I25.10 Atherosclerotic heart disease of native coronary artery without angina pectoris; I25.2 Old myocardial infarction; I71.4 Abdominal aortic aneurysm, without rupture; I73.9 Peripheral vascular disease, unspecified; K21.9 Gastro-esophageal reflux disease without esophagitis; K27.9 Peptic ulcer, site unspecified, unspecified as acute or chronic, without hemorrhage or perforation; M54.9 Dorsalgia, unspecified; R77.9 Abnormality of plasma protein, unspecified; G47.00 Insomnia, unspecified; R79.1 Abnormal coagulation profile; N32.81 Overactive bladder; Z79.82 Long term (current) use of aspirin; Z79.890 Hormone replacement therapy; Z79.899 Other long term (current) drug therapy; Z86.718 Personal history of other venous thrombosis and embolism; Z87.01 Personal history of pneumonia (recurrent); Z71.6 Tobacco abuse counseling; Z88.6 Allergy status to analgesic agent; Z88.1 Allergy status to other antibiotic agents; Z91.041 Radiographic dye allergy status; Z91.040 Latex allergy status; Z88.0 Allergy status to penicillin; Z88.2 Allergy status to sulfonamides; Z91.018 Allergy to other foods; Z98.42 Cataract extraction status, left eye; Z98.41 Cataract extraction status, right eye; Z96.1 Presence of intraocular lens; Z87.892 Personal history of anaphylaxis; Z90.710 Acquired absence of both cervix and uterus; Z95.5 Presence of coronary angioplasty implant and graft; Z90.49 Acquired absence of other specified parts of digestive tract; Z99.81 Dependence on supplemental oxygen; Z86.79 Personal history of other diseases of the circulatory system; Z82.49 Family history of ischemic heart disease and other diseases of the circulatory system; Z82.5 Family history of asthma and other chronic lower respiratory diseases; Z83.79 Family history of other diseases of the digestive system
CPT/HCPCS: 36415; 71046; 78582; 80048; 80053; 81001; 82803; 83880; 84439; 84443; 84484; 85025; 85379; 85610; 85730; 93005; 93306; 94640; 94644; 96361; 96365; 96374; 96376; 99285

== ENCOUNTER 2019-05-02 09:43 | Emergency (ER) | payer MEDICARE ==
[2019-05-02] MEDS ORDERED: methylPREDNISolone SOD SUCCI 125 MG/2 ML VIAL IV STA (10:02)
[2019-05-02] MEDS ORDERED: FAMOTIDINE 20 MG/2 ML VIAL IV STA (10:03)
[2019-05-02] MEDS ORDERED: diphenhydrAMINE 50 MG/ML 1 ML VIAL IVP STA (10:03)
[2019-05-02] MEDS ORDERED: SODIUM CHLORIDE 0.9% 1,000 ML IV STA (10:11)
[2019-05-02] MEDS ORDERED: LABETALOL 5 MG/ML VIAL MDV IVP STA (10:15)
--- NOTE | 2019-05-02 10:27 | ED ---
Abdominal Pain HPI - General Chief Complaint: Abdominal Pain Stated Complaint: abdominal pain Time Seen by Provider: 05/02/19 09:47 Source: patient, RN notes reviewed, old records reviewed Mode of arrival: EMS Limitations: no limitations - History of Present Illness Initial Comments: Patient is a 5-year-old female with history of abdominal aortic aneurysm presents emergency department if abdominal pain radiates towards her back for 5 days. She reports decreased appetite. She reports some diarrhea and generalized weakness. Patient states she's had no vomiting. She states that she has had some back pain and reports it seems him worse with certain movements. She denies any recent falls or trauma. Patient reports that she fell she was somewhat hard time with getting up and walking due to pain and had some generalized weakness. - Related Data Home Medications Medication Instructions Recorded Confirmed Sucralfate [Carafate] 1 gm PO AC-TID 12/27/13 02/28/19 Pramipexole [Mirapex] 0.125 mg PO HS 09/12/14 02/28/19 Tiotropium 18 Mcg/Puff [Spiriva] 1 cap INHALATION RT-BID 09/12/14 02/28/19 DULoxetine HCL [Cymbalta] 60 mg PO BID 07/18/17 02/28/19 Dexlansoprazole [Dexilant] 60 mg PO DAILY 12/12/17 02/28/19 Nitroglycerin Sl Tabs [Nitrostat] 0.4 mg SUBLINGUAL Q5M PRN 12/12/17 02/28/19 guaiFENesin [Mucinex] 1,200 mg PO Q12H 12/12/17 02/28/19 Albuterol Inhaler [Ventolin Hfa 1 - 2 puff INHALATION RT-Q6H PRN 10/08/18 02/28/19 Inhaler] Butalb/APAP/Caff 50-325-40Mg 1 - 2 tab PO Q8H PRN 10/08/18 02/28/19 [Fioricet 50-325-40] Calcium Carbonate/Vitamin D3 1 tab PO BID 10/08/18 02/28/19 [Calcium 600-Vit D3 400 Caplet] Ipratropium-Albuterol Nebulize 3 ml INHALATION RT-QID 10/08/18 02/28/19 [Duoneb 0.5 mg-3 mg/3 ml Soln] Topiramate [Topamax] 50 mg PO BID 10/08/18 02/28/19 cycloSPORINE [Restasis] 1 drop BOTH EYES BID 10/08/18 02/28/19 ALPRAZolam [Xanax] 0.5 mg PO TID PRN 02/14/19 02/28/19 SILVER sulfADIAZINE CREAM 1 applic TOPICAL DAILY 02/14/19 02/28/19 [Silvadene Cream] Levothyroxine Sodium [Synthroid] 25 mcg PO DAILY 02/28/19 02/28/19 Multivitamins, Thera [Multivitamin 1 tab PO DAILY 02/28/19 02/28/19 (formulary)] Nebivolol [Bystolic] 5 mg PO BID 02/28/19 02/28/19 Fesoterodine Fumarate [Toviaz] 8 mg PO DAILY 03/03/19 03/03/19 Previous Rx's Medication Instructions Recorded Aspirin 81 mg PO DAILY chew 09/02/17 Pravastatin Sodium [Pravachol] 80 mg PO HS #0 tab 09/02/17 Apixaban [Eliquis] 2.5 mg PO BID #60 tablet 03/02/19 Dicyclomine [Bentyl] 20 mg PO QID PRN tab 03/02/19 Famotidine [Pepcid] 20 mg PO DAILY #30 tab 03/03/19 Polyethylene Glycol 3350 [Miralax] 17 gm PO DAILY #30 packet 03/03/19 Sennosides-Docusate Sodium 2 each PO DAILY #60 tab 03/03/19 [Senokot-S] amLODIPine [Norvasc] 5 mg PO DAILY #30 tab 03/03/19 traMADol HCl [Ultram] 50 mg PO Q4HR PRN 3 Days #18 tab 05/02/19 Allergies Allergy/AdvReac Type Severity Reaction Status Date / Time naproxen sodium [From Aleve] Allergy Severe Anaphylaxis Verified 05/02/19 09:55 adhesive Allergy Rash/Hives Verified 05/02/19 09:55 cinnamon [Cinnamon] Allergy Dyspnea Verified 05/02/19 09:55 clindamycin Allergy Anaphylaxis Verified 05/02/19 09:55 codeine Allergy Nausea & Verified 05/02/19 09:55 Vomiting gentamicin [Gentamicin] Allergy SWELLING Verified 05/02/19 09:55 OF FACE W/ EYE DROPS paola Allergy Dyspnea Verified 05/02/19 09:55 Iodinated Contrast- Oral and Allergy Dyspnea Verified 05/02/19 09:55 IV Dye latex Allergy Rash/Hives Verified 05/02/19 09:55 levothyroxine sodium Allergy Unknown Verified 05/02/19 09:55 [From Synthroid] losartan Allergy Unknown Verified 05/02/19 09:55 montelukast sodium Allergy Wheezing Verified 05/02/19 09:55 [From Singulair] pantoprazole sodium Allergy Abdominal Verified 05/02/19 09:55 [From Protonix] Pain Penicillins Allergy Rash/Hives Verified 05/02/19 09:55 red dye Allergy Abdominal Verified 05/02/19 09:55 Pain Sulfa (Sulfonamide Allergy Swelling Verified 05/02/19 09:55 Antibiotics) IN MOUTH sulfamethoxazole Allergy swelling Verified 05/02/19 09:55 [From Bactrim] tongue sulfanilamide Allergy Unknown Verified 05/02/19 09:55 trimethoprim [From Bactrim] Allergy Swelling Verified 05/02/19 09:55 venom-honey bee Allergy Dyspnea Verified 05/02/19 09:55 [bee venom (honey bee)] BANDAIDS Allergy Rash/Hives Uncoded 05/02/19 09:55 Dye for gallbladder scan. Allergy Anaphylaxis Uncoded 05/02/19 09:55 tomatoes AdvReac Abdominal Uncoded 05/02/19 09:55 Pain Review of Systems ROS Statement: Those systems with pertinent positive or pertinent negative responses have been documented in the HPI. ROS Other: All systems not noted in ROS Statement are negative. Past Medical History Past Medical History: Atrial Fibrillation, Asthma, Coronary Artery Disease (CAD), Chest Pain / Angina, COPD, Deep Vein Thrombosis (DVT), GERD/Reflux, GI Bleed, Hypertension, Liver Disease, Memory Impairment, Myocardial Infarction (M I), Pneumonia, Respiratory Disorder, Sleep Apnea/CPAP/BIPAP, Vascular Disorder Additional Past Medical History / Comment(s): on 10/25/18 pt states was having pizza with family and food got stuck, pt had small amount of emesis. She went to bed and woke up to discover that she was incontinent of stool while she slept. Pt states that this has never happened. aLSO STATES THAT IT IS GETTING HARDER TO SWALLOW. HEP C. Aortic aneurysm with stent-being monitored, Takosubu syndrome in 2016, R groin dissection/cardiac cath, recent bacteremia-blood cultures positive for veridans strep-completed antibiotics, bronchitis, home O2 at 3L/NC most of the time, LG without device-stable, DVT R leg, lower GI bleed, hepatitis C with Harvoni treatment, anemia with iron infusions x2, bilateral femoral head avascular necrosis, RLS, migraines, insomnia, constipation, overactive bladder, post menopausal bleed. Last Myocardial Infarction Date:: 07/2017 History of Any Multi-Drug Resistant Organisms: None Reported Past Surgical History: Bladder Surgery, Cholecystectomy, Heart Catheterization With Stent, Hysterectomy, Orthopedic Surgery Additional Past Surgical History / Comment(s): 11/28/17 lap albert, PCI with stent 2010, cardiac cath 07/2017-treat medically, common iliac artery stent 2005, exploratory lap, liver bx, R foot surgery d/t infection, R shoulder arthroscopic surgery, CAN, EGD, colonoscopy years ago, R leg varicose vein surgery, bladder suspension, eric cataract sx Past Anesthesia/Blood Transfusion Reactions: No Reported Reaction Date of Last Stent Placement:: 2010 Past Psychological History: Anxiety, Depression, Panic Disorder Smoking Status: Current every day smoker - Past Family History Brother(s) Family Medical History: Coronary Artery Disease (CAD), Myocardial Infarction (ME) Father Additional Family Medical History / Comment(s): FROM CIRRHOSIS OF THE LIVER Mother Family Medical History: COPD Additional Family Medical History / Comment(s): FROM AAA, HAD HX of TB. General Exam - General Exam Comments Initial Comments: Is a very thin 5-year-old female. Cachectic appearance. Limitations: no limitations General appearance: alert, in no apparent distress Head exam: Present: atraumatic, normocephalic, normal inspection Eye exam: Present: normal appearance, PERRL, EOMI. Absent: scleral icterus, conjunctival injection, periorbital swelling ENT exam: Present: normal exam, mucous membranes moist Neck exam: Present: normal inspection. Absent: tenderness, meningismus, lymphadenopathy Respiratory exam: Present: normal lung sounds bilaterally. Absent: respiratory distress, wheezes, rales, rhonchi, stridor Cardiovascular Exam: Present: regular rate, normal rhythm, normal heart sounds. Absent: systolic murmur, diastolic murmur, rubs, gallop, clicks GI/Abdominal exam: Present: soft, tenderness (Lower abdominal tenderness.), normal bowel sounds. Absent: distended, guarding, rebound, rigid Back exam: Present: normal inspection, vertebral tenderness (lumbar) Neurological exam: Present: alert, oriented X3, CN II-XII intact Psychiatric exam: Present: normal affect, normal mood Course Vital Signs 05/02/19 05/02/19 05/02/19 09:48 12:10 13:25 Temperature 97.6 F Pulse Rate 76 83 67 Respiratory 20 18 18 Rate Blood Pressure 182/88 146/64 163/82 O2 Sat by Pulse 100 94 L 98 Oximetry 05/02/19 14:07 Temperature Pulse Rate 64 Respiratory 16 Rate Blood Pressure 139/68 O2 Sat by Pulse 100 Oximetry Medical Decision Making - Medical Decision Making This is a 68-year-old female cachectic appearing, presents today with diarrhea for 5 days, as antibiotics. She states that she done a bloody stool. Patient has minimal tenderness on exam. On history taking she does have history of AAA with an aneurysm repair. Pulses were found with Doppler and bilateral lower extremity. Patient had a stat CT angiogram of the thoracic and abdominal aorta to rule out dissection. In this is negative for any signs of abnormality related to her aorta or repair. There is evidence of atrophic kidney. Lab work did show some dehydration with elevated BUN and creatinine compared to her baseline. She was given a 2 L bolus. Patient has also found to have degenerative disease in her back. Discussed that seems to likely related patient's positional pain. Patient was informed there is no sign of aneurysm changes and she is hopeful that. She is a long smoking history of emphysema change. Patient was advised that she's had no diarrhea in ER. I discussed that Patient could be provided short course of pain medicine and follow-up with primary care doctor in regards to mechanical back pain. Patient case was discussed with Dr. Eason. - Lab Data Result diagrams: 05/02/19 11:05 05/02/19 11:05 Lab Results 05/02/19 05/02/19 05/02/19 Range/Units 11:05 11:05 11:05 WBC 7.7 (3.8-10.6) k/uL RBC 3.83 (3.80-5.40) m/uL Hgb 11.6 (11.4-16.0) gm/dL Hct 35.5 (34.0-46.0) % MCV 92.7 (80.0-100.0) fL MCH 30.2 (25.0-35.0) pg MCHC 32.6 (31.0-37.0) g/dL RDW 15.2 (11.5-15.5) % Plt Count 137 L (150-450) k/uL Neutrophils % 74 % Lymphocytes % 19 % Monocytes % 5 % Eosinophils % 1 % Basophils % 0 % Neutrophils # 5.7 (1.3-7.7) k/uL Lymphocytes # 1.5 (1.0-4.8) k/uL Monocytes # 0.4 (0-1.0) k/uL Eosinophils # 0.1 (0-0.7) k/uL Basophils # 0.0 (0-0.2) k/uL PT 10.3 (9.0-12.0) sec INR 1.0 (<1.2) APTT 20.4 L (22.0-30.0) sec Sodium 143 (137-145) mmol/L Potassium 3.3 L (3.5-5.1) mmol/L Chloride 113 H (98-107) mmol/L Carbon Dioxide 22 (22-30) mmol/L Anion Gap 8 mmol/L BUN 28 H (7-17) mg/dL Creatinine 1.55 H (0.52-1.04) mg/dL Est GFR (CKD-EPI)AfAm 39 (>60 ml/min/1.73 sqM) Est GFR (CKD-EPI)NonAf 34 (>60 ml/min/1.73 sqM) Glucose 102 H (74-99) mg/dL Calcium 8.5 (8.4-10.2) mg/dL Total Bilirubin 0.4 (0.2-1.3) mg/dL AST 31 (14-36) U/L ALT 19 (9-52) U/L Alkaline Phosphatase 81 (38-126) U/L Total Protein 6.0 L (6.3-8.2) g/dL Albumin 3.3 L (3.5-5.0) g/dL Amylase 45 (30-110) U/L Lipase 75 (23-300) U/L Urine Color Urine Appearance (Clear) Urine pH (5.0-8.0) Ur Specific Ruffin (1.001-1.035) Urine Protein (Negative) Urine Glucose (UA) (Negative) Urine Ketones (Negative) Urine Blood (Negative) Urine Nitrite (Negative) Urine Bilirubin (Negative) Urine Urobilinogen (<2.0) mg/dL Ur Leukocyte Esterase (Negative) Urine RBC (0-5) /hpf Urine WBC (0-5) /hpf Hyaline Casts (0-2) /lpf Urine Mucus (None) /hpf 05/02/19 Range/Units 12:15 WBC (3.8-10.6) k/uL RBC (3.80-5.40) m/uL Hgb (11.4-16.0) gm/dL Hct (34.0-46.0) % MCV (80.0-100.0) fL MCH (25.0-35.0) pg MCHC (31.0-37.0) g/dL RDW (11.5-15.5) % Plt Count (150-450) k/uL Neutrophils % % Lymphocytes % % Monocytes % % Eosinophils % % Basophils % % Neutrophils # (1.3-7.7) k/uL Lymphocytes # (1.0-4.8) k/uL Monocytes # (0-1.0) k/uL Eosinophils # (0-0.7) k/uL Basophils # (0-0.2) k/uL PT (9.0-12.0) sec INR (<1.2) APTT (22.0-30.0) sec Sodium (137-145) mmol/L Potassium (3.5-5.1) mmol/L Chloride (98-107) mmol/L Carbon Dioxide (22-30) mmol/L Anion Gap mmol/L BUN (7-17) mg/dL Creatinine (0.52-1.04) mg/dL Est GFR (CKD-EPI)AfAm (>60 ml/min/1.73 sqM) Est GFR (CKD-EPI)NonAf (>60 ml/min/1.73 sqM) Glucose (74-99) mg/dL Calcium (8.4-10.2) mg/dL Total Bilirubin (0.2-1.3) mg/dL AST (14-36) U/L ALT (9-52) U/L Alkaline Phosphatase (38-126) U/L Total Protein (6.3-8.2) g/dL Albumin (3.5-5.0) g/dL Amylase (30-110) U/L Lipase (23-300) U/L Urine Color Light Yellow Urine Appearance Clear (Clear) Urine pH 7.0 (5.0-8.0) Ur Specific Ruffin 1.013 (1.001-1.035) Urine Protein 2+ H (Negative) Urine Glucose (UA) Negative (Negative) Urine Ketones Negative (Negative) Urine Blood Trace H (Negative) Urine Nitrite Negative (Negative) Urine Bilirubin Negative (Negative) Urine Urobilinogen <2.0 (<2.0) mg/dL Ur Leukocyte Esterase Negative (Negative) Urine RBC 1 (0-5) /hpf Urine WBC <1 (0-5) /hpf Hyaline Casts 1 (0-2) /lpf Urine Mucus Rare H (None) /hpf 05/02/19 12:47 EKG shows sinus bradycardia, possible left atrial enlargement. Left axis deviation. Nonspecific T-wave abnormality. Prolonged QT. Abnormal ECG. Ventricular rate of 59 bpm. Verbal is 166 ms. Frustration is 90 ms. QT QTc is 5/502 ms. No evidence of ST elevation. - Radiology Data Radiology results: report reviewed Stable thoracic aortic aneurysm. Aortoiliac stent graft in the abdomen is patent throughout its course. Tenuate external iliac arteries. Blood flow to the level of the common femoral arteries. Extensive bullous emphysema change. 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 Degenerative changes in the spine. Disposition Clinical Impression: Dehydration, Mechanical back pain, Diarrhea Disposition: HOME SELF-CARE Condition: Good Instructions (If sedation given, give patient instructions): Dehydration (ED) Additional Instructions: Patient advised at this follow-up with her primary care physician. Return to the emergency department if any alarming signs or symptoms occur. Patient should rest remain hydrated. Use medication to help with her stools and recommended occur liquid diet for the next 1-2 days. Patient should take the short course of pain medicine for the back pain and degenerative disc changes. Prescriptions: traMADol HCl [Ultram] 50 mg PO Q4HR PRN 3 Days #18 tab PRN Reason: Pain Is patient prescribed a controlled substance at d/c from ED?: No Referrals: Sayra,Jenaro, DO [Primary Care Provider] - 1-2 days Time of Disposition: 14:18
[2019-05-02 11:21] LABS: Basophils % (A) 0 %; Eosinophils # (A) 0.1 k/uL (0-0.7); Eosinophils % (A) 1 %; HCT 35.5 % (34.0-46.0); HGB 11.6 gm/dL (11.4-16.0); Lymphocytes # (A) 1.5 k/uL (1.0-4.8); Lymphocytes % (A) 19 %; MCH 30.2 pg (25.0-35.0); MCHC 32.6 g/dL (31.0-37.0); MCV 92.7 fL (80.0-100.0); Mean Platelet Volume 7.4; Monocytes # (A) 0.4 k/uL (0-1.0); Monocytes % (A) 5 %; Neutrophils # (A) 5.7 k/uL (1.3-7.7); Neutrophils % (A) 74 %; Platelet Count 137 k/uL (150-450); RBC 3.83 m/uL (3.80-5.40); RDW 15.2 % (11.5-15.5); WBC 7.7 k/uL (3.8-10.6)
[2019-05-02 11:30] LABS: Albumin 3.3 g/dL (3.5-5.0); Calcium 8.5 mg/dL (8.4-10.2); Potassium 3.3 mmol/L (3.5-5.1); Total Bilirubin 0.4 mg/dL (0.2-1.3)
[2019-05-02] MEDS ORDERED: SODIUM CHLORIDE 0.9% 1,000 ML IV ONE ×2 (11:33→13:02)
[2019-05-02 11:45] LABS: Prothrombin Time 10.3 sec (9.0-12.0)
[2019-05-02 11:50] LABS: Partial Thromboplastin Time 20.4 sec (22.0-30.0)
--- NOTE | 2019-05-02 12:30 | CT ---
EXAMINATION TYPE: CT angio thor/abd pel aorta DATE OF EXAM: 05/02/2019 COMPARISON: Previous study dated 02/14/2019. HISTORY: Abdominal pain. HTN. HX AAA CT DLP: 604 mGycm. Automated Exposure Control for Dose Reduction was Utilized. CONTRAST: CT scan of the thorax, abdomen and pelvis is performed without and with IV Contrast, patient injected with 100 ml mL of Isovue 300. FINDINGS: There are extensive bullous emphysematous changes throughout the lungs most marked in the u pper lobes. There is no significant axillary, internal mammary, mediastinal or hilar adenopathy. Ther e is no pleural or pericardial fluid. The heart is not enlarged. There is fusiform dilatation of the lateral aspect of the transverse thoracic aortic arch. Maximal tr ansverse dimension is 3.8 cm, unchanged from previous. The there is atheromatous irregularity of the descending thoracic aorta which remains normal in caliber with some ectasia of the aortic hiatus. The re are multiple small ulcer seen in the thoracic aorta. Within the abdomen, the liver, spleen and gallbladder appear normal. Both adrenal glands appear normal. 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 Both kidneys demonstrate function of the great er in the ectopic kidney. The pancreas is not well-visualized. There is an aortoiliac stent graft in place. The right iliac component is occluded just distal to the takeoff of the internal iliac artery. Both external iliacs are reconstituted are seen to be patent t o the level of the common femoral artery. The bladder is distended. Large and small bowel loops appear normal. There is no free fluid and no free air identified. There is hypertrophic spondylosis and facet arthropathy within the lumbar spine. IMPRESSION: 1. STABLE THORACIC AORTIC ANEURYSM. 2. AORTOILIAC STENT GRAFT WITHIN THE ABDOMEN IS PATENT THROUGHOUT ITS COURSE. ATTENUATED EXTERNAL OLIVIA AC ARTERIES PROVIDE BLOOD FLOW TO THE LEVEL OF THE COMMON FEMORAL ARTERIES. 3. EXTENSIVE BULLOUS EMPHYSEMATOUS CHANGE. 4. ASYMMETRIC FUNCTION OF THE KIDNEYS WITH THE ECTOPIC RIGHT KIDNEY FUNCTIONING BETTER THAN THE LEFT. 5. DEGENERATIVE CHANGES WITHIN THE SPINE.
[2019-05-02 12:40] LABS: Mucus,Urine Rare /hpf; RBC,Urine 1 /hpf (0-5); WBC,Urine <1 /hpf (0-5)
[2019-05-02 13:14] LABS: Appearance,Urine Clear (Clear); Bilirubin,Urine Negative (Negative); Blood,Urine Trace (Negative); Color,Urine Light Yellow; Glucose,Urine (UA) Negative (Negative); Hyaline Casts,Urine 1 /lpf (0-2); Ketones,Urine Negative (Negative); Leukocyte Esterase,Urine Negative (Negative); Nitrite,Urine Negative (Negative); Protein,Urine 2+ (Negative); Specific Gravity,Urine 1.013 (1.001-1.035); Urobilinogen,Urine <2.0 mg/dL (<2.0)
[2019-05-02] MEDS ORDERED: traMADol 50 MG STARTER PACK 3 TAB BTL PO STA (14:24)
[2019-05-02] MEDS ORDERED: amLODIPine 5 MG TAB PO STA (15:58)
[2019-05-02] MEDS ORDERED: NEBIVOLOL 5 MG TAB PO STA (15:58)
[2019-05-02] MEDS ORDERED: hydrALAZINE HCL 20 MG/ML 1 ML VIAL IVP STA (16:51)
[2019-05-02 17:49] VITALS: BP 129/65; PULSE 75; RESP 16; TEMP 98.6
== END 2019-05-02 17:40 | disposition home or self-care (01) ==
LOC: EC 09:43
DX: E86.0 Dehydration (principal); M54.9 Dorsalgia, unspecified; R19.7 Diarrhea, unspecified; R10.9 Unspecified abdominal pain; N26.1 Atrophy of kidney (terminal); I71.2 Thoracic aortic aneurysm, without rupture; I25.119 Atherosclerotic heart disease of native coronary artery with unspecified angina pectoris; I25.2 Old myocardial infarction; I48.91 Unspecified atrial fibrillation; J44.9 Chronic obstructive pulmonary disease, unspecified; I10 Essential (primary) hypertension; G47.30 Sleep apnea, unspecified; F41.0 Panic disorder [episodic paroxysmal anxiety]; F32.9 Major depressive disorder, single episode, unspecified; F17.200 Nicotine dependence, unspecified, uncomplicated; Z79.51 Long term (current) use of inhaled steroids; Z79.890 Hormone replacement therapy; Z79.899 Other long term (current) drug therapy; Z88.6 Allergy status to analgesic agent; Z91.048 Other nonmedicinal substance allergy status; Z91.018 Allergy to other foods; Z88.1 Allergy status to other antibiotic agents; Z88.5 Allergy status to narcotic agent; Z91.040 Latex allergy status; Z91.041 Radiographic dye allergy status; Z88.0 Allergy status to penicillin; Z88.2 Allergy status to sulfonamides; Z88.8 Allergy status to other drugs, medicaments and biological substances; Z91.02 Food additives allergy status; Z91.030 Bee allergy status; Z86.718 Personal history of other venous thrombosis and embolism; Z95.5 Presence of coronary angioplasty implant and graft
CPT/HCPCS: 36415; 93005; 80053; 82150; 83690; 85025; 85610; 85730; 81001; 71275; 74174; 99285; 96374; 96375 ×4; 96361 ×3; J0360; J1200; J2930; Q9967

== ENCOUNTER → 2019-06-11 | Outpatient (CLI) | payer MEDICARE ==
--- NOTE | 2019-06-11 15:27 | XR ---
EXAMINATION TYPE: XR abdomen 1V DATE OF EXAM: 06/11/2019 3:17 PM CLINICAL HISTORY: Chronic abdominal pain. TECHNIQUE: Single supine KUB image of the abdomen is obtained. COMPARISON: Abdominal x-ray February 16, 2019. CTA aorta May 02, 2019. FINDINGS: There is overlying aortobiiliac stent graft redemonstrated. Surgical clips bilateral groin region are again seen. Overall nonobstructive bowel gas pattern. Lung bases are clear. Osseous struct ures are intact. IMPRESSION: As above.
== END | disposition home or self-care (01) ==
LOC: RADXRMAIN 15:02
PROVIDERS: ATTEND Family Medicine
DX: R10.9 Unspecified abdominal pain (principal); Z97.8 Presence of other specified devices
CPT/HCPCS: 74018

== ENCOUNTER 2019-06-18 13:12 | Inpatient (IN) | payer MEDICARE ==
--- NOTE | 2019-06-18 14:09 | ED ---
General Adult HPI - General Chief complaint: Weakness Stated complaint: weakness Time Seen by Provider: 06/18/19 13:20 Source: EMS, RN notes reviewed, old records reviewed Mode of arrival: EMS Limitations: no limitations - History of Present Illness Initial comments: This is a 69-year-old female presents emergency Department complaining of generalized weakness. Patient states the weakness is been ongoing for a week or 2. If she is getting progressively worse. Patient states his past medical history significant for COPD. Patient states she's also had significant weight loss recently. Patient states she's had no nausea but has had diarrhea. Bryan zheng states she has mild diffuse abdominal pain no specific area of abdominal pain. Patient denies any nausea or vomiting. Patient denies any fever chills. Patient denies any difficulty breathing today patient denies any chest pain. Patient denies any headache patient denies numbness weakness that is focal. Patient denies any recent injury or trauma. Patient states she's just general weakness the point where she can barely walk around her place. - Related Data Home Medications Medication Instructions Recorded Confirmed Sucralfate [Carafate] 1 gm PO AC-TID 12/27/13 06/18/19 Pramipexole [Mirapex] 0.125 mg PO HS 09/12/14 06/18/19 Tiotropium 18 Mcg/Puff [Spiriva] 1 cap INHALATION RT-BID 09/12/14 06/18/19 DULoxetine HCL [Cymbalta] 60 mg PO BID 07/18/17 06/18/19 Dexlansoprazole [Dexilant] 60 mg PO DAILY 12/12/17 06/18/19 Nitroglycerin Sl Tabs [Nitrostat] 0.4 mg SUBLINGUAL Q5M PRN 12/12/17 06/18/19 guaiFENesin [Mucinex] 1,200 mg PO Q12H 12/12/17 06/18/19 Albuterol Inhaler [Ventolin Hfa 1 - 2 puff INHALATION RT-Q6H PRN 10/08/18 06/18/19 Inhaler] Butalb/APAP/Caff 50-325-40Mg 1 - 2 tab PO Q8H PRN 10/08/18 06/18/19 [Fioricet 50-325-40] Calcium Carbonate/Vitamin D3 1 tab PO BID 10/08/18 06/18/19 [Calcium 600-Vit D3 400 Caplet] Ipratropium-Albuterol Nebulize 3 ml INHALATION RT-QID 10/08/18 06/18/19 [Duoneb 0.5 mg-3 mg/3 ml Soln] Topiramate [Topamax] 50 mg PO BID 10/08/18 06/18/19 cycloSPORINE [Restasis] 1 drop BOTH EYES BID 10/08/18 06/18/19 ALPRAZolam [Xanax] 0.5 mg PO TID PRN 02/14/19 06/18/19 Levothyroxine Sodium [Synthroid] 25 mcg PO DAILY 02/28/19 06/18/19 Multivitamins, Thera [Multivitamin 1 tab PO DAILY 02/28/19 06/18/19 (formulary)] Nebivolol [Bystolic] 5 mg PO BID 02/28/19 06/18/19 Fesoterodine Fumarate [Toviaz] 8 mg PO DAILY 03/03/19 06/18/19 Sennosides-Docusate Sodium 2 tab PO DAILY 06/18/19 06/18/19 [Senokot-S] Previous Rx's Medication Instructions Recorded Aspirin 81 mg PO DAILY chew 09/02/17 Pravastatin Sodium [Pravachol] 80 mg PO HS #0 tab 09/02/17 Apixaban [Eliquis] 2.5 mg PO BID #60 tablet 03/02/19 Dicyclomine [Bentyl] 20 mg PO QID PRN tab 03/02/19 Famotidine [Pepcid] 20 mg PO DAILY #30 tab 03/03/19 Polyethylene Glycol 3350 [Miralax] 17 gm PO DAILY #30 packet 03/03/19 amLODIPine [Norvasc] 5 mg PO DAILY #30 tab 03/03/19 Allergies Allergy/AdvReac Type Severity Reaction Status Date / Time naproxen sodium [From Aleve] Allergy Severe Anaphylaxis Verified 06/18/19 14:01 adhesive Allergy Rash/Hives Verified 06/18/19 14:01 cinnamon [Cinnamon] Allergy Dyspnea Verified 06/18/19 14:01 clindamycin Allergy Anaphylaxis Verified 06/18/19 14:01 codeine Allergy Nausea & Verified 06/18/19 14:01 Vomiting gentamicin [Gentamicin] Allergy SWELLING Verified 06/18/19 14:01 OF FACE W/ EYE DROPS paola Allergy Dyspnea Verified 06/18/19 14:01 Iodinated Contrast Media Allergy Dyspnea Verified 06/18/19 14:01 [Iodinated Contrast- Oral and IV Dye] latex Allergy Rash/Hives Verified 06/18/19 14:01 levothyroxine sodium Allergy Unknown Verified 06/18/19 14:01 [From Synthroid] losartan Allergy Unknown Verified 06/18/19 14:01 montelukast sodium Allergy Wheezing Verified 06/18/19 14:01 [From Singulair] pantoprazole sodium Allergy Abdominal Verified 06/18/19 14:01 [From Protonix] Pain Penicillins Allergy Rash/Hives Verified 06/18/19 14:01 red dye Allergy Abdominal Verified 06/18/19 14:01 Pain Sulfa (Sulfonamide Allergy Swelling Verified 06/18/19 14:01 Antibiotics) IN MOUTH sulfamethoxazole Allergy swelling Verified 06/18/19 14:01 [From Bactrim] tongue sulfanilamide Allergy Unknown Verified 06/18/19 14:01 trimethoprim [From Bactrim] Allergy Swelling Verified 06/18/19 14:01 venom-honey bee Allergy Dyspnea Verified 06/18/19 14:01 [bee venom (honey bee)] BANDAIDS Allergy Rash/Hives Uncoded 06/18/19 13:19 Dye for gallbladder scan. Allergy Anaphylaxis Uncoded 06/18/19 13:19 tomatoes AdvReac Abdominal Uncoded 06/18/19 13:19 Pain Review of Systems ROS Statement: Those systems with pertinent positive or pertinent negative responses have been documented in the HPI. ROS Other: All systems not noted in ROS Statement are negative. Past Medical History Past Medical History: Atrial Fibrillation, Asthma, Coronary Artery Disease (CAD), Chest Pain / Angina, COPD, Deep Vein Thrombosis (DVT), GERD/Reflux, GI Bleed, Hypertension, Liver Disease, Memory Impairment, Myocardial Infarction (MT), Pneumonia, Respiratory Disorder, Sleep Apnea/CPAP/BIPAP, Vascular Disorder Additional Past Medical History / Comment(s): on 10/25/18 pt states was having pizza with family and food got stuck, pt had small amount of emesis. She went to bed and woke up to discover that she was incontinent of stool while she slept. Pt states that this has never happened. aLSO STATES THAT IT IS GETTING HARDER TO SWALLOW. HEP C. Aortic aneurysm with stent-being monitored, Takosubu syndrome in 2016, R groin dissection/cardiac cath, recent bacteremia-blood cultures positive for veridans strep-completed antibiotics, bronchitis, home O2 at 3L/NC most of the time, LG without device-stable, DVT R leg, lower GI bleed, hepatitis C with Harvoni treatment, anemia with iron infusions x2, bilateral femoral head avascular necrosis, RLS, migraines, insomnia, constipation, overactive bladder, post menopausal bleed. Last Myocardial Infarction Date:: 07/2017 History of Any Multi-Drug Resistant Organisms: None Reported Past Surgical History: Bladder Surgery, Cholecystectomy, Heart Catheterization With Stent, Hysterectomy, Orthopedic Surgery Additional Past Surgical History / Comment(s): 11/28/17 lap albert, PCI with stent 2010, cardiac cath 07/2017-treat medically, common iliac artery stent 2005, exploratory lap, liver bx, R foot surgery d/t infection, R shoulder arthroscopic surgery, CAN, EGD, colonoscopy years ago, R leg varicose vein surgery, bladder suspension, eric cataract sx Past Anesthesia/Blood Transfusion Reactions: No Reported Reaction Date of Last Stent Placement:: 2010 Past Psychological History: Anxiety, Depression, Panic Disorder Smoking Status: Current every day smoker - Past Family History Brother(s) Family Medical History: Coronary Artery Disease (CAD), Myocardial Infarction (MT) Father Additional Family Medical History / Comment(s): FROM CIRRHOSIS OF THE LIVER Mother Family Medical History: COPD Additional Family Medical History / Comment(s): FROM AAA, HAD HX of TB. General Exam - General Exam Comments Initial Comments: GENERAL: Patient is extremely cachectic. Patient is nontoxic and well-hydrated and is in mild distress. ENT: Neck is soft and supple. No significant lymphadenopathy is noted. Oropharynx is clear. Moist mucous membranes. Neck has full range of motion without e liciting any pain. EYES: The sclera were anicteric and conjunctiva were pink and moist. Extraocular movements were intact and pupils were equal round and reactive to light. Eyelids were unremarkable. PULMONARY: Unlabored respirations. Good breath sounds bilaterally. No audible rales rhonchi or wheezing was noted. CARDIOVASCULAR: There is a regular rate and rhythm without any murmurs gallops or rubs. ABDOMEN: Mild diffuse tenderness. SKIN: Skin is clear with no lesions or rashes and otherwise unremarkable. NEUROLOGIC: Patient is alert and oriented x3. Cranial nerves II through XII are grossly intact. Motor and sensory are also intact. Normal speech, volume and content. Symmetrical smile. MUSCULOSKELETAL: Normal extremities with adequate strength and full range of motion. No lower extremity swelling or edema. No calf tenderness. LYMPHATICS: No significant lymphadenopathy is noted PSYCHIATRIC: Normal psychiatric evaluation. Limitations: no limitations Course Vital Signs 06/18/19 06/18/19 06/18/19 13:14 13:16 14:00 Temperature 97.1 F L Pulse Rate 85 90 Respiratory 16 18 Rate Blood Pressure 146/97 168/95 O2 Sat by Pulse 98 98 98 Oximetry 06/18/19 06/18/19 15:00 16:00 Temperature Pulse Rate 85 86 Respiratory 22 20 Rate Blood Pressure O2 Sat by Pulse 97 Oximetry Medical Decision Making - Medical Decision Making EKG shows normal sinus rhythm at 85 bpm AR interval 254 QRS is 102 QT interval is 416 QTC is 495. Patient's EKG shows no ST segment elevation or depression. patient did have some air fluid levels in the bladder. I told this to Dr. Bailey andatthis time unable to get any urineto check for urinary tract infection. I will be consulting surgery to further evaluate this. - Lab Data Result diagrams: 06/18/19 13:30 06/18/19 13:30 Lab Results 06/18/19 06/18/19 06/18/19 Range/Units 13:30 13:30 13:30 WBC 10.1 (3.8-10.6) k/uL RBC 4.82 (3.80-5.40) m/uL Hgb 14.9 D (11.4-16.0) gm/dL Hct 44.8 (34.0-46.0) % MCV 93.0 (80.0-100.0) fL MCH 30.8 (25.0-35.0) pg MCHC 33.1 (31.0-37.0) g/dL RDW 14.3 (11.5-15.5) % Plt Count 270 (150-450) k/uL Neutrophils % 70 % Lymphocytes % 22 % Monocytes % 4 % Eosinophils % 2 % Basophils % 1 % Neutrophils # 7.1 (1.3-7.7) k/uL Lymphocytes # 2.3 (1.0-4.8) k/uL Monocytes # 0.4 (0-1.0) k/uL Eosinophils # 0.2 (0-0.7) k/uL Basophils # 0.1 (0-0.2) k/uL PT 10.0 (9.0-12.0) sec INR 0.9 (<1.2) APTT 25.4 (22.0-30.0) sec Sodium 138 (137-145) mmol/L Potassium 3.5 (3.5-5.1) mmol/L Chloride 107 (98-107) mmol/L Carbon Dioxide 21 L (22-30) mmol/L Anion Gap 10 mmol/L BUN 25 H (7-17) mg/dL Creatinine 1.95 H (0.52-1.04) mg/dL Est GFR (CKD-EPI)AfAm 29 (>60 ml/min/1.73 sqM) Est GFR (CKD-EPI)NonAf 25 (>60 ml/min/1.73 sqM) Glucose 126 H (74-99) mg/dL Plasma Lactic Acid Aquilino (0.7-2.0) mmol/L Calcium 9.4 (8.4-10.2) mg/dL Magnesium 2.1 (1.6-2.3) mg/dL Total Bilirubin 0.6 (0.2-1.3) mg/dL AST 33 (14-36) U/L ALT 20 (9-52) U/L Alkaline Phosphatase 107 (38-126) U/L Troponin I (0.000-0.034) ng/mL Total Protein 7.0 (6.3-8.2) g/dL Albumin 4.0 (3.5-5.0) g/dL Amylase 53 (30-110) U/L Lipase 39 (23-300) U/L 06/18/19 06/18/19 Range/Units 13:30 14:17 WBC (3.8-10.6) k/uL RBC (3.80-5.40) m/uL Hgb (11.4-16.0) gm/dL Hct (34.0-46.0) % MCV (80.0-100.0) fL MCH (25.0-35.0) pg MCHC (31.0-37.0) g/dL RDW (11.5-15.5) % Plt Count (150-450) k/uL Neutrophils % % Lymphocytes % % Monocytes % % Eosinophils % % Basophils % % Neutrophils # (1.3-7.7) k/uL Lymphocytes # (1.0-4.8) k/uL Monocytes # (0-1.0) k/uL Eosinophils # (0-0.7) k/uL Basophils # (0-0.2) k/uL PT (9.0-12.0) sec INR (<1.2) APTT (22.0-30.0) sec Sodium (137-145) mmol/L Potassium (3.5-5.1) mmol/L Chloride (98-107) mmol/L Carbon Dioxide (22-30) mmol/L Anion Gap mmol/L BUN (7-17) mg/dL Creatinine (0.52-1.04) mg/dL Est GFR (CKD-EPI)AfAm (>60 ml/min/1.73 sqM) Est GFR (CKD-EPI)NonAf (>60 ml/min/1.73 sqM) Glucose (74-99) mg/dL Plasma Lactic Acid Aquilino 2.0 (0.7-2.0) mmol/L Calcium (8.4-10.2) mg/dL Magnesium (1.6-2.3) mg/dL Total Bilirubin (0.2-1.3) mg/dL AST (14-36) U/L ALT (9-52) U/L Alkaline Phosphatase (38-126) U/L Troponin I 0.037 H* (0.000-0.034) ng/mL Total Protein (6.3-8.2) g/dL Albumin (3.5-5.0) g/dL Amylase (30-110) U/L Lipase (23-300) U/L Disposition Clinical Impression: Generalized weakness, Elevated troponin, Cachectic, Acute renal failure, Weight loss, Colovesical fistula Disposition: ADMITTED IP TO THIS HOSP Referrals: Jenaro Colbert DO [Primary Care Provider] - 1-2 days Time of Disposition: 17:00
[2019-06-18 14:40] LABS: Calcium 9.4 mg/dL (8.4-10.2); Magnesium 2.1 mg/dL (1.6-2.3); Potassium 3.5 mmol/L (3.5-5.1); Total Bilirubin 0.6 mg/dL (0.2-1.3)
[2019-06-18 14:43] LABS: Basophils # (A) 0.1 k/uL (0-0.2); Basophils % (A) 1 %; Eosinophils # (A) 0.2 k/uL (0-0.7); Eosinophils % (A) 2 %; HCT 44.8 % (34.0-46.0); Lymphocytes # (A) 2.3 k/uL (1.0-4.8); Lymphocytes % (A) 22 %; MCH 30.8 pg (25.0-35.0); MCHC 33.1 g/dL (31.0-37.0); Mean Platelet Volume 7.5; Monocytes # (A) 0.4 k/uL (0-1.0); Monocytes % (A) 4 %; Neutrophils # (A) 7.1 k/uL (1.3-7.7); Neutrophils % (A) 70 %; Platelet Count 270 k/uL (150-450); RBC 4.82 m/uL (3.80-5.40); RDW 14.3 % (11.5-15.5); WBC 10.1 k/uL (3.8-10.6)
[2019-06-18 14:46] LABS: HGB 14.9 gm/dL (11.4-16.0)
[2019-06-18 14:47] LABS: INR 0.9 (<1.2); Partial Thromboplastin Time 25.4 sec (22.0-30.0)
--- NOTE | 2019-06-18 15:11 | XR ---
EXAMINATION TYPE: XR chest 2V DATE OF EXAM: 06/18/2019 COMPARISON: 02/28/2019 INDICATION: Weakness TECHNIQUE: Frontal and lateral views of the chest are obtained. FINDINGS: The heart size is normal. The pulmonary vasculature is normal. The lungs are clear. Hyperinflation with increased AP diameter compatible COPD. IMPRESSION: 1. COPD. 2. No acute pulmonary process.
--- NOTE | 2019-06-18 16:45 | CT ---
EXAMINATION TYPE: CT abdomen pelvis wo con DATE OF EXAM: 06/18/2019 COMPARISON: 05/02/2019 INDICATION: ABDOMINAL PAIN DLP: 209.9 mGycm, Automated exposure control for dose reduction was used. CONTRAST: 0 mL of Isovue 300. Study performed without Oral Contrast TECHNIQUE: Axial images were obtained from above the diaphragm to the pubic rami in the axial plane a t 5 mm thick sections. Reconstructed images are reviewed on the computer in the coronal plane. FINDINGS: Very little abdominal fat is present. The patient appears cachectic. Small amounts of air w hich are present appear to lie within loops of bowel. There is a large air-fluid level which appears to be within the urinary bladder. No catheter is identified. Consider possible colovesical fistula. Limited CT sections are obtained the lung bases. The lung bases are clear. Emphysematous changes ar e evident. CT ABDOMEN: Liver: Normal Spleen: Normal Pancreas: Normal Adrenal glands: Left adrenal gland is visualized is normal. Right adrenal gland may not be clearly id entified. Gallbladder: Normal Kidneys: No masses are evident. No hydronephrosis is present. No cysts are present. Aorta: Vascular calcification is within the aorta. Stent is within the abdominal aorta. Inferior vena cava: Normal. CT PELVIS: Loops of bowel within the abdomen and pelvis are normal. No oral contrast is utilized. Appendix: Normal as visualized. Urinary bladder: Large air-fluid levels present. Genitourinary structures: Uterus is not clearly identified. Osseous structures: No suspicious lytic or sclerotic lesions. IMPRESSIONS: 1. Air-fluid level within the urinary bladder. Correlate for a colovesical fistula. 2. Exam is limited due to the cachectic appearance. 3. Aortic aneurysm stent repair evident. This cannot be well evaluated without intravenous contrast.
[2019-06-18] MEDS ORDERED: NITROGLYCERIN SL TABS 0.4 MG TAB SUBLINGUAL PRN ×2 (17:01→18:28)
[2019-06-18] MEDS ORDERED: cefTRIAXone IN SWFI 1,000 MG/10 ML SYRINGE IVP STA (17:14)
[2019-06-18] MEDS ORDERED: SODIUM CHLORIDE 0.9% 1,000 ML IV SCH (17:15)
[2019-06-18] MEDS ORDERED: DICYCLOMINE 20 MG TAB PO PRN (18:28)
[2019-06-18] MEDS ORDERED: ALBUTEROL NEBULIZED 2.5 MG/3 ML INHALATION PRN (18:28)
[2019-06-18] MEDS ORDERED: BUTALB/APAP/CAFF 50-325-40MG TAB PO PRN (18:28)
[2019-06-18] MEDS: amLODIPine 5 MG TAB PO SCH (19:22)
[2019-06-18] MEDS: ACETAMINOPHEN TAB 325 MG TAB PO PRN (19:22)
[2019-06-18] MEDS: SODIUM CHLORIDE 0.9% 1,000 ML IV SCH (19:45)
[2019-06-18] MEDS: MORPHINE SULFATE 2 MG/ML SYRINGE IVP PRN (20:04)
[2019-06-18] MEDS: CALCIUM CARB-VIT D 500MG-200UN 1 EACH TAB PO SCH (20:05)
[2019-06-18] MEDS: NEBIVOLOL 5 MG TAB PO SCH (20:05)
[2019-06-18] MEDS: DULoxetine HCL 60 MG CAPSULE.DR PO SCH (20:05)
[2019-06-18] MEDS: cycloSPORINE 0.05% OPHTH 0.4 ML DROPERETTE BOTH EYES SCH (20:05)
[2019-06-18] MEDS: APIXABAN 2.5 MG TABLET PO SCH (20:05)
[2019-06-18] MEDS: PRAMIPEXOLE 0.125 MG TAB PO SCH (20:05)
[2019-06-18] MEDS: IPRATROPIUM-ALBUTEROL 3 ML NEB INHALATION SCH (20:43)
[2019-06-18] MEDS ORDERED: PRAVASTATIN SODIUM 80 MG TAB PO SCH (21:00)
[2019-06-18 21:45] LABS: Appearance,Urine Clear (Clear); Bacteria,Urine Occasional /hpf; Bilirubin,Urine Negative (Negative); Blood,Urine Small (Negative); Color,Urine Light Yellow; Glucose,Urine (UA) Negative (Negative); Ketones,Urine Trace (Negative); Leukocyte Esterase,Urine Negative (Negative); Mucus,Urine Rare /hpf; Nitrite,Urine Negative (Negative); PH, Urine 6.5 (5.0-8.0); Protein,Urine 2+ (Negative); RBC,Urine 4 /hpf (0-5); Specific Gravity,Urine 1.008 (1.001-1.035); Squamous Epithelial Cell,Urine 1 /hpf (0-4); Urobilinogen,Urine <2.0 mg/dL (<2.0); WBC,Urine 8 /hpf (0-5)
[2019-06-19] MEDS: MORPHINE SULFATE 2 MG/ML SYRINGE IVP PRN ×4 (01:48→23:00)
[2019-06-19] MEDS: LEVOTHYROXINE 25 MCG TAB PO SCH (06:17)
[2019-06-19 06:25] LABS: Basophils # (A) 0.1 k/uL (0-0.2); Basophils % (A) 0 %; Eosinophils # (A) 0.1 k/uL (0-0.7); Eosinophils % (A) 1 %; HCT 39.5 % (34.0-46.0); Lymphocytes # (A) 1.8 k/uL (1.0-4.8); Lymphocytes % (A) 13 %; MCH 30.8 pg (25.0-35.0); MCV 93.2 fL (80.0-100.0); Mean Platelet Volume 7.2; Monocytes # (A) 0.6 k/uL (0-1.0); Monocytes % (A) 5 %; Neutrophils % (A) 79 %; Platelet Count 260 k/uL (150-450); RBC 4.24 m/uL (3.80-5.40); RDW 14.3 % (11.5-15.5); WBC 13.8 k/uL (3.8-10.6)
[2019-06-19 06:35] LABS: Albumin 3.5 g/dL (3.5-5.0); Calcium 8.8 mg/dL (8.4-10.2); Total Bilirubin 0.6 mg/dL (0.2-1.3); Total Protein 6.3 g/dL (6.3-8.2)
[2019-06-19] MEDS ORDERED: Potassium Replacement Protocol 1 EACH MISC MISCELLANE PRN (07:02)
[2019-06-19] MEDS ORDERED: POTASSIUM CHLORIDE ER 20 MEQ TAB.ER PO STA (07:03)
[2019-06-19] MEDS: CALCIUM CARB-VIT D 500MG-200UN 1 EACH TAB PO SCH ×2 (08:14→20:35)
[2019-06-19] MEDS: MULTIVITAMINS, THERA 1 EACH TAB PO SCH (08:14)
[2019-06-19] MEDS: amLODIPine 5 MG TAB PO SCH (08:14)
[2019-06-19] MEDS: NEBIVOLOL 5 MG TAB PO SCH ×2 (08:14→20:35)
[2019-06-19] MEDS: DULoxetine HCL 60 MG CAPSULE.DR PO SCH ×2 (08:14→20:35)
[2019-06-19] MEDS: ASPIRIN 81 MG PO SCH (08:14)
[2019-06-19] MEDS: FAMOTIDINE 20 MG TAB PO SCH (08:14)
[2019-06-19] MEDS: cycloSPORINE 0.05% OPHTH 0.4 ML DROPERETTE BOTH EYES SCH ×2 (08:14→20:35)
[2019-06-19] MEDS: APIXABAN 2.5 MG TABLET PO SCH ×2 (08:14→20:35)
[2019-06-19] MEDS: POLYETHYLENE GLYCOL 3350 17 GM POWD.PACK PO SCH (08:15)
[2019-06-19] MEDS: SODIUM CHLORIDE 0.9% 1,000 ML IV SCH ×2 (08:15→21:50)
[2019-06-19] MEDS: IPRATROPIUM-ALBUTEROL 3 ML NEB INHALATION SCH ×4 (08:52→20:41)
[2019-06-19] MEDS ORDERED: ASPIRIN 325 MG TAB PO SCH (09:00)
[2019-06-19] MEDS ORDERED: SENNOSIDES-DOCUSATE SODIUM 1 EACH TAB PO SCH (09:00)
[2019-06-19] MEDS ORDERED: DIPHENOX-ATROP 2.5-0.025 MG 1 EACH TAB PO PRN (09:24)
[2019-06-19 10:03] LABS: C Reactive Protein 21.9 mg/L (<10.0)
--- NOTE | 2019-06-19 10:13 | P.GSCN ---
History of Present Illness Consult date: 06/19/19 History of present illness: 69-year-old female presents to the emergency department with complaints of abdominal pain. She is noted to have multiple medical comorbidities. Physically, she is cachectic. She states that she has had abdominal pain that has been increasing in severity over the past few days. She has had multiple hospital admissions over the past year. Her last colonoscopy was noted to be in October of this year. There was poor colonic prep at that time, however the colon was visualized up to the transverse colon. There were no significant abnorma lities noted at that time. On workup during this admission, the patient was noted to have a CT of the abdomen and pelvis that did show an air-fluid level in the bladder. She denies any recent instrumentation or catheter placement. She denies any changes in urination or followed her with urination. She denies passing air while urinating. She denies any fevers, chills, chest pain or shortness of breath at this time. Review of Systems All systems: negative Past Medical History Past Medical History: Atrial Fibrillation, Asthma, Coronary Artery Disease (CAD), Chest Pain / Angina, COPD, Deep Vein Thrombosis (DVT), GERD/Reflux, GI Bleed, Hypertension, Liver Disease, Memory Impairment, Myocardial Infarction (NH), Pneumonia, Respiratory Disorder, Sleep Apnea/CPAP/BIPAP, Vascular Disorder Additional Past Medical History / Comment(s): on 10/25/18 pt states was having pizza with family and food got stuck, pt had small amount of emesis. She went to bed and woke up to discover that she was incontinent of stool while she slept. Pt states that this has never happened.Patient continues to have difficulty swallowing like before. HEP C. Aortic aneurysm with stent-being monitored, Takosubu syndrome in 2016, R groin dissection/cardiac cath, recent bacteremia- blood cultures positive for veridans strep-completed antibiotics, bronchitis, home O2 at 3L/NC most of the time, LG without device-stable, DVT R leg, lower GI bleed, hepatitis C with Harvoni treatment, anemia with iron infusions x2, bilateral femoral head avascular necrosis, RLS, migraines, insomnia, constipation, overactive bladder, post menopausal bleed. Last Myocardial Infarction Date:: 07/2017 History of Any Multi-Drug Resistant Organisms: None Reported Past Surgical History: Bladder Surgery, Cholecystectomy, Heart Catheterization With Stent, Hysterectomy, Orthopedic Surgery Additional Past Surgical History / Comment(s): 11/28/17 lap albert, PCI with stent 2010, cardiac cath 07/2017-treat medically, common iliac artery stent 2005, exploratory lap, liver bx, R foot surgery d/t infection, R shoulder arthroscopic surgery, CAN, EGD, colonoscopy years ago, R leg varicose vein surgery, bladder suspension, eric cataract sx Past Anesthesia/Blood Transfusion Reactions: No Reported Reaction Date of Last Stent Placement:: 2010 Past Psychological History: Anxiety, Depression, Panic Disorder Additional Psychological History / Comment(s): PT RESIDES WITH HER SPOUSE WHO IS IN HIS 80'S AND IS NOT WELL. PT USES a walker. SHE NO LONGER DRIVES, FAMILY TAKES THEM TO THEIR APPTS. THEY HAVE VNA. pt stated has home 02 3 liters n/c, has cane/walker/wheel chair if needed. Smoking Status: Current every day smoker Past Alcohol Use History: None Reported Additional Past Alcohol Use History / Comment(s): She was a smoker starting in 1956. Patient states now she smokes e-cigarettes. Past Drug Use History: None Reported - Past Family History Brother(s) Family Medical History: Coronary Artery Disease (CAD), Myocardial Infarction (NH) Father Additional Family Medical History / Comment(s): FROM CIRRHOSIS OF THE LIVER Mother Family Medical History: COPD Additional Family Medical History / Comment(s): FROM AAA, HAD HX of TB. Medications and Allergies Home Medications Medication Instructions Recorded Confirmed Type Sucralfate [Carafate] 1 gm PO AC-TID 12/27/13 06/18/19 History Pramipexole [Mirapex] 0.125 mg PO HS 09/12/14 06/18/19 History Tiotropium 18 Mcg/Puff [Spiriva] 1 cap INHALATION RT-BID 09/12/14 06/18/19 History DULoxetine HCL [Cymbalta] 60 mg PO BID 07/18/17 06/18/19 History Aspirin 81 mg PO DAILY chew 09/02/17 06/18/19 Rx Pravastatin Sodium [Pravachol] 80 mg PO HS #0 tab 09/02/17 06/18/19 Rx Dexlansoprazole [Dexilant] 60 mg PO DAILY 12/12/17 06/18/19 History Nitroglycerin Sl Tabs [Nitrostat] 0.4 mg SUBLINGUAL Q5M PRN 12/12/17 06/18/19 History guaiFENesin [Mucinex] 1,200 mg PO Q12H 12/12/17 06/18/19 History Albuterol Inhaler [Ventolin Hfa 1 - 2 puff INHALATION RT-Q6H PRN 10/08/18 06/18/19 History Inhaler] Butalb/APAP/Caff 50-325-40Mg 1 - 2 tab PO Q8H PRN 10/08/18 06/18/19 History [Fioricet 50-325-40] Calcium Carbonate/Vitamin D3 1 tab PO BID 10/08/18 06/18/19 History [Calcium 600-Vit D3 400 Caplet] Ipratropium-Albuterol Nebulize 3 ml INHALATION RT-QID 10/08/18 06/18/19 History [Duoneb 0.5 mg-3 mg/3 ml Soln] Topiramate [Topamax] 50 mg PO BID 10/08/18 06/18/19 History cycloSPORINE [Restasis] 1 drop BOTH EYES BID 10/08/18 06/18/19 History ALPRAZolam [Xanax] 0.5 mg PO TID PRN 02/14/19 06/18/19 History Levothyroxine Sodium [Synthroid] 25 mcg PO DAILY 02/28/19 06/18/19 History Multivitamins, Thera [Multivitamin 1 tab PO DAILY 02/28/19 06/18/19 History (formulary)] Nebivolol [Bystolic] 5 mg PO BID 02/28/19 06/18/19 History Apixaban [Eliquis] 2.5 mg PO BID #60 tablet 03/02/19 06/18/19 Rx Dicyclomine [Bentyl] 20 mg PO QID PRN tab 03/02/19 06/18/19 Rx Famotidine [Pepcid] 20 mg PO DAILY #30 tab 03/03/19 06/18/19 Rx Fesoterodine Fumarate [Toviaz] 8 mg PO DAILY 03/03/19 06/18/19 History Polyethylene Glycol 3350 [Miralax] 17 gm PO DAILY #30 packet 03/03/19 06/18/19 Rx amLODIPine [Norvasc] 5 mg PO DAILY #30 tab 03/03/19 06/18/19 Rx Sennosides-Docusate Sodium 2 tab PO DAILY 06/18/19 06/18/19 History [Senokot-S] Allergies Allergy/AdvReac Type Severity Reaction Status Date / Time naproxen sodium [From Aleve] Allergy Severe Anaphylaxis Verified 06/18/19 14:01 adhesive Allergy Rash/Hives Verified 06/18/19 14:01 cinnamon [Cinnamon] Allergy Dyspnea Verified 06/18/19 14:01 clindamycin Allergy Anaphylaxis Verified 06/18/19 14:01 codeine Allergy Nausea & Verified 06/18/19 14:01 Vomiting gentamicin [Gentamicin] Allergy SWELLING Verified 06/18/19 14:01 OF FACE W/ EYE DROPS paola Allergy Dyspnea Verified 06/18/19 14:01 Iodinated Contrast Media Allergy Dyspnea Verified 06/18/19 14:01 [Iodinated Contrast- Oral and IV Dye] latex Allergy Rash/Hives Verified 06/18/19 14:01 levothyroxine sodium Allergy Unknown Verified 06/18/19 14:01 [From Synthroid] losartan Allergy Unknown Verified 06/18/19 14:01 montelukast sodium Allergy Wheezing Verified 06/18/19 14:01 [From Singulair] pantoprazole sodium Allergy Abdominal Verified 06/18/19 14:01 [From Protonix] Pain Penicillins Allergy Rash/Hives Verified 06/18/19 14:01 red dye Allergy Abdominal Verified 06/18/19 14:01 Pain Sulfa (Sulfonamide Allergy Swelling Verified 06/18/19 14:01 Antibiotics) IN MOUTH sulfamethoxazole Allergy swelling Verified 06/18/19 14:01 [From Bactrim] tongue sulfanilamide Allergy Unknown Verified 06/18/19 14:01 trimethoprim [From Bactrim] Allergy Swelling Verified 06/18/19 14:01 venom-honey bee Allergy Dyspnea Verified 06/18/19 14:01 [bee venom (honey bee)] BANDAIDS Allergy Rash/Hives Uncoded 06/18/19 13:19 Dye for gallbladder scan. Allergy Anaphylaxis Uncoded 06/18/19 13:19 tomatoes AdvReac Abdominal Uncoded 06/18/19 13:19 Pain Surgical - Exam Osteopathic Statement: *. No significant issues noted on an osteopathic structural exam other than those noted in the History and Physical/Consult. Vital Signs Pulse Ox 98 06/18/19 13:14 - General cachectic - Eyes PERRL - Neck trachea midline - Respiratory No difficulty with respiration - Abdomen Soft, generalized pain to palpation, no rebound, no guarding Results - Labs 06/19/19 05:48 06/19/19 05:48 Abnormal Lab Results - Last 24 Hours (Table) 06/18/19 06/18/19 06/18/19 Range/Units 13:30 13:30 19:10 WBC (3.8-10.6) k/uL Neutrophils # (1.3-7.7) k/uL Potassium (3.5-5.1) mmol/L Chloride (98-107) mmol/L Carbon Dioxide 21 L (22-30) mmol/L BUN 25 H (7-17) mg/dL Creatinine 1.95 H (0.52-1.04) mg/dL Glucose 126 H (74-99) mg/dL Troponin I 0.037 H* 0.039 H* (0.000-0.034) ng/mL C-Reactive Protein (<10.0) mg/L Cholesterol (<200) mg/dL LDL Cholesterol, Calc (0-99) mg/dL Urine Protein (Negative) Urine Ketones (Negative) Urine Blood (Negative) Urine WBC (0-5) /hpf Urine Bacteria (None) /hpf Urine Mucus (None) /hpf 06/18/19 06/19/19 06/19/19 Range/Units 21:30 01:33 05:48 WBC (3.8-10.6) k/uL Neutrophils # (1.3-7.7) k/uL Potassium 3.0 L (3.5-5.1) mmol/L Chloride 111 H (98-107) mmol/L Carbon Dioxide 17 L (22-30) mmol/L BUN 26 H (7-17) mg/dL Creatinine 1.86 H (0.52-1.04) mg/dL Glucose 112 H (74-99) mg/dL Troponin I 0.046 H* (0.000-0.034) ng/mL C-Reactive Protein (<10.0) mg/L Cholesterol 236 H (<200) mg/dL LDL Cholesterol, Calc 161 H (0-99) mg/dL Urine Protein 2+ H (Negative) Urine Ketones Trace H (Negative) Urine Blood Small H (Negative) Urine WBC 8 H (0-5) /hpf Urine Bacteria Occasional H (None) /hpf Urine Mucus Rare H (None) /hpf 06/19/19 06/19/19 Range/Units 05:48 05:48 WBC 13.8 H (3.8-10.6) k/uL Neutrophils # 11.0 H (1.3-7.7) k/uL Potassium (3.5-5.1) mmol/L Chloride (98-107) mmol/L Carbon Dioxide (22-30) mmol/L BUN (7-17) mg/dL Creatinine (0.52-1.04) mg/dL Glucose (74-99) mg/dL Troponin I (0.000-0.034) ng/mL C-Reactive Protein 21.9 H (<10.0) mg/L Cholesterol (<200) mg/dL LDL Cholesterol, Calc (0-99) mg/dL Urine Protein (Negative) Urine Ketones (Negative) Urine Blood (Negative) Urine WBC (0-5) /hpf Urine Bacteria (None) /hpf Urine Mucus (None) /hpf Diabetes panel 06/18/19 06/19/19 Range/Units 13:30 05:48 Sodium 138 142 (137-145) mmol/L Potassium 3.5 3.0 L (3.5-5.1) mmol/L Chloride 107 111 H (98-107) mmol/L Carbon Dioxide 21 L 17 L (22-30) mmol/L BUN 25 H 26 H (7-17) mg/dL Creatinine 1.95 H 1.86 H (0.52-1.04) mg/dL Glucose 126 H 112 H (74-99) mg/dL Calcium 9.4 8.8 (8.4-10.2) mg/dL AST 33 32 (14-36) U/L ALT 20 17 (9-52) U/L Alkaline Phosphatase 107 95 (38-126) U/L Total Protein 7.0 6.3 (6.3-8.2) g/dL Albumin 4.0 3.5 (3.5-5.0) g/dL Triglycerides 137 (<150) mg/dL HDL Cholesterol 48 (40-60) mg/dL Calcium panel 06/18/19 06/19/19 Range/Units 13:30 05:48 Calcium 9.4 8.8 (8.4-10.2) mg/dL Albumin 4.0 3.5 (3.5-5.0) g/dL Pituitary panel 06/18/19 06/19/19 Range/Units 13:30 05:48 Sodium 138 142 (137-145) mmol/L Potassium 3.5 3.0 L (3.5-5.1) mmol/L Chloride 107 111 H (98-107) mmol/L Carbon Dioxide 21 L 17 L (22-30) mmol/L BUN 25 H 26 H (7-17) mg/dL Creatinine 1.95 H 1.86 H (0.52-1.04) mg/dL Glucose 126 H 112 H (74-99) mg/dL Calcium 9.4 8.8 (8.4-10.2) mg/dL Adrenal panel 06/18/19 06/19/19 Range/Units 13:30 05:48 Sodium 138 142 (137-145) mmol/L Potassium 3.5 3.0 L (3.5-5.1) mmol/L Chloride 107 111 H (98-107) mmol/L Carbon Dioxide 21 L 17 L (22-30) mmol/L BUN 25 H 26 H (7-17) mg/dL Creatinine 1.95 H 1.86 H (0.52-1.04) mg/dL Glucose 126 H 112 H (74-99) mg/dL Calcium 9.4 8.8 (8.4-10.2) mg/dL Total Bilirubin 0.6 0.6 (0.2-1.3) mg/dL AST 33 32 (14-36) U/L ALT 20 17 (9-52) U/L Alkaline Phosphatase 107 95 (38-126) U/L Total Protein 7.0 6.3 (6.3-8.2) g/dL Albumin 4.0 3.5 (3.5-5.0) g/dL Assessment and Plan (1) Abdominal pain Narrative/Plan: 69-year-old female with abdominal pain and air-fluid level in urinary bladder - The patient does not appear to have any urinary symptoms associated with colovesical fistula. Colonoscopy was performed within the last year. We will evaluate urology recommendations on any possible procedural intervention. - I did discuss this case with the admitting service. The patient is known to have vascular disease. She is noted to have an aortoiliac stent. Due to her elevated creatinine, we are unable to evaluate mesenteric vessels for any mesenteric ischemia with angiography. We will continue to hydrate. Currently, she is not showing any signs of ischemic bowel. - Overall, patient is significantly cachectic with a BMI of 12. Any emergent surgical procedure would likely have a poor prognosis. - We will continue to follow and make recommendations based on the patient's clinical progress. Current Visit: No Status: Acute Code(s): R10.9 - UNSPECIFIED ABDOMINAL PAIN SNOMED Code(s): 16863993
[2019-06-19] MEDS: VANCOMYCIN ORAL SOLUTION 250 MG/5 ML BOTTLE PO SCH ×3 (12:05→23:01)
--- NOTE | 2019-06-19 12:26 | P.HPIM ---
History of Present Illness H&P Date: 06/19/19 Chief Complaint: Generalized weakness, cachectic , weight loss This is a 69-year-old female who presented to the emergency room complaining of generalized weakness. The patient states that the weakness has been ongoing for about a week or 2 and she has progressively gotten worse. She also states that she has had a significant weight loss in the last 5 days. Patient states that every time she eats she feels bloated and has increased abdominal pain. Patient continues to complain of mild diffuse abdominal pain. She denies vomiting however she does feel nauseous. Patient denies fever or chills. Patient does complain of diarrhea. Patient states that her abdominal pain has been going on for a couple months. She was seen by her primary care doctor who prescribed B entyl to help with her appetite and ordered a CT angiogram of the abdomen and pelvis that was done in April. The results of the CT angiogram shows stable thoracic aortic aneurysm, aortoiliac stent graft within the abdomen is patent throughout its course. An attenuated external iliac artery to provide blood flow to the level of the common femoral arteries, extensive ball use emphysmatous change, asymmetric function of the kidneys with atopic right kidney functioning better than the left. Patient had a CT of the abdomen and pelvis without contrast performed 06/18/2019 impression: 1. Air-fluid level within the urinary bladder, correlate for colovesical fistula. 2. Exam is limited due to Static appearance. 3. Aortic aneurysm stent repair evident. Patient denies any dysuria or frequency. Patient has significant history of peripheral vascular disease with a aortic aneurysm repair with stent, coronary artery disease with stent placement 2010, right lower extremity DVT, itch or fibrillation, COPD, acid reflux, GI bleed, hypertension, sleep apnea, hepatitis C, hyperlipidemia, hyperthyroid, restless leg syndrome. Review of Systems Constitutional: Reports anorexia, Reports fatigue, Reports malaise, Reports poor appetite, Reports weight loss Ears, nose, mouth and throat: Reports dysphagia Cardiovascular: Reports dyspnea on exertion, Denies chest pain, Denies irregular heart beat, Denies leg edema, Denies palpitations, Denies rapid heart beat Respiratory: Reports sleep apnea, Denies cough, Denies dyspnea Gastrointestinal: Reports abdominal pain, Reports bloating, Reports diarrhea, Reports early satiety, Reports loss of appetite, Reports nausea, Denies hematemesis, Denies melena, Denies vomiting Genitourinary: Denies dysuria, Denies hematuria, Denies urgency, Denies urinary frequency Musculoskeletal: Denies myalgias Integumentary: Denies pruritus, Denies rash Neurological: Denies numbness, Denies weakness Psychiatric: Denies anxiety, Denies depression Endocrine: Denies fatigue, Denies weight change Past Medical History Past Medical History: Atrial Fibrillation, Asthma, Coronary Artery Disease (CAD), Chest Pain / Angina, COPD, Deep Vein Thrombosis (DVT), GERD/Reflux, GI Bleed, Hypertension, Liver Disease, Memory Impairment, Myocardial Infarction ([place]), Pneumonia, Respiratory Disorder, Sleep Apnea/CPAP/BIPAP, Vascular Disorder Additional Past Medical History / Comment(s): on 10/25/18 pt states was having pizza with family and food got stuck, pt had small amount of emesis. She went to bed and woke up to discover that she was incontinent of stool while she slept. Pt states that this has never happened.Patient continues to have difficulty swallowing like before. HEP C. Aortic aneurysm with stent-being monitored, Takosubu syndrome in 2016, R groin dissection/cardiac cath, recent bacteremia- blood cultures positive for veridans strep-completed antibiotics, bronchitis, home O2 at 3L/NC most of the time, LG without device-stable, DVT R leg, lower GI bleed, hepatitis C with Harvoni treatment, anemia with iron infusions x2, bilateral femoral head avascular necrosis, RLS, migraines, insomnia, cons tipation, overactive bladder, post menopausal bleed. Last Myocardial Infarction Date:: 07/2017 History of Any Multi-Drug Resistant Organisms: None Reported Past Surgical History: Bladder Surgery, Cholecystectomy, Heart Catheterization With Stent, Hysterectomy, Orthopedic Surgery Additional Past Surgical History / Comment(s): 11/28/17 lap albert, PCI with stent 2010, cardiac cath 07/2017-treat medically, common iliac artery stent 2005, exploratory lap, liver bx, R foot surgery d/t infection, R shoulder arthroscopic surgery, CAN, EGD, colonoscopy years ago, R leg varicose vein surgery, bladder suspension, eric cataract sx Past Anesthesia/Blood Transfusion Reactions: No Reported Reaction Date of Last Stent Placement:: 2010 Past Psychological History: Anxiety, Depression, Panic Disorder Additional Psychological History / Comment(s): PT RESIDES WITH HER SPOUSE WHO IS IN HIS 80'S AND IS NOT WELL. PT USES a walker. SHE NO LONGER DRIVES, FAMILY TAKES THEM TO THEIR APPTS. THEY HAVE VNA. pt stated has home 02 3 liters n/c, has cane/walker/wheel chair if needed. Smoking Status: Current every day smoker Past Alcohol Use History: None Reported Additional Past Alcohol Use History / Comment(s): She was a smoker starting in 1956. Patient states now she smokes e-cigarettes. Past Drug Use History: None Reported - Past Family History Brother(s) Family Medical History: Coronary Artery Disease (CAD), Myocardial Infarction ([place]) Father Additional Family Medical History / Comment(s): FROM CIRRHOSIS OF THE LIVER Mother Family Medical History: COPD Additional Family Medical History / Comment(s): FROM AAA, HAD HX of TB. Medications and Allergies Home Medications Medication Instructions Recorded Confirmed Type Sucralfate [Carafate] 1 gm PO AC-TID 12/27/13 06/18/19 History Pramipexole [Mirapex] 0.125 mg PO HS 09/12/14 06/18/19 History Tiotropium 18 Mcg/Puff [Spiriva] 1 cap INHALATION RT-BID 09/12/14 06/18/19 History DULoxetine HCL [Cymbalta] 60 mg PO BID 07/18/17 06/18/19 History Aspirin 81 mg PO DAILY chew 09/02/17 06/18/19 Rx Pravastatin Sodium [Pravachol] 80 mg PO HS #0 tab 09/02/17 06/18/19 Rx Dexlansoprazole [Dexilant] 60 mg PO DAILY 12/12/17 06/18/19 History Nitroglycerin Sl Tabs [Nitrostat] 0.4 mg SUBLINGUAL Q5M PRN 12/12/17 06/18/19 History guaiFENesin [Mucinex] 1,200 mg PO Q12H 12/12/17 06/18/19 History Albuterol Inhaler [Ventolin Hfa 1 - 2 puff INHALATION RT-Q6H PRN 10/08/18 06/18/19 History Inhaler] Butalb/APAP/Caff 50-325-40Mg 1 - 2 tab PO Q8H PRN 10/08/18 06/18/19 History [Fioricet 50-325-40] Calcium Carbonate/Vitamin D3 1 tab PO BID 10/08/18 06/18/19 History [Calcium 600-Vit D3 400 Caplet] Ipratropium-Albuterol Nebulize 3 ml INHALATION RT-QID 10/08/18 06/18/19 History [Duoneb 0.5 mg-3 mg/3 ml Soln] Topiramate [Topamax] 50 mg PO BID 10/08/18 06/18/19 History cycloSPORINE [Restasis] 1 drop BOTH EYES BID 10/08/18 06/18/19 History ALPRAZolam [Xanax] 0.5 mg PO TID PRN 02/14/19 06/18/19 History Levothyroxine Sodium [Synthroid] 25 mcg PO DAILY 02/28/19 06/18/19 History Multivitamins, Thera [Multivitamin 1 tab PO DAILY 02/28/19 06/18/19 History (formulary)] Nebivolol [Bystolic] 5 mg PO BID 02/28/19 06/18/19 History Apixaban [Eliquis] 2.5 mg PO BID #60 tablet 03/02/19 06/18/19 Rx Dicyclomine [Bentyl] 20 mg PO QID PRN tab 03/02/19 06/18/19 Rx Famotidine [Pepcid] 20 mg PO DAILY #30 tab 03/03/19 06/18/19 Rx Fesoterodine Fumarate [Toviaz] 8 mg PO DAILY 03/03/19 06/18/19 History Polyethylene Glycol 3350 [Miralax] 17 gm PO DAILY #30 packet 03/03/19 06/18/19 Rx amLODIPine [Norvasc] 5 mg PO DAILY #30 tab 03/03/19 06/18/19 Rx Sennosides-Docusate Sodium 2 tab PO DAILY 06/18/19 06/18/19 History [Senokot-S] Allergies Allergy/AdvReac Type Severity Reaction Status Date / Time naproxen sodium [From Aleve] Allergy Severe Anaphylaxis Verified 06/18/19 14:01 adhesive Allergy Rash/Hives Verified 06/18/19 14:01 cinnamon [Cinnamon] Allergy Dyspnea Verified 06/18/19 14:01 clindamycin Allergy Anaphylaxis Verified 06/18/19 14:01 codeine Allergy Nausea & Verified 06/18/19 14:01 Vomiting gentamicin [Gentamicin] Allergy SWELLING Verified 06/18/19 14:01 OF FACE W/ EYE DROPS paola Allergy Dyspnea Verified 06/18/19 14:01 Iodinated Contrast Media Allergy Dyspnea Verified 06/18/19 14:01 [Iodinated Contrast- Oral and IV Dye] latex Allergy Rash/Hives Verified 06/18/19 14:01 levothyroxine sodium Allergy Unknown Verified 06/18/19 14:01 [From Synthroid] losartan Allergy Unknown Verified 06/18/19 14:01 montelukast sodium Allergy Wheezing Verified 06/18/19 14:01 [From Singulair] pantoprazole sodium Allergy Abdominal Verified 06/18/19 14:01 [From Protonix] Pain Penicillins Allergy Rash/Hives Verified 06/18/19 14:01 red dye Allergy Abdominal Verified 06/18/19 14:01 Pain Sulfa (Sulfonamide Allergy Swelling Verified 06/18/19 14:01 Antibiotics) IN MOUTH sulfamethoxazole Allergy swelling Verified 06/18/19 14:01 [From Bactrim] tongue sulfanilamide Allergy Unknown Verified 06/18/19 14:01 trimethoprim [From Bactrim] Allergy Swelling Verified 06/18/19 14:01 venom-honey bee Allergy Dyspnea Verified 06/18/19 14:01 [bee venom (honey bee)] BANDAIDS Allergy Rash/Hives Uncoded 06/18/19 13:19 Dye for gallbladder scan. Allergy Anaphylaxis Uncoded 06/18/19 13:19 tomatoes AdvReac Abdominal Uncoded 06/18/19 13:19 Pain Physical Exam Vitals: Vital Signs Temp Pulse Pulse Resp BP BP Pulse Ox 06/19/19 08:00 97.7 F 98 18 147/77 98 06/19/19 03:30 98.2 F 84 16 145/78 93 L 06/18/19 23:10 98.8 F 70 16 168/86 96 06/18/19 20:53 74 06/18/19 20:44 70 100 06/18/19 19:40 16 06/18/19 19:30 98 F 81 16 169/72 98 06/18/19 17:50 97.9 F 88 20 182/97 97 06/18/19 17:13 78 20 134/82 97 06/18/19 16:00 86 20 06/18/19 15:00 85 22 97 06/18/19 14:00 90 18 168/95 98 06/18/19 13:16 97.1 F L 85 16 146/97 98 06/18/19 13:14 98 Intake and Output 06/18/19 06/19/19 06/19/19 22:59 06:59 14:59 Output Total 300 Balance -300 Output: Urine 300 Other: # Voids 0 - Constitutional General appearance: mild distress, thin (cachectic) - EENT Eyes: anicteric sclerae, EOMI, PERRLA ENT: hearing grossly normal, NA/AT - Neck Neck: no lymphadenopathy, normal ROM - Respiratory Respiratory: bilateral: CTA - Cardiovascular Rhythm: regular Heart sounds: normal: S1, S2 Abnormal Heart Sounds: no systolic murmur, no diastolic murmur, no rub, no S3 Gallop, no S4 Gallop, no click, no other - Gastrointestinal General gastrointestinal: normal bowel sounds, no organomegaly, soft, no tenderness - Integumentary Integumentary: decreased turgor, pale - Neurologic Neurologic: CNII-XII intact - Musculoskeletal Musculoskeletal: generalized weakness - Psychiatric Psychiatric: A&O x's 3, appropriate affect, intact judgment & insight Results CBC & Chem 7: 06/19/19 05:48 06/19/19 05:48 Labs: Abnormal Lab Results - Last 24 Hours (Table) 06/18/19 06/18/19 06/18/19 Range/Units 13:30 13:30 19:10 WBC (3.8-10.6) k/uL Neutrophils # (1.3-7.7) k/uL Potassium (3.5-5.1) mmol/L Chloride (98-107) mmol/L Carbon Dioxide 21 L (22-30) mmol/L BUN 25 H (7-17) mg/dL Creatinine 1.95 H (0.52-1.04) mg/dL Glucose 126 H (74-99) mg/dL Troponin I 0.037 H* 0.039 H* (0.000-0.034) ng/mL C-Reactive Protein (<10.0) mg/L Cholesterol (<200) mg/dL LDL Cholesterol, Calc (0-99) mg/dL Urine Protein (Negative) Urine Ketones (Negative) Urine Blood (Negative) Urine WBC (0-5) /hpf Urine Bacteria (None) /hpf Urine Mucus (None) /hpf 06/18/19 06/19/19 06/19/19 Range/Units 21:30 01:33 05:48 WBC (3.8-10.6) k/uL Neutrophils # (1.3-7.7) k/uL Potassium 3.0 L (3.5-5.1) mmol/L Chloride 111 H (98-107) mmol/L Carbon Dioxide 17 L (22-30) mmol/L BUN 26 H (7-17) mg/dL Creatinine 1.86 H (0.52-1.04) mg/dL Glucose 112 H (74-99) mg/dL Troponin I 0.046 H* (0.000-0.034) ng/mL C-Reactive Protein (<10.0) mg/L Cholesterol 236 H (<200) mg/dL LDL Cholesterol, Calc 161 H (0-99) mg/dL Urine Protein 2+ H (Negative) Urine Ketones Trace H (Negative) Urine Blood Small H (Negative) Urine WBC 8 H (0-5) /hpf Urine Bacteria Occasional H (None) /hpf Urine Mucus Rare H (None) /hpf 06/19/19 06/19/19 Range/Units 05:48 05:48 WBC 13.8 H (3.8-10.6) k/uL Neutrophils # 11.0 H (1.3-7.7) k/uL Potassium (3.5-5.1) mmol/L Chloride (98-107) mmol/L Carbon Dioxide (22-30) mmol/L BUN (7-17) mg/dL Creatinine (0.52-1.04) mg/dL Glucose (74-99) mg/dL Troponin I (0.000-0.034) ng/mL C-Reactive Protein 21.9 H (<10.0) mg/L Cholesterol (<200) mg/dL LDL Cholesterol, Calc (0-99) mg/dL Urine Protein (Negative) Urine Ketones (Negative) Urine Blood (Negative) Urine WBC (0-5) /hpf Urine Bacteria (None) /hpf Urine Mucus (None) /hpf Thrombosis Risk Factor Assmnt - Choose All That Apply Each Factor Represents 1 point: Abnormal pulmonary function (COPD) Each Risk Factor Represents 2 Points: Age 61-74 years Other congenital or acquired thrombophilia - If yes, enter type in comment: No Thrombosis Risk Factor Assessment Total Risk Factor Score: 3 Thrombosis Risk Factor Assessment Level: Moderate Risk Assessment and Plan Plan: 1. Failure to thrive related to dysphagia and abdominal pain. Continue Bentyl, consult surgery. Ensure 3 times a day with meals. 2. Abdominal pain rule out mesenteric ischemia. Hydration today for possible CT angiogram of abdomen and pelvis tomorrow, due to elevated BUN and creatinine and unable to perform today. Previous CT angiogram of abdomen and pelvis performed 04/2019. No impression of the mesenteric artery at that time. 3. Colovesical fistula. Surgery consult appreciated, consult urology 4. Acute kidney injury on CKD. Continue with hydration, monitor kidney function, limit nephrotoxic medications. 5. Diarrhea with leukocytosis rule out colitis. CT without contrast was performed. Empiric anabiotic initiated ceftriaxone 1 g every 12 hours, vancomycin 250 mg by mouth every 6 hours, obtain stool studies. Lomotil 6. Dysphagia. Swallow evaluation. 7. Hypokalemia. Continue to monitor potassium, replace Potassium per protocol 8. Coronary artery disease, PCI with stent in 2010. Continue Eliquis, aspirin 9. Peripheral vascular disease, aortic aneurysm repair with stents. Continue Eliquis, 10. Takosubu syndrome in 2016, stable 11. Hepatitis C, stable 12. COPD Continue Ventolin, DuoNeb 13. History of DVT right lower leg. 14. Hypertension. Continue Norvasc, Bystolic, 15. Atrial fibrillation. Consult cardiology Continue Eliquis, 16. GERD. Continue Pepcid 20 mg 17. Depression. Continue Cymbalta 18. Hypothyroidism. Continue Synthroid 20 mcg by mouth daily 19. Hyperlipidemia. Pravastatin 80 mg by mouth at bedtime 20. Restless leg syndrome. Continue Mirapex 21. DVT prophylaxis. Continue aspirin L Oquist 22. GI prophylaxis. Continue Pepcid 20 mg by mouth Prognosis: guarded CODE STATUS: Full code Discharge plan: A minimum of 2 nights day, possible hospice Impression and plan of care have been directed as dictated by the signing physician. Nayana Torre nurse practitioner acting as scribe for signing physician.
--- NOTE | 2019-06-19 13:12 | P.CRDCN ---
History of Present Illness Consult date: 06/19/19 Reason for Consult (text): Elevated troponins History of present illness: This is a 69-year-old female patient of Dr. VC Garcia with past medical history significant for hypertension, hyperlipidemia, DVT, GERD, COPD, coronary artery disease, patient underwent a cardiac catheterization in July 2017 which revealed a mid RCA stent which was patent, circumflex 30% diseased, proximal LAD 30-40% and 30% in the midportion, paroxysmal atrial fibrillation on chronic eliquis. History of aortic aneurysm with stent graft in 2005, history also of anemia. Patient was in the hospital most in November 2017 with symptoms of difficulty in swallowing with associated vomiting and diarrhea. She was subsequently transferred to [facility] and underwent upper and lower scopes that were reported as normal. Patient last saw Dr. Garcia on Friday and had no issues at the time. She did not have any medication changes but did get samples of eliquis. Patient states she did have a drop of 4 pounds over the past 3 weeks. Patient came into [facility] emergency center due to sudden onset of abdominal pain to the right lower quadrant and also complaining of chest pain midsternal and radiating to the left side. No r adiation to the neck or arm. She has had nausea and vomiting and diarrhea. She complains of sweats and feeling lightheaded and dizzy. She complains of feeling weak and also complains of lumbar back pain. Chest x-ray revealed COPD with no acute findings. CAT scan of the abdomen and pelvis revealed air-filled levels within the urinary bladder correlate for colovesicular fistula. Exam was limit ed due to cachectic appearance. Aortic aneurysm stent repair evident. This cannot be well evaluated without IV contrast. Echocardiogram from February 2019 reveals EF 55-60%, mild concentric left ventricular hypertrophy, mild aortic valve sclerosis, mild mitral regurgitation, moderate tricuspid regurgitation, mild pulmonary hypertension. Patient continues to be an active tobacco user. Review Of Systems: Constitutional: No fever, no chills, no night sweats. Reports weight change. Reports weakness, fatigue or lethargy. No daytime sleepiness. EENT: No headache. No blurred vision or double vision, no loss of vision. No loss of Hearing, Reports dizziness. No nasal drainage or congestion. No epistaxis. No sore throat. Lungs: No shortness of breath, cough, no sputum production. No wheezing. Cardiovascular: Reports chest pain, no lower extremity edema. No palpitations. No paroxysmal nocturnal dyspnea. No orthopnea. Reports lightheadedness or dizziness. No syncopal episodes. Abdominal: Reports abdominal pain. Reports nausea, Reports vomiting. Reports diarrhea. No constipation. No bloody or tarry stools.Reports loss of appetite. Genitourinary: No dysuria, increased frequency, urgency. No urinary retention. Musculoskeletal: No myalgias. No muscle weakness, no gait dysfunction, no frequent falls. No back pain. No neck pain. Integumentary: No wounds, no lesions. No rash or pruritus. No unusual bruising. No change in hair or nails. Neurologic: No aphasia. No facial droop. No change in mentation. No head injury. No headache. No paralysis. No paresthesia. Psychiatric: No depression. No anxiety. Endocrine: No abnormal blood sugars. Reports weight change. No excessive sweating or thirst. Gen: This is a thin very cachectic appearing 69-year-old female. She is resting in bed and appears to be uncomfortable due to pain.] HEENT: Head is atraumatic, normocephalic. Pupils equal, round. Sclerae is anicteric. NECK: Supple. No JVD. No lymphadenopathy. No thyromegaly. LUNGS: Clear to auscultation. No wheezes or rhonchi. No intercostal retracti ons. HEART: Regular rate and rhythm. No murmur. ABDOMEN: Soft. Bowel sounds are present. No masses. Right lower quadrant tenderness. Strong pulses palpated from aorta in abdomen EXTREMITIES: No pedal edema. No calf tenderness. Dorsalis pedis +1 bilaterally. NEUROLOGICAL: Patient is awake, alert and oriented x3. Cranial nerves 2 through 12 are grossly intact. Assessment: Chest pain with mildly abnormal troponins not consistent with myocardial injury Abdominal pain with nausea vomiting diarrhea Paroxysmal atrial fibrillation currently in sinus rhythm Coronary artery disease with prior RCA stent, patient underwent a cardiac catheterization in July 2017 which revealed heavily calcified right and left coronary systems with patent stent to the RCA, mild disease in the circumflex pr oximal and mid LAD, stable Chronic diastolic heart failure Hypertension Hyperlipidemia History of DVT History of abdominal aortic aneurysm with stent graft GERD COPD Active tobacco use and dependence Plan: Continue aspirin 81 mg daily, eliquis 2.5 mg twice daily, nebivolol 5 mg twice daily, amlodipine 5 mg daily Change pravastatin to atorvastatin 40 mg daily Cardiology will sign off this case and following on an as-needed basis. Please reconsult if any concerns. Thank you kindly for this consultation. Nurse practitioner note has been reviewed, I agree with documented findings and plan of care. Patient was seen and examined. Past Medical History Past Medical History: Atrial Fibrillation, Asthma, Coronary Artery Disease (CAD), Chest Pain / Angina, COPD, Deep Vein Thrombosis (DVT), GERD/Reflux, GI Bleed, Hypertension, Liver Disease, Memory Impairment, Myocardial Infarction (MO), Pneumonia, Respiratory Disorder, Sleep Apnea/CPAP/BIPAP, Vascular Disorder Additional Past Medical History / Comment(s): on 10/25/18 pt states was having pizza with family and food got stuck, pt had small amount of emesis. She went to bed and woke up to discover that she was incontinent of stool while she slept. Pt states that this has never happened.Patient continues to have difficulty swallowing like before. HEP C. Aortic aneurysm with stent-being monitored, Takosubu syndrome in 2016, R groin dissection/cardiac cath, recent bacteremia- blood cultures positive for veridans strep-completed antibiotics, bronchitis, home O2 at 3L/NC most of the time, LG without device-stable, DVT R leg, lower GI bleed, hepatitis C with Harvoni treatment, anemia with iron infusions x2, bilateral femoral head avascular necrosis, RLS, migraines, insomnia, constipation, overactive bladder, post menopausal bleed. Last Myocardial Infarction Date:: 07/2017 History of Any Multi-Drug Resistant Organisms: None Reported Past Surgical History: Bladder Surgery, Cholecystectomy, Heart Catheterization With Stent, Hysterectomy, Orthopedic Surgery Additional Past Surgical History / Comment(s): 11/28/17 lap albert, PCI with stent 2010, cardiac cath 07/2017-treat medically, common iliac artery stent 2005, exploratory lap, liver bx, R foot surgery d/t infection, R shoulder arthroscopic surgery, CAN, EGD, colonoscopy years ago, R leg varicose vein surgery, bladder suspension, eric cataract sx Past Anesthesia/Blood Transfusion Reactions: No Reported Reaction Date of Last Stent Placement:: 2010 Past Psychological History: Anxiety, Depression, Panic Disorder Additional Psychological History / Comment(s): PT RESIDES WITH HER SPOUSE WHO IS IN HIS 80'S AND IS NOT WELL. PT USES a walker. SHE NO LONGER DRIVES, FAMILY TAKES THEM TO THEIR APPTS. THEY HAVE VNA. pt stated has home 02 3 liters n/c, has cane/walker/wheel chair if needed. Smoking Status: Current every day smoker Past Alcohol Use History: None Reported Additional Past Alcohol Use History / Comment(s): She was a smoker starting in 1956. Patient states now she smokes e-cigarettes. Past Drug Use History: None Reported - Past Family History Brother(s) Family Medical History: Coronary Artery Disease (CAD), Myocardial Infarction (MO) Father Additional Family Medical History / Comment(s): FROM CIRRHOSIS OF THE LIVER Mother Family Medical History: COPD Additional Family Medical History / Comment(s): FROM AAA, HAD HX of TB. Medications and Allergies Home Medications Medication Instructions Recorded Confirmed Type Sucralfate [Carafate] 1 gm PO AC-TID 12/27/13 06/18/19 History Pramipexole [Mirapex] 0.125 mg PO HS 09/12/14 06/18/19 History Tiotropium 18 Mcg/Puff [Spiriva] 1 cap INHALATION RT-BID 09/12/14 06/18/19 History DULoxetine HCL [Cymbalta] 60 mg PO BID 07/18/17 06/18/19 History Aspirin 81 mg PO DAILY chew 09/02/17 06/18/19 Rx Pravastatin Sodium [Pravachol] 80 mg PO HS #0 tab 09/02/17 06/18/19 Rx Dexlansoprazole [Dexilant] 60 mg PO DAILY 12/12/17 06/18/19 History Nitroglycerin Sl Tabs [Nitrostat] 0.4 mg SUBLINGUAL Q5M PRN 12/12/17 06/18/19 History guaiFENesin [Mucinex] 1,200 mg PO Q12H 12/12/17 06/18/19 History Albuterol Inhaler [Ventolin Hfa 1 - 2 puff INHALATION RT-Q6H PRN 10/08/18 06/18/19 History Inhaler] Butalb/APAP/Caff 50-325-40Mg 1 - 2 tab PO Q8H PRN 10/08/18 06/18/19 History [Fioricet 50-325-40] Calcium Carbonate/Vitamin D3 1 tab PO BID 10/08/18 06/18/19 History [Calcium 600-Vit D3 400 Caplet] Ipratropium-Albuterol Nebulize 3 ml INHALATION RT-QID 10/08/18 06/18/19 History [Duoneb 0.5 mg-3 mg/3 ml Soln] Topiramate [Topamax] 50 mg PO BID 10/08/18 06/18/19 History cycloSPORINE [Restasis] 1 drop BOTH EYES BID 10/08/18 06/18/19 History ALPRAZolam [Xanax] 0.5 mg PO TID PRN 02/14/19 06/18/19 History Levothyroxine Sodium [Synthroid] 25 mcg PO DAILY 02/28/19 06/18/19 History Multivitamins, Thera [Multivitamin 1 tab PO DAILY 02/28/19 06/18/19 History (formulary)] Nebivolol [Bystolic] 5 mg PO BID 02/28/19 06/18/19 History Apixaban [Eliquis] 2.5 mg PO BID #60 tablet 03/02/19 06/18/19 Rx Dicyclomine [Bentyl] 20 mg PO QID PRN tab 03/02/19 06/18/19 Rx Famotidine [Pepcid] 20 mg PO DAILY #30 tab 03/03/19 06/18/19 Rx Fesoterodine Fumarate [Toviaz] 8 mg PO DAILY 03/03/19 06/18/19 History Polyethylene Glycol 3350 [Miralax] 17 gm PO DAILY #30 packet 03/03/19 06/18/19 Rx amLODIPine [Norvasc] 5 mg PO DAILY #30 tab 03/03/19 06/18/19 Rx Sennosides-Docusate Sodium 2 tab PO DAILY 06/18/19 06/18/19 History [Senokot-S] Allergies Allergy/AdvReac Type Severity Reaction Status Date / Time naproxen sodium [From Aleve] Allergy Severe Anaphylaxis Verified 06/18/19 14:01 adhesive Allergy Rash/Hives Verified 06/18/19 14:01 cinnamon [Cinnamon] Allergy Dyspnea Verified 06/18/19 14:01 clindamycin Allergy Anaphylaxis Verified 06/18/19 14:01 codeine Allergy Nausea & Verified 06/18/19 14:01 Vomiting gentamicin [Gentamicin] Allergy SWELLING Verified 06/18/19 14:01 OF FACE W/ EYE DROPS paola Allergy Dyspnea Verified 06/18/19 14:01 Iodinated Contrast Media Allergy Dyspnea Verified 06/18/19 14:01 [Iodinated Contrast- Oral and IV Dye] latex Allergy Rash/Hives Verified 06/18/19 14:01 levothyroxine sodium Allergy Unknown Verified 06/18/19 14:01 [From Synthroid] losartan Allergy Unknown Verified 06/18/19 14:01 montelukast sodium Allergy Wheezing Verified 06/18/19 14:01 [From Singulair] pantoprazole sodium Allergy Abdominal Verified 06/18/19 14:01 [From Protonix] Pain Penicillins Allergy Rash/Hives Verified 06/18/19 14:01 red dye Allergy Abdominal Verified 06/18/19 14:01 Pain Sulfa (Sulfonamide Allergy Swelling Verified 06/18/19 14:01 Antibiotics) IN MOUTH sulfamethoxazole Allergy swelling Verified 06/18/19 14:01 [From Bactrim] tongue sulfanilamide Allergy Unknown Verified 06/18/19 14:01 trimethoprim [From Bactrim] Allergy Swelling Verified 06/18/19 14:01 venom-honey bee Allergy Dyspnea Verified 06/18/19 14:01 [bee venom (honey bee)] BANDAIDS Allergy Rash/Hives Uncoded 06/18/19 13:19 Dye for gallbladder scan. Allergy Anaphylaxis Uncoded 06/18/19 13:19 tomatoes AdvReac Abdominal Uncoded 06/18/19 13:19 Pain Physical Exam Vitals: Vital Signs Temp Pulse Pulse Resp BP BP Pulse Ox 06/19/19 03:30 98.2 F 84 16 145/78 93 L 06/18/19 23:10 98.8 F 70 16 168/86 96 06/18/19 20:53 74 06/18/19 20:44 70 100 06/18/19 19:40 16 06/18/19 19:30 98 F 81 16 169/72 98 06/18/19 17:50 97.9 F 88 20 182/97 97 06/18/19 17:13 78 20 134/82 97 06/18/19 16:00 86 20 06/18/19 15:00 85 22 97 06/18/19 14:00 90 18 168/95 98 06/18/19 13:16 97.1 F L 85 16 146/97 98 06/18/19 13:14 98 Intake and Output 06/18/19 06/19/19 06/19/19 22:59 06:59 14:59 Output Total 300 Balance -300 Output: Urine 300 Other: # Voids 0 Results 06/19/19 05:48 06/19/19 05:48 Cardiac Enzymes 06/18/19 06/18/19 06/18/19 Range/Units 13:30 13:30 19:10 AST 33 (14-36) U/L Troponin I 0.037 H* 0.039 H* (0.000-0.034) ng/mL 06/19/19 06/19/19 Range/Units 01:33 05:48 AST 32 (14-36) U/L Troponin I 0.046 H* (0.000-0.034) ng/mL Coagulation 06/18/19 Range/Units 13:30 PT 10.0 (9.0-12.0) sec APTT 25.4 (22.0-30.0) sec Lipids 06/19/19 Range/Units 05:48 Triglycerides 137 (<150) mg/dL Cholesterol 236 H (<200) mg/dL HDL Cholesterol 48 (40-60) mg/dL CBC 06/18/19 06/19/19 Range/Units 13:30 05:48 WBC 10.1 13.8 H (3.8-10.6) k/uL RBC 4.82 4.24 (3.80-5.40) m/uL Hgb 14.9 D 13.0 (11.4-16.0) gm/dL Hct 44.8 39.5 (34.0-46.0) % Plt Count 270 260 (150-450) k/uL Comprehensive Metabolic Panel 06/18/19 06/19/19 Range/Units 13:30 05:48 Sodium 138 142 (137-145) mmol/L Potassium 3.5 3.0 L (3.5-5.1) mmol/L Chloride 107 111 H (98-107) mmol/L Carbon Dioxide 21 L 17 L (22-30) mmol/L BUN 25 H 26 H (7-17) mg/dL Creatinine 1.95 H 1.86 H (0.52-1.04) mg/dL Glucose 126 H 112 H (74-99) mg/dL Calcium 9.4 8.8 (8.4-10.2) mg/dL AST 33 32 (14-36) U/L ALT 20 17 (9-52) U/L Alkaline Phosphatase 107 95 (38-126) U/L Total Protein 7.0 6.3 (6.3-8.2) g/dL Albumin 4.0 3.5 (3.5-5.0) g/dL Current Medications Generic Name Dose Route Start Last Admin Trade Name Freq PRN Reason Stop Dose Admin Acetaminophen 650 mg 06/18/19 18:44 06/18/19 19:22 Tylenol Tab PO 650 mg Q6HR PRN Administration Fever and/ or MILD Pain Acetaminophen/Butalbital/Caffeine 1 each 06/18/19 18:28 Fioricet 50-325-40 PO Q8H PRN Migraine Headache Albuterol Sulfate 2.5 mg 06/18/19 18:28 Ventolin Nebulized INHALATION RT-Q6H PRN Shortness Of Breath Albuterol/Ipratropium 3 ml 06/18/19 20:00 06/18/19 20:43 Duoneb 0.5 Mg-3 Mg/3 Ml Soln INHALATION 3 ml RT-QID CRISTA Administration Alprazolam 0.5 mg 06/18/19 18:28 Xanax PO TID PRN Anxiety Amlodipine Besylate 5 mg 06/18/19 18:45 06/18/19 19:22 Norvasc PO 5 mg DAILY CRISTA Administration Apixaban 2.5 mg 06/18/19 21:00 06/18/19 20:05 Eliquis PO 2.5 mg BID CRISTA Administration Aspirin 81 mg 06/19/19 09:00 Aspirin PO DAILY CRISTA Calcium Carbonate 1 each 06/18/19 21:00 06/18/19 20:05 Oscal 500+D PO 1 each BID CRISTA Administration Cyclosporine 1 drops 06/18/19 21:00 06/18/19 20:05 Restasis 0.05% Ophth Soln BOTH EYES 1 drops BID CRISTA Administration Dicyclomine HCl 20 mg 06/18/19 18:28 Bentyl PO QID PRN Dyspepsia Duloxetine HCl 60 mg 06/18/19 21:00 06/18/19 20:05 Cymbalta PO 60 mg BID CRISTA Administration Famotidine 20 mg 06/19/19 09:00 Pepcid PO DAILY [facility] Ceftriaxone Sodium 1 gm/ 50 mls @ 100 mls/hr 06/19/19 18:00 Sodium Chloride IVPB Q24H CRISTA Sodium Chloride 1,000 mls @ 75 mls/hr 06/18/19 19:30 06/18/19 19:45 Saline 0.9% IV 75 mls/hr .[id number] CRISTA Administration Levothyroxine Sodium 25 mcg 06/19/19 06:30 06/19/19 06:17 Synthroid PO Not Given DAILY@0630 [facility] Miscellaneous Information 1 each 06/19/19 07:02 Potassium Per Protocol MISCELLANE DAILY PRN Per Protocol Protocol Morphine Sulfate 2 mg 06/18/19 19:53 06/19/19 01:48 Morphine Sulfate (Inj) IVP 2 mg Q6H PRN Administration SEVERE Pain/Discomfort Multivitamins 1 each 06/19/19 09:00 Theragran PO DAILY [facility] Nebivolol 5 mg 06/18/19 21:00 06/18/19 20:05 Bystolic PO 5 mg BID CRISTA Administration Nitroglycerin 0.4 mg 06/18/19 17:01 Nitrostat SUBLINGUAL Q5M PRN Chest Pain Polyethylene Glycol 17 gm 06/19/19 09:00 Miralax PO DAILY [facility] Pramipexole Dihydrochloride 0.125 mg 06/18/19 21:00 06/18/19 20:05 Mirapex PO 0.125 mg HS CRISTA Administration Pravastatin Sodium 80 mg 06/18/19 21:00 06/18/19 20:05 Pravachol PO 80 mg HS C[facility]STA Administration Senna/Docusate Sodium 2 each 06/19/19 09:00 Senokot-S PO DAILY [facility] Intake and Output 06/18/19 06/19/19 06/19/19 22:59 06:59 14:59 Output Total 300 Balance -300 Output: Urine 300 Other: # Voids 0 06/19/19 05:48 06/19/19 05:48
--- NOTE | 2019-06-19 16:39 | P.GSCN ---
History of Present Illness Consult date: 06/19/19 Reason for Consult: Air in the bladder History of present illness: Ms. Mendenhall is 69 yo female admitted with abdominal pain. patient underwent a CT scan of the abdomen and pelvis which showed air within the bladder. Patient has not had any recent catheter placement and is unknown if she had a straight cath performed recently. she denies any urinary symptoms, denies any history of fecalurea pneumaturia. No history of recurrent UTIs or renal calculi. No previous bladder surgeries. She underwent a colonoscopy last year which was wit hin normal limits Review of Systems - Constitutional Denies chills, Denies fever - Cardiovascular Denies chest pain, Denies shortness of breath - Respiratory Denies cough, Denies dyspnea - Gastrointestinal Reports abdominal pain - Genitourinary Genitourinary: Denies dysuria, Denies flank pain, Denies hematuria, Denies incomplete emptying, Denies urgency - Neurological Denies confusion, Denies seizures - Psychiatric Denies confusion, Denies irritability Past Medical History Past Medical History: Atrial Fibrillation, Asthma, Coronary Artery Disease (CAD), Chest Pain / Angina, COPD, Deep Vein Thrombosis (DVT), GERD/Reflux, GI Bleed, Hypertension, Liver Disease, Memory Impairment, Myocardial Infarction (LA), Pneumonia, Respiratory Disorder, Sleep Apnea/CPAP/BIPAP, Vascular Disorder Additional Past Medical History / Comment(s): on 10/25/18 pt states was having pizza with family and food got stuck, pt had small amount of emesis. She went to bed and woke up to discover that she was incontinent of stool while she slept. Pt states that this has never happened.Patient continues to have difficulty swallowing like before. HEP C. Aortic aneurysm with stent-being monitored, Takosubu syndrome in 2016, R groin dissection/cardiac cath, recent bacteremia- blood cultures positive for veridans strep-completed antibiotics, bronchitis, home O2 at 3L/NC most of the time, GL without device-stable, DVT R leg, lower GI bleed, hepatitis C with Harvoni treatment, anemia with iron infusions x2, bilateral femoral head avascular necrosis, RLS, migraines, insomnia, constipation, overactive bladder, post menopausal bleed. Last Myocardial Infarction Date:: 07/2017 History of Any Multi-Drug Resistant Organisms: None Reported Past Surgical History: Bladder Surgery, Cholecystectomy, Heart Catheterization With Stent, Hysterectomy, Orthopedic Surgery Additional Past Surgical History / Comment(s): 11/28/17 lap albert, PCI with stent 2010, cardiac cath 07/2017-treat medically, common iliac artery stent 2005, exploratory lap, liver bx, R foot surgery d/t infection, R shoulder arthroscopic surgery, CAN, EGD, colonoscopy years ago, R leg varicose vein surgery, bladder suspension, eric cataract sx Past Anesthesia/Blood Transfusion Reactions: No Reported Reaction Date of Last Stent Placement:: 2010 Past Psychological History: Anxiety, Depression, Panic Disorder Additional Psychological History / Comment(s): PT RESIDES WITH HER SPOUSE WHO IS IN HIS 80'S AND IS NOT WELL. PT USES a walker. SHE NO LONGER DRIVES, FAMILY TAKES THEM TO THEIR APPTS. THEY HAVE VNA. pt stated has home 02 3 liters n/c, has cane/walker/wheel chair if needed. Smoking Status: Current every day smoker Past Alcohol Use History: None Reported Additional Past Alcohol Use History / Comment(s): She was a smoker starting in 1956. Patient states now she smokes e-cigarettes. Past Drug Use History: None Reported - Past Family History Brother(s) Family Medical History: Coronary Artery Disease (CAD), Myocardial Infarction (LA) Father Additional Family Medical History / Comment(s): FROM CIRRHOSIS OF THE LIVER Mother Family Medical History: COPD Additional Family Medical History / Comment(s): FROM AAA, HAD HX of TB. Medications and Allergies Home Medications Medication Instructions Recorded Confirmed Type Sucralfate [Carafate] 1 gm PO AC-TID 12/27/13 06/18/19 History Pramipexole [Mirapex] 0.125 mg PO HS 09/12/14 06/18/19 History Tiotropium 18 Mcg/Puff [Spiriva] 1 cap INHALATION RT-BID 09/12/14 06/18/19 History DULoxetine HCL [Cymbalta] 60 mg PO BID 07/18/17 06/18/19 History Aspirin 81 mg PO DAILY chew 09/02/17 06/18/19 Rx Pravastatin Sodium [Pravachol] 80 mg PO HS #0 tab 09/02/17 06/18/19 Rx Dexlansoprazole [Dexilant] 60 mg PO DAILY 12/12/17 06/18/19 History Nitroglycerin Sl Tabs [Nitrostat] 0.4 mg SUBLINGUAL Q5M PRN 12/12/17 06/18/19 History guaiFENesin [Mucinex] 1,200 mg PO Q12H 12/12/17 06/18/19 History Albuterol Inhaler [Ventolin Hfa 1 - 2 puff INHALATION RT-Q6H PRN 10/08/18 06/18/19 History Inhaler] Butalb/APAP/Caff 50-325-40Mg 1 - 2 tab PO Q8H PRN 10/08/18 06/18/19 History [Fioricet 50-325-40] Calcium Carbonate/Vitamin D3 1 tab PO BID 10/08/18 06/18/19 History [Calcium 600-Vit D3 400 Caplet] Ipratropium-Albuterol Nebulize 3 ml INHALATION RT-QID 10/08/18 06/18/19 History [Duoneb 0.5 mg-3 mg/3 ml Soln] Topiramate [Topamax] 50 mg PO BID 10/08/18 06/18/19 History cycloSPORINE [Restasis] 1 drop BOTH EYES BID 10/08/18 06/18/19 History ALPRAZolam [Xanax] 0.5 mg PO TID PRN 02/14/19 06/18/19 History Levothyroxine Sodium [Synthroid] 25 mcg PO DAILY 02/28/19 06/18/19 History Multivitamins, Thera [Multivitamin 1 tab PO DAILY 02/28/19 06/18/19 History (formulary)] Nebivolol [Bystolic] 5 mg PO BID 02/28/19 06/18/19 History Apixaban [Eliquis] 2.5 mg PO BID #60 tablet 03/02/19 06/18/19 Rx Dicyclomine [Bentyl] 20 mg PO QID PRN tab 03/02/19 06/18/19 Rx Famotidine [Pepcid] 20 mg PO DAILY #30 tab 03/03/19 06/18/19 Rx Fesoterodine Fumarate [Toviaz] 8 mg PO DAILY 03/03/19 06/18/19 History Polyethylene Glycol 3350 [Miralax] 17 gm PO DAILY #30 packet 03/03/19 06/18/19 Rx amLODIPine [Norvasc] 5 mg PO DAILY #30 tab 03/03/19 06/18/19 Rx Sennosides-Docusate Sodium 2 tab PO DAILY 06/18/19 06/18/19 History [Senokot-S] Allergies Allergy/AdvReac Type Severity Reaction Status Date / Time naproxen sodium [From Aleve] Allergy Severe Anaphylaxis Verified 06/18/19 14:01 adhesive Allergy Rash/Hives Verified 06/18/19 14:01 cinnamon [Cinnamon] Allergy Dyspnea Verified 06/18/19 14:01 clindamycin Allergy Anaphylaxis Verified 06/18/19 14:01 codeine Allergy Nausea & Verified 06/18/19 14:01 Vomiting gentamicin [Gentamicin] Allergy SWELLING Verified 06/18/19 14:01 OF FACE W/ EYE DROPS paola Allergy Dyspnea Verified 06/18/19 14:01 Iodinated Contrast Media Allergy Dyspnea Verified 06/18/19 14:01 [Iodinated Contrast- Oral and IV Dye] latex Allergy Rash/Hives Verified 06/18/19 14:01 levothyroxine sodium Allergy Unknown Verified 06/18/19 14:01 [From Synthroid] losartan Allergy Unknown Verified 06/18/19 14:01 montelukast sodium Allergy Wheezing Verified 06/18/19 14:01 [From Singulair] pantoprazole sodium Allergy Abdominal Verified 06/18/19 14:01 [From Protonix] Pain Penicillins Allergy Rash/Hives Verified 06/18/19 14:01 red dye Allergy Abdominal Verified 06/18/19 14:01 Pain Sulfa (Sulfonamide Allergy Swelling Verified 06/18/19 14:01 Antibiotics) IN MOUTH sulfamethoxazole Allergy swelling Verified 06/18/19 14:01 [From Bactrim] tongue sulfanilamide Allergy Unknown Verified 06/18/19 14:01 trimethoprim [From Bactrim] Allergy Swelling Verified 06/18/19 14:01 venom-honey bee Allergy Dyspnea Verified 06/18/19 14:01 [bee venom (honey bee)] BANDAIDS Allergy Rash/Hives Uncoded 06/18/19 13:19 Dye for gallbladder scan. Allergy Anaphylaxis Uncoded 06/18/19 13:19 tomatoes AdvReac Abdominal Uncoded 06/18/19 13:19 Pain Surgical - Exam Vital Signs Pulse Ox 98 06/18/19 13:14 - General moderate pain, cachectic, chronically ill - Respiratory normal expansion, normal respiratory effort - Abdomen Abdomen: soft, tender (diffusely), no distended - Psychiatric oriented to time, oriented to person, oriented to place Results - Labs 06/19/19 05:48 06/19/19 05:48 Abnormal Lab Results - Last 24 Hours (Table) 06/18/19 06/18/19 06/19/19 Range/Units 19:10 21:30 01:33 WBC (3.8-10.6) k/uL Neutrophils # (1.3-7.7) k/uL Potassium (3.5-5.1) mmol/L Chloride (98-107) mmol/L Carbon Dioxide (22-30) mmol/L BUN (7-17) mg/dL Creatinine (0.52-1.04) mg/dL Glucose (74-99) mg/dL Troponin I 0.039 H* 0.046 H* (0.000-0.034) ng/mL C-Reactive Protein (<10.0) mg/L Cholesterol (<200) mg/dL LDL Cholesterol, Calc (0-99) mg/dL Urine Protein 2+ H (Negative) Urine Ketones Trace H (Negative) Urine Blood Small H (Negative) Urine WBC 8 H (0-5) /hpf Urine Bacteria Occasional H (None) /hpf Urine Mucus Rare H (None) /hpf 06/19/19 06/19/19 06/19/19 Range/Units 05:48 05:48 05:48 WBC 13.8 H (3.8-10.6) k/uL Neutrophils # 11.0 H (1.3-7.7) k/uL Potassium 3.0 L (3.5-5.1) mmol/L Chloride 111 H (98-107) mmol/L Carbon Dioxide 17 L (22-30) mmol/L BUN 26 H (7-17) mg/dL Creatinine 1.86 H (0.52-1.04) mg/dL Glucose 112 H (74-99) mg/dL Troponin I (0.000-0.034) ng/mL C-Reactive Protein 21.9 H (<10.0) mg/L Cholesterol 236 H (<200) mg/dL LDL Cholesterol, Calc 161 H (0-99) mg/dL Urine Protein (Negative) Urine Ketones (Negative) Urine Blood (Negative) Urine WBC (0-5) /hpf Urine Bacteria (None) /hpf Urine Mucus (None) /hpf Diabetes panel 06/19/19 Range/Units 05:48 Sodium 142 (137-145) mmol/L Potassium 3.0 L (3.5-5.1) mmol/L Chloride 111 H (98-107) mmol/L Carbon Dioxide 17 L (22-30) mmol/L BUN 26 H (7-17) mg/dL Creatinine 1.86 H (0.52-1.04) mg/dL Glucose 112 H (74-99) mg/dL Calcium 8.8 (8.4-10.2) mg/dL AST 32 (14-36) U/L ALT 17 (9-52) U/L Alkaline Phosphatase 95 (38-126) U/L Total Protein 6.3 (6.3-8.2) g/dL Albumin 3.5 (3.5-5.0) g/dL Triglycerides 137 (<150) mg/dL HDL Cholesterol 48 (40-60) mg/dL Calcium panel 06/19/19 Range/Units 05:48 Calcium 8.8 (8.4-10.2) mg/dL Albumin 3.5 (3.5-5.0) g/dL Pituitary panel 06/19/19 Range/Units 05:48 Sodium 142 (137-145) mmol/L Potassium 3.0 L (3.5-5.1) mmol/L Chloride 111 H (98-107) mmol/L Carbon Dioxide 17 L (22-30) mmol/L BUN 26 H (7-17) mg/dL Creatinine 1.86 H (0.52-1.04) mg/dL Glucose 112 H (74-99) mg/dL Calcium 8.8 (8.4-10.2) mg/dL Adrenal panel 06/19/19 Range/Units 05:48 Sodium 142 (137-145) mmol/L Potassium 3.0 L (3.5-5.1) mmol/L Chloride 111 H (98-107) mmol/L Carbon Dioxide 17 L (22-30) mmol/L BUN 26 H (7-17) mg/dL Creatinine 1.86 H (0.52-1.04) mg/dL Glucose 112 H (74-99) mg/dL Calcium 8.8 (8.4-10.2) mg/dL Total Bilirubin 0.6 (0.2-1.3) mg/dL AST 32 (14-36) U/L ALT 17 (9-52) U/L Alkaline Phosphatase 95 (38-126) U/L Total Protein 6.3 (6.3-8.2) g/dL Albumin 3.5 (3.5-5.0) g/dL - Imaging CT scan - pelvis: image reviewed (Large amount of air in the bladder,) Assessment and Plan Assessment: 69-year-old female with multiple comorbidities and cachectic and baseline. She presents with severe abdominal pain she underwent a CT abdomen and pelvis which showed a large amount of air in the bladder. no recent catheterization or instrumentation of the bladder. had a colonoscopy performed Last year which was within normal limits. Patient does not have classic symptoms of colovesical fistula. given the large amount of air on CT a colovesical fistula needed to be ruled out, of note patient would be a poor surgical candidate if colovesical fistula is diagnosed. Plan: -CT Cystogram -Check a PVR
[2019-06-19] MEDS: PRAMIPEXOLE 0.125 MG TAB PO SCH (20:35)
[2019-06-19] MEDS: ATORVASTATIN 40 MG TAB PO SCH (20:35)
[2019-06-19] MEDS: ONDANSETRON 4 MG/2 ML VIAL IVP PRN (21:49)
[2019-06-19] MEDS: CHERRY FLAVOR 60 ML BOTTLE PO PRN (23:01)
[2019-06-20] MEDS ORDERED: HYDROmorphone 0.5 MG/0.5 ML SYRINGE IVP STA (00:29)
[2019-06-20] MEDS: VANCOMYCIN ORAL SOLUTION 250 MG/5 ML BOTTLE PO SCH ×3 (05:42→18:10)
[2019-06-20] MEDS: CHERRY FLAVOR 60 ML BOTTLE PO PRN (05:42)
[2019-06-20] MEDS: LEVOTHYROXINE 25 MCG TAB PO SCH (05:43)
[2019-06-20 06:56] LABS: Basophils % (A) 0 %; Eosinophils % (A) 0 %; HCT 37.2 % (34.0-46.0); HGB 12.2 gm/dL (11.4-16.0); Lymphocytes # (A) 1.1 k/uL (1.0-4.8); Lymphocytes % (A) 6 %; MCHC 32.7 g/dL (31.0-37.0); MCV 94.8 fL (80.0-100.0); Mean Platelet Volume 6.7; Monocytes # (A) 0.9 k/uL (0-1.0); Monocytes % (A) 5 %; Neutrophils # (A) 16.1 k/uL (1.3-7.7); Neutrophils % (A) 88 %; Platelet Count 218 k/uL (150-450); RBC 3.93 m/uL (3.80-5.40); RDW 14.5 % (11.5-15.5); WBC 18.4 k/uL (3.8-10.6)
[2019-06-20 07:10] LABS: Calcium 8.4 mg/dL (8.4-10.2); Potassium 3.4 mmol/L (3.5-5.1)
[2019-06-20] MEDS: IPRATROPIUM-ALBUTEROL 3 ML NEB INHALATION SCH ×4 (08:07→21:06)
[2019-06-20] MEDS: CALCIUM CARB-VIT D 500MG-200UN 1 EACH TAB PO SCH ×2 (08:10→22:03)
[2019-06-20] MEDS: MORPHINE SULFATE 2 MG/ML SYRINGE IVP PRN (08:10)
[2019-06-20] MEDS: POLYETHYLENE GLYCOL 3350 17 GM POWD.PACK PO SCH (08:10)
[2019-06-20] MEDS: APIXABAN 2.5 MG TABLET PO SCH ×2 (08:10→22:04)
[2019-06-20] MEDS: amLODIPine 5 MG TAB PO SCH (08:10)
[2019-06-20] MEDS: DULoxetine HCL 60 MG CAPSULE.DR PO SCH ×2 (08:10→22:04)
[2019-06-20] MEDS: ASPIRIN 81 MG PO SCH (08:10)
[2019-06-20] MEDS: MULTIVITAMINS, THERA 1 EACH TAB PO SCH (08:10)
[2019-06-20] MEDS: NEBIVOLOL 5 MG TAB PO SCH ×2 (08:14→22:04)
[2019-06-20] MEDS: cycloSPORINE 0.05% OPHTH 0.4 ML DROPERETTE BOTH EYES SCH ×2 (08:14→22:08)
[2019-06-20] MEDS: FAMOTIDINE 20 MG TAB PO SCH (08:14)
[2019-06-20] MEDS ORDERED: IOPAMIDOL CONTRAST (ORAL USE) VIAL PO PRN (10:27)
--- NOTE | 2019-06-20 10:28 | P.PN ---
Subjective Progress Note Date: 06/20/19 Patient seen and examined at bedside. Complaining of back pain. Per nursing, patient has urinated in bed neal with no significant foul odor or finding of stool. Patient has not had any bowel movements. She denies having flatus. She is not complaining of abdominal pain but does appear to have tenderness on palpation. She denies any nausea or vomiting. Objective - Vital Signs Vital signs: Vital Signs Temp 98.2 F 06/20/19 08:00 Pulse 95 06/20/19 08:00 Resp 20 06/20/19 08:00 BP 140/77 06/20/19 08:00 Pulse Ox 94 L 06/20/19 08:00 Intake & Output 06/19/19 06/20/19 06/20/19 19:59 06:59 18:59 Intake Total Output Total Balance Weight Intake: Intake, IV Titration Amount Sodium Chloride 0.9% 1, 000 ml @ 75 mls/hr IV . [id number] CRISTA Rx#:[id number] Output: Urine Other: # Voids - Constitutional Constitutional Comment(s): no acute distress, cachectic, ill-appearing - Respiratory Details: no difficulty with respiration - Gastrointestinal Gastrointestinal Comment(s): Soft, nondistended, no rebound, no guarding, there is some mild tenderness to palpation in the bilateral lower quadrants - Musculoskeletal Musculoskeletal: Present: generalized weakness - Labs CBC & Chem 7: 06/20/19 05:57 06/20/19 05:57 Labs: Abnormal Lab Results - Last 24 Hours (Table) 06/19/19 06/20/19 06/20/19 Range/Units 05:48 05:57 05:57 WBC 18.4 H (3.8-10.6) k/uL Neutrophils # 16.1 H (1.3-7.7) k/uL Potassium 3.4 L (3.5-5.1) mmol/L Chloride 115 H (98-107) mmol/L Carbon Dioxide 14 L (22-30) mmol/L BUN 30 H (7-17) mg/dL Creatinine 1.68 H (0.52-1.04) mg/dL Glucose 109 H (74-99) mg/dL Prealbumin 14.0 L (18.0-42.0) mg/dL Assessment and Plan (1) Abdominal pain Narrative/Plan: 69-year-old female with abdominal pain and air-fluid level in urinary bladder - The patient does not appear to have any urinary symptoms associated with colovesical fistula. Urine is not foul-smelling and does not contain stool. Patient was evaluated by urology with plan for CT cysto and PVR check. - I did discuss this case with the admitting service. The patient is known to have vascular disease. She is noted to have an aortoiliac stent. Due to her elevated creatinine, we are unable to evaluate mesenteric vessels for any mesenteric ischemia with angiography. We will continue to hydrate. Creatinine has decreased to 1.6. Leukocytosis continues to increase and is at 18 today. She is not having any bloody bowel function. She is not having any tachycardic episodes nor a she hypotensive. We are still unable to obtain CT with any IV contrast due to her elevated creatinine. We will attempt imaging with abdominal x-ray and CT with oral and rectal contrast. We will also obtain a repeat lactic acid. - Overall, patient is significantly cachectic with a BMI of 12 and is also noted to have significant vascular disease requiring aortoiliac stent placement. Any emergent surgical procedure would likely have a poor prognosis. - We will continue to follow and make recommendations based on the patient's clinical progress. Current Visit: No Status: Acute Code(s): R10.9 - UNSPECIFIED ABDOMINAL PAIN SNOMED Code(s): 48578646
--- NOTE | 2019-06-20 11:04 | XR ---
EXAMINATION TYPE: XR abdomen acute w cxr , 3 VIEWS DATE OF EXAM ORDERED: 06/20/2019 HISTORY: Abd Pain. COMPARISON: None. FINDINGS: There has been a previous ACDF of the lower cervical spine. The lungs are overinflated. There is a questionable 2.1 cm mass at the right lung base. The left lung is clear. Pleural space are clear. The heart is not enlarged. Within the abdomen, an aortoiliac stent graft is visualized. [facility] The abdominal gas pattern demonstrates air-filled loops of large and small bowel. No obst ruction is seen. No free air is seen. No definite unusual calcifications are seen. IMPRESSION: 1. COPD 2. NODULE SEEN AT THE RIGHT LUNG BASE IS ONLY VISUALIZED IN ONE PROJECTION. THIS MAY BE ARTIFACTUAL. SHORT-TERM FOLLOW-UP VERSUS CT SCAN OF THE CHEST WOULD BE SUGGESTED. 3. POSTSURGICAL CHANGE. 4. NONSPECIFIC BOWEL GAS PATTERN. FOLLOW-UP CLINICALLY INDICATED WOULD BE SUGGESTED.
[2019-06-20] MEDS ORDERED: BARIUM SULFATE 450 ML ORAL.SUSP BOTTLE PO ONE (11:15)
[2019-06-20] MEDS: HYDROcodone/APAP 5-325MG 1 EACH TAB PO PRN ×2 (12:34→22:04)
--- NOTE | 2019-06-20 13:51 | P.PN ---
<Nayana Torre M - Last Filed: 06/20/19 13:39> Subjective Progress Note Date: 06/20/19 This is a 69-year-old female who presented to the emergency room complaining of generalized weakness. The patient states that the weakness has been ongoing for about a week or 2 and she has progressively gotten worse. She also states that she has had a significant weight loss in the last 5 days. Patient states that every time she eats she feels bloated and has increased abdominal pain. Patient continues to complain of mild diffuse abdominal pain. She denies vomiting however she does feel nauseous. Patient denies fever or chills. Patient does complain of diarrhea. Patient states that her abdominal pain has been going on for a couple months. She was seen by her primary care doctor who prescribed Bentyl to help with her appetite and ordered a CT angiogram of the abdomen and pelvis that was done in April. The results of the CT angiogram shows stable thoracic aortic aneurysm, aortoiliac stent graft within the abdomen is patent throughout its course. An attenuated external iliac artery to provide blood fl ow to the level of the common femoral arteries, extensive ball use emphysmatous change, asymmetric function of the kidneys with atopic right kidney functioning better than the left. Patient had a CT of the abdomen and pelvis without contrast performed 06/18/2019 impression: 1. Air-fluid level within the urinary bladder, correlate for colovesical fistula. 2. Exam is limited due to Static appearance. 3. Aortic aneurysm stent repair evident. Patient denies any dysuria or frequency. Patient has significant history of peripheral vascular disease with a aortic aneurysm repair with stent, coronary artery disease with stent placement 2010, right lower extremity DVT, itch or fibrillation, COPD, acid reflux, GI bleed, hypertension, sleep apnea, hepatitis C, hyperlipidemia, hyperthyroid, restless leg syndrome. 06/20: Patient continues to have decreased appetite feels bloated and nauseous with eating. Patient's unable to tolerate meals. CT from April was reviewed no evidence of mesenteric ischemia noted. Patient was seen by surgery, colonoscopy was reviewed from October no fistula was noted however the scope was incomplete due to incomplete prep. The scope was advanced to the proximal transverse colon. Urology has seen the patient and ordered a CT cystogram. Due to patient's elevated creatinine patient is unable to have a CT angiogram performed. May consider a CAT scan with oral contrast at barium enema to highlight the bowels. Concerned with possible ischemic bowel. Kidney function showed minimal improvement BUN 30, creatinine 1.68, potassium 3.4. Leukocytosis has increased to be WBC 18.4. Pre-albumin is 14 Review of Systems Constitutional: Reports anorexia, Reports fatigue, Reports malaise, Reports poor appetite, Reports weight loss, reports back pain Ears, nose, mouth and throat: Reports dysphagia Cardiovascular: Reports dyspnea on exertion, Denies chest pain, Denies irregular heart beat, Denies leg edema, Denies palpitations, Denies rapid heart beat Respiratory: Reports sleep apnea, Denies cough, Denies dyspnea Gastrointestinal: Reports abdominal pain, Reports bloating, Denies diarrhea, reports constipation Reports early satiety, Reports loss of appetite, Reports nausea, Denies hematemesis, Denies melena, Denies vomiting Genitourinary: Denies dysuria, Denies hematuria, Denies urgency, Denies urinary frequency Musculoskeletal: Denies myalgias Integumentary: Denies pruritus, Denies rash Neurological: Denies numbness, Denies weakness Psychiatric: Denies anxiety, Denies depression Endocrine: Denies fatigue, Denies weight change Objective - Vital Signs Vital signs: Vital Signs Temp 97.4 F L 06/20/19 12:00 Pulse 83 06/20/19 12:00 Resp 20 06/20/19 12:00 BP 161/80 06/20/19 12:00 Pulse Ox 98 06/20/19 12:00 Intake & Output 06/19/19 06/20/19 06/20/19 19:59 06:59 18:59 Intake Total Output Total Balance Weight Intake: Intake, IV Titration Amount Sodium Chloride 0.9% 1, 000 ml @ 75 mls/hr IV . [id number] [facility] Rx#:[id number] Output: Urine Other: # Voids - Exam General Appearance: Alert, cooperative, no distress, appears older stated age, severe cachectic BMI is 12 Neck HEENT: no lymphadenopathy, no thyroid enlargement, no carotid bruits. Lungs: Clear to auscultation without crackles or wheezes no rhonchi, no deformity. Chest Wall: Chest wall normal expansion with deep inspiration no tenderness and no deformity was found on exam, no costochondral pain or discomfort. Heart: Regular rate and rhythm, S1, S2 normal, no murmur, rub or gallop. Back: Symmetric, no curvature, ROM normal, no CVA tenderness. Abdomen: Hyperactive bowel sounds, firm able to palpate stool, tender with palpation no rebound or rigidity, no hepatosplenomegaly. Extremities: Extremities normal, atraumatic, no cyanosis or edema. Pulses: 2+ and symmetric. Skin: Skin color pale, texture dry, tugor decreased no rashes or lesions. Neurologic: Alert oriented x3 cranial nerves II through XII intact, no motor deficit, no abnormal balance or gait - Labs CBC & Chem 7: 06/20/19 05:57 06/20/19 05:57 Labs: Abnormal Lab Results - Last 24 Hours (Table) 06/19/19 06/20/19 06/20/19 Range/Units 05:48 05:57 05:57 WBC 18.4 H (3.8-10.6) k/uL Neutrophils # 16.1 H (1.3-7.7) k/uL Potassium 3.4 L (3.5-5.1) mmol/L Chloride 115 H (98-107) mmol/L Carbon Dioxide 14 L (22-30) mmol/L BUN 30 H (7-17) mg/dL Creatinine 1.68 H (0.52-1.04) mg/dL Glucose 109 H (74-99) mg/dL Prealbumin 14.0 L (18.0-42.0) mg/dL Assessment and Plan Plan: 1. Failure to thrive related to dysphagia and abdominal pain. Continue Bentyl, consult surgery. Ensure 3 times a day with meals. X-ray Abdomen ordered, CT of abdomen with oral contrast and a barium enema will be ordered if x-ray is inconclusive. If the area enema as given no results results for constipation, soapsuds enema to be ordered. 2. Abdominal pain rule out mesenteric ischemia. BUN and creatinine has improved slightly however still unable to have CT angiogram. Previous CT angiogram of abdomen and pelvis performed 04/2019 was reviewed no mesenteric ischemia noted. 3. Colovesical fistula. Surgery consult appreciated, urology consult appreciated, CT cystogram and PVR recommended. Awaiting results 4. Acute kidney injury on CKD. Continue with hydration, monitor kidney function, limit nephrotoxic medications. 5. leukocytosis rule out colitis. CT without contrast was performed. Empiric anabiotic initiated ceftriaxone 1 g every 12 hours, vancomycin 250 mg by mouth every 6 hours, obtain stool studies. Lomotil DC'd 6. Dysphagia. Swallow evaluation. 7. Hypokalemia. Continue to monitor potassium, replace Potassium per protocol 8. Coronary artery disease, PCI with stent in 2010. Continue Eliquis, aspirin 9. Peripheral vascular disease, aortic aneurysm repair with stents. Continue Eliquis, 10. Takosubu syndrome in 2016, stable 11. Hepatitis C, stable 12. COPD Continue Ventolin, DuoNeb 13. History of DVT right lower leg. 14. Hypertension. Continue Norvasc, Bystolic, 15. Atrial fibrillation. Consult cardiology Continue Eliquis, 16. GERD. Continue Pepcid 20 mg 17. Depression. Continue Cymbalta 18. Hypothyroidism. Continue Synthroid 20 mcg by mouth daily 19. Hyperlipidemia. Pravastatin 80 mg by mouth at bedtime 20. Restless leg syndrome. Continue Mirapex 21. Constipation. Barium enema if no results soapsuds enema to be performed 22. GI prophylaxis. Continue Pepcid 20 mg by mouth 23. DVT prophylaxis. Continue aspirin, Eliquis Prognosis: guarded CODE STATUS: Full code Discharge plan: A minimum of 2 nights day, possible hospice Impression and plan of care have been directed as dictated by the signing physician. Nayana Torre nurse practitioner acting as scribe for signing physician. <Riri Bailey - Last Filed: 06/20/19 18:36> Objective - Vital Signs Vital signs: Vital Signs Temp 98.3 F 06/20/19 15:56 Pulse 81 06/20/19 15:56 Resp 18 06/20/19 15:56 BP 146/75 06/20/19 15:56 Pulse Ox 99 06/20/19 15:56 Intake & Output 06/19/19 06/20/19 06/20/19 19:59 06:59 18:59 Intake Total 600 Output Total 100 Balance 500 Weight Intake: Intake, IV Titration 600 Amount Sodium Chloride 0.9% 1, 600 000 ml @ 75 mls/hr IV . [id number] [facility] Rx#:[id number] Output: Urine 100 Other: # Voids 2 - Labs CBC & Chem 7: 06/20/19 05:57 06/20/19 05:57 Labs: Abnormal Lab Results - Last 24 Hours (Table) 06/20/19 06/20/19 Range/Units 05:57 05:57 WBC 18.4 H (3.8-10.6) k/uL Neutrophils # 16.1 H (1.3-7.7) k/uL Potassium 3.4 L (3.5-5.1) mmol/L Chloride 115 H (98-107) mmol/L Carbon Dioxide 14 L (22-30) mmol/L BUN 30 H (7-17) mg/dL Creatinine 1.68 H (0.52-1.04) mg/dL Glucose 109 H (74-99) mg/dL Assessment and Plan Plan: Barium enema will be obtained tomorrow, follow by CT with oral contrast ad ay after barium swallow. will prep for barium enema with soap sup enema today
[2019-06-20] MEDS: BARIUM SULFATE 450 ML ORAL.SUSP BOTTLE PO PRN ×2 (15:32→18:22)
[2019-06-20] MEDS ORDERED: NON FORMULARY DRUG RECTAL ONE (15:45)
--- NOTE | 2019-06-20 17:41 | P.PN ---
Progress Note - Text Progress Note Date: 06/20/19 69-year-old female with multiple comorbidities and cachectic and baseline. Urology consulted for possible colovesicle fistula, based on air in the bladder . Patient does not have classic symptoms of colovesical fistula. Patient has allergy to IV contrast dye, including oral contrast. Given risk of contrast reaction with CT Cystogram, will plan on doing cystoscopy as an outpatient in 1- 2 weeks to evaluate for fistula.
--- NOTE | 2019-06-20 20:23 | CT ---
EXAMINATION TYPE: CT abdomen pelvis wo con DATE OF EXAM: 06/20/2019 COMPARISON: 06/18/2019 HISTORY: Abdominal pain. CT DLP: 249.2 mGycm Automated exposure control for dose reduction was used. TECHNIQUE: Helical acquisition of images was performed from the lung bases through the pelvis. FINDINGS: Lung bases are clear. There is no pleural effusion. Heart size is normal. Liver shows no focal defect. Spleen appears intact. There is aneurysm of the abdominal aorta with aor toiliac stent. Aneurysm measures up to 4 cm. Stomach is intact. The bile ducts are not dilated. Gallb ladder is not definitely seen. Kidneys show no hydronephrosis. I see no sign of a mechanical bowel obstruction. There is oral contra st down to the distal ileum and into the large bowel. There is suggestion of some wall thickening of the sigmoid colon. There is no evidence of free air. There is no retroperitoneal adenopathy. Lumbar s pine is intact. There is no compression fracture. Bony pelvis is intact. IMPRESSION: NO SIGN OF MECHANICAL BOWEL OBSTRUCTION. THERE IS POSSIBLE WALL THICKENING OF THE SIGMOID COLON THAT COULD RELATE TO SOME COLITIS THAT IS A CHANGE COMPARED TO RECENT EXAM 2 DAYS AGO. ABDOMINAL AORTIC AN EURYSM UNCHANGED. NO RENAL OBSTRUCTION. ATHEROSCLEROTIC VASCULAR DISEASE.
[2019-06-20] MEDS: PRAMIPEXOLE 0.125 MG TAB PO SCH (22:04)
[2019-06-20] MEDS: SODIUM CHLORIDE 0.9% 1,000 ML IV SCH (22:06)
[2019-06-20] MEDS: ATORVASTATIN 40 MG TAB PO SCH (22:07)
[2019-06-21] MEDS: CHERRY FLAVOR 60 ML BOTTLE PO PRN ×3 (00:44→12:26)
[2019-06-21] MEDS: VANCOMYCIN ORAL SOLUTION 250 MG/5 ML BOTTLE PO SCH ×3 (00:44→12:25)
[2019-06-21] MEDS: HYDROcodone/APAP 5-325MG 1 EACH TAB PO PRN ×2 (04:34→23:38)
[2019-06-21] MEDS: LEVOTHYROXINE 25 MCG TAB PO SCH (06:34)
--- NOTE | 2019-06-21 08:16 | P.PN ---
Subjective Progress Note Date: 06/21/19 Patient seen and examined at bedside. States she is having bowel function. Denies nausea or vomiting. Did have repeat CT of the abdomen and pelvis with oral contrast yesterday. Objective - Vital Signs Vital signs: Vital Signs Temp 97.4 F L 06/21/19 04:00 Pulse 70 06/21/19 04:00 Resp 18 06/21/19 04:00 BP 146/66 06/21/19 04:00 Pulse Ox 96 06/21/19 04:00 Intake & Output 06/20/19 06/21/19 06/21/19 18:59 06:59 18:59 Intake Total 600 450 Output Total 100 Balance 500 450 Intake: Intake, IV Titration 600 Amount Sodium Chloride 0.9% 1, 600 000 ml @ 75 mls/hr IV . [id number] [facility] Rx#:[id number] Oral 450 Output: Urine 100 Other: # Voids 2 2 # Bowel Movements 4 - Constitutional General appearance: Present: cooperative, no acute distress - Respiratory Details: No difficulty with respiration - Gastrointestinal Gastrointestinal Comment(s): Soft, mild generalized tenderness unchanged, nondistended, no rebound, no guarding - Musculoskeletal Musculoskeletal: Present: generalized weakness - Labs CBC & Chem 7: 06/20/19 05:57 06/20/19 05:57 Assessment and Plan (1) Abdominal pain Narrative/Plan: 69-year-old female with abdominal pain and air-fluid level in urinary bladder - The patient does not appear to have any urinary symptoms associated with colovesical fistula. Urine is not foul-smelling and does not contain stool. Patient was evaluated by urology with plan for outpatient cystoscopy. - I did discuss this case with the admitting service. The patient is known to have vascular disease. She is noted to have an aortoiliac stent. CT with oral contrast was performed yesterday with no acute findings. Lactic acid was noted at 1.3. She continues to be hemodynamically stable with no tachycardic episodes and no hypotensive episodes. She is not showing clinical signs of ischemic bowel. Continue supportive care. - Overall, patient is significantly cachectic with a BMI of 12 and is also noted to have significant vascular disease requiring aortoiliac stent placement. Any emergent surgical procedure would likely have a poor prognosis. - We will continue to follow and make recommendations based on the patient's clinical progress. Current Visit: No Status: Acute Code(s): R10.9 - UNSPECIFIED ABDOMINAL PAIN SNOMED Code(s): 84103310
[2019-06-21] MEDS: SODIUM CHLORIDE 0.9% 1,000 ML IV SCH ×2 (08:41→15:30)
[2019-06-21] MEDS: DULoxetine HCL 60 MG CAPSULE.DR PO SCH ×2 (08:42→21:14)
[2019-06-21] MEDS: MULTIVITAMINS, THERA 1 EACH TAB PO SCH (08:42)
[2019-06-21] MEDS: amLODIPine 5 MG TAB PO SCH (08:42)
[2019-06-21] MEDS: ASPIRIN 81 MG PO SCH (08:42)
[2019-06-21] MEDS: CALCIUM CARB-VIT D 500MG-200UN 1 EACH TAB PO SCH ×2 (08:42→21:14)
[2019-06-21] MEDS: NEBIVOLOL 5 MG TAB PO SCH ×2 (08:42→21:14)
[2019-06-21] MEDS: FAMOTIDINE 20 MG TAB PO SCH (08:42)
[2019-06-21] MEDS: APIXABAN 2.5 MG TABLET PO SCH ×2 (08:42→21:13)
[2019-06-21] MEDS: POLYETHYLENE GLYCOL 3350 17 GM POWD.PACK PO SCH (08:43)
[2019-06-21] MEDS: cycloSPORINE 0.05% OPHTH 0.4 ML DROPERETTE BOTH EYES SCH ×2 (08:43→21:14)
[2019-06-21] MEDS: MORPHINE SULFATE 2 MG/ML SYRINGE IVP PRN ×2 (08:50→20:04)
[2019-06-21] MEDS: IPRATROPIUM-ALBUTEROL 3 ML NEB INHALATION SCH ×4 (10:39→21:13)
--- NOTE | 2019-06-21 13:02 | FL ---
EXAMINATION TYPE: FL barium swallow w video DATE OF EXAM: 06/21/2019 MODIFIED SWALLOW / DEGLUTITION STUDY CLINICAL HISTORY: Dysphagia. TECHNIQUE: Deglutition study is performed utilizing thin liquid barium, nectar thick liquid barium, barium thick applesauce, and barium coated cracker. 57 seconds of fluoroscopy was utilized with 0 flu oroscopic images saved as the examination was video recorded. COMPARISON: None. FINDINGS: The oral and pharyngeal phases show satisfactory initiation and propagation with all modali ties tested. Normal mastication is seen with solid modalities tested. There is no evidence of penet ration or aspiration with any modality tested. No significant pharyngeal residue was appreciated. IMPRESSION: Unremarkable deglutition study. Please refer to speech therapist notes for further detai ls if necessary.
--- NOTE | 2019-06-21 14:27 | P.PN ---
Subjective Progress Note Date: 06/21/19 This is a 69-year-old female who presented to the emergency room complaining of generalized weakness. The patient states that the weakness has been ongoing for about a week or 2 and she has progressively gotten worse. She also states that she has had a significant weight loss in the last 5 days. Patient states that every time she eats she feels bloated and has increased abdominal pain. Patient continues to complain of mild diffuse abdominal pain. She denies vomiting however she does feel nauseous. Patient denies fever or chills. Patient does complain of diarrhea. Patient states that her abdominal pain has been going on for a couple months. She was seen by her primary care doctor who prescribed Bentyl to help with her appetite and ordered a CT angiogram of the abdomen and pelvis that was done in April. The results of the CT angiogram shows stable thoracic aortic aneurysm, aortoiliac stent graft within the abdomen is patent throughout its course. An attenuated external iliac artery to provide blood flow to the level of the common femoral arteries, extensive ball use emphysmato us change, asymmetric function of the kidneys with atopic right kidney functioning better than the left. Patient had a CT of the abdomen and pelvis without contrast performed 06/18/2019 impression: 1. Air-fluid level within the urinary bladder, correlate for colovesical fistula. 2. Exam is limited due to Static appearance. 3. Aortic aneurysm stent repair evident. Patient denies any dysuria or frequency. Patient has significant history of peripheral vascular disease with a aortic aneurysm repair with stent, coronary artery disease with stent placement 2010, right lower extremity DVT, itch or fibrillation, COPD, acid reflux, GI bleed, hypertension, sleep apnea, hepatitis C, hyperlipidemia, hyperthyroid, restless leg syndrome. 06/20: Patient continues to have decreased appetite feels bloated and nauseous with eating. Patient's unable to tolerate meals. CT from April was revi ewed no evidence of mesenteric ischemia noted. Patient was seen by surgery, colonoscopy was reviewed from October no fistula was noted however the scope was incomplete due to incomplete prep. The scope was advanced to the proximal transverse colon. Urology has seen the patient and ordered a CT cystogram. Due to patient's elevated creatinine patient is unable to have a CT angiogram performed. May consider a CAT scan with oral contrast at barium enema to highlight the bowels. Concerned with possible ischemic bowel. Kidney function showed minimal improvement BUN 30, creatinine 1.68, potassium 3.4. Leukocytosis has increased to be WBC 18.4. Pre-albumin is 14 06/21: Patient denies any nausea or vomiting. Patient complains of a stomach ache and pain in the left lower quadrant. She also complains of food getting stuck in her throat. She states she has no appetite. Regarding diarrhea, she states she is having 2 loose stools daily. Lactic acid from yesterday was 1.3. C. difficile toxin negative. She remains afebrile, heart rate 70, blood pressure 146/66, pulse ox 96% on room air. 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 Urology has been following the patient and colovesical fistula appears to be ruled out as patient does not have classic symptoms. Urology is planning for cystoscopy in one to 2 weeks as an outpatient. CAT scan of the abdomen and pelvis without contrast completed yesterday revealed no sign of mechanical bowel obstruction. There is possible wall thickening of the sigmoid colon that could relate to some colitis that is a change compared to recent exam 2 days ago. Abdominal aortic aneurysm unchanged. No renal obstruction. Atherosclerotic vascular disease. Barium swallow and enema have been ordered for today. Patient underwent barium swallow which is reported as unremarkable. Patient will need to wait for all barium to completely clear, nothing by mouth for 24 hours prior to the barium enema and bowel prep the day before barium enema. Abdominal x-ray ordered for morning. Review of Systems Constitutional: Reports anorexia, Reports fatigue, Reports malaise, Reports poor appetite, Reports weight loss, reports back pain Ears, nose, mouth and throat: Reports dysphagia Cardiovascular: Reports dyspnea on exertion, Denies chest pain, Denies irregular heart beat, Denies leg edema, Denies palpitations, Denies rapid heart beat Respiratory: Reports sleep apnea, Denies cough, Denies dyspnea Gastrointestinal: Reports abdominal pain, Reports bloating, reports diarrhea, denies constipation Reports early satiety, Reports loss of appetite, denies nausea, Denies hematemesis, Denies melena, Denies vomiting Genitourinary: Denies dysuria, Denies hematuria, Denies urgency, Denies urinary frequency Musculoskeletal: Denies myalgias Integumentary: Denies pruritus, Denies rash Neurological: Denies numbness, Denies weakness Psychiatric: Denies anxiety, Denies depression Endocrine: Denies fatigue, Denies weight change Objective - Vital Signs Vital signs: Vital Signs Temp 97.4 F L 06/21/19 04:00 Pulse 70 06/21/19 04:00 Resp 18 06/21/19 04:00 BP 146/66 06/21/19 04:00 Pulse Ox 96 06/21/19 04:00 Intake & Output 06/20/19 06/21/19 06/21/19 18:59 06:59 18:59 Intake Total 600 450 Output Total 100 Balance 500 450 Intake: Intake, IV Titration 600 Amount Sodium Chloride 0.9% 1, 600 000 ml @ 75 mls/hr IV . [id number] [facility] Rx#:[id number] Oral 450 Output: Urine 100 Other: # Voids 2 2 # Bowel Movements 4 - Exam General Appearance: Alert, cooperative, no distress, appears older stated age, severe cachectic BMI is 12 Neck HEENT: no lymphadenopathy, no thyroid enlargement, no carotid bruits. Lungs: Clear to auscultation without crackles or wheezes no rhonchi, no deformity. Chest Wall: Chest wall normal expansion with deep inspiration no tenderness and no deformity was found on exam, no costochondral pain or discomfort. Heart: Regular rate and rhythm, S1, S2 normal, no murmur, rub or gallop. Back: Symmetric, no curvature, ROM normal, no CVA tenderness. Abdomen: Hyperactive bowel sounds, firm able to palpate stool, left lower quadrant tender with palpation no rebound or rigidity, no hepatosplenomegaly. Extremities: Extremities normal, atraumatic, no cyanosis or edema. Pulses: 2+ and symmetric. Skin: Skin color pale, texture dry, tugor decreased no rashes or lesions. Neurologic: Alert oriented x3 cranial nerves II through XII intact, no motor deficit, no abnormal balance or gait - Labs CBC & Chem 7: 06/20/19 05:57 06/20/19 05:57 Assessment and Plan Plan: 1. Failure to thrive related to dysphagia and abdominal pain. Continue Bentyl, consult surgery. Ensure 3 times a day with meals. CT of the abdomen and pelvis, barium swallow as above. Barium enema has been ordered. 2. Abdominal pain rule out mesenteric ischemia. BUN and creatinine has improved slightly however still unable to have CT angiogram. Previous CT angiogram of abdomen and pelvis performed 04/2019 was reviewed no mesenteric ischemia noted. 3. Colovesical fistula essentially ruled out by urology. Urology plans for outpatient cystoscopy. 4. Acute kidney injury on CKD. Continue with hydration, monitor kidney function, limit nephrotoxic medications. 5. Leukocytosis rule out colitis. Continue Empiric antibiotics initiated ceftriaxone 1 g every 12 hours. Discontinue oral vancomycin. Lomotil discontinued. Discontinue MiraLAX 6. Dysphagia. Swallow evaluation and barium swallow negative. 7. Hypokalemia. Continue to monitor potassium, replace Potassium per protocol 8. Coronary artery disease, PCI with stent in 2010. Continue Eliquis, aspirin 9. Peripheral vascular disease, aortic aneurysm repair with stents. Continue Eliquis, 10. Takosubu syndrome in 2016, stable 11. Hepatitis C, stable 12. COPD Continue Ventolin, DuoNeb 13. History of DVT right lower leg. 14. Hypertension. Continue Norvasc, Bystolic, 15. Atrial fibrillation. Consult cardiology Continue Eliquis, 16. GERD. Continue Pepcid 20 mg 17. Depression, recurrent. Continue Cymbalta 18. Hypothyroidism. Continue Synthroid 20 mcg by mouth daily 19. Hyperlipidemia. Pravastatin 80 mg by mouth at bedtime 20. Restless leg syndrome. Continue Mirapex 21. Constipation. Barium enema 22. GI prophylaxis. Continue Pepcid 20 mg by mouth 23. DVT prophylaxis. Continue aspirin, Eliquis Prognosis: guarded CODE STATUS: Full code Discharge plan: [facility] Impression and plan of care have been directed as dictated by the signing physician. Coby Joaquin nurse practitioner acting as scribe for signing physician.
--- NOTE | 2019-06-21 15:33 | CDI ---
Documentation Clarification Form Date: 06/21/2019 3:18:14 PM From: Ines Carter RN CCDS Phone: [phone] Admit Date: 06/20/2019 9:08:00 AM Patient Name: Nafisa Santiago Visit Number: [id number] Discharge Date: ATTENTION: The Clinical Documentation Specialists (CDI) and [facility] Coding Staff appreciate your assistance in clarifying documentation. Please respond to the clarification below the line at the bottom and electronically sign. The CDI & [facility] Coding staff will review the response and follow-up if needed. Please note: Queries are made part of the Legal Health Record. If you have any questions, please contact the author of this message via ITS. Dr. Jose Weiss 69-year-old female presents to the ED with weakness, Cachectic with weight loss. 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 * Severe Protein-Calorie Malnutrition * Severe Malnutrition * Malnutrition, unspecified * Other condition, please specify * Unable to determine (Last Revision: February 2019) severe protein-calorie malnutrition MTDD
--- NOTE | 2019-06-21 15:45 | CDI ---
Documentation Clarification Form Date: 06/21/2019 3:33:20 PM From: Ines Carter RN CCDS Admit Date: 06/20/2019 9:08:00 AM Patient Name: Nafisa Santiago Visit Number: [id number] Discharge Date: ATTENTION: The Clinical Documentation Specialists (CDI) and [facility] Coding Staff appreciate your assistance in clarifying documentation. Please respond to the clarification below the line at the bottom and electronically sign. The CDI & [facility] Coding staff will review the response and follow-up if needed. Please note: Queries are made part of the Legal Health Record. If you have any questions, please contact the author of this message via ITS. Dr. Jose Weiss Buttock Stage 2 warm thin fragile erythema is documented in the Nursing assessment 06/21/19 History/Risk Factors: 69-year-old female presents to the ED with weakness, Cachectic with weight loss. Medical History Hepatitis C, Co Glucerna TID 220kcal and 10 gms of protein/ serving pd, Asthma, Clinical Indicators: Activity stiff gait, bed rest, per Nursing assessment 06/21/19 Muscle tone weak atrophy, fatigue mild with activity Location: Buttock Wound description: Warm, thin, fragile erythema Treatment: Glucerna TID 220kcal and 10 gms of protein/ serving Hydrocolloid Exuderm satin 2x2 ordered for stage 2 pressure injury 06/21/19 Sureprep no sting wipe ordered for stage 2 pressure injury 06/21/19 Consults: Dietary Severe Malnutrition Elements for accurate and compliant documentation of an ulcer: *The location/laterality of the ulcer *Etiology (decubitus/pressure, diabetic, PVD) *Stage I-IV, Unstageable, Suspected Deep Tissue Injury (To the deepest stage) *If the ulcer was present at admission (POA) or occurred after admission In your professional opinion, can you please clarify the diagnosis, location, laterality and whether present on admission (POA): * Stage 2 Pressure/Decubitus Ulcer (Partial thickness, loss of dermis, pink wound bed) * Unstageable * Other condition, please specify * Unable to determine Please indicate etiology of pressure ulcer (if known). (Last Revision: May 2017) Stage 2 Pressure/Decubitus Ulcer MTDD
[2019-06-21] MEDS: ATORVASTATIN 40 MG TAB PO SCH (21:13)
[2019-06-21] MEDS: PRAMIPEXOLE 0.125 MG TAB PO SCH (21:15)
[2019-06-21] MEDS: DICYCLOMINE 20 MG TAB PO SCH (21:51)
--- NOTE | 2019-06-21 21:52 | P.CONS ---
History of Present Illness - Reason for Consult Consult date: 06/21/19 Abdominal pain, dysphagia Requesting physician: Riri Bailey - Chief Complaint Weakness - History of Present Illness 69-year-old female with multiple medical comorbidities including peripheral vascular disease with aortic aneurysm status post stent placement, coronary ar matt disease, prior DVT, atrial fibrillation, COPD, GERD, hypertension, was a, hepatitis C, hyperlipidemia, hyperthyroidism, anxiety and depression and reported irritable bowel syndrome who presented to the hospital due to complaints of weakness. Patient states weakness had been worse over the 2 weeks prior to presentation. She also reports decreased oral intake and associated weight loss. The patient has had chronic symptoms which she attributes to irritable bowel syndrome. She describes the pain as diffuse across her abdomen worse in the periumbilical region. She describes it as sharp and constant and waxing and waning in intensity. She also describes esophageal dysphagia. Video swallow today was normal with no evidence of aspiration. She also underwent endoscopic evaluation in October/2018 with EGD significant only for a hiatal hernia and gastritis and incomplete colonoscopy secondary to poor prep. There've been concerns over possible air-fluid levels in the bladder however the patient has no symptoms of a colovesicular fistula. Plan is for a barium enema for further evaluation with concerns over thickening of the sigmoid colon on imaging. Review of Systems REVIEW OF SYSTEMS: CONSTITUTIONAL: Denies any fevers, chills, reports a pound weight loss prior to presentation and weakness and fatigue. CARDIOVASCULAR: Denies any chest pain, high or low blood pressures RESPIRATORY: Denies any shortness of breath, hemoptysis or cough. GENITOURINARY: No dysuria or hematuria. MUSCULOSKELETAL: No focal weakness reported. SKIN: Denies any new rashes or lesions, jaundice or pallor. PSYCHIATRIC: History of depression or anxiety. NEUROLOGY: Denies headache, denies any new focal deficits. EARS/NOSE/THROAT: No recent hearing change, congestion, nasal discharge or sore throat. EYES: No pain in eyes, discharge or change in vision. GASTROINTESTINAL: As per HPI. Past Medical History Past Medical History: Atrial Fibrillation, Asthma, Coronary Artery Disease (CAD), Chest Pain / Angina, COPD, Deep Vein Thrombosis (DVT), GERD/Reflux, GI Bleed, Hypertension, Liver Disease, Memory Impairment, Myocardial Infarction ([place]), Pneumonia, Respiratory Disorder, Sleep Apnea/CPAP/BIPAP, Vascular Disorder Additional Past Medical History / Comment(s): on 10/25/18 pt states was having pizza with family and food got stuck, pt had small amount of emesis. She went to bed and woke up to discover that she was incontinent of stool while she slept. Pt states that this has never happened.Patient continues to have difficulty swallowing like before. HEP C. Aortic aneurysm with stent-being monitored, Takosubu syndrome in 2016, R groin dissection/cardiac cath, recent bacteremia- blood cultures positive for veridans strep-completed antibiotics, bronchitis, home O2 at 3L/NC most of the time, LG without device-stable, DVT R leg, lower GI bleed, hepatitis C with Harvoni treatment, anemia with iron infusions x2, bilateral femoral head avascular necrosis, RLS, migraines, insomnia, constipation, overactive bladder, post menopausal bleed. Last Myocardial Infarction Date:: 07/2017 History of Any Multi-Drug Resistant Organisms: None Reported Past Surgical History: Bladder Surgery, Cholecystectomy, Heart Catheterization With Stent, Hysterectomy, Orthopedic Surgery Additional Past Surgical History / Comment(s): 11/28/17 lap albert, PCI with stent 2010, cardiac cath 07/2017-treat medically, common iliac artery stent 2005, exploratory lap, liver bx, R foot surgery d/t infection, R shoulder arthroscopic surgery, CAN, EGD, colonoscopy years ago, R leg varicose vein surgery, bladder suspension, eric cataract sx Past Anesthesia/Blood Transfusion Reactions: No Reported Reaction Date of Last Stent Placement:: 2010 Past Psychological History: Anxiety, Depression, Panic Disorder Additional Psychological History / Comment(s): PT RESIDES WITH HER SPOUSE WHO IS IN HIS 80'S AND IS NOT WELL. PT USES a walker. SHE NO LONGER DRIVES, FAMILY TAKES THEM TO THEIR APPTS. THEY HAVE VNA. pt stated has home 02 3 liters n/c, has cane/walker/wheel chair if needed. Smoking Status: Current every day smoker Past Alcohol Use History: None Reported Additional Past Alcohol Use History / Comment(s): She was a smoker starting in 1956. Patient states now she smokes e-cigarettes. Past Drug Use History: None Reported - Past Family History Brother(s) Family Medical History: Coronary Artery Disease (CAD), Myocardial Infarction ([place]) Father Additional Family Medical History / Comment(s): FROM CIRRHOSIS OF THE LIVER Mother Family Medical History: COPD Additional Family Medical History / Comment(s): FROM AAA, HAD HX of TB. Medications and Allergies Home Medications Medication Instructions Recorded Confirmed Type Sucralfate [Carafate] 1 gm PO AC-TID 12/27/13 06/18/19 History Pramipexole [Mirapex] 0.125 mg PO HS 09/12/14 06/18/19 History Tiotropium 18 Mcg/Puff [Spiriva] 1 cap INHALATION RT-BID 09/12/14 06/18/19 History DULoxetine HCL [Cymbalta] 60 mg PO BID 07/18/17 06/18/19 History Aspirin 81 mg PO DAILY chew 09/02/17 06/18/19 Rx Pravastatin Sodium [Pravachol] 80 mg PO HS #0 tab 09/02/17 06/18/19 Rx Dexlansoprazole [Dexilant] 60 mg PO DAILY 12/12/17 06/18/19 History Nitroglycerin Sl Tabs [Nitrostat] 0.4 mg SUBLINGUAL Q5M PRN 12/12/17 06/18/19 H istory guaiFENesin [Mucinex] 1,200 mg PO Q12H 12/12/17 06/18/19 History Albuterol Inhaler [Ventolin Hfa 1 - 2 puff INHALATION RT-Q6H PRN 10/08/18 06/18/19 History Inhaler] Butalb/APAP/Caff 50-325-40Mg 1 - 2 tab PO Q8H PRN 10/08/18 06/18/19 History [Fioricet 50-325-40] Calcium Carbonate/Vitamin D3 1 tab PO BID 10/08/18 06/18/19 History [Calcium 600-Vit D3 400 Caplet] Ipratropium-Albuterol Nebulize 3 ml INHALATION RT-QID 10/08/18 06/18/19 History [Duoneb 0.5 mg-3 mg/3 ml Soln] Topiramate [Topamax] 50 mg PO BID 10/08/18 06/18/19 History cycloSPORINE [Restasis] 1 drop BOTH EYES BID 10/08/18 06/18/19 History ALPRAZolam [Xanax] 0.5 mg PO TID PRN 02/14/19 06/18/19 History Levothyroxine Sodium [Synthroid] 25 mcg PO DAILY 02/28/19 06/18/19 History Multivitamins, Thera [Multivitamin 1 tab PO DAILY 02/28/19 06/18/19 History (formulary)] Nebivolol [Bystolic] 5 mg PO BID 02/28/19 06/18/19 History Apixaban [Eliquis] 2.5 mg PO BID #60 tablet 03/02/19 06/18/19 Rx Dicyclomine [Bentyl] 20 mg PO QID PRN tab 03/02/19 06/18/19 Rx Famotidine [Pepcid] 20 mg PO DAILY #30 tab 03/03/19 06/18/19 Rx Fesoterodine Fumarate [Toviaz] 8 mg PO DAILY 03/03/19 06/18/19 History Polyethylene Glycol 3350 [Miralax] 17 gm PO DAILY #30 packet 03/03/19 06/18/19 Rx amLODIPine [Norvasc] 5 mg PO DAILY #30 tab 03/03/19 06/18/19 Rx Sennosides-Docusate Sodium 2 tab PO DAILY 06/18/19 06/18/19 History [Senokot-S] Allergies Allergy/AdvReac Type Severity Reaction Status Date / Time naproxen sodium [From Aleve] Allergy Severe Anaphylaxis Verified 06/18/19 14:01 adhesive Allergy Rash/Hives Verified 06/18/19 14:01 cinnamon [Cinnamon] Allergy Dyspnea Verified 06/18/19 14:01 clindamycin Allergy Anaphylaxis Verified 06/18/19 14:01 codeine Allergy Nausea & Verified 06/18/19 14:01 Vomiting gentamicin [Gentamicin] Allergy SWELLING Verified 06/18/19 14:01 OF FACE W/ EYE DROPS paola Allergy Dyspnea Verified 06/18/19 14:01 Iodinated Contrast Media Allergy Dyspnea Verified 06/18/19 14:01 [Iodinated Contrast- Oral and IV Dye] latex Allergy Rash/Hives Verified 06/18/19 14:01 levothyroxine sodium Allergy Unknown Verified 06/18/19 14:01 [From Synthroid] losartan Allergy Unknown Verified 06/18/19 14:01 montelukast sodium Allergy Wheezing Verified 06/18/19 14:01 [From Singulair] pantoprazole sodium Allergy Abdominal Verified 06/18/19 14:01 [From Protonix] Pain Penicillins Allergy Rash/Hives Verified 06/18/19 14:01 red dye Allergy Abdominal Verified 06/18/19 14:01 Pain Sulfa (Sulfonamide Allergy Swelling Verified 06/18/19 14:01 Antibiotics) IN MOUTH sulfamethoxazole Allergy swelling Verified 06/18/19 14:01 [From Bactrim] tongue sulfanilamide Allergy Unknown Verified 06/18/19 14:01 trimethoprim [From Bactrim] Allergy Swelling Verified 06/18/19 14:01 venom-honey bee Allergy Dyspnea Verified 06/18/19 14:01 [bee venom (honey bee)] BANDAIDS Allergy Rash/Hives Uncoded 06/18/19 13:19 Dye for gallbladder scan. Allergy Anaphylaxis Uncoded 06/18/19 13:19 tomatoes AdvReac Abdominal Uncoded 06/18/19 13:19 Pain Physical Exam Vitals: Vital Signs Temp Pulse Pulse Resp BP Pulse Ox Pulse Ox 06/21/19 17:17 59 L 06/21/19 17:04 58 L 16 98 06/21/19 15:36 97.8 F 58 L 18 157/55 100 06/21/19 09:20 97 06/21/19 08:00 98 F 66 18 153/63 97 06/21/19 04:00 97.4 F L 70 18 146/66 96 06/21/19 00:00 97.6 F 75 18 129/64 97 Intake and Output 06/21/19 06/21/19 06/21/19 06:59 14:59 22:59 Intake Total 450 600 Balance 450 600 Intake: Intake, IV Titration 600 Amount Sodium Chloride 0.9% 1, 600 000 ml @ 75 mls/hr IV . [id number] [facility] Rx#:[id number] Oral 450 Other: Voiding Method Diaper Diaper Incontinent Incontinent # Voids 2 1 # Bowel Movements 4 1 Weight 35.2 kg On physical examination, patient appears comfortable in no apparent distress. HEAD: Normocephalic, atraumatic. EYES: No scleral icterus. No conjunctival injection. MOUTH: No lesions, tongue midline. NECK: Trachea midline, no gross abnormalities. CHEST: Decreased air entry bilaterally. HEART: S1-S2 appreciated. ABDOMEN: Soft, thin. Bowel sounds are positive. No organomegaly. No guarding or rigidity. EXTREMITIES: No pedal edema. SKIN: No rashes, no jaundice. NEUROLOGIC: Alert and oriented x3. No focal deficits. Results CBC & Chem 7: 06/20/19 05:57 06/20/19 05:57 Labs: Abnormal Lab Results - Last 24 Hours (Table) 06/21/19 Range/Units 02:45 Stool Lactoferrin POSITIVE H (NEGATIVE) Microbiology - Last 24 Hours (Table) 06/21/19 02:45 Stool Culture - Preliminary Stool CT scan - abdomen: report reviewed (Abdominal aortic aneurysm and sigmoid colitis seen on CT abdomen) Assessment and Plan (1) Abdominal pain Narrative/Plan: 69-year-old female with multiple medical comorbidities including which she describes as irritable bowel syndrome and chronic abdominal pain. Last evaluation with endoscopy was in 10/2018 with a normal EGD except for findings of some mild gastritis and a hiatal hernia and an incomplete colonoscopy due to poor prep. Recent computed tomography scan of the abdomen was concerning for possible thickening of the sigmoid colon and the patient is scheduled to undergo a barium enema. Unknown etiology of patient's pain, she is previously been seen by the psychiatry service and evaluated for possible eating disorder, there may also be a functional component to her pain, she also describes irritable bowel syndrome and symptoms of reflux. Current Visit: Yes Status: Acute Code(s): R10.9 - UNSPECIFIED ABDOMINAL PAIN SNOMED Code(s): 35485998 (2) GERD (gastroesophageal reflux disease) Current Visit: No Status: Acute Code(s): K21.9 - GASTRO-ESOPHAGEAL REFLUX DI SEASE WITHOUT ESOPHAGITIS SNOMED Code(s): 134874768 Plan: Supportive care Okay for diet as tolerated We'll increase Pepcid to twice daily, Protonix is listed as an ALLERGY for the patient's We'll change dicyclomine to 3 times a day around the clock instead of as needed Barium enema is planned Video swallow reviewed with no evidence of aspiration or dysfunction Thank you for allowing us to participate in the care of this patient we will co libertad to follow
[2019-06-22] MEDS: SODIUM CHLORIDE 0.9% 1,000 ML IV SCH ×2 (04:54→21:33)
[2019-06-22] MEDS: HYDROcodone/APAP 5-325MG 1 EACH TAB PO PRN (05:36)
[2019-06-22] MEDS: LEVOTHYROXINE 25 MCG TAB PO SCH (05:36)
[2019-06-22 07:58] LABS: HCT 31.7 % (34.0-46.0); HGB 10.2 gm/dL (11.4-16.0); MCH 30.7 pg (25.0-35.0); MCHC 32.3 g/dL (31.0-37.0); MCV 94.9 fL (80.0-100.0); Mean Platelet Volume 6.7; Platelet Count 144 k/uL (150-450); RBC 3.34 m/uL (3.80-5.40); RDW 14.8 % (11.5-15.5); WBC 8.2 k/uL (3.8-10.6)
[2019-06-22 08:02] LABS: Calcium 7.5 mg/dL (8.4-10.2)
[2019-06-22 08:07] LABS: Potassium 2.7 mmol/L (3.5-5.1)
[2019-06-22] MEDS: NEBIVOLOL 5 MG TAB PO SCH ×2 (08:34→21:32)
[2019-06-22] MEDS: DICYCLOMINE 20 MG TAB PO SCH (08:34)
[2019-06-22] MEDS: cycloSPORINE 0.05% OPHTH 0.4 ML DROPERETTE BOTH EYES SCH ×2 (08:34→21:32)
[2019-06-22] MEDS: amLODIPine 5 MG TAB PO SCH (08:35)
[2019-06-22] MEDS: ASPIRIN 81 MG PO SCH (08:35)
[2019-06-22] MEDS: DULoxetine HCL 60 MG CAPSULE.DR PO SCH ×2 (08:35→21:32)
[2019-06-22] MEDS: MULTIVITAMINS, THERA 1 EACH TAB PO SCH (08:35)
[2019-06-22] MEDS: APIXABAN 2.5 MG TABLET PO SCH (08:35)
[2019-06-22] MEDS: CALCIUM CARB-VIT D 500MG-200UN 1 EACH TAB PO SCH ×2 (08:35→21:32)
[2019-06-22] MEDS ORDERED: POTASSIUM CHLORIDE ER 20 MEQ TAB.ER PO SCH (09:00)
[2019-06-22] MEDS ORDERED: FAMOTIDINE 20 MG TAB PO SCH (09:00)
[2019-06-22] MEDS: POTASSIUM CHLORIDE 10 MEQ in WATER FOR INJECTION 1 100ML.BAG IVPB SCH ×7 (09:04→23:40)
--- NOTE | 2019-06-22 09:53 | XR ---
EXAMINATION TYPE: XR abdomen 2V DATE OF EXAM: 06/22/2019 6:57 AM CLINICAL HISTORY: Left lower quadrant pain TECHNIQUE: Single supine KUB image of the abdomen is obtained. COMPARISON: CT abdomen pelvis dated 06/20/2019. FINDINGS: Aortobiiliac vascular stent graft is noted. No dilated large or small bowel is seen. Contra st extends through the majority of the large bowel and air are seen in the rectum. Lung bases are ove rall well aerated. Degenerative changes of the spine and hips. Surgical clips in the inguinal regions . IMPRESSION: Nonobstructive bowel gas pattern. Oral contrast from a prior exam and extensive the major ity the large bowel and air is seen within the rectum.
[2019-06-22] MEDS: IPRATROPIUM-ALBUTEROL 3 ML NEB INHALATION SCH ×3 (11:09→19:43)
[2019-06-22] MEDS: ALPRAZolam 0.5 MG TAB PO PRN (11:56)
--- NOTE | 2019-06-22 13:45 | P.PN ---
Subjective Progress Note Date: 06/22/19 Patient seen and examined at bedside. He lunch during my exam. No vomiting. Abdominal x-ray was reviewed. Objective - Vital Signs Vital signs: Vital Signs Temp 98.1 F 06/22/19 11:58 Pulse 94 06/22/19 11:58 Resp 17 06/22/19 11:58 BP 148/65 06/22/19 11:58 Pulse Ox 94 L 06/22/19 11:58 Intake & Output 06/21/19 06/22/19 06/22/19 18:59 06:59 18:59 Intake Total 600 2014 Balance 600 2014 Weight 35.2 kg 35.4 kg Intake: Intake, IV Titration 600 725 Amount Sodium Chloride 0.9% 1, 600 725 000 ml @ 75 mls/hr IV . [id number] [facility] Rx#:[id number] Oral 1290 Other: Voiding Method Diaper Diaper Diaper Incontinent Incontinent Incontinent # Voids 1 1 # Bowel Movements 1 - Constitutional General appearance: Present: cooperative - Gastrointestinal Gastrointestinal Comment(s): Soft, improving tenderness, nondistended, no rebound, no guarding - Labs CBC & Chem 7: 06/22/19 07:12 06/22/19 07:12 Labs: Abnormal Lab Results - Last 24 Hours (Table) 06/22/19 06/22/19 Range/Units 07:12 07:12 RBC 3.34 L (3.80-5.40) m/uL Hgb 10.2 L (11.4-16.0) gm/dL Hct 31.7 L (34.0-46.0) % Plt Count 144 L (150-450) k/uL Potassium 2.7 L* (3.5-5.1) mmol/L Chloride 112 H (98-107) mmol/L Carbon Dioxide 21 L (22-30) mmol/L BUN 19 H (7-17) mg/dL Creatinine 1.63 H (0.52-1.04) mg/dL Calcium 7.5 L (8.4-10.2) mg/dL Microbiology - Last 24 Hours (Table) 06/21/19 02:45 Stool Culture - Preliminary Stool Assessment and Plan (1) Abdominal pain Narrative/Plan: 69-year-old female with abdominal pain and air-fluid level in urinary bladder - The patient does not appear to have any urinary symptoms associated with colovesical fistula. Urine is not foul-smelling and does not contain stool. Patient was evaluated by urology with plan for outpatient cystoscopy. - I did discuss this case with the admitting service. The patient is known to have vascular disease. She is noted to have an aortoiliac stent. Lactic acid was noted at 1.3. She continues to be hemodynamically stable with no tachycardic episodes and no hypotensive episodes. She is not showing clinical signs of ischemic bowel. Continue supportive care. - Overall, patient is significantly cachectic with a BMI of 12 and is also noted to have significant vascular disease requiring aortoiliac stent placement. Any emergent surgical procedure would likely have a poor prognosis. - Will follow pending imaging - We will continue to follow and make recommendations based on the patient's clinical progress. Current Visit: Yes Status: Acute Code(s): R10.9 - UNSPECIFIED ABDOMINAL PAIN SNOMED Code(s): 05576910
[2019-06-22 15:54] VITALS: BMI 13.8
[2019-06-22] MEDS: ATORVASTATIN 40 MG TAB PO SCH (21:32)
[2019-06-22] MEDS: PRAMIPEXOLE 0.125 MG TAB PO SCH (21:33)
--- NOTE | 2019-06-22 21:47 | P.PN ---
Subjective Progress Note Date: 06/22/19 Principal diagnosis: Abdominal pain, GERD Patient seen lying in bed, no acute events per nursing. She is somewhat somnolent compared to yesterday. Objective - Vital Signs Vital signs: Vital Signs Temp 98.1 F 06/22/19 11:58 Pulse 94 06/22/19 11:58 Resp 17 06/22/19 11:58 BP 148/65 06/22/19 11:58 Pulse Ox 94 L 06/22/19 11:58 Intake & Output 06/21/19 06/22/19 06/22/19 18:59 06:59 18:59 Intake Total 600 2014 Balance 600 2014 Weight 35.2 kg 35.4 kg Intake: Intake, IV Titration 600 725 Amount Sodium Chloride 0.9% 1, 600 725 000 ml @ 75 mls/hr IV . [id number] [facility] Rx#:[id number] Oral 1290 Other: Voiding Method Diaper Diaper Diaper Incontinent Incontinent Incontinent # Voids 1 1 # Bowel Movements 1 - Exam On physical examination, patient appears comfortable in no apparent distress. HEAD: Normocephalic, atraumatic. EYES: No scleral icterus. No conjunctival injection. MOUTH: No lesions, tongue midline. NECK: Trachea midline, no gross abnormalities. CHEST: No respiratory distress. ABDOMEN: Soft, thin. Bowel sounds are positive. No organomegaly. No guarding or rigidity. EXTREMITIES: No pedal edema. SKIN: No rashes, no jaundice. NEUROLOGIC: Alert and oriented but somnolent. - Labs CBC & Chem 7: 06/22/19 07:12 06/22/19 07:12 Labs: Abnormal Lab Results - Last 24 Hours (Table) 06/22/19 06/22/19 Range/Units 07:12 07:12 RBC 3.34 L (3.80-5.40) m/uL Hgb 10.2 L (11.4-16.0) gm/dL Hct 31.7 L (34.0-46.0) % Plt Count 144 L (150-450) k/uL Potassium 2.7 L* (3.5-5.1) mmol/L Chloride 112 H (98-107) mmol/L Carbon Dioxide 21 L (22-30) mmol/L BUN 19 H (7-17) mg/dL Creatinine 1.63 H (0.52-1.04) mg/dL Calcium 7.5 L (8.4-10.2) mg/dL Microbiology - Last 24 Hours (Table) 06/21/19 02:45 Stool Culture - Preliminary Stool Assessment and Plan (1) Abdominal pain Narrative/Plan: 69-year-old female with multiple medical comorbidities including which she describes as irritable bowel syndrome and chronic abdominal pain. Last evaluation with endoscopy was in 10/2018 with a normal EGD except for findings of some mild gastritis and a hiatal hernia and an incomplete colonoscopy due to poor prep. Recent computed tomography scan of the abdomen was concerning for possible thickening of the sigmoid colon and the patient is scheduled to undergo a barium enema. Unknown etiology of patient's pain, she is previously been seen by the psychiatry service and evaluated for possible eating disorder, there may also be a functional component to her pain, she also describes irritable bowel syndrome and symptoms of reflux. Current Visit: Yes Status: Acute Code(s): R10.9 - UNSPECIFIED ABDOMINAL PAIN SNOMED Code(s): 11196435 (2) GERD (gastroesophageal reflux disease) Current Visit: No Status: Acute Code(s): K21.9 - GASTRO-ESOPHAGEAL REFLUX DISEASE WITHOUT ESOPHAGITIS SNOMED Code(s): 432460696 Plan: Supportive care Okay for diet as tolerated We'll increase Pepcid to twice daily, Protonix is listed as an ALLERGY for the patient's Dicyclomine discontinued today for concerns due to somnolence, can restart as needed if mentation is improved tomorrow Video swallow reviewed with no evidence of aspiration or dysfunction Tentative plans for EGD with PEG tube placement tomorrow, however due to absence of findings of oropharyngeal dysphagia or abnormalities on video swallow patient and family have been informed that tube feedings will likely not be covered by insurance, we'll proceed if they are in agreement with the risks, benefits and side effects as well as all issues concerning insurance and coverage Thank you for allowing us to participate in the care of this patient we will con tinue to follow
[2019-06-22] MEDS: MORPHINE SULFATE 2 MG/ML SYRINGE IVP PRN (22:06)
[2019-06-22] MEDS ORDERED: Potassium Replacement Protocol 1 EACH MISC MISCELLANE PRN (23:04)
[2019-06-23] MEDS: POTASSIUM CHLORIDE 10 MEQ in WATER FOR INJECTION 1 100ML.BAG IVPB SCH ×7 (00:22→21:26)
[2019-06-23] MEDS: LEVOTHYROXINE 25 MCG TAB PO SCH (05:18)
[2019-06-23] MEDS: IPRATROPIUM-ALBUTEROL 3 ML NEB INHALATION SCH ×4 (07:57→20:06)
[2019-06-23 08:39] LABS: Basophils % (A) 0 %; Eosinophils # (A) 0.2 k/uL (0-0.7); Eosinophils % (A) 3 %; HCT 33.6 % (34.0-46.0); Lymphocytes # (A) 1.3 k/uL (1.0-4.8); Lymphocytes % (A) 17 %; MCH 30.8 pg (25.0-35.0); MCHC 32.7 g/dL (31.0-37.0); MCV 94.2 fL (80.0-100.0); Mean Platelet Volume 6.9; Monocytes # (A) 0.3 k/uL (0-1.0); Monocytes % (A) 4 %; Neutrophils # (A) 5.3 k/uL (1.3-7.7); Neutrophils % (A) 72 %; Platelet Count 151 k/uL (150-450); RBC 3.57 m/uL (3.80-5.40); RDW 14.9 % (11.5-15.5); WBC 7.3 k/uL (3.8-10.6)
[2019-06-23 09:22] LABS: Albumin 2.3 g/dL (3.5-5.0); Calcium 7.6 mg/dL (8.4-10.2); Potassium 3.5 mmol/L (3.5-5.1); Total Bilirubin 0.4 mg/dL (0.2-1.3); Total Protein 4.6 g/dL (6.3-8.2)
[2019-06-23] MEDS: amLODIPine 5 MG TAB PO SCH (10:28)
[2019-06-23] MEDS: CALCIUM CARB-VIT D 500MG-200UN 1 EACH TAB PO SCH ×2 (10:29→21:27)
[2019-06-23] MEDS: cycloSPORINE 0.05% OPHTH 0.4 ML DROPERETTE BOTH EYES SCH ×2 (10:32→21:28)
[2019-06-23] MEDS: DULoxetine HCL 60 MG CAPSULE.DR PO SCH ×2 (10:33→21:28)
[2019-06-23] MEDS: NEBIVOLOL 5 MG TAB PO SCH ×2 (10:34→21:28)
[2019-06-23] MEDS: MULTIVITAMINS, THERA 1 EACH TAB PO SCH ×2 (10:34→11:10)
[2019-06-23] MEDS: FAMOTIDINE 20 MG TAB PO SCH (10:35)
[2019-06-23] MEDS: HYDROcodone/APAP 5-325MG 1 EACH TAB PO PRN (10:46)
[2019-06-23] MEDS: ASPIRIN 81 MG PO SCH (10:52)
[2019-06-23] MEDS ORDERED: Potassium Replacement Protocol 1 EACH MISC MISCELLANE PRN (13:56)
[2019-06-23] MEDS: SODIUM CHLORIDE 0.9% 1,000 ML IV SCH ×2 (14:02→22:56)
--- NOTE | 2019-06-23 15:45 | P.PN ---
Subjective Progress Note Date: 06/22/19 Principal diagnosis: Failure to thrive, abdominal pain, colovesical fistula, acute kidney injury, leukocytosis, dysphagia, history of coronary disease, peripheral arterial disease and hepatitis C This is a 69-year-old female who presented to the emergency room complaining of generalized weakness. The patient states that the weakness has been ongoing for about a week or 2 and she has progressively gotten worse. She also states that she has had a significant weight loss in the last 5 days. Patient states that every time she eats she feels bloated and has increased abdominal pain. Patient continues to complain of mild diffuse abdominal pain. She denies vomiting however she does feel nauseous. Patient denies fever or chills. Patient does complain of diarrhea. Patient states that her abdominal pain has been going on for a couple months. She was seen by her primary care doctor who prescribed Bentyl to help with her appetite and ordered a CT angiogram of the abdomen and pelvis that was done in April. The results of the CT angiogram shows stable thoracic aortic aneurysm, aortoiliac stent graft within the abdomen is patent throughout its course. An attenuated external iliac artery to provide blood flow to the level of the common femoral arteries, extensive ball use emphysmatous change, asymmetric function of the kidneys with atopic right kidney functioning better than the left. Patient had a CT of the abdomen and pelvis without contrast performed 06/18/2019 impression: 1. Air-fluid level within the urinary bladder, correlate for colovesical fistula. 2. Exam is limited due to Static appearance. 3. Aortic aneurysm stent repair evident. Patient denies any dysuria or frequency. Patient has significant history of peripheral vascular disease with a aortic aneurysm repair with stent, coronary artery disease with stent placement 2010, right lower extremity DVT, itch or fibrillation, COPD, acid reflux, GI bleed, hypertension, sleep apnea, hepatitis C, hyperlipidemia, hyperthyroid, restless leg syndrome. 06/20: Patient continues to have decreased appetite feels bloated and nauseous with eating. Patient's unable to tolerate meals. CT from April was reviewed no evidence of mesenteric ischemia noted. Patient was seen by surgery, colonoscopy was reviewed from October no fistula was noted however the scope was incomplete due to incomplete prep. The scope was advanced to the proximal transverse colon. Urology has seen the patient and ordered a CT cystogram. Due to patient's elevated creatinine patient is unable to have a CT angiogram performed. May consider a CAT scan with oral contrast at barium enema to highlight the bowels. Concerned with possible ischemic bowel. Kidney function showed minimal improvement BUN 30, creatinine 1.68, potassium 3.4. Leukocytosis has increased to be WBC 18.4. Pre-albumin is 14 06/21: Patient denies any nausea or vomiting. Patient complains of a stomach ache and pain in the left lower quadrant. She also complains of food getting stuck in her throat. She states she has no appetite. Regarding diarrhea, she states she is having 2 loose stools daily. Lactic acid from yesterday was 1.3. C. difficile toxin negative. She remains afebrile, heart rate 70, blood pressure 146/66, pulse ox 96% on room air. pvc monitor is sinus rhythm. Urology has been following the patient and colovesical fistula appears to be ruled out as patient does not have classic symptoms. Urology is planning for cystoscopy in one to 2 weeks as an outpatient. CAT scan of the abdomen and pelvis without contrast completed yesterday revealed no sign of mechanical bowel obstruction. There is possible wall thickening of the sigmoid colon that could relate to some colitis that is a change compared to recent exam 2 days ago. Abdominal aortic aneurysm unchanged. No renal obstruction. Atherosclerotic vascular disease. Barium swallow and enema have been ordered for today. Patient underwent barium swallow which is reported as unremarkable. Patient will need to wait for all barium to completely clear, nothing by mouth for 24 hours prior to the barium enema and bowel prep the day before barium enema. Abdominal x-ray ordered for morning. 06/22: Family wants PEG tube, so far testing are negative for any major finding specially cancer at this point, the possibility of fistula was excluded still will be going for cystoscopy as an outpatient. We'll consult GI again for possible PEG tube an EGD, Also the idea of eating disorders with proton apparently patient seen psychiatrist and psychologist regularly for it no rehab were constantly was proton will ask social work her to help patient specially when goes to rehab if has PEG tube are without PEG tube to have the continue the off psychiatry and psychology service afterward. Objective - Vital Signs Vital signs: Vital Signs Temp 97.7 F 06/22/19 21:00 Pulse 60 06/22/19 21:00 Resp 20 06/22/19 21:00 BP 156/61 06/22/19 21:00 Pulse Ox 94 L 06/22/19 11:58 Intake & Output 06/22/19 06/22/19 06/23/19 06:59 18:59 06:59 Intake Total 2014 300 Balance 2014 300 Weight 35.4 kg 35.4 kg Intake: Intake, IV Titration 725 300 Amount Potassium Chloride 10 meq 300 In Water For Injection 1 100ml.bag @ 100 mls/hr IVPB Q1HR [facility] Rx#: [id number] Sodium Chloride 0.9% 1, 725 000 ml @ 75 mls/hr IV . [id number] [facility] Rx#:[id number] Oral 1290 Other: Voiding Method Diaper Bedside Commode Incontinent Diaper Incontinent # Voids 1 - Exam CONSTITUTIONAL: Look very sick had lost a lot of weight, no acute respiratory distress. EYES: No icterus sclerae, no conjunctivitis. EARS, NOSE, MOUTH, THROAT, and FACE: No sore throat, lymphadenopathy, carotid bruits or deformity. RESPIRATORY: No SOB cough or wheezes. CARDIOVASCULAR: No CP, Palpitation, PND, Orthopnea, or angina. GASTROINTESTINAL: Slight abdominal pain with nausea and no further dysphagia mild diarrhea per patient complain not evidence on nursing care GENITOURINARY: Negative for Hematuria or UTI, no kidney stones. INTEGUMENT/BREAST: Negative for any muscular injury with mild osteoarthritis.. HEMATOLOGIC/LYMPHATIC: Negative for bleed or purpura. MUSCULOSKELTAL: Negative for Myalgia or arthralgia. NEURLOGICAL: No LOC, Sz or syncope, blurred vision dizziness or abnormality.. BEHAVIORAL/PSYCH: Negative. ENDOCRINE: Negative. General Appearance: Alert, cooperative, no distress, appears stated age. Neck HEENT: Supple, no lymphadenopathy, no thyroid enlargement, no carotid bruits. Lungs: Decreased breath some bilateral fine rhonchi past mild expiratory wheezes Chest Wall: Decreased expansion with deep inspiration no tenderness and no deformity was found on exam, no costochondral pain or discomfort. Heart: Regular rate and rhythm, S1, S2 normal, no murmur, rub or gallop. Back: Severe scoliosis with L-spine discomfort Abdomen: Soft positive bowel sounds slight discomfort in the mid epigastric and mid abdominal region area not able to feel any masses no rebound or rigidity Extremities: Extremities normal, atraumatic, no cyanosis or edema. Pulses: 2+ and symmetric. Skin: Skin color, texture, tugor normal, no rashes or lesions. Neurologic: Alert oriented x3 cranial nerves II through XII intact, no motor deficit, no abnormal balance or gait. - Labs CBC & Chem 7: 06/23/19 08:22 06/23/19 08:22 Labs: Abnormal Lab Results - Last 24 Hours (Table) 06/22/19 06/22/19 06/22/19 Range/Units 07:12 07:12 21:43 RBC 3.34 L (3.80-5.40) m/uL Hgb 10.2 L (11.4-16.0) gm/dL Hct 31.7 L (34.0-46.0) % Plt Count 144 L (150-450) k/uL Potassium 2.7 L* 3.3 L (3.5-5.1) mmol/L Chloride 112 H (98-107) mmol/L Carbon Dioxide 21 L (22-30) mmol/L BUN 19 H (7-17) mg/dL Creatinine 1.63 H (0.52-1.04) mg/dL Calcium 7.5 L (8.4-10.2) mg/dL Assessment and Plan Plan: 1. Failure to thrive related to dysphagia and abdominal pain. No finding on testing, swallow evaluation came back negative, long talk with the family es pecially the daughter was start about the possibility of eating disorders but still insists of having her mom go for PEG tube for artificial feeding and if the mom is agreeable to it will be arranged with GI as a trial. 2. Abdominal pain no mesenteric ischemia was found no fistula the finding of s uspicious of colitis with no symptoms to support at that this point patient is doing slightly better so far 3. Colovesical fistula essentially ruled out by urology. Urology plans for outpatient cystoscopy. Radiology and testing had excluded as a possibility. 4. Acute kidney injury on CKD. Continue with hydration, monitor kidney function, limit nephrotoxic medications. 5. Leukocytosis rule out colitis. Better and so far improve on current management. 6. Dysphagia. Swallow evaluation and barium swallow negative. 7. Hypokalemia. Continue to monitor potassium, replace Potassium per protocol 8. Coronary artery disease, PCI with stent in 2010. Continue Eliquis, aspirin 9. Peripheral vascular disease, aortic aneurysm repair with stents. Continue Eliquis, 10. Takosubu syndrome in 2016, stable still on medication. 11. Hepatitis C, stable 12. COPD Continue Ventolin, DuoNeb 13. History of DVT right lower leg. 14. Hypertension. Continue Norvasc Bystolic, 15. Atrial fibrillation. Consult cardiology Continue Eliquis, 16. GERD. Continue Pepcid 20 mg 17. Depression, recurrent. Continue Cymbalta 18. Hypothyroidism. Continue Synthroid 20 mcg by mouth daily 19. Hyperlipidemia. Pravastatin 80 mg by mouth at bedtime 20. Restless leg syndrome. Continue Mirapex 21. Constipation. Barium enema
--- NOTE | 2019-06-23 15:50 | P.PN ---
Subjective Progress Note Date: 06/23/19 Principal diagnosis: Failure to thrive, abdominal pain, colovesical fistula, acute kidney injury, leukocytosis, dysphagia, history of coronary disease, peripheral arterial disease and hepatitis C This is a 69-year-old female who presented to the emergency room complaining of generalized weakness. The patient states that the weakness has been ongoing for about a week or 2 and she has progressively gotten worse. She also states that she has had a significant weight loss in the last 5 days. Patient states that every time she eats she feels bloated and has increased abdominal pain. Patient continues to complain of mild diffuse abdominal pain. She denies vomiting however she does feel nauseous. Patient denies fever or chills. Patient does complain of diarrhea. Patient states that her abdominal pain has been going on for a couple months. She was seen by her primary care doctor who prescribed Bentyl to help with her appetite and ordered a CT angiogram of the abdomen and pelvis that was done in April. The results of the CT angiogram shows stable thoracic aortic aneurysm, aortoiliac stent graft within the abdomen is patent throughout its course. An attenuated external iliac artery to provide blood flow to the level of the common femoral arteries, extensive ball use emphysmatous change, asymmetric function of the kidneys with atopic right kidney functioning better than the left. Patient had a CT of the abdomen and pelvis without contrast performed 06/18/2019 impression: 1. Air-fluid level within the urinary bladder, correlate for colovesical fistula. 2. Exam is limited due to Static appearance. 3. Aortic aneurysm stent repair evident. Patient denies any dysuria or frequency. Patient has significant history of peripheral vascular disease with a aortic aneurysm repair with stent, coronary artery disease with stent placement 2010, right lower extremity DVT, itch or fibrillation, COPD, acid reflux, GI bleed, hypertension, sleep apnea, hepatitis C, hyperlipidemia, hyperthyroid, restless leg syndrome. 06/20: Patient continues to have decreased appetite feels bloated and nauseous with eating. Patient's unable to tolerate meals. CT from April was reviewed no evidence of mesenteric ischemia noted. Patient was seen by surgery, colonoscopy was reviewed from October no fistula was noted however the scope was incomplete due to incomplete prep. The scope was advanced to the proximal transverse colon. Urology has seen the patient and ordered a CT cystogram. Due to patient's elevated creatinine patient is unable to have a CT angiogram performed. May consider a CAT scan with oral contrast at barium enema to highlight the bowels. Concerned with possible ischemic bowel. Kidney function showed minimal improvement BUN 30, creatinine 1.68, potassium 3.4. Leukocytosis has increased to be WBC 18.4. Pre-albumin is 14 06/21: Patient denies any nausea or vomiting. Patient complains of a stomach ache and pain in the left lower quadrant. She also complains of food getting stuck in her throat. She states she has no appetite. Regarding diarrhea, she states she is having 2 loose stools daily. Lactic acid from yesterday was 1.3. C. difficile toxin negative. She remains afebrile, heart rate 70, blood pressure 146/66, pulse ox 96% on room air. story writer is sinus rhythm. Urology has been following the patient and colovesical fistula appears to be ruled out as patient does not have classic symptoms. Urology is planning for cystoscopy in one to 2 weeks as an outpatient. CAT scan of the abdomen and pelvis without contrast completed yesterday revealed no sign of mechanical bowel obstruction. There is possible wall thickening of the sigmoid colon that could relate to some colitis that is a change compared to recent exam 2 days ago. Abdominal aortic aneurysm unchanged. No renal obstruction. Atherosclerotic vascular disease. Barium swallow and enema have been ordered for today. Patient underwent barium swallow which is reported as unremarkable. Patient will need to wait for all barium to completely clear, nothing by mouth for 24 hours prior to the barium enema and bowel prep the day before barium enema. Abdominal x-ray ordered for morning. 06/22: Family wants PEG tube, so far testing are negative for any major finding specially cancer at this point, the possibility of fistula was excluded still will be going for cystoscopy as an outpatient. We'll consult GI again for possible PEG tube an EGD, Also the idea of eating disorders with proton apparently patient seen psychiatrist and psychologist regularly for it no rehab were constantly was proton will ask social work her to help patient specially when goes to rehab if has PEG tube are without PEG tube to have the continue the off psychiatry and psychology service afterward. 06/23: Patient had refused to go for a PEG tube today, still not doing well still require physical therapy and rehab patient apparently be going to [facility] for rehab with her she had PEG tube or not. Objective - Vital Signs Vital signs: Vital Signs Temp 97.3 F L 06/23/19 12:00 Pulse 63 06/23/19 12:00 Resp 18 06/23/19 12:00 BP 183/78 06/23/19 12:00 Pulse Ox 97 06/23/19 12:00 Intake & Output 06/22/19 06/23/19 06/23/19 18:59 06:59 18:59 Intake Total 719 504 2717 Balance 301 903 7940 Weight 35.4 kg 38.2 kg Intake: Intake, IV Titration 300 750 600 Amount Potassium Chloride 10 meq 300 In Water For Injection 1 100ml.bag @ 100 mls/hr IVPB Q1HR [facility] Rx#: [id number] Sodium Chloride 0.9% 1, 750 600 000 ml @ 75 mls/hr IV . [id number] [facility] Rx#:[id number] Oral 240 400 Other: Voiding Method Bedside Commode Bedside Commode Bedside Commode Diaper Diaper Diaper Incontinent Incontinent # Voids 3 2 # Bowel Movements 1 # Emeses 2 - Exam CONSTITUTIONAL: Look very sick had lost a lot of weight, no acute respiratory distress. EYES: No icterus sclerae, no conjunctivitis. EARS, NOSE, MOUTH, THROAT, and FACE: No sore throat, lymphadenopathy, carotid bruits or deformity. RESPIRATORY: No SOB cough or wheezes. CARDIOVASCULAR: No CP, Palpitation, PND, Orthopnea, or angina. GASTROINTESTINAL: Slight abdominal pain with nausea and no further dysphagia mild diarrhea per patient complain not evidence on nursing care GENITOURINARY: Negative for Hematuria or UTI, no kidney stones. INTEGUMENT/BREAST: Negative for any muscular injury with mild osteoarthritis.. HEMATOLOGIC/LYMPHATIC: Negative for bleed or purpura. MUSCULOSKELTAL: Negative for Myalgia or arthralgia. NEURLOGICAL: No LOC, Sz or syncope, blurred vision dizziness or abnormality.. BEHAVIORAL/PSYCH: Negative. ENDOCRINE: Negative. General Appearance: Alert, cooperative, no distress, appears stated age. Neck HEENT: Supple, no lymphadenopathy, no thyroid enlargement, no carotid bruits. Lungs: Decreased breath some bilateral fine rhonchi past mild expiratory wheezes Chest Wall: Decreased expansion with deep inspiration no tenderness and no deformity was found on exam, no costochondral pain or discomfort. Heart: Regular rate and rhythm, S1, S2 normal, no murmur, rub or gallop. Back: Severe scoliosis with L-spine discomfort Abdomen: Soft positive bowel sounds slight discomfort in the mid epigastric and mid abdominal region area not able to feel any masses no rebound or rigidity Extremities: Extremities normal, atraumatic, no cyanosis or edema. Pulses: 2+ and symmetric. Skin: Skin color, texture, tugor normal, no rashes or lesions. Neurologic: Alert oriented x3 cranial nerves II through XII intact, no motor deficit, no abnormal balance or gait. - Labs CBC & Chem 7: 06/23/19 08:22 06/23/19 08:22 Labs: Abnormal Lab Results - Last 24 Hours (Table) 06/22/19 06/23/19 06/23/19 Range/Units 21:43 08:22 08:22 RBC 3.57 L (3.80-5.40) m/uL Hgb 11.0 L (11.4-16.0) gm/dL Hct 33.6 L (34.0-46.0) % Potassium 3.3 L (3.5-5.1) mmol/L Chloride 112 H (98-107) mmol/L Creatinine 1.36 H (0.52-1.04) mg/dL Calcium 7.6 L (8.4-10.2) mg/dL Total Protein 4.6 L (6.3-8.2) g/dL Albumin 2.3 L (3.5-5.0) g/dL Microbiology - Last 24 Hours (Table) 06/21/19 02:45 Stool Culture - Preliminary Stool Assessment and Plan Plan: 1. Failure to thrive related to dysphagia and abdominal pain. No finding on testing, swallow evaluation came back negative, long talk with the family especially the daughter was start about the possibility of eating disorders but still insists of having her mom go for PEG tube for artificial feeding and if the mom is agreeable to it will be arranged with GI as a trial. 2. Abdominal pain no mesenteric ischemia was found no fistula the finding of suspicious of colitis with no symptoms to support at that this point patient is doing slightly better so far 3. Colovesical fistula essentially ruled out by urology. Urology plans for outpatient cystoscopy. Radiology and testing had excluded as a possibility. 4. Acute kidney injury on CKD. Continue with hydration, monitor kidney function, limit nephrotoxic medications. 5. Leukocytosis rule out colitis. Better and so far improve on current management. 6. Dysphagia. Swallow evaluation and barium swallow negative. 7. Hypokalemia. Continue to monitor potassium, replace Potassium per protocol 8. Coronary artery disease, PCI with stent in 2010. Continue Eliquis, aspirin 9. Peripheral vascular disease, aortic aneurysm repair with stents. Continue Eliquis, 10. Takosubu syndrome in 2016, stable still on medication. 11. Hepatitis C, stable 12. COPD Continue Ventolin, DuoNeb 13. History of DVT right lower leg. 14. Hypertension. Continue Norvasc, Bystolic, 15. Atrial fibrillation. Consult cardiology Continue Eliquis, 16. GERD. Continue Pepcid 20 mg 17. Depression, recurrent. Continue Cymbalta 18. Hypothyroidism. Continue Synthroid 20 mcg by mouth daily 19. Hyperlipidemia. Pravastatin 80 mg by mouth at bedtime 20. Restless leg syndrome. Continue Mirapex 21. Constipation. Barium enema Discharge planning: If refuse PEG tube patient is more stable continue physical therapy and plan to discharge to rehab tomorrow.
[2019-06-23] MEDS: ONDANSETRON 4 MG/2 ML VIAL IVP PRN (16:51)
[2019-06-23] MEDS ORDERED: DICYCLOMINE 10 MG CAP PO PRN (17:36)
[2019-06-23] MEDS: ALPRAZolam 0.5 MG TAB PO PRN (18:20)
[2019-06-23] MEDS: ACETAMINOPHEN TAB 325 MG TAB PO PRN (21:15)
[2019-06-23] MEDS: ATORVASTATIN 40 MG TAB PO SCH (21:26)
[2019-06-23] MEDS: PRAMIPEXOLE 0.125 MG TAB PO SCH (21:28)
[2019-06-24] MEDS: LEVOTHYROXINE 25 MCG TAB PO SCH (05:51)
[2019-06-24] MEDS: HYDROcodone/APAP 5-325MG 1 EACH TAB PO PRN (05:53)
[2019-06-24] MEDS: CALCIUM CARB-VIT D 500MG-200UN 1 EACH TAB PO SCH (08:26)
[2019-06-24] MEDS: amLODIPine 5 MG TAB PO SCH (08:26)
[2019-06-24] MEDS: ASPIRIN 81 MG PO SCH (08:26)
[2019-06-24] MEDS: FAMOTIDINE 20 MG TAB PO SCH (08:26)
[2019-06-24] MEDS: cycloSPORINE 0.05% OPHTH 0.4 ML DROPERETTE BOTH EYES SCH (08:26)
[2019-06-24] MEDS: DULoxetine HCL 60 MG CAPSULE.DR PO SCH (08:27)
[2019-06-24] MEDS: NEBIVOLOL 5 MG TAB PO SCH (08:27)
[2019-06-24] MEDS: MULTIVITAMINS, THERA 1 EACH TAB PO SCH (08:27)
[2019-06-24] MEDS: IPRATROPIUM-ALBUTEROL 3 ML NEB INHALATION SCH ×2 (08:49→11:50)
--- NOTE | 2019-06-24 09:50 | P.DS ---
Providers Date of admission: 06/20/19 09:08 Expected date of discharge: 06/24/19 Attending physician: Riri Bailey MD Consults: 06/18/19 17:01 Consult Physician Urgent Consulting Provider: [facility] Consult Reason/Comments: Elevated troponin Do you want consulting provider notified?: Yes 06/18/19 17:06 Consult Physician Urgent Consulting Provider: Berry Harris Consult Reason/Comments: colovesicular fistula Do you want consulting provider notified?: Yes 06/19/19 09:13 Consult Physician Routine Consulting Provider: Jared Cho Consult Reason/Comments: air- fluid level in bladder Do you want consulting provider notified?: Yes 06/21/19 10:43 Consult Physician Routine Consulting Provider: Ron Dye Consult Reason/Comments: dysphagia Do you want consulting provider notified?: Yes 06/22/19 10:11 Consult Physician Routine Consulting Provider: Ron Dye Consult Reason/Comments: PEG tube Do you want consulting provider notified?: Yes 06/24/19 08:01 Consult Physician Routine Consulting Provider: Mic Wright Consult Reason/Comments: failure to thrive Do you want consulting provider notified?: Yes Primary care physician: [facility] Course: This is a 69-year-old female who presented to the emergency room complaining of generalized weakness. The patient states that the weakness has been ongoing for about a week or 2 and she has progressively gotten worse. She also states that she has had a significant weight loss in the last 5 days. Patient states that every time she eats she feels bloated and has increased abdominal pain. Patient continues to complain of mild diffuse abdominal pain. She denies vomiting however she does feel nauseous. Patient denies fever or chills. Patient does complain of diarrhea. Patient states that her abdominal pain has been going on for a couple months. She was seen by her primary care doctor who prescribed Bentyl to help with her appetite and ordered a CT angiogram of the abdomen and pelvis that was done in April. The results of the CT angiogram shows stable thoracic aortic aneurysm, aortoiliac stent graft within the abdomen is patent throughout its course. An attenuated external iliac artery to provide blood flow to the level of the common femoral arteries, extensive ball use emphysmatous change, asymmetric function of the kidneys with atopic right kidney functioning better than the left. Patient had a CT of the abdomen and pelvis without contrast performed 06/18/2019 impression: 1. Air-fluid level within the urinary bladder, correlate for colovesical fistula. 2. Exam is limited due to Static appearance. 3. Aortic aneurysm stent repair evident. Patient denies any dysuria or frequency. Patient has significant history of peripheral vascular disease with a aortic aneurysm repair with stent, coronary artery disease with stent placement 2010, right lower extremity DVT, itch or fibrillation, COPD, acid reflux, GI bleed, hypertension, sleep apnea, hepatitis C, hyperlipidemia, hyperthyroid, restless leg syndrome. 06/20: Patient continues to have decreased appetite feels bloated and nauseous with eating. Patient's unable to tolerate meals. CT from April was reviewed no evidence of mesenteric ischemia noted. Patient was seen by surgery, colonoscopy was reviewed from October no fistula was noted however the scope was i ncomplete due to incomplete prep. The scope was advanced to the proximal transverse colon. Urology has seen the patient and ordered a CT cystogram. Due to patient's elevated creatinine patient is unable to have a CT angiogram performed. May consider a CAT scan with oral contrast at barium enema to highlight the bowels. Concerned with possible ischemic bowel. Kidney function showed minimal improvement BUN 30, creatinine 1.68, potassium 3.4. Leukocytosis has increased to be WBC 18.4. Pre-albumin is 14 06/21: Patient denies any nausea or vomiting. Patient complains of a stomach ache and pain in the left lower quadrant. She also complains of food getting stuck in her throat. She states she has no appetite. Regarding diarrhea, she states she is having 2 loose stools daily. Lactic acid from yesterday was 1.3. C. difficile toxin negative. She remains afebrile, heart rate 70, blood pressure 146/66, pulse ox 96% on room air. radiation monitor is sinus rhythm. Urology has been following the patient and colovesical fistula appears to be ruled out as patient does not have classic symptoms. Urology is planning for cystoscopy in one to 2 weeks as an outpatient. CAT scan of the abdomen and pelvis without contrast completed yesterday revealed no sign of mechanical bowel obstruction. There is possible wall thickening of the sigmoid colon that could relate to some colitis that is a change compared to recent exam 2 days ago. Abdominal aortic aneurysm unchanged. No renal obstruction. Atherosclerotic vascular disease. Barium swallow and enema have been ordered for today. P davidient underwent barium swallow which is reported as unremarkable. Patient will need to wait for all barium to completely clear, nothing by mouth for 24 hours prior to the barium enema and bowel prep the day before barium enema. Abdominal x-ray ordered for morning. 06/22: Family wants PEG tube, so far testing are negative for any major finding specially cancer at this point, the possibility of fistula was excluded still will be going for cystoscopy as an outpatient. We'll consult GI again for possible PEG tube an EGD, Also the idea of eating disorders with proton apparently patient seen ps ychiatrist and psychologist regularly for it no rehab were constantly was proton will ask social work her to help patient specially when goes to rehab if has PEG tube are without PEG tube to have the continue the off psychiatry and psychology service afterward. 06/23: Patient had refused to go for a PEG tube today, still not doing well still require physical therapy and rehab patient apparently be going to [facility] on the [place] for rehab with her she had PEG tube or not. 06/24: Patient has received refused PEG tube placement. We have asked for psychiatric evaluation for eating disorder. They have recommended Remeron and outpatient counseling. Patient has been afebrile, blood pressure 160/57, pulse ox 90% on room air, heart rate 57. The patient is eating her lunch and shows no signs of dysphagia. Patient has been accepted at [facility] and we will transfer once all arrangements are completed. Insurance authorization has been obtained. Discharge diagnoses: 1. Failure to thrive related to dysphagia and abdominal pain. No finding on testing, swallow evaluation came back negative, most likely due to eating disorder. 2. Abdominal pain no mesenteric ischemia was found no fistula the finding of suspicious of colitis with no symptoms to support at that this point 3. Colovesical fistula essentially ruled out by urology. 4. Acute kidney injury on CKD. 5. Leukocytosis rule out colitis. 6. Dysphagia. 7. Hypokalemia. 8. Coronary artery disease, PCI with stent in 2010. 9. Peripheral vascular disease, aortic aneurysm repair with stents. 10. Takosubu syndrome in 2016, stable still on medication. 11. Hepatitis C, stable 12. COPD 13. History of DVT right lower leg. 14. Hypertension. 15. Atrial fibrillation, paroxysmal. 16. GERD. 17. Depression, recurrent. 18. Hypothyroidism. 19. Hyperlipidemia. 20. Restless leg syndrome. 21. Constipation. Discharge planning: [facility] today. Impression and plan of care have been directed as dictated by the signing physician. Coby Joaquin nurse practitioner acting as scribe for signing physician. Patient Condition at Discharge: Good Plan - Discharge Summary Discharge Rx Participant: Yes New Discharge Prescriptions: New HYDROcodone/APAP 5-325MG [Jackson 5-325] 1 each PO Q6HR PRN #12 tab PRN Reason: Pain Cholestyramine (with Sugar) [Questran Packet] 4 gm PO DAILY@1000 packet Mirtazapine [Remeron] 7.5 mg PO HS tab Acetaminophen Tab [Tylenol] 650 mg PO Q6HR PRN tab PRN Reason: Fever and/ or MILD Pain Continue Sucralfate [Carafate] 1 gm PO AC-TID Tiotropium 18 Mcg/Puff [Spiriva] 1 cap INHALATION RT-BID Pramipexole [Mirapex] 0.125 mg PO HS DULoxetine HCL [Cymbalta] 60 mg PO BID Aspirin 81 mg PO DAILY chew Pravastatin Sodium [Pravachol] 80 mg PO HS #0 tab Nitroglycerin Sl Tabs [Nitrostat] 0.4 mg SUBLINGUAL Q5M PRN PRN Reason: Chest Pain Dexlansoprazole [Dexilant] 60 mg PO DAILY Calcium Carbonate/Vitamin D3 [Calcium 600-Vit D3 400 Caplet] 1 tab PO BID Ipratropium-Albuterol Nebulize [Duoneb 0.5 mg-3 mg/3 ml Soln] 3 ml INHALATION RT-QID Albuterol Inhaler [Ventolin Hfa Inhaler] 1 - 2 puff INHALATION RT-Q6H PRN PRN Reason: Shortness Of Breath cycloSPORINE [Restasis] 1 drop BOTH EYES BID Topiramate [Topamax] 50 mg PO BID Butalb/APAP/Caff 50-325-40Mg [Fioricet 50-325-40] 1 - 2 tab PO Q8H PRN PRN Reason: Migraine Headache Levothyroxine Sodium [Synthroid] 25 mcg PO DAILY Multivitamins, Thera [Multivitamin (formulary)] 1 tab PO DAILY Nebivolol [Bystolic] 5 mg PO BID Apixaban [Eliquis] 2.5 mg PO BID #60 tablet Fesoterodine Fumarate [Toviaz] 8 mg PO DAILY amLODIPine [Norvasc] 5 mg PO DAILY #30 tab Famotidine [Pepcid] 20 mg PO DAILY #30 tab Changed Dicyclomine [Bentyl] 10 mg PO QID PRN #0 tab PRN Reason: Dyspepsia ALPRAZolam [Xanax] 0.25 mg PO TID PRN #9 tab PRN Reason: Anxiety Discontinued guaiFENesin [Mucinex] 1,200 mg PO Q12H Polyethylene Glycol 3350 [Miralax] 17 gm PO DAILY #30 packet Sennosides-Docusate Sodium [Senokot-S] 2 tab PO DAILY Discharge Medication List Sucralfate [Carafate] 1 gm PO AC-TID 12/27/13 [History] Pramipexole [Mirapex] 0.125 mg PO HS 09/12/14 [History] Tiotropium 18 Mcg/Puff [Spiriva] 1 cap INHALATION RT-BID 09/12/14 [History] DULoxetine HCL [Cymbalta] 60 mg PO BID 07/18/17 [History] Aspirin 81 mg PO DAILY chew 09/02/17 [Rx] Pravastatin Sodium [Pravachol] 80 mg PO HS #0 tab 09/02/17 [Rx] Dexlansoprazole [Dexilant] 60 mg PO DAILY 12/12/17 [History] Nitroglycerin Sl Tabs [Nitrostat] 0.4 mg SUBLINGUAL Q5M PRN 12/12/17 [History] Albuterol Inhaler [Ventolin Hfa Inhaler] 1 - 2 puff INHALATION RT-Q6H PRN 10/08/18 [History] Butalb/APAP/Caff 50-325-40Mg [Fioricet 50-325-40] 1 - 2 tab PO Q8H PRN 10/08/18 [History] Calcium Carbonate/Vitamin D3 [Calcium 600-Vit D3 400 Caplet] 1 tab PO BID 10/08/18 [History] Ipratropium-Albuterol Nebulize [Duoneb 0.5 mg-3 mg/3 ml Soln] 3 ml INHALATION RT-QID 10/08/18 [History] Topiramate [Topamax] 50 mg PO BID 10/08/18 [History] cycloSPORINE [Restasis] 1 drop BOTH EYES BID 10/08/18 [History] Levothyroxine Sodium [Synthroid] 25 mcg PO DAILY 02/28/19 [History] Multivitamins, Thera [Multivitamin (formulary)] 1 tab PO DAILY 02/28/19 [History] Nebivolol [Bystolic] 5 mg PO BID 02/28/19 [History] Apixaban [Eliquis] 2.5 mg PO BID #60 tablet 03/02/19 [Rx] Famotidine [Pepcid] 20 mg PO DAILY #30 tab 03/03/19 [Rx] Fesoterodine Fumarate [Toviaz] 8 mg PO DAILY 03/03/19 [History] amLODIPine [Norvasc] 5 mg PO DAILY #30 tab 03/03/19 [Rx] ALPRAZolam [Xanax] 0.25 mg PO TID PRN #9 tab 06/24/19 [Rx] Acetaminophen Tab [Tylenol] 650 mg PO Q6HR PRN tab 06/24/19 [Rx] Cholestyramine (with Sugar) [Questran Packet] 4 gm PO DAILY@1000 packet 06/24/19 [Rx] Dicyclomine [Bentyl] 10 mg PO QID PRN #0 tab 06/24/19 [Rx] HYDROcodone/APAP 5-325MG [Jackson 5-325] 1 each PO Q6HR PRN #12 tab 06/24/19 [Rx] Mirtazapine [Remeron] 7.5 mg PO HS tab 06/24/19 [Rx] Follow up Appointment(s)/Referral(s): Sim Mckeon MD [STAFF PHYSICIAN] - 1 Week [facility], [NON-STAFF] - Jenaro Colbert DO [Primary Care Provider] - 1 Week (after dc from [facility]CF) Discharge Disposition: TRANSFER TO SNF/ECF
[2019-06-24] MEDS ORDERED: CHOLESTYRAMINE (WITH SUGAR) 4 GM PACKET PO SCH (10:00)
[2019-06-24 12:09] VITALS: BP 160/57; PULSE 57; RESP 18; TEMP 97.8
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
[2019-06-24] MEDS ORDERED: MIRTAZAPINE 15 MG TAB PO SCH (21:00)
== END 2019-06-24 15:25 | DRG 640 ==
LOC: EC 13:12 → 3SCARD 17:01 → OBSVTOIN 06-20 09:08 → 3NMEDONC 06-21 12:57
PROVIDERS: ADMIT Internal Medicine; ATTEND Internal Medicine
DX: R62.7 Adult failure to thrive (principal); E43 Unspecified severe protein-calorie malnutrition; N17.9 Acute kidney failure, unspecified; R64 Cachexia; Z68.1 Body mass index [BMI] 19.9 or less, adult; F33.9 Major depressive disorder, recurrent, unspecified; I13.0 Hypertensive heart and chronic kidney disease with heart failure and stage 1 through stage 4 chronic kidney disease, or unspecified chronic kidney disease; I50.32 Chronic diastolic (congestive) heart failure; N18.9 Chronic kidney disease, unspecified; R13.14 Dysphagia, pharyngoesophageal phase; Z53.20 Procedure and treatment not carried out because of patient's decision for unspecified reasons; B19.20 Unspecified viral hepatitis C without hepatic coma; E03.9 Hypothyroidism, unspecified; E78.5 Hyperlipidemia, unspecified; E87.6 Hypokalemia; F17.290 Nicotine dependence, other tobacco product, uncomplicated; F41.0 Panic disorder [episodic paroxysmal anxiety]; F50.9 Eating disorder, unspecified; G25.81 Restless legs syndrome; G89.29 Other chronic pain; I08.3 Combined rheumatic disorders of mitral, aortic and tricuspid valves; I25.10 Atherosclerotic heart disease of native coronary artery without angina pectoris; I25.2 Old myocardial infarction; I27.20 Pulmonary hypertension, unspecified; I48.0 Paroxysmal atrial fibrillation; I71.4 Abdominal aortic aneurysm, without rupture; I73.9 Peripheral vascular disease, unspecified; J44.9 Chronic obstructive pulmonary disease, unspecified; L89.302 Pressure ulcer of unspecified buttock, stage 2; K21.9 Gastro-esophageal reflux disease without esophagitis; K58.9 Irritable bowel syndrome, unspecified; Z79.01 Long term (current) use of anticoagulants; Z79.82 Long term (current) use of aspirin; Z79.890 Hormone replacement therapy; Z79.899 Other long term (current) drug therapy; Z82.49 Family history of ischemic heart disease and other diseases of the circulatory system; Z82.5 Family history of asthma and other chronic lower respiratory diseases; Z81.8 Family history of other mental and behavioral disorders; Z81.1 Family history of alcohol abuse and dependence; Z86.718 Personal history of other venous thrombosis and embolism; Z86.79 Personal history of other diseases of the circulatory system; Z90.710 Acquired absence of both cervix and uterus; Z91.041 Radiographic dye allergy status; Z95.5 Presence of coronary angioplasty implant and graft; Z88.5 Allergy status to narcotic agent; Z88.0 Allergy status to penicillin; Z88.2 Allergy status to sulfonamides; Z88.8 Allergy status to other drugs, medicaments and biological substances; Z88.6 Allergy status to analgesic agent; Z88.1 Allergy status to other antibiotic agents; Z91.030 Bee allergy status; Z91.040 Latex allergy status; K59.00 Constipation, unspecified; M54.5 Low back pain; Z87.01 Personal history of pneumonia (recurrent); Z87.19 Personal history of other diseases of the digestive system; G47.30 Sleep apnea, unspecified; Z99.89 Dependence on other enabling machines and devices; Z98.42 Cataract extraction status, left eye; Z98.41 Cataract extraction status, right eye
CPT/HCPCS: 36415; 71046; 74019; 74022; 74176; 74230; 80048; 80053; 80061; 81001; 82150; 83605; 83630; 83690; 83735; 84132; 84134; 84484; 85025; 85027; 85610; 85652; 85730; 86140; 87045; 87046; 87324; 93005; 94640; 94760; 99285

== ENCOUNTER 2019-07-13 06:14 | Inpatient (IN) | payer MEDICARE ==
[2019-07-13] MEDS ORDERED: SODIUM CHLORIDE 0.9% 1,000 ML IV STA ×2 (06:31)
--- NOTE | 2019-07-13 06:51 | ED ---
General Adult HPI - General Chief complaint: Nausea/Vomiting/Diarrhea Stated complaint: Weakness Time Seen by Provider: 07/13/19 06:15 Source: patient, family, EMS, RN notes reviewed Mode of arrival: EMS Limitations: no limitations - History of Present Illness Initial comments: This is a 69-year-old female presents emergency Department with chief complaint of dehydration, abdominal pain unable to eat. Patient had a recent hospitalization for similar complaints had multiple CTs, evaluation by surgery, GI and urology with no specific findings. Daughter believes that she does have an underlying eating disorder. Patient has continuously lost weight in which the patient now weighs 75 pounds. Patient states that she has lower abdominal pain. This is the pain has been going on for several years but has worsened over the last 6 months to one year. Patient denies any current dysuria or hematuria. Patient denies fevers chills. Patient did have recent bowel movement she has been constipated. Patient was given Zofran and fentanyl by EMS. Patient was discharged from the hospital after hospitalization to [facility] on Friday. Patient was doing well while she was taking her medications at [facility]. - Related Data Home Medications Medication Instructions Recorded Confirmed Pramipexole [Mirapex] 0.125 mg PO HS 09/12/14 07/13/19 Tiotropium 18 Mcg/Puff [Spiriva] 1 cap INHALATION RT-BID 09/12/14 07/13/19 DULoxetine HCL [Cymbalta] 60 mg PO BID 07/18/17 07/13/19 Dexlansoprazole [Dexilant] 60 mg PO DAILY 12/12/17 07/13/19 Nitroglycerin Sl Tabs [Nitrostat] 0.4 mg SUBLINGUAL Q5M PRN 12/12/17 07/13/19 Albuterol Inhaler [Ventolin Hfa 1 - 2 puff INHALATION RT-Q6H PRN 10/08/18 07/13/19 Inhaler] Butalb/APAP/Caff 50-325-40Mg 1 - 2 tab PO Q8H PRN 10/08/18 07/13/19 [Fioricet 50-325-40] Ipratropium-Albuterol Nebulize 3 ml INHALATION RT-QID 10/08/18 07/13/19 [Duoneb 0.5 mg-3 mg/3 ml Soln] Topiramate [Topamax] 50 mg PO BID 10/08/18 07/13/19 cycloSPORINE [Restasis] 1 drop BOTH EYES BID 10/08/18 07/13/19 Levothyroxine Sodium [Synthroid] 25 mcg PO DAILY 02/28/19 07/13/19 Multivitamins, Thera [Multivitamin 1 tab PO DAILY 02/28/19 07/13/19 (formulary)] Nebivolol [Bystolic] 5 mg PO BID 02/28/19 07/13/19 Fesoterodine Fumarate [Toviaz] 8 mg PO DAILY 03/03/19 07/13/19 HYDROcodone/APAP 5-325MG [[place] 1 tab PO Q6HR PRN 07/13/19 07/13/19 5-325] Previous Rx's Medication Instructions Recorded Aspirin 81 mg PO DAILY chew 09/02/17 Apixaban [Eliquis] 2.5 mg PO BID #60 tablet 03/02/19 amLODIPine [Norvasc] 5 mg PO DAILY #30 tab 03/03/19 ALPRAZolam [Xanax] 0.25 mg PO TID PRN #9 tab 06/24/19 Acetaminophen Tab [Tylenol] 650 mg PO Q6HR PRN tab 06/24/19 Dicyclomine [Bentyl] 10 mg PO QID PRN #0 tab 06/24/19 Mirtazapine [Remeron] 7.5 mg PO HS tab 06/24/19 Allergies Allergy/AdvReac Type Severity Reaction Status Date / Time naproxen sodium [From Aleve] Allergy Severe Anaphylaxis Verified 07/13/19 07:21 adhesive Allergy Rash/Hives Verified 07/13/19 07:21 cinnamon [Cinnamon] Allergy Dyspnea Verified 07/13/19 07:21 clindamycin Allergy Anaphylaxis Verified 07/13/19 07:21 codeine Allergy Nausea & Verified 07/13/19 07:21 Vomiting gentamicin [Gentamicin] Allergy SWELLING Verified 07/13/19 07:21 OF FACE W/ EYE DROPS paola Allergy Dyspnea Verified 07/13/19 07:21 Iodinated Contrast Media Allergy Dyspnea Verified 07/13/19 07:21 [Iodinated Contrast- Oral and IV Dye] latex Allergy Rash/Hives Verified 07/13/19 07:21 levothyroxine sodium Allergy Unknown Verified 07/13/19 07:21 [From Synthroid] losartan Allergy Unknown Verified 07/13/19 07:21 montelukast sodium Allergy Wheezing Verified 07/13/19 07:21 [From Singulair] pantoprazole sodium Allergy Abdominal Verified 07/13/19 07:21 [From Protonix] Pain Penicillins Allergy Rash/Hives Verified 07/13/19 07:21 red dye Allergy Abdominal Verified 07/13/19 07:21 Pain Sulfa (Sulfonamide Allergy Swelling Verified 07/13/19 07:21 Antibiotics) IN MOUTH sulfamethoxazole Allergy swelling Verified 07/13/19 07:21 [From Bactrim] tongue sulfanilamide Allergy Unknown Verified 07/13/19 07:21 trimethoprim [From Bactrim] Allergy Swelling Verified 07/13/19 07:21 venom-honey bee Allergy Dyspnea Verified 07/13/19 07:21 [bee venom (honey bee)] BANDAIDS Allergy Rash/Hives Uncoded 06/18/19 13:19 Dye for gallbladder scan. Allergy Anaphylaxis Uncoded 06/18/19 13:19 tomatoes AdvReac Abdominal Uncoded 06/18/19 13:19 Pain Review of Systems ROS Statement: Those systems with pertinent positive or pertinent negative responses have been documented in the HPI. ROS Other: All systems not noted in ROS Statement are negative. Past Medical History Past Medical History: Atrial Fibrillation, Asthma, Coronary Artery Disease (CAD), Chest Pain / Angina, COPD, Deep Vein Thrombosis (DVT), GERD/Reflux, GI Bleed, Hypertension, Liver Disease, Memory Impairment, Myocardial Infarction (UT), Pneumonia, Respiratory Disorder, Sleep Apnea/CPAP/BIPAP, Vascular Disorder Additional Past Medical History / Comment(s): on 10/25/18 pt states was having pizza with family and food got stuck, pt had small amount of emesis. She went to bed and woke up to discover that she was incontinent of stool while she slept. Pt states that this has never happened.Patient continues to have difficulty swallowing like before. HEP C. Aortic aneurysm with stent-being monitored, Takosubu syndrome in 2016, R groin dissection/cardiac cath, recent bacteremia- blood cultures positive for veridans strep-completed antibiotics, bronchitis, home O2 at 3L/NC most of the time, LG without device-stable, DVT R leg, lower GI bleed, hepatitis C with Harvoni treatment, anemia with iron infusions x2, bilateral femoral head avascular necrosis, RLS, migraines, insomnia, constipation, overactive bladder, post menopausal bleed. Last Myocardial Infarction Date:: 07/2017 History of Any Multi-Drug Resistant Organisms: None Reported Past Surgical History: Bladder Surgery, Cholecystectomy, Heart Catheterization With Stent, Hysterectomy, Orthopedic Surgery Additional Past Surgical History / Comment(s): 11/28/17 lap albert, PCI with stent 2010, cardiac cath 07/2017-treat medically, common iliac artery stent 2005, exploratory lap, liver bx, R foot surgery d/t infection, R shoulder arthroscopic surgery, CAN, EGD, colonoscopy years ago, R leg varicose vein surgery, bladder suspension, eric cataract sx Past Anesthesia/Blood Transfusion Reactions: No Reported Reaction Date of Last Stent Placement:: 2010 Past Psychological History: Anxiety, Depression, Panic Disorder Smoking Status: Current every day smoker Past Alcohol Use History: None Reported Past Drug Use History: None Reported - Past Family History Brother(s) Family Medical History: Coronary Artery Disease (CAD), Myocardial Infarction (UT) Father Additional Family Medical History / Comment(s): FROM CIRRHOSIS OF THE LIVER Mother Family Medical History: COPD Additional Family Medical History / Comment(s): FROM AAA, HAD HX of TB. General Exam Limitations: no limitations General appearance: alert, in no apparent distress, cachectic Head exam: Present: atraumatic, normocephalic, normal inspection Eye exam: Present: normal appearance, PERRL, EOMI. Absent: scleral icterus, conjunctival injection, periorbital swelling ENT exam: Present: mucous membranes dry, TM's normal bilaterally. Absent: mucous membranes moist Neck exam: Present: normal inspection, full ROM. Absent: tenderness, me ningismus, lymphadenopathy Respiratory exam: Present: normal lung sounds bilaterally. Absent: respiratory distress, wheezes, rales, rhonchi, stridor Cardiovascular Exam: Present: regular rate, normal rhythm, normal heart sounds. Absent: systolic murmur, diastolic murmur, rubs, gallop, clicks GI/Abdominal exam: Present: soft, tenderness (Mild amount of lower abdominal tenderness), normal bowel sounds. Absent: distended, guarding, rebound, rigid Back exam: Absent: CVA tenderness (R), CVA tenderness (L) Neurological exam: Present: alert, oriented X3 Skin exam: Present: warm, dry, intact, normal color. Absent: rash Course Vital Signs 07/13/19 07/13/19 07/13/19 06:19 07:20 08:00 Temperature 97.4 F L Pulse Rate 80 74 65 Respiratory 18 18 18 Rate Blood Pressure 185/103 181/103 165/81 O2 Sat by Pulse 98 98 99 Oximetry Medical Decision Making - Medical Decision Making Patient's found to be dehydrated, patient has acute kidney injury recurrent 1.19. Patient's has some magnesium are within normal limits. Patient was given fluid hydration. Patient will be admitted for failure to thrive, dehydration, acute kidney injury. - Lab Data Result diagrams: 07/13/19 06:42 07/13/19 06:42 Lab Results 07/13/19 07/13/19 07/13/19 Range/Units 06:42 06:42 06:42 WBC 11.1 H (3.8-10.6) k/uL RBC 3.88 (3.80-5.40) m/uL Hgb 12.0 (11.4-16.0) gm/dL Hct 37.1 (34.0-46.0) % MCV 95.6 (80.0-100.0) fL MCH 31.0 (25.0-35.0) pg MCHC 32.5 (31.0-37.0) g/dL RDW 14.8 (11.5-15.5) % Plt Count 387 D (150-450) k/uL Neutrophils % 58 % Lymphocytes % 31 % Monocytes % 4 % Eosinophils % 5 % Basophils % 1 % Neutrophils # 6.5 (1.3-7.7) k/uL Lymphocytes # 3.4 (1.0-4.8) k/uL Monocytes # 0.5 (0-1.0) k/uL Eosinophils # 0.5 (0-0.7) k/uL Basophils # 0.1 (0-0.2) k/uL Hypochromasia Slight Sodium 142 (137-145) mmol/L Potassium 3.7 (3.5-5.1) mmol/L Chloride 114 H (98-107) mmol/L Carbon Dioxide 17 L (22-30) mmol/L Anion Gap 11 mmol/L BUN 26 H (7-17) mg/dL Creatinine 1.91 H (0.52-1.04) mg/dL Est GFR (CKD-EPI)AfAm 30 (>60 ml/min/1.73 sqM) Est GFR (CKD-EPI)NonAf 26 (>60 ml/min/1.73 sqM) Glucose 140 H (74-99) mg/dL Plasma Lactic Acid [place] 2.3 H* (0.7-2.0) mmol/L Calcium 9.0 (8.4-10.2) mg/dL Magnesium 2.1 (1.6-2.3) mg/dL Total Bilirubin 0.6 (0.2-1.3) mg/dL AST 38 H (14-36) U/L ALT 18 (9-52) U/L Alkaline Phosphatase 99 (38-126) U/L Troponin I (0.000-0.034) ng/mL Total Protein 6.2 L (6.3-8.2) g/dL Albumin 3.3 L (3.5-5.0) g/dL Amylase 113 H (30-110) U/L Lipase 186 (23-300) U/L Urine Color Urine Appearance (Clear) Urine pH (5.0-8.0) Ur Specific [place] (1.001-1.035) Urine Protein (Negative) Urine Glucose (UA) (Negative) Urine Ketones (Negative) Urine Blood (Negative) Urine Nitrite (Negative) Urine Bilirubin (Negative) Urine Urobilinogen (<2.0) mg/dL Ur Leukocyte Esterase (Negative) Urine RBC (0-5) /hpf Urine WBC (0-5) /hpf Hyaline Casts (0-2) /lpf 07/13/19 07/13/19 Range/Units 06:42 08:15 WBC (3.8-10.6) k/uL RBC (3.80-5.40) m/uL Hgb (11.4-16.0) gm/dL Hct (34.0-46.0) % MCV (80.0-100.0) fL MCH (25.0-35.0) pg MCHC (31.0-37.0) g/dL RDW (11.5-15.5) % Plt Count (150-450) k/uL Neutrophils % % Lymphocytes % % Monocytes % % Eosinophils % % Basophils % % Neutrophils # (1.3-7.7) k/uL Lymphocytes # (1.0-4.8) k/uL Monocytes # (0-1.0) k/uL Eosinophils # (0-0.7) k/uL Basophils # (0-0.2) k/uL Hypochromasia Sodium (137-145) mmol/L Potassium (3.5-5.1) mmol/L Chloride (98-107) mmol/L Carbon Dioxide (22-30) mmol/L Anion Gap mmol/L BUN (7-17) mg/dL Creatinine (0.52-1.04) mg/dL Est GFR (CKD-EPI)AfAm (>60 ml/min/1.73 sqM) Est GFR (CKD-EPI)NonAf (>60 ml/min/1.73 sqM) Glucose (74-99) mg/dL Plasma Lactic Acid [place] (0.7-2.0) mmol/L Calcium (8.4-10.2) mg/dL Magnesium (1.6-2.3) mg/dL Total Bilirubin (0.2-1.3) mg/dL AST (14-36) U/L ALT (9-52) U/L Alkaline Phosphatase (38-126) U/L Troponin I 0.021 (0.000-0.034) ng/mL Total Protein (6.3-8.2) g/dL Albumin (3.5-5.0) g/dL Amylase (30-110) U/L Lipase (23-300) U/L Urine Color Light Yellow Urine Appearance Clear (Clear) Urine pH 6.5 (5.0-8.0) Ur Specific [place] 1.007 (1.001-1.035) Urine Protein 2+ H (Negative) Urine Glucose (UA) Negative (Negative) Urine Ketones Negative (Negative) Urine Blood Trace H (Negative) Urine Nitrite Negative (Negative) Urine Bilirubin Negative (Negative) Urine Urobilinogen <2.0 (<2.0) mg/dL Ur Leukocyte Esterase Negative (Negative) Urine RBC 2 (0-5) /hpf Urine WBC 2 (0-5) /hpf Hyaline Casts 1 (0-2) /lpf Disposition Clinical Impression: Dehydration, Weight loss, Acute renal failure, Failure to thrive, Cachectic Disposition: ADMITTED IP TO THIS [facility] Condition: Fair Referrals: Jenaro Colbert DO [Primary Care Provider] - 1-2 days
[2019-07-13] MEDS ORDERED: LABETALOL 5 MG/ML VIAL MDV IVP STA (07:23)
[2019-07-13 07:24] LABS: Basophils # (A) 0.1 k/uL (0-0.2); Basophils % (A) 1 %; Eosinophils # (A) 0.5 k/uL (0-0.7); Eosinophils % (A) 5 %; HCT 37.1 % (34.0-46.0); Hypochromasia Slight; Lymphocytes # (A) 3.4 k/uL (1.0-4.8); Lymphocytes % (A) 31 %; MCHC 32.5 g/dL (31.0-37.0); MCV 95.6 fL (80.0-100.0); Mean Platelet Volume 6.6; Monocytes # (A) 0.5 k/uL (0-1.0); Monocytes % (A) 4 %; Neutrophils # (A) 6.5 k/uL (1.3-7.7); Neutrophils % (A) 58 %; RBC 3.88 m/uL (3.80-5.40); RDW 14.8 % (11.5-15.5); WBC 11.1 k/uL (3.8-10.6)
[2019-07-13 07:27] LABS: Platelet Count 387 k/uL (150-450)
[2019-07-13 07:29] LABS: Albumin 3.3 g/dL (3.5-5.0); Magnesium 2.1 mg/dL (1.6-2.3); Potassium 3.7 mmol/L (3.5-5.1); Total Bilirubin 0.6 mg/dL (0.2-1.3); Total Protein 6.2 g/dL (6.3-8.2)
--- NOTE | 2019-07-13 08:15 | XR ---
EXAMINATION TYPE: XR KUB DATE OF EXAM: 07/13/2019 CLINICAL DATA: 69-year-old female with abdominal pain, [facility] COMPARISON: 02/16/2019 FINDINGS: Large stool within the pelvis. Surgical clips in the bilateral inguinal regions. Supine imaging limit ed for assessment of free air. No dilated small bowel loops. Aortobiiliac endovascular stent graft is redemonstrated. IMPRESSION: Large amount of stool in the pelvis. Nonobstructive bowel gas pattern. Aortobiiliac endovascular sten t graft redemonstrated.
[2019-07-13 08:36] LABS: Appearance,Urine Clear (Clear); Bilirubin,Urine Negative (Negative); Blood,Urine Trace (Negative); Color,Urine Light Yellow; Glucose,Urine (UA) Negative (Negative); Hyaline Casts,Urine 1 /lpf (0-2); Ketones,Urine Negative (Negative); Leukocyte Esterase,Urine Negative (Negative); Nitrite,Urine Negative (Negative); PH, Urine 6.5 (5.0-8.0); Protein,Urine 2+ (Negative); RBC,Urine 2 /hpf (0-5); Specific Gravity,Urine 1.007 (1.001-1.035); Urobilinogen,Urine <2.0 mg/dL (<2.0); WBC,Urine 2 /hpf (0-5)
[2019-07-13] MEDS ORDERED: NALOXONE 0.4 MG/ML 1 ML VIAL IV PRN (09:25)
[2019-07-13] MEDS ORDERED: BISACODYL 5 MG TABLET.DR PO PRN (09:25)
[2019-07-13] MEDS ORDERED: NA PHOS,M-B/NA PHOS,DI-BA 133 ML ENEMA RECTAL PRN (09:25)
[2019-07-13] MEDS: SODIUM CHLORIDE 0.9% 1,000 ML IV SCH (09:35)
[2019-07-13] MEDS ORDERED: METOCLOPRAMIDE 5 MG/ML 2 ML VIAL IVP STA (11:22)
[2019-07-13] MEDS ORDERED: NITROGLYCERIN SL TABS 0.4 MG TAB SUBLINGUAL PRN (14:03)
[2019-07-13] MEDS ORDERED: BUTALB/APAP/CAFF 50-325-40MG TAB PO PRN (14:03)
[2019-07-13] MEDS ORDERED: ACETAMINOPHEN TAB 325 MG TAB PO PRN (14:03)
[2019-07-13] MEDS: amLODIPine 5 MG TAB PO SCH (14:31)
[2019-07-13] MEDS: NEBIVOLOL 5 MG TAB PO SCH ×2 (15:00→21:37)
--- NOTE | 2019-07-13 15:18 | P.HPIM ---
History of Present Illness H&P Date: 07/13/19 This is a 69-year-old female with past medical history of peripheral vascular disease with a aortic aneurysm repair with stent, coronary artery disease with stent placement 2010, right lower extremity DVT, itch or fibrillation, COPD, acid reflux, GI bleed, hypertension, sleep apnea, hepatitis C, hyperlipidemia, hyperthyroid, restless leg syndrome who presented to the emergency room complaining of generalized weakness. She was just admitted on 06/20 for similar complaints and was discharged to [facility] where she was for 2 weeks and was discharged one week ago. Patient comes in with increased weakness and diarrhea and significant weight loss. Patient has pelvic abdominal pain for which [facility] computed tomography scan and CT angiogram has been performed with no potential reason to explain for patient's abdominal pain. She was seen by her primary care doctor who prescribed Bentyl to help with her appetite and ordered a CT angiogram of the abdomen and pelvis that was done in April. Abdominal pain- The results of the CT angiogram shows stable thoracic aortic aneurysm, aortoiliac stent graft within the abdomen is patent throughout its course. An attenuated external iliac artery to provide blood flow to the level of the common femoral arteries, extensive ball use emphysmatous change, asymmetric function of the kidneys with atopic right kidney functioning better than the left. Patient had a CT of the abdomen and pelvis without contrast performed 06/18/2019 impression: 1. Air-fluid level within the urinary bladder, correlate for colovesical fistula. Urology ruled out fistula and plan to do cystoscopy as outpatient in [address] from April was reviewed no evidence of mesenteric ischemia noted. Patient was seen by surgery, colonoscopy was reviewed from [facility] no fistula was noted however the scope was incomplete due to incomplete prep. Weight loss - Patient underwent barium swallow which is reported as unremarkable. Patient is able to eat but stayed because of her weakness she is unable to fix her own meals. She did not have any episode of diarrhea while she was at [facility] but when she was discharged she started having the diarrhea episodes again. She states grandson was helping with the meal prep and was getting meals on wheels but was not able to eat anything because of diarrhea. Multiple discussions were made during last hospitalization for PEG tube placement but patient refused to get it. Psychiatry evaluation was negative for anorexia nervosa. Patient has the ability to eat but is currently refusing PEG tube Patient came to the ER as she was getting significantly weak and passed out after having a diarrheal episode this morning and decided to call the ambulance. Evaluation of white as patient had temp of 99.2 pulse 70 blood pressure 166/78 oxygen 100% on 2 L. WBC suggests a leukocyte of 11.1 chloride 114 UN 26 cre atinine 1.91 increased from baseline of 1.36 lactic acid was increased to 2.3 glucose is 140. We will start patient on bowel regimen and have gastroenterology consulted for possible PEG tube placement and colonoscopy to evaluate the bowels Review of Systems Constitutional: Denies chills, Denies fever, endorses poor appetite, weakness, weight loss Eyes: denies decreased vision, denies diplopia, denies discharge, denies pain Ears: deny: decreased hearing Ears, nose, mouth and throat: Denies dental pain, Denies headache, Denies nasal discharge, Denies nose pain Cardiovascular: Denies chest pain, Denies decreased exercise tolerance, Denies edema, Denies high blood pressure, Denies irregular heart beat, Denies palpitations, Denies paroxysmal nocturnal dyspnea, Denies rapid heart beat, Denies shortness of breath Respiratory: Denies congestion, Denies cough, Denies cough with sputum, Denies dyspnea, Denies home oxygen, Denies wheezing Gastrointestinal: Endorses abdominal pain, endorses diarrhea Denies coffee ground emesis, Denies early satiety, Denies excessive gas, Denies heartburn, Denies hematemesis, Denies hematochezia, Denies loss of appetite, Denies nausea, Denies vomiting Genitourinary: Denies dysuria, Denies flank pain, Denies kidney stones, Denies menorrhagia, Denies urgency, Denies urinary frequency Musculoskeletal: Denies gait dysfunction, Denies limitation of motion, Denies morning stiffness, Denies muscle cramps Integumentary: Denies rash, Denies wounds, Denies brittle nails, Denies change in hair/nails, Denies darkening of skin Neurological: Denies balance difficulties, Denies change in speech, Denies double vision, Denies gait dysfunction, Denies loss of vision, Denies motor disturbance, Denies numbness, Denies paralysis, Denies paresthesias, Denies seizures Psychiatric: Denies anxiety, Denies depression Endocrine: Denies excessive sweating, Denies excessive thirst, Denies high blood sugars, Denies palpitations Hematologic/Lymphatic: Denies easy bruising, Denies lymphadenopathy Past Medical History Past Medical History: Atrial Fibrillation, Asthma, Coronary Artery Disease (CAD), Chest Pain / Angina, COPD, Deep Vein Thrombosis (DVT), GERD/Reflux, GI Bleed, Hypertension, Liver Disease, Memory Impairment, Myocardial Infarction (AK), Pneumonia, Respiratory Disorder, Sleep Apnea/CPAP/BIPAP, Vascular Disorder Additional Past Medical History / Comment(s): on 10/25/18 pt states was having pizza with family and food got stuck, pt had small amount of emesis. She went to bed and woke up to discover that she was incontinent of stool while she slept. Pt states that this has never happened.Patient continues to have difficulty swallowing like before. HEP C. Aortic aneurysm with stent-being monitored, Takosubu syndrome in 2016, R groin dissection/cardiac cath, recent bacteremia- blood cultures positive for veridans strep-completed antibiotics, bronchitis, home O2 at 3L/NC most of the time, LG without device-stable, DVT R leg, lower GI bleed, hepatitis C with Harvoni treatment, anemia with iron infusions x2, bilateral femoral head avascular necrosis, RLS, migraines, insomnia, constipation, overactive bladder, post menopausal bleed. Last Myocardial Infarction Date:: 07/2017 History of Any Multi-Drug Resistant Organisms: None Reported Past Surgical History: Bladder Surgery, Cholecystectomy, Heart Catheterization With Stent, Hysterectomy, Orthopedic Surgery Additional Past Surgical History / Comment(s): 11/28/17 lap albert, PCI with stent 2010, cardiac cath 07/2017-treat medically, common iliac artery stent 2005, exploratory lap, liver bx, R foot surgery d/t infection, R shoulder arthroscopic surgery, CAN, EGD, colonoscopy years ago, R leg varicose vein surgery, bladder suspension, eric cataract sx Past Anesthesia/Blood Transfusion Reactions: No Reported Reaction Date of Last Stent Placement:: 2010 Past Psychological History: Anxiety, Depression, Panic Disorder Smoking Status: Current every day smoker Past Alcohol Use History: None Reported Past Drug Use History: None Reported - Past Family History Brother(s) Family Medical History: Coronary Artery Disease (CAD), Myocardial Infarction ([place]) Father Additional Family Medical History / Comment(s): FROM CIRRHOSIS OF THE LIVER Mother Family Medical History: COPD Additional Family Medical History / Comment(s): FROM AAA, HAD HX of TB. Medications and Allergies Home Medications Medication Instructions Recorded Confirmed Type Pramipexole [Mirapex] 0.125 mg PO HS 09/12/14 07/13/19 History Tiotropium 18 Mcg/Puff [Spiriva] 1 cap INHALATION RT-BID 09/12/14 07/13/19 History DULoxetine HCL [Cymbalta] 60 mg PO BID 07/18/17 07/13/19 History Aspirin 81 mg PO DAILY chew 09/02/17 07/13/19 Rx Dexlansoprazole [Dexilant] 60 mg PO DAILY 12/12/17 07/13/19 History Nitroglycerin Sl Tabs [Nitrostat] 0.4 mg SUBLINGUAL Q5M PRN 12/12/17 07/13/19 History Albuterol Inhaler [Ventolin Hfa 1 - 2 puff INHALATION RT-Q6H PRN 10/08/18 07/13/19 History Inhaler] Butalb/APAP/Caff 50-325-40Mg 1 - 2 tab PO Q8H PRN 10/08/18 07/13/19 History [Fioricet 50-325-40] Ipratropium-Albuterol Nebulize 3 ml INHALATION RT-QID 10/08/18 07/13/19 History [Duoneb 0.5 mg-3 mg/3 ml Soln] Topiramate [Topamax] 50 mg PO BID 10/08/18 07/13/19 History cycloSPORINE [Restasis] 1 drop BOTH EYES BID 10/08/18 07/13/19 History Levothyroxine Sodium [Synthroid] 25 mcg PO DAILY 02/28/19 07/13/19 History Multivitamins, Thera [Multivitamin 1 tab PO DAILY 02/28/19 07/13/19 History (formulary)] Nebivolol [Bystolic] 5 mg PO BID 02/28/19 07/13/19 History Apixaban [Eliquis] 2.5 mg PO BID #60 tablet 03/02/19 07/13/19 Rx Fesoterodine Fumarate [Toviaz] 8 mg PO DAILY 03/03/19 07/13/19 History amLODIPine [Norvasc] 5 mg PO DAILY #30 tab 03/03/19 07/13/19 Rx ALPRAZolam [Xanax] 0.25 mg PO TID PRN #9 tab 06/24/19 07/13/19 Rx Acetaminophen Tab [Tylenol] 650 mg PO Q6HR PRN tab 06/24/19 07/13/19 Rx Dicyclomine [Bentyl] 10 mg PO QID PRN #0 tab 06/24/19 07/13/19 Rx Mirtazapine [Remeron] 7.5 mg PO HS tab 06/24/19 07/13/19 Rx HYDROcodone/APAP 5-325MG [[place] 1 tab PO Q6HR PRN 07/13/19 07/13/19 History 5-325] Allergies Allergy/AdvReac Type Severity Reaction Status Date / Time naproxen sodium [From Aleve] Allergy Severe Anaphylaxis Verified 07/13/19 07:21 adhesive Allergy Rash/Hives Verified 07/13/19 07:21 cinnamon [Cinnamon] Allergy Dyspnea Verified 07/13/19 07:21 clindamycin Allergy Anaphylaxis Verified 07/13/19 07:21 codeine Allergy Nausea & Verified 07/13/19 07:21 Vomiting gentamicin [Gentamicin] Allergy SWELLING Verified 07/13/19 07:21 OF FACE W/ EYE DROPS paola Allergy Dyspnea Verified 07/13/19 07:21 Iodinated Contrast Media Allergy Dyspnea Verified 07/13/19 07:21 [Iodinated Contrast- Oral and IV Dye] latex Allergy Rash/Hives Verified 07/13/19 07:21 levothyroxine sodium Allergy Unknown Verified 07/13/19 07:21 [From Synthroid] losartan Allergy Unknown Verified 07/13/19 07:21 montelukast sodium Allergy Wheezing Verified 07/13/19 07:21 [From Singulair] pantoprazole sodium Allergy Abdominal Verified 07/13/19 07:21 [From Protonix] Pain Penicillins Allergy Rash/Hives Verified 07/13/19 07:21 red dye Allergy Abdominal Verified 07/13/19 07:21 Pain Sulfa (Sulfonamide Allergy Swelling Verified 07/13/19 07:21 Antibiotics) IN MOUTH sulfamethoxazole Allergy swelling Verified 07/13/19 07:21 [From Bactrim] tongue sulfanilamide Allergy Unknown Verified 07/13/19 07:21 trimethoprim [From Bactrim] Allergy Swelling Verified 07/13/19 07:21 venom-honey bee Allergy Dyspnea Verified 07/13/19 07:21 [bee venom (honey bee)] BANDAIDS Allergy Rash/Hives Uncoded 06/18/19 13:19 Dye for gallbladder scan. Allergy Anaphylaxis Uncoded 06/18/19 13:19 tomatoes AdvReac Abdominal Uncoded 06/18/19 13:19 Pain Physical Exam Vitals: Vital Signs Temp Pulse Resp BP Pulse Ox 07/13/19 13:00 99.2 F 70 18 166/78 100 07/13/19 12:34 17 07/13/19 11:00 79 148/83 99 07/13/19 10:00 77 19 160/82 98 07/13/19 09:30 75 18 169/75 98 07/13/19 09:00 73 14 177/83 99 07/13/19 08:00 65 18 165/81 99 07/13/19 07:20 74 18 181/103 98 07/13/19 06:19 97.4 F L 80 18 185/103 98 Intake and Output 07/12/19 07/13/19 07/13/19 22:59 06:59 14:59 Other: Weight 34.201 kg - Constitutional General appearance: cooperative, no acute distress, cachectic - EENT Eyes: anicteric sclerae, PERRLA, normal appearance ENT: hearing grossly normal - Neck Neck: no lymphadenopathy, normal ROM, no other, no rigidity, no stridor, no thyromegaly - Respiratory Respiratory: bilateral: CTA, negative: diminished, dullness, rales, rhonchi - Cardiovascular Rhythm: Tachycardic Heart sounds: normal: S1, S2 Abnormal Heart Sounds: no systolic murmur, no diastolic murmur, no rub, no S3 Gallop, no S4 Gallop, no click, no other - Gastrointestinal General gastrointestinal: normal bowel sounds, soft tender in the pelvic region left lower quadrant - Integumentary Integumentary: no rash - Neurologic Neurologic: CNII-XII intact - Musculoskeletal Musculoskeletal: gait normal, strength equal bilaterally - Psychiatric Psychiatric: A&O x's 3, appropriate affect Results CBC & Chem 7: 07/13/19 06:42 07/13/19 06:42 Labs: Abnormal Lab Results - Last 24 Hours (Table) 07/13/19 07/13/19 07/13/19 Range/Units 06:42 06:42 06:42 WBC 11.1 H (3.8-10.6) k/uL Chloride 114 H (98-107) mmol/L Carbon Dioxide 17 L (22-30) mmol/L BUN 26 H (7-17) mg/dL Creatinine 1.91 H (0.52-1.04) mg/dL Glucose 140 H (74-99) mg/dL Plasma Lactic Acid [place] 2.3 H* (0.7-2.0) mmol/L AST 38 H (14-36) U/L Total Protein 6.2 L (6.3-8.2) g/dL Albumin 3.3 L (3.5-5.0) g/dL Amylase 113 H (30-110) U/L Urine Protein (Negative) Urine Blood (Negative) 07/13/19 Range/Units 08:15 WBC (3.8-10.6) k/uL Chloride (98-107) mmol/L Carbon Dioxide (22-30) mmol/L BUN (7-17) mg/dL Creatinine (0.52-1.04) mg/dL Glucose (74-99) mg/dL Plasma Lactic Acid [place] (0.7-2.0) mmol/L AST (14-36) U/L Total Protein (6.3-8.2) g/dL Albumin (3.5-5.0) g/dL Amylase (30-110) U/L Urine Protein 2+ H (Negative) Urine Blood Trace H (Negative) Thrombosis Risk Factor Assmnt - DVT/VTE Prophylaxis DVT/VTE Prophylaxis: Mechanical Prophylaxis ordered Assessment and Plan Plan: 1. Failure to thrive related todecreased oral intake of solids and chronic a bdominal pain. No finding on testing, swallow evaluation came back negative, long talk with the family especially the daughter in the past was done about the possibility of eating disorders but still insists of having her mom go for PEG tube for artificial feeding but patient refused to go for PEG tube last time 2. Abdominal pain no mesenteric ischemia was found no fistula the finding of suspicious of colitis with no symptoms to support at that this point patient is doing slightly better so far. Patient's symptoms are not consistent with ischemic colitis though patient have significant vascular disease. 3. Colovesical fistula ruled out by urology. Urology plans for outpatient cystoscopy. Radiology and testing had excluded as a possibility. 4. Acute kidney injury on CKD. Continue with hydration, monitor kidney function, limit nephrotoxic medications. 5. Leukocytosis likely due to dehydration continue IV fluids 6. Dysphagia is ruled out with swallow evaluation 7. lactic acidosis improved with IV fluids 8. Coronary artery disease, PCI with stent in 2010. Continue Eliquis, aspirin 9. Peripheral vascular disease, aortic aneurysm repair with stents. Continue E liquis, 10. Takosubu syndrome in 2016, stable still on medication. 11. Hepatitis C, stable 12. COPD Continue Ventolin, DuoNeb 13. History of DVT right lower leg. 14. Hypertension. Continue Norvasc, Bystolic, 15. Atrial fibrillation. Consult cardiology Continue Eliquis, 16. GERD. Continue Pepcid 20 mg 17. Depression, recurrent. Continue Cymbalta 18. Hypothyroidism. Continue Synthroid 20 mcg by mouth daily 19. Hyperlipidemia. Pravastatin 80 mg by mouth at bedtime 20. Restless leg syndrome. Continue Mirapex 21. Constipation. tap water enema
[2019-07-13] MEDS: ALPRAZolam 0.25 MG TAB PO PRN ×2 (15:28→23:20)
[2019-07-13] MEDS ORDERED: NA PHOS,M-B/NA PHOS,DI-BA 133 ML ENEMA RECTAL ONE (15:30)
[2019-07-13] MEDS: HYDROcodone/APAP 5-325MG 1 EACH TAB PO PRN (20:08)
[2019-07-13] MEDS: IPRATROPIUM 0.5 MG/2.5 ML NEBU INHALATION SCH (20:48)
[2019-07-13] MEDS ORDERED: PRAMIPEXOLE 0.125 MG TAB PO SCH (21:00)
[2019-07-13] MEDS: APIXABAN 2.5 MG TABLET PO SCH (21:35)
[2019-07-13] MEDS: MIRTAZAPINE 15 MG TAB PO SCH (21:35)
[2019-07-13] MEDS: TOPIRAMATE 25 MG TAB PO SCH (21:35)
[2019-07-13] MEDS: cycloSPORINE 0.05% OPHTH 0.4 ML DROPERETTE BOTH EYES SCH (21:36)
[2019-07-13] MEDS: DULoxetine HCL 60 MG CAPSULE.DR PO SCH (21:36)
[2019-07-14] MEDS: SODIUM CHLORIDE 0.9% 1,000 ML IV SCH ×2 (00:40→17:35)
[2019-07-14] MEDS: MULTIVITAMINS, THERA 1 EACH TAB PO SCH (07:58)
[2019-07-14] MEDS: DULoxetine HCL 60 MG CAPSULE.DR PO SCH (07:58)
[2019-07-14] MEDS: amLODIPine 5 MG TAB PO SCH (07:58)
[2019-07-14] MEDS: APIXABAN 2.5 MG TABLET PO SCH ×2 (07:58→21:10)
[2019-07-14] MEDS: TOPIRAMATE 25 MG TAB PO SCH ×2 (07:58→21:09)
[2019-07-14] MEDS: NEBIVOLOL 5 MG TAB PO SCH ×2 (07:59→21:09)
[2019-07-14] MEDS: LEVOTHYROXINE PO SCH (08:00)
[2019-07-14] MEDS: DEXLANSOPRAZOLE 60 MG PO SCH (08:00)
[2019-07-14] MEDS: cycloSPORINE 0.05% OPHTH 0.4 ML DROPERETTE BOTH EYES SCH ×2 (08:01→21:10)
[2019-07-14] MEDS: IPRATROPIUM 0.5 MG/2.5 ML NEBU INHALATION SCH ×4 (08:11→19:08)
--- NOTE | 2019-07-14 08:58 | XR ---
EXAMINATION TYPE: XR KUB DATE OF EXAM: 07/14/2019 COMPARISON: 07/13/2019 INDICATION: Follow-up previous abnormal x-ray TECHNIQUE: Single view abdomen frontal projection FINDINGS: Nonspecific bowel gas pattern is present. No mass effect is evident. Stool is decreased within the pe lvis. Psoas margins are normal. No organomegaly is present. There is a stent within the abdominal aorta. IMPRESSION: 1. Stable nonspecific abdomen
[2019-07-14] MEDS ORDERED: TROSPIUM CHLORIDE 20 MG TABLET PO SCH (09:00)
[2019-07-14] MEDS ORDERED: ASPIRIN 81 MG PO SCH (09:00)
[2019-07-14] MEDS: DICYCLOMINE 20 MG TAB PO PRN (10:58)
[2019-07-14 13:27] LABS: HGB 10.8 gm/dL (11.4-16.0); MCH 31.2 pg (25.0-35.0); MCHC 32.9 g/dL (31.0-37.0); Mean Platelet Volume 6.6; Platelet Count 247 k/uL (150-450); RBC 3.47 m/uL (3.80-5.40); RDW 14.8 % (11.5-15.5); WBC 7.2 k/uL (3.8-10.6)
[2019-07-14 13:52] LABS: Albumin 2.7 g/dL (3.5-5.0); Calcium 7.8 mg/dL (8.4-10.2); Total Bilirubin 0.3 mg/dL (0.2-1.3); Total Protein 5.4 g/dL (6.3-8.2)
--- NOTE | 2019-07-14 14:05 | P.PN ---
Subjective Progress Note Date: 07/14/19 This is a 69-year-old female with past medical history of peripheral vascular disease with a aortic aneurysm repair with stent, coronary artery disease with stent placement 2010, right lower extremity DVT, itch or fibrillation, COPD, acid reflux, GI bleed, hypertension, sleep apnea, hepatitis C, hyperlipidemia, hyperthyroid, restless leg syndrome who presented to the emergency room complaining of generalized weakness. She was just admitted on 06/20 for similar complaints and was discharged to [facility] where she was for 2 weeks and was discharged one week ago. Patient comes in with increased weakness and diarrhea and significant weight loss. Patient has pelvic abdominal pain for which multiple computed tomography scan and CT angiogram has been performed with no potential reason to explain for patient's abdominal pain. She was seen by her primary care doctor who prescribed Bentyl to help with her appetite and ordered a CT angiogram of the abdomen and pelvis that was done in April. Abdominal pain- The results of the CT angiogram shows stable thoracic aortic aneurysm, aortoiliac stent graft within the abdomen is patent throughout its course. An attenuated external iliac artery to provide blood flow to the level of the common femoral arteries, extensive ball use emphysmatous change, asymmetric function of the kidneys with atopic right kidney functioning better than the left. Patient had a CT of the abdomen and pelvis without contrast performed 06/18/2019 impression: 1. Air-fluid level within the urinary bladder, correlate for colovesical fistula. Urology ruled out fistula and plan to do cystoscopy as outpatient in [address] from April was reviewed no evidence of mesenteric ischemia noted. Patient was seen by surgery, colonoscopy was reviewed from October no fistula was noted however the scope was incomplete due to incomplete prep. Weight loss - Patient underwent barium swallow which is reported as unremarkable. Patient is able to eat but stayed because of her weakness she is unable to fix her own meals. She did not have any episode of diarrhea while she was at [facility] but when she was discharged she started having the diarrhea episodes again. She states grandson was helping with the meal prep and was getting meals on wheels but was not able to eat anything because of diarrhea. Multiple discussions were made during last hospitalization for PEG tube placement but patient refused to get it. Psychiatry evaluation was negative for anorexia nervosa. Patient has the ability to eat but is currently refusing PEG tube Patient came to the ER as she was getting significantly weak and passed out after having a diarrheal episode this morning and decided to call the ambulance. Evaluation of white as patient had temp of 99.2 pulse 70 blood pressure 166/78 oxygen 100% on 2 L. WBC suggests a leukocyte of 11.1 chloride 114 UN 26 creatinine 1.91 increased from baseline of 1.36 lactic acid was increased to 2.3 glucose is 140. We will start patient on bowel regimen and have gastroenterology consulted for possible PEG tube placement and colonoscopy to evaluate the bowels 07/14: Patient is found sitting up eating a salad for lunch. She denies having any more diarrhea. She did have 2 bowel movements and did not require enema. Reviewed prior records and patient has not had any recent weight loss from previous admission. Consult added for . We are discontinuing aspirin, Mirapex, trospium and decreasing Cymbalta as they may all interfere with abdominal symptoms. Patient has been afebrile, heart rate 61, blood pressure 133/59, pulse ox 90% on room air. Repeat lab work reveals a normal white count of 7.2, hemoglobin 10.8, potassium 3.0 and will be replaced, BUN 15 and creatinine 1.52. Review of Systems Constitutional: Denies chills, Denies fever, endorses poor appetite, weakness, weight loss Eyes: denies decreased vision, denies diplopia, denies discharge, denies pain Ears: deny: decreased hearing Ears, nose, mouth and throat: Denies dental pain, Denies headache, Denies nasal discharge, Denies nose pain Cardiovascular: Denies chest pain, Denies decreased exercise tolerance, Denies edema, Denies high blood pressure, Denies irregular heart beat, Denies palpitations, Denies paroxysmal nocturnal dyspnea, Denies rapid heart beat, Denies shortness of breath Respiratory: Denies congestion, Denies cough, Denies cough with sputum, Denies dyspnea, Denies home oxygen, Denies wheezing Gastrointestinal: Endorses abdominal pain, denies diarrhea Denies coffee ground emesis, Denies early satiety, Denies excessive gas, Denies heartburn, Denies hematemesis, Denies hematochezia, Denies loss of appetite, Denies nausea, Denies vomiting Genitourinary: Denies dysuria, Denies flank pain, Denies kidney stones, Denies menorrhagia, Denies urgency, Denies urinary frequency Musculoskeletal: Denies gait dysfunction, Denies limitation of motion, Denies morning stiffness, Denies muscle cramps Integumentary: Denies rash, Denies wounds, Denies brittle nails, Denies change in hair/nails, Denies darkening of skin Neurological: Denies balance difficulties, Denies change in speech, Denies double vision, Denies gait dysfunction, Denies loss of vision, Denies motor disturbance, Denies numbness, Denies paralysis, Denies paresthesias, Denies seizures Psychiatric: Denies anxiety, Denies depression Endocrine: Denies excessive sweating, Denies excessive thirst, Denies high blood sugars, Denies palpitations Hematologic/Lymphatic: Denies easy bruising, Denies lymphadenopathy Objective - Vital Signs Vital signs: Vital Signs Temp 97.0 F L 07/14/19 05:00 Pulse 61 07/14/19 05:00 Resp 18 07/14/19 08:00 BP 133/59 07/14/19 05:00 Pulse Ox 98 07/14/19 05:00 Intake & Output 07/13/19 07/14/19 07/14/19 18:59 06:59 18:59 Intake Total 950 320 Balance 950 320 Weight 34.201 kg 34.201 kg Intake: Oral 950 320 Other: Voiding Method Diaper Bedpan Incontinent # Voids 7 # Bowel Movements 3 - Exam General appearance: cooperative, cachectic, patient sitting up on the edge of the bed eating lunch and appears to be in no acute distress - EENT Eyes: anicteric sclerae, PERRLA, normal appearance ENT: hearing grossly normal - Neck Neck: no lymphadenopathy, normal ROM, no other, no rigidity, no stridor, no thyromegaly - Respiratory Respiratory: bilateral: CTA, negative: diminished, dullness, rales, rhonchi - Cardiovascular Rhythm: Tachycardic Heart sounds: normal: S1, S2 Abnormal Heart Sounds: no systolic murmur, no diastolic murmur, no rub, no S3 Gallop, no S4 Gallop, no click, no other - Gastrointestinal General gastrointestinal: normal bowel sounds, soft tender in the pelvic region left lower quadrant - Integumentary Integumentary: no rash - Neurologic Neurologic: CNII-XII intact - Musculoskeletal Musculoskeletal: gait normal, strength equal bilaterally - Psychiatric Psychiatric: A&O x's 3, appropriate affect - Labs CBC & Chem 7: 07/14/19 13:09 07/14/19 13:09 Assessment and Plan Plan: 1. Failure to thrive related todecreased oral intake of solids and chronic abdominal pain. No finding on testing, swallow evaluation came back negative, long talk with the family especially the daughter in the past was done about the possibility of eating disorders but still insists of having her mom go for PEG tube for artificial feeding but patient refused to go for PEG tube last time. Patient is not a candidate for PEG tube as she is able to eat and swallow without any difficulties and insurance will not cover PEG tube supplies. Consult with GI. 2. Abdominal pain no mesenteric ischemia was found no fistula the finding of suspicious of colitis with no symptoms to support at that this point patient is doing slightly better so far. Patient's symptoms are not consistent with ischemic colitis though patient have significant vascular disease. 3. Colovesical fistula ruled out by urology. Urology plans for outpatient cystoscopy. Radiology and testing had excluded as a possibility. 4. Acute kidney injury on CKD. Continue with hydration, monitor kidney function, limit nephrotoxic medications. 5. Leukocytosis likely due to dehydration continue IV fluids 6. Dysphagia is ruled out with swallow evaluation 7. lactic acidosis improved with IV fluids 8. Coronary artery disease, PCI with stent in 2010. Continue Eliquis, aspirin 9. Peripheral vascular disease, aortic aneurysm repair with stents. Continue Eliquis, 10. Takosubu syndrome in 2016, stable still on medication. 11. Hepatitis C, stable 12. COPD Continue Ventolin, DuoNeb 13. History of DVT right lower leg. 14. Hypertension. Continue Norvasc, Bystolic, 15. Atrial fibrillation. Consult cardiology Continue Eliquis, 16. GERD. Continue Pepcid 20 mg 17. Depression, recurrent. Continue Cymbalta 18. Hypothyroidism. Continue Synthroid 20 mcg by mouth daily 19. Hyperlipidemia. Pravastatin 80 mg by mouth at bedtime 20. Restless leg syndrome. Continue Mirapex 21. Constipation. tap water enema Discharge plan: Home with [facility] in next 24-48 hours. Impression and plan of care have been directed as dictated by the signing physician. Coby Joaquin nurse practitioner acting as scribe for signing physician.
[2019-07-14] MEDS: ALPRAZolam 0.25 MG TAB PO PRN (16:40)
[2019-07-14] MEDS: DULoxetine HCL 30 MG CAPSULE.DR PO SCH (21:10)
[2019-07-14] MEDS: MIRTAZAPINE 15 MG TAB PO SCH (21:10)
[2019-07-14] MEDS: HYDROcodone/APAP 5-325MG 1 EACH TAB PO PRN (21:16)
[2019-07-15] MEDS: SODIUM CHLORIDE 0.9% 1,000 ML IV SCH ×2 (02:04→17:57)
[2019-07-15] MEDS: LEVOTHYROXINE PO SCH (05:39)
[2019-07-15] MEDS: NEBIVOLOL 5 MG TAB PO SCH ×2 (08:18→21:43)
[2019-07-15] MEDS: APIXABAN 2.5 MG TABLET PO SCH ×2 (08:18→21:43)
[2019-07-15] MEDS: amLODIPine 5 MG TAB PO SCH (08:18)
[2019-07-15] MEDS: DULoxetine HCL 30 MG CAPSULE.DR PO SCH ×2 (08:19→21:43)
[2019-07-15] MEDS: MULTIVITAMINS, THERA 1 EACH TAB PO SCH (08:19)
[2019-07-15] MEDS: TOPIRAMATE 25 MG TAB PO SCH ×2 (08:19→21:43)
[2019-07-15] MEDS: cycloSPORINE 0.05% OPHTH 0.4 ML DROPERETTE BOTH EYES SCH ×2 (08:20→21:43)
[2019-07-15] MEDS: DEXLANSOPRAZOLE 60 MG PO SCH (08:22)
[2019-07-15] MEDS: DICYCLOMINE 20 MG TAB PO PRN (08:25)
[2019-07-15] MEDS: IPRATROPIUM 0.5 MG/2.5 ML NEBU INHALATION SCH ×4 (09:03→20:31)
[2019-07-15 09:56] LABS: HCT 32.2 % (34.0-46.0); HGB 10.5 gm/dL (11.4-16.0); MCH 30.7 pg (25.0-35.0); MCHC 32.7 g/dL (31.0-37.0); MCV 93.7 fL (80.0-100.0); Mean Platelet Volume 6.5; Platelet Count 201 k/uL (150-450); RBC 3.43 m/uL (3.80-5.40); RDW 14.8 % (11.5-15.5); WBC 6.6 k/uL (3.8-10.6)
[2019-07-15] MEDS: CALCIUM CARBONATE 500 MG CHEWABLE PO SCH ×3 (10:14→21:43)
[2019-07-15 10:20] LABS: Albumin 2.5 g/dL (3.5-5.0); Calcium 8.1 mg/dL (8.4-10.2); Potassium 3.2 mmol/L (3.5-5.1); Total Bilirubin 0.2 mg/dL (0.2-1.3); Total Protein 5.1 g/dL (6.3-8.2)
--- NOTE | 2019-07-15 12:27 | P.PN ---
Subjective Progress Note Date: 07/15/19 This is a 69-year-old female with past medical history of peripheral vascular disease with a aortic aneurysm repair with stent, coronary artery disease with stent placement 2010, right lower extremity DVT, itch or fibrillation, COPD, acid reflux, GI bleed, hypertension, sleep apnea, hepatitis C, hyperlipidemia, hyperthyroid, restless leg syndrome who presented to the emergency room complaining of generalized weakness. She was just admitted on 06/20 for similar complaints and was discharged to [facility] where she was for 2 weeks and was discharged one week ago. Patient comes in with increased weakness and diarrhea and significant weight loss. Patient has pelvic abdominal pain for which multiple computed tomography scan and CT angiogram has been performed with no potential reason to explain for patient's abdominal pain. She was seen by her primary care doctor who prescribed Bentyl to help with her appetite and ordered a CT angiogram of the abdomen and pelvis that was done in April. Abdominal pain- The results of the CT angiogram shows stable thoracic aortic aneurysm, aortoiliac stent graft within the abdomen is patent throughout its course. An attenuated external iliac artery to provide blood flow to the level of the common femoral arteries, extensive ball use emphysmatous change, asymmetric function of the kidneys with atopic right kidney functioning better than the left. Patient had a CT of the abdomen and pelvis without contrast performed 06/18/2019 impression: 1. Air-fluid level within the urinary bladder, correlate for colovesical fistula. Urology ruled out fistula and plan to do cystoscopy as outpatient in [address] from April was reviewed no evidence of mesenteric ischemia noted. Patient was seen by surgery, colonoscopy was reviewed from October no fistula was noted however the scope was incomplete due to incomplete prep. Weight loss - Patient underwent barium swallow which is reported as unremarkable. Patient is able to eat but stayed because of her weakness she is unable to fix her own meals. She did not have any episode of diarrhea while she was at [facility] but when she was discharged she started having the diarrhea episodes again. She states grandson was helping with the meal prep and was getting meals on wheels but was not able to eat anything because of diarrhea. Multiple discussions were made during last hospitalization for PEG tube placement but patient refused to get it. Psychiatry evaluation was negative for anorexia nervosa. Patient has the ability to eat but is currently refusing PEG tube Patient came to the ER as she was getting significantly weak and passed out after having a diarrheal episode this morning and decided to call the ambulance. Evaluation of white as patient had temp of 99.2 pulse 70 blood pressure 166/78 oxygen 100% on 2 L. WBC suggests a leukocyte of 11.1 chloride 114 UN 26 creatinine 1.91 increased from baseline of 1.36 lactic acid was increased to 2.3 glucose is 140. We will start patient on bowel regimen and have gastroenterology consulted for possible PEG tube placement and colonoscopy to evaluate the bowels 07/14: Patient is found sitting up eating a salad for lunch. She denies having any more diarrhea. She did have 2 bowel movements and did not require enema. Reviewed prior records and patient has not had any recent weight loss from previous admission. Consult added for . We are discontinuing aspirin, Mirapex, trospium and decreasing Cymbalta as they may all interfere with abdominal symptoms. Patient has been afebrile, heart rate 61, blood pressure 133/59, pulse ox 90% on room air. Repeat lab work reveals a normal white count of 7.2, hemoglobin 10.8, potassium 3.0 and will be replaced, BUN 15 and creatinine 1.52. 07/15: Patient is found resting in bed. She was able to eat three fourths of her breakfast this morning. Patient is denying constipation at this time. Patient states that her abdominal pain and nausea has returned. Medications were decreased last night. Patient is concerned about the decreased due to her anxiety. Patient has been afebrile. Heart rate 63, pulse ox 96, blood pressure 162/64, respirations 16. WAC 6.6, hemoglobin 10.5, potassium 3.2, creatinine 1.43, BUN 15. C. diff was negative Review of Systems Constitutional: Denies chills, Denies fever, endorses poor appetite, weakness, weight loss Eyes: denies decreased vision, denies diplopia, denies discharge, denies pain Ears: deny: decreased hearing Ears, nose, mouth and throat: Denies dental pain, Denies headache, Denies nasal discharge, Denies nose pain Cardiovascular: Denies chest pain, Denies decreased exercise tolerance, Denies edema, Denies high blood pressure, Denies irregular heart beat, Denies palpitations, Denies paroxysmal nocturnal dyspnea, Denies rapid heart beat, Denies shortness of breath Respiratory: Denies congestion, Denies cough, Denies cough with sputum, Denies dyspnea, Denies home oxygen, Denies wheezing Gastrointestinal: Endorses abdominal pain, denies diarrhea Denies coffee ground emesis, Denies early satiety, Denies excessive gas, Denies heartburn, Denies hematemesis, Denies hematochezia, Denies loss of appetite, Denies nausea, Denies vomiting Genitourinary: Denies dysuria, Denies flank pain, Denies kidney stones, Denies menorrhagia, Denies urgency, Denies urinary frequency Musculoskeletal: Denies gait dysfunction, Denies limitation of motion, Denies morning stiffness, Denies muscle cramps Integumentary: Denies rash, Denies wounds, Denies brittle nails, Denies change in hair/nails, Denies darkening of skin Neurological: Denies balance difficulties, Denies change in speech, Denies do uble vision, Denies gait dysfunction, Denies loss of vision, Denies motor disturbance, Denies numbness, Denies paralysis, Denies paresthesias, Denies seizures Psychiatric: Denies anxiety, Denies depression Endocrine: Denies excessive sweating, Denies excessive thirst, Denies high blood sugars, Denies palpitations Hematologic/Lymphatic: Denies easy bruising, Denies lymphadenopathy Objective - Vital Signs Vital signs: Vital Signs Temp 97.9 F 07/15/19 05:00 Pulse 63 07/15/19 05:00 Resp 18 07/15/19 08:00 BP 162/64 07/15/19 05:00 Pulse Ox 96 07/15/19 05:00 Intake & Output 07/14/19 07/15/19 07/15/19 18:59 06:59 18:59 Intake Total 520 850 200 Balance 520 850 200 Weight 34.201 kg 34 kg Intake: Oral 520 850 200 Other: Voiding Method Bedpan Bedpan Bedpan # Voids 2 3 - Exam General Appearance: Alert, cooperative, no distress, appears older stated age. cachectic. Neck HEENT: Supple, no lymphadenopathy, no thyroid enlargement, no carotid bruits. Lungs: Clear to auscultation without crackles or wheezes no rhonchi, no deformity. Chest Wall: Chest wall normal expansion with deep inspiration no tenderness and no deformity was found on exam, no costochondral pain or discomfort. Heart: Regular rate and rhythm, S1, S2 normal, no murmur, rub or gallop. Back: Symmetric, no curvature, ROM normal, no CVA tenderness. Abdomen: Soft, non-tender, no rebound or rigidity, no hepatosplenomegaly. Extremities: Extremities normal, atraumatic, no cyanosis or edema. Pulses: 2+ and symmetric. Skin: Skin color, texture, tugor normal, no rashes or lesions. Neurologic: Alert oriented x3 cranial nerves II through XII intact, no motor deficit, no abnormal balance or gait - Labs CBC & Chem 7: 07/15/19 09:19 07/15/19 09:19 Labs: Abnormal Lab Results - Last 24 Hours (Table) 07/14/19 07/14/19 07/15/19 Range/Units 13:09 13: 09:19 RBC 3.47 L 3.43 L (3.80-5.40) m/uL Hgb 10.8 L 10.5 L (11.4-16.0) gm/dL Hct 33.0 L 32.2 L (34.0-46.0) % Potassium 3.0 L (3.5-5.1) mmol/L Chloride 113 H (98-107) mmol/L Creatinine 1.52 H (0.52-1.04) mg/dL Calcium 7.8 L (8.4-10.2) mg/dL Total Protein 5.4 L (6.3-8.2) g/dL Albumin 2.7 L (3.5-5.0) g/dL 07/15/19 Range/Units 09:19 RBC (3.80-5.40) m/uL Hgb (11.4-16.0) gm/dL Hct (34.0-46.0) % Potassium 3.2 L (3.5-5.1) mmol/L Chloride 115 H (98-107) mmol/L Creatinine 1.43 H (0.52-1.04) mg/dL Calcium 8.1 L (8.4-10.2) mg/dL Total Protein 5.1 L (6.3-8.2) g/dL Albumin 2.5 L (3.5-5.0) g/dL Assessment and Plan Plan: 1. Failure to thrive related todecreased oral intake of solids and chronic abdominal pain. No finding on testing, swallow evaluation came back negative, long talk with the family especially the daughter in the past was done about the possibility of eating disorders but still insists of having her mom go for PEG tube for artificial feeding but patient refused to go for PEG tube last time. Patient is not a candidate for PEG tube as she is able to eat and swallow without any difficulties and insurance will not cover PEG tube supplies. Consult with GI. 2. Abdominal pain no mesenteric ischemia was found no fistula the finding of suspicious of colitis with no symptoms to support at that this point patient is doing slightly better so far. Patient's symptoms are not consistent with ischemic colitis though patient have significant vascular disease. 3. Colovesical fistula ruled out by urology. Urology plans for outpatient cystoscopy. Radiology and testing had excluded as a possibility. 4. Acute kidney injury on CKD. Continue with hydration, monitor kidney function, limit nephrotoxic medications. 5. Leukocytosis likely due to dehydration continue IV fluids 6. Dysphagia is ruled out with swallow evaluation 7. lactic acidosis improved with IV fluids 8. Coronary artery disease, PCI with stent in 2010. Continue Eliquis, aspirin 9. Peripheral vascular disease, aortic aneurysm repair with stents. Continue Eliquis, 10. Takosubu syndrome in 2016, stable still on medication. 11. Hepatitis C, stable 12. COPD Continue Ventolin, DuoNeb 13. History of DVT right lower leg. 14. Hypertension. Continue Norvasc, Bystolic, 15. Atrial fibrillation. Consult cardiology Continue Eliquis, 16. GERD. Continue Pepcid 20 mg 17. Depression, recurrent. Continue Cymbalta 18. Hypothyroidism. Continue Synthroid 20 mcg by mouth daily 19. Hyperlipidemia. Pravastatin 80 mg by mouth at bedtime 20. Restless leg syndrome. Continue Mirapex 21. Constipation. tap water enema Discharge plan: Consult social work for possible rehab placement, or Home with [facility] in next 24-48 hours. Impression and plan of care have been directed as dictated by the signing physician. Nayana Torre nurse practitioner acting as scribe for signing physician.
[2019-07-15] MEDS: HYDROcodone/APAP 5-325MG 1 EACH TAB PO PRN ×2 (12:40→23:59)
[2019-07-15] MEDS: MIRTAZAPINE 15 MG TAB PO SCH (21:43)
[2019-07-15 22:44] VITALS: PULSE 61
[2019-07-16] MEDS: LEVOTHYROXINE PO SCH (05:05)
[2019-07-16 05:12] VITALS: BP 179/66; TEMP 98.3
[2019-07-16] MEDS: SODIUM CHLORIDE 0.9% 1,000 ML IV SCH (05:16)
[2019-07-16] MEDS: IPRATROPIUM 0.5 MG/2.5 ML NEBU INHALATION SCH (07:38)
[2019-07-16] MEDS: MULTIVITAMINS, THERA 1 EACH TAB PO SCH (08:24)
[2019-07-16] MEDS: DULoxetine HCL 30 MG CAPSULE.DR PO SCH (08:24)
[2019-07-16] MEDS: amLODIPine 5 MG TAB PO SCH (08:24)
[2019-07-16] MEDS: TOPIRAMATE 25 MG TAB PO SCH (08:24)
[2019-07-16] MEDS: CALCIUM CARBONATE 500 MG CHEWABLE PO SCH (08:24)
[2019-07-16] MEDS: APIXABAN 2.5 MG TABLET PO SCH (08:24)
[2019-07-16] MEDS: DEXLANSOPRAZOLE 60 MG PO SCH (08:25)
[2019-07-16] MEDS: NEBIVOLOL 5 MG TAB PO SCH (08:25)
[2019-07-16] MEDS: cycloSPORINE 0.05% OPHTH 0.4 ML DROPERETTE BOTH EYES SCH (08:25)
[2019-07-16 08:54] VITALS: RESP 18
--- NOTE | 2019-07-16 09:46 | P.CONS ---
History of Present Illness - Reason for Consult Consult date: 07/15/19 Abdominal pain, diarrhea Requesting physician: Riri Bailey - Chief Complaint Abdominal pain, decreased oral intake, diarrhea - History of Present Illness 69-year-old female with multiple medical comorbidities including peripheral vascular disease status post aortic aneurysm stent placement, coronary artery disease, prior DVT, atrial fibrillation, COPD, GERD, hypertension, LG, hepatitis C, thyroid is, anxiety and depression, irritable bowel syndrome who presented to the hospital due to weakness, abdominal pain and diarrhea. The patient has been seen in the hospital previously for similar complaints. At that time she was also complaining of dysphagia for which she underwent a video swallow which was normal with no evidence of aspiration. She also had similar complaints when she underwent endoscopic evaluation in 10/2018 with EGD significant only for a hiatal hernia and gastritis as well as an incomplete colonoscopy due to a poor prep. She has had imaging in the past with findings of air-fluid levels in the bladder concerning for possible fistula however has been evaluated by urology who did not feel she has symptoms consistent with this diagnosis. The patient was questioned about her symptoms and states that she does feel that are improved flow she was at a rehabilitation facility but then worsened when she was at home. She does report that she feels there is a component of stress and anxiety which play into her symptoms. She had initially complained of constipation but is now saying that she was having diarrhea. She did have testing for Clostridium difficile which was found to be negative. She is also complaining about titration of her psych medications. Review of Systems REVIEW OF SYSTEMS: CONSTITUTIONAL: Denies any fevers, chills, but does report fatigue and weight loss. CARDIOVASCULAR: Denies any chest pain, palpitations high or low blood pressures RESPIRATORY: Denies any shortness of breath, hemoptysis or cough. GENITOURINARY: No dysuria or hematuria. MUSCULOSKELETAL: No weakness reported. SKIN: Denies any new rashes or lesions, jaundice or pallor. PSYCHIATRIC: History of eating disorder, depression and anxiety. NEUROLOGY: Denies headache, denies any new focal deficits. EARS/NOSE/THROAT: No recent hearing change, congestion, nasal discharge or sore throat. EYES: No pain in eyes, discharge or change in vision. GASTROINTESTINAL: As per HPI. Past Medical History Past Medical History: Atrial Fibrillation, Asthma, Coronary Artery Disease (CAD), Chest Pain / Angina, COPD, Deep Vein Thrombosis (DVT), GERD/Reflux, GI Bleed, Hypertension, Liver Disease, Memory Impairment, Myocardial Infarction (ID), Pneumonia, Respiratory Disorder, Sleep Apnea/CPAP/BIPAP, Vascular Disorder Additional Past Medical History / Comment(s): on 10/25/18 pt states was having pizza with family and food got stuck, pt had small amount of emesis. She went to bed and woke up to discover that she was incontinent of stool while she slept. Pt states that this has never happened.Patient continues to have difficulty swallowing like before. HEP C. Aortic aneurysm with stent-being monitored, Takosubu syndrome in 2016, R groin dissection/cardiac cath, recent bacteremia- blood cultures positive for veridans strep-completed antibiotics, bronchitis, home O2 at 3L/NC most of the time, LG without device-stable, DVT R leg, lower GI bleed, hepatitis C with Harvoni treatment, anemia with iron infusions x2, bi lateral femoral head avascular necrosis, RLS, migraines, insomnia, constipation, overactive bladder, post menopausal bleed. Last Myocardial Infarction Date:: 07/2017 History of Any Multi-Drug Resistant Organisms: None Reported Past Surgical History: Bladder Surgery, Cholecystectomy, Heart Catheterization With Stent, Hysterectomy, Orthopedic Surgery Additional Past Surgical History / Comment(s): 11/28/17 lap albert, PCI with stent 2010, cardiac cath 07/2017-treat medically, common iliac artery stent 2005, exploratory lap, liver bx, R foot surgery d/t infection, R shoulder arthroscopic surgery, CAN, EGD, colonoscopy years ago, R leg varicose vein surgery, bladder suspension, eric cataract sx Past Anesthesia/Blood Transfusion Reactions: No Reported Reaction Date of Last Stent Placement:: 2010 Past Psychological History: Anxiety, Depression, Panic Disorder Smoking Status: Current every day smoker Past Alcohol Use History: None Reported Past Drug Use History: None Reported - Past Family History Brother(s) Family Medical History: Coronary Artery Disease (CAD), Myocardial Infarction (ID ) Father Additional Family Medical History / Comment(s): FROM CIRRHOSIS OF THE LIVER Mother Family Medical History: COPD Additional Family Medical History / Comment(s): FROM AAA, HAD HX of TB. Medications and Allergies Home Medications Medication Instructions Recorded Confirmed Type Pramipexole [Mirapex] 0.125 mg PO HS 09/12/14 07/13/19 History Tiotropium 18 Mcg/Puff [Spiriva] 1 cap INHALATION RT-BID 09/12/14 07/13/19 History DULoxetine HCL [Cymbalta] 60 mg PO BID 07/18/17 07/13/19 History Aspirin 81 mg PO DAILY chew 09/02/17 07/13/19 Rx Dexlansoprazole [Dexilant] 60 mg PO DAILY 12/12/17 07/13/19 History Nitroglycerin Sl Tabs [Nitrostat] 0.4 mg SUBLINGUAL Q5M PRN 12/12/17 07/13/19 History Albuterol Inhaler [Ventolin Hfa 1 - 2 puff INHALATION RT-Q6H PRN 10/08/18 07/13/19 History Inhaler] Butalb/APAP/Caff 50-325-40Mg 1 - 2 tab PO Q8H PRN 10/08/18 07/13/19 History [Fioricet 50-325-40] Ipratropium-Albuterol Nebulize 3 ml INHALATION RT-QID 10/08/18 07/13/19 History [Duoneb 0.5 mg-3 mg/3 ml Soln] Topiramate [Topamax] 50 mg PO BID 10/08/18 07/13/19 History cycloSPORINE [Restasis] 1 drop BOTH EYES BID 10/08/18 07/13/19 History Levothyroxine Sodium [Synthroid] 25 mcg PO DAILY 02/28/19 07/13/19 History Multivitamins, Thera [Multivitamin 1 tab PO DAILY 02/28/19 07/13/19 History (formulary)] Nebivolol [Bystolic] 5 mg PO BID 02/28/19 07/13/19 History Apixaban [Eliquis] 2.5 mg PO BID #60 tablet 03/02/19 07/13/19 Rx Fesoterodine Fumarate [Toviaz] 8 mg PO DAILY 03/03/19 07/13/19 History amLODIPine [Norvasc] 5 mg PO DAILY #30 tab 03/03/19 07/13/19 Rx ALPRAZolam [Xanax] 0.25 mg PO TID PRN #9 tab 06/24/19 07/13/19 Rx Acetaminophen Tab [Tylenol] 650 mg PO Q6HR PRN tab 06/24/19 07/13/19 Rx Dicyclomine [Bentyl] 10 mg PO QID PRN #0 tab 06/24/19 07/13/19 Rx Mirtazapine [Remeron] 7.5 mg PO HS tab 06/24/19 07/13/19 Rx HYDROcodone/APAP 5-325MG [[place] 1 tab PO Q6HR PRN 07/13/19 07/13/19 History 5-325] Allergies Allergy/AdvReac Type Severity Reaction Status Date / Time naproxen sodium [From Aleve] Allergy Severe Anaphylaxis Verified 07/13/19 07:21 adhesive Allergy Rash/Hives Verified 07/13/19 07:21 cinnamon [Cinnamon] Allergy Dyspnea Verified 07/13/19 07:21 clindamycin Allergy Anaphylaxis Verified 07/13/19 07:21 codeine Allergy Nausea & Verified 07/13/19 07:21 Vomiting gentamicin [Gentamicin] Allergy SWELLING Verified 07/13/19 07:21 OF FACE W/ EYE DROPS paola Allergy Dyspnea Verified 07/13/19 07:21 Iodinated Contrast Media Allergy Dyspnea Verified 07/13/19 07:21 [Iodinated Contrast- Oral and IV Dye] latex Allergy Rash/Hives Verified 07/13/19 07:21 levothyroxine sodium Allergy Unknown Verified 07/13/19 07:21 [From Synthroid] losartan Allergy Unknown Verified 07/13/19 07:21 montelukast sodium Allergy Wheezing Verified 07/13/19 07:21 [From Singulair] pantoprazole sodium Allergy Abdominal Verified 07/13/19 07:21 [From Protonix] Pain Penicillins Allergy Rash/Hives Verified 07/13/19 07:21 red dye Allergy Abdominal Verified 07/13/19 07:21 Pain Sulfa (Sulfonamide Allergy Swelling Verified 07/13/19 07:21 Antibiotics) IN MOUTH sulfamethoxazole Allergy swelling Verified 07/13/19 07:21 [From Bactrim] tongue sulfanilamide Allergy Unknown Verified 07/13/19 07:21 trimethoprim [From Bactrim] Allergy Swelling Verified 07/13/19 07:21 venom-honey bee Allergy Dyspnea Verified 07/13/19 07:21 [bee venom (honey bee)] BANDAIDS Allergy Rash/Hives Uncoded 06/18/19 13:19 Dye for gallbladder scan. Allergy Anaphylaxis Uncoded 06/18/19 13:19 tomatoes AdvReac Abdominal Uncoded 06/18/19 13:19 Pain Physical Exam Vitals: Vital Signs Temp Pulse Resp BP Pulse Ox 07/15/19 08:00 18 07/15/19 05:00 97.9 F 63 18 162/64 96 07/14/19 22:20 183/55 07/14/19 21:00 97.8 F 71 18 189/70 100 07/14/19 14:26 98.4 F 66 20 149/54 100 Intake and Output 07/14/19 07/15/19 07/15/19 22:59 06:59 14:59 Intake Total 350 500 200 Balance 350 500 200 Intake: Oral 350 500 200 Other: Voiding Method Bedpan Bedpan # Voids 4 3 Weight 34 kg On physical examination, patient appears comfortable in no apparent distress. HEAD: Normocephalic, atraumatic. EYES: No scleral icterus. No conjunctival injection. MOUTH: No lesions, tongue midline. NECK: Trachea midline, no gross abnormalities. CHEST: Clear to auscultation with no wheezing or rhonchi appreciated. HEART: S1-S2 appreciated. ABDOMEN: Soft, thin. Bowel sounds are positive. No organomegaly. No guarding or rigidity. EXTREMITIES: Thin/cachectic. SKIN: No rashes, no jaundice. NEUROLOGIC: Alert and oriented x3. No focal deficits. Results CBC & Chem 7: 07/15/19 09:19 07/15/19 09:19 Labs: Abnormal Lab Results - Last 24 Hours (Table) 07/14/19 07/14/19 07/15/19 Range/Units 13:09 13:09 09:19 RBC 3.47 L 3.43 L (3.80-5.40) m/uL Hgb 10.8 L 10.5 L (11.4-16.0) gm/dL Hct 33.0 L 32.2 L (34.0-46.0) % Potassium 3.0 L (3.5-5.1) mmol/L Chloride 113 H (98-107) mmol/L Creatinine 1.52 H (0.52-1.04) mg/dL Calcium 7.8 L (8.4-10.2) mg/dL Total Protein 5.4 L (6.3-8.2) g/dL Albumin 2.7 L (3.5-5.0) g/dL 07/15/19 Range/Units 09:19 RBC (3.80-5.40) m/uL Hgb (11.4-16.0) gm/dL Hct (34.0-46.0) % Potassium 3.2 L (3.5-5.1) mmol/L Chloride 115 H (98-107) mmol/L Creatinine 1.43 H (0.52-1.04) mg/dL Calcium 8.1 L (8.4-10.2) mg/dL Total Protein 5.1 L (6.3-8.2) g/dL Albumin 2.5 L (3.5-5.0) g/dL Abdominal x-ray: report reviewed (Stable non specific abdomen on XR) Assessment and Plan (1) Abdominal pain Narrative/Plan: 69-year-old female with multiple medical comorbidities including irritable bowel syndrome and chronic abdominal pain. Last evaluation with endoscopy was in 10/2018 with a normal EGD except for findings of some mild gastritis and a hiatal hernia and incomplete colonoscopy due to poor prep. Unknown etiology of patient's pain with suspicion that a large component is functional and stress induced as the patient has reported increased symptoms when home with her but had done well while at rehabilitation facility. She has also been evaluated by psychiatry in the past and seems to be very concerned about titration of her medications. She also has a known history of reflux disease and irritable bowel syndrome. Current Visit: No Status: Acute Code(s): R10.9 - UNSPECIFIED ABDOMINAL PAIN SNOMED Code(s): 17630157 (2) GERD (gastroesophageal reflux disease) Current Visit: No Status: Acute Code(s): K21.9 - GASTRO-ESOPHAGEAL REFLUX DISEASE WITHOUT ESOPHAGITIS SNOMED Code(s): 059021972 Plan: Supportive care Okay for diet as tolerated Pepcid twice a day Dicyclomine as needed for abdominal pain No plans for endoscopic evaluation at this time the Testing for Clostridium difficile negative, if further loose stool will plan on more stool studies for further evaluation Thank you for allowing us to participate in the care of the patient we will continue to follow
[2019-07-16 10:49] LABS: % Iron Saturation 8.14 (12.00-45.00)
[2019-07-16 11:08] VITALS: BMI 14.2
--- NOTE | 2019-07-16 11:49 | P.PN ---
Subjective Progress Note Date: 07/16/19 This is a 69-year-old female with past medical history of peripheral vascular disease with a aortic aneurysm repair with stent, coronary artery disease with stent placement 2010, right lower extremity DVT, itch or fibrillation, COPD, acid reflux, GI bleed, hypertension, sleep apnea, hepatitis C, hyperlipidemia, hyperthyroid, restless leg syndrome who presented to the emergency room complaining of generalized weakness. She was just admitted on 06/20 for similar complaints and was discharged to [facility] where she was for 2 weeks and was discharged one week ago. Patient comes in with increased weakness and diarrhea and significant weight loss. Patient has pelvic abdominal pain for which multiple computed tomography scan and CT angiogram has been performed with no potential reason to explain for patient's abdominal pain. She was seen by her primary care doctor who prescribed Bentyl to help with her appetite and ordered a CT angiogram of the abdomen and pelvis that was done in April. Abdominal pain- The results of the CT angiogram shows stable thoracic aortic aneurysm, aortoiliac stent graft within the abdomen is patent throughout its course. An attenuated external iliac artery to provide blood flow to the level of the common femoral arteries, extensive ball use emphysmatous change, asymmetric function of the kidneys with atopic right kidney functioning better than the left. Patient had a CT of the abdomen and pelvis without contrast performed 06/18/2019 impression: 1. Air-fluid level within the urinary bladder, correlate for colovesical fistula. Urology ruled out fistula and plan to do cystoscopy as outpatient in [address] from April was reviewed no evidence of mesenteric ischemia noted. Patient was seen by surgery, colonoscopy was reviewed from October no fistula was noted however the scope was incomplete due to incomplete prep. Weight loss - Patient underwent barium swallow which is reported as unremarkable. Patient is able to eat but stayed because of her weakness she is unable to fix her own meals. She did not have any episode of diarrhea while she was at [facility] but when she was discharged she started having the diarrhea episodes again. She states grandson was helping with the meal prep and was getting meals on wheels but was not able to eat anything because of diarrhea. Multiple discussions were made during last hospitalization for PEG tube placement but patient refused to get it. Psychiatry evaluation was negative for anorexia nervosa. Patient has the ability to eat but is currently refusing PEG tube Patient came to the ER as she was getting significantly weak and passed out after having a diarrheal episode this morning and decided to call the ambulance. Evaluation of white as patient had temp of 99.2 pulse 70 blood pressure 166/78 oxygen 100% on 2 L. WBC suggests a leukocyte of 11.1 chloride 114 UN 26 creatinine 1.91 increased from baseline of 1.36 lactic acid was increased to 2.3 glucose is 140. We will start patient on bowel regimen and have gastroenterology consulted for possible PEG tube placement and colonoscopy to evaluate the bowels 07/14: Patient is found sitting up eating a salad for lunch. She denies having any more diarrhea. She did have 2 bowel movements and did not require enema. Reviewed prior records and patient has not had any recent weight loss from previous admission. Consult added for . We are discontinuing aspirin, Mirapex, trospium and decreasing Cymbalta as they may all interfere with abdominal symptoms. Patient has been afebrile, heart rate 61, blood pressure 133/59, pulse ox 90% on room air. Repeat lab work reveals a normal white count of 7.2, hemoglobin 10.8, potassium 3.0 and will be replaced, BUN 15 and creatinine 1.52. 07/15: Patient is found resting in bed. She was able to eat three fourths of her breakfast this morning. Patient is denying constipation at this time. Patient states that her abdominal pain and nausea has returned. Medications were decreased last night. Patient is concerned about the decreased due to her anxiety. Patient has been afebrile. Heart rate 63, pulse ox 96, blood pressure 162/64, respirations 16. WAC 6.6, hemoglobin 10.5, potassium 3.2, creatinine 1.43, BUN 15. C. diff was negative 07/15: Patient was seen by Dr. Pillai with no plan for any endoscopy and follow-up in the office. Patient's abdominal pain and nausea are improved today. She was able to eat breakfast. She walked with physical therapy this morning and did very well with recommendations for home with home care. Patient is agreeable to be discharged home with follow-up as an outpatient. Cymbalta will be discontinued as patient has been started on Remeron. Patient will be discharged home with MiraLAX and calcium carbonate. Patient will be discharged home today in stable condition. Discharge diagnoses: 1. Failure to thrive related todecreased oral intake of solids and chronic abdominal pain. 2. Abdominal pain no mesenteric ischemia was found no fistula 3. Colovesical fistula ruled out by urology. 4. Acute kidney injury on CKD stage III. 5. Leukocytosis likely due to dehydration 6. Dysphagia is ruled out with swallow evaluation 7. lactic acidosis improved with IV fluids 8. Coronary artery disease, PCI with stent in 2010. 9. Peripheral vascular disease, aortic aneurysm repair with stents. 10. Takosubu syndrome in 2016, stable still on medication. 11. Hepatitis C, stable 12. COPD, without exacerbation 13. History of DVT right lower leg. 14. Hypertension. 15. Atrial fibrillation, paroxysmal. 16. GERD. 17. Depression, recurrent. 18. Hypothyroidism. 19. Hyperlipidemia. 20. Restless leg syndrome. 21. Constipation. Discharge plan: Home with [facility] Impression and plan of care have been directed as dictated by the signing physician. Coby Joaquin nurse practitioner acting as scribe for signing physician. Objective - Vital Signs Vital signs: Vital Signs Temp 98.3 F 07/16/19 05:00 Pulse 61 07/16/19 05:00 Resp 20 07/16/19 05:00 BP 179/66 07/16/19 05:00 Pulse Ox 98 07/16/19 05:00 Intake & Output 07/15/19 07/16/19 07/16/19 18:59 06:59 18:59 Intake Total 520 Balance 520 Weight 36.5 kg Intake: Oral 520 Other: Voiding Method Bedpan Bedpan # Voids 3 3 - Exam General appearance: cooperative, cachectic, patient sitting up on the edge of the bed eating lunch and appears to be in no acute distress - EENT Eyes: anicteric sclerae, PERRLA, normal appearance ENT: hearing grossly normal - Neck Neck: no lymphadenopathy, normal ROM, no other, no rigidity, no stridor, no thyromegaly - Respiratory Respiratory: bilateral: CTA, negative: diminished, dullness, rales, rhonchi - Cardiovascular Rhythm: Tachycardic Heart sounds: normal: S1, S2 Abnormal Heart Sounds: no systolic murmur, no diastolic murmur, no rub, no S3 Gallop, no S4 Gallop, no click, no other - Gastrointestinal General gastrointestinal: normal bowel sounds, soft tender in the pelvic region left lower quadrant - Integumentary Integumentary: no rash - Neurologic Neurologic: CNII-XII intact - Musculoskeletal Musculoskeletal: gait normal, strength equal bilaterally - Psychiatric Psychiatric: A&O x's 3, appropriate affect - Labs CBC & Chem 7: 07/15/19 09:19 07/15/19 09:19 Labs: Abnormal Lab Results - Last 24 Hours (Table) 07/15/19 07/15/19 Range/Units 09:19 09:19 RBC 3.43 L (3.80-5.40) m/uL Hgb 10.5 L (11.4-16.0) gm/dL Hct 32.2 L (34.0-46.0) % Potassium 3.2 L (3.5-5.1) mmol/L Chloride 115 H (98-107) mmol/L Creatinine 1.43 H (0.52-1.04) mg/dL Calcium 8.1 L (8.4-10.2) mg/dL Total Protein 5.1 L (6.3-8.2) g/dL Albumin 2.5 L (3.5-5.0) g/dL Assessment and Plan Plan: 1. Failure to thrive related todecreased oral intake of solids and chronic abdominal pain. No finding on testing, swallow evaluation came back negative, long talk with the family especially the daughter in the past was done about the possibility of eating disorders but still insists of having her mom go for PEG tube for artificial feeding but patient refused to go for PEG tube last time. Patient is not a candidate for PEG tube as she is able to eat and swallow without any difficulties and insurance will not cover PEG tube supplies. Consult with GI. 2. Abdominal pain no mesenteric ischemia was found no fistula the finding of suspicious of colitis with no symptoms to support at that this point patient is doing slightly better so far. Patient's symptoms are not consistent with ischemic colitis though patient have significant vascular disease. 3. Colovesical fistula ruled out by urology. Urology plans for outpatient cystoscopy. Radiology and testing had excluded as a possibility. 4. Acute kidney injury on CKD. Continue with hydration, monitor kidney function, limit nephrotoxic medications. 5. Leukocytosis likely due to dehydration continue IV fluids 6. Dysphagia is ruled out with swallow evaluation 7. lactic acidosis improved with IV fluids 8. Coronary artery disease, PCI with stent in 2010. Continue Eliquis, aspirin 9. Peripheral vascular disease, aortic aneurysm repair with stents. Continue Eliquis, 10. Takosubu syndrome in 2016, stable still on medication. 11. Hepatitis C, stable 12. COPD Continue Ventolin, DuoNeb 13. History of DVT right lower leg. 14. Hypertension. Continue Norvasc, Bystolic, 15. Atrial fibrillation. Consult cardiology Continue Eliquis, 16. GERD. Continue Pepcid 20 mg 17. Depression, recurrent. Continue Cymbalta 18. Hypothyroidism. Continue Synthroid 20 mcg by mouth daily 19. Hyperlipidemia. Pravastatin 80 mg by mouth at bedtime 20. Restless leg syndrome. Continue Mirapex 21. Constipation. tap water enema Discharge plan: Home with [facility] in next 24-48 hours. Impression and plan of care have been directed as dictated by the signing physician. Coby Joaquin nurse practitioner acting as scribe for signing physician.
[2019-07-16] MEDS ORDERED: FAMOTIDINE 20 MG TAB PO SCH (21:00)
[2019-07-17] MEDS ORDERED: FAMOTIDINE 20 MG TAB PO SCH (09:00)
--- NOTE | 2019-07-22 16:51 | CDI ---
Documentation Clarification Form Date: 07/22/2019 From: DEDE Dolan; Galilea Dent, Satellite Instruction Facilitator. Phone: If you have any question about this query, please contact Galilea Sherman, Satellite Instruction Facilitator, at [phone] between 8 am and 5 pm. Admit Date:07/13/2019 Patient Name: aNfisa Santiago Visit Number: [id number] Discharge Date:07/16/2019 The Clinical Documentation Specialists (CDS) and [facility] Coding Staff appreciate4 your assistance in clarifying documentation. Please respond to the clarification below the line at the bottom and electronically sign. The CDS/[facility] Coding staff will review the response and follow-up if necessary. Please note: Queries are made a part of the Legal Health Record. If you have any questions, please contact the author of the message via ITS. Dear Dr. Bailey, The patient presented in acute renal failure, along with failure to thrive due to decreased oral intact. She appears thin with cachexia. History/Risk Factors: ALBERT, CKD, PVD, CAD, PTCA, COPD/asthma. Clinical Indicators: Dehydration, weight loss, anorexia, dysphagia, poor dentation. Labs: Albumin 3.3, total protein 5.1 Current BMI: 13.4 Consuming 75% EER Weight Loss: Severe muscle mass wasting and body fat loss. Treatment: Ensure, Glucerna - patient refusing PEG. Dietary Consult: severe protein calorie malnutrition in context of chronic illness. In your professional opinion, can you please clarify if these findings signify one of the following conditions? Mild Protein-Calorie Malnutrition Moderate Protein-Calorie Malnutrition Severe Protein-Calorie Malnutrition Malnutrition, unspecified Malnutrition following GI surgery Other condition, please specify Unable to determine (Last Revision: February 2019) severe protein calorie malnutrition MTDD
--- NOTE | 2019-08-03 15:40 | P.DS ---
Providers Date of admission: 07/13/19 09:28 Expected date of discharge: 07/16/19 Attending physician: Riri Bailey MD Consults: 07/14/19 12:49 Consult Physician Routine Consulting Provider: Ron Dye Consult Reason/Comments: abd pain, diarrhea Do you want consulting provider notified?: Yes Primary care physician: [facility] Course: This is a 69-year-old female with past medical history of peripheral vascular disease with a aortic aneurysm repair with stent, coronary artery disease with stent placement 2010, right lower extremity DVT, itch or fibrillation, COPD, acid reflux, GI bleed, hypertension, sleep apnea, hepatitis C, hyperlipidemia, hyperthyroid, restless leg syndrome who presented to the emergency room complaining of generalized weakness. She was just admitted on 06/20 for similar complaints and was discharged to [facility] where she was for 2 weeks and was discharged one week ago. Patient comes in with increased weakness and diarrhea and significant weight loss. Patient has pelvic abdominal pain for which multiple computed tomography scan and CT angiogram has been performed with no potential reason to explain for patient's abdominal pain. She was seen by her primary care doctor who prescribed Bentyl to help with her appetite and ordered a CT angiogram of the abdomen and pelvis that was done in April. Abdominal pain- The results of the CT angiogram shows stable thoracic aortic aneurysm, aortoiliac stent graft within the abdomen is patent throughout its course. An attenuated external iliac artery to provide blood flow to the level of the common femoral arteries, extensive ball use emphysmatous change, asymmetric function of the kidneys with atopic right kidney functioning better than the left. Patient had a CT of the abdomen and pelvis without contrast performed 06/18/2019 impression: 1. Air-fluid level within the urinary bladder, correlate for colovesical fistula. Urology ruled out fistula and plan to do cystoscopy as outpatient in [address] from April was reviewed no evidence of mesenteric ischemia noted. Patient was seen by surgery, colonoscopy was reviewed from October no fistula was noted however the scope was incomplete due to incomplete prep. Weight loss - Patient underwent barium swallow which is reported as unremarkable. Patient is able to eat but stayed because of her weakness she is unable to fix her own meals. She did not have any episode of diarrhea while she was at [facility] but when she was discharged she started having the diarrhea episodes again. She states grandson was helping with the meal prep and was getting meals on wheels but was not able to eat anything because of diarrhea. Multiple discussions were made during last hospitalization for PEG tube place ment but patient refused to get it. Psychiatry evaluation was negative for anorexia nervosa. Patient has the ability to eat but is currently refusing PEG tube Patient came to the ER as she was getting significantly weak and passed out after having a diarrheal episode this morning and decided to call the ambulance. Evaluation of white as patient had temp of 99.2 pulse 70 blood pressure 166/78 oxygen 100% on 2 L. WBC suggests a leukocyte of 11.1 chloride 114 UN 26 creatinine 1.91 increased from baseline of 1.36 lactic acid was increased to 2.3 glucose is 140. We will start patient on bowel regimen and have gastroenterology consulted for possible PEG tube placement and colonoscopy to evaluate the bowels 07/14: Patient is found sitting up eating a salad for lunch. She denies having any more diarrhea. She did have 2 bowel movements and did not require enema. Reviewed prior records and patient has not had any recent weight loss from previous admission. Consult added for . We are discontinuing aspirin, Mirapex, trospium and decreasing Cymbalta as they may all interfere with abdominal symptoms. Patient has been afebrile, heart rate 61, blood pressure 133/59, pulse ox 90% on room air. Repeat lab work reveals a normal white count of 7.2, hemoglobin 10.8, potassium 3.0 and will be replaced, BUN 15 and creatinine 1.52. 07/15: Patient is found resting in bed. She was able to eat three fourths of her breakfast this morning. Patient is denying constipation at this time. Patient states that her abdominal pain and nausea has returned. Medications were decreased last night. Patient is concerned about the decreased due to her anxiety. Patient has been afebrile. Heart rate 63, pulse ox 96, blood pressure 162/64, respirations 16. WAC 6.6, hemoglobin 10.5, potassium 3.2, creatinine 1.43, BUN 15. C. diff was negative 07/15: Patient was seen by Dr. Pillai with no plan for any endoscopy and follow-up in the office. Patient's abdominal pain and nausea are improved today. She was able to eat breakfast. She walked with physical therapy this morning and did very well with recommendations for home with home care. Patient is agreeable to be discharged home with follow-up as an outpatient. Cymbalta will be discontinued as patient has been started on Remeron. Patient will be discharged home with MiraLAX and calcium carbonate. Patient will be discharged home today in stable condition. Discharge diagnoses: 1. Failure to thrive related to decreased oral intake of solids and chronic abdominal pain. 2. Abdominal pain no mesenteric ischemia was found no fistula 3. Colovesical fistula ruled out by urology. 4. Acute kidney injury on CKD stage III. 5. Leukocytosis likely due to dehydration 6. Dysphagia is ruled out with swallow evaluation 7. lactic acidosis improved with IV fluids 8. Coronary artery disease, PCI with stent in 2010. 9. Peripheral vascular disease, aortic aneurysm repair with stents. 10. Takosubu syndrome in 2016, stable still on medication. 11. Hepatitis C, stable 12. COPD, without exacerbation 13. History of DVT right lower leg. 14. Hypertension. 15. Atrial fibrillation, paroxysmal. 16. GERD. 17. Depression, recurrent. 18. Hypothyroidism. 19. Hyperlipidemia. 20. Restless leg syndrome. 21. Constipation. 22. Severe protein calorie malnutrition. Discharge plan: Home with Located [facility] and plan of care have been directed as dictated by the signing physician. Coby Joaquin nurse practitioner acting as scribe for signing physician. Patient Condition at Discharge: Good Plan - Discharge Summary New Discharge Prescriptions: New Polyethylene Glycol 3350 [Miralax] 17 gm PO Q48H #30 packet Calcium Carbonate [Tums] 500 mg PO TID chew Continue Tiotropium 18 Mcg/Puff [Spiriva] 1 cap INHALATION RT-BID Aspirin 81 mg PO DAILY chew Nitroglycerin Sl Tabs [Nitrostat] 0.4 mg SUBLINGUAL Q5M PRN PRN Reason: Chest Pain Dexlansoprazole [Dexilant] 60 mg PO DAILY Ipratropium-Albuterol Nebulize [Duoneb 0.5 mg-3 mg/3 ml Soln] 3 ml INHALATION RT-QID Albuterol Inhaler [Ventolin Hfa Inhaler] 1 - 2 puff INHALATION RT-Q6H PRN PRN Reason: Shortness Of Breath cycloSPORINE [Restasis] 1 drop BOTH EYES BID Topiramate [Topamax] 50 mg PO BID Levothyroxine Sodium [Synthroid] 25 mcg PO DAILY Multivitamins, Thera [Multivitamin (formulary)] 1 tab PO DAILY Nebivolol [Bystolic] 5 mg PO BID Apixaban [Eliquis] 2.5 mg PO BID #60 tablet amLODIPine [Norvasc] 5 mg PO DAILY #30 tab Mirtazapine [Remeron] 7.5 mg PO HS tab Acetaminophen Tab [Tylenol] 650 mg PO Q6HR PRN tab PRN Reason: Fever and/ or MILD Pain Dicyclomine [Bentyl] 10 mg PO QID PRN #0 tab PRN Reason: Dyspepsia HYDROcodone/APAP 5-325MG [[place] 5-325] 1 tab PO Q6HR PRN #12 tab PRN Reason: Pain ALPRAZolam [Xanax] 0.25 mg PO TID PRN #9 tab PRN Reason: Anxiety Changed Butalb/APAP/Caff 50-325-40Mg [Fioricet 50-325-40] 1 tab PO Q8H PRN #9 tab PRN Reason: Migraine Headache Discontinued Pramipexole [Mirapex] 0.125 mg PO HS DULoxetine HCL [Cymbalta] 60 mg PO BID Fesoterodine Fumarate [Toviaz] 8 mg PO DAILY Discharge Medication List Tiotropium 18 Mcg/Puff [Spiriva] 1 cap INHALATION RT-BID 09/12/14 [History] Aspirin 81 mg PO DAILY chew 09/02/17 [Rx] Dexlansoprazole [Dexilant] 60 mg PO DAILY 12/12/17 [History] Nitroglycerin Sl Tabs [Nitrostat] 0.4 mg SUBLINGUAL Q5M PRN 12/12/17 [History] Albuterol Inhaler [Ventolin Hfa Inhaler] 1 - 2 puff INHALATION RT-Q6H PRN 10/08/18 [History] Ipratropium-Albuterol Nebulize [Duoneb 0.5 mg-3 mg/3 ml Soln] 3 ml INHALATION RT-QID 10/08/18 [History] Topiramate [Topamax] 50 mg PO BID 10/08/18 [History] cycloSPORINE [Restasis] 1 drop BOTH EYES BID 10/08/18 [History] Levothyroxine Sodium [Synthroid] 25 mcg PO DAILY 02/28/19 [History] Multivitamins, Thera [Multivitamin (formulary)] 1 tab PO DAILY 02/28/19 [History] Nebivolol [Bystolic] 5 mg PO BID 02/28/19 [History] Apixaban [Eliquis] 2.5 mg PO BID #60 tablet 03/02/19 [Rx] amLODIPine [Norvasc] 5 mg PO DAILY #30 tab 03/03/19 [Rx] Acetaminophen Tab [Tylenol] 650 mg PO Q6HR PRN tab 06/24/19 [Rx] Dicyclomine [Bentyl] 10 mg PO QID PRN #0 tab 06/24/19 [Rx] Mirtazapine [Remeron] 7.5 mg PO HS tab 06/24/19 [Rx] ALPRAZolam [Xanax] 0.25 mg PO TID PRN #9 tab 07/16/19 [Rx] Butalb/APAP/Caff 50-325-40Mg [Fioricet 50-325-40] 1 tab PO Q8H PRN #9 tab 07/16/19 [Rx] Calcium Carbonate [Tums] 500 mg PO TID chew 07/16/19 [Rx] HYDROcodone/APAP 5-325MG [[place] 5-325] 1 tab PO Q6HR PRN #12 tab 07/16/19 [Rx] Polyethylene Glycol 3350 [Miralax] 17 gm PO Q48H #30 packet 07/16/19 [Rx] Follow up Appointment(s)/Referral(s): Jenaro Colbert DO [Primary Care Provider] - 1 Week (after dc from ECF) Ron Dye MD [STAFF PHYSICIAN] - 3 Weeks Patient Instructions/Handouts: Dehydration (DC) Activity/Diet/Wound Care/Special Instructions: [facility] [phone] Discharge Disposition: HOME WITH HOME HEALTH SERVICES
== END 2019-07-16 14:37 | disposition home health service (06) | DRG 682 ==
LOC: EC 06:14 → 4MS4W 09:28
PROVIDERS: ADMIT Internal Medicine; ATTEND Internal Medicine
DX: N17.9 Acute kidney failure, unspecified (principal); E43 Unspecified severe protein-calorie malnutrition; E87.2 Acidosis; R64 Cachexia; Z68.1 Body mass index [BMI] 19.9 or less, adult; B19.20 Unspecified viral hepatitis C without hepatic coma; D72.829 Elevated white blood cell count, unspecified; E03.9 Hypothyroidism, unspecified; E78.5 Hyperlipidemia, unspecified; E86.0 Dehydration; F17.200 Nicotine dependence, unspecified, uncomplicated; F32.9 Major depressive disorder, single episode, unspecified; F41.0 Panic disorder [episodic paroxysmal anxiety]; G25.81 Restless legs syndrome; G89.29 Other chronic pain; I12.9 Hypertensive chronic kidney disease with stage 1 through stage 4 chronic kidney disease, or unspecified chronic kidney disease; I25.10 Atherosclerotic heart disease of native coronary artery without angina pectoris; I25.2 Old myocardial infarction; I48.0 Paroxysmal atrial fibrillation; I73.9 Peripheral vascular disease, unspecified; J44.9 Chronic obstructive pulmonary disease, unspecified; K21.9 Gastro-esophageal reflux disease without esophagitis; K58.0 Irritable bowel syndrome with diarrhea; N18.3 Chronic kidney disease, stage 3 (moderate); R62.7 Adult failure to thrive; Z79.01 Long term (current) use of anticoagulants; Z79.82 Long term (current) use of aspirin; Z79.890 Hormone replacement therapy; Z79.899 Other long term (current) drug therapy; Z82.49 Family history of ischemic heart disease and other diseases of the circulatory system; Z82.5 Family history of asthma and other chronic lower respiratory diseases; Z86.718 Personal history of other venous thrombosis and embolism; Z90.710 Acquired absence of both cervix and uterus; Z95.5 Presence of coronary angioplasty implant and graft
CPT/HCPCS: 36415; 74018; 80053; 81001; 82150; 83540; 83550; 83605; 83690; 83735; 84484; 85025; 85027; 87324; 93005; 94640; 96361; 96374; 96375; 99285

== ENCOUNTER → 2019-08-02 | Outpatient (CLI) | payer MEDICARE ==
--- NOTE | 2019-08-02 14:33 | CT ---
EXAMINATION TYPE: CT abdomen wo con DATE OF EXAM: 08/02/2019 COMPARISON: 06/20/2019 HISTORY: abdominal pain CT DLP: 137.2 mGycm Examination of the solid and hollow viscera is limited given the lack of contrast. Limited unenhanced CT of the abdomen was performed. Lack of GI contrast and intravenous contrast limits evaluation of t he solid and hollow abdominal viscera. FINDINGS: LUNG BASES: No evidence for nodule. No evidence for infiltrate. LIVER/GB: The gallbladder is unremarkable. No space-occupying hepatic lesion. PANCREAS: No pancreatic mass identified. No inflammatory process seen. SPLEEN: No evidence for splenomegaly. No intrasplenic lesions seen. ADRENALS: No adrenal nodules identified. No evidence for thickening. KIDNEYS: No evidence for renal mass. No nephrolithiasis. No hydronephrosis. BOWEL: Appendix has a normal appearance. No evidence of bowel obstruction. No inflammatory process. Lymph nodes: No evidence for adenopathy greater than 1 cm. Abdominal aorta: Aortobiiliac stent graft noted to be in place. Iliac artery aneurysms noted as well. Genital organs: No significant abnormality. Other: No significant abnormality. IMPRESSION: 1. No acute process identified to account for the patient's symptoms.
== END | disposition home or self-care (01) ==
LOC: RADCTMAIN 14:01
PROVIDERS: ATTEND Family Medicine
DX: R10.84 Generalized abdominal pain (principal)
CPT/HCPCS: 74150

== ENCOUNTER 2020-01-05 10:44 | Inpatient (IN) | payer MEDICARE ==
[2020-01-05] MEDS ORDERED: MORPHINE SULFATE 4 MG/ML SYRINGE IVP PRN (11:13)
[2020-01-05] MEDS ORDERED: METOCLOPRAMIDE 5 MG/ML 2 ML VIAL IVP STA (11:13)
--- NOTE | 2020-01-05 11:16 | ED ---
General Adult HPI - General Chief complaint: Weakness Stated complaint: Weakness,Nausea Time Seen by Provider: 01/05/20 10:59 Source: EMS Mode of arrival: EMS Limitations: no limitations - History of Present Illness Initial comments: Dictation was produced using [employer] dictation software. please excuse any grammatical, word or spelling errors. This patient was cared for during a federal and state declared state of emergency secondary to Covid 19 Chief Complaint: 69-year-old female with multiple comorbidities presents with weakness 10 days History of Present Illness: And 1-year-old female she presents today with weakness 10 days. She states that her symptoms began approximately week and a half ago. She states that her symptoms have been getting worse. Today she felt so weak that she had difficulty getting out of bed and ambulating with a walker. She lives at home with her . Patient has history of H or fibrillation, coronary artery disease. She does take apixaban. She has history of abdominal aortic aneurysm treated with stent. She denies any focal neurologic deficits. She does claim nausea. No vomiting. She does have left lower quadrant pain. No diarrhea. The ROS documented in this emergency department record has been reviewed and confirmed by me. Those systems with pertinent positive or negative responses have been documented in the HPI. All other systems are other negative and/or noncontributory. PHYSICAL EXAM: General Impression: Alert and oriented x3, lethargic HEENT: Normocephalic atraumatic, extra-ocular movements intact, pupils equal and reactive to light bilaterally, mucous membranes moist. Cardiovascular: Heart regular rate and rhythm Chest: Able to complete full sentences, no retractions, no tachypnea Abdomen: abdomen soft, tenderness to the left lower quadrant, no rebound tenderness Musculoskeletal: Pulses present and equal in all extremities, no peripheral edema Motor: no focal deficits noted Neurological: CN II-XII grossly intact, no focal motor or sensory deficits noted Skin: Intact with no visualized rashes Psych: Normal affect and mood ED course: 69-year-old female presents with generalized weakness and abdominal pain. Vital signs upon arrival are within acceptable limits. Laboratory evaluation obtained. CBC unremarkable. No leukocytosis. Coag panel unremarkable. Metabolic panel shows potassium of 2.9. There is findings to suggest acute kidney injury. Creatinine of 2.859 BUN of 35. Rest of labs are within acceptable limits. CT of the abdomen and pelvis was obtained suggesting a limited study there is no findings to suggest acute diverticulitis. There is however fecal stasis concerning for ileus. Patient given intravenous fluids. She is given parenteral electrolyte replacement. Discussed patient case with Dr. Weiss who requests that patient be start antibiotics to treat for diverticulitis given her clinical presentation displaced radiographic evidence. Patient treated with ceftriaxone and Flagyl. Patient reevaluated at bedside in stable medical condition. Patient will be admitted. She is agreeable. EKG interpretation: Ventricular rate normal sinus rhythm, ventricular rate 70, OH interval 150, QRS 90, QTc 503. No OH prolongation, no ST or T-wave changes noted. EKG compared to laboratory 01/25/2019 showing no changes. Overall, this EKG is unremarkable - Related Data Home Medications Medication Instructions Recorded Confirmed Topiramate [Topamax] 50 mg PO BID 10/08/18 09/28/19 Levothyroxine Sodium [Synthroid] 25 mcg PO DAILY 02/28/19 09/28/19 DULoxetine HCL [Cymbalta] 60 mg PO BID 09/28/19 09/28/19 Fesoterodine Fumarate [Toviaz] 8 mg PO DAILY 09/28/19 09/28/19 Pramipexole [Mirapex] 0.125 mg PO HS 09/28/19 09/28/19 Previous Rx's Medication Instructions Recorded Apixaban [Eliquis] 2.5 mg PO BID #60 tablet 03/02/19 Dicyclomine [Bentyl] 10 mg PO QID PRN #0 tab 06/24/19 Aspirin 325 mg PO DAILY tab 09/30/19 Atorvastatin [Lipitor] 40 mg PO HS tab 09/30/19 Lisinopril [Zestril] 10 mg PO BID tab 09/30/19 Nebivolol [Bystolic] 5 mg PO BID tab 09/30/19 Nicotine 7Mg/24Hr Patch [Habitrol] 1 patch TRANSDERM DAILY patch 09/30/19 hydrOXYzine HCL [Atarax] 10 mg PO TID PRN #0 09/30/19 traMADol HCl [Ultram] 50 mg PO Q6H PRN #16 tab 09/30/19 Allergies Allergy/AdvReac Type Severity Reaction Status Date / Time naproxen sodium [From Aleve] Allergy Severe Anaphylaxis Verified 09/28/19 13:55 adhesive Allergy Rash/Hives Verified 09/28/19 13:55 clindamycin Allergy Anaphylaxis Verified 09/28/19 13:55 gentamicin [Gentamicin] Allergy SWELLING Verified 09/28/19 13:55 OF FACE W/ EYE DROPS latex Allergy Rash/Hives Verified 09/28/19 13:55 levothyroxine sodium Allergy Unknown Verified 09/28/19 13:55 [From Synthroid] losartan Allergy Unknown Verified 09/28/19 13:55 Penicillins Allergy Rash/Hives Verified 09/28/19 13:55 Sulfa (Sulfonamide Allergy Swelling Verified 09/28/19 13:55 Antibiotics) IN MOUTH sulfamethoxazole Allergy swelling Verified 09/28/19 13:55 [From Bactrim] tongue sulfanilamide Allergy Unknown Verified 09/28/19 13:55 trimethoprim [From Bactrim] Allergy Swelling Verified 09/28/19 13:55 venom-honey bee Allergy Dyspnea Verified 09/28/19 13:55 [bee venom (honey bee)] cinnamon [Cinnamon] AdvReac Dyspnea Verified 09/28/19 13:55 codeine AdvReac Nausea & Verified 09/28/19 13:55 Vomiting paola AdvReac Dyspnea Verified 09/28/19 13:55 Iodinated Contrast Media AdvReac Dyspnea Verified 09/28/19 13:55 [Iodinated Contrast- Oral and IV Dye] montelukast sodium AdvReac Wheezing Verified 09/28/19 13:55 [From Singulair] pantoprazole sodium AdvReac Abdominal Verified 09/28/19 13:55 [From Protonix] Pain red dye AdvReac Abdominal Verified 09/28/19 13:55 Pain BANDAIDS Allergy Rash/Hives Uncoded 09/28/19 13:55 Dye for gallbladder scan. Allergy Anaphylaxis Uncoded 09/28/19 13:55 tomatoes AdvReac Abdominal Uncoded 09/28/19 13:55 Pain Review of Systems ROS Statement: Those systems with pertinent positive or pertinent negative responses have been documented in the HPI. ROS Other: All systems not noted in ROS Statement are negative. Past Medical History Past Medical History: Atrial Fibrillation, Asthma, Coronary Artery Disease (CAD), Chest Pain / Angina, COPD, Deep Vein Thrombosis (DVT), GERD/Reflux, GI Bleed, Hypertension, Liver Disease, Memory Impairment, Myocardial Infarction (MA), Pneumonia, Respiratory Disorder, Sleep Apnea/CPAP/BIPAP, Vascular Disorder Additional Past Medical History / Comment(s): on 10/25/18 pt states was having pizza with family and food got stuck, pt had small amount of emesis. She went to bed and woke up to discover that she was incontinent of stool while she slept. Pt states that this has never happened.Patient continues to have difficulty swallowing like before. HEP C. Aortic aneurysm with stent-being monitored, Takosubu syndrome in 2016, R groin dissection/cardiac cath, recent bacteremia- blood cultures positive for veridans strep-completed antibiotics, bronchitis, home O2 at 3L/NC most of the time, LG without device-stable, DVT R leg, lower GI bleed, hepatitis C with Harvoni treatment, anemia with iron infusions x2, bilateral femoral head avascular necrosis, RLS, migraines, insomnia, constipation, overactive bladder, post menopausal bleed. Last Myocardial Infarction Date:: 07/2017 History of Any Multi-Drug Resistant Organisms: None Reported Past Surgical History: Bladder Surgery, Cholecystectomy, Heart Catheterization With Stent, Hysterectomy, Orthopedic Surgery Additional Past Surgical History / Comment(s): Gallbladder removed (2018) AAA 2006 (stent) Past Anesthesia/Blood Transfusion Reactions: No Reported Reaction Date of Last Stent Placement:: 2010 Past Psychological History: Anxiety, Depression, Panic Disorder Smoking Status: Current every day smoker Past Alcohol Use History: None Reported Past Drug Use History: None Reported - Past Family History Brother(s) Family Medical History: Coronary Artery Disease (CAD), Myocardial Infarction (MA) Father Additional Family Medical History / Comment(s): FROM CIRRHOSIS OF THE LIVER Mother Family Medical History: COPD Additional Family Medical History / Comment(s): FROM AAA, HAD HX of TB. General Exam Limitations: no limitations Course Vital Signs 01/05/20 01/05/20 10:50 13:02 Temperature 97.6 F Pulse Rate 75 64 Respiratory 18 20 Rate Blood Pressure 140/82 175/77 O2 Sat by Pulse 98 98 Oximetry Medical Decision Making - Lab Data Result diagrams: 01/05/20 11:05 01/05/20 11:05 Lab Results 01/05/20 01/05/20 01/05/20 Range/Units 11:05 11:05 11:05 WBC 7.9 (3.8-10.6) k/uL RBC 3.91 (3.80-5.40) m/uL Hgb 10.9 L (11.4-16.0) gm/dL Hct 33.8 L (34.0-46.0) % MCV 86.3 (80.0-100.0) fL MCH 27.9 (25.0-35.0) pg MCHC 32.4 (31.0-37.0) g/dL RDW 16.2 H (11.5-15.5) % Plt Count 261 (150-450) k/uL Neutrophils % 75 % Lymphocytes % 14 % Monocytes % 5 % Eosinophils % 5 % Basophils % 0 % Neutrophils # 5.9 (1.3-7.7) k/uL Lymphocytes # 1.1 (1.0-4.8) k/uL Monocytes # 0.4 (0-1.0) k/uL Eosinophils # 0.4 (0-0.7) k/uL Basophils # 0.0 (0-0.2) k/uL Hypochromasia Slight Anisocytosis Slight PT 10.1 (9.0-12.0) sec INR 1.0 (<1.2) APTT 24.7 (22.0-30.0) sec Sodium 133 L (137-145) mmol/L Potassium 2.9 L (3.5-5.1) mmol/L Chloride 101 (98-107) mmol/L Carbon Dioxide 24 (22-30) mmol/L Anion Gap 8 mmol/L BUN 35 H (7-17) mg/dL Creatinine 2.85 H (0.52-1.04) mg/dL Est GFR (CKD-EPI)AfAm 18 (>60 ml/min/1.73 sqM) Est GFR (CKD-EPI)NonAf 16 (>60 ml/min/1.73 sqM) Glucose 131 H (74-99) mg/dL Plasma Lactic Acid Aquilino (0.7-2.0) mmol/L Calcium 8.5 (8.4-10.2) mg/dL Ionized Calcium Ethel 4.7 (4.5-5.3) mg/dL Magnesium 1.9 (1.6-2.3) mg/dL Total Bilirubin 0.4 (0.2-1.3) mg/dL AST 29 (14-36) U/L ALT 10 (4-34) U/L Alkaline Phosphatase 106 (38-126) U/L Total Protein 6.0 L (6.3-8.2) g/dL Albumin 3.0 L (3.5-5.0) g/dL 05/20/20 Range/Units 11:05 WBC (3.8-10.6) k/uL RBC (3.80-5.40) m/uL Hgb (11.4-16.0) gm/dL Hct (34.0-46.0) % MCV (80.0-100.0) fL MCH (25.0-35.0) pg MCHC (31.0-37.0) g/dL RDW (11.5-15.5) % Plt Count (150-450) k/uL Neutrophils % % Lymphocytes % % Monocytes % % Eosinophils % % Basophils % % Neutrophils # (1.3-7.7) k/uL Lymphocytes # (1.0-4.8) k/uL Monocytes # (0-1.0) k/uL Eosinophils # (0-0.7) k/uL Basophils # (0-0.2) k/uL Hypochromasia Anisocytosis PT (9.0-12.0) sec INR (<1.2) APTT (22.0-30.0) sec Sodium (137-145) mmol/L Potassium (3.5-5.1) mmol/L Chloride (98-107) mmol/L Carbon Dioxide (22-30) mmol/L Anion Gap mmol/L BUN (7-17) mg/dL Creatinine (0.52-1.04) mg/dL Est GFR (CKD-EPI)AfAm (>60 ml/min/1.73 sqM) Est GFR (CKD-EPI)NonAf (>60 ml/min/1.73 sqM) Glucose (74-99) mg/dL Plasma Lactic Acid Aquilino 1.7 (0.7-2.0) mmol/L Calcium (8.4-10.2) mg/dL Ionized Calcium Ethel (4.5-5.3) mg/dL Magnesium (1.6-2.3) mg/dL Total Bilirubin (0.2-1.3) mg/dL AST (14-36) U/L ALT (4-34) U/L Alkaline Phosphatase (38-126) U/L Total Protein (6.3-8.2) g/dL Albumin (3.5-5.0) g/dL Disposition Clinical Impression: ALBERT (acute kidney injury) Disposition: ADMITTED IP TO THIS HOSP Condition: Fair Referrals: Jenaro Colbetr DO [Primary Care Provider] - 1-2 days Decision Time: 13:17
[2020-01-05] MEDS ORDERED: diphenhydrAMINE 50 MG/ML 1 ML VIAL IVP STA (11:19)
[2020-01-05] MEDS ORDERED: methylPREDNISolone SOD SUCCI 125 MG/2 ML VIAL IV STA (11:19)
[2020-01-05] MEDS ORDERED: FAMOTIDINE 20 MG/2 ML VIAL IV STA (11:19)
[2020-01-05 11:28] LABS: Anisocytosis Slight; Basophils % (A) 0 %; Eosinophils # (A) 0.4 k/uL (0-0.7); Eosinophils % (A) 5 %; HCT 33.8 % (34.0-46.0); HGB 10.9 gm/dL (11.4-16.0); Hypochromasia Slight; Lymphocytes # (A) 1.1 k/uL (1.0-4.8); Lymphocytes % (A) 14 %; MCH 27.9 pg (25.0-35.0); MCHC 32.4 g/dL (31.0-37.0); MCV 86.3 fL (80.0-100.0); Mean Platelet Volume 7.9; Monocytes # (A) 0.4 k/uL (0-1.0); Monocytes % (A) 5 %; Neutrophils # (A) 5.9 k/uL (1.3-7.7); Neutrophils % (A) 75 %; Platelet Count 261 k/uL (150-450); RBC 3.91 m/uL (3.80-5.40); RDW 16.2 % (11.5-15.5); WBC 7.9 k/uL (3.8-10.6)
[2020-01-05 11:40] LABS: Ionized Calcium 4.7 mg/dL (4.5-5.3)
[2020-01-05 11:50] LABS: Calcium 8.5 mg/dL (8.4-10.2); Magnesium 1.9 mg/dL (1.6-2.3); Potassium 2.9 mmol/L (3.5-5.1); Total Bilirubin 0.4 mg/dL (0.2-1.3)
[2020-01-05] MEDS ORDERED: SODIUM CHLORIDE 0.9% 1,000 ML IV STA (11:57)
[2020-01-05 12:29] LABS: Partial Thromboplastin Time 24.7 sec (22.0-30.0); Prothrombin Time 10.1 sec (9.0-12.0)
--- NOTE | 2020-01-05 12:39 | CT ---
EXAMINATION TYPE: CT abdomen pelvis wo con DATE OF EXAM: 01/05/2020 COMPARISON: 08/02/2019 HISTORY: LLQ pain CT DLP: 232.3 mGycm Automated exposure control for dose reduction was used. TECHNIQUE: Helical acquisition of images was performed from the lung bases through the pelvis. FINDINGS: Lack of intravenous and oral contrast limit evaluation of both the hollow and solid viscera . LUNG BASES: Moderate emphysematous changes of the lung bases. Pleural parenchymal scarring in the travis gula. Descending thoracic aortic aneurysm measuring 3.8 cm. LIVER/GB: Unremarkable unenhanced morphology of the liver.The gallbladder is difficult to separate fr om the adjacent bowel. Common bile duct dilation is seen measuring 1.4 cm. PANCREAS: Poorly from other abdominal structures without contrast and given the paucity of intra-abdominal fat SPLEEN: Nonenlarged containing a benign granuloma. ADRENALS: Grossly unremarkable KIDNEYS: Left renal atrophy is seen with renal arterial calcifications. No gross hydronephrosis of ei ther kidney. No calculi in the urinary bladder. FREE AIR: No free air is visualized ADENOPATHY: Nondiagnostic given lack of intra-abdominal fat and lack of contrast OSSEOUS STRUCTURES: Moderate degenerative change of the spine. Diffuse osseous demineralization. Fin dings suggesting avascular necrosis of the hips. BOWEL: Bowel wall thickening is seen of portions of what appear to be the redundant transverse colon on axial image 45 in the right lower quadrant. Loops of dilated small bowel in the right abdomen triston sure up to 3.2 cm, mildly dilated. Moderate degree colonic fecal stasis. OTHER: Severe atherosclerosis of the abdominal aorta and its branches. Abdominal aortic stent graft b egins just below the renal arteries within the aneurysmal upper abdominal aorta. Upper abdominal aort a measures a partially 3.5 cm. Mid abdominal aorta measures 3.3 cm and distal abdominal aorta measure s 3.8 x 4.5 cm. Left common iliac artery is aneurysmal measuring 3.3 cm as is the right common iliac artery measuring 2.4 cm. Surgical clips are seen along the femoral regions bilaterally. Lack of intra venous contrast renders the examination nondiagnostic for endoleak. The exam is also limited for aort ic rupture. No gross increase in size and caliber of the abdominal aorta in comparison to the prior. IMPRESSION: Markedly limited exam given cachexia, possibility of intra-abdominal fat, patient positio rachelle and lack of contrast. 1. Dilated common bile duct. Correlate with serum laboratory values and HIDA scan if there is further clinical concern for acute cholecystitis. Ultrasound is unlikely be as beneficial as HIDA scan as th ere are numerous loops of adjacent bowel in the right upper quadrant. 2. Moderate degree colonic fecal stasis and few loops of dilated fluid-filled small bowel in the righ t abdomen. Findings favor ileus, correlate with most recent bowel movement. 3. Limited exam of the abdominal aortic aneurysm with vascular stent graft. No gross enlargement from the prior of 08/02/2019 4. Findings suggesting avascular necrosis of the hips.
[2020-01-05] MEDS: POTASSIUM CHLORIDE 10 MEQ in WATER FOR INJECTION 1 100ML.BAG IVPB SCH ×4 (13:01→21:33)
[2020-01-05] MEDS ORDERED: cefTRIAXone IN SWFI 1,000 MG/10 ML SYRINGE IVP STA (13:12)
[2020-01-05] MEDS ORDERED: metroNIDAZOLE-NS PMX 500 MG in SALINE 1 100ML.BAG IVPB STA (13:12)
[2020-01-05] MEDS ORDERED: ACETAMINOPHEN TAB 325 MG TAB PO PRN (13:18)
[2020-01-05] MEDS ORDERED: NALOXONE 0.4 MG/ML 1 ML VIAL IV PRN (13:18)
[2020-01-05] MEDS ORDERED: DICYCLOMINE 20 MG TAB PO PRN (15:05)
--- NOTE | 2020-01-05 15:16 | P.HPIM ---
History of Present Illness H&P Date: 01/05/20 This is a 68-year-old female one of Dr. Colbert patient with past medical history of hepatitis C post the Harvoni therapy, history of CAD with non-ST elevated myocardial infarction in April 2017 status post heart catheterization and stenting of the RCA with heavily calcified right and left coronary systems and recommendations to maximize medical treatment, COPD, asthma, chronic hypoxic respiratory failure on home O2 at 3 L nasal cannula, previous history of DVT along with Takosubu syndrome, GI bleed (April 2016), chronic kidney disease III, multiple admissions for failure to thrive and chronic abdominal pain. 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 Islas at that time. History of carotid stenosis and aortic aneurysm followed by Dr. Costa. Patient complains of weakness for 10 days and gradually worsening. Weakness is continued to worsen she is unable to get out of bed or ambulate with a walker. Patient complains of nausea. She complains of pain in her abdomen and her lower back area. No diarrhea. Abdominal pain is in the left lower quadrant. Patient was afebrile, heart rate 75, blood pressure 140/82, pulse ox 90% on room air. Hemoglobin 10.9, WBC 7.9, platelet count 261. Sodium 133, potassium 2.9, chloride 101, CO2 24, BUN 35 and creatinine 2.85, blood sugar 131. Liver function tests within normal limits. Lactic acid 1.7. CAT scan of the abdomen and pelvis without contrast revealed dilated common bile duct. Correlate with lab values and HIDA scan if concern for acute cholecystitis. Ultrasound is unlikely to be beneficial due to adjacent bowel loops. Moderate degree of colonic fecal stasis and feelings dilated fluid-filled small bowel in the right abdomen. Findings favor ileus. Avascular necrosis of the hips. Patient received a dose of ceftriaxone and Flagyl, 1 L of IV fluids. Patient admitted to the [facility] floor and consult requested with cardiology for prolonged QT. Coronavirus testing in process. Review of Systems Constitutional: Reports anorexia, Reports fatigue, Reports lethargy, Reports malaise, Reports poor appetite, Reports weakness, Reports weight loss, Denies chills, Denies fever Eyes: denies blurred vision, denies pain Ears, nose, mouth and throat: Denies dysphagia, Denies headache, Denies nasal congestion, Denies nasal discharge, Denies sore throat, Denies vertigo Cardiovascular: Denies chest pain, Denies decreased exercise tolerance, Denies dyspnea on exertion, Denies edema, Denies leg edema, Denies lightheadedness, Denies shortness of breath, Denies syncope Respiratory: Denies cough, Denies cough with sputum, Denies dyspnea, Denies excessive sputum, Denies hemoptysis, Denies home oxygen, Denies respiratory infections, Denies wheezing Gastrointestinal: Reports abdominal pain, Reports nausea, Denies constipation, Denies diarrhea, Denies loss of appetite, Denies vomiting Genitourinary: Denies dysuria, Denies hematuria, Denies urgency, Denies urinary frequency Menstruation: Reports postmenopausal Musculoskeletal: Reports gait dysfunction, Reports muscle weakness, Denies frequent falls, Denies myalgias Integumentary: Denies pruritus, Denies rash, Denies wounds Neurological: Denies change in mentation, Denies change in speech, Denies numbness, Denies seizures, Denies weakness Psychiatric: Denies anxiety, Denies depression Endocrine: Denies fatigue, Denies weight change Past Medical History Past Medical History: Atrial Fibrillation, Asthma, Coronary Artery Disease (CAD), Chest Pain / Angina, COPD, Deep Vein Thrombosis (DVT), GERD/Reflux, GI Bleed, Hypertension, Liver Disease, Memory Impairment, Myocardial Infarction (PR), Pneumonia, Respiratory Disorder, Sleep Apnea/CPAP/BIPAP, Vascular Disorder Additional Past Medical History / Comment(s): on 10/25/18 pt states was having pizza with family and food got stuck, pt had small amount of emesis. She went to bed and woke up to discover that she was incontinent of stool while she slept. Pt states that this has never happened.Patient continues to have difficulty swallowing like before. HEP C. Aortic aneurysm with stent-being monitored, Takosubu syndrome in 2016, R groin dissection/cardiac cath, recent bacteremia- blood cultures positive for veridans strep-completed antibiotics, bronchitis, home O2 at 3L/NC most of the time, LG without device-stable, DVT R leg, lower GI bleed, hepatitis C with Harvoni treatment, anemia with iron infusions x2, bilateral femoral head avascular necrosis, RLS, migraines, insomnia, constipation, overactive bladder, post menopausal bleed. Last Myocardial Infarction Date:: 07/2017 History of Any Multi-Drug Resistant Organisms: None Reported Past Surgical History: Bladder Surgery, Cholecystectomy, Heart Catheterization With Stent, Hysterectomy, Orthopedic Surgery Additional Past Surgical History / Comment(s): Gallbladder removed (2018) AAA 2006 (stent) Past Anesthesia/Blood Transfusion Reactions: No Reported Reaction Date of Last Stent Placement:: 2010 Past Psychological History: Anxiety, Depression, Panic Disorder Smoking Status: Current every day smoker Past Alcohol Use History: None Reported Additional Past Alcohol Use History / Comment(s): She was a smoker starting in 1956. Smokes approx 5-8 cig.'s per day. Quit last Jun. but started again. Past Drug Use History: None Reported - Past Family History Brother(s) Family Medical History: Coronary Artery Disease (CAD), Myocardial Infarction (PR) Father Additional Family Medical History / Comment(s): FROM CIRRHOSIS OF THE LIVER Mother Family Medical History: COPD Additional Family Medical History / Comment(s): FROM AAA, HAD HX of TB. Medications and Allergies Home Medications Medication Instructions Recorded Confirmed Type Apixaban [Eliquis] 2.5 mg PO BID #60 tablet 03/02/19 01/05/20 Rx DULoxetine HCL [Cymbalta] 60 mg PO BID 09/28/19 01/05/20 History Fesoterodine Fumarate [Toviaz] 8 mg PO DAILY 09/28/19 01/05/20 History Pramipexole [Mirapex] 0.125 mg PO HS 09/28/19 01/05/20 History Nebivolol [Bystolic] 5 mg PO BID tab 09/30/19 01/05/20 Rx ALPRAZolam [Xanax] 1 mg PO BID PRN 01/05/20 01/05/20 History Aspirin 81 mg PO DAILY 01/05/20 01/05/20 History Dexlansoprazole [Dexilant] 60 mg PO DAILY 01/05/20 01/05/20 History Dicyclomine [Bentyl] 20 mg PO TID PRN 01/05/20 01/05/20 History Levothyroxine Sodium [Synthroid] 50 mcg PO DAILY 01/05/20 01/05/20 History Tiotropium Lillian [Spiriva 8 gm INHALATION RT-BID 01/05/20 01/05/20 History Respimat] amLODIPine [Norvasc] 5 mg PO DAILY 01/05/20 01/05/20 History Allergies Allergy/AdvReac Type Severity Reaction Status Date / Time naproxen sodium [From Aleve] Allergy Severe Anaphylaxis Verified 01/05/20 13:35 adhesive Allergy Rash/Hives Verified 01/05/20 13:35 clindamycin Allergy Anaphylaxis Verified 01/05/20 13:35 gentamicin [Gentamicin] Allergy SWELLING Verified 01/05/20 13:35 OF FACE W/ EYE DROPS latex Allergy Rash/Hives Verified 01/05/20 13:35 levothyroxine sodium Allergy Unknown Verified 01/05/20 13:35 [From Synthroid] losartan Allergy Unknown Verified 01/05/20 13:35 Penicillins Allergy Rash/Hives Verified 01/05/20 13:35 Sulfa (Sulfonamide Allergy Swelling Verified 01/05/20 13:35 Antibiotics) IN MOUTH sulfamethoxazole Allergy swelling Verified 01/05/20 13:35 [From Bactrim] tongue sulfanilamide Allergy Unknown Verified 01/05/20 13:35 trimethoprim [From Bactrim] Allergy Swelling Verified 01/05/20 13:35 venom-honey bee Allergy Dyspnea Verified 01/05/20 13:35 [bee venom (honey bee)] cinnamon [Cinnamon] AdvReac Dyspnea Verified 01/05/20 13:35 codeine AdvReac Nausea & Verified 01/05/20 13:35 Vomiting paola AdvReac Dyspnea Verified 01/05/20 13:35 Iodinated Contrast Media AdvReac Dyspnea Verified 01/05/20 13:35 [Iodinated Contrast- Oral and IV Dye] montelukast sodium AdvReac Wheezing Verified 01/05/20 13:35 [From Singulair] pantoprazole sodium AdvReac Abdominal Verified 01/05/20 13:35 [From Protonix] Pain red dye AdvReac Abdominal Verified 01/05/20 13:35 Pain BANDAIDS Allergy Rash/Hives Uncoded 01/05/20 13:36 Dye for gallbladder scan. Allergy Anaphylaxis Uncoded 01/05/20 13:36 tomatoes Allergy Abdominal Uncoded 01/05/20 13:36 Pain Physical Exam Vitals: Vital Signs Temp Pulse Resp BP Pulse Ox 01/05/20 10:50 97.6 F 75 18 140/82 98 Intake and Output 01/04/20 01/05/2020 22:59 06:59 14:59 Other: Weight 33.566 kg - Constitutional General appearance: cooperative, in acute distress, frail appearing - EENT Eyes: anicteric sclerae, PERRLA, normal appearance ENT: hearing grossly normal NG tube with bile-colored return. - Neck Neck: no lymphadenopathy, normal ROM, no other, no rigidity, no stridor, no thyromegaly - Respiratory Respiratory: bilateral: CTA, negative: diminished, dullness, rales, rhonchi - Cardiovascular Rhythm: regular Heart sounds: normal: S1, S2 Abnormal Heart Sounds: no systolic murmur, no diastolic murmur, no rub, no S3 Gallop, no S4 Gallop, no click, no other - Gastrointestinal General gastrointestinal: normal bowel sounds, soft, generalized tenderness. - Integumentary Integumentary: no rash - Neurologic Neurologic: CNII-XII intact - Musculoskeletal Musculoskeletal: gait normal, strength equal bilaterally - Psychiatric Psychiatric: A&O x's 3, appropriate affect Results CBC & Chem 7: 01/05/20 11:05 01/05/20 11:05 Thrombosis Risk Factor Assmnt - DVT/VTE Prophylaxis DVT/VTE Prophylaxis: Pharmacologic Prophylaxis ordered Assessment and Plan Plan: 1. Acute kidney injury with chronic kidney disease stage III. Avoid nephrotoxic agents, nonsteroidal anti-inflammatory. Continue IV fluids at 70 mL/h, recheck electrolytes and renal function in the morning. 2. Electrolyte abnormalities with hyponatremia and hypokalemia. Patient is sta tus post potassium replacement, continue IV fluids. Recheck electrolytes. 3. Acute diverticulitis. Continue IV antibiotics with Levaquin and Flagyl. 4. QT prolongation. Consult with cardiology. 5. Hypertension and hypertensive cardiovascular disease. Continue amlodipine 5 mg daily, Bystolic 5 mg twice daily. 6. Peripheral vascular disease with history of left common iliac artery stent graft with focal aneurysm 3.2 cm severe stenosis beyond aneurysm, right common iliac artery 2.6 cm with modest focal stenosis just beyond. Palpable aneurysm in the left lower quadrant, nontender to palpate. 7. Bilateral avascular necrosis bilateral femoral seen by Dr. Whipple orthopedic surgeon no intervention needed 8. History of Viridans strep bacteremia secondary to endovascular infection. 9. Chronic back pain. 10. Chronic anemia of chronic disease. Hemoglobin stable 11. Paroxysmal atrial fibrillation. Continue eliquis and Byistolic. 12. Hep C S/P Harvoni therapy. 13. Hyperlipidemia. Patient was unable to tolerate Lipitor. 14. Abdominal aortic aneurysm S/P endovascular stent. 15. Chronic tobacco use and dependence. Smoking cessation. 16. Migraine Headache. Patient normally on Topamax 50 mg orally twice every day as well as Fioricet half a pill every 4 hours as needed. 17. Restless leg syndrome. Continue Mirapex 0.125 mg orally at bedtime. 18. Obstructive sleep apnea. Stable. 19. Generalized anxiety disorder with panic disorder Depression, recurrent. Cymbalta 60 mg twice daily and Xanax 1 mg twice daily as needed. 20. Overactive bladder. Hold toviaz. 21. DVT prophylaxis. Eliquis. 22. GI prophylaxis. Pepcid. Estimated length of stay is 3 midnights. Discharge plan: To be determined. PT and OT consults. Impression and plan of care have been directed as dictated by the signing physician. Coby Joaquin nurse practitioner acting as scribe for signing physician.
[2020-01-05] MEDS ORDERED: LEVOFLOXACIN 500MG-D5W PMX 500 MG in DEXTROSE/WATER 1 100ML.BAG IVPB SCH (16:00)
[2020-01-05] MEDS: IPRATROPIUM 0.5 MG/2.5 ML NEBU INHALATION SCH (20:53)
[2020-01-05] MEDS ORDERED: FAMOTIDINE 20 MG TAB PO SCH (21:00)
[2020-01-05] MEDS: amLODIPine 5 MG TAB PO SCH (21:34)
[2020-01-05] MEDS: SODIUM CHLORIDE 0.9% 1,000 ML IV SCH (21:34)
[2020-01-05] MEDS: APIXABAN 2.5 MG TABLET PO SCH (21:34)
[2020-01-05] MEDS: DULoxetine HCL 60 MG CAPSULE.DR PO SCH (21:34)
[2020-01-05] MEDS: PRAMIPEXOLE 0.125 MG TAB PO SCH (21:35)
[2020-01-05] MEDS: ALPRAZolam 1 MG TAB PO PRN (21:35)
[2020-01-05] MEDS: NEBIVOLOL 5 MG TAB PO SCH (21:35)
[2020-01-05] MEDS: metroNIDAZOLE-NS PMX 500 MG in SALINE 1 100ML.BAG IVPB SCH (23:32)
[2020-01-06] MEDS: SODIUM CHLORIDE 0.9% 1,000 ML IV SCH ×2 (03:10→15:07)
[2020-01-06] MEDS: oxyCODONE-APAP 5-325MG 1 EACH TAB PO PRN (04:59)
[2020-01-06] MEDS: LEVOTHYROXINE 50 MCG TAB PO SCH (05:56)
[2020-01-06 06:17] LABS: Appearance,Urine Clear (Clear); Bilirubin,Urine Negative (Negative); Blood,Urine Negative (Negative); Color,Urine Light Yellow; Glucose,Urine (UA) 2+ (Negative); Ketones,Urine Negative (Negative); Leukocyte Esterase,Urine Negative (Negative); Mucus,Urine Rare /hpf; Nitrite,Urine Negative (Negative); PH, Urine 6.5 (5.0-8.0); Protein,Urine 2+ (Negative); RBC,Urine 2 /hpf (0-5); Specific Gravity,Urine 1.009 (1.001-1.035); Squamous Epithelial Cell,Urine <1 /hpf (0-4); Urobilinogen,Urine <2.0 mg/dL (<2.0); WBC,Urine 1 /hpf (0-5)
[2020-01-06] MEDS: IPRATROPIUM 0.5 MG/2.5 ML NEBU INHALATION SCH ×4 (07:38→19:30)
[2020-01-06] MEDS: metroNIDAZOLE-NS PMX 500 MG in SALINE 1 100ML.BAG IVPB SCH (08:00)
[2020-01-06] MEDS: NEBIVOLOL 5 MG TAB PO SCH ×2 (08:01→20:31)
[2020-01-06] MEDS: FAMOTIDINE 20 MG TAB PO SCH (08:01)
[2020-01-06] MEDS: DULoxetine HCL 60 MG CAPSULE.DR PO SCH (08:01)
[2020-01-06] MEDS: APIXABAN 2.5 MG TABLET PO SCH ×2 (08:01→20:32)
[2020-01-06] MEDS: ASPIRIN 81 MG PO SCH (08:01)
[2020-01-06 08:35] LABS: Basophils % (A) 0 %; Eosinophils # (A) 0.1 k/uL (0-0.7); Eosinophils % (A) 1 %; HCT 31.9 % (34.0-46.0); HGB 9.7 gm/dL (11.4-16.0); Hypochromasia Moderate; Lymphocytes # (A) 1.1 k/uL (1.0-4.8); Lymphocytes % (A) 14 %; MCH 26.9 pg (25.0-35.0); MCHC 30.3 g/dL (31.0-37.0); MCV 88.6 fL (80.0-100.0); Mean Platelet Volume 8.2; Monocytes # (A) 0.4 k/uL (0-1.0); Monocytes % (A) 5 %; Neutrophils # (A) 6.2 k/uL (1.3-7.7); Neutrophils % (A) 78 %; Platelet Count 196 k/uL (150-450); RDW 15.8 % (11.5-15.5)
[2020-01-06] MEDS ORDERED: amLODIPine 5 MG TAB PO SCH (09:00)
[2020-01-06 09:12] LABS: Calcium 7.9 mg/dL (8.4-10.2); Magnesium 1.7 mg/dL (1.6-2.3); Potassium 3.6 mmol/L (3.5-5.1)
[2020-01-06] MEDS: POTASSIUM CHLORIDE ER 20 MEQ TAB.ER PO SCH ×2 (09:23→10:28)
--- NOTE | 2020-01-06 10:20 | P.CRDCN ---
History of Present Illness History of present illness: HISTORY OF PRESENTING ILLNESS This is a pleasant 69-year-old female past medical history significant for coronary artery disease s/p PCI RCA 2011, paroxysmal atrial fibrillation on unitizer anticoagulation, hypertension, dyslipidemia, COPD, sleep apnea, peripheral vascular disease s/p aortic stent graft placement, anxiety and depression. She follows in the office with Dr. Zavala. We have been asked to see in consultation for prolonged QT interval. She presented to the hospital with symptoms of increased weakness and fatigue that has been getting progressively worse over the last 7-10 days. She also has been feeling mildly short of breath, lower abdominal pain and nausea intermittently. No chest pain, dizziness or palpitations. She is seen and examined sitting up eating breakfast in no acute distress. She has been diagnosed with acute kidney injury and diverticulitis. C urrently maintained on IV antibiotics, flagyl and levaquin. Most recent echocardiogram obtained in September 2019 reveals preserved LV systolic function with ejection fraction 60-65%. Most recent cardiac catheterization in 2016 revealed a patent stent in the mid RCA, 30% disease of the circumflex, proximal LAD with 30-40% stenosis and 40% in the mid region. DIAGNOSTICS EKG reveals sinus mechanism, left anterior fasicular block, biphasic p-waves and non-specific changes. QTc slightly over 500. CT of the abdomen and pelvis revealed a dilated common bile duct, moderate colonic fecal stasis and few loops of dilated fluid-filled small bowel in the right abdomen, abdominal aortic aneurysm with vascular stent graft placed and avascular necrosis of the hips. Laboratory reviewed, WBC 8, hemoglobin 9.7, platelets 196, sodium 137, potassium on admission 2.9 and repeat today after supplementation 3.6, creatinine on admission 2.8 5 repeat today 2.4, magnesium 1.7, albumin 3.0. Current cardiac medications include amlodipine 5 mg daily, by systolic 5 mg twice a day, aspirin 81 mg daily and Eliquis 2.5 mg twice a day. REVIEW OF SYSTEMS At the time of my exam: CONSTITUTIONAL: Denies fever or chills. CARDIOVASCULAR: Denies chest pain, shortness of breath, orthopnea, PND or palpitations. RESPIRATORY: Denies cough. GASTROINTESTINAL: Denies abdominal pain, diarrhea, constipation, nausea or vom iting. MUSCULOSKELETAL: Denies myalgias. NEUROLOGIC: Denies numbness, tingling or weakness. ENDOCRINE: Denies fatigue, weight change, polydipsia or polyurina. GENITOURINARY: Denies burning, hematuria or urgency with micturation. HEMATOLOGIC: Denies history of anemia or bleeding. PHYSICAL EXAMINATION Blood pressure 121/50 heart rate 76 afebrile and maintaining oxygen saturation on room air. CONSTITUTIONAL: No apparent distress. Frail. HEENT: Head is normocephalic. Pupils are equal, round. Sclerae anicteric. Mucous membranes of the mouth are moist. No JVD. No carotid bruit. CHEST EXAMINATION: Lungs are clear to auscultation. No chest wall tenderness is noted on palpation or with deep breathing. Diminished bilaterally. HEART EXAMINATION: Regular rate and rhythm. S1, S2 heard. No murmurs, gallops or rub. ABDOMEN: Soft, nontender. Positive bowel sounds. EXTREMITIES: 2+ peripheral pulses, no lower extremity edema and no calf tenderness. NEUROLOGIC EXAMINATION: Patient is awake, alert and oriented x3. ASSESSMENT QT prolongation secondary to hypokalemia Hypokalemia Acute kidney injury Paroxysmal atrial fibrillation on long-term anticoagulation currently maintaining sinus mechanism Coronary artery disease status post PCI of the RCA in 2011 Hypertension Dyslipidemia COPD Peripheral vascular disease status post aortic stent placement Chronic nicotine dependence Frail, BMI 13 PLAN Recommend discontinuation of Levaquin and Cymbalta as these medications can further prolong the QT interval. Give additional oral dose of potassium 20 MEQ now and repeat in 1 hour. Repeat EKG this morning. Thank you kindly for this consultation. Nurse Practitioner note has been reviewed, I agree with a documented findings and plan of care. Patient was seen and examined. Past Medical History Past Medical History: Atrial Fibrillation, Asthma, Coronary Artery Disease (CAD), Chest Pain / Angina, COPD, Deep Vein Thrombosis (DVT), GERD/Reflux, GI Bleed, Hypertension, Liver Disease, Memory Impairment, Myocardial Infarction ([place]), Pneumonia, Respiratory Disorder, Sleep Apnea/CPAP/BIPAP, Vascular Disorder Additional Past Medical History / Comment(s): on 10/25/18 pt states was having pizza with family and food got stuck, pt had small amount of emesis. She went to bed and woke up to discover that she was incontinent of stool while she slept. Pt states that this has never happened.Patient continues to have difficulty swallowing like before. HEP C. Aortic aneurysm with stent-being monitored, Takosubu syndrome in 2016, R groin dissection/cardiac cath, recent bacteremia- blood cultures positive for veridans strep-completed antibiotics, bronchitis, home O2 at 3L/NC most of the time, LG without device-stable, DVT R leg, lower GI bleed, hepatitis C with Harvoni treatment, anemia with iron infusions x2, bilateral femoral head avascular necrosis, RLS, migraines, insomnia, constipation, overactive bladder, post menopausal bleed. Last Myocardial Infarction Date:: 07/2017 History of Any Multi-Drug Resistant Organisms: None Reported Past Surgical History: Bladder Surgery, Cholecystectomy, Heart Catheterization With Stent, Hysterectomy, Orthopedic Surgery Additional Past Surgical History / Comment(s): Gallbladder removed (2018) AAA 2006 (stent) Past Anesthesia/Blood Transfusion Reactions: No Reported Reaction Date of Last Stent Placement:: 2010 Past Psychological History: Anxiety, Depression, Panic Disorder Smoking Status: Current every day smoker Past Alcohol Use History: None Reported Additional Past Alcohol Use History / Comment(s): She was a smoker starting in 1956. Smokes approx 5-8 cig.'s per day. Quit last Jun. but started again. Past Drug Use History: None Reported - Past Family History Brother(s) Family Medical History: Coronary Artery Disease (CAD), Myocardial Infarction ([place]) Father Additional Family Medical History / Comment(s): FROM CIRRHOSIS OF THE LIVER Mother Family Medical History: COPD Additional Family Medical History / Comment(s): FROM AAA, HAD HX of TB. Medications and Allergies Home Medications Medication Instructions Recorded Confirmed Type Apixaban [Eliquis] 2.5 mg PO BID #60 tablet 03/02/19 01/05/20 Rx DULoxetine HCL [Cymbalta] 60 mg PO BID 09/28/19 01/05/20 History Fesoterodine Fumarate [Toviaz] 8 mg PO DAILY 09/28/19 01/05/20 History Pramipexole [Mirapex] 0.125 mg PO HS 09/28/19 01/05/20 History Nebivolol [Bystolic] 5 mg PO BID tab 09/30/19 01/05/20 Rx ALPRAZolam [Xanax] 1 mg PO BID PRN 01/05/20 01/05/20 History Aspirin 81 mg PO DAILY 01/05/20 01/05/20 History Dexlansoprazole [Dexilant] 60 mg PO DAILY 01/05/20 01/05/20 History Dicyclomine [Bentyl] 20 mg PO TID PRN 01/05/20 01/05/20 History Levothyroxine Sodium [Synthroid] 50 mcg PO DAILY 01/05/20 01/05/20 History Tiotropium [place] [Spiriva 8 gm INHALATION RT-BID 01/05/20 01/05/20 History Respimat] amLODIPine [Norvasc] 5 mg PO DAILY 01/05/20 01/05/20 History Allergies Allergy/AdvReac Type Severity Reaction Status Date / Time naproxen sodium [From Aleve] Allergy Severe Anaphylaxis Verified 01/05/20 13:35 adhesive Allergy Rash/Hives Verified 01/05/20 13:35 clindamycin Allergy Anaphylaxis Verified 01/05/20 13:35 gentamicin [Gentamicin] Allergy SWELLING Verified 01/05/20 13:35 OF FACE W/ EYE DROPS latex Allergy Rash/Hives Verified 01/05/20 13:35 levothyroxine sodium Allergy Unknown Verified 01/05/20 13:35 [From Synthroid] losartan Allergy Unknown Verified 01/05/20 13:35 Penicillins Allergy Rash/Hives Verified 01/05/20 13:35 Sulfa (Sulfonamide Allergy Swelling Verified 01/05/20 13:35 Antibiotics) IN MOUTH sulfamethoxazole Allergy swelling Verified 01/05/20 13:35 [From Bactrim] tongue sulfanilamide Allergy Unknown Verified 01/05/20 13:35 trimethoprim [From Bactrim] Allergy Swelling Verified 01/05/20 13:35 venom-honey bee Allergy Dyspnea Verified 01/05/20 13:35 [bee venom (honey bee)] cinnamon [Cinnamon] AdvReac Dyspnea Verified 01/05/20 13:35 codeine AdvReac Nausea & Verified 01/05/20 13:35 Vomiting paola AdvReac Dyspnea Verified 01/05/20 13:35 Iodinated Contrast Media AdvReac Dyspnea Verified 01/05/20 13:35 [Iodinated Contrast- Oral and IV Dye] montelukast sodium AdvReac Wheezing Verified 01/05/20 13:35 [From Singulair] pantoprazole sodium AdvReac Abdominal Verified 01/05/20 13:35 [From Protonix] Pain red dye AdvReac Abdominal Verified 01/05/20 13:35 Pain BANDAIDS Allergy Rash/Hives Uncoded 01/05/20 13:36 Dye for gallbladder scan. Allergy Anaphylaxis Uncoded 01/05/20 13:36 tomatoes Allergy Abdominal Uncoded 01/05/20 13:36 Pain Physical Exam Vitals: Vital Signs Temp Pulse Pulse Resp BP BP BP 01/06/20 07:48 76 01/06/20 07:39 74 01/06/20 07:00 98.2 F 59 L 16 121/50 01/06/20 01:30 98.3 F 63 20 167/77 01/05/20 23:51 18 01/05/20 20:53 70 18 01/05/20 19:30 98.4 F 79 20 154/69 01/05/20 15:00 98.0 F 70 19 133/57 01/05/20 14:21 69 18 167/72 01/05/20 13:02 64 20 175/77 01/05/20 10:50 97.6 F 75 18 140/82 Pulse Ox 01/06/20 07:48 01/06/20 07:39 01/06/20 07:00 99 01/06/20 01:30 99 01/05/20 23:51 01/05/20 20:53 01/05/20 19:30 96 01/05/20 15:00 98 01/05/20 14:21 97 01/05/20 13:02 98 01/05/20 10:50 98 Intake and Output 01/05/20 01/06/20 01/06/20 22:59 06:59 14:59 Intake Total 560 540 Output Total 200 Balance 560 340 Intake: Intake, IV Titration 560 540 Amount Sodium Chloride 0.9% 1, 560 540 000 ml @ 70 mls/hr IV . [id number] [facility] Rx#:[id number] Output: Urine 200 Other: Voiding Method Bedpan # Voids 2 3 Results 01/06/20 08:15 01/06/20 08:15 Cardiac Enzymes 01/05/20 Range/Units 11:05 AST 29 (14-36) U/L Coagulation 01/05/20 Range/Units 11:05 PT 10.1 (9.0-12.0) sec APTT 24.7 (22.0-30.0) sec CBC 01/05/20 01/06/20 Range/Units 11:05 08:15 WBC 7.9 8.0 (3.8-10.6) k/uL RBC 3.91 3.60 L (3.80-5.40) m/uL Hgb 10.9 L 9.7 L (11.4-16.0) gm/dL Hct 33.8 L 31.9 L (34.0-46.0) % Plt Count 261 196 (150-450) k/uL Comprehensive Metabolic Panel 01/05/20 01/06/20 Range/Units 11: 08: Sodium 133 L 137 (137-145) mmol/L Potassium 2.9 L 3.6 (3.5-5.1) mmol/L Chloride 101 108 H (98-107) mmol/L Carbon Dioxide 24 20 L (22-30) mmol/L BUN 35 H 34 H (7-17) mg/dL Creatinine 2.85 H 2.40 H (0.52-1.04) mg/dL Glucose 131 H 108 H (74-99) mg/dL Calcium 8.5 7.9 L (8.4-10.2) mg/dL AST 29 (14-36) U/L ALT 10 (4-34) U/L Alkaline Phosphatase 106 (38-126) U/L Total Protein 6.0 L (6.3-8.2) g/dL Albumin 3.0 L (3.5-5.0) g/dL Current Medications Generic Name Dose Route Start Last Admin Trade Name Freq PRN Reason Stop Dose Admin Acetaminophen 650 mg 01/05/20 13:18 Tylenol Tab PO Q6HR PRN Mild Pain or Fever > 100.5 Alprazolam 1 mg 01/05/20 15:01/05/20 21:35 Xanax PO 1 mg BID PRN Administration Anxiety Amlodipine Besylate 5 mg 01/05/20 21:30 01/05/20 21:34 Norvasc PO 5 mg HS CRISTA Administration Apixaban 2.5 mg 01/05/20 21:00 01/06/20 08:01 Eliquis PO 2.5 mg BID CRISTA Administration Aspirin 81 mg 01/06/20 09:00 01/06/20 08:01 Aspirin PO 81 mg DAILY CRISTA Administration Dicyclomine HCl 20 mg 01/05/20 15:01/05/20 22:54 Bentyl PO 20 mg TID PRN Administration stomach cramping Famotidine 20 mg 01/06/20 09:00 01/06/20 08:01 Pepcid PO 20 mg DAILY [facility] Administration Sodium Chloride 1,000 mls @ 125 mls/hr 01/05/20 13:30 01/06/20 03:10 Saline 0.9% IV Not Given .Q8H [facility] Ipratropium Pomeroy 0.5 mg 01/05/20 20:00 01/06/20 07:38 Atrovent Nebulized INHALATION 0.5 mg RT-QID [facility] Administration Levofloxacin 250 mg 01/06/20 16:00 Levaquin PO DAILY@1600 [facility] Levothyroxine Sodium 50 mcg 01/06/20 06:30 01/06/20 05:56 Synthroid PO 50 mcg 0630 [facility] Administration Metronidazole 500 mg 01/06/20 16:00 Flagyl PO Q8HR [facility] Morphine Sulfate 4 mg 01/05/20 11:13 01/05/20 11:37 Morphine Sulfate (Inj) IVP 2 mg ONCE PRN Administration Pain Naloxone HCl 0.2 mg 01/05/20 13:18 Narcan IV Q2M PRN Opioid Reversal Nebivolol 5 mg 01/05/20 21:00 01/06/20 08:01 Bystolic PO 5 mg BID [facility] Administration Oxycodone/Acetaminophen 1 each 01/05/20 13:18 01/06/20 04:59 Percocet 5-325 PO 1 each Q4HR PRN Administration Severe Pain Potassium Chloride 20 meq 01/06/20 09:00 01/06/20 09:23 K-Dur 20 PO 01/06/20 10:01 20 meq Q1HR [facility] Administration Pramipexole Dihydrochloride 0.125 mg 01/05/20 21:00 01/05/20 21:35 Mirapex PO 0.125 mg HS [facility] Administration Intake and Output 01/05/20 01/06/20 01/06/20 22:59 06:59 14:59 Intake Total 560 540 Output Total 200 Balance 560 340 Intake: Intake, IV Titration 560 540 Amount Sodium Chloride 0.9% 1, 560 540 000 ml @ 70 mls/hr IV . [id number] [facility] Rx#:[id number] Output: Urine 200 Other: Voiding Method Bedpan # Voids 2 3 01/06/20 08:15 01/06/20 08:15
[2020-01-06 11:08] VITALS: BMI 13.1
--- NOTE | 2020-01-06 12:47 | P.PN ---
Subjective Progress Note Date: 01/06/20 This is a 68-year-old female one of Dr. Colbert patient with past medical history of hepatitis C post the Harvoni therapy, history of CAD with non-ST elevated myocardial infarction in April 2017 status post heart catheterization and stenting of the RCA with heavily calcified right and left coronary systems and recommendations to maximize medical treatment, COPD, asthma, chronic hypoxic respiratory failure on home O2 at 3 L nasal cannula, previous history of DVT along with Takosubu syndrome, GI bleed (April 2016), chronic kidney disease III, multiple admissions for failure to thrive and chronic abdominal pain. 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 Islas at that time. History of carotid stenosis and aortic aneurysm followed by Dr. Costa. Patient complains of weakness for 10 days and gradually worsening. Weakness is continued to worsen she is unable to get out of bed or ambulate with a walker. Patient complains of nausea. She complains of pain in her abdomen and her lower back area. No diarrhea. Abdominal pain is in the left lower quadrant. Patient was afebrile, heart rate 75, blood pressure 140/82, pulse ox 90% on room air. Hemoglobin 10.9, WBC 7.9, platelet count 261. Sodium 133, potassium 2.9, chloride 101, CO2 24, BUN 35 and creatinine 2.85, blood sugar 131. Liver function tests within normal limits. Lactic acid 1.7. CAT scan of the abdomen and pelvis without contrast revealed dilated common bile duct. Correlate with lab values and HIDA scan if concern for acute cholecystitis. Ultrasound is unlikely to be beneficial due to adjacent bowel loops. Moderate degree of colonic fecal stasis and feelings dilated fluid-filled small bowel in the right abdomen. Findings favor ileus. Avascular necrosis of the hips. Patient received a dose of ceftriaxone and Flagyl, 1 L of IV fluids. Patient admitted to the MedSurg floor and consult requested with cardiology for prolonged QT. Coronavirus testing in process. Patient is currently smoking half a pack per day. She utilizes oxygen at bedtime only. She has nebulizer. 01/05: The patient has been seen by analytical statistician for QT prolongation. The most likely due to hypokalemia and okay to continue Levaquin and hold Cymbalta for 48 hours. We will plan to add in general surgery and patient would like Dr. Milligan. Ultrasound of the abdomen to evaluate cholecystitis added. Patient continues to have abdominal pain which is in the left lower quadrant at this time. Patient is been afebrile, heart rate 74, blood pressure 121/50, pulse ox 99% on room air. Repeat WBC 8, hemoglobin 9.7, BUN 34 and creatinine 2.4. Objective - Vital Signs Vital signs: Vital Signs Temp 98.2 F 01/06/20 07:00 Pulse 76 01/06/20 07:48 Resp 16 01/06/20 07:00 BP 121/50 01/06/20 07:00 Pulse Ox 99 01/06/20 07:00 Intake & Output 01/05/20 01/06/20 01/06/20 18:59 06:59 18:59 Intake Total 1100 Output Total 200 Balance 900 Weight 33.566 kg Intake: Intake, IV Titration 1100 Amount Sodium Chloride 0.9% 1, 1100 000 ml @ 70 mls/hr IV . [id number] [facility] Rx#:[id number] Output: Urine 200 Other: Voiding Method Bedpan # Voids 3 - Exam Review of Systems Constitutional: Reports anorexia, Reports fatigue, Reports lethargy, Reports malaise, Reports poor appetite, Reports weakness, Reports weight loss, Denies chills, Denies fever Eyes: denies blurred vision, denies pain Ears, nose, mouth and throat: Denies dysphagia, Denies headache, Denies nasal congestion, Denies nasal discharge, Denies sore throat, Denies vertigo Cardiovascular: Denies chest pain, Denies decreased exercise tolerance, Denies dyspnea on exertion, Denies edema, Denies leg edema, Denies lightheadedness, Denies shortness of breath, Denies syncope Respiratory: Denies cough, Denies cough with sputum, Denies dyspnea, Denies excessive sputum, Denies hemoptysis, Denies home oxygen, Denies respiratory infections, Denies wheezing Gastrointestinal: Reports abdominal pain, Reports nausea, Denies constipation, Denies diarrhea, Denies loss of appetite, Denies vomiting Genitourinary: Denies dysuria, Denies hematuria, Denies urgency, Denies urinary frequency Menstruation: Reports postmenopausal Musculoskeletal: Reports gait dysfunction, Reports muscle weakness, Denies frequ ent falls, Denies myalgias Integumentary: Denies pruritus, Denies rash, Denies wounds Neurological: Denies change in mentation, Denies change in speech, Denies numbness, Denies seizures, Denies weakness Psychiatric: Denies anxiety, Denies depression Endocrine: Denies fatigue, Denies weight change Physical Examination: - Constitutional General appearance: cooperative, in no acute distress, frail appearing - EENT Eyes: anicteric sclerae, PERRLA, normal appearance ENT: hearing grossly normal NG tube with bile-colored return. - Neck Neck: no lymphadenopathy, normal ROM, no other, no rigidity, no stridor, no thyromegaly - Respiratory Respiratory: bilateral: CTA, negative: diminished, dullness, rales, rhonchi - Cardiovascular Rhythm: regular Heart sounds: normal: S1, S2 Abnormal Heart Sounds: no systolic murmur, no diastolic murmur, no rub, no S3 Gallop, no S4 Gallop, no click, no other - Gastrointestinal General gastrointestinal: normal bowel sounds, soft, left lower quadrant tenderness. - Integumentary Integumentary: no rash - Neurologic Neurologic: CNII-XII intact - Musculoskeletal Musculoskeletal: gait normal, strength equal bilaterally - Psychiatric Psychiatric: A&O x's 3, appropriate affect - Labs CBC & Chem 7: 01/06/20 08:15 01/06/20 08:15 Labs: Abnormal Lab Results - Last 24 Hours (Table) 01/05/20 01/05/20 01/06/20 Range/Units 11:05 11:05 04:55 RBC (3.80-5.40) m/uL Hgb 10.9 L (11.4-16.0) gm/dL Hct 33.8 L (34.0-46.0) % MCHC (31.0-37.0) g/dL RDW 16.2 H (11.5-15.5) % Sodium 133 L (137-145) mmol/L Potassium 2.9 L (3.5-5.1) mmol/L Chloride (98-107) mmol/L Carbon Dioxide (22-30) mmol/L BUN 35 H (7-17) mg/dL Creatinine 2.85 H (0.52-1.04) mg/dL Glucose 131 H (74-99) mg/dL Calcium (8.4-10.2) mg/dL Total Protein 6.0 L (6.3-8.2) g/dL Albumin 3.0 L (3.5-5.0) g/dL Urine Protein 2+ H (Negative) Urine Glucose (UA) 2+ H (Negative) Urine Mucus Rare H (None) /hpf 01/06/20 01/06/20 Range/Units 08:15 08:15 RBC 3.60 L (3.80-5.40) m/uL Hgb 9.7 L (11.4-16.0) gm/dL Hct 31.9 L (34.0-46.0) % MCHC 30.3 L (31.0-37.0) g/dL RDW 15.8 H (11.5-15.5) % Sodium (137-145) mmol/L Potassium (3.5-5.1) mmol/L Chloride 108 H (98-107) mmol/L Carbon Dioxide 20 L (22-30) mmol/L BUN 34 H (7-17) mg/dL Creatinine 2.40 H (0.52-1.04) mg/dL Glucose 108 H (74-99) mg/dL Calcium 7.9 L (8.4-10.2) mg/dL Total Protein (6.3-8.2) g/dL Albumin (3.5-5.0) g/dL Urine Protein (Negative) Urine Glucose (UA) (Negative) Urine Mucus (None) /hpf Assessment and Plan Plan: 1. Acute kidney injury with chronic kidney disease stage III. Avoid nephrotoxic agents, nonsteroidal anti-inflammatory. Continue IV fluids at 70 mL/h, recheck electrolytes and renal function in the morning. 2. Electrolyte abnormalities with hyponatremia and hypokalemia. Patient is status post potassium replacement, continue IV fluids. Recheck electrolytes. 3. Acute diverticulitis. Continue IV antibiotics with Levaquin and Flagyl. 4. QT prolongation secondary to hypokalemia. Consult with cardiology appreciated. Okay to continue Levaquin. Cymbalta on hold for 48 hours. Plan to recheck EKG in the morning. 5. Hypertension and hypertensive cardiovascular disease. Continue amlodipine 5 mg daily, Bystolic 5 mg twice daily. 6. Peripheral vascular disease with history of left common iliac artery stent graft with focal aneurysm 3.2 cm severe stenosis beyond aneurysm, right common iliac artery 2.6 cm with modest focal stenosis just beyond. Palpable aneurysm in the left lower quadrant, nontender to palpate. 7. Bilateral avascular necrosis bilateral femoral seen by Dr. Whipple orthopedic surgeon no intervention needed 8. History of Viridans strep bacteremia secondary to endovascular infection. 9. Chronic back pain. 10. Chronic anemia of chronic disease. Hemoglobin stable 11. Paroxysmal atrial fibrillation. Continue eliquis and Byistolic. 12. Hep C S/P Harvoni therapy. 13. Hyperlipidemia. Patient was unable to tolerate Lipitor. 14. Abdominal aortic aneurysm S/P endovascular stent. 15. Chronic tobacco use and dependence. Smoking cessation. Patient is currently smoking half a pack per day. 16. Migraine Headache. Patient normally on Topamax 50 mg orally twice every day as well as Fioricet half a pill every 4 hours as needed. 17. Restless leg syndrome. Continue Mirapex 0.125 mg orally at bedtime. 18. Obstructive sleep apnea. Stable. 19. Generalized anxiety disorder with panic disorder Depression, recurrent. Cymbalta 60 mg twice daily and Xanax 1 mg twice daily as needed. 20. Overactive bladder. Hold toviaz. 21. DVT prophylaxis. Eliquis. 22. GI prophylaxis. Pepcid. Discharge plan: Home with [facility]. Therapies have recommended and that patient is safe to return home. Impression and plan of care have been directed as dictated by the signing physician. Coby Joaquin nurse practitioner acting as scribe for signing physician.
[2020-01-06] MEDS ORDERED: MAGNESIUM CITRATE 296 ML BOTTLE PO ONE (13:45)
--- NOTE | 2020-01-06 14:09 | P.GSCN ---
History of Present Illness Consult date: 01/06/20 Reason for Consult: Gallbladder disease, diverticulitis Requesting physician: Coby Joaquin History of present illness: CHIEF COMPLAINT: Gallbladder disease, diverticulitis HISTORY OF PRESENT ILLNESS: 69-year-old female who was admitted to hospital secondary to weakness [address] abdomen and pelvis revealing dilated common bile duct, fecal stasis, and thickening of the transverse colon. Hence general surgery was consulted for further evaluation. Patient examined at the bedside with Dr. Milligan. She reports mild diffuse abdominal pain. Denies nausea or vomiting. PAST MEDICAL HISTORY: See list. PAST SURGICAL HISTORY: See list. SOCIAL HISTORY: No illicit drug use. REVIEW OF SYSTEMS: CONSTITUTIONAL: Denies fever or chills. Reports weakness HEENT: Denies blurred vision, vision changes, or eye pain. Denies hemoptysis CARDIOVASCULAR: Denies chest pain or pressure. RESPIRATORY: No shortness of breath. GASTROINTESTINAL: Refer to HPI for pertinent findings HEMATOLOGIC: Denies bleeding disorders. GENITOURINARY: Denies any blood in urine. SKIN: Denies pruitis. Denies rash. PHYSICAL EXAM: VITAL SIGNS: Reviewed. GENERAL: Well-developed in no acute distress. HEENT: No sclera icterus. Extraocular movements grossly intact. Moist buccal mucosa. Head is atraumatic, normocephalic. ABDOMEN: Soft. Nondistended. Mild diffuse tenderness NEUROLOGIC: Alert and oriented. Cranial nerves II through XII grossly intact. LABORATORY DATA: WBC 8.0. Hemoglobin 9.7. Platelet Count 196. Bilirubin 0.4. AST 29. ALT 10. IMAGING: CT abdomen and pelvis: Dilated common bile duct. Moderate degree colonic fecal stasis. Bowel wall thickening of portions of the transverse colon. ASSESSMENT: 1. Abdominal pain 2. Possible mild colitis transverse colon 3. Dilated common bile duct in a patient with history of laparoscopic cho lecystectomy, 2018 4. Fecal stasis PLAN: -Continue diet as tolerated -Continue IV antibiotics -CT shows dilated common bile duct. Patient has a history of laparoscopic cholecystectomy in 2018. Laboratory data does not suggest evidence of choledocholithiasis. No further investigation recommended. -Magnesium citrate 1 dose for fecal stasis. Nurse practitioner note has been reviewed by physician. Signing provider agrees with the documented findings, assessment, and plan of care. Past Medical History Past Medical History: Atrial Fibrillation, Asthma, Coronary Artery Disease (CAD), Chest Pain / Angina, COPD, Deep Vein Thrombosis (DVT), GERD/Reflux, GI Bleed, Hypertension, Liver Disease, Memory Impairment, Myocardial Infarction ([place]), Pneumonia, Respiratory Disorder, Sleep Apnea/CPAP/BIPAP, Vascular Disorder Additional Past Medical History / Comment(s): on 10/25/18 pt states was having pizza with family and food got stuck, pt had small amount of emesis. She went to bed and woke up to discover that she was incontinent of stool while she slept. Pt states that this has never happened.Patient continues to have difficulty swallowing like before. HEP C. Aortic aneurysm with stent-being monitored, Takosubu syndrome in 2016, R groin dissection/cardiac cath, recent bacteremia- blood cultures positive for veridans strep-completed antibiotics, bronchitis, home O2 at 3L/NC most of the time, LG without device-stable, DVT R leg, lower GI bleed, hepatitis C with Harvoni treatment, anemia with iron infusions x2, bilateral femoral head avascular necrosis, RLS, migraines, insomnia, constipation, overactive bladder, post menopausal bleed. Last Myocardial Infarction Date:: 07/2017 History of Any Multi-Drug Resistant Organisms: None Reported Past Surgical History: Bladder Surgery, Cholecystectomy, Heart Catheterization With Stent, Hysterectomy, Orthopedic Surgery Additional Past Surgical History / Comment(s): Gallbladder removed (2018) AAA 2006 (stent) Past Anesthesia/Blood Transfusion Reactions: No Reported Reaction Date of Last Stent Placement:: 2010 Past Psychological History: Anxiety, Depression, Panic Disorder Smoking Status: Current every day smoker Past Alcohol Use History: None Reported Additional Past Alcohol Use History / Comment(s): She was a smoker starting in 1956. Smokes approx 5-8 cig.'s per day. Quit last Jun. but started again. Past Drug Use History: None Reported - Past Family History Brother(s) Family Medical History: Coronary Artery Disease (CAD), Myocardial Infarction ([place]) Father Additional Family Medical History / Comment(s): FROM CIRRHOSIS OF THE LIVER Mother Family Medical History: COPD Additional Family Medical History / Comment(s): FROM AAA, HAD HX of TB. Medications and Allergies Home Medications Medication Instructions Recorded Confirmed Type Apixaban [Eliquis] 2.5 mg PO BID #60 tablet 03/02/19 01/05/20 Rx DULoxetine HCL [Cymbalta] 60 mg PO BID 09/28/19 01/05/20 History Fesoterodine Fumarate [Toviaz] 8 mg PO DAILY 09/28/19 01/05/20 History Pramipexole [Mirapex] 0.125 mg PO HS 09/28/19 01/05/20 History Nebivolol [Bystolic] 5 mg PO BID tab 09/30/19 01/05/20 Rx ALPRAZolam [Xanax] 1 mg PO BID PRN 01/05/20 01/05/20 History Aspirin 81 mg PO DAILY 01/05/20 01/05/20 History Dexlansoprazole [Dexilant] 60 mg PO DAILY 01/05/20 01/05/20 History Dicyclomine [Bentyl] 20 mg PO TID PRN 01/05/20 01/05/20 History Levothyroxine Sodium [Synthroid] 50 mcg PO DAILY 01/05/20 01/05/20 History Tiotropium [place] [Spiriva 8 gm INHALATION RT-BID 01/05/20 01/05/20 History Respimat] amLODIPine [Norvasc] 5 mg PO DAILY 01/05/20 01/05/20 History Allergies Allergy/AdvReac Type Severity Reaction Status Date / Time naproxen sodium [From Aleve] Allergy Severe Anaphylaxis Verified 01/05/20 13:35 adhesive Allergy Rash/Hives Verified 01/05/20 13:35 clindamycin Allergy Anaphylaxis Verified 01/05/20 13:35 gentamicin [Gentamicin] Allergy SWELLING Verified 01/05/20 13:35 OF FACE W/ EYE DROPS latex Allergy Rash/Hives Verified 01/05/20 13:35 levothyroxine sodium Allergy Unknown Verified 01/05/20 13:35 [From Synthroid] losartan Allergy Unknown Verified 01/05/20 13:35 Penicillins Allergy Rash/Hives Verified 01/05/20 13:35 Sulfa (Sulfonamide Allergy Swelling Verified 01/05/20 13:35 Antibiotics) IN MOUTH sulfamethoxazole Allergy swelling Verified 01/05/20 13:35 [From Bactrim] tongue sulfanilamide Allergy Unknown Verified 01/05/20 13:35 trimethoprim [From Bactrim] Allergy Swelling Verified 01/05/20 13:35 venom-honey bee Allergy Dyspnea Verified 01/05/20 13:35 [bee venom (honey bee)] cinnamon [Cinnamon] AdvReac Dyspnea Verified 01/05/20 13:35 codeine AdvReac Nausea & Verified 01/05/20 13:35 Vomiting paola AdvReac Dyspnea Verified 01/05/20 13:35 Iodinated Contrast Media AdvReac Dyspnea Verified 01/05/20 13:35 [Iodinated Contrast- Oral and IV Dye] montelukast sodium AdvReac Wheezing Verified 01/05/20 13:35 [From Singulair] pantoprazole sodium AdvReac Abdominal Verified 01/05/20 13:35 [From Protonix] Pain red dye AdvReac Abdominal Verified 01/05/20 13:35 Pain BANDAIDS Allergy Rash/Hives Uncoded 01/05/20 13:36 Dye for gallbladder scan. Allergy Anaphylaxis Uncoded 01/05/20 13:36 tomatoes Allergy Abdominal Uncoded 01/05/20 13:36 Pain Surgical - Exam Vital Signs Temp Pulse Resp BP Pulse Ox 97.6 F 75 18 140/82 98 01/05/20 10:50 01/05/20 10:50 01/05/20 10:50 01/05/20 10:50 01/05/20 10:50 Results - Labs 01/06/20 08:15 01/06/20 08:15 Abnormal Lab Results - Last 24 Hours (Table) 01/06/20 01/06/20 01/06/20 Range/Units 04:55 08:15 08:15 RBC 3.60 L (3.80-5.40) m/uL Hgb 9.7 L (11.4-16.0) gm/dL Hct 31.9 L (34.0-46.0) % MCHC 30.3 L (31.0-37.0) g/dL RDW 15.8 H (11.5-15.5) % Chloride 108 H (98-107) mmol/L Carbon Dioxide 20 L (22-30) mmol/L BUN 34 H (7-17) mg/dL Creatinine 2.40 H (0.52-1.04) mg/dL Glucose 108 H (74-99) mg/dL Calcium 7.9 L (8.4-10.2) mg/dL Urine Protein 2+ H (Negative) Urine Glucose (UA) 2+ H (Negative) Urine Mucus Rare H (None) /hpf Diabetes panel 01/06/20 Range/Units 08:15 Sodium 137 (137-145) mmol/L Potassium 3.6 (3.5-5.1) mmol/L Chloride 108 H (98-107) mmol/L Carbon Dioxide 20 L (22-30) mmol/L BUN 34 H (7-17) mg/dL Creatinine 2.40 H (0.52-1.04) mg/dL Glucose 108 H (74-99) mg/dL Calcium 7.9 L (8.4-10.2) mg/dL Calcium panel 01/06/20 Range/Units 08:15 Calcium 7.9 L (8.4-10.2) mg/dL Pituitary panel 01/06/20 Range/Units 08:15 Sodium 137 (137-145) mmol/L Potassium 3.6 (3.5-5.1) mmol/L Chloride 108 H (98-107) mmol/L Carbon Dioxide 20 L (22-30) mmol/L BUN 34 H (7-17) mg/dL Creatinine 2.40 H (0.52-1.04) mg/dL Glucose 108 H (74-99) mg/dL Calcium 7.9 L (8.4-10.2) mg/dL Adrenal panel 01/06/20 Range/Units 08:15 Sodium 137 (137-145) mmol/L Potassium 3.6 (3.5-5.1) mmol/L Chloride 108 H (98-107) mmol/L Carbon Dioxide 20 L (22-30) mmol/L BUN 34 H (7-17) mg/dL Creatinine 2.40 H (0.52-1.04) mg/dL Glucose 108 H (74-99) mg/dL Calcium 7.9 L (8.4-10.2) mg/dL
--- NOTE | 2020-01-06 14:34 | CDI ---
Documentation Clarification Form Date: 01/06/2020 01:25:29 PM From: Ines Carter RN CCDS Admit Date: 01/05/2020 01:18:00 PM Patient Name: Nafisa Santiago Visit Number: [id number] Discharge Date: ATTENTION: The Clinical Documentation Specialists (CDI) and [facility] Coding Staff appreciate your assistance in clarifying documentation. Please respond to the clarification below the line at the bottom and electronically sign. The CDI & [facility] Coding staff will review the response and follow-up if needed. Please note: Queries are made part of the Legal Health Record. If you have any questions, please contact the author of this message via ITS. Dr. Jose Weiss The patient is described as frail appearing in the H & P 01/04 History/Risk Factors: 69- year -old female presents to the ED with weakness for ten days with left lower quadrant abdominal pain. Medical History CKD3, Diverticulitis, HTN, CAD, PVD, Anemia of chronic disease and chronic back pain Clinical Indicators: Patient reports weight loss, weakness, poor appetite and anorexia. Found in H&P 01/04 Current BMI: 13.1kg/m 09/29/19 Nutritional Assessment BMI: 14.7kg/m Treatment: 01/05 Dietary Consult: Clinical Weight: Underweight, Nutritional Goals Weight gain meeting 75% of estimated nutritional needs, Food /Nutrient Delivery: General/healthful diet; patient requesting chicken noodle soup and tuna salad w/ crackers with lunch and dinner. Supplements: Ensure Plus butter pecan flavor (350kcal, 13g Protein) Monitor Supplement intake and PO In your professional opinion, can you please clarify if these findings signify one of the following conditions? Moderate Protein-Calorie Malnutrition Severe Protein-Calorie Malnutrition Other condition, please specify Unable to determine Documented in progress note 01/09 Severe protein calorie malnutrition By Dr. Weiss (Last Revision: February 2019) [facility]
[2020-01-06] MEDS: metroNIDAZOLE 500 MG TAB PO SCH ×2 (15:10→23:15)
[2020-01-06] MEDS ORDERED: LEVOFLOXACIN 250 MG TAB PO SCH (16:00)
[2020-01-06] MEDS ORDERED: LEVOFLOXACIN 500MG-D5W PMX 500 MG in DEXTROSE/WATER 1 100ML.BAG IVPB SCH (16:00)
[2020-01-06] MEDS: PRAMIPEXOLE 0.125 MG TAB PO SCH (20:32)
[2020-01-06] MEDS: amLODIPine 5 MG TAB PO SCH (20:32)
[2020-01-06] MEDS: ALPRAZolam 1 MG TAB PO PRN (21:59)
[2020-01-07] MEDS: LEVOTHYROXINE 50 MCG TAB PO SCH (03:28)
[2020-01-07] MEDS: oxyCODONE-APAP 5-325MG 1 EACH TAB PO PRN ×2 (05:45→15:52)
[2020-01-07] MEDS: ASPIRIN 81 MG PO SCH (07:20)
[2020-01-07] MEDS: APIXABAN 2.5 MG TABLET PO SCH ×2 (07:20→21:38)
[2020-01-07] MEDS: FAMOTIDINE 20 MG TAB PO SCH (07:20)
[2020-01-07] MEDS: metroNIDAZOLE 500 MG TAB PO SCH ×2 (07:20→15:48)
[2020-01-07] MEDS: NEBIVOLOL 5 MG TAB PO SCH ×2 (07:20→21:38)
[2020-01-07] MEDS: IPRATROPIUM 0.5 MG/2.5 ML NEBU INHALATION SCH ×4 (08:26→20:08)
--- NOTE | 2020-01-07 08:49 | US ---
EXAMINATION TYPE: US abdomen limited DATE OF EXAM: 01/07/2020 COMPARISON: CT 01/05/2020 CLINICAL HISTORY: GB evaluation. Abdominal pain EXAM MEASUREMENTS: Liver Length: 13.1 cm Gallbladder Wall: 0.1 cm CBD: 1.0 cm Right Kidney: 9.3 x 3.5 x 5.2 cm Pancreas: Tail obscured by overlying bowel gas Liver: wnl Gallbladder: No stones visualized Evidence for sonographic Sykes's sign: No CBD: Dilated, distal portion obscured by bowel gas Right Kidney: No hydronephrosis or masses seen IMPRESSION: 1. Dilated common bile duct at 1.0 cm. Normal at this age is 0.7 cm. 2. Right upper quadrant ultrasound is otherwise unremarkable.
[2020-01-07 09:44] LABS: Anisocytosis Slight; HCT 32.6 % (34.0-46.0); HGB 10.2 gm/dL (11.4-16.0); Hypochromasia Marked; MCH 28.1 pg (25.0-35.0); MCHC 31.3 g/dL (31.0-37.0); MCV 89.7 fL (80.0-100.0); Mean Platelet Volume 8.1; Platelet Count 204 k/uL (150-450); RBC 3.64 m/uL (3.80-5.40)
[2020-01-07 09:53] LABS: Albumin 2.7 g/dL (3.5-5.0); Calcium 8.1 mg/dL (8.4-10.2); Potassium 3.2 mmol/L (3.5-5.1); Total Bilirubin 0.3 mg/dL (0.2-1.3); Total Protein 5.6 g/dL (6.3-8.2)
[2020-01-07] MEDS ORDERED: Potassium Replacement Protocol 1 EACH MISC MISCELLANE PRN (10:13)
[2020-01-07] MEDS ORDERED: POTASSIUM CHLORIDE ER 20 MEQ TAB.ER PO SCH ×2 (10:18→11:00)
[2020-01-07] MEDS: SODIUM CHLORIDE 0.9% 1,000 ML IV SCH ×2 (10:32→19:36)
[2020-01-07] MEDS ORDERED: MAGNESIUM SULFATE-D5W PMX 1 GM in DEXTROSE/WATER 1 100ML.BAG IVPB ONE (10:42)
[2020-01-07] MEDS ORDERED: SODIUM CHLORIDE 0.9% 1,000 ML IV SCH (10:45)
[2020-01-07] MEDS: POTASSIUM CHLORIDE ER 20 MEQ TAB.ER PO SCH ×5 (10:53→21:38)
--- NOTE | 2020-01-07 12:03 | P.PN ---
Subjective Progress Note Date: 01/07/20 This is a 68-year-old female one of Dr. Colbert patient with past medical history of hepatitis C post the Harvoni therapy, history of CAD with non-ST elevated myocardial infarction in April 2017 status post heart catheterization and stenting of the RCA with heavily calcified right and left coronary systems and recommendations to maximize medical treatment, COPD, asthma, chronic hypoxic respiratory failure on home O2 at 3 L nasal cannula, previous history of DVT along with Takosubu syndrome, GI bleed (April 2016), chronic kidney disease III, multiple admissions for failure to thrive and chronic abdominal pain. 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 Islas at that time. History of carotid stenosis and aortic aneurysm followed by Dr. Costa. Patient complains of weakness for 10 days and gradually worsening. Weakness is continued to worsen she is unable to get out of bed or ambulate with a walker. Patient complains of nausea. She complains of pain in her abdomen and her lower back area. No diarrhea. Abdominal pain is in the left lower quadrant. Patient was afebrile, heart rate 75, blood pressure 140/82, pulse ox 90% on room air. Hemoglobin 10.9, WBC 7.9, platelet count 261. Sodium 133, potassium 2.9, chloride 101, CO2 24, BUN 35 and creatinine 2.85, blood sugar 131. Liver function tests within normal limits. Lactic acid 1.7. CAT scan of the abdomen and pelvis without contrast revealed dilated common bile duct. Correlate with lab values and HIDA scan if concern for acute cholecystitis. Ultrasound is unlikely to be beneficial due to adjacent bowel loops. Moderate degree of colonic fecal stasis and feelings dilated fluid-filled small bowel in the right abdomen. Findings favor ileus. Avascular necrosis of the hips. Patient received a dose of ceftriaxone and Flagyl, 1 L of IV fluids. Patient admitted to the MedSurg floor and consult requested with cardiology for prolonged QT. Coronavirus testing in process. Patient is currently smoking half a pack per day. She utilizes oxygen at bedtime only. She has nebulizer. 01/05: The patient has been seen by bobbin winder for QT prolongation. The most likely due to hypokalemia and okay to continue Levaquin and hold Cymbalta for 48 hours. We will plan to add in general surgery and patient would like Dr. Milligan. Ultrasound of the abdomen to evaluate cholecystitis added. Patient continues to have abdominal pain which is in the left lower quadrant at this time. Patient is been afebrile, heart rate 74, blood pressure 121/50, pulse ox 99% on room air. Repeat WBC 8, hemoglobin 9.7, BUN 34 and creatinine 2.4. 01/06: Abdominal ultrasound revealed dilated common bile duct at 1 cm. Right upper quadrant ultrasound otherwise unremarkable. Patient has been seen by g eneral surgery and magnesium citrate was ordered. Today patient's abdominal pain is improved. She did have magnesium citrate yesterday and had diarrhea during the night. Patient has been afebrile, heart rate 58, blood pressure 155/72 and pulse ox 97% on room air. Overall, abdominal pain seems to be improving. Discussed patient's chronic weight loss and malnutrition. No underlying cause has been identified. Remeron will be added and consult with Dr. Nielsen. Objective - Vital Signs Vital signs: Vital Signs Temp 98.4 F 01/07/20 01:30 Pulse 58 L 01/07/20 01:30 Resp 20 01/07/20 01:30 BP 155/72 01/07/20 01:30 Pulse Ox 97 01/07/20 01:30 Intake & Output 01/06/20 01/07/20 01/07/20 18:59 06:59 18:59 Intake Total 150 Balance 150 Weight 33.566 kg Intake: Intake, IV Titration 150 Amount Sodium Chloride 0.9% 1, 150 000 ml @ 50 mls/hr IV . Q20H [facility] Rx#:[id number] Other: Voiding Method Toilet Toilet # Voids 1 4 # Bowel Movements 4 - Exam Review of Systems Constitutional: Reports anorexia, Reports fatigue, Reports lethargy, Reports malaise, Reports poor appetite, Reports weakness, Reports weight loss, Denies chills, Denies fever Ears, nose, mouth and throat: Denies dysphagia, Denies headache, Denies nasal congestion, Denies nasal discharge, Denies sore throat, Denies vertigo Cardiovascular: Denies chest pain, Denies decreased exercise tolerance, Denies dyspnea on exertion, Denies edema, Denies leg edema, Denies lightheadedness, Denies shortness of breath, Denies syncope Respiratory: Denies cough, Denies cough with sputum, Denies dyspnea, Denies excessive sputum, Denies hemoptysis, Denies home oxygen, Denies respiratory infections, Denies wheezing Gastrointestinal: Reports abdominal pain, denies nausea, Denies constipation, Denies diarrhea, Denies loss of appetite, Denies vomiting Genitourinary: Denies dysuria, Denies hematuria, Denies urgency, Denies urinary frequency Menstruation: Reports postmenopausal Musculoskeletal: Reports gait dysfunction, Reports muscle weakness, Denies frequent falls, Denies myalgias Integumentary: Denies pruritus, Denies rash, Denies wounds Neurological: Denies change in mentation, Denies change in speech, Denies numbness, Denies seizures, Denies weakness Psychiatric: Denies anxiety, Denies depression Endocrine: Denies fatigue, Denies weight change Physical Examination: - Constitutional General appearance: cooperative, in no acute distress, frail appearing - EENT Eyes: anicteric sclerae, PERRLA, normal appearance ENT: hearing grossly normal NG tube with bile-colored return. - Neck Neck: no lymphadenopathy, normal ROM, no other, no rigidity, no stridor, no thyromegaly - Respiratory Respiratory: bilateral: CTA, negative: diminished, dullness, rales, rhonchi - Cardiovascular Rhythm: regular Heart sounds: normal: S1, S2 Abnormal Heart Sounds: no systolic murmur, no diastolic murmur, no rub, no S3 Gallop, no S4 Gallop, no click, no other - Gastrointestinal General gastrointestinal: normal bowel sounds, soft, very mild generalized tenderness. - Integumentary Integumentary: no rash - Neurologic Neurologic: CNII-XII intact - Musculoskeletal Musculoskeletal: gait normal, strength equal bilaterally - Psychiatric Psychiatric: A&O x's 3, appropriate affect - Labs CBC & Chem 7: 01/07/20 09:11 01/07/20 09:11 Labs: Abnormal Lab Results - Last 24 Hours (Table) 01/06/20 01/06/20 Range/Units 08:15 08:15 RBC 3.60 L (3.80-5.40) m/uL Hgb 9.7 L (11.4-16.0) gm/dL Hct 31.9 L (34.0-46.0) % MCHC 30.3 L (31.0-37.0) g/dL RDW 15.8 H (11.5-15.5) % Chloride 108 H (98-107) mmol/L Carbon Dioxide 20 L (22-30) mmol/L BUN 34 H (7-17) mg/dL Creatinine 2.40 H (0.52-1.04) mg/dL Glucose 108 H (74-99) mg/dL Calcium 7.9 L (8.4-10.2) mg/dL Assessment and Plan Plan: 1. Acute kidney injury with chronic kidney disease stage III. Avoid nephrotoxic agents, nonsteroidal anti-inflammatory. Continue IV fluids at 70 mL/h, recheck electrolytes and renal function in the morning. 2. Electrolyte abnormalities with hyponatremia and hypokalemia. Patient is status post potassium replacement, continue IV fluids. Recheck electrolytes. 3. Acute diverticulitis. Continue IV antibiotics with Levaquin and Flagyl. 4. QT prolongation secondary to hypokalemia. Consult with cardiology appreciated. Okay to continue Levaquin. Cymbalta on hold for 48 hours. Plan to recheck EKG today. 5. Hypertension and hypertensive cardiovascular disease. Continue amlodipine 5 mg daily, Bystolic 5 mg twice daily. 6. Peripheral vascular disease with history of left common iliac artery stent graft with focal aneurysm 3.2 cm severe stenosis beyond aneurysm, right common iliac artery 2.6 cm with modest focal stenosis just beyond. Palpable aneurysm in the left lower quadrant, nontender to palpate. 7. Bilateral avascular necrosis bilateral femoral seen by Dr. Whipple orthopedic surgeon no intervention needed 8. History of Viridans strep bacteremia secondary to endovascular infection. 9. Chronic back pain. 10. Chronic anemia of chronic disease. Hemoglobin stable 11. Paroxysmal atrial fibrillation. Continue eliquis and Byistolic. 12. Hep C S/P Harvoni therapy. 13. Hyperlipidemia. Patient was unable to tolerate Lipitor. 14. Abdominal aortic aneurysm S/P endovascular stent. 15. Chronic tobacco use and dependence. Smoking cessation. Patient is currently smoking half a pack per day. 16. Migraine Headache. Patient normally on Topamax 50 mg orally twice every day as well as Fioricet half a pill every 4 hours as needed. 17. Restless leg syndrome. Continue Mirapex 0.125 mg orally at bedtime. 18. Obstructive sleep apnea. Stable. 19. Generalized anxiety disorder with panic disorder Depression, recurrent. Cymbalta 60 mg twice daily and Xanax 1 mg twice daily as needed. 20. Overactive bladder. Hold toviaz. 21. DVT prophylaxis. Eliquis. 22. GI prophylaxis. Pepcid. 23. Severe protein calorie malnutrition. Continue diet, supplementation. Consult Dr. Nielsen. Remeron 7.5 mg at bedtime. Discharge plan: Home with VNA. Impression and plan of care have been directed as dictated by the signing physician. Coby Joaquin nurse practitioner acting as scribe for signing physician.
--- NOTE | 2020-01-07 12:35 | PN ---
PROGRESS NOTE This is a 69-year-old lady who came in with dehydration, not having much oral intake and had what seems to be some prerenal azotemia that is improving slowly. Her LV systolic function is normal. She has history of previous PCI and no evidence of any ischemia on this hospitalization. She also had hypokalemia and hypomagnesemia which precipitated her QT prolongation which has now resolved. I reviewed the EKG from yesterday and today. QT prolongation has resolved. We can resume Cymbalta at 30 mg b.i.d. Her potassium is still low at 3.2. I am recommending that we give 60 mEq total of potassium orally and also a mg of magnesium IV piggyback and recheck the electrolytes and magnesium this evening and tomorrow morning. Vital signs are stable, no JVD, S1-S2 heard normally, ejection systolic murmur is heard at the base with preserved second heart sound. Lungs are clear. Abdomen and lower extremity exam is unchanged. PLAN: To continue hydration. Her LV function is well preserved. Till tomorrow, we will hydrate her, check the BMP and magnesium level. Increase activity and also increase oral intake to improve her nutrition. Will do an EKG, electrolytes, magnesium level tomorrow and if she is stable, at that point, we will discontinue followup from a cardiac standpoint. I discussed my thoughts in detail with the patient. MMMIGUEL AL / IJN: [id number] /
--- NOTE | 2020-01-07 12:56 | P.PN ---
Subjective Progress Note Date: 01/07/20 CHIEF COMPLAINT: Gallbladder disease, diverticulitis HISTORY OF PRESENT ILLNESS: Patient examined at the bedside. She reports improvement in abdominal pain. Reports a bowel movement yesterday. Tolerating diet. PHYSICAL EXAM: VITAL SIGNS: Reviewed. GENERAL: Well-developed in no acute distress. HEENT: No sclera icterus. Extraocular movements grossly intact. Moist buccal mucosa. Head is atraumatic, normocephalic. ABDOMEN: Soft. Nondistended. Mild diffuse tenderness NEUROLOGIC: Alert and oriented. Cranial nerves II through XII grossly intact. ASSESSMENT: 1. Abdominal pain 2. Possible mild colitis transverse colon 3. Dilated common bile duct in a patient with history of laparoscopic cholecystectomy, 2018 4. Fecal stasis PLAN: -Continue diet as tolerated -Continue IV antibiotics -No surgical intervention recommended Nurse practitioner note has been reviewed by physician. Signing provider agrees with the documented findings, assessment, and plan of care. Objective - Vital Signs Vital signs: Vital Signs Temp 98.2 F 01/07/20 06:57 Pulse 57 L 01/07/20 06:57 Resp 16 01/07/20 06:57 BP 141/55 01/07/20 06:57 Pulse Ox 94 L 01/07/20 06:57 Intake & Output 01/06/20 01/07/20 01/07/20 18:59 06:59 18:59 Intake Total 150 300 Balance 150 300 Weight 33.566 kg Intake: Intake, IV Titration 150 300 Amount Magnesium Sulfate-D5w Pmx 100 1 gm In Dextrose/Water 1 100ml.bag @ 100 mls/hr IVPB ONCE ONE Rx#: [id number] Sodium Chloride 0.9% 1, 150 200 000 ml @ 50 mls/hr IV . Q20H [facility] Rx#:[id number] Other: Voiding Method Toilet Toilet # Voids 1 4 2 # Bowel Movements 4 - Labs CBC & Chem 7: 01/07/20 09:11 01/07/20 09:11 Labs: Abnormal Lab Results - Last 24 Hours (Table) 01/07/20 01/07/20 Range/Units 09:11 09:11 RBC 3.64 L (3.80-5.40) m/uL Hgb 10.2 L (11.4-16.0) gm/dL Hct 32.6 L (34.0-46.0) % RDW 16.0 H (11.5-15.5) % Potassium 3.2 L (3.5-5.1) mmol/L Chloride 109 H (98-107) mmol/L Carbon Dioxide 20 L (22-30) mmol/L BUN 29 H (7-17) mg/dL Creatinine 2.28 H (0.52-1.04) mg/dL Calcium 8.1 L (8.4-10.2) mg/dL Total Protein 5.6 L (6.3-8.2) g/dL Albumin 2.7 L (3.5-5.0) g/dL
--- NOTE | 2020-01-07 13:27 | XR ---
EXAMINATION TYPE: XR chest 2V DATE OF EXAM: 01/07/2020 COMPARISON: 06/18/2019 INDICATION: Dyspnea TECHNIQUE: Frontal and lateral views of the chest are obtained. FINDINGS: The heart size is normal. The pulmonary vasculature is normal. There is hyperinflation compatible COPD. There is flattening the diaphragms and increased AP diameter . Some increased retrosternal airspace is present.. IMPRESSION: 1. Advanced COPD.
--- NOTE | 2020-01-07 13:53 | CT ---
EXAMINATION TYPE: CT chest wo con DATE OF EXAM: 01/07/2020 COMPARISON: 02/14/2019 HISTORY: Lung Mass CT DLP: 137.4 mGycm, Automated exposure control for dose reduction was used. CONTRAST: Performed injected with 0 mL of Isovue 300. TECHNIQUE: Axial images were obtained at 5 mm thick sections. Reconstructed images are reviewed on [email or web address] computer in the coronal plane. FINDINGS: Portion of the thyroid visualized is normal. There is opacity in the posterior right apex measuring 1.3 x 3.3 cm in size. This was present previou sly may be slightly larger than the 1.1 x 2.9 cm comparison. Some mild posterior left apical thickeni ng is present. Extensive emphysematous changes are present with blebs and bulla.. Hyperinflation is present. No enlarged mediastinal or hilar adenopathy is evident. The ascending aorta diameter at the level o f the main pulmonary artery is 3.5 cm. The main pulmonary artery diameter at the bifurcation is 3.3 cm. Vascular calcification is within the aorta. Minimal coronary artery calcification is present. The re is a stent within the upper portion of the abdominal aorta within the [id number]. Limited CT sections are obtained through the upper abdomen. Abdomen is essentially unremarkable. IMPRESSIONS: 1. Posterior right apical band of thickening may have minimal increase in size. 2. Extensive emphysematous changes.
[2020-01-07] MEDS: LEVOFLOXACIN 250 MG TAB PO SCH (15:48)
[2020-01-07] MEDS ORDERED: hydrALAZINE HCL 25 MG TAB PO PRN (16:49)
[2020-01-07 17:04] LABS: Reticulocyte % 1.8 % (0.5-2.0)
--- NOTE | 2020-01-07 17:08 | P.CONS ---
<Cherie Burch - Last Filed: 01/07/20 16:49> History of Present Illness - Reason for Consult Consult date: 01/07/20 Weight loss and chronic abdominal pain Requesting physician: Coby Joaquin - Chief Complaint abdominal pain - History of Present Illness This is a 69 year old patient who originally presented with severe weakness, weight loss, and abdominal pain. CT abdomen revealed concern for fecal stasis and possible ileus. Surgery has evaluated patient. 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 Islas treated at that time), Carootid stenosis, aortic aneurysm (follows with vascular surgery Dr. Costa). She utilizes a walker at baseline and complained of worsening fatigue, wekaness unable to perform ADLs. COVID negative. A CT Chest revealed a known pulmonary nodule increase in size, weight loss, anemia, and chronic abdominal pain, therefore Medical oncology was asked to evaluate further. Review of Systems A 14 point review of systems assessed and completed and all negative except HPI Past Medical History Past Medical History: Atrial Fibrillation, Asthma, Coronary Artery Disease ( CAD), Chest Pain / Angina, COPD, Deep Vein Thrombosis (DVT), GERD/Reflux, GI Bleed, Hypertension, Liver Disease, Memory Impairment, Myocardial Infarction ([place]), Pneumonia, Respiratory Disorder, Sleep Apnea/CPAP/BIPAP, Vascular Disorder Additional Past Medical History / Comment(s): on 10/25/18 pt states was having pizza with family and food got stuck, pt had small amount of emesis. She went to bed and woke up to discover that she was incontinent of stool while she slept. Pt states that this has never happened.Patient continues to have difficulty swallowing like before. HEP C. Aortic aneurysm with stent-being monitored, Takosubu syndrome in 2016, R groin dissection/cardiac cath, recent bacteremia- blood cultures positive for veridans strep-completed antibiotics, bronchitis, home O2 at 3L/NC most of the time, LG without device-stable, DVT R leg, lower GI bleed, hepatitis C with Harvoni treatment, anemia with iron infusions x2, bilateral femoral head avascular necrosis, RLS, migraines, insomnia, constipation, overactive bladder, post menopausal bleed. Last Myocardial Infarction Date:: 07/2017 History of Any Multi-Drug Resistant Organisms: None Reported Past Surgical History: Bladder Surgery, Cholecystectomy, Heart Catheterization With Stent, Hysterectomy, Orthopedic Surgery Additional Past Surgical History / Comment(s): Gallbladder removed (2018) AAA 2006 (stent) Past Anesthesia/Blood Transfusion Reactions: No Reported Reaction Date of Last Stent Placement:: 2010 Past Psychological History: Anxiety, Depression, Panic Disorder Smoking Status: Current every day smoker Past Alcohol Use History: None Reported Additional Past Alcohol Use History / Comment(s): She was a smoker starting in 1956. Smokes approx 5-8 cig.'s per day. Quit last but started again. Past Drug Use History: None Reported - Past Family History Brother(s) Family Medical History: Coronary Artery Disease (CAD), Myocardial Infarction ([place]) Father Additional Family Medical History / Comment(s): FROM CIRRHOSIS OF THE LIVER Mother Family Medical History: COPD Additional Family Medical History / Comment(s): FROM AAA, HAD HX of TB. Medications and Allergies Home Medications Medication Instructions Recorded Confirmed Type Apixaban [Eliquis] 2.5 mg PO BID #60 tablet 03/02/19 01/05/20 Rx DULoxetine HCL [Cymbalta] 60 mg PO BID 09/28/19 01/05/20 History Fesoterodine Fumarate [Toviaz] 8 mg PO DAILY 09/28/19 01/05/20 History Pramipexole [Mirapex] 0.125 mg PO HS 09/28/19 01/05/20 History Nebivolol [Bystolic] 5 mg PO BID tab 09/30/19 01/05/20 Rx ALPRAZolam [Xanax] 1 mg PO BID PRN 01/05/20 01/05/20 History Aspirin 81 mg PO DAILY 01/05/20 01/05/20 History Dexlansoprazole [Dexilant] 60 mg PO DAILY 01/05/20 01/05/20 History Dicyclomine [Bentyl] 20 mg PO TID PRN 01/05/20 01/05/20 History Levothyroxine Sodium [Synthroid] 50 mcg PO DAILY 01/05/20 01/05/20 History Tiotropium [place] [Spiriva 8 gm INHALATION RT-BID 01/05/20 01/05/20 History Respimat] amLODIPine [Norvasc] 5 mg PO DAILY 01/05/20 01/05/20 History Allergies Allergy/AdvReac Type Severity Reaction Status Date / Time naproxen sodium [From Aleve] Allergy Severe Anaphylaxis Verified 01/05/20 13:35 adhesive Allergy Rash/Hives Verified 01/05/20 13:35 clindamycin Allergy Anaphylaxis Verified 01/05/20 13:35 gentamicin [Gentamicin] Allergy SWELLING Verified 01/05/20 13:35 OF FACE W/ EYE DROPS latex Allergy Rash/Hives Verified 01/05/20 13:35 levothyroxine sodium Allergy Unknown Verified 01/05/20 13:35 [From Synthroid] losartan Allergy Unknown Verified 01/05/20 13:35 Penicillins Allergy Rash/Hives Verified 01/05/20 13:35 Sulfa (Sulfonamide Allergy Swelling Verified 01/05/20 13:35 Antibiotics) IN MOUTH sulfamethoxazole Allergy swelling Verified 01/05/20 13:35 [From Bactrim] tongue sulfanilamide Allergy Unknown Verified 01/05/20 13:35 trimethoprim [From Bactrim] Allergy Swelling Verified 01/05/20 13:35 venom-honey bee Allergy Dyspnea Verified 01/05/20 13:35 [bee venom (honey bee)] cinnamon [Cinnamon] AdvReac Dyspnea Verified 01/05/20 13:35 codeine AdvReac Nausea & Verified 01/05/20 13:35 Vomiting paola AdvReac Dyspnea Verified 01/05/20 13:35 Iodinated Contrast Media AdvReac Dyspnea Verified 01/05/20 13:35 [Iodinated Contrast- Oral and IV Dye] montelukast sodium AdvReac Wheezing Verified 01/05/20 13:35 [From Singulair] pantoprazole sodium AdvReac Abdominal Verified 01/05/20 13:35 [From Protonix] Pain red dye AdvReac Abdominal Verified 01/05/20 13:35 Pain BANDAIDS Allergy Rash/Hives Uncoded 01/05/20 13:36 Dye for gallbladder scan. Allergy Anaphylaxis Uncoded 01/05/20 13:36 tomatoes Allergy Abdominal Uncoded 05/20/20 13:36 Pain Physical Exam Vitals: Vital Signs Temp Pulse Pulse Resp BP BP Pulse Ox 01/07/20 15:39 60 01/07/20 15:29 60 01/07/20 15:24 185/69 01/07/20 14:23 97.5 F L 64 18 185/67 183/68 99 01/07/20 06:57 98.2 F 57 L 16 141/55 94 L 01/07/20 01:30 98.4 F 58 L 20 155/72 97 01/06/20 20:10 97.8 F 62 20 142/59 95 Intake and Output 01/07/20 01/07/20 01/07/20 06:59 14:59 22:59 Intake Total 300 Balance 300 Intake: Intake, IV Titration 300 Amount Magnesium Sulfate-D5w Pmx 100 1 gm In Dextrose/Water 1 100ml.bag @ 100 mls/hr IVPB ONCE ONE Rx#: [id number] Sodium Chloride 0.9% 1, 200 000 ml @ 50 mls/hr IV . Q20H [facility] Rx#:[id number] Other: Voiding Method Toilet # Voids 4 2 Gen: Alert and oriented, Chronically ill Head: NCAT Neck: Supple Lungs: Diminished bases, no increased effort Heart: RRR Abdomen: Soft, ND, Tender diffuse Ext: No edema Mood Anxious Results CBC & Chem 7: 01/07/20 09:11 01/07/20 09:11 Labs: Abnormal Lab Results - Last 24 Hours (Table) 01/07/20 01/07/20 Range/Units 09:11 09:11 RBC 3.64 L (3.80-5.40) m/uL Hgb 10.2 L (11.4-16.0) gm/dL Hct 32.6 L (34.0-46.0) % RDW 16.0 H (11.5-15.5) % Potassium 3.2 L (3.5-5.1) mmol/L Chloride 109 H (98-107) mmol/L Carbon Dioxide 20 L (22-30) mmol/L BUN 29 H (7-17) mg/dL Creatinine 2.28 H (0.52-1.04) mg/dL Calcium 8.1 L (8.4-10.2) mg/dL Total Protein 5.6 L (6.3-8.2) g/dL Albumin 2.7 L (3.5-5.0) g/dL CT scan - abdomen: report reviewed CT scan - chest: report reviewed CT scan - pelvis: report reviewed Assessment and Plan (1) Normocytic anemia Current Visit: Yes Status: Acute Code(s): D64.9 - ANEMIA, UNSPECIFIED SNOMED Code(s): 145532802 (2) Chronic kidney disease, stage 3 Current Visit: Yes Status: Acute Code(s): N18.3 - CHRONIC KIDNEY DISEASE, STAGE 3 (MODERATE) SNOMED Code(s): 741636154 (3) Ileus Current Visit: Yes Status: Acute Code(s): K56.7 - ILEUS, UNSPECIFIED SNOMED Code(s): 248944984 (4) Acute renal failure Current Visit: No Status: Acute Code(s): N17.9 - ACUTE KIDNEY FAILURE, UNSPECIFIED SNOMED Code(s): 04692092 (5) Weakness Current Visit: No Status: Acute Code(s): R53.1 - WEAKNESS SNOMED Code(s): 80540168 (6) Weight loss Current Visit: No Status: Acute Code(s): R63.4 - ABNORMAL WEIGHT LOSS SNOMED Code(s): 91377759 Plan: Assessment and Recommendations: Normocytic Anemia: - Likely multifactorial with known CKD stage 3 (looks like steadily worsening since 04/2019), nutritional deficiencies as a likely contributing factor (underweight), chronic inflammation. - Will check Iron, B12 and erythropoetin as well as retic, LDH - Monitor CBC Increasing pulmonary Nodule: - Unknown etiology - Defer biopsy for tissue path to pulmonary Fecal Stasis/ileus: - Gen Surgery is following Hx: DVT - Continued on Eliquis Atrial Fib/CAD/RCA Stent: - Continued on Eliquis ALBERT/CKD: - Per Primary/Nephrology Teams Hx: DVT Multiple Co-Morbidities: - Per Primary Team Plan: 01/07/20: - Anemia work-up in place - Defer tissue biopsy to pulmonary as best approach considering her multiple co-morbidities and decreased performance status Thank you we will follow along with you Physician Attest: I have completed the full history and physical and agree with above dictation, dictated as a scribe. <Black Nielsen - Last Filed: 01/07/20 18:18> Physical Exam Vitals: Vital Signs Temp Pulse Pulse Resp BP BP Pulse Ox 01/07/20 16:28 184/64 01/07/20 15:39 60 01/07/20 15:29 60 01/07/20 15:24 185/69 01/07/20 14:23 97.5 F L 64 18 185/67 183/68 99 01/07/20 06:57 98.2 F 57 L 16 141/55 94 L 01/07/20 01:30 98.4 F 58 L 20 155/72 97 01/06/20 20:10 97.8 F 62 20 142/59 95 Intake and Output 01/07/20 01/07/20 01/07/20 06:59 14:59 22:59 Intake Total 300 Balance 300 Intake: Intake, IV Titration 300 Amount Magnesium Sulfate-D5w Pmx 100 1 gm In Dextrose/Water 1 100ml.bag @ 100 mls/hr IVPB ONCE ONE Rx#: [id number] Sodium Chloride 0.9% 1, 200 000 ml @ 50 mls/hr IV . Q20H [facility] Rx#:[id number] Other: Voiding Method Toilet Toilet # Voids 4 2 Results CBC & Chem 7: 01/07/20 09:11 01/07/20 16:46 Labs: Abnormal Lab Results - Last 24 Hours (Table) 01/07/20 01/07/20 01/07/20 Range/Units 09:11 09:11 16:46 RBC 3.64 L (3.80-5.40) m/uL Hgb 10.2 L (11.4-16.0) gm/dL Hct 32.6 L (34.0-46.0) % RDW 16.0 H (11.5-15.5) % Sodium 135 L (137-145) mmol/L Potassium 3.2 L 3.4 L (3.5-5.1) mmol/L Chloride 109 H 109 H (98-107) mmol/L Carbon Dioxide 20 L 20 L (22-30) mmol/L BUN 29 H 28 H (7-17) mg/dL Creatinine 2.28 H 2.16 H (0.52-1.04) mg/dL Glucose 147 H (74-99) mg/dL Calcium 8.1 L 7.7 L (8.4-10.2) mg/dL Total Protein 5.6 L (6.3-8.2) g/dL Albumin 2.7 L (3.5-5.0) g/dL Assessment and Plan Plan: as above. Patient seen and examined. Multiple labs in the EMR, as well as reports of imaging, procedure notes and physician notes reviewed. - Abdominal pain appears to be chronic. Endoscopy in 11/03 was negative but colonoscopy prep was poor . Most recent evaluation by GI indicates that a functional /psychosomatic component of her pain is suspected. Current computed tomography scan does not show any adenopathy or mass. However it was limited by lack of contrast. It did show thickening of the transverse colon as well as small bowel - significant possibility in this situation, given her history of extensive vascular disease is chronic intestinal ischemia. It would be reasonable to work this possibility of further, if workup for other causes is otherwise negative. - Check labs for anemia. If the patient is found to have specific deficiency state, then it would be reasonable to consider repeat endoscopy especially since prior colonoscopy was hampered by poor prep - Follow renal function with hydration. If creatinine improves, consider repeat imaging with contrast -the patient's computed tomography scan noted right-sided posterior lung capacity, with some increase in size. The increase in size is quite minimal. The patient's CT scans were personally reviewed. I also reviewed the reports, and images of CT scans going back to 2013. The opacity is bandlike, extending to the pleura, and was present as far back as 03/31 at least. This appears to be most consistent with an area of bandlike scarring rather than a mass. We'll also await pulmonary opinion
[2020-01-07 17:34] LABS: Calcium 7.7 mg/dL (8.4-10.2); Magnesium 2.2 mg/dL (1.6-2.3); Potassium 3.4 mmol/L (3.5-5.1)
[2020-01-07] MEDS: ALPRAZolam 1 MG TAB PO PRN (19:38)
[2020-01-07] MEDS: MIRTAZAPINE 15 MG TAB PO SCH (21:37)
[2020-01-07] MEDS: amLODIPine 5 MG TAB PO SCH (21:37)
[2020-01-07] MEDS: PRAMIPEXOLE 0.125 MG TAB PO SCH (21:38)
[2020-01-07] MEDS: DULoxetine HCL 30 MG CAPSULE.DR PO SCH (22:00)
[2020-01-08] MEDS: metroNIDAZOLE 500 MG TAB PO SCH ×4 (00:05→23:18)
[2020-01-08] MEDS: LEVOTHYROXINE 50 MCG TAB PO SCH (06:02)
[2020-01-08] MEDS: IPRATROPIUM 0.5 MG/2.5 ML NEBU INHALATION SCH ×4 (07:16→19:45)
[2020-01-08 07:55] LABS: Anisocytosis Slight; Basophils % (A) 0 %; Eosinophils # (A) 0.4 k/uL (0-0.7); Eosinophils % (A) 6 %; HCT 33.2 % (34.0-46.0); Hypochromasia Moderate; Lymphocytes # (A) 1.3 k/uL (1.0-4.8); Lymphocytes % (A) 20 %; MCH 26.7 pg (25.0-35.0); MCHC 30.2 g/dL (31.0-37.0); MCV 88.2 fL (80.0-100.0); Monocytes # (A) 0.4 k/uL (0-1.0); Monocytes % (A) 6 %; Neutrophils # (A) 4.3 k/uL (1.3-7.7); Neutrophils % (A) 66 %; Platelet Count 201 k/uL (150-450); RBC 3.76 m/uL (3.80-5.40); RDW 16.3 % (11.5-15.5); WBC 6.6 k/uL (3.8-10.6)
[2020-01-08 08:11] LABS: Albumin 2.5 g/dL (3.5-5.0); Potassium 4.1 mmol/L (3.5-5.1); Total Bilirubin 0.2 mg/dL (0.2-1.3); Total Protein 5.4 g/dL (6.3-8.2)
--- NOTE | 2020-01-08 08:37 | PN ---
PROGRESS NOTE This morning, this patient is doing very well. Has no chest pain or shortness of breath. Her diarrhea has resolved. She is actually feeling better and stronger. Her potassium has come up to 4.5 yesterday night. This morning's labs are pending. EKG revealed sinus mechanism, normal QT, leftward axis, no acute changes. Blood pressure is slightly elevated. I am adding hydralazine 25 mg b.i.d . We will increase activity, cut down the fluids to 50 mL/hour. Creatinine has improved also remarkably. I would recommend that we increase activity and plan for discharge from a cardiac standpoint. Cymbalta has been resumed at 30 mg b.i.d. Blood pressure is 160/70, pulse rate is about 70 per minute. No JVD S1-S2 heard normally. Short systolic murmur at the base is audible. 2nd heart sound is preserved. Lungs are clear. Abdomen is soft. Lower extremities reveal diminished pulses. Central nervous system grossly no focal deficits. From a cardiac standpoint, I believe she is stable enough to be discharged. She can follow up with us in 2 weeks and I will see her as needed during the hospitalization. MMODL / IJN: [id number] / PIPER
[2020-01-08] MEDS: FAMOTIDINE 20 MG TAB PO SCH (08:57)
[2020-01-08] MEDS: APIXABAN 2.5 MG TABLET PO SCH ×2 (08:57→20:09)
[2020-01-08] MEDS: hydrALAZINE HCL 25 MG TAB PO SCH ×2 (08:57→20:12)
[2020-01-08] MEDS: NEBIVOLOL 5 MG TAB PO SCH ×2 (08:57→20:20)
[2020-01-08] MEDS: DULoxetine HCL 30 MG CAPSULE.DR PO SCH ×2 (08:58→20:11)
[2020-01-08 10:02] LABS: Free Kappa Lt Chain Qnt, Serum 8.68 mg/dL (0.33-1.94)
--- NOTE | 2020-01-08 10:27 | P.PN ---
Progress Note - Text Progress Note Date: 01/08/20 Patient's resting comfortably rebound. She is tolerating her diet. She denies any significant abdominal pain. On exam her vital signs are stable. Her abdomen soft. I do not think that the patient's 10 mm common bile duct is significant. It appears that her colitis has resolved that was initially seen on her admitting CAT scan. Patient will be discharged home per the medical service when stable.
[2020-01-08 10:29] LABS: Protein, Total 4.8 g/dL (6.2-8.2)
[2020-01-08 10:38] LABS: Ferritin 21.5 ng/mL (10.0-291.0)
[2020-01-08 11:29] LABS: % Iron Saturation 8.93 (12.00-45.00)
--- NOTE | 2020-01-08 14:18 | XR ---
EXAMINATION TYPE: XR chest 2V DATE OF EXAM: 01/08/2020 COMPARISON: Prior chest x-ray 01/07/2020 HISTORY: Shortness of breath TECHNIQUE: Frontal and lateral views of the chest are obtained. FINDINGS: There is no focal air space opacity, pleural effusion, or pneumothorax seen. The cardiac silhouette size is within normal limits. Prominent lung volume may be indicative of underlying COPD . Postop changes again noted in the lower cervical spine. There are overlying cardiac leads and the p atient is rotated. Bone mineralization is reduced. There is an underlying kyphosis. Coronary artery c alcifications are present. Aorta is dense and aneurysmal. The osseous structures are intact. IMPRESSION: No acute cardiopulmonary process. Marked emphysema.
--- NOTE | 2020-01-08 14:18 | P.PN ---
Subjective Progress Note Date: 01/08/20 Principal diagnosis: Acute kidney injury, elixir slight abnormality, acute diverticulitis, QT prolongation, significant weight loss, history of very day and the strep bacteremia from endovascular infection, lower back pain, A. fib with RVR, history of hep C, abdominal aortic aneurysm post endovascular stent, restless leg syndrome, generalized anxiety, pulmonary nodular with possible mass, advanced COPD and atherosclerotic heart disease. This is a 68-year-old female one of Dr. Colbert patient with past medical history of hepatitis C post the Harvoni therapy, history of CAD with non-ST elevated myocardial infarction in April 2017 status post heart catheterization and stenting of the RCA with heavily calcified right and left coronary systems and recommendations to maximize medical treatment, COPD, asthma, chronic hypoxic respiratory failure on home O2 at 3 L nasal cannula, previous history of DVT along with Takosubu syndrome, GI bleed (April 2016), chronic kidney disease III, multiple admissions for failure to thrive and chronic abdominal pain. 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 Islas at that time. History of carotid stenosis and aortic aneurysm followed by Dr. Costa. Patient complains of weakness for 10 days and gradually worsening. Weakness is continued to worsen she is unable to get out of bed or ambulate with a walker. Patient complains of nausea. She complains of pain in her abdomen and her lower back area. No diarrhea. Abdominal pain is in the left lower quadrant. Patient was afebrile, heart rate 75, blood pressure 140/82, pulse ox 90% on room air. Hemoglobin 10.9, WBC 7.9, platelet count 261. Sodium 133, potassium 2.9, chloride 101, CO2 24, BUN 35 and creatinine 2.85, blood sugar 131. Liver function tests within normal limits. Lactic acid 1.7. CAT scan of the abdomen and pelvis without contrast revealed dilated common bile duct. Correlate with lab values and HIDA scan if concern for acute cholecystitis. Ultrasound is unlikely to be beneficial due to adjacent bowel loops. Moderate degree of colonic fecal stasis and feelings dilated fluid-filled small bowel in the right abdomen. Findings favor ileus. Avascular necrosis of the hips. Patient received a dose of ceftriaxone and Flagyl, 1 L of IV fluids. Patient admitted to the [facility] floor and consult requested with cardiology for prolonged QT. Coronavirus testing in process. Patient is currently smoking half a pack per day. She utilizes oxygen at bedtime only. She has nebulizer. 01/05: The patient has been seen by recenterer for QT prolongation. The most likely due to hypokalemia and okay to continue Levaquin and hold Cymbalta for 48 hours. We will plan to add in general surgery and patient would like Dr. Milligan. Ultrasound of the abdomen to evaluate cholecystitis added. Patient continues to have abdominal pain which is in the left lower quadrant at this time. Patient is been afebrile, heart rate 74, blood pressure 121/50, pulse ox 99% on room air. Repeat WBC 8, hemoglobin 9.7, BUN 34 and creatinine 2.4. 01/06: Abdominal ultrasound revealed dilated common bile duct at 1 cm. Right upper quadrant ultrasound otherwise unremarkable. Patient has been seen by general surgery and magnesium citrate was ordered. Today patient's abdominal pain is improved. She did have magnesium citrate yesterday and had diarrhea during the night. Patient has been afebrile, heart rate 58, blood pressure 15 /72 and pulse ox 97% on room air. Overall, abdominal pain seems to be improving. Discussed patient's chronic weight loss and malnutrition. No underlying cause has been identified. Remeron will be added and consult with Dr. Nielsen. 01/07: Patient was seen general surgery no finding consistent with any intervention, also continue to have significant weight loss was seen oncology review all her testing there is a small nodular and along once to investigate further by pulmonary for possible bronchoscopy and biopsy also gastrointestinal finding with testing might be a possibility but colonoscopy was done not too long ago. In the meanwhile her acute kidney injury and electrolyte imbalance are a lot better at this point. We'll consult pulmonary if no intervention required patient might be able to go home tomorrow day after tomorrow continue titrate nutrition and supportive care, patient still and bleeding with the use of walker but refuses going to rehab. Objective - Vital Signs Vital signs: Vital Signs Temp 98.4 F 01/08/20 07:00 Pulse 68 01/08/20 10:58 Resp 16 01/08/20 07:00 BP 176/72 01/08/20 07:00 Pulse Ox 100 01/08/20 07:00 Intake & Output 05/01/08/20 01/08/20 18:59 06:59 18:59 Intake Total 300 60 Balance 300 60 Intake: Intake, IV Titration 300 Amount Magnesium Sulfate-D5w Pmx 100 1 gm In Dextrose/Water 1 100ml.bag @ 100 mls/hr IVPB ONCE ONE Rx#: [id number] Sodium Chloride 0.9% 1, 200 000 ml @ 50 mls/hr IV . Q20H [facility] Rx#:[id number] Oral 60 Other: Voiding Method Toilet Toilet # Voids 2 1 # Bowel Movements 1 - Exam Review of Systems Constitutional: Reports anorexia, Reports fatigue, Reports lethargy, Reports malaise, Reports poor appetite, Reports weakness, Reports weight loss, Denies chills, Denies fever Ears, nose, mouth and throat: Denies dysphagia, Denies headache, Denies nasal congestion, Denies nasal discharge, Denies sore throat, Denies vertigo Cardiovascular: Denies chest pain, Denies decreased exercise tolerance, Denies dyspnea on exertion, Denies edema, Denies leg edema, Denies lightheadedness, Denies shortness of breath, Denies syncope Respiratory: Denies cough, Denies cough with sputum, Denies dyspnea, Denies excessive sputum, Denies hemoptysis, Denies home oxygen, Denies respiratory infections, Denies wheezing Gastrointestinal: Reports abdominal pain, denies nausea, Denies constipation, Denies diarrhea, Denies loss of appetite, Denies vomiting Genitourinary: Denies dysuria, Denies hematuria, Denies urgency, Denies urinary frequency Menstruation: Reports postmenopausal Musculoskeletal: Reports gait dysfunction, Reports muscle weakness, Denies frequent falls, Denies myalgias Integumentary: Denies pruritus, Denies rash, Denies wounds Neurological: Denies change in mentation, Denies change in speech, Denies numbness, Denies seizures, Denies weakness Psychiatric: Denies anxiety, Denies depression Endocrine: Denies fatigue, Denies weight change Physical Examination: - Constitutional General appearance: cooperative, in no acute distress, frail appearing - EENT Eyes: anicteric sclerae, PERRLA, normal appearance ENT: hearing grossly normal NG tube with bile-colored return. - Neck Neck: no lymphadenopathy, normal ROM, no other, no rigidity, no stridor, no thyromegaly - Respiratory Respiratory: bilateral: CTA, negative: diminished, dullness, rales, rhonchi - Cardiovascular Rhythm: regular Heart sounds: normal: S1, S2 Abnormal Heart Sounds: no systolic murmur, no diastolic murmur, no rub, no S3 Gallop, no S4 Gallop, no click, no other - Gastrointestinal General gastrointestinal: normal bowel sounds, soft, very mild generalized tenderness. - Integumentary Integumentary: no rash - Neurologic Neurologic: CNII-XII intact - Musculoskeletal Musculoskeletal: gait normal, strength equal bilaterally - Psychiatric Psychiatric: A&O x's 3, appropriate affect - Labs CBC & Chem 7: 01/08/20 07:35 01/08/20 07:35 Labs: Abnormal Lab Results - Last 24 Hours (Table) 01/07/20 01/07/20 01/07/20 Range/Units 16:46 16:46 16:47 RBC (3.80-5.40) m/uL Hgb (11.4-16.0) gm/dL Hct (34.0-46.0) % MCHC (31.0-37.0) g/dL RDW (11.5-15.5) % ESR 43 H (0-20) mm/hr Sodium 135 L (137-145) mmol/L Potassium 3.4 L (3.5-5.1) mmol/L Chloride 109 H (98-107) mmol/L Carbon Dioxide 20 L (22-30) mmol/L BUN 28 H (7-17) mg/dL Creatinine 2.16 H (0.52-1.04) mg/dL Glucose 147 H (74-99) mg/dL Calcium 7.7 L (8.4-10.2) mg/dL Iron 25 L (50-170) ug/dL % Saturation 8.93 L (12.00-45.00) Total Protein (6.3-8.2) g/dL Total Protein (PEP) (6.2-8.2) g/dL Albumin (3.5-5.0) g/dL Free [place] LC, Quant 8.68 H (0.33-1.94) mg/dL Free [place] LC, Quant 4.11 H (0.57-2.63) mg/dL 05/23/20 05/23/20 05/23/20 Range/Units 07:35 07:35 07:35 RBC 3.76 L (3.80-5.40) m/uL Hgb 10.0 L (11.4-16.0) gm/dL Hct 33.2 L (34.0-46.0) % MCHC 30.2 L (31.0-37.0) g/dL RDW 16.3 H (11.5-15.5) % ESR (0-20) mm/hr Sodium (137-145) mmol/L Potassium (3.5-5.1) mmol/L Chloride 113 H (98-107) mmol/L Carbon Dioxide 21 L (22-30) mmol/L BUN 24 H (7-17) mg/dL Creatinine 1.96 H (0.52-1.04) mg/dL Glucose (74-99) mg/dL Calcium 8.0 L (8.4-10.2) mg/dL Iron (50-170) ug/dL % Saturation (12.00-45.00) Total Protein 5.4 L (6.3-8.2) g/dL Total Protein (PEP) 4.8 L (6.2-8.2) g/dL Albumin 2.5 L (3.5-5.0) g/dL Free [place] LC, Quant (0.33-1.94) mg/dL Free [place]ambda LC, Quant (0.57-2.63) mg/dL Assessment and Plan Assessment: 1 acute kidney injury: With stage III chronic kidney disease, continue hydration patient creatinine is much better so far. 2 acute diverticulitis: Remain on Levaquin and Flagyl switch medication to oral doing much better. 3 QT prolongation secondary to hypokalemia, still seen cardiology Cymbalta was held for 48 hours and Levaquin was continue patient EKG was normalized. 4 significant weight loss and possible cancer: No finding consistent with any abnormality with ultrasound and CAT scan, oncology consult was done patient might have to have biopsy from one of the lung nodular we'll consult pulmonary this point. GI study are up-to-date so far. 5 chronic history of bilateral avascular necrosis still seen Dr. Whipple orthopedic. 6 history of very dense strep bacteremia secondary to endovascular infection has improved was treated. 7 chronic history of atherosclerotic heart disease: Still seeing cardiology has been on amlodipine and diastolic no chest pain or angina. 8 chronic history of COPD: Remain on MDI inhaler. 9 chronic history of smoking with smoking cessation was addressed on nicotine patch. 10 chronic history of restless leg syndrome has been on Mirapex 0.125 g at the time. 11 severe protein calorie malnutrition continue diet continue dietitian rec ommendation and remain on Remeron. 12 debility: Continue PTOT patient can benefit from rehab she had refused at this point. CODE STATUS: Full code. Discharge planning: Possible home in 48 hours.
--- NOTE | 2020-01-08 14:21 | P.CNPUL ---
History of Present Illness Consult date: 01/08/20 Requesting physician: Jose Weiss Reason for consult: abnormal CXR/CT Chief complaint: Abdominal pain, back pain History of present illness: This is a very pleasant 69-year-old female patient who follows with Dr. Colbert as her primary care provider. She has a history of coronary artery disease with previous stent placement to the RCA, Tako Subu syndrome, hepatitis C status post Harvoni therapy, GI bleed, chronic kidney disease stage III, chronic abdominal pain, failure to thrive with malnutrition, aortic aneurysm graft and stent complicated by strep viridans bacteremia, carotid stenosis, avascular necrosis of the bilateral hips, chronic obstructive pulmonary disease with FEV1 value 85% of predicted in 2017. Chronic and ongoing tobacco dependence. She was last seen by Dr. Petersen in our office in 2017. She presented here to the emergency room on 01/05/2020 with a ten-day history of progressive weakness. She was even having difficulty getting out of bed and ambulating with her walker. She was having abdominal discomfort. Computed tomography scan of the abdomen revealed dilated, mild duct with possibly acute cholecystitis, moderate degree of colonic fecal stasis and dilated loops of the small bowel favoring ileus. A computed tomography scan of the chest revealed a posterior right apical band of thickening that was slightly increased in size compared to January 2019. There is extensive emphysematous changes as well. We are consulted for the same. She is seen today in consultation on the regular medical floor. She is awake and alert in no acute distress. Currently resting comfortably in bed. No worsening shortness of breath, cough or congestion. She is maintaining O2 saturations up to 100% on room air. She's been afebrile. White count 6.6. Hemoglobin 10.0. Sodium 139. Potassium 4.1. Creatinine 1.96. Review of Systems REVIEW OF SYSTEMS: CONSTITUTIONAL: Significant and progressive weakness. Positive for recent weight loss of 10 pounds. EYES: Denies change in vision. EARS, NOSE, MOUTH, THROAT: Denies headaches, denies sore throat. CARDIOVASCULAR: Denies chest pain, palpitations or syncopal episodes. RESPIRATORY: Denies shortness of breath, cough, congestion or hemoptysis. GASTROINTESTINAL: Positive abdominal discomfort and abdominal pain GENITOURINARY: Denies hematuria, denies infections. MUSKULOSKELETAL: Positive for back pain INTEGUMENTARY: Denies rash, denies eczema. NEUROLOGICAL: Denies recent memory loss, no recent seizure activity. PSYCHIATRIC: Denies anxiety, denies depression. HEMATOLOGIC/LYMPHATIC: Denies anemia, denies enlarged lymph nodes. Past Medical History Past Medical History: Atrial Fibrillation, Asthma, Coronary Artery Disease (CAD), Chest Pain / Angina, COPD, Deep Vein Thrombosis (DVT), GERD/Reflux, GI Bleed, Hypertension, Liver Disease, Memory Impairment, Myocardial Infarction ([place]), Pneumonia, Respiratory Disorder, Sleep Apnea/CPAP/BIPAP, Vascular Disorder Additional Past Medical History / Comment(s): on 10/25/18 pt states was having pizza with family and food got stuck, pt had small amount of emesis. She went to bed and woke up to discover that she was incontinent of stool while she slept. Pt states that this has never happened.Patient continues to have difficulty swallowing like before. HEP C. Aortic aneurysm with stent-being monitored, Takosubu syndrome in 2016, R groin dissection/cardiac cath, recent bacteremia- blood cultures positive for veridans strep-completed antibiotics, bronchitis, home O2 at 3L/NC most of the time, LG without device-stable, DVT R leg, lower GI bleed, hepatitis C with Harvoni treatment, anemia with iron infusions x2, bilateral femoral head avascular necrosis, RLS, migraines, insomnia, constipation, overactive bladder, post menopausal bleed. Last Myocardial Infarction Date:: 07/2017 History of Any Multi-Drug Resistant Organisms: None Reported Past Surgical History: Bladder Surgery, Cholecystectomy, Heart Catheterization With Stent, Hysterectomy, Orthopedic Surgery Additional Past Surgical History / Comment(s): Gallbladder removed (2018) AAA 2006 (stent) Past Anesthesia/Blood Transfusion Reactions: No Reported Reaction Date of Last Stent Placement:: 2010 Past Psychological History: Anxiety, Depression, Panic Disorder Smoking Status: Current every day smoker Past Alcohol Use History: None Reported Additional Past Alcohol Use History / Comment(s): She was a smoker starting in 1956. Smokes approx 5-8 cig.'s per day. Quit last Jun. but started again. Past Drug Use History: None Reported - Past Family History Brother(s) Family Medical History: Coronary Artery Disease (CAD), Myocardial Infarction ([place]) Father Additional Family Medical History / Comment(s): FROM CIRRHOSIS OF THE LIVER Mother Family Medical History: COPD Additional Family Medical History / Comment(s): FROM AAA, HAD HX of TB. Medications and Allergies Home Medications Medication Instructions Recorded Confirmed Type Apixaban [Eliquis] 2.5 mg PO BID #60 tablet 03/02/19 01/05/20 Rx DULoxetine HCL [Cymbalta] 60 mg PO BID 09/28/19 01/05/20 History Fesoterodine Fumarate [Toviaz] 8 mg PO DAILY 09/28/19 01/05/20 History Pramipexole [Mirapex] 0.125 mg PO HS 09/28/19 01/05/20 History Nebivolol [Bystolic] 5 mg PO BID tab 09/30/19 01/05/20 Rx ALPRAZolam [Xanax] 1 mg PO BID PRN 01/05/20 01/05/20 History Aspirin 81 mg PO DAILY 01/05/20 01/05/20 History Dexlansoprazole [Dexilant] 60 mg PO DAILY 01/05/20 01/05/20 History Dicyclomine [Bentyl] 20 mg PO TID PRN 01/05/20 01/05/20 History Levothyroxine Sodium [Synthroid] 50 mcg PO DAILY 01/05/20 01/05/20 History Tiotropium [place] [Spiriva 8 gm INHALATION RT-BID 01/05/20 01/05/20 History Respimat] amLODIPine [Norvasc] 5 mg PO DAILY 01/05/20 01/05/20 History Allergies Allergy/AdvReac Type Severity Reaction Status Date / Time naproxen sodium [From Aleve] Allergy Severe Anaphylaxis Verified 01/05/20 13:35 adhesive Allergy Rash/Hives Verified 01/05/20 13:35 clindamycin Allergy Anaphylaxis Verified 01/05/20 13:35 gentamicin [Gentamicin] Allergy SWELLING Verified 01/05/20 13:35 OF FACE W/ EYE DROPS latex Allergy Rash/Hives Verified 01/05/20 13:35 levothyroxine sodium Allergy Unknown Verified 01/05/20 13:35 [From Synthroid] losartan Allergy Unknown Verified 01/05/20 13:35 Penicillins Allergy Rash/Hives Verified 01/05/20 13:35 Sulfa (Sulfonamide Allergy Swelling Verified 01/05/20 13:35 Antibiotics) IN MOUTH sulfamethoxazole Allergy swelling Verified 01/05/20 13:35 [From Bactrim] tongue sulfanilamide Allergy Unknown Verified 01/05/20 13:35 trimethoprim [From Bactrim] Allergy Swelling Verified 01/05/20 13:35 venom-honey bee Allergy Dyspnea Verified 01/05/20 13:35 [bee venom (honey bee)] cinnamon [Cinnamon] AdvReac Dyspnea Verified 01/05/20 13:35 codeine AdvReac Nausea & Verified 01/05/20 13:35 Vomiting paola AdvReac Dyspnea Verified 01/05/20 13:35 Iodinated Contrast Media AdvReac Dyspnea Verified 01/05/20 13:35 [Iodinated Contrast- Oral and IV Dye] montelukast sodium AdvReac Wheezing Verified 01/05/20 13:35 [From Singulair] pantoprazole sodium AdvReac Abdominal Verified 01/05/20 13:35 [From Protonix] Pain red dye AdvReac Abdominal Verified 01/05/20 13:35 Pain BANDAIDS Allergy Rash/Hives Uncoded 01/05/20 13:36 Dye for gallbladder scan. Allergy Anaphylaxis Uncoded 01/05/20 13:36 tomatoes Allergy Abdominal Uncoded 01/05/20 13:36 Pain Physical Exam Vitals: Vital Signs Temp Pulse Pulse Resp BP BP Pulse Ox 01/08/20 10:58 68 01/08/20 10:50 72 01/08/20 07:30 64 01/08/20 07:18 68 01/08/20 07:00 98.4 F 73 16 176/72 100 01/08/20 01:30 98.3 F 69 20 164/63 100 01/07/20 20:20 64 01/07/20 20:08 64 01/07/20 19:30 98.2 F 63 20 138/65 97 01/07/20 18:00 161/77 01/07/20 16:28 184/64 01/07/20 15:39 60 01/07/20 15:29 60 01/07/20 15:24 185/69 01/07/20 14:23 97.5 F L 64 18 185/67 183/68 99 Intake and Output 01/07/20 01/08/20 01/08/20 22:59 06:59 14:59 Intake Total 50 10 Balance 50 10 Intake: Oral 50 10 Other: Voiding Method Toilet # Voids 1 # Bowel Movements 1 GENERAL EXAM: Alert, frail cachectic 69-year-old female patient, on room air with saturation up to 100%, comfortable in no apparent distress. HEAD: Normocephalic. EYES: Normal reaction of pupils, equal size. NOSE: Clear with pink turbinates. THROAT: No erythema or exudates. NECK: No masses, no JVD. CHEST: No chest wall deformity. LUNGS: Equal air entry with no crackles, wheeze, rhonchi or dullness. Diminished. CVS: S1 and S2 normal with no audible murmur, regular rhythm. ABDOMEN: No hepatosplenomegaly, normal bowel sounds, no guarding or rigidity. SPINE: Kyphoscoliosis SKIN: No rashes CENTRAL NERVOUS SYSTEM: No focal deficits, tone is normal in all 4 extremities. EXTREMITIES: There is no peripheral edema. No clubbing, no cyanosis. Peripheral pulses are intact. Results - Laboratory Findings CBC and BMP: 01/08/20 07:35 01/08/20 07:35 PT/INR, D-dimer PT 10.1 sec (9.0-12.0) 01/05/20 11:05 INR 1.0 (<1.2) 01/05/20 11:05 Abnormal lab findings: Abnormal Labs 01/05/20 01/05/20 01/06/20 11:05 11:05 04:55 RBC Hgb 10.9 L Hct 33.8 L MCHC RDW 16.2 H ESR Sodium 133 L Potassium 2.9 L Chloride Carbon Dioxide BUN 35 H Creatinine 2.85 H Glucose 131 H Calcium Iron % Saturation Total Protein 6.0 L Total Protein (PEP) Albumin 3.0 L Urine Protein 2+ H Urine Glucose (UA) 2+ H Urine Mucus Rare H Free [place] LC, Quant Free Lambda LC, Quant 01/06/20 01/06/20 01/07/20 08:15 08:15 09:11 RBC 3.60 L 3.64 L Hgb 9.7 L 10.2 L Hct 31.9 L 32.6 L MCHC 30.3 L RDW 15.8 H 16.0 H ESR Sodium Potassium Chloride 108 H Carbon Dioxide 20 L BUN 34 H Creatinine 2.40 H Glucose 108 H Calcium 7.9 L Iron % Saturation Total Protein Total Protein (PEP) Albumin Urine Protein Urine Glucose (UA) Urine Mucus Free [place] LC, Quant Free [place]ambda LC, Quant 01/07/20 01/07/20 01/07/20 09:11 16:46 16:46 RBC Hgb Hct MCHC RDW ESR 43 H Sodium 135 L Potassium 3.2 L 3.4 L Chloride 109 H 109 H Carbon Dioxide 20 L 20 L BUN 29 H 28 H Creatinine 2.28 H 2.16 H Glucose 147 H Calcium 8.1 L 7.7 L Iron 25 L % Saturation 8.93 L Total Protein 5.6 L Total Protein (PEP) Albumin 2.7 L Urine Protein Urine Glucose (UA) Urine Mucus Free [place] LC, Quant Free [place]ambda LC, Quant 01/07/20 01/08/20 01/08/20 16:47 07:35 07:35 RBC Hgb Hct MCHC RDW ESR Sodium Potassium Chloride 113 H Carbon Dioxide 21 L BUN 24 H Creatinine 1.96 H Glucose Calcium 8.0 L Iron % Saturation Total Protein 5.4 L Total Protein (PEP) 4.8 L Albumin 2.5 L Urine Protein Urine Glucose (UA) Urine Mucus Free [place] LC, Quant 8.68 H Free [place]ambda LC, Quant 4.11 H 01/08/20 07:35 RBC 3.76 L Hgb 10.0 L Hct 33.2 L MCHC 30.2 L RDW 16.3 H ESR Sodium Potassium Chloride Carbon Dioxide BUN Creatinine Glucose Calcium Iron % Saturation Total Protein Total Protein (PEP) Albumin Urine Protein Urine Glucose (UA) Urine Mucus Free [place] LC, Quant Free Lambda LC, Quant - Diagnostic Findings Chest x-ray: image reviewed CT scan - chest: image reviewed Assessment and Plan Assessment: 1 Abdominal pain secondary to constipation and suspected colitis 2 Ongoing weight loss with protein calorie malnutrition with failure to thrive 3 Posterior right apical band of thickening with slight increase compared to January 2019 4 Chronic obstructive pulmonary disease with extensive emphysematous changes on computed tomography scan 5 Chronic and ongoing tobacco dependence 6 History of coronary artery disease with previous stent placement 7 History of chronic anxiety 8 History of hepatitis C, treated with Harvoni 9 Abdominal aortic aneurysm with previous endovascular stent grafting and subsequent infection secondary to strep viridans bacteremia 10 Hyperlipidemia 11 Avascular necrosis of the bilateral hips Plan: The patient was seen and evaluated by Dr. Naylor Chest x-ray and CAT scan reviewed Slight increase in the right apical banding Follow up with Dr. Petersen in our office May benefit from outpatient PET scan Continue her home oxygen and COPD medications Home once cleared by medical and surgical services I, the cosigning physician, performed a history & physical examination of the patient. Lungs sounds are clear, diminished. Maintaining good O2 saturations in the 90s on room air. I discussed the assessment and plan of care with my nurse practitioner, Kourtney Menchaca. I attest to the above note as dictated by her. Time with Patient: Greater than 30
[2020-01-08] MEDS: oxyCODONE-APAP 5-325MG 1 EACH TAB PO PRN (15:39)
[2020-01-08] MEDS: LEVOFLOXACIN 250 MG TAB PO SCH (15:39)
[2020-01-08] MEDS: SODIUM CHLORIDE 0.9% 1,000 ML IV SCH (18:58)
[2020-01-08] MEDS: amLODIPine 5 MG TAB PO SCH (20:08)
[2020-01-08] MEDS: MIRTAZAPINE 15 MG TAB PO SCH ×2 (20:13→20:20)
[2020-01-08] MEDS: PRAMIPEXOLE 0.125 MG TAB PO SCH (20:21)
[2020-01-08] MEDS: ALPRAZolam 1 MG TAB PO PRN (22:37)
--- NOTE | 2020-01-08 23:58 | P.PN ---
Subjective Progress Note Date: 01/08/20 Principal diagnosis: normocytic anemia pulmonary nodule This is a 69 year old patient who originally presented with severe weakness, weight loss, and abdominal pain. CT abdomen revealed concern for fecal stasis and possible ileus. Surgery has evaluated patient. 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 Islas treated at that t [facility]), Carootid stenosis, aortic aneurysm (follows with vascular surgery Dr. Costa). She utilizes a walker at baseline and complained of worsening fatigue, wekaness unable to perform ADLs. COVID negative. A CT Chest revealed a known pulmonary nodule increase in size, weight loss, anemia, and chronic abdominal pain, therefore Medical oncology was asked to evaluate further. Assessment and Plan: Objective - Vital Signs Vital signs: Vital Signs Temp 98.4 F 01/08/20 07:00 Pulse 68 01/08/20 10:58 Resp 16 01/08/20 07:00 BP 176/72 01/08/20 07:00 Pulse Ox 100 01/08/20 07:00 Intake & Output 01/07/20 01/08/20 01/08/20 18:59 06:59 18:59 Intake Total 300 60 Balance 300 60 Intake: Intake, IV Titration 300 Amount Magnesium Sulfate-D5w Pmx 100 1 gm In Dextrose/Water 1 100ml.bag @ 100 mls/hr IVPB ONCE ONE Rx#: [id number] Sodium Chloride 0.9% 1, 200 000 ml @ 50 mls/hr IV . Q20H [facility] Rx#:[id number] Oral 60 Other: Voiding Method Toilet Toilet # Voids 2 1 # Bowel Movements 1 - Exam The patient appeared well nourished and normally developed. Vital signs as documented. Head exam is unremarkable. No scleral icterus or corneal arcus noted. Neck is without jugular venous distension, thyromegaly, or carotid bruits. Carotid upstrokes are brisk bilaterally. Lungs are clear to auscultation and percussion. Cardiac exam reveals the PMI to be normally sized and situated. Rhythm is regular. First and second heart sounds normal. No murmurs, rubs or gallops. Abdominal exam reveals normal bowel sounds, no masses, no organomegaly and no aortic enlargement. Extremities are nonedematous and both femoral and pedal pulses are normal. - Labs CBC & Chem 7: 01/08/20 07:35 01/08/20 07:35 Labs: Abnormal Lab Results - Last 24 Hours (Table) 01/07/20 01/07/20 01/07/20 Range/Units 16:46 16:46 16:47 RBC (3.80-5.40) m/uL Hgb (11.4-16.0) gm/dL Hct (34.0-46.0) % MCHC (31.0-37.0) g/dL RDW (11.5-15.5) % ESR 43 H (0-20) mm/hr Sodium 135 L (137-145) mmol/L Potassium 3.4 L (3.5-5.1) mmol/L Chloride 109 H (98-107) mmol/L Carbon Dioxide 20 L (22-30) mmol/L BUN 28 H (7-17) mg/dL Creatinine 2.16 H (0.52-1.04) mg/dL Glucose 147 H (74-99) mg/dL Calcium 7.7 L (8.4-10.2) mg/dL Iron 25 L (50-170) ug/dL % Saturation 8.93 L (12.00-45.00) Total Protein (6.3-8.2) g/dL Total Protein (PEP) (6.2-8.2) g/dL Albumin (3.5-5.0) g/dL Free [place] LC, Quant 8.68 H (0.33-1.94) mg/dL Free Lambda LC, Quant 4.11 H (0.57-2.63) mg/dL 01/08/20 01/08/20 01/08/20 Range/Units 07:35 07:35 07:35 RBC 3.76 L (3.80-5.40) m/uL Hgb 10.0 L (11.4-16.0) gm/dL Hct 33.2 L (34.0-46.0) % MCHC 30.2 L (31.0-37.0) g/dL RDW 16.3 H (11.5-15.5) % ESR (0-20) mm/hr Sodium (137-145) mmol/L Potassium (3.5-5.1) mmol/L Chloride 113 H (98-107) mmol/L Carbon Dioxide 21 L (22-30) mmol/L BUN 24 H (7-17) mg/dL Creatinine 1.96 H (0.52-1.04) mg/dL Glucose (74-99) mg/dL Calcium 8.0 L (8.4-10.2) mg/dL Iron (50-170) ug/dL % Saturation (12.00-45.00) Total Protein 5.4 L (6.3-8.2) g/dL Total Protein (PEP) 4.8 L (6.2-8.2) g/dL Albumin 2.5 L (3.5-5.0) g/dL Free [place] LC, Quant (0.33-1.94) mg/dL Free Lambda LC, Quant (0.57-2.63) mg/dL Assessment and Plan Assessment: Assessment and Recommendations: Normocytic Anemia: - Likely multifactorial with known CKD stage 3 (looks like steadily worsening since 04/2019), nutritional deficiencies as a likely contributing factor (un derweight), chronic inflammation. - Will check Iron, B12 and erythropoetin as well as retic, LDH - Monitor CBC, ccurrent hemoglobin is 10. Normal WBC count and platelets. Transfuse if less than 7. Increasing pulmonary Nodule: - Unknown etiology - Defer biopsy for tissue path to pulmonary . - Consideration of outpatient PET scan and biopsy accordingly. Fecal Stasis/ileus: - Gen Surgery is following - Abdominal discomfort. Hx: DVT - Continued on Eliquis Atrial Fib/CAD/RCA Stent: - Continued on Eliquis ALBERT/CKD: - Per Primary/Nephrology Teams Hx: DVT Multiple Co-Morbidities: - Per Primary Team Thank you we will follow along with you Patient's questions answered and understanding stated. Thank you for allowing us to participate in the care of your patient. Please feel free to call us with any questions. Filemon Azar MD Hematology Oncology [id number], [address] [place] [address] Office: [phone],
[2020-01-09] MEDS ORDERED: amLODIPine 5 MG TAB PO STA (04:04)
[2020-01-09] MEDS: SODIUM CHLORIDE 0.9% 1,000 ML IV SCH (04:09)
[2020-01-09] MEDS: oxyCODONE-APAP 5-325MG 1 EACH TAB PO PRN ×3 (04:15→22:04)
[2020-01-09] MEDS: LEVOTHYROXINE 50 MCG TAB PO SCH (05:48)
[2020-01-09 07:57] LABS: Anisocytosis Slight; Basophils % (A) 0 %; Eosinophils # (A) 0.4 k/uL (0-0.7); Eosinophils % (A) 4 %; HGB 11.4 gm/dL (11.4-16.0); Hypochromasia Moderate; Lymphocytes % (A) 22 %; MCH 26.9 pg (25.0-35.0); MCHC 30.7 g/dL (31.0-37.0); MCV 87.9 fL (80.0-100.0); Mean Platelet Volume 7.9; Monocytes # (A) 0.5 k/uL (0-1.0); Monocytes % (A) 6 %; Neutrophils # (A) 5.9 k/uL (1.3-7.7); Neutrophils % (A) 66 %; Platelet Count 213 k/uL (150-450); RBC 4.22 m/uL (3.80-5.40); RDW 16.4 % (11.5-15.5)
[2020-01-09 08:06] LABS: Albumin 2.5 g/dL (3.5-5.0); Calcium 8.2 mg/dL (8.4-10.2); Potassium 3.8 mmol/L (3.5-5.1); Total Bilirubin 0.3 mg/dL (0.2-1.3); Total Protein 5.3 g/dL (6.3-8.2)
[2020-01-09] MEDS: IPRATROPIUM 0.5 MG/2.5 ML NEBU INHALATION SCH ×4 (08:07→19:49)
[2020-01-09] MEDS: APIXABAN 2.5 MG TABLET PO SCH ×2 (08:18→22:06)
[2020-01-09] MEDS: amLODIPine 5 MG TAB PO SCH ×2 (08:18→22:06)
[2020-01-09] MEDS: CARVEDILOL 6.25 MG TAB PO SCH ×2 (08:18→17:07)
[2020-01-09] MEDS: hydrALAZINE HCL 50 MG TAB PO SCH ×2 (08:18→22:09)
[2020-01-09] MEDS: FAMOTIDINE 20 MG TAB PO SCH (08:18)
[2020-01-09] MEDS: metroNIDAZOLE 500 MG TAB PO SCH (08:18)
[2020-01-09] MEDS: DULoxetine HCL 30 MG CAPSULE.DR PO SCH (08:19)
--- NOTE | 2020-01-09 10:42 | P.PN ---
Progress Note - Text Progress Note Date: 01/09/20 Patient remains in her bed. She appears to be comfortable. She denies any abdominal pain. On exam vital signs are stable. Abdomen soft. Resolving colitis. Patient was discharged home per the medical service.
[2020-01-09] MEDS ORDERED: DULoxetine HCL 30 MG CAPSULE.DR PO ONE (11:45)
[2020-01-09] MEDS: TROSPIUM CHLORIDE 20 MG TABLET PO SCH ×2 (11:56→22:15)
[2020-01-09] MEDS ORDERED: metroNIDAZOLE 250 MG TABLET PO SCH (12:00)
--- NOTE | 2020-01-09 12:33 | P.PN ---
Subjective Progress Note Date: 01/09/20 Principal diagnosis: Acute kidney injury, elixir slight abnormality, acute diverticulitis, QT prolongation, significant weight loss, history of very day and the strep bacteremia from endovascular infection, lower back pain, A. fib with RVR, history of hep C, abdominal aortic aneurysm post endovascular stent, restless leg syndrome, generalized anxiety, pulmonary nodular with possible mass, advanced COPD and atherosclerotic heart disease. This is a 68-year-old female one of Dr. Colbert patient with past medical history of hepatitis C post the Harvoni therapy, history of CAD with non-ST elevated myocardial infarction in April 2017 status post heart catheterization and stenting of the RCA with heavily calcified right and left coronary systems and recommendations to maximize medical treatment, COPD, asthma, chronic hypoxic respiratory failure on home O2 at 3 L nasal cannula, previous history of DVT along with Takosubu syndrome, GI bleed (April 2016), chronic kidney disease III, multiple admissions for failure to thrive and chronic abdominal pain. 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 Islas at that time. History of carotid stenosis and aortic aneurysm followed by Dr. Costa. Patient complains of weakness for 10 days and gradually worsening. Weakness is continued to worsen she is unable to get out of bed or ambulate with a walker. Patient complains of nausea. She complains of pain in her abdomen and her lower back area. No diarrhea. Abdominal pain is in the left lower quadrant. Patient was afebrile, heart rate 75, blood pressure 140/82, pulse ox 90% on room air. Hemoglobin 10.9, WBC 7.9, platelet count 261. Sodium 133, potassium 2.9, chloride 101, CO2 24, BUN 35 and creatinine 2.85, blood sugar 131. Liver function tests within normal limits. Lactic acid 1.7. CAT scan of the abdomen and pelvis without contrast revealed dilated common bile duct. Correlate with lab values and HIDA scan if concern for acute cholecystitis. Ultrasound is unlikely to be beneficial due to adjacent bowel loops. Moderate degree of colonic fecal stasis and feelings dilated fluid-filled small bowel in the right abdomen. Findings favor ileus. Avascular necrosis of the hips. Patient received a dose of ceftriaxone and Flagyl, 1 L of IV fluids. Patient admitted to the [facility] floor and consult requested with cardiology for prolonged QT. Coronavirus testing in process. Patient is currently smoking half a pack per day. She utilizes oxygen at bedtime only. She has nebulizer. 01/05: The patient has been seen by informatics application analyst for QT prolongation. The most likely due to hypokalemia and okay to continue Levaquin and hold Cymbalta for 48 hours. We will plan to add in general surgery and patient would like Dr. Milligan. Ultrasound of the abdomen to evaluate cholecystitis added. Patient continues to have abdominal pain which is in the left lower quadrant at this time. Patient is been afebrile, heart rate 74, blood pressure 121/50, pulse ox 99% on room air. Repeat WBC 8, hemoglobin 9.7, BUN 34 and creatinine 2.4. 01/06: Abdominal ultrasound revealed dilated common bile duct at 1 cm. Right upper quadrant ultrasound otherwise unremarkable. Patient has been seen by general surgery and magnesium citrate was ordered. Today patient's abdominal pain is improved. She did have magnesium citrate yesterday and had diarrhea during the night. Patient has been afebrile, heart rate 58, blood pressure 15 /72 and pulse ox 97% on room air. Overall, abdominal pain seems to be improving. Discussed patient's chronic weight loss and malnutrition. No underlying cause has been identified. Solangeeron will be added and consult with Dr. Nielsen. 01/07: Patient was seen general surgery no finding consistent with any intervention, also continue to have significant weight loss was seen oncology review all her testing there is a small nodular and along once to investigate further by pulmonary for possible bronchoscopy and biopsy also gastrointestinal finding with testing might be a possibility but colonoscopy was done not too long ago. In the meanwhile her acute kidney injury and electrolyte imbalance are a lot better at this point. We'll consult pulmonary if no intervention required patient might be able to go home tomorrow day after tomorrow continue titrate nutrition and supportive care, patient still and bleeding with the use of walker but refuses going to rehab. 01/08: Patient is more stable today except continue to complain of abdominal pain with nausea has not tolerate her food this morning. Patient was seen pulmonary review her films no planning to have Dr. Petersen see her as an outpatient and order PET scan as an outpatient for further management if needed. Further adjustment of medication including her antidepression and incontinence medication was done today patient is on pantoprazole twice a day as well continue [facility] if she stable tomorrow might be able to send her home and follow the rest as an outpatient. As of now there is no sign of CVA found anywhere so far. Objective - Vital Signs Vital signs: Vital Signs Temp 98.2 F 01/09/20 07:10 Pulse 80 01/09/20 08:29 Resp 16 01/09/20 07:10 BP 162/82 01/09/20 07:10 Pulse Ox 100 01/09/20 07:10 Intake & Output 01/08/20 01/09/20 01/09/20 18:59 06:59 18:59 Output Total 1 Balance -1 Output: Stool 1 Other: Voiding Method Toilet Toilet # Voids 2 2 - Exam Review of Systems Constitutional: Reports anorexia, Reports fatigue, Reports lethargy, Reports malaise, Reports poor appetite, Reports weakness, Reports weight loss, Denies chills, Denies fever Ears, nose, mouth and throat: Denies dysphagia, Denies headache, Denies nasal congestion, Denies nasal discharge, Denies sore throat, Denies vertigo Cardiovascular: Denies chest pain, Denies decreased exercise tolerance, Denies dyspnea on exertion, Denies edema, Denies leg edema, Denies lightheadedness, Denies shortness of breath, Denies syncope Respiratory: Denies cough, Denies cough with sputum, Denies dyspnea, Denies excessive sputum, Denies hemoptysis, Denies home oxygen, Denies respiratory infections, Denies wheezing Gastrointestinal: Reports abdominal pain, denies nausea, Denies constipation, Denies diarrhea, Denies loss of appetite, Denies vomiting Genitourinary: Denies dysuria, Denies hematuria, Denies urgency, Denies urinary frequency Menstruation: Reports postmenopausal Musculoskeletal: Reports gait dysfunction, Reports muscle weakness, Denies frequent falls, Denies myalgias Integumentary: Denies pruritus, Denies rash, Denies wounds Neurological: Denies change in mentation, Denies change in speech, Denies numbness, Denies seizures, Denies weakness Psychiatric: Denies anxiety, Denies depression Endocrine: Denies fatigue, Denies weight change Physical Examination: - Constitutional General appearance: cooperative, in no acute distress, frail appearing - EENT Eyes: anicteric sclerae, PERRLA, normal appearance ENT: hearing grossly normal NG tube with bile-colored return. - Neck Neck: no lymphadenopathy, normal ROM, no other, no rigidity, no stridor, no thyromegaly - Respiratory Respiratory: bilateral: CTA, negative: diminished, dullness, rales, rhonchi - Cardiovascular Rhythm: regular Heart sounds: normal: S1, S2 Abnormal Heart Sounds: no systolic murmur, no diastolic murmur, no rub, no S3 Gallop, no S4 Gallop, no click, no other - Gastrointestinal General gastrointestinal: normal bowel sounds, soft, very mild generalized tende rness. - Integumentary Integumentary: no rash - Neurologic Neurologic: CNII-XII intact - Musculoskeletal Musculoskeletal: gait normal, strength equal bilaterally - Psychiatric Psychiatric: A&O x's 3, appropriate affect - Labs CBC & Chem 7: 01/09/20 07:42 01/09/20 07:42 Labs: Abnormal Lab Results - Last 24 Hours (Table) 01/07/20 01/07/20 01/08/20 Range/Units 16:46 16:47 07:35 MCHC (31.0-37.0) g/dL RDW (11.5-15.5) % Sodium (137-145) mmol/L Chloride (98-107) mmol/L BUN (7-17) mg/dL Creatinine (0.52-1.04) mg/dL Glucose (74-99) mg/dL Calcium (8.4-10.2) mg/dL Iron 25 L (50-170) ug/dL % Saturation 8.93 L (12.00-45.00) Total Protein (6.3-8.2) g/dL Total Protein (PEP) 4.8 L (6.2-8.2) g/dL Albumin (3.5-5.0) g/dL Free [place] LC, Quant 8.68 H (0.33-1.94) mg/dL Free Lambda LC, Quant 4.11 H (0.57-2.63) mg/dL 01/09/20 01/09/20 Range/Units 07:42 07:42 MCHC 30.7 L (31.0-37.0) g/dL RDW 16.4 H (11.5-15.5) % Sodium 135 L (137-145) mmol/L Chloride 108 H (98-107) mmol/L BUN 24 H (7-17) mg/dL Creatinine 2.13 H (0.52-1.04) mg/dL Glucose 142 H (74-99) mg/dL Calcium 8.2 L (8.4-10.2) mg/dL Iron (50-170) ug/dL % Saturation (12.00-45.00) Total Protein 5.3 L (6.3-8.2) g/dL Total Protein (PEP) (6.2-8.2) g/dL Albumin 2.5 L (3.5-5.0) g/dL Free [place] LC, Quant (0.33-1.94) mg/dL Free Lambda LC, Quant (0.57-2.63) mg/dL Assessment and Plan Assessment: 1 acute kidney injury: With stage III chronic kidney disease, continue hydration patient creatinine is much better so far. 2 acute diverticulitis: Remain on Levaquin and Flagyl switch medication to oral doing much better. Decrease Flagyl 250 mg 3 times a day. 3 QT prolongation secondary to hypokalemia, still seen cardiology Cymbalta was held for 48 hours and Levaquin was continue patient EKG was normalized. 4 significant weight loss and possible cancer: No finding consistent with any abnormality with ultrasound and CAT scan, oncology consult was done patient might have to have biopsy from one of the lung nodular we'll consult pulmonary this point. GI study are up-to-date so far. No finding and all testing pulmo rusty had review of film will have PET scan as an outpatient. 5 chronic history of bilateral avascular necrosis still seen Dr. Whipple orthopedic. 6 history of very dense strep bacteremia secondary to endovascular infection has improved was treated. 7 chronic history of atherosclerotic heart disease: Still seeing cardiology has been on amlodipine and diastolic no chest pain or angina. 8 chronic history of COPD: Remain on MDI inhaler. 9 chronic history of smoking with smoking cessation was addressed on nicotine patch. 10 chronic history of restless leg syndrome has been on Mirapex 0.125 g at the time. 11 severe protein calorie malnutrition continue diet continue dietitian recommendation and remain on Remeron. 12 debility: Continue PTOT patient can benefit from rehab she had refused at this point. 13 depression: Titrate Cymbalta to 60 mg twice a day as before her hospitalization. CODE STATUS: Full code. Discharge planning: If patient is doing better tomorrow we'll send her home to follow with PET scan and pulmonary as an outpatient.
--- NOTE | 2020-01-09 12:47 | P.PN ---
Subjective Progress Note Date: 01/09/20 Principal diagnosis: Abdominal pain, back pain This is a very pleasant 69-year-old female patient who follows with Dr. Colbert as her primary care provider. She has a history of coronary artery disease with previous stent placement to the RCA, T[place] Subu syndrome, hepatitis C status post Harvoni therapy, GI bleed, chronic kidney disease stage III, chronic abdominal pain, failure to thrive with malnutrition, aortic aneurysm graft and stent complicated by strep viridans bacteremia, carotid stenosis, avascular necrosis of the bilateral hips, chronic obstructive pulmonary disease with FEV1 value 85% of predicted in 2017. Chronic and ongoing tobacco dependence. She was last seen by Dr. Petersen in our office in 2018. She presented here to the emergency room on 01/05/2020 with a ten-day history of progressive weakness. She was even having difficulty getting out of bed and ambulating with her walker. She was having abdominal discomfort. Computed tomography scan of the abdomen revealed dilated, mild duct with possibly acute cholecystitis, moderate degree of colonic fecal stasis and dilated loops of the small bowel favoring ileus. A computed tomography scan of the chest revealed a posterior right apical band of thickening that was slightly increased in size compared to January 2019. There is extensive emphysematous changes as well. We are consulted for the same. She is seen today in consultation on the regular medical floor. She is awake and alert in no acute distress. Currently resting comfortably in bed. No worsening shortness of breath, cough or congestion. She is maintaining O2 saturations up to 100% on room air. She's been afebrile. White count 6.6. Hemoglobin 10.0. Sodium 139. Potassium 4.1. Creatinine 1.96. Patient is seen today 01/09/2020 in follow-up on the regular medical floor. She is awake and alert in no acute distress. Resting fairly comfortably in bed. No complaints of shortness of breath, cough or congestion. Maintaining O2 saturations up to 100% on room air. She's been afebrile. Hemodynamically stable. White count 9.0. Hemoglobin 11.4. Sodium 135. Potassium 3.8. Creatinine 2.13. She remains on Levaquin and Flagyl. Surgery is on the case and feel the colitis is resolving. No plans for surgical intervention at this point. Objective - Vital Signs Vital signs: Vital Signs Temp 98.2 F 01/09/20 07:10 Pulse 76 01/09/20 11:40 Resp 16 01/09/20 07:10 BP 133/70 01/09/20 10:57 Pulse Ox 100 01/09/20 07:10 Intake & Output 01/08/20 01/09/20 01/09/20 18:59 06:59 18:59 Output Total 1 Balance -1 Output: Stool 1 Other: Voiding Method Toilet Toilet # Voids 2 2 1 - Exam GENERAL EXAM: Alert, frail cachectic 69-year-old female patient, on room air with saturation up to 100%, comfortable in no apparent distress. HEAD: Normocephalic. EYES: Normal reaction of pupils, equal size. NOSE: Clear with pink turbinates. THROAT: No erythema or exudates. NECK: No masses, no JVD. CHEST: No chest wall deformity. LUNGS: Equal air entry with no crackles, wheeze, rhonchi or dullness. Diminished. CVS: S1 and S2 normal with no audible murmur, regular rhythm. ABDOMEN: No hepatosplenomegaly, normal bowel sounds, no guarding or rigidity. SPINE: Kyphoscoliosis SKIN: No rashes CENTRAL NERVOUS SYSTEM: No focal deficits, tone is normal in all 4 extremities. EXTREMITIES: There is no peripheral edema. No clubbing, no cyanosis. Peripheral pulses are intact. - Labs CBC & Chem 7: 01/09/20 07:42 01/09/20 07:42 Labs: Abnormal Lab Results - Last 24 Hours (Table) 01/09/20 01/09/20 Range/Units 07:42 07:42 MCHC 30.7 L (31.0-37.0) g/dL RDW 16.4 H (11.5-15.5) % Sodium 135 L (137-145) mmol/L Chloride 108 H (98-107) mmol/L BUN 24 H (7-17) mg/dL Creatinine 2.13 H (0.52-1.04) mg/dL Glucose 142 H (74-99) mg/dL Calcium 8.2 L (8.4-10.2) mg/dL Total Protein 5.3 L (6.3-8.2) g/dL Albumin 2.5 L (3.5-5.0) g/dL Assessment and Plan Assessment: 1 Abdominal pain secondary to constipation and suspected colitis 2 Ongoing weight loss with protein calorie malnutrition with failure to thrive 3 Posterior right apical band of thickening with slight increase compared to January 2019 4 Chronic obstructive pulmonary disease with extensive emphysematous changes on computed tomography scan 5 Chronic and ongoing tobacco dependence 6 History of coronary artery disease with previous stent placement 7 History of chronic anxiety 8 History of hepatitis C, treated with Harvoni 9 Abdominal aortic aneurysm with previous endovascular stent grafting and subsequent infection secondary to strep viridans bacteremia 10 Hyperlipidemia 11 Avascular necrosis of the bilateral hips Plan: The patient was seen and evaluated by Dr. Naylor Follow up with Dr. Petersen in our office Continue her home oxygen and COPD medications Home once cleared by medical and surgical services I, the cosigning physician, performed a history & physical examination of the patient. Lungs sounds are clear, diminished. Maintaining good O2 saturations in the 90s on room air. I discussed the assessment and plan of care with my nurse practitioner, Kourtney Menchaca. I attest to the above note as dictated by her.
[2020-01-09] MEDS: metroNIDAZOLE 250 MG TABLET PO SCH (15:13)
[2020-01-09] MEDS: LEVOFLOXACIN 250 MG TAB PO SCH (15:13)
[2020-01-09] MEDS: PANTOPRAZOLE 40 MG TABLET PO SCH (17:07)
[2020-01-09] MEDS: MIRTAZAPINE 15 MG TAB PO SCH (22:04)
[2020-01-09] MEDS: DULoxetine HCL 60 MG CAPSULE.DR PO SCH (22:07)
[2020-01-09] MEDS: PRAMIPEXOLE 0.125 MG TAB PO SCH (22:15)
[2020-01-09] MEDS: ALPRAZolam 1 MG TAB PO PRN (22:19)
[2020-01-10] MEDS: metroNIDAZOLE 250 MG TABLET PO SCH ×4 (01:04→23:02)
[2020-01-10] MEDS: SODIUM CHLORIDE 0.9% 1,000 ML IV SCH ×2 (01:05→21:51)
[2020-01-10] MEDS: LEVOTHYROXINE 50 MCG TAB PO SCH (05:01)
[2020-01-10 07:35] LABS: Anisocytosis Slight; Basophils % (A) 0 %; Eosinophils # (A) 0.5 k/uL (0-0.7); Eosinophils % (A) 5 %; HCT 37.7 % (34.0-46.0); HGB 11.6 gm/dL (11.4-16.0); Hypochromasia Moderate; Lymphocytes # (A) 2.6 k/uL (1.0-4.8); Lymphocytes % (A) 25 %; MCH 26.9 pg (25.0-35.0); MCHC 30.8 g/dL (31.0-37.0); MCV 87.3 fL (80.0-100.0); Mean Platelet Volume 8.4; Monocytes # (A) 0.6 k/uL (0-1.0); Monocytes % (A) 5 %; Neutrophils # (A) 6.5 k/uL (1.3-7.7); Neutrophils % (A) 63 %; Platelet Count 220 k/uL (150-450); RBC 4.32 m/uL (3.80-5.40); RDW 16.3 % (11.5-15.5); WBC 10.4 k/uL (3.8-10.6)
[2020-01-10 07:53] LABS: Albumin 2.4 g/dL (3.5-5.0); Calcium 8.3 mg/dL (8.4-10.2); Potassium 3.5 mmol/L (3.5-5.1); Total Bilirubin 0.3 mg/dL (0.2-1.3); Total Protein 5.1 g/dL (6.3-8.2)
[2020-01-10] MEDS: IPRATROPIUM 0.5 MG/2.5 ML NEBU INHALATION SCH ×4 (08:08→20:41)
[2020-01-10] MEDS: TROSPIUM CHLORIDE 20 MG TABLET PO SCH ×2 (08:35→20:06)
[2020-01-10] MEDS: CARVEDILOL 6.25 MG TAB PO SCH ×2 (08:35→17:21)
[2020-01-10] MEDS: PANTOPRAZOLE 40 MG TABLET PO SCH ×2 (08:35→17:21)
[2020-01-10] MEDS: DULoxetine HCL 60 MG CAPSULE.DR PO SCH ×2 (08:35→20:05)
[2020-01-10] MEDS: APIXABAN 2.5 MG TABLET PO SCH ×2 (08:35→20:05)
[2020-01-10] MEDS: hydrALAZINE HCL 50 MG TAB PO SCH ×2 (08:35→20:05)
[2020-01-10] MEDS: amLODIPine 5 MG TAB PO SCH ×2 (08:35→20:05)
[2020-01-10] MEDS: oxyCODONE-APAP 5-325MG 1 EACH TAB PO PRN ×2 (08:42→20:07)
[2020-01-10] MEDS ORDERED: NA PHOS,M-B/NA PHOS,DI-BA 133 ML ENEMA RECTAL STA (10:17)
[2020-01-10] MEDS ORDERED: IOPAMIDOL CONTRAST (ORAL USE) VIAL PO PRN (10:20)
[2020-01-10] MEDS ORDERED: LACTULOSE 20 GM/30 ML CUP PO SCH (10:30)
[2020-01-10] MEDS ORDERED: SENNOSIDES 8.6 MG TAB PO STA (11:05)
--- NOTE | 2020-01-10 11:10 | P.PN ---
Subjective Progress Note Date: 01/10/20 Principal diagnosis: Acute kidney injury, elixir slight abnormality, acute diverticulitis, QT prolongation, significant weight loss, history of very day and the strep bacteremia from endovascular infection, lower back pain, A. fib with RVR, history of hep C, abdominal aortic aneurysm post endovascular stent, restless leg syndrome, generalized anxiety, pulmonary nodular with possible mass, advanced COPD and atherosclerotic heart disease. This is a 68-year-old female one of Dr. Colbert patient with past medical history of hepatitis C post the Harvoni therapy, history of CAD with non-ST elevated myocardial infarction in April 2017 status post heart catheterization and stenting of the RCA with heavily calcified right and left coronary systems and recommendations to maximize medical treatment, COPD, asthma, chronic hypoxic respiratory failure on home O2 at 3 L nasal cannula, previous history of DVT along with Takosubu syndrome, GI bleed (April 2016), chronic kidney disease III, multiple admissions for failure to thrive and chronic abdominal pain. 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 Islas at that time. History of carotid stenosis and aortic aneurysm followed by Dr. Costa. Patient complains of weakness for 10 days and gradually worsening. Weakness is continued to worsen she is unable to get out of bed or ambulate with a walker. Patient complains of nausea. She complains of pain in her abdomen and her lower back area. No diarrhea. Abdominal pain is in the left lower quadrant. Patient was afebrile, heart rate 75, blood pressure 140/82, pulse ox 90% on room air. Hemoglobin 10.9, WBC 7.9, platelet count 261. Sodium 133, potassium 2.9, chloride 101, CO2 24, BUN 35 and creatinine 2.85, blood sugar 131. Liver function tests within normal limits. Lactic acid 1.7. CAT scan of the abdomen and pelvis without contrast revealed dilated common bile duct. Correlate with lab values and HIDA scan if concern for acute cholecystitis. Ultrasound is unlikely to be beneficial due to adjacent bowel loops. Moderate degree of colonic fecal stasis and feelings dilated fluid-filled small bowel in the right abdomen. Findings favor ileus. Avascular necrosis of the hips. Patient received a dose of ceftriaxone and Flagyl, 1 L of IV fluids. Patient admitted to the [facility] floor and consult requested with cardiology for prolonged QT. Coronavirus testing in process. Patient is currently smoking half a pack per day. She utilizes oxygen at bedtime only. She has nebulizer. 01/05: The patient has been seen by access rep for QT prolongation. The most likely due to hypokalemia and okay to continue Levaquin and hold Cymbalta for 48 hours. We will plan to add in general surgery and patient would like Dr. Milligan. Ultrasound of the abdomen to evaluate cholecystitis added. Patient continues to have abdominal pain which is in the left lower quadrant at this time. Patient is been afebrile, heart rate 74, blood pressure 121/50, pulse ox 99% on room air. Repeat WBC 8, hemoglobin 9.7, BUN 34 and creatinine 2.4. 01/06: Abdominal ultrasound revealed dilated common bile duct at 1 cm. Right upper quadrant ultrasound otherwise unremarkable. Patient has been seen by general surgery and magnesium citrate was ordered. Today patient's abdominal pain is improved. She did have magnesium citrate yesterday and had diarrhea during the night. Patient has been afebrile, heart rate 58, blood pressure 15 /72 and pulse ox 97% on room air. Overall, abdominal pain seems to be improving. Discussed patient's chronic weight loss and malnutrition. No underlying cause has been identified. Solangeeron will be added and consult with Dr. Nielsen. 01/07: Patient was seen general surgery no finding consistent with any intervention, also continue to have significant weight loss was seen oncology review all her testing there is a small nodular and along once to investigate further by pulmonary for possible bronchoscopy and biopsy also gastrointestinal finding with testing might be a possibility but colonoscopy was done not too long ago. In the meanwhile her acute kidney injury and electrolyte imbalance are a lot better at this point. We'll consult pulmonary if no intervention required patient might be able to go home tomorrow day after tomorrow continue titrate nutrition and supportive care, patient still and bleeding with the use of walker but refuses going to rehab. 01/08: Patient is more stable today except continue to complain of abdominal pain with nausea has not tolerate her food this morning. Patient was seen pulmonary review her films no planning to have Dr. Petersen see her as an outpatient and order PET scan as an outpatient for further management if needed. Further adjustment of medication including her antidepression and incontinence medication was done today patient is on pantoprazole twice a day as well continue [facility] if she stable tomorrow might be able to send her home and follow the rest as an outpatient. As of now there is no sign of CVA found anywhere so far. 01/09: Patient continued to have significant abdominal pain with severe constipation also continue to have hypokalemia her QT interval slightly but better with cardiology. With the adjustment of medication patient still not doing well physically and psychologically will continue PTOT and social worker aide for possible rehab tomorrow. The meanwhile more adjustment for medication and patient will be going for another CAT scan of the abdomen and pelvis specially with the worsening not clear pain so far. Objective - Vital Signs Vital signs: Vital Signs Temp 97.8 F 01/10/20 02:20 Pulse 85 01/10/20 04:18 Resp 16 01/10/20 02:20 BP 145/75 01/10/20 04:18 Pulse Ox 97 01/10/20 02:20 Intake & Output 01/09/20 01/10/20 01/10/20 18:59 06:59 18:59 Other: Voiding Method Toilet Toilet # Voids 1 2 - Exam Review of Systems Constitutional: Reports anorexia, Reports fatigue, Reports lethargy, Reports malaise, Reports poor appetite, Reports weakness, Reports weight loss, Denies chills, Denies fever Ears, nose, mouth and throat: Denies dysphagia, Denies headache, Denies nasal congestion, Denies nasal discharge, Denies sore throat, Denies vertigo Cardiovascular: Denies chest pain, Denies decreased exercise tolerance, Denies dyspnea on exertion, Denies edema, Denies leg edema, Denies lightheadedness, Denies shortness of breath, Denies syncope Respiratory: Denies cough, Denies cough with sputum, Denies dyspnea, Denies excessive sputum, Denies hemoptysis, Denies home oxygen, Denies respiratory infections, Denies wheezing Gastrointestinal: Reports abdominal pain, denies nausea, Denies constipation, Denies diarrhea, Denies loss of appetite, Denies vomiting Genitourinary: Denies dysuria, Denies hematuria, Denies urgency, Denies urinary frequency Menstruation: Reports postmenopausal Musculoskeletal: Reports gait dysfunction, Reports muscle weakness, Denies frequent falls, Denies myalgias Integumentary: Denies pruritus, Denies rash, Denies wounds Neurological: Denies change in mentation, Denies change in speech, Denies numbness, Denies seizures, Denies weakness Psychiatric: Denies anxiety, Denies depression Endocrine: Denies fatigue, Denies weight change Physical Examination: - Constitutional General appearance: cooperative, in no acute distress, frail appearing - EENT Eyes: anicteric sclerae, PERRLA, normal appearance ENT: hearing grossly normal NG tube with bile-colored return. - Neck Neck: no lymphadenopathy, normal ROM, no other, no rigidity, no stridor, no thyromegaly - Respiratory Respiratory: bilateral: CTA, negative: diminished, dullness, rales, rhonchi - Cardiovascular Rhythm: regular Heart sounds: normal: S1, S2 Abnormal Heart Sounds: no systolic murmur, no diastolic murmur, no rub, no S3 Gallop, no S4 Gallop, no click, no other - Gastrointestinal General gastrointestinal: normal bowel sounds, soft, very mild generalized tenderness. - Integumentary Integumentary: no rash - Neurologic Neurologic: CNII-XII intact - Musculoskeletal Musculoskeletal: gait normal, strength equal bilaterally - Psychiatric Psychiatric: A&O x's 3, appropriate affect - Labs CBC & Chem 7: 01/10/20 07:14 01/10/20 07:14 Labs: Abnormal Lab Results - Last 24 Hours (Table) 01/09/20 01/10/20 01/10/20 Range/Units 07:42 07:14 07:14 MCHC 30.8 L (31.0-37.0) g/dL RDW 16.3 H (11.5-15.5) % Sodium 135 L 132 L (137-145) mmol/L Chloride 108 H (98-107) mmol/L Carbon Dioxide 19 L (22-30) mmol/L BUN 24 H 26 H (7-17) mg/dL Creatinine 2.13 H 2.06 H (0.52-1.04) mg/dL Glucose 142 H 105 H (74-99) mg/dL Calcium 8.2 L 8.3 L (8.4-10.2) mg/dL Total Protein 5.3 L 5.1 L (6.3-8.2) g/dL Albumin 2.5 L 2.4 L (3.5-5.0) g/dL Assessment and Plan Assessment: 1 acute kidney injury: With stage III chronic kidney disease, continue hydration patient creatinine is much better so far. 2 acute diverticulitis: Remain on Levaquin and Flagyl switch medication to oral doing much better. Decrease Flagyl 250 mg 3 times a day. Continue to have significant pain will be doing another CAT scan today and continue on better regime for her stool impaction see if it improved. 3 QT prolongation secondary to hypokalemia, still seen cardiology Cymbalta was held for 48 hours and Levaquin was continue patient EKG was normalized. 4 significant weight loss and possible cancer: No finding consistent with any abnormality with ultrasound and CAT scan, oncology consult was done patient might have to have biopsy from one of the lung nodular we'll consult pulmonary this point. GI study are up-to-date so far. No finding and all testing pu lmonary had review of film will have PET scan as an outpatient. 5 hypokalemia: Consult nephrology and continue on 20 mEq of potassium chloride daily from now on. 6 history of very dense strep bacteremia secondary to endovascular infection has improved was treated. 7 chronic history of atherosclerotic heart disease: Still seeing cardiology has been on amlodipine and diastolic no chest pain or angina. 8 chronic history of COPD: Remain on MDI inhaler. 9 chronic history of smoking with smoking cessation was addressed on nicotine patch. 10 chronic history of restless leg syndrome has been on Mirapex 0.125 g at the time. 11 severe protein calorie malnutrition continue diet continue dietitian recommendation and remain on Remeron. 12 debility: Continue PTOT patient can benefit from rehab she had refused at this point. 13 depression: Titrate Cymbalta to 60 mg twice a day as before her ho spitalization. CODE STATUS: Full code. Discharge planning: Even though patient will still require PET scan and further testing with pulmonary patient is not in any physical condition to be able to go home most likely will be going to longterm rehab and follow the rest of her testing as an outpatient with pulmonary and oncology.
[2020-01-10] MEDS: BARIUM SULFATE 450 ML ORAL.SUSP BOTTLE PO PRN ×2 (11:15→14:47)
[2020-01-10] MEDS ORDERED: POTASSIUM CHLORIDE ER 20 MEQ TAB.ER PO STA (11:32)
--- NOTE | 2020-01-10 11:34 | P.NPCON ---
History of Present Illness - Reason for Consult acute renal failure - History of Present Illness Reason for consultation: Acute kidney injury on chronic kidney disease History of present illness: Patient is a 69-year-old female seen in renal consultation for acute kidney injury on chronic kidney disease. Patient presented to the hospital on 01/05/2020 with generalized weakness. She was also complaining of abdominal pain. Creatinine was 2.85 on admission and it did come down to 1.96 this admission. It is fairly stable at 2.06 today. Patient's creatinine is since April 2019 has been in the range of 1.3-2. Prior to that it was 0.9 in February 2019. Patient does have history of hepatitis C but states she was treated about 4-5 years ago. Patient states abdominal pain started about 10 days prior to admission. She was also progressively getting weaker and unable to get out of bed. She denies vomiting or diarrhea. She has been nauseous. She scheduled to undergo CAT scan of the abdomen and pelvis today. She is not on IV fluids at this time. She has been waiting. No hematuria or dysuria. No history of diabetes. Denies regular use of nonsteroidals. Vital signs are stable. General: The patient appeared well nourished and normally developed. HEENT: Head exam is unremarkable. Neck is without jugular venous distension. LUNGS: Lungs are clear to auscultation and percussion. Breath sounds decreased. HEART: Rate and Rhythm are regular. First and second heart sounds normal. No murmurs, rubs or gallops. ABDOMEN: Soft, nondistended. Mild tenderness. EXTREMITITES: No clubbing, cyanosis, or edema. Past Medical History Past Medical History: Atrial Fibrillation, Asthma, Coronary Artery Disease (CAD), Chest Pain / Angina, COPD, Deep Vein Thrombosis (DVT), GERD/Reflux, GI Bleed, Hypertension, Liver Disease, Memory Impairment, Myocardial Infarction (MD), Pneumonia, Respiratory Disorder, Sleep Apnea/CPAP/BIPAP, Vascular Disorder Additional Past Medical History / Comment(s): on 10/25/18 pt states was having pizza with family and food got stuck, pt had small amount of emesis. She went to bed and woke up to discover that she was incontinent of stool while she slept. Pt states that this has never happened.Patient continues to have difficulty swallowing like before. HEP C. Aortic aneurysm with stent-being monitored, Takosubu syndrome in 2016, R groin dissection/cardiac cath, recent bacteremia- blood cultures positive for veridans strep-completed antibiotics, bronchitis, home O2 at 3L/NC most of the time, LG without device-stable, DVT R leg, lower GI bleed, hepatitis C with Harvoni treatment, anemia with iron infusions x2, bilateral femoral head avascular necrosis, RLS, migraines, insomnia, constipation, overactive bladder, post menopausal bleed. Last Myocardial Infarction Date:: 07/2017 History of Any Multi-Drug Resistant Organisms: None Reported Past Surgical History: Bladder Surgery, Cholecystectomy, Heart Catheterization With Stent, Hysterectomy, Orthopedic Surgery Additional Past Surgical History / Comment(s): Gallbladder removed (2018) AAA 2006 (stent) Past Anesthesia/Blood Transfusion Reactions: No Reported Reaction Date of Last Stent Placement:: 2010 Past Psychological History: Anxiety, Depression, Panic Disorder Smoking Status: Current every day smoker Past Alcohol Use History: None Reported Additional Past Alcohol Use History / Comment(s): She was a smoker starting in 1956. Smokes approx 5-8 cig.'s per day. Quit last Jun. but started again. Past Drug Use History: None Reported - Past Family History Brother(s) Family Medical History: Coronary Artery Disease (CAD), Myocardial Infarction (MD) Father Additional Family Medical History / Comment(s): FROM CIRRHOSIS OF THE LIVER Mother Family Medical History: COPD Additional Family Medical History / Comment(s): FROM AAA, HAD HX of TB. Medications and Allergies Home Medications Medication Instructions Recorded Confirmed Type Apixaban [Eliquis] 2.5 mg PO BID #60 tablet 03/02/19 01/05/20 Rx DULoxetine HCL [Cymbalta] 60 mg PO BID 09/28/19 01/05/20 History Fesoterodine Fumarate [Toviaz] 8 mg PO DAILY 09/28/19 01/05/20 History Pramipexole [Mirapex] 0.125 mg PO HS 09/28/19 01/05/20 History Nebivolol [Bystolic] 5 mg PO BID tab 09/30/19 01/05/20 Rx ALPRAZolam [Xanax] 1 mg PO BID PRN 01/05/20 01/05/20 History Aspirin 81 mg PO DAILY 01/05/20 01/05/20 History Dexlansoprazole [Dexilant] 60 mg PO DAILY 01/05/20 01/05/20 History Dicyclomine [Bentyl] 20 mg PO TID PRN 01/05/20 01/05/20 History Levothyroxine Sodium [Synthroid] 50 mcg PO DAILY 01/05/20 01/05/20 History Tiotropium [place] [Spiriva 8 gm INHALATION RT-BID 01/05/20 01/05/20 History Respimat] amLODIPine [Norvasc] 5 mg PO DAILY 01/05/20 01/05/20 History Allergies Allergy/AdvReac Type Severity Reaction Status Date / Time naproxen sodium [From Aleve] Allergy Severe Anaphylaxis Verified 01/05/20 13:35 adhesive Allergy Rash/Hives Verified 01/05/20 13:35 clindamycin Allergy Anaphylaxis Verified 01/05/20 13:35 gentamicin [Gentamicin] Allergy SWELLING Verified 01/05/20 13:35 OF FACE W/ EYE DROPS latex Allergy Rash/Hives Verified 01/05/20 13:35 levothyroxine sodium Allergy Unknown Verified 01/05/20 13:35 [From Synthroid] losartan Allergy Unknown Verified 01/05/20 13:35 Penicillins Allergy Rash/Hives Verified 01/05/20 13:35 Sulfa (Sulfonamide Allergy Swelling Verified 01/05/20 13:35 Antibiotics) IN MOUTH sulfamethoxazole Allergy swelling Verified 01/05/20 13:35 [From Bactrim] tongue sulfanilamide Allergy Unknown Verified 01/05/20 13:35 trimethoprim [From Bactrim] Allergy Swelling Verified 01/05/20 13:35 venom-honey bee Allergy Dyspnea Verified 01/05/20 13:35 [bee venom (honey bee)] cinnamon [Cinnamon] AdvReac Dyspnea Verified 01/05/20 13:35 codeine AdvReac Nausea & Verified 01/05/20 13:35 Vomiting paola AdvReac Dyspnea Verified 01/05/20 13:35 Iodinated Contrast Media AdvReac Dyspnea Verified 01/05/20 13:35 [Iodinated Contrast- Oral and IV Dye] montelukast sodium AdvReac Wheezing Verified 01/05/20 13:35 [From Singulair] pantoprazole sodium AdvReac Abdominal Verified 01/05/20 13:35 [From Protonix] Pain red dye AdvReac Abdominal Verified 01/05/20 13:35 Pain BANDAIDS Allergy Rash/Hives Uncoded 01/05/20 13:36 Dye for gallbladder scan. Allergy Anaphylaxis Uncoded 01/05/20 13:36 tomatoes Allergy Abdominal Uncoded 01/05/20 13:36 Pain Physical Exam Vitals: Vital Signs Temp Pulse Pulse Resp BP BP Pulse Ox 01/10/20 08:20 80 01/10/20 08:09 80 01/10/20 07:09 97.5 F L 86 16 159/87 95 01/10/20 04:18 85 145/75 01/10/20 02:20 97.8 F 79 16 183/84 97 01/09/20 20:00 76 01/09/20 19:50 98.1 F 78 78 20 150/76 97 01/09/20 16:03 84 01/09/20 15:53 84 01/09/20 15:00 98.1 F 84 16 159/76 97 01/09/20 11:40 76 Intake and Output 01/09/20 01/10/20 01/10/20 22:59 06:59 14:59 Other: Voiding Method Toilet # Voids 1 2 Results - Lab Results Most recent lab results Calcium 8.3 mg/dL (8.4-10.2) L 01/10/20 07:14 Magnesium 2.2 mg/dL (1.6-2.3) 01/07/20 16:46 01/10/20 07:14 01/10/20 07:14 Assessment and Plan Plan: Assessment: 1. Acute kidney injury mostly prerenal improved with IV hydration. Creatinine was 2.85 on admission. Fairly stable at 2.0 today. She does have proteinuria on UA. 2. Chronic kidney disease stage III. Patient's creatinine from April through June 2019 was 1.3-1.5. CAT scan of the abdomen and pelvis revealed no hydronephrosis but left renal atrophy was noted. 3. Hyponatremia secondary to acute kidney injury and poor solute intake. 4. Colitis. Surgery following. No plans for surgical intervention at this time. 5. Constipation. 6. Hypertension with chronic kidney disease. Stable. 7. History of hep C status post treatment. 8. Metabolic acidosis secondary to acute kidney injury. Plan: Encouraged oral intake. Check renal ultrasound. Quantify proteinuria. Check serologies. Add oral sodium bicarbonate. Avoid nephrotoxins. Discontinue Fleet enemas. Check serum and urine osmolality and urine sodium level. 1500 mL fluid restriction. Patient will need to follow up outpatient for CKD care. Thank you for the consultation. I will continue to follow the patient with you during her hospital stay.
--- NOTE | 2020-01-10 11:51 | P.PN ---
Progress Note - Text Progress Note Date: 01/10/20 The patient is resting comfortably in her bed. She states however that her pain is worsened from yesterday. The medical services ordered a CAT scan of her abdomen today. On exam vital signs appear stable. Abdomen is tender throughout on palpation. Chronic on acute abdominal pain. Patient undergo repeat CAT scan. It is unclear the etiology of her pain.
--- NOTE | 2020-01-10 12:58 | US ---
EXAMINATION TYPE: US kidneys/renal and bladder DATE OF EXAM: 01/10/2020 COMPARISON: NONE CLINICAL HISTORY: karoline. Very limited exam due to overlying bowel gas EXAM MEASUREMENTS: Right Kidney: 9.3 x 3.5 x 5.1 cm Left Kidney: 9.3 x 5.0 x 4.2 cm Suboptimal visualization of the kidneys. Right Kidney: No hydronephrosis or masses seen. Loss of corticomedullary differentiation. Left Kidney: No hydronephrosis or masses seen Loss of corticomedullary differentiation. Bladder: wnl as visualized Bilateral Jets seen: No Small amount of ascites visualized. There is no evidence for hydronephrosis at this point in time. Urinary bladder is anechoic. Ureteral jets are not visualized. IMPRESSION: Suboptimal visualization of the kidneys. Loss of cortical medullary differentiation bilat erally suggest chronic medical renal disease. Small amount of ascites.
--- NOTE | 2020-01-10 13:44 | P.PN ---
Subjective Progress Note Date: 01/10/20 Principal diagnosis: Abdominal pain, back pain This is a very pleasant 69-year-old female patient who follows with Dr. Colbert as her primary care provider. She has a history of coronary artery disease with previous stent placement to the RCA, [place] syndrome, hepatitis C status post Harvoni therapy, GI bleed, chronic kidney disease stage III, chronic abdominal pain, failure to thrive with malnutrition, aortic aneurysm graft and stent complicated by strep viridans bacteremia, carotid stenosis, avascular necrosis of the bilateral hips, chronic obstructive pulmonary disease with FEV1 value 85% of predicted in 2017. Chronic and ongoing tobacco dependence. She was last seen by Dr. Petersen in our office in 2018. She presented here to the emergency room on 01/05/2020 with a ten-day history of progressive weakness. She was even having difficulty getting out of bed and ambulating with her walker. She was having abdominal discomfort. Computed tomography scan of the abdomen revealed dilated, mild duct with possibly acute cholecystitis, moderate degree of colonic fecal stasis and dilated loops of the small bowel favoring ileus. A computed tomography scan of the chest revealed a posterior right apical band of thickening that was slightly increased in size compared to January 2019. There is extensive emphysematous changes as well. We are consulted for the same. She is seen today in consultation on the regular medical floor. She is awake and alert in no acute distress. Currently resting comfortably in bed. No worsening shortness of breath, cough or congestion. She is maintaining O2 saturations up to 100% on room air. She's been afebrile. White count 6.6. Hemoglobin 10.0. Sodium 139. Potassium 4.1. Creatinine 1.96. Patient is seen today 01/09/2020 in follow-up on the regular medical floor. She is awake and alert in no acute distress. Resting fairly comfortably in bed. No complaints of shortness of breath, cough or congestion. Maintaining O2 saturations up to 100% on room air. She's been afebrile. Hemodynamically stable. White count 9.0. Hemoglobin 11.4. Sodium 135. Potassium 3.8. Creatinine 2.13. She remains on Levaquin and Flagyl. Surgery is on the case and feel the colitis is resolving. No plans for surgical intervention at this point. The patient is seen today 01/10/2020 and follow-up on the regular medical floor. She remains awake and alert in no acute distress. No shortness of breath, cough or congestion. Maintaining O2 saturation in the mid 90s on room air. Afebrile. White count 10.4. Hemoglobin 11.6. Sodium 132. Potassium 3.5. Creatinine 2.06. Ultrasound of the kidneys revealed no evidence of hydronephrosis. A repeat computed tomography scan of the abdomen is pending. Objective - Vital Signs Vital signs: Vital Signs Temp 97.5 F L 01/10/20 07:09 Pulse 80 01/10/20 08:20 Resp 16 01/10/20 07:09 BP 159/87 01/10/20 07:09 Pulse Ox 95 01/10/20 07:09 Intake & Output 01/09/20 01/10/20 01/10/20 18:59 06:59 18:59 Other: Voiding Method Toilet Toilet # Voids 1 2 - Exam GENERAL EXAM: Alert, frail cachectic 69-year-old female patient, on room air w ith saturation up to 95%, comfortable in no apparent distress. HEAD: Normocephalic. EYES: Normal reaction of pupils, equal size. NOSE: Clear with pink turbinates. THROAT: No erythema or exudates. NECK: No masses, no JVD. CHEST: No chest wall deformity. LUNGS: Equal air entry with no crackles, wheeze, rhonchi or dullness. Diminished. CVS: S1 and S2 normal with no audible murmur, regular rhythm. ABDOMEN: No hepatosplenomegaly, normal bowel sounds, no guarding or rigidity. SPINE: Kyphoscoliosis SKIN: No rashes CENTRAL NERVOUS SYSTEM: No focal deficits, tone is normal in all 4 extremities. EXTREMITIES: There is no peripheral edema. No clubbing, no cyanosis. Peripheral pulses are intact. - Labs CBC & Chem 7: 01/10/20 07:14 01/10/20 07:14 Labs: Abnormal Lab Results - Last 24 Hours (Table) 01/10/20 01/10/20 Range/Units 07:14 07:14 MCHC 30.8 L (31.0-37.0) g/dL RDW 16.3 H (11.5-15.5) % Sodium 132 L (137-145) mmol/L Carbon Dioxide 19 L (22-30) mmol/L BUN 26 H (7-17) mg/dL Creatinine 2.06 H (0.52-1.04) mg/dL Glucose 105 H (74-99) mg/dL Calcium 8.3 L (8.4-10.2) mg/dL Total Protein 5.1 L (6.3-8.2) g/dL Albumin 2.4 L (3.5-5.0) g/dL Assessment and Plan Assessment: 1 Abdominal pain secondary to constipation and suspected colitis 2 Ongoing weight loss with protein calorie malnutrition with failure to thrive 3 Posterior right apical band of thickening with slight increase compared to January 2019 4 Chronic obstructive pulmonary disease with extensive emphysematous changes on computed tomography scan 5 Chronic and ongoing tobacco dependence 6 History of coronary artery disease with previous stent placement 7 History of chronic anxiety 8 History of hepatitis C, treated with Harvoni 9 Abdominal aortic aneurysm with previous endovascular stent grafting and subsequent infection secondary to strep viridans bacteremia 10 Hyperlipidemia 11 Avascular necrosis of the bilateral hips 12 Acute kidney injury most likely prerenal improved with hydration. Ultrasound of the kidneys revealed no evidence of hydronephrosis. Plan: The patient was seen and evaluated by Dr. Naylor She remains stable from the pulmonary standpoint Home once cleared by medical and surgical services I, the cosigning physician, performed a history & physical examination of the patient. Lungs sounds are clear, diminished. Maintaining good O2 saturations in the 90s on room air. I discussed the assessment and plan of care with my nurse practitioner, Kourtney Menchaca. I attest to the above note as dictated by her.
--- NOTE | 2020-01-10 16:55 | P.PN ---
Subjective Progress Note Date: 01/10/20 Principal diagnosis: normocytic anemia pulmonary nodule This is a 69 year old patient who originally presented with severe weakness, weight loss, and abdominal pain. CT abdomen revealed concern for fecal stasis and possible ileus. Surgery has evaluated patient. 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 Islas treated at that t [facility]), Carootid stenosis, aortic aneurysm (follows with vascular surgery Dr. Costa). She utilizes a walker at baseline and complained of worsening fatigue, wekaness unable to perform ADLs. COVID negative. A CT Chest revealed a known pulmonary nodule increase in size, weight loss, anemia, and chronic abdominal pain, therefore Medical oncology was asked to evaluate further. Assessment and Plan: Objective - Vital Signs Vital signs: Vital Signs Temp 98.1 F 01/10/20 14:00 Pulse 79 01/10/20 14:00 Resp 16 01/10/20 14:00 BP 137/83 01/10/20 14:00 Pulse Ox 98 01/10/20 14:00 Intake & Output 01/09/20 01/10/20 01/10/20 18:59 06:59 18:59 Other: Voiding Method Toilet Toilet # Voids 1 2 - Exam The patient appeared well nourished and normally developed. Vital signs as documented. Head exam is unremarkable. No scleral icterus or corneal arcus noted. Neck is without jugular venous distension, thyromegaly, or carotid bruits. Carotid upstrokes are brisk bilaterally. Lungs are clear to auscultation and percussion. Cardiac exam reveals the PMI to be normally sized and situated. Rhythm is regular. First and second heart sounds normal. No murmurs, rubs or gallops. Abdominal exam reveals normal bowel sounds, no masses, no organomegaly and no aortic enlargement. Extremities are nonedematous and both femoral and pedal pulses are normal. - Labs CBC & Chem 7: 01/10/20 07:14 01/10/20 07:14 Labs: Abnormal Lab Results - Last 24 Hours (Table) 01/10/20 01/10/20 Range/Units 07:14 07:14 MCHC 30.8 L (31.0-37.0) g/dL RDW 16.3 H (11.5-15.5) % Sodium 132 L (137-145) mmol/L Carbon Dioxide 19 L (22-30) mmol/L BUN 26 H (7-17) mg/dL Creatinine 2.06 H (0.52-1.04) mg/dL Glucose 105 H (74-99) mg/dL Calcium 8.3 L (8.4-10.2) mg/dL Total Protein 5.1 L (6.3-8.2) g/dL Albumin 2.4 L (3.5-5.0) g/dL Assessment and Plan Assessment: Assessment and Recommendations: Normocytic Anemia: - Likely multifactorial with known CKD stage 3 (looks like steadily worsening since 04/2019), nutritional deficiencies as a likely contributing factor (underweight), chronic inflammation. - Will check Iron, B12 and erythropoetin as well as retic, LDH - Monitor CBC, ccurrent hemoglobin is 10. Normal WBC count and platelets. Transfuse if less than 7. - hemoglobin improved to 11.6. Platelets normal. Increasing pulmonary Nodule: - Unknown etiology - Defer biopsy for tissue path to pulmonary . - Consideration of outpatient PET scan and biopsy accordingly. Fecal Stasis/ileus: - Gen Surgery is following - Abdominal discomfort. Hx: DVT - Continued on Eliquis Atrial Fib/CAD/RCA Stent: - Continued on Eliquis ALBERT/CKD: - Per Primary/Nephrology Teams Hx: DVT Multiple Co-Morbidities: - Per Primary Team Thank you we will follow along with you Patient's questions answered and understanding stated. Thank you for allowing us to participate in the care of your patient. Please feel free to call us with any questions. Filemon Azar MD Hematology Oncology [id number], [address] [place] [address] Office: [phone],
--- NOTE | 2020-01-10 17:13 | CT ---
EXAMINATION TYPE: CT abdomen pelvis wo con DATE OF EXAM: 01/10/2020 COMPARISON: 01/05/2020 HISTORY: Abdominal pain. CT DLP: 280.3 mGycm Automated exposure control for dose reduction was used. TECHNIQUE: Helical acquisition of images was performed from the lung bases through the pelvis. FINDINGS: Again the exam is markedly limited secondary to lack of intravenous contrast, possibility o f bowel gas, ascites, anasarca. LUNG BASES: Moderate emphysematous changes of the lung bases and descending thoracic aorta as seen on the prior of 01/05/2020. New small pleural effusions are partially visualized. LIVER/GB: Perihepatic ascites noted. Gallbladder tract in or surgically absent. The previously seen c ommon bile duct is now poorly visualized. PANCREAS: Again nondiagnostic exam of the pancreas. SPLEEN: No splenomegaly. Punctate benign granuloma. Perisplenic ascites. ADRENALS: Difficult to separate given the ascites and lack of intravenous contrast. Nondiagnostic. KIDNEYS: Renal artery atherosclerosis seen. Mild new right hydronephrosis predominantly of the inferi or calyces such as on image 31. FREE AIR: No free air is visualized ADENOPATHY: Nondiagnostic given the limiting factors. OSSEOUS STRUCTURES: Diffuse osseous demineralization. Avascular necrosis of the hips. Moderate degen erative change of the spine. BOWEL: No dilated large or small bowel. Air degree colonic fecal stasis. Oral contrast does not reac h the level of the colon in the colon is suboptimally evaluated. OTHER: Mesenteric edema is likely from fluid overload. Overall small volume ascites. Extensive atherosclerosis of the abdominal aorta and its branches is again seen with tortuosity and a ortoiliac stent graft. This again is severely limited in evaluation without contrast. Similar caliber to the prior of 01/05/2020. IMPRESSION: Again the exam is markedly limited given lack of intravenous contrast, ascites, anasarca, mesenteric edema, cachexia, and posterior intra-abdominal fat. 1. Mild new right hydronephrosis without etiology of the obstructing process seen on CT. 2. New small pleural effusions. Abdominal ascites, small volume overall. Mesenteric edema likely from fluid overload. 3. Marked degree colonic fecal stasis. 4. Severe atherosclerosis of the abdominal aorta and aneurysm with vascular stent graft. Grossly swapna lar in size to the prior 01/05/2020. 5. Avascular necrosis of the hips. 6. Previously seen enlarged common bile duct is poorly visualized on today's exam.
[2020-01-10] MEDS: LEVOFLOXACIN 250 MG TAB PO SCH (17:21)
[2020-01-10] MEDS: SODIUM BICARBONATE TAB 650 MG TAB PO SCH ×2 (17:21→20:06)
[2020-01-10] MEDS: LACTULOSE 20 GM/30 ML CUP PO SCH ×2 (17:22→20:07)
[2020-01-10] MEDS: MIRTAZAPINE 15 MG TAB PO SCH (20:05)
[2020-01-10] MEDS: PRAMIPEXOLE 0.125 MG TAB PO SCH (20:05)
[2020-01-10] MEDS: SENNOSIDES 8.6 MG TAB PO SCH (20:06)
[2020-01-10] MEDS: ALPRAZolam 1 MG TAB PO PRN (21:50)
[2020-01-11] MEDS: oxyCODONE-APAP 5-325MG 1 EACH TAB PO PRN (02:34)
[2020-01-11] MEDS: LEVOTHYROXINE 50 MCG TAB PO SCH (05:51)
[2020-01-11] MEDS: IPRATROPIUM 0.5 MG/2.5 ML NEBU INHALATION SCH ×3 (07:41→15:30)
[2020-01-11] MEDS: APIXABAN 2.5 MG TABLET PO SCH (08:29)
[2020-01-11] MEDS: SODIUM BICARBONATE TAB 650 MG TAB PO SCH (08:29)
[2020-01-11] MEDS: hydrALAZINE HCL 50 MG TAB PO SCH (08:29)
[2020-01-11] MEDS: DULoxetine HCL 60 MG CAPSULE.DR PO SCH (08:30)
[2020-01-11] MEDS: amLODIPine 5 MG TAB PO SCH (08:30)
[2020-01-11] MEDS: metroNIDAZOLE 250 MG TABLET PO SCH ×2 (08:30→15:21)
[2020-01-11] MEDS: TROSPIUM CHLORIDE 20 MG TABLET PO SCH (08:30)
[2020-01-11] MEDS: PANTOPRAZOLE 40 MG TABLET PO SCH ×2 (08:30→16:46)
[2020-01-11] MEDS: CARVEDILOL 6.25 MG TAB PO SCH ×2 (08:30→16:47)
[2020-01-11] MEDS: SENNOSIDES 8.6 MG TAB PO SCH (08:30)
[2020-01-11] MEDS: LACTULOSE 20 GM/30 ML CUP PO SCH ×2 (08:31→10:28)
[2020-01-11 09:25] LABS: Magnesium 1.7 mg/dL (1.6-2.3); Potassium 3.4 mmol/L (3.5-5.1)
[2020-01-11] MEDS: POTASSIUM CHLORIDE ER 20 MEQ TAB.ER PO SCH ×2 (09:39→10:29)
--- NOTE | 2020-01-11 09:47 | P.DS ---
Providers Date of admission: 01/05/20 13:18 Attending physician: Jose Weiss Consults: 01/05/20 13:19 Consult Physician Routine Consulting Provider: Koffi Moy Consult Reason/Comments: prolonged qt Do you want consulting provider notified?: Yes 01/06/20 09:54 Consult Physician Routine Consulting Provider: Darius Milligan Consult Reason/Comments: GB disease, diverticulitis Do you want consulting provider notified?: Yes 01/07/20 10:37 Consult Physician Routine Consulting Provider: Black Nielsen Consult Reason/Comments: weight loss and chronic abd pain Do you want consulting provider notified?: Yes 01/08/20 11:28 Consult Physician Routine Consulting Provider: Dinesh Petersen Consult Reason/Comments: ?? Lung Mass Do you want consulting provider notified?: Yes 01/10/20 10:19 Consult Physician Routine Consulting Provider: Dre Horton Consult Reason/Comments: Hypokalemia Do you want consulting provider notified?: Yes Primary care physician: [facility] Course: Principal diagnosis: Acute kidney injury, elixir slight abnormality, acute diverticulitis, QT prolongation, significant weight loss, history of very day and the strep bactere ant from endovascular infection, lower back pain, A. fib with RVR, history of hep C, abdominal aortic aneurysm post endovascular stent, restless leg syndrome, generalized anxiety, pulmonary nodular with possible mass, advanced COPD and atherosclerotic heart disease. This is a 68-year-old female one of Dr. Colbert patient with past medical history of hepatitis C post the Harvoni therapy, history of CAD with non-ST elevated myocardial infarction in April 2017 status post heart catheterization and stenting of the RCA with heavily calcified right and left coronary systems and recommendations to maximize medical treatment, COPD, asthma, chronic hypoxic respiratory failure on home O2 at 3 L nasal cannula, previous history of DVT along with Takosubu syndrome, GI bleed (April 2016), chronic kidney disease III, multiple admissions for failure to thrive and chronic abdominal pain. 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 Islas at that time. History of carotid stenosis and aortic aneurysm followed by Dr. Costa. Patient complains of weakness for 10 d ays and gradually worsening. Weakness is continued to worsen she is unable to get out of bed or ambulate with a walker. Patient complains of nausea. She complains of pain in her abdomen and her lower back area. No diarrhea. Abdominal pain is in the left lower quadrant. Patient was afebrile, heart rate 75, blood pressure 140/82, pulse ox 90% on room air. Hemoglobin 10.9, WBC 7.9, platelet count 261. Sodium 133, potassium 2.9, chloride 101, CO2 24, BUN 35 and creatinine 2.85, blood sugar 131. Liver function tests within normal limits. Lactic acid 1.7. CAT scan of the abdomen and pelvis without contrast revealed dilated common bile duct. Correlate with lab values and HIDA scan if concern for acute cholecystitis. Ultrasound is unlikely to be beneficial due to adjacent bowel loops. Moderate degree of colonic fecal stasis and feelings dilated fluid-filled small bowel in the right abdomen. Findings favor ileus. Avascular necrosis of the hips. Patient received a dose of ceftriaxone and Flagyl, 1 L of IV fluids. Patient admitted to the [facility] floor and consult requested with cardiology for prolonged QT. Coronavirus testing in process. Patient is currently smoking half a pack per day. She utilizes oxygen at bedtime only. She has nebulizer. 01/05: The patient has been seen by computer numeric control setter for QT prolongation. The most likely due to hypokalemia and okay to continue Levaquin and hold Cymbalta for 48 hours. We will plan to add in general surgery and patient would like Dr. Milligan. Ultrasound of the abdomen to evaluate cholecystitis added. Patient continues to have abdominal pain which is in the left lower quadrant at this time. Patient is been afebrile, heart rate 74, blood pressure 121/50, pulse ox 99% on room air. Repeat WBC 8, hemoglobin 9.7, BUN 34 and creatinine 2.4. 01/06: Abdominal ultrasound revealed dilated common bile duct at 1 cm. Right upper quadrant ultrasound otherwise unremarkable. Patient has been seen by general surgery and magnesium citrate was ordered. Today patient's abdominal pain is improved. She did have magnesium citrate yesterday and had diarrhea during the night. Patient has been afebrile, heart rate 58, blood pressure 155/72 and pulse ox 97% on room air. Overall, abdominal pain seems to be improving. Discussed patient's chronic weight loss and malnutrition. No underlying cause has been identified. Remeron will be added and consult with Dr. Nielsen. 01/07: Patient was seen general surgery no finding consistent with any intervention, also continue to have significant weight loss was seen oncology review all her testing there is a small nodular and along once to investigate further by pulmonary for possible bronchoscopy and biopsy also gastrointestinal finding with testing might be a possibility but colonoscopy was done not too long ago. In the meanwhile her acute kidney injury and electrolyte imbalance are a lot better at this point. We'll consult pulmonary if no intervention required patient might be able to go home tomorrow day after tomorrow continue titrate nutrition and supportive care, patient still and bleeding with the use of walker but refuses going to rehab. 01/08: Patient is more stable today except continue to complain of abdominal pain with nausea has not tolerate her food this morning. Patient was seen pulmonary review her films no planning to have Dr. Petersen see her as an outpatient and order PET scan as an outpatient for further management if needed. Further adjustment of medication including her antidepression and incontinence medication was done today patient is on pantoprazole twice a day as well continue Julien if she stable tomorrow might be able to send her home and follow the rest as an outpatient. As of now there is no sign of CVA found anywhere so far. 01/09: Patient continued to have significant abdominal pain with severe constipation also continue to have hypokalemia her QT interval slightly but better with cardiology. With the adjustment of medication patient still not doing well physically and psychologically will continue PTOT and delinquency prevention social worker for possible rehab tomorrow. The meanwhile more adjustment for medication and patient will be going for another CAT scan of the abdomen and pelvis specially with the worsening not clear pain so far. Objective - Vital Signs Vital signs: Vital Signs Temp 97.8 F 01/10/20 02:20 Pulse 85 01/10/20 04:18 Resp 16 01/10/20 02:20 BP 145/75 01/10/20 04:18 Pulse Ox 97 01/10/20 02:20 Intake & Output 01/09/20 01/10/20 01/10/20 18:59 06:59 18:59 Other: Voiding Method Toilet Toilet # Voids 1 2 - Exam Review of Systems Constitutional: Reports anorexia, Reports fatigue, Reports lethargy, Reports malaise, Reports poor appetite, Reports weakness, Reports weight loss, Denies chills, Denies fever Ears, nose, mouth and throat: Denies dysphagia, Denies headache, Denies nasal congestion, Denies nasal discharge, Denies sore throat, Denies vertigo Cardiovascular: Denies chest pain, Denies decreased exercise tolerance, Denies dyspnea on exertion, Denies edema, Denies leg edema, Denies lightheadedness, Denies shortness of breath, Denies syncope Respiratory: Denies cough, Denies cough with sputum, Denies dyspnea, Denies excessive sputum, Denies hemoptysis, Denies home oxygen, Denies respiratory infections, Denies wheezing Gastrointestinal: Reports abdominal pain, denies nausea, Denies constipation, Denies diarrhea, Denies loss of appetite, Denies vomiting Genitourinary: Denies dysuria, Denies hematuria, Denies urgency, Denies urinary frequency Menstruation: Reports postmenopausal Musculoskeletal: Reports gait dysfunction, Reports muscle weakness, Denies frequent falls, Denies myalgias Integumentary: Denies pruritus, Denies rash, Denies wounds Neurological: Denies change in mentation, Denies change in speech, Denies numbness, Denies seizures, Denies weakness Psychiatric: Denies anxiety, Denies depression Endocrine: Denies fatigue, Denies weight change Physical Examination: - Constitutional General appearance: cooperative, in no acute distress, frail appearing - EENT Eyes: anicteric sclerae, PERRLA, normal appearance ENT: hearing grossly normal NG tube with bile-colored return. - Neck Neck: no lymphadenopathy, normal ROM, no other, no rigidity, no stridor, no thyromegaly - Respiratory Respiratory: bilateral: CTA, negative: diminished, dullness, rales, rhonchi - Cardiovascular Rhythm: regular Heart sounds: normal: S1, S2 Abnormal Heart Sounds: no systolic murmur, no diastolic murmur, no rub, no S3 Gallop, no S4 Gallop, no click, no other - Gastrointestinal General gastrointestinal: normal bowel sounds, soft, very mild generalized tenderness. - Integumentary Integumentary: no rash - Neurologic Neurologic: CNII-XII intact - Musculoskeletal Musculoskeletal: gait normal, strength equal bilaterally - Psychiatric Psychiatric: A&O x's 3, appropriate affect - Labs CBC & Chem 7: 01/10/20 07:14 01/10/20 07:14 Labs: Abnormal Lab Results - Last 24 Hours (Table) 01/09/20 01/10/20 01/10/20 Range/Units 07:42 07:14 07:14 MCHC 30.8 L (31.0-37.0) g/dL RDW 16.3 H (11.5-15.5) % Sodium 135 L 132 L (137-145) mmol/L Chloride 108 H (98-107) mmol/L Carbon Dioxide 19 L (22-30) mmol/L BUN 24 H 26 H (7-17) mg/dL Creatinine 2.13 H 2.06 H (0.52-1.04) mg/dL Glucose 142 H 105 H (74-99) mg/dL Calcium 8.2 L 8.3 L (8.4-10.2) mg/dL Total Protein 5.3 L 5.1 L (6.3-8.2) g/dL Albumin 2.5 L 2.4 L (3.5-5.0) g/dL Assessment and Plan Assessment: 1 acute kidney injury: With stage III chronic kidney disease, continue hydration patient creatinine is much better so far. 2 acute diverticulitis: Remain on Levaquin and Flagyl switch medication to oral doing much better. Decrease Flagyl 250 mg 3 times a day. Continue to have significant pain will be doing another CAT scan today and continue on better regime for her stool impaction see if it improved. 3 QT prolongation secondary to hypokalemia, still seen cardiology Cymbalta was held for 48 hours and Levaquin was continue patient EKG was normalized. 4 significant weight loss and possible cancer: No finding consistent with any abnormality with ultrasound and CAT scan, oncology consult was done patient might have to have biopsy from one of the lung nodular we'll consult pulmonary this point. GI study are up-to-date so far. No finding and all testing pulmonary had review of film will have PET scan as an outpatient. 5 hypokalemia: Consult nephrology and continue on 20 mEq of potassium chloride daily from now on. 6 history of very dense strep bacteremia secondary to endovascular infection has improved was treated. 7 chronic history of atherosclerotic heart disease: Still seeing cardiology has been on amlodipine and diastolic no chest pain or angina. 8 chronic history of COPD: Remain on MDI inhaler. 9 chronic history of smoking with smoking cessation was addressed on nicotine patch. 10 chronic history of restless leg syndrome has been on Mirapex 0.125 g at the time. 11 severe protein calorie malnutrition continue diet continue dietitian recommendation and remain on Remeron. 12 debility: Continue PTOT patient can benefit from rehab she had refused at this point. 13 depression: Titrate Cymbalta to 60 mg twice a day as before her hospitalization. CODE STATUS: Full code. Discharge planning: Even though patient will still require PET scan and further testing with pulmonary patient is not in any physical condition to be able to go home most likely will be going to long term rehab and follow the rest of her testing as an outpatient with pulmonary and oncology. Patient Condition at Discharge: Fair Plan - Discharge Summary Discharge Rx Participant: No New Discharge Prescriptions: New hydrALAZINE HCL [Apresoline] 50 mg PO BID #60 tab Carvedilol [Coreg] 6.25 mg PO BID-W/MEALS #60 tab metroNIDAZOLE [Flagyl] 250 mg PO Q8H #15 tablet Potassium Chloride ER [K-Dur 20] 20 meq PO Q1HR #30 tab.er.prt Levofloxacin [Levaquin] 250 mg PO DAILY@1600 #5 tab amLODIPine [Norvasc] 5 mg PO BID tab Mirtazapine [Remeron] 7.5 mg PO HS #30 tab Sodium Bicarbonate Tab 650 mg PO BID #60 tab Acetaminophen Tab [Tylenol] 650 mg PO Q6HR PRN tab PRN Reason: Mild Pain Or Fever > 100.5 Continue Apixaban [Eliquis] 2.5 mg PO BID #60 tablet Pramipexole [Mirapex] 0.125 mg PO HS Fesoterodine Fumarate [Toviaz] 8 mg PO DAILY DULoxetine HCL [Cymbalta] 60 mg PO BID Dicyclomine [Bentyl] 20 mg PO TID PRN PRN Reason: stomach cramping Dexlansoprazole [Dexilant] 60 mg PO DAILY Levothyroxine Sodium [Synthroid] 50 mcg PO DAILY Aspirin 81 mg PO DAILY Tiotropium [place] [Spiriva Respimat] 8 gm INHALATION RT-BID ALPRAZolam [Xanax] 1 mg PO BID PRN PRN Reason: Anxiety Discontinued Nebivolol [Bystolic] 5 mg PO BID tab amLODIPine [Norvasc] 5 mg PO DAILY Discharge Medication List Apixaban [Eliquis] 2.5 mg PO BID #60 tablet 03/02/19 [Rx] DULoxetine HCL [Cymbalta] 60 mg PO BID 09/28/19 [History] Fesoterodine Fumarate [Toviaz] 8 mg PO DAILY 09/28/19 [History] Pramipexole [Mirapex] 0.125 mg PO HS 09/28/19 [History] ALPRAZolam [Xanax] 1 mg PO BID PRN 01/05/20 [History] Aspirin 81 mg PO DAILY 01/05/20 [History] Dexlansoprazole [Dexilant] 60 mg PO DAILY 01/05/20 [History] Dicyclomine [Bentyl] 20 mg PO TID PRN 01/05/20 [History] Levothyroxine Sodium [Synthroid] 50 mcg PO DAILY 01/05/20 [History] Tiotropium [place] [Spiriva Respimat] 8 gm INHALATION RT-BID 01/05/20 [History] Acetaminophen Tab [Tylenol] 650 mg PO Q6HR PRN tab 01/11/20 [Rx] Carvedilol [Coreg] 6.25 mg PO BID-W/MEALS #60 tab 01/11/20 [Rx] Levofloxacin [Levaquin] 250 mg PO DAILY@1600 #5 tab 01/11/20 [Rx] Mirtazapine [Remeron] 7.5 mg PO HS #30 tab 01/11/20 [Rx] Potassium Chloride ER [K-Dur 20] 20 meq PO Q1HR #30 tab.er.prt 01/11/20 [Rx] Sodium Bicarbonate Tab 650 mg PO BID #60 tab 01/11/20 [Rx] amLODIPine [Norvasc] 5 mg PO BID tab 01/11/20 [Rx] hydrALAZINE HCL [Apresoline] 50 mg PO BID #60 tab 01/11/20 [Rx] metroNIDAZOLE [Flagyl] 250 mg PO Q8H #15 tablet 01/11/20 [Rx] Follow up Appointment(s)/Referral(s): Jenaro Colbert DO [Primary Care Provider] - 1-2 days [facility] Vis[facility] Nurse, [NON-STAFF] - Dre Horton DO [STAFF PHYSICIAN] - 1 Week Dinesh Petersen MD [STAFF PHYSICIAN] - 1 Week Discharge Disposition: HOME WITH HOME HEALTH SERVICES
--- NOTE | 2020-01-11 10:13 | P.PN ---
Subjective Progress Note Date: 01/11/20 Principal diagnosis: Abdominal pain, back pain This is a very pleasant 69-year-old female patient who follows with Dr. Colbert as her primary care provider. She has a history of coronary artery disease with previous stent placement to the RCA, Tako Subu syndrome, hepatitis C status post Harvoni therapy, GI bleed, chronic kidney disease stage III, chronic abdominal pain, failure to thrive with malnutrition, aortic aneurysm graft and stent complicated by strep viridans bacteremia, carotid stenosis, avascular necrosis of the bilateral hips, chronic obstructive pulmonary disease with FEV1 value 85% of predicted in 2017. Chronic and ongoing tobacco dependence. She was last seen by Dr. Petersen in our office in 2018. She presented here to the emergency room on 01/05/2020 with a ten-day history of progressive weakness. She was even having difficulty getting out of bed and ambulating with her walker. She was having abdominal discomfort. Computed tomography scan of the abdomen revealed dilated, mild duct with possibly acute cholecystitis, moderate degree of colonic fecal stasis and dilated loops of the small bowel favoring ileus. A computed tomography scan of the chest revealed a posterior right apical band of thickening that was slightly increased in size compared to January 2019. There is extensive emphysematous changes as well. We are consulted for the same. She is seen today in consultation on the regular medical floor. She is awake and alert in no acute distress. Currently resting comfortably in bed. No worsening shortness of breath, cough or congestion. She is maintaining O2 saturations up to 100% on room air. She's been afebrile. White count 6.6. Hemoglobin 10.0. Sodium 139. Potassium 4.1. Creatinine 1.96. Patient is seen today 01/09/2020 in follow-up on the regular medical floor. She is awake and alert in no acute distress. Resting fairly comfortably in bed. No complaints of shortness of breath, cough or congestion. Maintaining O2 saturations up to 100% on room air. She's been afebrile. Hemodynamically stable. White count 9.0. Hemoglobin 11.4. Sodium 135. Potassium 3.8. Creatinine 2.13. She remains on Levaquin and Flagyl. Surgery is on the case and feel the colitis is resolving. No plans for surgical intervention at this point. The patient is seen today 01/10/2020 and follow-up on the regular medical floor. She remains awake and alert in no acute distress. No shortness of breath, cough or congestion. Maintaining O2 saturation in the mid 90s on room air. Afebrile. White count 10.4. Hemoglobin 11.6. Sodium 132. Potassium 3.5. Creatinine 2.06. Ultrasound of the kidneys revealed no evidence of hydronephrosis. A repeat computed tomography scan of the abdomen is pending. the patient is seen today Jan 11 2020 in follow-up on the regular medical floor. She is awake and alert in no acute distress. She denies any worsening shortness of breath, cough or congestion. She is maintaining O2 saturation in the 90s on room air. She's been afebrile. Hemodynamically stable. Her abdominal discomfort is improved as well. sodium 133. Potassium 3.4. Bicarb 22. Creatinine 2.21. she remains on Levaquin and Flagyl. Remains anticoagulated on Eliquis. Objective - Vital Signs Vital signs: Vital Signs Temp 98.3 F 01/11/20 07:15 Pulse 80 01/11/20 07:49 Resp 17 01/11/20 07:15 BP 144/67 01/11/20 07:15 Pulse Ox 93 L 01/11/20 07:15 Intake & Output 01/10/20 01/11/20 01/11/20 18:59 06:59 18:59 Intake Total 100 1300 100 Output Total 1 2 Balance 100 1299 98 Intake: Intake, IV Titration 1300 Amount Sodium Chloride 0.9% 1, 1300 000 ml @ 50 mls/hr IV . Q20H [facility] Rx#:[id number] Oral 100 0 100 Output: Stool 1 2 Other: Voiding Method Bedside Commode Bedside Commode # Voids 2 1 1 # Bowel Movements 2 2 - Exam GENERAL EXAM: Alert, frail cachectic 69-year-old female patient, on room air with saturation up to 95%, comfortable in no apparent distress. HEAD: Normocephalic. EYES: Normal reaction of pupils, equal size. NOSE: Clear with pink turbinates. THROAT: No erythema or exudates. NECK: No masses, no JVD. CHEST: No chest wall deformity. LUNGS: Equal air entry with no crackles, wheeze, rhonchi or dullness. Diminished. CVS: S1 and S2 normal with no audible murmur, regular rhythm. ABDOMEN: No hepatosplenomegaly, normal bowel sounds, no guarding or rigidity. SPINE: Kyphoscoliosis SKIN: No rashes CENTRAL NERVOUS SYSTEM: No focal deficits, tone is normal in all 4 extremities. EXTREMITIES: There is no peripheral edema. No clubbing, no cyanosis. Peripheral pulses are intact. - Labs CBC & Chem 7: 01/10/20 07:14 01/11/20 08:12 Labs: Abnormal Lab Results - Last 24 Hours (Table) 01/11/20 Range/Units 08:12 Sodium 133 L (137-145) mmol/L Potassium 3.4 L (3.5-5.1) mmol/L BUN 25 H (7-17) mg/dL Creatinine 2.21 H (0.52-1.04) mg/dL Calcium 8.0 L (8.4-10.2) mg/dL Assessment and Plan Assessment: 1 Abdominal pain secondary to constipation and suspected colitis, computed tomography scan revealed markedly degree of colonic fecal stasis 2 Ongoing weight loss with protein calorie malnutrition with failure to thrive 3 Posterior right apical band of thickening with slight increase compared to January 2019 4 Chronic obstructive pulmonary disease with extensive emphysematous changes on computed tomography scan 5 Chronic and ongoing tobacco dependence 6 History of coronary artery disease with previous stent placement 7 History of chronic anxiety 8 History of hepatitis C, treated with Harvoni 9 Abdominal aortic aneurysm with previous endovascular stent grafting and subsequent infection secondary to strep viridans bacteremia 10 Hyperlipidemia 11 Avascular necrosis of the bilateral hips 12 Acute kidney injury most likely prerenal improved with hydration. Ultrasound of the kidneys revealed no evidence of hydronephrosis. Plan: The patient was seen and evaluated by Dr. Liu She remains stable from the pulmonary standpoint Follow up with Dr. Petersen in our office regarding the right apical band of thickening Home once cleared by medical and surgical services I, the cosigning physician, performed a history & physical examination of the patient. Lungs sounds are clear, diminished. Maintaining good O2 saturations in the 90s on room air. I discussed the assessment and plan of care with my nurse practitioner, Kourtney Menchaca. I attest to the above note as dictated by her.
[2020-01-11] MEDS: SODIUM CHLORIDE 0.9% 1,000 ML IV SCH (10:28)
[2020-01-11 12:00] LABS: Creatinine,Urine Random 47.7 mg/dL
[2020-01-11 12:14] LABS: Total Protein,Urine Random >600 mg/dL (<12)
--- NOTE | 2020-01-11 13:03 | P.PN ---
Subjective Progress Note Date: 01/11/20 CHIEF COMPLAINT: Gallbladder disease, diverticulitis HISTORY OF PRESENT ILLNESS: Patient examined at the bedside with Dr. Milligan. She is tolerating diet. Denies nausea or vomiting. PHYSICAL EXAM: VITAL SIGNS: Reviewed. GENERAL: Well-developed in no acute distress. HEENT: No sclera icterus. Extraocular movements grossly intact. Moist buccal mucosa. Head is atraumatic, normocephalic. ABDOMEN: Soft. Nondistended. Nontender. NEUROLOGIC: Alert and oriented. Cranial nerves II through XII grossly intact. ASSESSMENT: 1. Abdominal pain 2. Possible mild colitis transverse colon 3. Dilated common bile duct in a patient with history of laparoscopic cholecystectomy, 2018 4. Fecal stasis PLAN: -Continue diet as tolerated -Dr. Milligan reviewed repeat CAT scan. No surgical intervention recommended -Stable for discharge from a surgical standpoint. Defer to internal medicine Nurse practitioner note has been reviewed by physician. Signing provider agrees with the documented findings, assessment, and plan of care. Objective - Vital Signs Vital signs: Vital Signs Temp 98.3 F 01/11/20 07:15 Pulse 80 01/11/20 07:49 Resp 17 01/11/20 07:15 BP 144/67 01/11/20 07:15 Pulse Ox 93 L 01/11/20 07:15 Intake & Output 01/10/20 01/11/20 01/11/20 18:59 06:59 18:59 Intake Total 100 1300 100 Output Total 1 2 Balance 100 1299 98 Intake: Intake, IV Titration 1300 Amount Sodium Chloride 0.9% 1, 1300 000 ml @ 50 mls/hr IV . Q20H [facility] Rx#:[id number] Oral 100 0 100 Output: Stool 1 2 Other: Voiding Method Bedside Commode Bedside Commode # Voids 2 1 1 # Bowel Movements 2 2 - Labs CBC & Chem 7: 01/10/20 07:14 01/11/20 08:12 Labs: Abnormal Lab Results - Last 24 Hours (Table) 01/11/20 01/11/20 Range/Units 08:12 11:30 Sodium 133 L (137-145) mmol/L Potassium 3.4 L (3.5-5.1) mmol/L BUN 25 H (7-17) mg/dL Creatinine 2.21 H (0.52-1.04) mg/dL Calcium 8.0 L (8.4-10.2) mg/dL U Random Total Protein >600 H (<12) mg/dL
[2020-01-11 13:13] LABS: Anti-DNA, DS unit <1.0 IU/mL; DNA Double-Stranded NEGATIVE (NEGATIVE)
--- NOTE | 2020-01-11 14:19 | P.PN ---
Subjective Patient is seen in follow-up for acute kidney injury on chronic kidney disease. Renal function stable. Creatinine 2.1 today. She has been voiding. No vomiting or diarrhea. Denies abdominal pain at this time. Vital signs are stable. General: The patient appeared well nourished and normally developed. HEENT: Head exam is unremarkable. Neck is without jugular venous distension. LUNGS: Lungs are clear to auscultation and percussion. Breath sounds decreased. HEART: Rate and Rhythm are regular. ABDOMEN: Soft, nontender. EXTREMITITES: No clubbing, cyanosis, or edema. Objective - Vital Signs Vital signs: Vital Signs Temp 98.3 F 01/11/20 07:15 Pulse 80 01/11/20 07:49 Resp 17 01/11/20 07:15 BP 144/67 01/11/20 07:15 Pulse Ox 93 L 01/11/20 07:15 Intake & Output 01/10/20 01/11/20 01/11/20 18:59 06:59 18:59 Intake Total 100 1300 100 Output Total 1 2 Balance 100 1299 98 Intake: Intake, IV Titration 1300 Amount Sodium Chloride 0.9% 1, 1300 000 ml @ 50 mls/hr IV . Q20H [facility] Rx#:[id number] Oral 100 0 100 Output: Stool 1 2 Other: Voiding Method Bedside Commode Bedside Commode # Voids 2 1 1 # Bowel Movements 2 2 - Labs CBC & Chem 7: 01/10/20 07:14 01/11/20 08:12 Labs: Abnormal Lab Results - Last 24 Hours (Table) 01/11/20 01/11/20 Range/Units 08:12 11:30 Sodium 133 L (137-145) mmol/L Potassium 3.4 L (3.5-5.1) mmol/L BUN 25 H (7-17) mg/dL Creatinine 2.21 H (0.52-1.04) mg/dL Calcium 8.0 L (8.4-10.2) mg/dL U Random Total Protein >600 H (<12) mg/dL Assessment and Plan Plan: Assessment: 1. Acute kidney injury mostly prerenal improved with IV hydration. Creatinine was 2.85 on admission. Fairly stable at 2.2 today. She does have significant proteinuria on UA. No evidence of hydronephrosis noted on kidney ultrasound. 2. Chronic kidney disease stage III. Patient's creatinine from April through June 2019 was 1.3-1.5. CAT scan of the abdomen and pelvis revealed no hydronephrosis but left renal atrophy was noted. 3. Hyponatremia secondary to acute kidney injury and poor solute intake. Better. 4. Colitis. Surgery following. No plans for surgical intervention at this time. 5. Constipation. Improved. 6. Hypertension with chronic kidney disease. Stable. 7. History of hep C status post treatment. 8. Metabolic acidosis secondary to acute kidney injury. Better. Maintained on oral sodium bicarbonate. 9. Hypokalemia from poor intake s/p replacement. Magnesium normal. Plan: Encouraged oral intake. Follow-up serologies - DIANA and double-stranded DNA antibody negative. Avoid nephrotoxins. Discontinued Fleet enemas. 1500 mL fluid restriction. Patient will need to follow up outpatient in 1-2 weeks for CKD care. Follow-up on pending serologies. Will also need kidney biopsy for definitive diagnosis.
[2020-01-11] MEDS: LEVOFLOXACIN 250 MG TAB PO SCH (15:21)
[2020-01-11 16:13] VITALS: BP 123/70; PULSE 82; RESP 16; TEMP 97.7
[2020-01-12 11:17] LABS: Complement C3 87.8 mg/dL (80.0-207.0)
[2020-01-12 14:47] LABS: C-ANCA <1:20 Titer (<1:20)
[2020-01-12 15:18] LABS: Albumin 2.36 g/dL (3.80-4.90); Gamma Globulin 0.66 g/dL (0.70-1.50)
[2020-01-13 00:11] LABS: Hepatitis A Antibody IgM Non-Reactive (Non-Reactive); Hepatitis B Core IgM Non-Reactive (Non-Reactive); Hepatitis B Surface Antigen Non-Reactive (Non-Reactive); Hepatitis C IgG Antibody Reactive (Non-Reactive)
[2020-01-13] MEDS ORDERED: LEVOFLOXACIN 250 MG TAB PO SCH (16:00)
== END 2020-01-11 18:00 | disposition home health service (06) | DRG 682 ==
LOC: EC 10:44 → 4SSUR 13:18
PROVIDERS: ADMIT Internal Medicine Geriatric Medicine; ATTEND Internal Medicine Geriatric Medicine
DX: N17.9 Acute kidney failure, unspecified (principal); E43 Unspecified severe protein-calorie malnutrition; M87.9 Osteonecrosis, unspecified; Z68.1 Body mass index [BMI] 19.9 or less, adult; E87.1 Hypo-osmolality and hyponatremia; E87.2 Acidosis; J96.11 Chronic respiratory failure with hypoxia; K56.7 Ileus, unspecified; K57.92 Diverticulitis of intestine, part unspecified, without perforation or abscess without bleeding; R62.7 Adult failure to thrive; N18.3 Chronic kidney disease, stage 3 (moderate); N32.81 Overactive bladder; R32 Unspecified urinary incontinence; R15.9 Full incontinence of feces; Z11.59 Encounter for screening for other viral diseases; Z86.19 Personal history of other infectious and parasitic diseases; D63.8 Anemia in other chronic diseases classified elsewhere; E78.5 Hyperlipidemia, unspecified; E83.42 Hypomagnesemia; E86.0 Dehydration; Z99.81 Dependence on supplemental oxygen; E87.6 Hypokalemia; I13.10 Hypertensive heart and chronic kidney disease without heart failure, with stage 1 through stage 4 chronic kidney disease, or unspecified chronic kidney disease; F17.210 Nicotine dependence, cigarettes, uncomplicated; F32.9 Major depressive disorder, single episode, unspecified; F41.0 Panic disorder [episodic paroxysmal anxiety]; F41.1 Generalized anxiety disorder; G25.81 Restless legs syndrome; G43.909 Migraine, unspecified, not intractable, without status migrainosus; G47.33 Obstructive sleep apnea (adult) (pediatric); Z99.89 Dependence on other enabling machines and devices; G89.29 Other chronic pain; I25.10 Atherosclerotic heart disease of native coronary artery without angina pectoris; I25.2 Old myocardial infarction; I48.0 Paroxysmal atrial fibrillation; Z86.79 Personal history of other diseases of the circulatory system; I73.9 Peripheral vascular disease, unspecified; J44.9 Chronic obstructive pulmonary disease, unspecified; K52.9 Noninfective gastroenteritis and colitis, unspecified; K56.41 Fecal impaction; K82.8 Other specified diseases of gallbladder; Z90.49 Acquired absence of other specified parts of digestive tract; K83.8 Other specified diseases of biliary tract; Z71.6 Tobacco abuse counseling; R53.81 Other malaise; Z87.01 Personal history of pneumonia (recurrent); Z88.5 Allergy status to narcotic agent; Z88.2 Allergy status to sulfonamides; Z88.6 Allergy status to analgesic agent; Z88.1 Allergy status to other antibiotic agents; Z91.030 Bee allergy status; Z91.041 Radiographic dye allergy status; Z91.040 Latex allergy status; R91.8 Other nonspecific abnormal finding of lung field; Z79.01 Long term (current) use of anticoagulants; I45.81 Long QT syndrome; M54.5 Low back pain; R13.10 Dysphagia, unspecified; Z82.5 Family history of asthma and other chronic lower respiratory diseases; Z83.79 Family history of other diseases of the digestive system; Z82.49 Family history of ischemic heart disease and other diseases of the circulatory system; G47.00 Insomnia, unspecified; Z79.82 Long term (current) use of aspirin; Z79.890 Hormone replacement therapy; Z79.899 Other long term (current) drug therapy; Z86.718 Personal history of other venous thrombosis and embolism; Z90.710 Acquired absence of both cervix and uterus; Z95.5 Presence of coronary angioplasty implant and graft
CPT/HCPCS: 36415; 71046; 71250; 74176; 76705; 76770; 80048; 80053; 80074; 81001; 82330; 82570; 82607; 82668; 82728; 82746; 82784; 83540; 83550; 83605; 83615; 83735; 83883; 83921; 83930; 83935; 84132; 84156; 84165; 84300; 84445; 85025; 85027; 85045; 85610; 85652; 85730; 86038; 86160; 86162; 86225; 86255; 86334; 86335; 87635; 93005; 94640; 96365; 96366; 96375; 99285

== ENCOUNTER 2020-01-18 16:21 | Inpatient (IN) | payer MEDICARE ==
[2020-01-18] MEDS ORDERED: ONDANSETRON 4 MG/2 ML VIAL IVP STA (16:40)
[2020-01-18] MEDS ORDERED: SODIUM CHLORIDE 0.9% 1,000 ML IV STA (16:40)
[2020-01-18] MEDS ORDERED: HYDROmorphone 0.5 MG/0.5 ML SYRINGE IVP STA (16:40)
--- NOTE | 2020-01-18 16:44 | ED ---
General Adult HPI - General Chief complaint: Abdominal Pain Stated complaint: abd pain Time Seen by Provider: 01/18/20 16:23 Source: patient, EMS, RN notes reviewed Mode of arrival: EMS Limitations: no limitations - History of Present Illness Initial comments: Patient is a pleasant 69-year-old female presenting to the emergency Department with complaints of abdominal discomfort. Onset of symptoms was 2-3 days ago. Patient has decreased appetite and nausea. No vomiting. Patient has mild chronic diarrhea that is unchanged. Discomfort is right lower abdomen. Discomfort is becoming severe. Patient does have history of chronic abdominal pain and previous diverticulitis. - Related Data Home Medications Medication Instructions Recorded Confirmed DULoxetine HCL [Cymbalta] 60 mg PO BID 09/28/19 01/05/20 Fesoterodine Fumarate [Toviaz] 8 mg PO DAILY 09/28/19 01/05/20 Pramipexole [Mirapex] 0.125 mg PO HS 09/28/19 01/05/20 ALPRAZolam [Xanax] 1 mg PO BID PRN 01/05/20 01/05/20 Aspirin 81 mg PO DAILY 01/05/20 01/05/20 Dexlansoprazole [Dexilant] 60 mg PO DAILY 01/05/20 01/05/20 Dicyclomine [Bentyl] 20 mg PO TID PRN 01/05/20 01/05/20 Levothyroxine Sodium [Synthroid] 50 mcg PO DAILY 01/05/20 01/05/20 Tiotropium [place] [Spiriva 8 gm INHALATION RT-BID 01/05/20 01/05/20 Respimat] Previous Rx's Medication Instructions Recorded Apixaban [Eliquis] 2.5 mg PO BID #60 tablet 03/02/19 Acetaminophen Tab [Tylenol] 650 mg PO Q6HR PRN tab 01/11/20 Carvedilol [Coreg] 6.25 mg PO BID-W/MEALS #60 tab 01/11/20 Levofloxacin [Levaquin] 250 mg PO DAILY@1600 #5 tab 01/11/20 Mirtazapine [Remeron] 7.5 mg PO HS #30 tab 01/11/20 Potassium Chloride ER [K-Dur 20] 20 meq PO Q1HR #30 tab.er.prt 01/11/20 Sodium Bicarbonate Tab 650 mg PO BID #60 tab 01/11/20 amLODIPine [Norvasc] 5 mg PO BID tab 01/11/20 hydrALAZINE HCL [Apresoline] 50 mg PO BID #60 tab 01/11/20 metroNIDAZOLE [Flagyl] 250 mg PO Q8H #15 tablet 01/11/20 Allergies Allergy/AdvReac Type Severity Reaction Status Date / Time naproxen sodium [From Aleve] Allergy Severe Anaphylaxis Verified 01/05/20 13:35 adhesive Allergy Rash/Hives Verified 01/05/20 13:35 clindamycin Allergy Anaphylaxis Verified 01/05/20 13:35 gentamicin [Gentamicin] Allergy SWELLING Verified 01/05/20 13:35 OF FACE W/ EYE DROPS latex Allergy Rash/Hives Verified 01/05/20 13:35 levothyroxine sodium Allergy Unknown Verified 01/05/20 13:35 [From Synthroid] losartan Allergy Unknown Verified 01/05/20 13:35 Penicillins Allergy Rash/Hives Verified 01/05/20 13:35 Sulfa (Sulfonamide Allergy Swelling Verified 01/05/20 13:35 Antibiotics) IN MOUTH sulfamethoxazole Allergy swelling Verified 01/05/20 13:35 [From Bactrim] tongue sulfanilamide Allergy Unknown Verified 01/05/20 13:35 trimethoprim [From Bactrim] Allergy Swelling Verified 01/05/20 13:35 venom-honey bee Allergy Dyspnea Verified 01/05/20 13:35 [bee venom (honey bee)] cinnamon [Cinnamon] AdvReac Dyspnea Verified 01/05/20 13:35 codeine AdvReac Nausea & Verified 01/05/20 13:35 Vomiting paola AdvReac Dyspnea Verified 01/05/20 13:35 Iodinated Contrast Media AdvReac Dyspnea Verified 01/05/20 13:35 [Iodinated Contrast- Oral and IV Dye] montelukast sodium AdvReac Wheezing Verified 01/05/20 13:35 [From Singulair] pantoprazole sodium AdvReac Abdominal Verified 01/05/20 13:35 [From Protonix] Pain red dye AdvReac Abdominal Verified 01/05/20 13:35 Pain BANDAIDS Allergy Rash/Hives Uncoded 01/05/20 13:36 Dye for gallbladder scan. Allergy Anaphylaxis Uncoded 01/05/20 13:36 tomatoes Allergy Abdominal Uncoded 01/05/20 13:36 Pain Review of Systems ROS Statement: Those systems with pertinent positive or pertinent negative responses have been documented in the HPI. ROS Other: All systems not noted in ROS Statement are negative. Constitutional: Denies: fever Eyes: Denies: eye pain ENT: Denies: ear pain Respiratory: Denies: cough Cardiovascular: Denies: chest pain Endocrine: Denies: fatigue Gastrointestinal: Reports: abdominal pain, nausea. Denies: vomiting Genitourinary: Denies: dysuria Skin: Denies: rash Neurological: Denies: weakness Past Medical History Past Medical History: Atrial Fibrillation, Asthma, Coronary Artery Disease (CAD), Chest Pain / Angina, COPD, Deep Vein Thrombosis (DVT), GERD/Reflux, GI Bleed, Hypertension, Liver Disease, Memory Impairment, Myocardial Infarction (LA), Pneumonia, Respiratory Disorder, Sleep Apnea/CPAP/BIPAP, Vascular Disorder Additional Past Medical History / Comment(s): on 10/25/18 pt states was having pizza with family and food got stuck, pt had small amount of emesis. She went to bed and woke up to discover that she was incontinent of stool while she slept. Pt states that this has never happened.Patient continues to have difficulty swallowing like before. HEP C. Aortic aneurysm with stent-being monitored, Takosubu syndrome in 2016, R groin dissection/cardiac cath, recent bacteremia- blood cultures positive for veridans strep-completed antibiotics, bronchitis, home O2 at 3L/NC most of the time, LG without device-stable, DVT R leg, lower GI bleed, hepatitis C with Harvoni treatment, anemia with iron infusions x2, bilateral femoral head avascular necrosis, RLS, migraines, insomnia, constipation, overactive bladder, post menopausal bleed. Last Myocardial Infarction Date:: 07/2017 History of Any Multi-Drug Resistant Organisms: None Reported Past Surgical History: Bladder Surgery, Cholecystectomy, Heart Catheterization With Stent, Hysterectomy, Orthopedic Surgery Additional Past Surgical History / Comment(s): Gallbladder removed (2018) AAA 2006 (stent) Past Anesthesia/Blood Transfusion Reactions: No Reported Reaction Date of Last Stent Placement:: 2010 Past Psychological History: Anxiety, Depression, Panic Disorder Smoking Status: Current every day smoker Past Alcohol Use History: None Reported Past Drug Use History: None Reported - Past Family History Brother(s) Family Medical History: Coronary Artery Disease (CAD), Myocardial Infarction (LA) Father Additional Family Medical History / Comment(s): FROM CIRRHOSIS OF THE LIVER Mother Family Medical History: COPD Additional Family Medical History / Comment(s): FROM AAA, HAD HX of TB. General Exam Limitations: no limitations General appearance: alert, in no apparent distress Head exam: Present: normocephalic Eye exam: Present: normal appearance Neck exam: Present: normal inspection Respiratory exam: Present: normal lung sounds bilaterally Cardiovascular Exam: Present: regular rate, normal rhythm Expanded Peripheral pulses: 2+: Dorsalis Pedis (R), Dorsalis Pedis (L) GI/Abdominal exam: Present: soft, tenderness (Mild to moderate diffuse tenderness, moderate to severe tenderness right lower quadrant). Absent: distended Extremities exam: Present: normal inspection. Absent: pedal edema, calf tendern ess Neurological exam: Present: alert Psychiatric exam: Present: normal affect, normal mood Skin exam: Present: normal color Course Vital Signs 01/18/20 01/18/20 01/18/20 16:22 16:27 16:30 Temperature 98.7 F Pulse Rate 78 Respiratory 18 Rate Blood Pressure 164/76 164/76 O2 Sat by Pulse 98 98 100 Oximetry 01/18/20 01/18/20 01/18/20 17:00 17:30 18:00 Temperature Pulse Rate 96 90 88 Respiratory 16 16 16 Rate Blood Pressure 169/80 181/84 170/78 O2 Sat by Pulse 100 100 100 Oximetry 01/18/20 18:30 Temperature Pulse Rate 86 Respiratory 18 Rate Blood Pressure 166/74 O2 Sat by Pulse Oximetry Medical Decision Making - Medical Decision Making Patient reevaluated and resting comfortably in bed. Patient states she is feeling somewhat better after medications. Abdomen remained soft. Mildly tender, moderately right lower quadrant. Patient updated on results. Case was discussed in detail with Dr. Hernandez who is familiar with this patient and did review the chart. She will admit covering for Dr. Colbert with GI consult. - Lab Data Result diagrams: 01/18/20 16:55 01/18/20 16:55 Lab Results 01/18/20 01/18/20 01/18/20 Range/Units 16:55 16:55 16:55 WBC 10.0 (3.8-10.6) k/uL RBC 3.29 L (3.80-5.40) m/uL Hgb 9.3 L D (11.4-16.0) gm/dL Hct 29.2 L (34.0-46.0) % MCV 88.9 (80.0-100.0) fL MCH 28.4 (25.0-35.0) pg MCHC 31.9 (31.0-37.0) g/dL RDW 16.5 H (11.5-15.5) % Plt Count 282 (150-450) k/uL Neutrophils % 69 % Lymphocytes % 18 % Monocytes % 5 % Eosinophils % 7 % Basophils % 0 % Neutrophils # 6.9 (1.3-7.7) k/uL Lymphocytes # 1.8 (1.0-4.8) k/uL Monocytes # 0.5 (0-1.0) k/uL Eosinophils # 0.7 (0-0.7) k/uL Basophils # 0.0 (0-0.2) k/uL Hypochromasia Moderate Anisocytosis Slight PT 9.8 (9.0-12.0) sec INR 0.9 (<1.2) APTT 24.6 (22.0-30.0) sec Sodium 128 L (137-145) mmol/L Potassium 3.8 (3.5-5.1) mmol/L Chloride 101 (98-107) mmol/L Carbon Dioxide 22 (22-30) mmol/L Anion Gap 5 mmol/L BUN 19 H (7-17) mg/dL Creatinine 2.42 H (0.52-1.04) mg/dL Est GFR (CKD-EPI)AfAm 23 (>60 ml/min/1.73 sqM) Est GFR (CKD-EPI)NonAf 20 (>60 ml/min/1.73 sqM) Glucose 97 (74-99) mg/dL Calcium 7.9 L (8.4-10.2) mg/dL Total Bilirubin 0.6 (0.2-1.3) mg/dL AST 47 H (14-36) U/L ALT 9 (4-34) U/L Alkaline Phosphatase 69 (38-126) U/L Total Protein 5.1 L (6.3-8.2) g/dL Albumin 2.4 L (3.5-5.0) g/dL Amylase 33 (30-110) U/L Lipase 89 (23-300) U/L - Radiology Data Radiology results: report reviewed (Computed tomography scan abdomen pelvis shows worsening abdominal ascites. Pleural effusion. Aneurysm grossly similar. Diffuse bowel wall thickening of the stomach. Similar right hydronephrosis. Limited exam.) Disposition Clinical Impression: Hyponatremia, Abdominal pain Disposition: ADMITTED IP TO THIS HOSP Is patient prescribed a controlled substance at d/c from ED?: No Referrals: Jenaro Colbert DO [Primary Care Provider] - 1-2 days Decision Time: 18:51
[2020-01-18 17:17] LABS: Anisocytosis Slight; Basophils % (A) 0 %; Eosinophils # (A) 0.7 k/uL (0-0.7); Eosinophils % (A) 7 %; HCT 29.2 % (34.0-46.0); Hypochromasia Moderate; Lymphocytes # (A) 1.8 k/uL (1.0-4.8); Lymphocytes % (A) 18 %; MCH 28.4 pg (25.0-35.0); MCHC 31.9 g/dL (31.0-37.0); MCV 88.9 fL (80.0-100.0); Mean Platelet Volume 8.4; Monocytes # (A) 0.5 k/uL (0-1.0); Monocytes % (A) 5 %; Neutrophils # (A) 6.9 k/uL (1.3-7.7); Neutrophils % (A) 69 %; Platelet Count 282 k/uL (150-450); RBC 3.29 m/uL (3.80-5.40); RDW 16.5 % (11.5-15.5)
[2020-01-18 17:19] LABS: Albumin 2.4 g/dL (3.5-5.0); Calcium 7.9 mg/dL (8.4-10.2); Potassium 3.8 mmol/L (3.5-5.1); Total Bilirubin 0.6 mg/dL (0.2-1.3); Total Protein 5.1 g/dL (6.3-8.2)
[2020-01-18 17:21] LABS: INR 0.9 (<1.2); Partial Thromboplastin Time 24.6 sec (22.0-30.0); Prothrombin Time 9.8 sec (9.0-12.0)
[2020-01-18 17:48] LABS: HGB 9.3 gm/dL (11.4-16.0)
--- NOTE | 2020-01-18 18:19 | CT ---
EXAMINATION TYPE: CT abdomen pelvis wo con DATE OF EXAM: 01/18/2020 COMPARISON: 01/10/2020 HISTORY: Abdominal pain. CT DLP: 271.2 mGycm Automated exposure control for dose reduction was used. TECHNIQUE: Helical acquisition of images was performed from the lung bases through the pelvis. FINDINGS: LUNG BASES: Peripheral multiple blebs are seen on the left as seen on the prior of 01/10/2020. Persist ent small left pleural effusion is also redemonstrated. Advanced emphysematous changes of the lungs. Descending thoracic aortic aneurysm measuring 3.6 cm. Extensive atherosclerosis of the thoracic and a bdominal aorta. LIVER/GB: Unremarkable unenhanced morphology of the liver. No radiopaque calculi seen in the gallblad chiquita. Previously seen common bile duct dilatation is poorly visualized on today's exam. PANCREAS: Nondiagnostic evaluation given the ill-defined margins secondary to lack of intravenous con trast and ascites. SPLEEN: Benign splenic granuloma noted. No splenomegaly. ADRENALS: Ill-defined given lack of contrast and ascites. KIDNEYS: Redemonstration of mild right hydronephrosis. No left-sided hydronephrosis. Atherosclerosis of the renal artery branches. This is particularly seen on the left. ADENOPATHY: Nondiagnostic given lack of intravenous contrast and ascites OSSEOUS STRUCTURES: Avascular necrosis is again seen. Degenerative change of the spine is again seen as well as diffuse osseous demineralization. BOWEL: Evaluation for bowel wall thickening is markedly limited given the adjacent ascites. No dilat ed large or small bowel. Stomach is nondistended given the appearance of bowel wall thickening. OTHER: Aortobiiliac stent graft is seen that is unopacified given the lack of intravenous contrast. T his begins superior to the renal arteries. [place] aortic lumen measures 3.8 x 4.2 cm on image 42, unc hanged from the prior. Cachexia is seen and anasarca as well as a large volume ascites overall markedly limiting the examina tion. Lack of intravenous and oral contrast also limited evaluation of the hollow and solid viscera. Surgical clips are seen in the hilar regions. IMPRESSION: Again the exam is markedly limited given lack of intravenous contrast, ascites, anasarca, mesenteric edema, cachexia, and paucity of intra-abdominal fat. Overall nondiagnostic evaluation of the adrenal glands, pancreas, and adenopathy. 1. Worsening abdominal ascites, no large volume. 2. Redemonstration of partially visualized left pleural effusion and emphysematous changes in the mik gs. 3. Abdominal aortic aneurysm and thoracic aortic aneurysm are grossly similar to the prior exam with extensive atherosclerosis and aortobiiliac stents. 4. Diffuse bowel wall thickening of the stomach may relate to incomplete distention, gastritis or les s likely neoplasm. 5. Similar degree of mild right hydronephrosis in comparison to 01/10/2020.
[2020-01-18] MEDS ORDERED: NALOXONE 0.4 MG/ML 1 ML VIAL IV PRN (18:51)
[2020-01-18] MEDS ORDERED: ONDANSETRON 4 MG/2 ML VIAL IVP PRN (18:51)
[2020-01-18] MEDS: PANTOPRAZOLE 40 MG/10 ML VIAL IV SCH (19:14)
[2020-01-18] MEDS: SODIUM CHLORIDE 0.9% 1,000 ML IV SCH (20:22)
[2020-01-18] MEDS ORDERED: DICYCLOMINE 20 MG TAB PO PRN (21:23)
[2020-01-18] MEDS ORDERED: ALPRAZolam 1 MG TAB PO PRN (21:23)
[2020-01-18] MEDS: APIXABAN 2.5 MG TABLET PO SCH (22:42)
[2020-01-18] MEDS: DULoxetine HCL 60 MG CAPSULE.DR PO SCH (22:42)
[2020-01-18] MEDS: hydrALAZINE HCL 50 MG TAB PO SCH (22:42)
[2020-01-18] MEDS: amLODIPine 5 MG TAB PO SCH (22:42)
[2020-01-18] MEDS: MIRTAZAPINE 15 MG TAB PO SCH (22:55)
[2020-01-18] MEDS: PRAMIPEXOLE 0.125 MG TAB PO SCH (22:56)
[2020-01-18] MEDS: HYDROmorphone 0.5 MG/0.5 ML SYRINGE IVP PRN (23:00)
[2020-01-19 01:19] LABS: Appearance,Urine Clear (Clear); Bilirubin,Urine Negative (Negative); Blood,Urine Trace (Negative); Color,Urine Yellow; Glucose,Urine (UA) 1+ (Negative); Ketones,Urine Negative (Negative); Leukocyte Esterase,Urine Negative (Negative); Nitrite,Urine Negative (Negative); Protein,Urine 3+ (Negative); RBC,Urine 3 /hpf (0-5); Specific Gravity,Urine 1.009 (1.001-1.035); Urobilinogen,Urine <2.0 mg/dL (<2.0); WBC,Urine <1 /hpf (0-5)
[2020-01-19] MEDS: HYDROmorphone 0.5 MG/0.5 ML SYRINGE IVP PRN ×2 (03:49→13:51)
[2020-01-19] MEDS: LEVOTHYROXINE 50 MCG TAB PO SCH (05:38)
[2020-01-19 07:29] LABS: Calcium 7.8 mg/dL (8.4-10.2); Potassium 3.3 mmol/L (3.5-5.1)
[2020-01-19] MEDS: TROSPIUM CHLORIDE 20 MG TABLET PO SCH ×2 (07:59→21:21)
[2020-01-19] MEDS: SODIUM BICARBONATE TAB 650 MG TAB PO SCH ×2 (07:59→21:21)
[2020-01-19] MEDS: POTASSIUM CHLORIDE ER 20 MEQ TAB.ER PO SCH ×4 (08:00→23:04)
[2020-01-19] MEDS: APIXABAN 2.5 MG TABLET PO SCH (08:00)
[2020-01-19] MEDS: amLODIPine 5 MG TAB PO SCH ×2 (08:00→21:19)
[2020-01-19] MEDS: CARVEDILOL 6.25 MG TAB PO SCH ×2 (08:00→17:29)
[2020-01-19] MEDS: hydrALAZINE HCL 50 MG TAB PO SCH ×2 (08:00→21:19)
[2020-01-19] MEDS: ASPIRIN 81 MG PO SCH (08:00)
[2020-01-19] MEDS: DULoxetine HCL 60 MG CAPSULE.DR PO SCH ×2 (08:00→21:19)
[2020-01-19] MEDS: DEXLANSOPRAZOLE 60 MG PO SCH (08:11)
[2020-01-19] MEDS: PANTOPRAZOLE 40 MG/10 ML VIAL IV SCH (08:15)
[2020-01-19] MEDS: TIOTROPIUM 18 MCG/PUFF INHALER INHALATION SCH (08:51)
[2020-01-19] MEDS: BARIUM SULFATE 450 ML ORAL.SUSP BOTTLE PO PRN ×2 (11:08→13:51)
--- NOTE | 2020-01-19 12:22 | CONS ---
CONSULTATION REASON FOR CONSULT: Renal failure. HISTORY OF PRESENT ILLNESS: Patient is a 69-year-old female who was admitted to the hospital with complaints off abdominal pain. Patient had some nausea and abdominal discomfort. She does have chronic diarrhea. No significant vomiting. No fever or chills. The patient does have previous history of diverticulitis. Patient denies previous history of kidney diseases; however, review of labs show serum creatinine at about 1.8-1.9 mg/dL in September of 2019 as well as June of 2019. Serum creatinine this admission was 2.4 with sodium of 128, currently it is at 2.4 as well. The patient is maintained on IV fluids at 75 mL an hour. The patient denied use of any nonsteroidal anti-inflammatory agents prior to admission. She was not on any LAUREN inhibitors or angiotensin receptor blockers prior to admission. Currently, she has had good urine output. PAST MEDICAL HISTORY: Significant for CKD, NKF stage 3 with previous creatinine 1.8 to 1.4 mg/dL all the way back to April and June of 2019. Past medical history also significant for atrial fibrillation, asthma, coronary artery disease, history of DVT, gastroesophageal reflux disease, GI bleed, hypertension, memory impairment, history of GA, pneumonia, obstructive sleep apnea, peripheral vascular disease, avascular necrosis of the femoral head. PAST SURGICAL HISTORY: Cholecystectomy, cardiac catheterization, coronary stent placement, hysterectomy, AAA repair, cholecystectomy. SOCIAL HISTORY: Positive for smoking. No history of drug abuse or alcohol abuse. MEDICATIONS: Prior to admission included Cymbalta, Toviaz, Mirapex, Xanax, Bentyl, Synthroid, Spiriva, Eliquis, Coreg, Levaquin, Remeron, potassium, Norvasc, hydralazine, Flagyl. ALLERGIES: Are multiple. Please see chart. REVIEW OF SYSTEMS: As per HPI. Other systems negative. PHYSICAL EXAMINATION: Patient is comfortable, awake she is not in any acute distress. Alert and oriented x3. Blood pressure 153/63, heart rate 76 per minute, she is afebrile. Examination of the heart S1, S2. Examination of the lungs, bilateral breath sounds are heard. Abdomen is soft. There is tenderness noted in the lower abdomen. 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 No edema noted in the peripheral extremities. LABS: Show sodium 133, potassium 3.3, chloride 105, BUN 17, creatinine 2.42. UA shows 3+ protein, trace blood assessment acute kidney injury, most likely prerenal continue with IV fluids. UA does show proteinuria and hematuria. Patient has chronic kidney disease. Etiology is unclear. Rule out underlying chronic GN. IMPRESSION: 1. History of metabolic acidosis, maintained on oral sodium bicarb. 2. CKD, NKF stage 3, previous creatinine 1.4-1.[address] back to April of 2019 with underlying proteinuria. Need to rule out chronic GN. 3. Abdominal pain with CT of the abdomen done yesterday showing evidence of ascites, pleural effusions, and diffuse bowel thickening noted. 4. Mild right hydronephrosis noted on CT scan. PLAN: 1. Check urinalysis, avoid hypotension. Continue IV fluids. Replace potassium. Check baseline serologies to workup the proteinuria and quantify the proteinuria. 2. Hyponatremia, which is hypovolemic and improved with normal saline. Thank you for this consultation. Will continue to follow the patient with you during her hospitalization. MMODL / IJN: [id number] /
[2020-01-19 12:28] VITALS: BMI 15.7
--- NOTE | 2020-01-19 12:57 | US ---
EXAMINATION TYPE: US abdomen limited DATE OF EXAM: 01/19/2020 COMPARISON: CT 01/18/2020 CLINICAL HISTORY: Possible paracentesis. Mild amount of ascites visualized, largest pocket LLQ measuring 5.4 cm IMPRESSION: There is mild ascites
--- NOTE | 2020-01-19 13:04 | US ---
EXAMINATION TYPE: US kidneys/renal and bladder DATE OF EXAM: 01/19/2020 COMPARISON: CT 01/18/2020 CLINICAL HISTORY: 69 year-old female with renal failure. TECHNIQUE: Multiple sonographic images of the kidneys and bladder are obtained. 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 Some loss of corticomedullary differentiation on the images. Left Kidney: No hydronephrosis. Cystic area visualized mid pole measuring 0.8 cm. Cortical thinning s uggests chronic medical renal disease. Bladder: Not visualized on today's exam due to ascites There is mild to moderate upper abdominal ascites. IMPRESSION: 1. Mild hydronephrosis on the right. 2. No hydronephrosis on the left but with changes of chronic medical renal disease. 3. Mild to moderate ascites. Bladder could not be visualized on the present exam.
--- NOTE | 2020-01-19 13:48 | P.HPIM ---
History of Present Illness H&P Date: 01/19/20 Chief Complaint: abdominal pain This is a 68-year-old female one of Dr. Colbert patient with past medical history of hepatitis C post the Harvoni therapy, history of CAD with non-ST elevated myocardial infarction in April 2017 status post heart catheterization and stenting of the RCA with heavily calcified right and left coronary systems and recommendations to maximize medical treatment, COPD, asthma, chronic hypoxic respiratory failure on home O2 at 3 L nasal cannula, previous history of DVT along with Takosubu syndrome, GI bleed (April 2016), chronic kidney disease III, multiple admissions for failure to thrive and chronic abdominal pain. 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 Islas at that time. History of carotid stenosis and aortic aneurysm followed by Dr. Costa. Patient had a recent hospitalization January 04 12/19/2059 which time she was treated for abdominal pain and underwent extensive workup including CAT scan of the abdomen and pelvis without contrast revealed dilated common bile duct. Correlate with lab values and HIDA scan if concern for acute cholecystitis. Ultrasound is unlikely to be beneficial due to adjacent bowel loops. Moderate degree of colonic fecal stasis and dilated fluid-filled small bowel in the right abdomen. Findings favor ileus. Avascular necrosis of the hips. Ultrasound of the abdomen revealed dilated common bile duct at 1 cm. Right upper quadrant ultrasound otherwise unremarkable. CAT scan of the chest revealed posterior right apical band of thickening may represent minimal increase in size. Extensive emphysematous changes. Renal ultrasound revealed loss of cortical medullary differentiation bilaterally suggest chronic medical renal disease. Small amount of ascites. Repeat CAT scan of the abdomen and pelvis without contrast on January 09 revealed mild new right hydronephrosis without obstructive process seen. New small pleural effusions. Abdominal ascites small volume overall. Mesenteric edema likely from fluid overload. Marked degree of colonic fecal stasis. Severe atherosclerosis of the abdominal aorta and aneurysm with vascular stent graft. Avascular necrosis of the hips. Enlarged common bile duct poorly seen. She was evaluated by multiple consultants for weight loss, anorexia and chronic abdominal pain. General surgery evaluated the patient and place her on magnesium citrate for constipation and suspect colitis. Oncology recommended consideration for outpatient PET scan and biopsy of increasing pulmonary nodule. Anemia was thought to be secondary to chronic kidney disease, nutritional deficiencies and chronic inflammation. Patient was also seen by nephrology for acute kidney injury. Patient was discharged home on January 10 in stable condition. Patient states that she was feeling fine initially. She was on Senokot and was having a bowel movement daily until Friday. She states that switched to be very soft pudding consistency. She's been taking MiraLAX every other day as well. She also states she had some increased edema to her legs and feet. Patient complains of significant pain to the right lower quadrant. Patient presented to [facility] emergency center for evaluation . She was found to be afebrile, heart rate 70, blood pressure 164/76, pulse ox 98% on room air. WBC was 10, hemoglobin 9.3, sodium 128, BUN 19 and creatinine 2.42, blood sugar 97. CAT scan of the abdomen and pelvis without contrast revealed worsening abdominal ascites, no large volume. Redemonstration of pleural effusion and emphysematous change in the lungs. Abdominal aortic aneurysm and thoracic aortic aneurysm with extensive atherosclerosis and aortobiiliac stents. Diffuse bowel wall thickening of the stomach may relate to incomplete distention, gastritis or less likely neoplasm. A similar degree of mild right hydronephrosis. Patient was admitted to the [facility] floor and consults placed with GI for ascites, general surgery for possible EGD colonoscopy and appendix evaluation which was not identified on the CAT scan. Patient was made nothing by mouth and eliquis placed on hold. Also repeat CAT scan of the abdomen and pelvis with oral contrast has been ordered and ultrasound to evaluate for paracentesis. Past Medical History Past Medical History: Atrial Fibrillation, Asthma, Coronary Artery Disease (CAD), Chest Pain / Angina, COPD, Deep Vein Thrombosis (DVT), GERD/Reflux, GI Bleed, Hypertension, Liver Disease, Memory Impairment, Myocardial Infarction (MA), Pneumonia, Respiratory Disorder, Sleep Apnea/CPAP/BIPAP, Vascular Disorder Additional Past Medical History / Comment(s): on 10/25/18 pt states was having pizza with family and food got stuck, pt had small amount of emesis. She went to bed and woke up to discover that she was incontinent of stool while she slept. Pt states that this has never happened.Patient continues to have difficulty swallowing like before. HEP C. Aortic aneurysm with stent-being monitored, Takosubu syndrome in 2016, R groin dissection/cardiac cath, recent bacteremia-b lood cultures positive for veridans strep-completed antibiotics, bronchitis, home O2 at 3L/NC most of the time, LG without device-stable, DVT R leg, lower GI bleed, hepatitis C with Harvoni treatment, anemia with iron infusions x2, bilateral femoral head avascular necrosis, RLS, migraines, insomnia, constipation, overactive bladder, post menopausal bleed. Last Myocardial Infarction Date:: 07/2017 History of Any Multi-Drug Resistant Organisms: None Reported Past Surgical History: Bladder Surgery, Cholecystectomy, Heart Catheterization With Stent, Hysterectomy, Orthopedic Surgery Additional Past Surgical History / Comment(s): Gallbladder removed (2018) AAA 2006 (stent) Past Anesthesia/Blood Transfusion Reactions: No Reported Reaction Date of Last Stent Placement:: 2010 Past Psychological History: Anxiety, Depression, Panic Disorder Additional Psychological History / Comment(s): PT uses a walker. SHE NO LONGER DRIVES, FAMILY TAKES THEM TO THEIR APPTS. Pt. stated has home 2L liters n/c, has cane/walker/wheel chair if needed. Smoking Status: Current every day smoker Past Alcohol Use History: None Reported Additional Past Alcohol Use History / Comment(s): She was a smoker starting in 1956. Smokes approx 5-8 cig.'s per day. Quit last Jun. but started again. Past Drug Use History: None Reported - Past Family History Brother(s) Family Medical History: Coronary Artery Disease (CAD), Myocardial Infarction (MA) Father Additional Family Medical History / Comment(s): FROM CIRRHOSIS OF THE LIVER Mother Family Medical History: COPD Additional Family Medical History / Comment(s): FROM AAA, HAD HX of TB. Medications and Allergies Home Medications Medication Instructions Recorded Confirmed Type Apixaban [Eliquis] 2.5 mg PO BID #60 tablet 03/02/19 01/18/20 Rx DULoxetine HCL [Cymbalta] 60 mg PO BID 09/28/19 01/18/20 History Fesoterodine Fumarate [Toviaz] 8 mg PO DAILY 09/28/19 01/18/20 History Pramipexole [Mirapex] 0.125 mg PO HS 09/28/19 01/18/20 History ALPRAZolam [Xanax] 1 mg PO BID PRN 01/05/20 01/18/20 History Aspirin 81 mg PO DAILY 01/05/20 01/18/20 History Dexlansoprazole [Dexilant] 60 mg PO DAILY 01/05/20 01/18/20 History Dicyclomine [Bentyl] 20 mg PO TID PRN 01/05/20 01/18/20 History Levothyroxine Sodium [Synthroid] 50 mcg PO DAILY 01/05/20 01/18/20 History Tiotropium Germfask [Spiriva 8 gm INHALATION RT-BID 01/05/20 01/18/20 History Respimat] Carvedilol [Coreg] 6.25 mg PO BID-W/MEALS #60 tab 01/11/20 01/18/20 Rx Mirtazapine [Remeron] 7.5 mg PO HS #30 tab 01/11/20 01/18/20 Rx Sodium Bicarbonate Tab 650 mg PO BID #60 tab 01/11/20 01/18/20 Rx amLODIPine [Norvasc] 5 mg PO BID tab 01/11/20 01/18/20 Rx hydrALAZINE HCL [Apresoline] 50 mg PO BID #60 tab 01/11/20 01/18/20 Rx Potassium Chloride ER [K-Dur 20] 20 meq PO DAILY 01/18/20 01/18/20 History Allergies Allergy/AdvReac Type Severity Reaction Status Date / Time naproxen sodium [From Aleve] Allergy Severe Anaphylaxis Verified 01/18/20 19:52 adhesive Allergy Rash/Hives Verified 01/18/20 19:52 clindamycin Allergy Anaphylaxis Verified 01/18/20 19:52 gentamicin [Gentamicin] Allergy SWELLING Verified 01/18/20 19:52 OF FACE W/ EYE DROPS latex Allergy Rash/Hives Verified 01/18/20 19:52 levothyroxine sodium Allergy Unknown Verified 01/18/20 19:52 [From Synthroid] losartan Allergy Unknown Verified 01/18/20 19:52 Penicillins Allergy Rash/Hives Verified 01/18/20 19:52 Sulfa (Sulfonamide Allergy Swelling Verified 01/18/20 19:52 Antibiotics) IN MOUTH sulfamethoxazole Allergy swelling Verified 01/18/20 19:52 [From Bactrim] tongue sulfanilamide Allergy Unknown Verified 01/18/20 19:52 trimethoprim [From Bactrim] Allergy Swelling Verified 01/18/20 19:52 venom-honey bee Allergy Dyspnea Verified 01/18/20 19:52 [bee venom (honey bee)] cinnamon [Cinnamon] AdvReac Dyspnea Verified 01/18/20 19:52 codeine AdvReac Nausea & Verified 01/18/20 19:52 Vomiting paola AdvReac Dyspnea Verified 01/18/20 19:52 Iodinated Contrast Media AdvReac Dyspnea Verified 01/18/20 19:52 [Iodinated Contrast- Oral and IV Dye] montelukast sodium AdvReac Wheezing Verified 01/18/20 19:52 [From Singulair] pantoprazole sodium AdvReac Abdominal Verified 01/18/20 19:52 [From Protonix] Pain red dye AdvReac Abdominal Verified 01/18/20 19:52 Pain BANDAIDS Allergy Rash/Hives Uncoded 01/18/20 19:52 Dye for gallbladder scan. Allergy Anaphylaxis Uncoded 01/18/20 19:52 tomatoes Allergy Abdominal Uncoded 01/18/20 19:52 Pain Physical Exam Vitals: Vital Signs Temp Pulse Pulse Resp BP BP Pulse Ox 01/19/20 04:05 97.9 F 86 12 108/69 96 01/19/20 00:15 12 01/18/20 22:04 98.0 F 76 12 153/63 92 L 01/18/20 19:42 12 01/18/20 18:30 86 18 166/74 01/18/20 18:00 88 16 170/78 100 01/18/20 17:30 90 16 181/84 100 01/18/20 17:00 96 16 169/80 100 01/18/20 16:30 164/76 100 01/18/20 16:27 98 01/18/20 16:22 98.7 F 78 18 164/76 98 Intake and Output 01/18/20 01/19/20 01/19/20 22:59 06:59 14:59 Intake Total 600 Balance 600 Intake: Intake, IV Titration 300 Amount Sodium Chloride 0.9% 1, 300 000 ml @ 75 mls/hr IV . [id number] [facility] Rx#:[id number] Oral 300 Other: Voiding Method Toilet Toilet Diaper Diaper Incontinent Incontinent # Voids 2 3 1 # Bowel Movements 2 1 Weight 40.37 kg Review of Systems Constitutional: Reports anorexia, Reports fatigue, Reports lethargy, Reports malaise, Reports poor appetite, Reports weakness, Reports weight loss, Denies chills, Denies fever Ears, nose, mouth and throat: Denies dysphagia, Denies headache, Denies nasal congestion, Denies nasal discharge, Denies sore throat, Denies vertigo Cardiovascular: Denies chest pain, Denies decreased exercise tolerance, Denies dyspnea on exertion, Denies edema, Denies leg edema, Denies lightheadedness, Denies shortness of breath, Denies syncope Respiratory: Denies cough, Denies cough with sputum, Denies dyspnea, Denies excessive sputum, Denies hemoptysis, Denies home oxygen, Denies respiratory infections, Denies wheezing Gastrointestinal: Reports abdominal pain, denies nausea, Denies constipation, Denies diarrhea, Denies loss of appetite, Denies vomiting Genitourinary: Denies dysuria, Denies hematuria, Denies urgency, Denies urinary frequency Menstruation: Reports postmenopausal Musculoskeletal: Reports gait dysfunction, Reports muscle weakness, Denies frequent falls, Denies myalgias Integumentary: Denies pruritus, Denies rash, Denies wounds Neurological: Denies change in mentation, Denies change in speech, Denies numbness, Denies seizures, Denies weakness Psychiatric: Denies anxiety, Denies depression Endocrine: Denies fatigue, Denies weight change Physical Examination: - Constitutional General appearance: cooperative, in no acute distress, frail appearing - EENT Eyes: anicteric sclerae, PERRLA, normal appearance ENT: hearing grossly normal NG tube with bile-colored return. - Neck Neck: no lymphadenopathy, normal ROM, no other, no rigidity, no stridor, no thyromegaly - Respiratory Respiratory: bilateral: CTA, negative: diminished, dullness, rales, rhonchi - Cardiovascular Rhythm: regular Heart sounds: normal: S1, S2 Abnormal Heart Sounds: no systolic murmur, no diastolic murmur, no rub, no S3 Gallop, no S4 Gallop, no click, no other - Gastrointestinal General gastrointestinal: normal bowel sounds, soft, tenderness to the right lower quadrant. - Integumentary Integumentary: no rash - Neurologic Neurologic: CNII-XII intact - Musculoskeletal Musculoskeletal: gait normal, strength equal bilaterally - Psychiatric Psychiatric: A&O x's 3, appropriate affect Results CBC & Chem 7: 01/18/20 16:55 01/19/20 06:48 Labs: Abnormal Lab Results - Last 24 Hours (Table) 01/18/20 01/18/20 01/19/20 Range/Units 16:55 16:55 01:00 RBC 3.29 L (3.80-5.40) m/uL Hgb 9.3 L D (11.4-16.0) gm/dL Hct 29.2 L (34.0-46.0) % RDW 16.5 H (11.5-15.5) % Sodium 128 L (137-145) mmol/L Potassium (3.5-5.1) mmol/L BUN 19 H (7-17) mg/dL Creatinine 2.42 H (0.52-1.04) mg/dL Glucose (74-99) mg/dL Calcium 7.9 L (8.4-10.2) mg/dL AST 47 H (14-36) U/L Total Protein 5.1 L (6.3-8.2) g/dL Albumin 2.4 L (3.5-5.0) g/dL Urine Protein 3+ H (Negative) Urine Glucose (UA) 1+ H (Negative) Urine Blood Trace H (Negative) 01/19/20 Range/Units 06:48 RBC (3.80-5.40) m/uL Hgb (11.4-16.0) gm/dL Hct (34.0-46.0) % RDW (11.5-15.5) % Sodium 133 L (137-145) mmol/L Potassium 3.3 L (3.5-5.1) mmol/L BUN (7-17) mg/dL Creatinine 2.42 H (0.52-1.04) mg/dL Glucose 109 H (74-99) mg/dL Calcium 7.8 L (8.4-10.2) mg/dL AST (14-36) U/L Total Protein (6.3-8.2) g/dL Albumin (3.5-5.0) g/dL Urine Protein (Negative) Urine Glucose (UA) (Negative) Urine Blood (Negative) Thrombosis Risk Factor Assmnt - DVT/VTE Prophylaxis DVT/VTE Prophylaxis: Mechanical Prophylaxis ordered - Choose All That Apply Any of the Below Risk Factors Present?: Yes Each Factor Represents 1 point: Abnormal pulmonary function (COPD) Other Risk Factors: Yes Each Risk Factor Represents 2 Points: Age 61-74 years Each Risk Factor Represents 3 Points: History of DVT/PE Other congenital or acquired thrombophilia - If yes, enter type in comment: No Thrombosis Risk Factor Assessment Total Risk Factor Score: 6 Thrombosis Risk Factor Assessment Level: High Risk Assessment and Plan Plan: 1. Abdominal pain right lower quadrant, acute on chronic, anorexia and weight loss of unclear etiology. GI consult appreciated. Repeat CAT scan of the abdomen and pelvis with oral contrast has been ordered. Patient is scheduled for EGD and colonoscopy. Continue Remeron 7.5 mg at bedtime. 2. Increasing ascites. GI consult appreciated. Abdominal ultrasound ordered to evaluate for paracentesis. 3. Acute kidney injury with chronic kidney disease stage III. Avoid nephrotoxic agents, nonsteroidal anti-inflammatory. Continue IV fluids at 75 mL/h, recheck electrolytes and renal function in the morning. Nephrology consult. Continue sodium bicarb 650 mg twice daily. 2. Hyponatremia. Continue IV fluids. Recheck electrolytes. 5. Hypertension and hypertensive cardiovascular disease. Continue amlodipine 5 mg twice daily, Coreg 6.25 mg twice daily, hydralazine 50 mg twice daily. 6. Peripheral vascular disease with history of left common iliac artery stent graft with focal aneurysm 3.2 cm severe stenosis beyond aneurysm, right common iliac artery 2.6 cm with modest focal stenosis just beyond. Palpable aneurysm in the left lower quadrant, nontender to palpate. 7. Bilateral avascular necrosis bilateral femoral seen by Dr. Whipple orthopedic surgeon no intervention needed. 8. History of Viridans strep bacteremia secondary to endovascular infection. 9. Chronic back pain. 10. Chronic anemia of chronic disease. Hemoglobin stable 11. Paroxysmal atrial fibrillation. Continue Coreg. Eliquis on hold. 12. Hep C S/P Harvoni therapy. 13. Hyperlipidemia. Patient was unable to tolerate Lipitor. 14. Abdominal aortic aneurysm S/P endovascular stent. 15. Chronic tobacco use and dependence. Smoking cessation. 16. Migraine Headache. 17. Restless leg syndrome. Continue Mirapex 0.125 mg orally at bedtime. 18. Obstructive sleep apnea. Stable. 19. Generalized anxiety disorder with panic disorder, recurrent depression. Cymbalta 60 mg twice daily, Remeron 7.5 mg at bedtime and Xanax 1 mg twice daily as needed. 20. Overactive bladder. Hold toviaz. 21. DVT prophylaxis. Eliquis on hold. SCDs and MILANA hose.. 22. GI prophylaxis. Protonix 23. Severe protein calorie malnutrition. Continue ensure. 24. COVID-19 testing in process. Estimated length of stay is 2 midnights. Discharge plan: To be determined. PT and OT consults. Impression and plan of care have been directed as dictated by the signing physician. Coby Joaquin nurse practitioner acting as scribe for signing physician.
[2020-01-19 13:59] LABS: Appearance,Urine Clear (Clear); Bacteria,Urine Rare /hpf; Bilirubin,Urine Negative (Negative); Blood,Urine Trace (Negative); Color,Urine Yellow; Glucose,Urine (UA) 1+ (Negative); Ketones,Urine Negative (Negative); Leukocyte Esterase,Urine Negative (Negative); Mucus,Urine Rare /hpf; Nitrite,Urine Negative (Negative); PH, Urine 6.5 (5.0-8.0); Protein,Urine 3+ (Negative); RBC,Urine 5 /hpf (0-5); Specific Gravity,Urine 1.015 (1.001-1.035); Squamous Epithelial Cell,Urine <1 /hpf (0-4); Urobilinogen,Urine <2.0 mg/dL (<2.0); WBC,Urine 1 /hpf (0-5)
[2020-01-19] MEDS ORDERED: PEG 3350-NA SULF,BICARB,CL/KCL 4,000 ML BOTTLE PO ONE (14:00)
[2020-01-19] MEDS: SODIUM CHLORIDE 0.9% 1,000 ML IV SCH ×2 (14:01→23:05)
--- NOTE | 2020-01-19 15:20 | P.GSCN ---
History of Present Illness Consult date: 01/19/20 Reason for Consult: Abdominal pain Requesting physician: Coby Joaquin History of present illness: CHIEF COMPLAINT: Abdominal pain HISTORY OF PRESENT ILLNESS: 69-year-old female presented to emergency room with a chief complaint of abdominal pain. General surgery was consulted for further evaluation. Patient is well-known to surgical services from previous admission in December 2019. Patient examined at the bedside with Dr. Milligan. Patient reports right lower quadrant abdominal pain. She currently denies nausea or vomiting. PAST MEDICAL HISTORY: See list. PAST SURGICAL HISTORY: See list. SOCIAL HISTORY: No illicit drug use. REVIEW OF SYSTEMS: CONSTITUTIONAL: Denies fever or chills. HEENT: Denies blurred vision, vision changes, or eye pain. Denies hemoptysis CARDIOVASCULAR: Denies chest pain or pressure. RESPIRATORY: No shortness of breath. GASTROINTESTINAL: Refer to HPI for pertinent findings HEMATOLOGIC: Denies bleeding disorders. GENITOURINARY: Denies any blood in urine. SKIN: Denies pruitis. Denies rash. PHYSICAL EXAM: VITAL SIGNS: Reviewed. GENERAL: Well-developed in no acute distress. HEENT: No sclera icterus. Extraocular movements grossly intact. Moist buccal mucosa. Head is atraumatic, normocephalic. ABDOMEN: Soft. Nondistended. Tenderness with palpation to right lower quadrant. NEUROLOGIC: Alert and oriented. Cranial nerves II through XII grossly intact. LABORATORY DATA: WBC 10.0. Hemoglobin 9.3. Platelet count 282. IMAGING: CT abdomen and pelvis: Worsening abdominal ascites. Diffuse bowel wall thickening of the stomach may relate to incomplete distention, gastritis, or less likely neoplasm. ASSESSMENT: 1. Right lower quadrant abdominal pain PLAN: -Repeat CT with ORAL contrast. If no acute etiology revealed on CT scan then will proceed with EGD and colonoscopy tomorrow. GoLYTELY bowel prep today. Clear liquid diet. NPO at midnight. Nurse practitioner note has been reviewed by physician. Signing provider agrees with the documented findings, assessment, and plan of care. Past Medical History Past Medical History: Atrial Fibrillation, Asthma, Coronary Artery Disease (CAD), Chest Pain / Angina, COPD, Deep Vein Thrombosis (DVT), GERD/Reflux, GI Bleed, Hypertension, Liver Disease, Memory Impairment, Myocardial Infarction (LA), Pneumonia, Respiratory Disorder, Sleep Apnea/CPAP/BIPAP, Vascular Disorder Additional Past Medical History / Comment(s): on 10/25/18 pt states was having pizza with family and food got stuck, pt had small amount of emesis. She went to bed and woke up to discover that she was incontinent of stool while she slept. Pt states that this has never happened.Patient continues to have difficulty swallowing like before. HEP C. Aortic aneurysm with stent-being monitored, Takosubu syndrome in 2016, R groin dissection/cardiac cath, recent bacteremia- blood cultures positive for veridans strep-completed antibiotics, bronchitis, home O2 at 3L/NC most of the time, LG without device-stable, DVT R leg, lower GI bleed, hepatitis C with Harvoni treatment, anemia with iron infusions x2, bilateral femoral head avascular necrosis, RLS, migraines, insomnia, const ipation, overactive bladder, post menopausal bleed. Last Myocardial Infarction Date:: 07/2017 History of Any Multi-Drug Resistant Organisms: None Reported Past Surgical History: Bladder Surgery, Cholecystectomy, Heart Catheterization With Stent, Hysterectomy, Orthopedic Surgery Additional Past Surgical History / Comment(s): Gallbladder removed (2018) AAA 2006 (stent) Past Anesthesia/Blood Transfusion Reactions: No Reported Reaction Date of Last Stent Placement:: 2010 Past Psychological History: Anxiety, Depression, Panic Disorder Additional Psychological History / Comment(s): PT uses a walker. SHE NO LONGER DRIVES, FAMILY TAKES THEM TO THEIR APPTS. Pt. stated has home 2L liters n/c, has cane/walker/wheel chair if needed. Smoking Status: Current every day smoker Past Alcohol Use History: None Reported Additional Past Alcohol Use History / Comment(s): She was a smoker starting in 1956. Smokes approx 5-8 cig.'s per day. Quit last Jun. but started again. Past Drug Use History: None Reported - Past Family History Brother(s) Family Medical History: Coronary Artery Disease (CAD), Myocardial Infarction (LA) Father Additional Family Medical History / Comment(s): FROM CIRRHOSIS OF THE LIVER Mother Family Medical History: COPD Additional Family Medical History / Comment(s): FROM AAA, HAD HX of TB. Medications and Allergies Home Medications Medication Instructions Recorded Confirmed Type Apixaban [Eliquis] 2.5 mg PO BID #60 tablet 03/02/19 01/18/20 Rx DULoxetine HCL [Cymbalta] 60 mg PO BID 09/28/19 01/18/20 History Fesoterodine Fumarate [Toviaz] 8 mg PO DAILY 09/28/19 01/18/20 History Pramipexole [Mirapex] 0.125 mg PO HS 09/28/19 01/18/20 History ALPRAZolam [Xanax] 1 mg PO BID PRN 01/05/20 01/18/20 History Aspirin 81 mg PO DAILY 01/05/20 01/18/20 History Dexlansoprazole [Dexilant] 60 mg PO DAILY 01/05/20 01/18/20 History Dicyclomine [Bentyl] 20 mg PO TID PRN 01/05/20 01/18/20 History Levothyroxine Sodium [Synthroid] 50 mcg PO DAILY 01/05/20 01/18/20 History Tiotropium [place] [Spiriva 8 gm INHALATION RT-BID 01/05/20 01/18/20 History Respimat] Carvedilol [Coreg] 6.25 mg PO BID-W/MEALS #60 tab 01/11/20 01/18/20 Rx Mirtazapine [Remeron] 7.5 mg PO HS #30 tab 01/11/20 01/18/20 Rx Sodium Bicarbonate Tab 650 mg PO BID #60 tab 01/11/20 01/18/20 Rx amLODIPine [Norvasc] 5 mg PO BID tab 01/11/20 01/18/20 Rx hydrALAZINE HCL [Apresoline] 50 mg PO BID #60 tab 01/11/20 01/18/20 Rx Potassium Chloride ER [K-Dur 20] 20 meq PO DAILY 01/18/20 01/18/20 History Allergies Allergy/AdvReac Type Severity Reaction Status Date / Time naproxen sodium [From Aleve] Allergy Severe Anaphylaxis Verified 01/18/20 19:52 adhesive Allergy Rash/Hives Verified 01/18/20 19:52 clindamycin Allergy Anaphylaxis Verified 01/18/20 19:52 gentamicin [Gentamicin] Allergy SWELLING Verified 01/18/20 19:52 OF FACE W/ EYE DROPS latex Allergy Rash/Hives Verified 01/18/20 19:52 levothyroxine sodium Allergy Unknown Verified 01/18/20 19:52 [From Synthroid] losartan Allergy Unknown Verified 01/18/20 19:52 Penicillins Allergy Rash/Hives Verified 01/18/20 19:52 Sulfa (Sulfonamide Allergy Swelling Verified 01/18/20 19:52 Antibiotics) IN MOUTH sulfamethoxazole Allergy swelling Verified 01/18/20 19:52 [From Bactrim] tongue sulfanilamide Allergy Unknown Verified 01/18/20 19:52 trimethoprim [From Bactrim] Allergy Swelling Verified 01/18/20 19:52 venom-honey bee Allergy Dyspnea Verified 01/18/20 19:52 [bee venom (honey bee)] cinnamon [Cinnamon] AdvReac Dyspnea Verified 01/18/20 19:52 codeine AdvReac Nausea & Verified 01/18/20 19:52 Vomiting paola AdvReac Dyspnea Verified 01/18/20 19:52 Iodinated Contrast Media AdvReac Dyspnea Verified 01/18/20 19:52 [Iodinated Contrast- Oral and IV Dye] montelukast sodium AdvReac Wheezing Verified 01/18/20 19:52 [From Singulair] pantoprazole sodium AdvReac Abdominal Verified 01/18/20 19:52 [From Protonix] Pain red dye AdvReac Abdominal Verified 01/18/20 19:52 Pain BANDAIDS Allergy Rash/Hives Uncoded 01/18/20 19:52 Dye for gallbladder scan. Allergy Anaphylaxis Uncoded 01/18/20 19:52 tomatoes Allergy Abdominal Uncoded 01/18/20 19:52 Pain Surgical - Exam Vital Signs Temp Pulse Resp BP Pulse Ox 98.7 F 78 18 164/76 98 01/18/20 16:22 01/18/20 16:22 01/18/20 16:22 01/18/20 16:22 01/18/20 16:22 Results - Labs 01/18/20 16:55 01/19/20 06:48 Abnormal Lab Results - Last 24 Hours (Table) 01/18/20 01/18/20 01/19/20 Range/Units 16:55 16:55 01:00 RBC 3.29 L (3.80-5.40) m/uL Hgb 9.3 L D (11.4-16.0) gm/dL Hct 29.2 L (34.0-46.0) % RDW 16.5 H (11.5-15.5) % Sodium 128 L (137-145) mmol/L Potassium (3.5-5.1) mmol/L BUN 19 H (7-17) mg/dL Creatinine 2.42 H (0.52-1.04) mg/dL Glucose (74-99) mg/dL Calcium 7.9 L (8.4-10.2) mg/dL AST 47 H (14-36) U/L Total Protein 5.1 L (6.3-8.2) g/dL Albumin 2.4 L (3.5-5.0) g/dL Urine Protein 3+ H (Negative) Urine Glucose (UA) 1+ H (Negative) Urine Blood Trace H (Negative) Urine Bacteria (None) /hpf Urine Mucus (None) /hpf 01/19/20 01/19/20 Range/Units 06:48 13:25 RBC (3.80-5.40) m/uL Hgb (11.4-16.0) gm/dL Hct (34.0-46.0) % RDW (11.5-15.5) % Sodium 133 L (137-145) mmol/L Potassium 3.3 L (3.5-5.1) mmol/L BUN (7-17) mg/dL Creatinine 2.42 H (0.52-1.04) mg/dL Glucose 109 H (74-99) mg/dL Calcium 7.8 L (8.4-10.2) mg/dL AST (14-36) U/L Total Protein (6.3-8.2) g/dL Albumin (3.5-5.0) g/dL Urine Protein 3+ H (Negative) Urine Glucose (UA) 1+ H (Negative) Urine Blood Trace H (Negative) Urine Bacteria Rare H (None) /hpf Urine Mucus Rare H (None) /hpf Diabetes panel 01/18/20 01/19/20 Range/Units 16:55 06:48 Sodium 128 L 133 L (137-145) mmol/L Potassium 3.8 3.3 L (3.5-5.1) mmol/L Chloride 101 105 (98-107) mmol/L Carbon Dioxide 22 23 (22-30) mmol/L BUN 19 H 17 (7-17) mg/dL Creatinine 2.42 H 2.42 H (0.52-1.04) mg/dL Glucose 97 109 H (74-99) mg/dL Calcium 7.9 L 7.8 L (8.4-10.2) mg/dL AST 47 H (14-36) U/L ALT 9 (4-34) U/L Alkaline Phosphatase 69 (38-126) U/L Total Protein 5.1 L (6.3-8.2) g/dL Albumin 2.4 L (3.5-5.0) g/dL Calcium panel 01/18/20 01/19/20 Range/Units 16:55 06:48 Calcium 7.9 L 7.8 L (8.4-10.2) mg/dL Albumin 2.4 L (3.5-5.0) g/dL Pituitary panel 01/18/20 01/19/20 Range/Units 16:55 06:48 Sodium 128 L 133 L (137-145) mmol/L Potassium 3.8 3.3 L (3.5-5.1) mmol/L Chloride 101 105 (98-107) mmol/L Carbon Dioxide 22 23 (22-30) mmol/L BUN 19 H 17 (7-17) mg/dL Creatinine 2.42 H 2.42 H (0.52-1.04) mg/dL Glucose 97 109 H (74-99) mg/dL Calcium 7.9 L 7.8 L (8.4-10.2) mg/dL Adrenal panel 01/18/20 01/19/20 Range/Units 16:55 06:48 Sodium 128 L 133 L (137-145) mmol/L Potassium 3.8 3.3 L (3.5-5.1) mmol/L Chloride 101 105 (98-107) mmol/L Carbon Dioxide 22 23 (22-30) mmol/L BUN 19 H 17 (7-17) mg/dL Creatinine 2.42 H 2.42 H (0.52-1.04) mg/dL Glucose 97 109 H (74-99) mg/dL Calcium 7.9 L 7.8 L (8.4-10.2) mg/dL Total Bilirubin 0.6 (0.2-1.3) mg/dL AST 47 H (14-36) U/L ALT 9 (4-34) U/L Alkaline Phosphatase 69 (38-126) U/L Total Protein 5.1 L (6.3-8.2) g/dL Albumin 2.4 L (3.5-5.0) g/dL
--- NOTE | 2020-01-19 15:44 | CT ---
EXAMINATION TYPE: CT abdomen pelvis wo con DATE OF EXAM: 01/19/2020 COMPARISON: 01/18/2020, 01/10/2020 HISTORY: 69-year-old female right lower quadrant and Right sided pain CT DLP: 407 mGycm. Automated exposure control for dose reduction was used. TECHNIQUE: Contiguous axial scanning of the abdomen and pelvis without IV contrast. Coronal and sagit renetta reconstructions performed. FINDINGS: Heart normal size without pericardial effusion. Aortic valvular calcifications are present. Aneurysmal lower descending thoracic aorta measuring up to 3.6 cm. Redemonstrated extensive evidence of status change within the lower lungs with small left effusion with increasing left basilar opacity . Generalized anasarca change redemonstrated. Increasing moderate abdominopelvic ascites. Possible diffuse gastric fold thickening. Limited noncontrast images of the liver show no gross abnormal. Again, adrenal glands and pancreas ar e nondiagnostic due to anasarca, ascites, and lack of contrast. Atrophic left kidney. Mild right-sided pelvicaliectasis is unchanged. Distended duodenum measuring up to 5.0 cm. Some oral contrast has entered the region of the cecum but it remains peripherally displaced along the bowel wall. There is central low density and linear mese nteric fat noted. Unable to clearly follow the bowel in this region. There is some slight tort appear ance, referred axial image 66 and possible abnormal pulling, axial image 67 and 70. Moderate circumfe rential wall thickening near the proximal transverse colon, axial image 56. Bladder partially distended. Surgical clips in the bilateral inguinal regions. Redemonstrated and vascular aortobiiliac grafts. 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 AAA measuring at least 4.0 cm, unchanged. Bones: Degenerative changes at the hips with serpiginous areas of sclerosis compatible with avascular necrosis but no subarticular collapse. Accentuated lumbar lordosis. IMPRESSION: 1. Increasing moderate abdominopelvic ascites. 2. Continued small left pleural effusion but with increasing left basilar opacity. Correlate to excl ude pneumonia. 3. Very limited assessment due to lack of IV contrast, cachexia, ascites, and anasarca. There is melissa e possible torquing of bowel in the right lower quadrant and pulling of mesenteric fat and vessels, a xial images 66 through 70, and intraluminal mass effect pushing contrast to the periphery of the cecu m. Unable to exclude some type of volvulus or intussusception pathology. 4. Redemonstrated AAA with an aortobiiliac endovascular stent graft and left common iliac artery ane urysm at 3.2 cm. 5. Diffuse gastric fold thickening may reflect gastritis. 6. Bilateral femoral head AVN without subarticular collapse.
[2020-01-19 18:16] LABS: Hepatitis B Surface Antigen Non-Reactive (Non-Reactive); Hepatitis C IgG Antibody Reactive (Non-Reactive)
[2020-01-19] MEDS: MIRTAZAPINE 15 MG TAB PO SCH (21:20)
[2020-01-19] MEDS: PRAMIPEXOLE 0.125 MG TAB PO SCH (21:20)
[2020-01-19] MEDS ORDERED: Potassium Replacement Protocol 1 EACH MISC MISCELLANE PRN (22:49)
[2020-01-20] MEDS: POTASSIUM CHLORIDE ER 20 MEQ TAB.ER PO SCH ×2 (00:15→08:42)
[2020-01-20] MEDS: HYDROmorphone 0.5 MG/0.5 ML SYRINGE IVP PRN ×2 (02:37→15:17)
[2020-01-20 02:45] LABS: Anisocytosis Slight; HCT 31.2 % (34.0-46.0); HGB 9.4 gm/dL (11.4-16.0); Hypochromasia Marked; MCH 28.3 pg (25.0-35.0); MCHC 30.2 g/dL (31.0-37.0); MCV 93.8 fL (80.0-100.0); Mean Platelet Volume 7.9; Platelet Count 321 k/uL (150-450); RBC 3.33 m/uL (3.80-5.40); RDW 16.6 % (11.5-15.5); WBC 10.4 k/uL (3.8-10.6)
[2020-01-20 02:46] LABS: Albumin 2.5 g/dL (3.5-5.0); Calcium 7.7 mg/dL (8.4-10.2); Potassium 3.2 mmol/L (3.5-5.1); Total Bilirubin 0.3 mg/dL (0.2-1.3); Total Protein 5.3 g/dL (6.3-8.2)
[2020-01-20] MEDS ORDERED: Potassium Replacement Protocol 1 EACH MISC MISCELLANE PRN (03:49)
[2020-01-20] MEDS: POTASSIUM CHLORIDE 10 MEQ in WATER FOR INJECTION 1 100ML.BAG IVPB SCH ×3 (04:23→15:16)
[2020-01-20] MEDS ORDERED: PROPOFOL 10 MG/ML 20 ML VIAL IV ONE (07:11)
[2020-01-20] MEDS ORDERED: LIDOCAINE 1% INJ 10MG/ML (20 ML MDV) ONE (07:11)
[2020-01-20] MEDS ORDERED: IV FLUID CONTINUATION 1,000 ML IV ONE (07:11)
--- NOTE | 2020-01-20 07:50 | P.OP ---
Date of Procedure: 01/20/20 Preoperative Diagnosis: Gastritis Colitis Postoperative Diagnosis: Mild antral gastritis Ijeoma esophagitis biopsies pending Tortuous colon Procedure(s) Performed: EGD Colonoscopy Anesthesia: MAC Surgeon: Darius Milligan Pathology: other (Antrum, esophagus) Condition: stable Disposition: PACU Description of Procedure: The patient's placed on the endoscopy table in the lateral position. She received IV sedation. The gastroscope placed oropharynx and passed in the esophagus into the stomach. Scope was then placed through the pylorus. The first and second portion of duodenum appeared normal. Scope summer back the antrum this appeared minimally inflamed. Several antral biopsies performed. Scope was unretroflexed and remainder of the stomach appeared normal. There is no evidence of any mucosal inflammation. The scope was brought back the GE junction and this was at 40 cm. The esophagus appeared to have a Ijeoma infection several biopsies were performed of the distal esophagus. Scope was withdrawn for patient. Next digital rectal exam was performed. There were some minimal external hemorrhoids. Flexible colonoscope was then placed patient anus and passed with colon. The scope could not be passed beyond the left colon secondary to tortuosity valve. Several times made to maneuver the scope however this was impossible. The patient is quite cachectic and I was concerned about the fragility the colon. At this point scope withdrawn. There is no obvious obstruction of the descending and sigmoid colon. No biopsies performed. Scope was withdrawn for patient.
[2020-01-20] MEDS ORDERED: FLUCONAZOLE IN NACL,ISO-OSM 100 MG in SALINE 1 50ML.BAG IVPB STA (08:35)
[2020-01-20] MEDS: DULoxetine HCL 60 MG CAPSULE.DR PO SCH (08:41)
[2020-01-20] MEDS: LEVOTHYROXINE 50 MCG TAB PO SCH (08:41)
[2020-01-20] MEDS: TROSPIUM CHLORIDE 20 MG TABLET PO SCH (08:41)
[2020-01-20] MEDS: CARVEDILOL 6.25 MG TAB PO SCH ×2 (08:42→17:33)
[2020-01-20] MEDS: hydrALAZINE HCL 50 MG TAB PO SCH (08:42)
[2020-01-20] MEDS: ASPIRIN 81 MG PO SCH (08:43)
[2020-01-20] MEDS: PANTOPRAZOLE 40 MG/10 ML VIAL IV SCH (08:43)
[2020-01-20] MEDS: amLODIPine 5 MG TAB PO SCH (08:43)
[2020-01-20] MEDS: SODIUM BICARBONATE TAB 650 MG TAB PO SCH (08:43)
[2020-01-20] MEDS: DEXLANSOPRAZOLE 60 MG PO SCH (08:56)
[2020-01-20 08:59] LABS: Anti-DNA, DS unit <1.0 IU/mL; DNA Double-Stranded NEGATIVE (NEGATIVE)
--- NOTE | 2020-01-20 10:04 | P.CONS ---
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 Patient has had multiple recent hospitalizations with imaging at those times including a computed tomography scan with evidence of dilated CBD, a HIDA scan with concern for possible causes Wagoner, and ultrasound of the abdomen again demonstrated a dilated CBD and a repeat computed tomography scan on current presentation which shows increasing abdominal ascites. Patient describes the pain as sharp in the. Umbilical region of her abdomen as well as the right side. She reports associated nausea with no vomiting. She does have a history of hep C which was treated. She denies any prior history of cirrhosis. Review of Systems REVIEW OF SYSTEMS: CONSTITUTIONAL: Denies any fevers, chills, weight change or fatigue. CARDIOVASCULAR: Denies any chest pain, palpitations high or low blood pressures RESPIRATORY: Denies any shortness of breath, hemoptysis or cough. GENITOURINARY: No dysuria or hematuria. MUSCULOSKELETAL: No weakness reported. SKIN: Denies any new rashes or lesions, jaundice or pallor. PSYCHIATRIC: Denies any depression or anxiety. NEUROLOGY: Denies headache, denies any new focal deficits. EARS/NOSE/THROAT: No recent hearing change, congestion, nasal discharge or sore throat. EYES: No pain in eyes, discharge or change in vision. GASTROINTESTINAL: As per HPI. Past Medical History Past Medical History: Atrial Fibrillation, Asthma, Coronary Artery Disease (CAD), Chest Pain / Angina, COPD, Deep Vein Thrombosis (DVT), GERD/Reflux, GI Bleed, Hypertension, Liver Disease, Memory Impairment, Myocardial Infarction ([place]), Pneumonia, Respiratory Disorder, Sleep Apnea/CPAP/BIPAP, Vascular Disorder Additional Past Medical History / Comment(s): on 10/25/18 pt states was having pizza with family and food got stuck, pt had small amount of emesis. She went to bed and woke up to discover that she was incontinent of stool while she slept. Pt states that this has never happened.Patient continues to have difficulty swallowing like before. HEP C. Aortic aneurysm with stent-being monitored, Takosubu syndrome in 2016, R groin dissection/cardiac cath, recent bacteremia- blood cultures positive for veridans strep-completed antibiotics, bronchitis, home O2 at 3L/NC most of the time, LG without device-stable, DVT R leg, lower GI bleed, hepatitis C with Harvoni treatment, anemia with iron infusions x2, bilateral femoral head avascular necrosis, RLS, migraines, insomnia, constipation, overactive bladder, post menopausal bleed. Last Myocardial Infarction Date:: 07/2017 History of Any Multi-Drug Resistant Organisms: None Reported Past Surgical History: Bladder Surgery, Cholecystectomy, Heart Catheterization With Stent, Hysterectomy, Orthopedic Surgery Additional Past Surgical History / Comment(s): Gallbladder removed (2018) AAA 2006 (stent) Past Anesthesia/Blood Transfusion Reactions: No Reported Reaction Date of Last Stent Placement:: 2010 Past Psychological History: Anxiety, Depression, Panic Disorder Additional Psychological History / Comment(s): PT uses a walker. SHE NO LONGER DRIVES, FAMILY TAKES THEM TO THEIR APPTS. Pt. stated has home 2L liters n/c, has cane/walker/wheel chair if needed. Smoking Status: Current every day smoker Past Alcohol Use History: None Reported Additional Past Alcohol Use History / Comment(s): She was a smoker starting in 1956. Smokes approx 5-8 cig.'s per day. Quit last Jun. but started again. Past Drug Use History: None Reported - Past Family History Brother(s) Family Medical History: Coronary Artery Disease (CAD), Myocardial Infarction ([place]) Father Additional Family Medical History / Comment(s): FROM CIRRHOSIS OF THE LIVER Mother Family Medical History: COPD Additional Family Medical History / Comment(s): FROM AAA, HAD HX of TB. Medications and Allergies Home Medications Medication Instructions Recorded Confirmed Type Apixaban [Eliquis] 2.5 mg PO BID #60 tablet 03/02/19 01/18/20 Rx DULoxetine HCL [Cymbalta] 60 mg PO BID 09/28/19 01/18/20 History Fesoterodine Fumarate [Toviaz] 8 mg PO DAILY 09/28/19 01/18/20 History Pramipexole [Mirapex] 0.125 mg PO HS 09/28/19 01/18/20 History ALPRAZolam [Xanax] 1 mg PO BID PRN 01/05/20 01/18/20 History Aspirin 81 mg PO DAILY 01/05/20 01/18/20 History Dexlansoprazole [Dexilant] 60 mg PO DAILY 01/05/20 01/18/20 History Dicyclomine [Bentyl] 20 mg PO TID PRN 01/05/20 01/18/20 History Levothyroxine Sodium [Synthroid] 50 mcg PO DAILY 01/05/20 01/18/20 History Tiotropium [place] [Spiriva 8 gm INHALATION RT-BID 01/05/20 01/18/20 History Respimat] Carvedilol [Coreg] 6.25 mg PO BID-W/MEALS #60 tab 01/11/20 01/18/20 Rx Mirtazapine [Remeron] 7.5 mg PO HS #30 tab 01/11/20 01/18/20 Rx Sodium Bicarbonate Tab 650 mg PO BID #60 tab 01/11/20 01/18/20 Rx amLODIPine [Norvasc] 5 mg PO BID tab 01/11/20 01/18/20 Rx hydrALAZINE HCL [Apresoline] 50 mg PO BID #60 tab 01/11/20 01/18/20 Rx Potassium Chloride ER [K-Dur 20] 20 meq PO DAILY 01/18/20 01/18/20 History Allergies Allergy/AdvReac Type Severity Reaction Status Date / Time naproxen sodium [From Aleve] Allergy Severe Anaphylaxis Verified 01/18/20 19:52 adhesive Allergy Rash/Hives Verified 01/18/20 19:52 clindamycin Allergy Anaphylaxis Verified 01/18/20 19:52 gentamicin [Gentamicin] Allergy SWELLING Verified 01/18/20 19:52 OF FACE W/ EYE DROPS latex Allergy Rash/Hives Verified 01/18/20 19:52 levothyroxine sodium Allergy Unknown Verified 01/18/20 19:52 [From Synthroid] losartan Allergy Unknown Verified 01/18/20 19:52 Penicillins Allergy Rash/Hives Verified 01/18/20 19:52 Sulfa (Sulfonamide Allergy Swelling Verified 01/18/20 19:52 Antibiotics) IN MOUTH sulfamethoxazole Allergy swelling Verified 01/18/20 19:52 [From Bactrim] tongue sulfanilamide Allergy Unknown Verified 01/18/20 19:52 trimethoprim [From Bactrim] Allergy Swelling Verified 01/18/20 19:52 venom-honey bee Allergy Dyspnea Verified 01/18/20 19:52 [bee venom (honey bee)] cinnamon [Cinnamon] AdvReac Dyspnea Verified 01/18/20 19:52 codeine AdvReac Nausea & Verified 01/18/20 19:52 Vomiting paola AdvReac Dyspnea Verified 01/18/20 19:52 Iodinated Contrast Media AdvReac Dyspnea Verified 01/18/20 19:52 [Iodinated Contrast- Oral and IV Dye] montelukast sodium AdvReac Wheezing Verified 01/18/20 19:52 [From Singulair] pantoprazole sodium AdvReac Abdominal Verified 01/18/20 19:52 [From Protonix] Pain red dye AdvReac Abdominal Verified 01/18/20 19:52 Pain BANDAIDS Allergy Rash/Hives Uncoded 01/18/20 19:52 Dye for gallbladder scan. Allergy Anaphylaxis Uncoded 01/18/20 19:52 tomatoes Allergy Abdominal Uncoded 01/18/20 19:52 Pain Physical Exam Vitals: Vital Signs Temp Pulse Pulse Resp BP BP Pulse Ox 01/19/20 04:05 97.9 F 86 12 108/69 96 01/19/20 00:15 12 01/18/20 22:04 98.0 F 76 12 153/63 92 L 01/18/20 19:42 12 01/18/20 18:30 86 18 166/74 01/18/20 18:00 88 16 170/78 100 01/18/20 17:30 90 16 181/84 100 01/18/20 17:00 96 16 169/80 100 01/18/20 16:30 164/76 100 01/18/20 16:27 98 01/18/20 16:22 98.7 F 78 18 164/76 98 Intake and Output 01/18/20 01/19/20 01/19/20 22:59 06:59 14:59 Intake Total 600 Balance 600 Intake: Intake, IV Titration 300 Amount Sodium Chloride 0.9% 1, 300 000 ml @ 75 mls/hr IV . [id number] [facility] Rx#:[id number] Oral 300 Other: Voiding Method Toilet Toilet Toilet Diaper Diaper Incontinent Incontinent # Voids 2 3 1 # Bowel Movements 2 1 Weight 40.37 kg On physical examination, patient appears comfortable in no apparent distress. HEAD: Normocephalic, atraumatic. EYES: No scleral icterus. No conjunctival injection. MOUTH: No lesions, tongue midline. NECK: Trachea midline, no gross abnormalities. CHEST: Decreased air entry in all lung arauz. HEART: S1-S2 appreciated. ABDOMEN: Soft, thin tender to palpation. Bowel sounds are positive. No org anomegaly. No guarding or rigidity. EXTREMITIES: No pedal edema. SKIN: No rashes, no jaundice. NEUROLOGIC: Alert and oriented x3. No focal deficits. Results CBC & Chem 7: 01/20/20 02:24 01/20/20 02:24 Labs: Abnormal Lab Results - Last 24 Hours (Table) 01/18/20 01/18/20 01/19/20 Range/Units 16:55 16:55 01:00 RBC 3.29 L (3.80-5.40) m/uL Hgb 9.3 L D (11.4-16.0) gm/dL Hct 29.2 L (34.0-46.0) % RDW 16.5 H (11.5-15.5) % Sodium 128 L (137-145) mmol/L Potassium (3.5-5.1) mmol/L BUN 19 H (7-17) mg/dL Creatinine 2.42 H (0.52-1.04) mg/dL Glucose (74-99) mg/dL Calcium 7.9 L (8.4-10.2) mg/dL AST 47 H (14-36) U/L Total Protein 5.1 L (6.3-8.2) g/dL Albumin 2.4 L (3.5-5.0) g/dL Urine Protein 3+ H (Negative) Urine Glucose (UA) 1+ H (Negative) Urine Blood Trace H (Negative) 01/19/20 Range/Units 06:48 RBC (3.80-5.40) m/uL Hgb (11.4-16.0) gm/dL Hct (34.0-46.0) % RDW (11.5-15.5) % Sodium 133 L (137-145) mmol/L Potassium 3.3 L (3.5-5.1) mmol/L BUN (7-17) mg/dL Creatinine 2.42 H (0.52-1.04) mg/dL Glucose 109 H (74-99) mg/dL Calcium 7.8 L (8.4-10.2) mg/dL AST (14-36) U/L Total Protein (6.3-8.2) g/dL Albumin (3.5-5.0) g/dL Urine Protein (Negative) Urine Glucose (UA) (Negative) Urine Blood (Negative) US - abdomen: report reviewed (Mild right hydronephrosis and mild tomography ultrasound) Assessment and Plan (1) Ascites Narrative/Plan: 69-year-old female with multiple medical comorbidities including prior history of hepatitis C treated with antiviral therapy who presented with recurrent abdominal pain. Long-standing history of abdominal pain. Imaging has been performed multiple times on recent admission, currently showing increasing ascites. No history for the patient's toleration of cirrhosis. Denies any encephalopathy or GI bleeding. Plan for paracentesis if possible with further sedation of etiology, suspicion for possible underlying cirrhosis given a known history of hepatitis C. Current Visit: Yes Status: Acute Code(s): R18.8 - OTHER ASCITES SNOMED Code(s): 313055066 (2) History of hepatitis C Current Visit: Yes Status: Acute Code(s): Z86.19 - PERSONAL HISTORY OF OTHER INFECTIOUS AND PARASITIC DISEASES SNOMED Code(s): 44016597379849 (3) Abdominal pain Current Visit: Yes Status: Acute Code(s): R10.9 - UNSPECIFIED ABDOMINAL PAIN SNOMED Code(s): 56435230 Plan: Supportive care Clear liquid diet Nothing by mouth after midnight Appreciate surgical recommendations Plan for EGD and colonoscopy by surgery tomorrow Paracentesis ordered with fluid studies Continue other medical management Further recommendations pending findings of endoscopy and paracentesis Thank you for allowing us to participate in the care of this patient
--- NOTE | 2020-01-20 10:43 | P.PN ---
Subjective Progress Note Date: 01/20/20 This is a 68-year-old female one of Dr. Colbert patient with past medical history of hepatitis C post the Harvoni therapy, history of CAD with non-ST elevated myocardial infarction in April 2017 status post heart catheterization and stenting of the RCA with heavily calcified right and left coronary systems and recommendations to maximize medical treatment, COPD, asthma, chronic hypoxic respiratory failure on home O2 at 3 L nasal cannula, previous history of DVT along with Takosubu syndrome, GI bleed (April 2016), chronic kidney disease III, multiple admissions for failure to thrive and chronic abdominal pain. 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 Islas at that time. History of carotid stenosis and aortic aneurysm followed by Dr. Costa. Patient had a recent hospitalization January 04 12/19/2059 which time she was treated for abdominal pain and underwent extensive workup including CAT scan of the abdomen and pelvis without contrast revealed dilated common bile duct. Correlate with lab values and HIDA scan if concern for acute cholecystitis. Ultrasound is unlikely to be beneficial due to adjacent bowel loops. Moderate degree of colonic fecal stasis and dilated fluid-filled small bowel in the right abdomen. Findings favor ileus. Avascular necrosis of the hips. Ultrasound of the abdomen revealed dilated common bile duct at 1 cm. Right upper quadrant ultrasound otherwise unremarkable. CAT scan of the chest revealed posterior right apical band of thickening may represent minimal increase in size. Extensive emphysematous changes. Renal ultrasound revealed loss of cortical medullary differentiation bilaterally suggest chronic medical renal disease. Small amount of ascites. Repeat CAT scan of the abdomen and pelvis without contrast on January 09 revealed mild new right hydronephrosis without obstructive pr ocess seen. New small pleural effusions. Abdominal ascites small volume overall. Mesenteric edema likely from fluid overload. Marked degree of colonic fecal stasis. Severe atherosclerosis of the abdominal aorta and aneurysm with vascular stent graft. Avascular necrosis of the hips. Enlarged common bile duct poorly seen. She was evaluated by multiple consultants for weight loss, anorexia and chronic abdominal pain. General surgery evaluated the patient and place her on magnesium citrate for constipation and suspect colitis. Oncology recommended consideration for outpatient PET scan and biopsy of increasing pulmonary nodule. Anemia was thought to be secondary to chronic kidney disease, nutritional deficiencies and chronic inflammation. Patient was also seen by nephrology for acute kidney injury. Patient was discharged home on January 10 in stable condition. Patient states that she was feeling fine initially. She was on Senokot and was having a bowel movement daily until Friday. She states that switched to be very soft pudding consistency. She's been taking MiraLAX every other day as well. She also states she had some increased edema to her legs and feet. Patient complains of significant pain to the right lower quadrant. Patient presented to [facility] emergency center for evaluation. She was found to be afebrile, heart rate 70, blood pressure 164/76, pulse ox 98% on room air. WBC was 10, hemoglobin 9.3, sodium 128, BUN 19 and creatinine 2.42, blood sugar 97. CAT scan of the abdomen and pelvis without contrast revealed worsening abdominal ascites, no large volume. Redemonstration of pleural effusion and emphysematous change in the lungs. Abdominal aortic aneurysm and thoracic aortic aneurysm with extensive atherosclerosis and aortob iiliac stents. Diffuse bowel wall thickening of the stomach may relate to incomplete distention, gastritis or less likely neoplasm. A similar degree of mild right hydronephrosis. Patient was admitted to the [facility] floor and consults placed with GI for ascites, general surgery for possible EGD co lonoscopy and appendix evaluation which was not identified on the CAT scan. Patient was made nothing by mouth and eliquis placed on hold. Also repeat CAT scan of the abdomen and pelvis with oral contrast has been ordered and ultrasound to evaluate for paracentesis. 01/19: CAT scan of the abdomen and pelvis with oral contrast revealed increased seen moderate abdominal pelvic ascites. Continued small left pleural effusion but increasing left basilar opacities. Correlate to exclude pneumonia. Minimal limited assessment due to lack of IV contrast. Possible torquing of the bowel in the right lower quadrant pulling of mesenteric fat and vessels, internal luminal mass effect pushing contrast to the periphery of the cecum. Unable to exclude some type of volvulus or intussusception pathology. Redemonstrated AAA. Diffuse gastric fold thickening may reflect gastritis. Bilateral femoral head AVN. Patient underwent EGD and colonoscopy today with Dr. Milligan. Postoperative diagnoses are mild antral gastritis, Ijeoma esophagitis biopsies pending, tortuous colon. The scope could not be passed beyond the left colon secondary to tortuosity valve. Dr. Milligan is recommended the patient be transferred to [facility] for further evaluation. Patient continues to have right lower quadrant pain and tenderness. 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 Objective - Vital Signs Vital signs: Vital Signs Temp 97.6 F 01/20/20 08:22 Pulse 87 01/20/20 08:22 Resp 20 01/20/20 08:22 BP 193/82 01/20/20 08:22 Pulse Ox 99 01/20/20 08:22 Intake & Output 01/19/20 01/20/20 01/20/20 18:59 06:59 18:59 Intake Total 200 Balance 200 Weight 40.37 kg Intake: IV 200 Other: Voiding Method Toilet Toilet Bedside Commode Bedside Commode # Voids 1 4 # Bowel Movements 1 4 - Exam Review of Systems Constitutional: Reports anorexia, Reports fatigue, Reports lethargy, Reports malaise, Reports poor appetite, Reports weakness, Reports weight loss, Denies chills/fever Ears, nose, mouth and throat: Denies dysphagia, Denies headache, Denies nasal congestion, Denies nasal discharge, Denies sore throat, Denies vertigo Cardiovascular: Denies chest pain, Denies decreased exercise tolerance, Denies dyspnea on exertion, Denies edema, Denies leg edema, Denies lightheadedness, Denies shortness of breath, Denies syncope Respiratory: Denies cough, Denies cough with sputum, Denies dyspnea, Denies excessive sputum, Denies hemoptysis, Denies home oxygen, Denies respiratory infections, Denies wheezing Gastrointestinal: Reports abdominal pain, denies nausea, Denies constipation, Denies diarrhea, Denies loss of appetite, Denies vomiting Genitourinary: Denies dysuria, Denies hematuria, Denies urgency, Denies urinary frequency Menstruation: Reports postmenopausal Musculoskeletal: Reports gait dysfunction, Reports muscle weakness, Denies frequent falls, Denies myalgias Integumentary: Denies pruritus, Denies rash, Denies wounds Neurological: Denies change in mentation, Denies change in speech, Denies numbness, Denies seizures, Denies weakness Psychiatric: Denies anxiety, Denies depression Endocrine: Denies fatigue, Denies weight change Physical Examination: - Constitutional General appearance: cooperative, in no acute distress, frail appearing - EENT Eyes: anicteric sclerae, PERRLA, normal appearance ENT: hearing grossly normal NG tube with bile-colored return. - Neck Neck: no lymphadenopathy, normal ROM, no other, no rigidity, no stridor, no thyromegaly - Respiratory Respiratory: bilateral: CTA, negative: diminished, dullness, rales, rhonchi - Cardiovascular Rhythm: regular Heart sounds: normal: S1, S2 Abnormal Heart Sounds: no systolic murmur, no diastolic murmur, no rub, no S3 Gallop, no S4 Gallop, no click, no other - Gastrointestinal General gastrointestinal: normal bowel sounds, soft, tenderness to the right lower quadrant. - Integumentary Integumentary: no rash - Neurologic Neurologic: CNII-XII intact - Musculoskeletal Musculoskeletal: gait normal, strength equal bilaterally - Psychiatric Psychiatric: A&O x's 3, appropriate affect - Labs CBC & Chem 7: 01/20/20 02:24 01/20/20 02:24 Labs: Abnormal Lab Results - Last 24 Hours (Table) 01/19/20 01/19/20 01/19/20 Range/Units 06:48 13:25 20:18 RBC (3.80-5.40) m/uL Hgb (11.4-16.0) gm/dL Hct (34.0-46.0) % MCHC (31.0-37.0) g/dL RDW (11.5-15.5) % Sodium (137-145) mmol/L Potassium 3.1 L (3.5-5.1) mmol/L Creatinine (0.52-1.04) mg/dL Calcium (8.4-10.2) mg/dL AST (14-36) U/L Total Protein (6.3-8.2) g/dL Albumin (3.5-5.0) g/dL Urine Protein 3+ H (Negative) Urine Glucose (UA) 1+ H (Negative) Urine Blood Trace H (Negative) Urine Bacteria Rare H (None) /hpf Urine Mucus Rare H (None) /hpf Hep C IgG Ab Reactive H (Non-Reactive) 01/20/20 01/20/20 Range/Units 02:24 02:24 RBC 3.33 L (3.80-5.40) m/uL Hgb 9.4 L (11.4-16.0) gm/dL Hct 31.2 L (34.0-46.0) % MCHC 30.2 L (31.0-37.0) g/dL RDW 16.6 H (11.5-15.5) % Sodium 131 L (137-145) mmol/L Potassium 3.2 L (3.5-5.1) mmol/L Creatinine 2.21 H (0.52-1.04) mg/dL Calcium 7.7 L (8.4-10.2) mg/dL AST 41 H (14-36) U/L Total Protein 5.3 L (6.3-8.2) g/dL Albumin 2.5 L (3.5-5.0) g/dL Urine Protein (Negative) Urine Glucose (UA) (Negative) Urine Blood (Negative) Urine Bacteria (None) /hpf Urine Mucus (None) /hpf Hep C IgG Ab (Non-Reactive) Assessment and Plan Plan: 1. Abdominal pain right lower quadrant, acute on chronic, anorexia and weight loss of unclear etiology most likely secondary to tortuous colon. GI consult a ppreciated. Repeat CAT scan of the abdomen and pelvis with oral contrast as above. Patient is status post EGD and colonoscopy. Continue Remeron 7.5 mg at bedtime. 2. Increasing ascites. GI consult appreciated. Abdominal ultrasound ordered to evaluate for paracentesis. 3. Acute kidney injury with chronic kidney disease stage III. Avoid nephrotoxic agents, nonsteroidal anti-inflammatory. Continue IV fluids at 75 mL/h, recheck electrolytes and renal function in the morning. Nephrology c onsult. Continue sodium bicarb 650 mg twice daily. 2. Hyponatremia. Continue IV fluids. Recheck electrolytes. 5. Hypertension and hypertensive cardiovascular disease. Continue amlodipine 5 mg twice daily, Coreg 6.25 mg twice daily, hydralazine 50 mg twice daily. 6. Peripheral vascular disease with history of left common iliac artery stent graft with focal aneurysm 3.2 cm severe stenosis beyond aneurysm, right common iliac artery 2.6 cm with modest focal stenosis just beyond. Palpable aneurysm in the left lower quadrant, nontender to palpate. 7. Bilateral avascular necrosis bilateral femoral seen by Dr. Whipple orthopedic surgeon no intervention needed. 8. History of Viridans strep bacteremia secondary to endovascular infection. 9. Chronic back pain. 10. Chronic anemia of chronic disease. Hemoglobin stable 11. Paroxysmal atrial fibrillation. Continue Coreg. Eliquis on hold. 12. Hep C S/P Harvoni therapy. 13. Hyperlipidemia. Patient was unable to tolerate Lipitor. 14. Abdominal aortic aneurysm S/P endovascular stent. 15. Chronic tobacco use and dependence. Smoking cessation. 16. Migraine Headache. 17. Restless leg syndrome. Continue Mirapex 0.125 mg orally at bedtime. 18. Obstructive sleep apnea. Stable. 19. Generalized anxiety disorder with panic disorder, recurrent depression. Cymbalta 60 mg twice daily, Remeron 7.5 mg at bedtime and Xanax 1 mg twice daily as needed. 20. Overactive bladder. Hold toviaz. 21. DVT prophylaxis. Eliquis on hold. SCDs and MILANA hose.. 22. GI prophylaxis. Protonix 23. Severe protein calorie malnutrition. Continue ensure. 24. COVID-19 testing in process. Discharge plan: Transfer to [facility] once arrangements are completed. Impression and plan of care have been directed as dictated by the signing physician. Coby Joaquin nurse practitioner acting as scribe for signing physician.
--- NOTE | 2020-01-20 10:51 | P.TRANS ---
Providers Date of admission: 01/18/20 18:51 Expected date of discharge: 01/20/20 Attending physician: Gloria Hernandez Consults: 01/18/20 18:51 Consult Physician Urgent Consulting Provider: Ron Dye Consult Reason/Comments: ab pain, ascities Do you want consulting provider notified?: Yes 01/19/20 08:06 Consult Physician Routine Consulting Provider: Darius Milligan Consult Reason/Comments: RLQ pain, anorexia, eval appy, ?EGD/Colon Do you want consulting provider notified?: Yes 01/19/20 08:15 Consult Physician Routine Consulting Provider: Koki Richard Consult Reason/Comments: hyponatremia, ALBERT Do you want consulting provider notified?: Yes 01/20/20 08:35 Consult Physician Routine Consulting Provider: Jose Echevarria Consult Reason/Comments: anorxia, depression, follows w Dr. Mccracken Do you want consulting provider notified?: Yes Primary care physician: [facility] Course: This is a 68-year-old female one of Dr. Colbert patient with past medical history of hepatitis C post the Harvoni therapy, history of CAD with non-ST elevated myocardial infarction in April 2017 status post heart catheterization and stenting of the RCA with heavily calcified right and left coronary systems and recommendations to maximize medical treatment, COPD, asthma, chronic hypoxic respiratory failure on home O2 at 3 L nasal cannula, previous history of DVT along with Takosubu syndrome, GI bleed (April 2016), chronic kidney disease III, multiple admissions for failure to thrive and chronic abdominal pain. 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 Islas at that time. History of carotid stenosis and aortic aneurysm followed by Dr. Costa. Patient had a recent hospitalization January 04 12/19/2059 which time she was treated for abdominal pain and underwent extensive workup including CAT scan of the abdomen and pelvis without contrast revealed dilated common bile duct. Correlate with lab values and HIDA scan if concern for acute cholecystitis. Ultrasound is unlikely to be beneficial due to adjacent bowel loops. Moderate degree of colonic fecal stasis and dilated fluid-filled small bowel in the right abdomen. Findings favor ileus. Avascular necrosis of the hips. Ultrasound of the abdomen revealed dilated common bile duct at 1 cm. Right upper quadrant ultrasound otherwise unremarkable. CAT scan of the chest revealed posterior right apical band of thickening may represent minimal increase in size. Extensive emphysematous changes. Renal ultrasound revealed loss of cortical medullary differentiation bilaterally suggest chronic medical renal disease. Small amount of ascites. Repeat CAT scan of the abdomen and pelvis without contrast on January 09 revealed mild new right hydronephrosis without obstructive process seen. New small pleural effusions. Abdominal ascites small volume overall. Mesenteric edema likely from fluid overload. Marked degree of colonic fecal stasis. Severe atherosclerosis of the abdominal aorta and aneurysm with vascular stent graft. Avascular necrosis of the hips. Enlarged common bile duct poorly seen. She was evaluated by multiple consultants for weight loss, anorexia and chronic abdominal pain. General surgery evaluated the patient and place her on magnesium citrate for constipation and suspect colitis. Oncology recommended consideration for outpatient PET scan and biopsy of increasing pulmonary nodule. Anemia was thought to be secondary to chronic kidney disease, nutritional deficiencies and chronic inflammation. Patient was also seen by nephrology for acute kidney injury. Patient was discharged home on January 10 in stable condition. Patient states that she was feeling fine initially. She was on Senokot and was having a bowel movement daily until Friday. She states that switched to be very soft pudding consistency. She's been taking MiraLAX every other day as well. She also states she had some increased edema to her legs and feet. Patient complains of significant pain to the right lower quadrant. Patient presented to [facility] emergency center for evaluation. She was found to be afebrile, heart rate 70, blood pressure 164/76, pulse ox 98% on room air. WBC was 10, hemoglobin 9.3, sodium 128, BUN 19 and creatinine 2.42, blood sugar 97. CAT scan of the abdomen and pelvis without contrast revealed worsening abdominal ascites, no large volume. Redemonstration of pleural effusion and emphysematous change in the lungs. Abdominal aortic aneurysm and thoracic aortic aneurysm with extensive atherosclerosis and aortobiiliac stents. Diffuse bowel wall thickening of the stomach may relate to incomplete distention, gastritis or less likely neoplasm. A similar degree of mild right hydronephrosis. Patient was admitted to the [facility] floor and consults placed with GI for ascites, general surgery for possible EGD colonoscopy and appendix evaluation which was not identified on the CAT scan. Patient was made nothing by mouth and eliquis placed on hold. Also repeat CAT scan of the abdomen and pelvis with oral contrast has been ordered and ultrasound to evaluate for paracentesis. 01/19: CAT scan of the abdomen and pelvis with oral contrast revealed increased seen moderate abdominal pelvic ascites. Continued small left pleural effusion but increasing left basilar opacities. Correlate to exclude pneumonia. Minimal limited assessment due to lack of IV contrast. Possible torquing of the bowel in the right lower quadrant pulling of mesenteric fat and vessels, internal luminal mass effect pushing contrast to the periphery of the cecum. Unable to exclude some type of volvulus or intussusception pathology. Redemonstrated AAA. Diffuse gastric fold thickening may reflect gastritis. Bilateral femoral head AVN. Patient underwent EGD and colonoscopy today with Dr. Milligan. Postoperative diagnoses are mild antral gastritis, Ijeoma esophagitis biopsies pending, tortuous colon. The scope could not be passed beyond the left colon secondary to tortuosity valve. Dr. Milligan is recommended the patient be transferred to [facility] for further evaluation. Patient continues to have right lower quadrant pain and tenderness. marketing manager is making arrangements for transfer to [facility] which will most likely occur today. Transfer diagnoses: 1. Abdominal pain right lower quadrant, acute on chronic, anorexia and weight loss of unclear etiology most likely secondary to tortuous colon. 2. Ijeoma esophagitis, biopsies pending. 3. Increasing ascites of unclear etiology. 4. Acute kidney injury with chronic kidney disease stage III. 5. Hyponatremia. 6. Hypertension and hypertensive cardiovascular disease. 7. Peripheral vascular disease with history of left common iliac artery stent graft with focal aneurysm 3.2 cm severe stenosis beyond aneurysm, right common iliac artery 2.6 cm with modest focal stenosis just beyond. 8. Bilateral avascular necrosis bilateral femoral seen by Dr. Whipple orthopedic surgeon no intervention needed. 9. History of Viridans strep bacteremia secondary to endovascular infection. 10. Chronic back pain. 11. Chronic anemia of chronic disease. 12. Paroxysmal atrial fibrillation. 13. Hep C S/P Harvoni therapy. 14. Hyperlipidemia. 15. Abdominal aortic aneurysm S/P endovascular stent. 16. Chronic tobacco use and dependence. 17. Migraine Headache. 18. Restless leg syndrome. 19. Obstructive sleep apnea. 20. Generalized anxiety disorder with panic disorder, recurrent depression. Cymbalta 60 mg twice daily, Remeron 7.5 mg at bedtime and Xanax 1 mg twice daily as needed. 21. Overactive bladder. Hold toviaz. 22. Severe protein calorie malnutrition. Continue ensure. 23. COVID-19 testing in process. Discharge plan: Transfer to [facility] once arrangements are completed. Impression and plan of care have been directed as dictated by the signing physician. Coby Joaquin nurse practitioner acting as scribe for signing physician. Plan - Transfer Summary Transfer Medications: Active Medications Generic Name Dose Route Start Last Admin Trade Name Freq PRN Reason Stop Dose Admin Alprazolam 1 mg 01/18/20 21:23 Xanax PO BID PRN Anxiety Amlodipine Besylate 5 mg 01/18/20 21:30 01/20/20 08:43 Norvasc PO 5 mg BID CRISTA Administration Carvedilol 6.25 mg 01/19/20 07:30 01/20/20 08:42 Coreg PO 6.25 mg BID-W/MEALS CRISTA Administration Dicyclomine HCl 20 mg 01/18/20 21:23 01/19/20 08:24 Bentyl PO 20 mg TID PRN Administration stomach cramping Duloxetine HCl 60 mg 01/18/20 21:30 01/20/20 08:41 Cymbalta PO 60 mg BID CRISTA Administration Hydralazine HCl 50 mg 01/18/20 21:30 01/20/20 08:42 Apresoline PO 50 mg BID CRISTA Administration Hydromorphone HCl 0.5 mg 01/18/20 18:51 01/20/20 02:37 Dilaudid IVP 0.5 mg Q3HR PRN Administration Moderate Pain Sodium Chloride 1,000 mls @ 75 mls/hr 01/18/20 19:00 01/19/20 23:05 Saline 0.9% IV 75 mls/hr .[id number] CRISTA Administration Levothyroxine Sodium 50 mcg 01/19/20 06:30 01/20/20 08:41 Synthroid PO 50 mcg 0630 CRISTA Administration Mirtazapine 7.5 mg 01/18/20 21:30 01/19/20 21:20 Remeron PO 7.5 mg HS CRISTA Administration Miscellaneous Information 1 each 01/20/20 03:49 Potassium Per Protocol MISCELLANE DAILY PRN Per Protocol Protocol Naloxone HCl 0.2 mg 01/18/20 18:51 Narcan IV Q2M PRN Opioid Reversal Non-Formulary Medication 60 mg 01/19/20 09:00 01/20/20 08:56 Dexlansoprazole [Dexilant] PO Not Given DAILY CRISTA Nystatin 500,000 unit 01/20/20 09:00 Mycostatin Oral Susp PO QID CRISTA Ondansetron HCl 4 mg 01/18/20 18:51 Zofran IVP Q8HR PRN Nausea And Vomiting Pantoprazole Sodium 40 mg 01/18/20 19:00 01/20/20 08:43 Protonix IV 40 mg DAILY CRISTA Administration Potassium Chloride 20 meq 01/19/20 09:00 01/20/20 08:42 K-Dur 20 PO 20 meq DAILY CRISTA Administration Pramipexole Dihydrochloride 0.125 mg 01/18/20 21:30 01/19/20 21:20 Mirapex PO 0.125 mg HS CRISTA Administration Sodium Bicarbonate 650 mg 01/19/20 09:00 01/20/20 08:43 Sodium Bicarbonate Tab PO 650 mg BID CRISTA Administration Tiotropium [place] 1 puff 01/19/20 08:00 01/19/20 08:51 Spiriva INHALATION 1 puff RT-DAILY CRISTA Administration Trospium 20 mg 01/19/20 09:00 01/20/20 08:41 Sanctura PO 20 mg BID CRISTA Administration Follow up Appointment(s)/Referral(s): Jenaro Colbert DO [Primary Care Provider] - 1-2 days [facility] Nurse, [NON-STAFF] - 1 Week Darius Milligan MD [STAFF PHYSICIAN] - 1 Week
[2020-01-20] MEDS: NYSTATIN 100,000 UNIT/ML SUSP 500,000 UNIT/5 ML CUP PO SCH ×2 (11:04→16:37)
[2020-01-20] MEDS: TIOTROPIUM 18 MCG/PUFF INHALER INHALATION SCH (11:08)
[2020-01-20 12:53] VITALS: BP 145/65; PULSE 90; RESP 16; TEMP 97.7
--- NOTE | 2020-01-20 14:48 | P.CN ---
Psychiatric Consult - . Consult date: 01/20/20 Consult:: IDENTIFYING DATA: She is a 69-year-old female admitted to medicine service with complaints of abdominal discomfort and chronic diarrhea. The hospitalist consult to psychiatry because he has a history of psychiatric treatment for eating disorder, depression and anxiety. HISTORY OF PRESENT ILLNESS: I reviewed the medical record, interviewed the patient and spoke with her outpatient psychiatrist, Dr. Mccracken, the telephone.. She had been authorized the transfer to [facility] further evaluation and treatment of what appears to be an intestinal obstruction. Dr. Mccracken as been treating her for about 3 years at [facility] for eating disorder, depression and anxiety. She believes that she has a bulimia nervosa, major depressive disorder and a problem with abuse of benzodiazepines. He last met with her in September 2019 and recalls that he prescribed her Effexor for depression and anxiety. Since she last met with Dr. Mccracken her primary discontinued Effexor and prescribed her the Cymbalta and Remeron as well as when necessary Xanax. The patient denied feeling depressed or having thoughts of or suicide. She is very concerned and anxious about her health and her medical conditions. She is aware that she will be transferred to [facility] for further evaluation. She complained of feeling weak and fatigued. She is able to eat but experiences occasional vomiting. She denied experiencing psychotic symptoms such as hallucinations, delusions or thought disturbances. She denied use of alcohol or drugs. PAST PSYCHIATRIC HISTORY: She has received mental health services since she was about 17 years old. She had one psychiatric hospitalization when she was in the in 1966.. PAST MEDICAL HISTORY: See admission history. ALLERGIES: She has multiple ALLERGIES including naproxen, clindamycin and gentamicin. SUBSTANCE USE HISTORY:. She denied history of drug or alcohol use problems. FAMILY PSYCHIATRIC/SUBSTANCE USE HISTORY: She is unaware of family history of mental illness. SOCIAL HISTORY:. She retired and lives with her second and their home. She was in the [employer] for about one year and received a honorable discharge under medical conditions. She has 2 children and 5 grandchildren.. MENTAL STATUS EXAM: She presented as a thin, almost emaciated appearing 69-year-old woman who looks much older than her stated age. She made eye contact and attended the interview. She had a anxious facial expression. She had psychomotor retardation but no abnormal movements. Her speech was spontaneous with decreased rate but normal volume. Affect was anxious. She denied suicidal ideation and wishes. She denied homicidal ideation. She denied feeling hopeless, helpless or worthless. She did not express ideas reference, paranoid ideation or delusions. Her thinking was concrete. Associations were coherent, logical and goal directed. She denied hallucinations and did not appear to be responding to internal stimuli. We completed the [employer] Orientation Memory and Concentration test. Her total weighted error score was 2; a total weighted error score greater than 10 is consistent with cognitive impairment. She was oriented to month and year. She estimates time correctly. She is able to register memory phrase "Jose Ballesteros, [address] [place] [address]." She is able contract from and name the months of the year backwards beginning with July. She made one error when recalling the memory phrase.. IMPRESSIONS: She is a 69-year-old woman with multiple medical problems [facility] for ongoing gastrointestinal complaints. She spends since been diagnosed with a colonic obstruction and is referred to [facility] for continued evaluation and treatment. She has a long history of depression, anxiety and eating problems. She is anxious about her medical conditions and her physical health. There is no indication for transfer to the psychiatric unit. She should be referred back to The nephrology social worker after discharge for continued outpatient mental service when she is medically stable. PLAN: Continue current medications Cymbalta 60 mg by mouth twice a day and Remeron 7.5 mg at bedtime. Use caution with benzodiazepines given her reported history of benzodiazepine use problems. Psychiatry will sign off his case.. 01/20/20 14:25
[2020-01-20 14:56] LABS: C-ANCA <1:20 Titer (<1:20)
--- NOTE | 2020-01-20 15:07 | PN ---
PROGRESS NOTE Patient is seen for followup for acute kidney injury. Her renal function is slightly improved, serum creatinine down to 2.2 from 2.42 on initial admission. The patient is currently maintained on IV fluids at 75 mL an hour. She states that she has had good urine output. EXAMINATION: Blood pressure was 145/65, heart rate 90 per minute, she is afebrile examination of the heart S1, S2. Examination:of the lungs, decreased breath sounds at bases. Abdomen is soft, obese. Examination of the lower extremities shows no significant edema. LO[employer] PATTERN[employer]ER exam grossly intact. LABS: Show sodium 131, potassium 3.2, chloride 102, CO2 is 23. BUN 14, serum creatinine 2.21, hemoglobin 9.4 g/dL. UA shows 3+ protein 1+ or trace blood. So far serologies are negative. Hepatitis C antibody was positive. ASSESSMENT: 1. Acute kidney injury, currently nonoliguric, somewhat improved. Patient is maintained on IV fluids. I will continue with the IV fluids for now. Workup for proteinuria hematuria has been ordered, which is currently negative. No evidence of obstruction on the CT scan. 2. Chronic kidney disease stage 3 with creatinine about 1.4-[address] back to April of 2019. Hepatitis C serologies were positive. Otherwise, all other negative serologies are negative thus far. 3. Mild right hydronephrosis noted on CT scan. 4. Hyponatremia which was hypovolemic and improved with normal saline. 5. A Ijeoma esophagitis noted on EGD, started on Diflucan. PLAN: Continue IV fluids, repeat labs in a.m. Replace potassium and continue to avoid nephrotoxic agents. MMODL / IJN: [id number] /
== END 2020-01-20 18:12 | disposition short-term general hospital (02) | DRG 393 ==
LOC: EC 16:21 → 5NMEDONC 18:51
PROVIDERS: ADMIT Family Medicine; ATTEND Family Medicine
PROC: 0DB78ZX Excision of Stomach, Pylorus, Via Natural or Artificial Opening Endoscopic, Diagnostic (ICD-10-PCS; principal; 2020-01-20 07:15)
PROC: 0DB38ZX Excision of Lower Esophagus, Via Natural or Artificial Opening Endoscopic, Diagnostic (ICD-10-PCS; principal; 2020-01-20 07:15)
PROC: 0DJD8ZZ Inspection of Lower Intestinal Tract, Via Natural or Artificial Opening Endoscopic (ICD-10-PCS; principal; 2020-01-20 07:15)
DX: Q43.8 Other specified congenital malformations of intestine (principal); E43 Unspecified severe protein-calorie malnutrition; B37.81 Candidal esophagitis; E87.1 Hypo-osmolality and hyponatremia; F33.9 Major depressive disorder, recurrent, unspecified; J90 Pleural effusion, not elsewhere classified; J96.11 Chronic respiratory failure with hypoxia; M87.9 Osteonecrosis, unspecified; N13.30 Unspecified hydronephrosis; N17.9 Acute kidney failure, unspecified; R18.8 Other ascites; Z68.1 Body mass index [BMI] 19.9 or less, adult; K83.8 Other specified diseases of biliary tract; D63.8 Anemia in other chronic diseases classified elsewhere; N18.3 Chronic kidney disease, stage 3 (moderate); I13.10 Hypertensive heart and chronic kidney disease without heart failure, with stage 1 through stage 4 chronic kidney disease, or unspecified chronic kidney disease; I71.2 Thoracic aortic aneurysm, without rupture; R10.9 Unspecified abdominal pain; B19.20 Unspecified viral hepatitis C without hepatic coma; E78.5 Hyperlipidemia, unspecified; Z11.59 Encounter for screening for other viral diseases; E86.1 Hypovolemia; E87.70 Fluid overload, unspecified; F17.219 Nicotine dependence, cigarettes, with unspecified nicotine-induced disorders; F41.0 Panic disorder [episodic paroxysmal anxiety]; F41.1 Generalized anxiety disorder; G25.81 Restless legs syndrome; G43.909 Migraine, unspecified, not intractable, without status migrainosus; G47.33 Obstructive sleep apnea (adult) (pediatric); G89.29 Other chronic pain; I25.10 Atherosclerotic heart disease of native coronary artery without angina pectoris; I25.2 Old myocardial infarction; I48.0 Paroxysmal atrial fibrillation; I70.0 Atherosclerosis of aorta; I71.4 Abdominal aortic aneurysm, without rupture; I73.9 Peripheral vascular disease, unspecified; J44.9 Chronic obstructive pulmonary disease, unspecified; K29.70 Gastritis, unspecified, without bleeding; K52.9 Noninfective gastroenteritis and colitis, unspecified; N32.81 Overactive bladder; I65.29 Occlusion and stenosis of unspecified carotid artery; K21.9 Gastro-esophageal reflux disease without esophagitis; M54.9 Dorsalgia, unspecified; K57.90 Diverticulosis of intestine, part unspecified, without perforation or abscess without bleeding; K64.8 Other hemorrhoids; G47.00 Insomnia, unspecified; K59.8 Other specified functional intestinal disorders; Z79.01 Long term (current) use of anticoagulants; Z79.82 Long term (current) use of aspirin; Z79.890 Hormone replacement therapy; Z79.899 Other long term (current) drug therapy; Z86.718 Personal history of other venous thrombosis and embolism; Z90.710 Acquired absence of both cervix and uterus; Z95.5 Presence of coronary angioplasty implant and graft; Z90.49 Acquired absence of other specified parts of digestive tract; Z88.0 Allergy status to penicillin; Z88.2 Allergy status to sulfonamides; Z88.8 Allergy status to other drugs, medicaments and biological substances; Z87.01 Personal history of pneumonia (recurrent); Z88.1 Allergy status to other antibiotic agents; Z91.030 Bee allergy status; Z91.041 Radiographic dye allergy status; Z91.040 Latex allergy status; Z91.018 Allergy to other foods; Z99.81 Dependence on supplemental oxygen; Z82.49 Family history of ischemic heart disease and other diseases of the circulatory system; Z82.5 Family history of asthma and other chronic lower respiratory diseases; Z83.79 Family history of other diseases of the digestive system
CPT/HCPCS: 36415; 43239; 45378; 74176; 76705; 76770; 80048; 80053; 81001; 82150; 83690; 84132; 85025; 85027; 85610; 85730; 86038; 86160; 86225; 86255; 86334; 86335; 86803; 87340; 88305; 94640; 96361; 96374; 96375; 99285